=== PATIENT | female | born 1930 | race Caucasian/White ===

== ENCOUNTER 2017-03-13 20:13 | Emergency (ER) | payer OTHER ==
[2017-03-13 20:20] VITALS: BP 139/71; PULSE 65; TEMP 98.2; BMI 26.5
[2017-03-13] MEDS ORDERED: ACETAMINOPHEN 325 MG TABLET (FP) PO ONE (20:54)
--- NOTE | 2017-03-13 20:55 | PDOC ---
History of Present Illness - General Chief Complaint: Laceration Stated Complaint: LACERATION TO LEFT HAND Time Seen by Provider: 03/13/17 20:25 History Source: Patient, Family Exam Limitations: Dementia - History of Present Illness Initial Comments: 03/13/17 20:55 Patient is a 86F with history of dementia, anemia, chondrocalcinosis, hyperlipidemia, hypertension, hypothyroid, Dm, anemia here today complaining of a wound to her left hand. Her daughter reports that the patient was with her home health aid sitting down on a chair in the shower when she suddenly was bleeding from her left hand. The aide denies any fall, head trauma, loss of consciousness or any increased amount of confusion. The wound happened this morning, and patient has been at her baseline the entire time per her daughter. 03/13/17 21:36 Past History - Past Medical History Allergies/Adverse Reactions: Allergies Allergy/AdvReac Type Severity Reaction Status Date / Time No Known Allergies Allergy Verified 03/13/17 20:19 Home Medications: Ambulatory Orders Atorvastatin Ca [Lipitor] 10 mg PO HS #0 tablet 06/14/13 Levothyroxine [Synthroid -] 75 mcg PO DAILY #0 tablet 06/14/13 Metoprolol Succinate [Toprol XL -] 25 mg PO DAILY #0 tab.sr.24h 06/14/13 Multivit-Min/FA/Lycopene/Lut [Centrum Silver Tablet] 1 each PO DAILY #0 tablet 06/14/13 Quinapril HCl [Accupril -] 40 mg PO DAILY #0 tablet 06/14/13 Ascorbic Acid [Vitamin C -] 500 mg PO DAILY #30 tablet 06/20/14 Ferrous Sulfate [Feosol] 325 mg PO BID #60 ud 06/20/14 Slow-Mag - 72.5 mg PO DAILY 12/21/15 Tramadol HCl 50 mg PO PRN PRN 12/21/15 Alprazolam [Xanax] 0.25 mg PO HS 01/22/16 Aspirin [ASA -] 81 mg PO DAILY 01/22/16 Cyanocobalamin (Vitamin B-12) [Vitamin B12] 5,000 mcg PO DAILY 01/22/16 Ibuprofen/Diphenhydramine Cit [Advil Pm Caplet] 1 each PO HS PRN 01/22/16 Memantine HCl [Namenda -] 10 mg PO HS 01/22/16 Metformin HCl [Riomet] 750 mg PO DAILY 01/22/16 Anemia: Yes Asthma: No Cancer: No Cardiac Disorders: No CVA: Yes (TIA) COPD: No CHF: No DVT: No Dementia: Yes Diabetes: Yes GI Disorders: Yes (H/O RECTAL PROLAPSE) Disorders: No HTN: Yes Hypercholesterolemia: Yes Liver Disease: No Suicide Attempt (Hx): No Thyroid Disease: Yes (HYPO) - Surgical History Abdominal Surgery: Yes (RECTAL PROLAPSE REPAIR x 3) Appendectomy: No Cardiac Surgery: No Cholecystectomy: No Lung Surgery: No Neurologic Surgery: No Orthopedic Surgery: No - Immunization History Td Vaccination: Yes TDAP Vaccination: Yes Immunization Up to Date: Yes - Psycho/Social/Smoking Cessation Hx Anxiety: No Suicidal Ideation: No Smoking Status: No Smoking History: Never smoked Have you smoked in the past 12 months: No Number of Cigarettes Smoked Daily: 0 Cigars Per Day: 0 Information on smoking cessation initiated: No Hx Alcohol Use: No Drug/Substance Use Hx: No Substance Use Type: None Hx Substance Use Treatment: No Review of Systems - Review of Systems Able to Perform ROS?: No (2/2 dementia) *Physical Exam - Vital Signs Last Vital Signs Temp Pulse Resp BP Pulse Ox 98.2 F 65 20 139/71 97 03/13/17 20:19 03/13/17 20:19 03/13/17 20:19 03/13/17 20:19 03/13/17 20:19 - Physical Exam Comments: 03/13/17 21:17 GENERAL: Awake, alert, not oriented, in moderate distress HEAD: No signs of trauma, normocephalic, atraumatic CHEST/BACK/HIPS/LEGS/R ARM: No signs of trauma, nontender to palpation L ARM: Moves shoulder and elbow without pain. Bruising along left hand. Not tender in snuffbox. Tender in middle of hand with bruising. Moves all fingers with good strength. Normal cap refill. EYES: PERRLA, EOMI, sclera anicteric, conjunctiva clear ENT: Auricles normal inspection, hearing grossly normal, nares patent, oropharynx clear without exudates. Moist mucosa LUNGS: No distress, speaks full sentences, clear to auscultation bilaterally HEART: Regular rate and rhythm, normal S1 and S2, no murmurs, rubs or gallops, peripheral pulses normal and equal bilaterally. ABDOMEN: Soft, nontender, normoactive bowel sounds. No guarding, no rebound. No masses NEUROLOGICAL: Cranial nerves II through XII grossly intact. Moves all extremities, no focal sensorimotor deficits SKIN: Warm, Dry, normal turgor, no rashes or lesions noted. Medical Decision Making - Medical Decision Making 03/13/17 21:28 86F with dementia, anemia, chondrocalcinosis, hyperlipidemia, hypertension, hypothyroid, Dm, anemia here with hand wound. Vital signs normal and stable. Unable to suture hand due to shallow nature of the wound. Will give tetanus and tylenol to treat. Will evaluate with xray. Will then clean and put on zero form. 03/13/17 22:39 X-ray shows fracture in proximal 5th metacarpal. Wound bandaged with xeroform and put in gutter splint. Will discharge with hand specialist follow up. *DC/Admit/Observation/Transfer Diagnosis at time of Disposition: Metacarpal bone fracture Qualifiers: Encounter type: initial encounter Metacarpal bone: fifth Fracture type: closed Metacarpal location: base Fracture alignment: nondisplaced Laterality: left - Discharge Dispostion Disposition: HOME Condition at time of disposition: Good Admit: No - Referrals Referrals: Behzad Gray MD [Staff Physician] - Laith Wolf MD [Staff Physician] - - Patient Instructions Printed Discharge Instructions: How to Use a Sling, DI for a Hand Fracture Additional Instructions: Please ice the affected area for 20-30 minutes every 3 hours when awake. Try to keep the hand elevated as possible. Use the sling if necessary to keep her from moving her hand. I'm sorry that you broke your hand, and hope you feel better soon! Dr. Brian Gill
--- NOTE | 2017-03-13 21:00 | PDOC ---
Attending Attestation - Resident Resident Name: Brian Gill - ED Attending Attestation I have performed the following: I have examined & evaluated the patient, The case was reviewed & discussed with the resident, I agree w/resident's findings & plan, Exceptions are as noted - HPI HPI: 03/13/17 20:54 86-year-old female with history of dementia, diabetes on aspirin brought in by daughter for evaluation of left hand bruising/swelling/laceration sustained sometime in the late morning. History is lacking some details, per a new home health aide the patient did not fall but she somehow injured her left hand. There was never any loss of consciousness reported, patient was complaining of some left hand pain so daughter brought her in for evaluation. Otherwise notes she is at her baseline, has not noted any other abnormalities. - Physicial Exam PE: 03/13/17 20:56 Vital signs stable, afebrile. Well-appearing, pleasant, baseline dementia Completed exam is atraumatic except for left hand: There is soft tissue bruising over the dorsal/medial aspects over the fourth and fifth metacarpals, no focal bony ttp/deformity. full flexion/extension digits with full strength, brisk cap refill. some limited ROM L wrist, no focal ttp/deformity. v-shaped superficial avulsion laceration over dorsal L hand , some deep tissue exposure but no muscle/tendon injury. no foreign body, no active bleeding though visible stable clots. - Medical Decision Making 03/13/17 21:00 Patient seen and evaluated with the resident. I agree with the overall evaluation, assessment, and management with the following summary of visit: 86-year-old female with overall minor injury to left hand, superficial skin tear without deep tissue involvement, rule out underlying fracture. Neurovascularly intact, otherwise atraumatic and at baseline. Vital signs normal. Left hand and wrist x-ray Update tetanus Wound care, dispo accordingly 03/13/17 22:46 wound care ulnar gutter splint applied to L upper extremity. tolerated well, NVI after splint. sling applied hand referral, [facility], return criteria discussed
[2017-03-13] MEDS ORDERED: DIPHTH,PERTUSS(ACELL),TET 0.5 ML DISP.SYRIN IM ONE (21:01)
[2017-03-13] MEDS ORDERED: ACETAMINOPHEN 325 MG TABLET (FP) ONE (21:44)
== END 2017-03-13 22:54 | disposition home or self-care (01) ==
LOC: JER 20:13
PROC: 3E0234Z Introduction of Serum, Toxoid and Vaccine into Muscle, Percutaneous Approach (ICD-10-PCS; principal; 2017-03-13)
PROC: 2W3DX1Z Immobilization of Left Lower Arm using Splint (ICD-10-PCS; 2017-03-13)
DX: S62.347A Nondisplaced fracture of base of fifth metacarpal bone, left hand, initial encounter for closed fracture (principal); S61.412A Laceration without foreign body of left hand, initial encounter; W18.39XA Other fall on same level, initial encounter; Y93.89 Activity, other specified; Y92.018 Other place in single-family (private) house as the place of occurrence of the external cause; I10 Essential (primary) hypertension; E03.9 Hypothyroidism, unspecified; E11.9 Type 2 diabetes mellitus without complications; Z79.84 Long term (current) use of oral hypoglycemic drugs; F03.90 Unspecified dementia, unspecified severity, without behavioral disturbance, psychotic disturbance, mood disturbance, and anxiety; Z86.73 Personal history of transient ischemic attack (TIA), and cerebral infarction without residual deficits; M11.20 Other chondrocalcinosis, unspecified site
CPT/HCPCS: 73110-TC-LT; 73130-TC-LT; 90715; 99281-25

== ENCOUNTER 2018-05-14 01:23 | Emergency (ER) | payer OTHER ==
--- NOTE | 2018-05-14 02:08 | PDOC ---
History of Present Illness - General Chief Complaint: Injury Stated Complaint: FALL Time Seen by Provider: 05/14/18 01:39 History Source: Patient - History of Present Illness Initial Comments: 05/14/18 02:29 Patient is a 86F with history of dementia, anemia, chondrocalcinosis, hyperlipidemia, hypertension, hypothyroid, Dm, anemia s/p fall at home found by aide laying on the right side on the floor. as per daughter patient is usually with unsteady gait and light was turned off. unsure if it was a trip and fall. as per daughter patient walked to the bathroom after. . denies LOC, NV, hip pain. denies chest, NVD, diaphoresis Past History - Past Medical History Allergies/Adverse Reactions: Allergies Allergy/AdvReac Type Severity Reaction Status Date / Time No Known Allergies Allergy Verified 05/14/18 01:41 Home Medications: Ambulatory Orders Atorvastatin Ca [Lipitor] 10 mg PO HS #0 tablet 06/14/13 Levothyroxine [Synthroid -] 75 mcg PO DAILY #0 tablet 06/14/13 Metoprolol Succinate [Toprol XL -] 25 mg PO DAILY #0 tab.sr.24h 06/14/13 Multivit-Min/FA/Lycopene/Lut [Centrum Silver Tablet] 1 each PO DAILY #0 tablet 06/14/13 Quinapril HCl [Accupril -] 40 mg PO DAILY #0 tablet 06/14/13 Ascorbic Acid [Vitamin C -] 500 mg PO DAILY #30 tablet 06/20/14 Ferrous Sulfate [Feosol] 325 mg PO BID #60 ud 06/20/14 Slow-Mag - 72.5 mg PO DAILY 12/21/15 Tramadol HCl 50 mg PO PRN PRN 12/21/15 Alprazolam [Xanax] 0.25 mg PO HS 01/22/16 Aspirin [ASA -] 81 mg PO DAILY 01/22/16 Cyanocobalamin (Vitamin B-12) [Vitamin B12] 5,000 mcg PO DAILY 01/22/16 Ibuprofen/Diphenhydramine Cit [Advil Pm Caplet] 1 each PO HS PRN 01/22/16 Memantine HCl [Namenda -] 10 mg PO HS 01/22/16 Metformin HCl [Riomet] 750 mg PO DAILY 01/22/16 Cefuroxime Axetil [Ceftin -] 500 mg PO Q12H #20 tablet 05/14/18 Anemia: Yes Asthma: No Cancer: No Cardiac Disorders: No CVA: Yes (TIA) COPD: No CHF: No DVT: No Dementia: Yes Diabetes: Yes GI Disorders: Yes (H/O RECTAL PROLAPSE) Disorders: No HTN: Yes Hypercholesterolemia: Yes Liver Disease: No Thyroid Disease: Yes (HYPO) - Surgical History Abdominal Surgery: Yes (RECTAL PROLAPSE REPAIR x 3) Appendectomy: No Cardiac Surgery: No Cholecystectomy: No Lung Surgery: No Neurologic Surgery: No Orthopedic Surgery: No - Immunization History Td Vaccination: Yes TDAP Vaccination: Yes Immunization Up to Date: Yes - Suicide/Smoking/Psychosocial Hx Smoking Status: No Smoking History: Never smoked Have you smoked in the past 12 months: No Number of Cigarettes Smoked Daily: 0 Cigars Per Day: 0 Information on smoking cessation initiated: No Hx Alcohol Use: No Drug/Substance Use Hx: No Substance Use Type: None Hx Substance Use Treatment: No Trauma Specific PMHX - Complaint Specific PMHX Arthritis: No Review of Systems - Review of Systems Able to Perform ROS?: Yes Is the patient limited Ecuadorean proficient: No Neurological: Yes: Other (hematoma to head) *Physical Exam - Vital Signs Last Vital Signs Temp Pulse Resp BP Pulse Ox 97.6 F 82 18 151/74 96 05/14/18 01:41 05/14/18 01:41 05/14/18 01:41 05/14/18 01:41 05/14/18 01:41 - Physical Exam General Appearance: Yes: Appropriately Dressed HEENT: positive: Other (hematoma to right frontal scalp) Respiratory/Chest: positive: Lungs Clear, Normal Breath Sounds Cardiovascular: positive: Regular Rhythm, Regular Rate Gastrointestinal/Abdominal: positive: Normal Bowel Sounds, Soft Musculoskeletal: positive: Normal Inspection, Other (right leg short? full rom no hip tenderness) Extremity: positive: Normal Capillary Refill, Other (pelvis stable) Integumentary: positive: Normal Color, Dry, Warm Neurologic: positive: Fully Oriented, Alert, Normal Mood/Affect ED Treatment Course - LABORATORY CBC & Chemistry Diagram: 05/14/18 03:06 05/14/18 04:31 Progress Note - Progress Note Progress Note: A: head trauma; elderly fall; unwitnessed fall; uti P: ;labs head ct UA close monitoring. after a period of monitoring patient is usual state of health . daughter at bedside. will d/c home. strict return precautions reviwed with daughter Medical Decision Making - Medical Decision Making 05/14/18 04:05 CT head: No acute brain parenchymal abnormality. No hemorrhage, mass or acute territorial infarct. Atrophy and chronic small vessel ischemic changes. Calcification along lateral aspect of left globe, uncertain significance. No skull fracture. Swelling right frontal scalp. Clear visualized paranasal sinuses. Visualized mastoid air cells clear Ct cervical : No acute fracture. Multilevel spondylosis. Minimal anterolisthesis C3 over C4, possibly degenerative. Straightening of cervical lordosis, possibly due to positioning or muscle spasm. Small blebs right lung apex. 05/14/18 04:19 hip: Single AP view of pelvis shows no acute fracture or dislocation. No additional dedicated images of right hip. No radiopaque foreign body. 05/14/18 04:51 No pneumothorax, pleural effusion, or lung contusion. Cardiomegaly and/or pericardial effusion. Calcified granulomas mid right lung versus prominent vessels seen on end *DC/Admit/Observation/Transfer Diagnosis at time of Disposition: Fall in elderly patient, Unwitnessed fall Head trauma Qualifiers: Encounter type: initial encounter Qualified Code(s): S09.90XA - Unspecified injury of head, initial encounter - Discharge Dispostion Disposition: HOME Condition at time of disposition: Improved - Prescriptions Prescriptions: Cefuroxime Axetil [Ceftin -] 500 mg PO Q12H #20 tablet - Referrals - Patient Instructions Printed Discharge Instructions: DI for Closed Head Injury Additional Instructions: rest and relax as much as possible give cefuroxime as prescribed. you may give tylenol every 6 hours as needed for pain - Post Discharge Activity
[2018-05-14 02:53] VITALS: BMI 26.5
[2018-05-14 03:25] LABS: URINE APPEARANCE SLCLOUDY; URINE BILIRUBIN NEGATIVE (<2.0 mg/dL); URINE COLOR YELLOW; URINE GLUCOSE (UA) NEGATIVE (NEGATIVE); URINE KETONE NEGATIVE (NEGATIVE); URINE LEUK ESTERASE TRACE (NEGATIVE); URINE NITRITE POSITIVE (NEGATIVE); URINE PROTEIN NEGATIVE (NEGATIVE); URINE UROBILINOGEN NEGATIVE mg/dL (0.2-1.0)
[2018-05-14 03:26] LABS: BASO % 0.6 % (0-2.0); EOS % 2.8 % (0-4.5); HEMATOCRIT 24.2 % (32.4-45.2); HEMOGLOBIN 8.1 GM/dL (10.7-15.3); LYMPH % 27.4 % (8-40); MCH 31.3 pg (25.7-33.7); MCHC 33.4 g/dl (32.0-36.0); MEAN CELL VOLUME 93.6 fl (80-96); MEAN PLT VOLUME 8.1 fl (7.5-11.1); MONO % 9.3 % (3.8-10.2); NEUT % 59.9 % (42.8-82.8); PLATELET COUNT 283 K/MM3 (134-434); RBC 2.59 M/mm3 (3.60-5.2); RDW 13.7 % (11.6-15.6); WHITE BLOOD COUNT 5.5 K/mm3 (4.0-10.0)
[2018-05-14 03:38] LABS: URINE BACTERIA MODERATE /hpf (NONE SEEN); URINE HYALINE CAST 3 /lpf; URINE MUCUS RARE
[2018-05-14 03:53] LABS: INR 1.08 (0.83-1.09); PROTHROMBIN TIME (PATIENT) 12.8 SEC (9.7-13.0)
[2018-05-14] MEDS ORDERED: CEFTRIAXONE 1,000 MG in DEXTROSE 5%-WATER - 50 ML IVPB ONE (04:09)
[2018-05-14] MEDS ORDERED: CEFTRIAXONE 1 GM/50 ML BAG ONE (04:18)
[2018-05-14 05:25] LABS: ALBUMIN 3.5 g/dl (3.4-5.0); ALK PHOS 58 U/L (45-117); ANION GAP 6 MMOL/L (8-16); BILIRUBIN,TOTAL 0.2 mg/dL (0.2-1); BLOOD UREA NITROGEN 45 mg/dL (7-18); CALCIUM 8.5 mg/dL (8.5-10.1); CHLORIDE 109 mmol/L (98-107); CO2 26 mmol/L (21-32); CREATININE 0.9 mg/dL (0.55-1.3); GLUCOSE,RANDOM 100 mg/dL (74-106); POTASSIUM 4.1 mmol/L (3.5-5.1); SGOT/AST 17 U/L (15-37); SGPT/ALT 15 U/L (13-61); SODIUM 141 mmol/L (136-145); TOT PROT 6.8 g/dl (6.4-8.2)
[2018-05-14 06:44] VITALS: BP 116/62; PULSE 74; TEMP 98.1
--- NOTE | 2018-05-14 11:53 | EKG ---
Test Reason : Blood Pressure : / mmHG Vent. Rate : 063 BPM Atrial Rate : 063 BPM P-R Int : 178 ms QRS Dur : 086 ms QT Int : 428 ms P-R-T Axes : 073 005 045 degrees QTc Int : 437 ms NORMAL SINUS RHYTHM ANTERIOR INFARCT (CITED ON OR BEFORE 21-DEC-2015) ABNORMAL ECG WHEN COMPARED WITH ECG OF 20-JAN-2016 22:22, NO SIGNIFICANT CHANGE WAS FOUND Confirmed by LUPILLO RUSSELL, GAYLE ([id number]) on 05/14/2018 11:52:54 AM Referred By: Confirmed By:GAYLE WESLEY MD
== END 2018-05-14 06:46 | disposition home or self-care (01) ==
LOC: JER 01:23
DX: S09.90XA Unspecified injury of head, initial encounter (principal); W18.39XA Other fall on same level, initial encounter; Y93.9 Activity, unspecified; Y92.099 Unspecified place in other non-institutional residence as the place of occurrence of the external cause; D64.9 Anemia, unspecified; E11.9 Type 2 diabetes mellitus without complications; I10 Essential (primary) hypertension; E78.00 Pure hypercholesterolemia, unspecified; E03.9 Hypothyroidism, unspecified
CPT/HCPCS: 36415; 70450-TC; 71046-TC-FY; 72125-TC; 73523-TC-FY; 80053; 81003; 81015; 82550; 84484; 85025; 85610; 87086; 87186; 93005; 93010; 99283-25

== ENCOUNTER 2019-04-18 14:49 | Emergency (ER) | payer OTHER ==
--- NOTE | 2019-04-18 15:22 | PDOC ---
History of Present Illness - General Chief Complaint: Abnormal Lab Results (Outside) Stated Complaint: IRON DEFFICIENCY Time Seen by Provider: 04/18/19 14:59 - History of Present Illness Initial Comments: 04/18/19 15:19 89 yo F PMH dementia, multiple colon surgeries including experimental surgery for rectal prolapse in 2011 (per son, 9th person in the world to undergo procedure, involved attaching to abdominal wall instead of sacrum, anemia, chondrocalcinosis, HTN, HLD, hypothyroid, Dm, presenting with low hemoglobin. All history per son. Patient baseline: walks, eats, takes pills, uses bathroom by herself, but does not talk "unless she really has to say something". Reportedly getting worse over the past year. Son states that patient had become gradually weaker over past several weeks, requiring more help to get up and walk. Requested labs and had blood drawn on Friday. Hgb of 7.6, reportedly has never been that low in the past (although patient has required transfusions before). Usually runs in 8s or 9s. Son says that other than weakness, patient seems like her normal self. There is a 24 hour aide service at home, mother lives with son. Specifically have been looking out for blood in stool or urine, have been no changes. No apparent fevers/chills, dark stools, or urinary changes per the son via mobile home technician. Past History - Past Medical History Allergies/Adverse Reactions: Allergies Allergy/AdvReac Type Severity Reaction Status Date / Time No Known Allergies Allergy Verified 04/18/19 14:54 Home Medications: Ambulatory Orders Atorvastatin Ca [Lipitor] 10 mg PO HS #0 tablet 06/14/13 Levothyroxine [Synthroid -] 75 mcg PO DAILY #0 tablet 06/14/13 Metoprolol Succinate [Toprol XL -] 25 mg PO DAILY #0 tab.sr.24h 06/14/13 Multivit-Min/FA/Lycopene/Lut [Centrum Silver Tablet] 1 each PO DAILY #0 tablet 06/14/13 Quinapril HCl [Accupril -] 40 mg PO DAILY #0 tablet 06/14/13 Ascorbic Acid [Vitamin C -] 500 mg PO DAILY #30 tablet 06/20/14 Tramadol HCl 50 mg PO PRN PRN 12/21/15 Alprazolam [Xanax] 2 tablet PO HS 01/22/16 Aspirin [ASA -] 81 mg PO DAILY 01/22/16 Cyanocobalamin (Vitamin B-12) [Vitamin B12] 5,000 mcg PO DAILY 01/22/16 Ibuprofen/Diphenhydramine Cit [Advil Pm Caplet] 1 each PO HS PRN 01/22/16 Memantine HCl [Namenda -] 20 mg PO HS 01/22/16 Metformin HCl [Riomet] 750 mg PO DAILY 01/22/16 Cephalexin [Keflex] 500 mg PO BID #14 capsule 04/18/19 Anemia: Yes Asthma: No Cancer: No Cardiac Disorders: No CVA: Yes (TIA) COPD: No CHF: No DVT: No Dementia: Yes Diabetes: Yes GI Disorders: Yes (H/O RECTAL PROLAPSE) Disorders: No HTN: Yes Hypercholesterolemia: Yes Liver Disease: No Thyroid Disease: Yes (HYPO) - Surgical History Abdominal Surgery: Yes (RECTAL PROLAPSE REPAIR x 3) Appendectomy: No Cardiac Surgery: No Cholecystectomy: No Lung Surgery: No Neurologic Surgery: No Orthopedic Surgery: No - Immunization History Td Vaccination: Yes TDAP Vaccination: Yes Immunization Up to Date: Yes - Psycho Social/Smoking Cessation Hx Smoking Status: No Smoking History: Never smoked Have you smoked in the past 12 months: No Number of Cigarettes Smoked Daily: 0 Cigars Per Day: 0 Hx Alcohol Use: No Drug/Substance Use Hx: No Substance Use Type: None Hx Substance Use Treatment: No Review of Systems - Review of Systems Able to Perform ROS?: No (dementia, not responsive) *Physical Exam - Physical Exam Comments: 04/18/19 18:43 Gen: well-developed, well-nourished, NAD Neuro: not cooperative, EOMI, PERRLA HEENT: atraumatic, normocephalic, dry mucous membranes Neck: trachea midline, supple CV: regular rate, regular rhythm, no murmurs, rubs, or gallops Pulm: CTA b/l, no wheezing Abd: soft, non-distended, non-tender MSK: full ROM, intact pulses Extr: no edema, no deformities Skin: warm, dry ED Treatment Course - LABORATORY CBC & Chemistry Diagram: 04/18/19 18:10 04/18/19 15:43 Medical Decision Making - Medical Decision Making 04/18/19 15:45 89 yo F with weakness and outpatient Hgb 7.6. - CBC, CMP, trop - EKG, CXRport - coags, T+S - lactic acid - CT head - reassess 04/18/19 16:28 Hgb 8.7, stool occult negative. 04/18/19 16:46 CMP unremarkable. 04/18/19 17:43 UTI. Patient previously miguel-sensitive, will plan for dc with Keflex. Will get repeat CBC to ensure Hgb remains stable. 04/18/19 18:16 CXR possible R basilar granuloma, unchanged from prior. 04/18/19 18:40 Repeat Hgb 8.1. Will f/u CT head, likely dc home with close follow-up in 1 to 2 days. 04/18/19 19:[address] No (on service for Dr. Weller), updated him on patient. Will f /u CT head, likely dc home. 04/18/19 19:40 CT head with chronic cerebral atrophy and microvascular ischemia, no acute pathology. Will dc home. Discharge - Discharge Information Problems reviewed: Yes Clinical Impression/Diagnosis: UTI (urinary tract infection) - Admission No - Additional Discharge Information Prescriptions: Cephalexin [Keflex] 500 mg PO BID #14 capsule - Follow up/Referral Referrals: Beka Weller MD [Primary Care Provider] - - Patient Discharge Instructions Patient Printed Discharge Instructions: DI for Urinary Tract Infection (UTI) Additional Instructions: You were seen for increased weakness and decreased hemoglobin levels. Your imaging did not show any acute pathology, and your hemoglobin was found to be at your baseline in the ED, however, you were found to have a urinary tract infection. Please take your Keflex as prescribed, and follow up with your primary care doctor in 1 to 2 days. Return to the ED if you develop worsening symptoms, especially chest pain or shortness of breath. - Post Discharge Activity
[2019-04-18 15:30] VITALS: PULSE 79; TEMP 98.3; BMI 20.5
[2019-04-18 16:02] LABS: BASO % 0.5 % (0-2.0); EOS % 3.6 % (0-4.5); HEMOGLOBIN 8.7 GM/dL (10.7-15.3); MCH 31.3 pg (25.7-33.7); MCHC 33.4 g/dl (32.0-36.0); MEAN CELL VOLUME 93.9 fl (80-96); MEAN PLT VOLUME 7.5 fl (7.5-11.1); MONO % 9.9 % (3.8-10.2); PLATELET COUNT 338 K/MM3 (134-434); RBC 2.77 M/mm3 (3.60-5.2); RDW 13.7 % (11.6-15.6)
[2019-04-18 16:16] LABS: INR 1.13 (0.83-1.09); PROTHROMBIN TIME (PATIENT) 13.3 SEC (9.7-13.0)
[2019-04-18 16:19] LABS: ACTIVATED PTT 27.2 SECONDS (25.2-36.5)
[2019-04-18 16:30] LABS: ALBUMIN 3.8 g/dl (3.4-5.0); ALK PHOS 103 U/L (45-117); ANION GAP 9 MMOL/L (8-16); BILIRUBIN,TOTAL 0.2 mg/dL (0.2-1); BLOOD UREA NITROGEN 39.3 mg/dL (7-18); CALCIUM 9.6 mg/dL (8.5-10.1); CHLORIDE 104 mmol/L (98-107); CO2 27 mmol/L (21-32); GLUCOSE,RANDOM 96 mg/dL (74-106); POTASSIUM 4.9 mmol/L (3.5-5.1); SGOT/AST 29 U/L (15-37); SGPT/ALT 31 U/L (13-61); SODIUM 139 mmol/L (136-145); TOT PROT 7.6 g/dl (6.4-8.2)
[2019-04-18 17:12] LABS: EPI CELLS 0.5 /HPF (0-5/HPF); HYALINE CASTS 15 /lpf (0-8); URINE APPEARANCE CLOUDY; URINE BACTERIA 983.4 /hpf (NEGATIVE); URINE BILIRUBIN NEGATIVE (NEGATIVE); URINE COLOR YELLOW; URINE GLUCOSE (UA) NEGATIVE (NEGATIVE); URINE KETONE NEGATIVE (NEGATIVE); URINE LEUK ESTERASE 3+ (NEGATIVE); URINE NITRITE POSITIVE (NEGATIVE); URINE PROTEIN NEGATIVE (NEGATIVE); URINE RBC 1 /hpf (0-4); URINE UROBILINOGEN 0.2 mg/dL (0.2-1.0); URINE WBC 59 /hpf (0-5)
[2019-04-18] MEDS ORDERED: CEPHALEXIN MONOHYDRATE 500 MG CAPSULE (UD) PO ONE (17:28)
[2019-04-18] MEDS ORDERED: CEPHALEXIN MONOHYDRATE 500 MG CAPSULE (UD) ONE (18:22)
[2019-04-18 18:29] LABS: HEMATOCRIT 24.3 % (32.4-45.2); HEMOGLOBIN 8.1 GM/dL (10.7-15.3); MCH 31.1 pg (25.7-33.7); MCHC 33.4 g/dl (32.0-36.0); MEAN CELL VOLUME 93.4 fl (80-96); MEAN PLT VOLUME 7.1 fl (7.5-11.1); PLATELET COUNT 319 K/MM3 (134-434); RDW 13.6 % (11.6-15.6); WHITE BLOOD COUNT 6.1 K/mm3 (4.0-10.0)
--- NOTE | 2019-04-18 18:39 | PDOC ---
Documentation entered by Kenroy Hernandez SCRIBE, acting as scribe for Anne Marie Wilburn MD. Anne Marie Wilburn MD: This documentation has been prepared by the David fischer Daniel, SCRIBE, under my direction and personally reviewed by me in its entirety. I confirm that the documentation accurately reflects all work, treatment, procedures, and medical decision making performed by me. Attending Attestation - Resident Resident Name: RogerFelipe - ED Attending Attestation I have performed the following: I have examined & evaluated the patient, The case was reviewed & discussed with the resident, I agree w/resident's findings & plan, Exceptions are as noted - HPI HPI: 04/18/19 15:45 The patient is an 89 year old female with a past medical history of dementia, multiple colon surgeries, HTN, HLD, chondrocalcinosis, hypothyroidism, and anemia requiring transfusions here today for evaluation of a HGB of 7.6. The patients son reports that he has noticed increased weakness in the patient over the past 6 months and she has required more help to walk and sit up. Denies falls. He reports speaking with the patients PCP who had them come in today due to the low HGB. Pt lives with son and she has a 24 hour [employer]. Pt has not had any dark or bloody stools. Patient was unable to provide history due to dementia. Allergies: NKA PCP: Beka Weller - Physicial Exam PE: 04/18/19 15:45 GENERAL: Awake, alert, non verbal in no acute distress. HEAD: No signs of trauma EYES:EOMI, sclera anicteric, conjunctiva clear ENT: Oropharynx clear without exudates. Moist mucosa NECK: Normal ROM, supple, no lymphadenopathy, JVD, or masses LUNGS: Breath sounds equal, clear to auscultation bilaterally. No wheezes, and no crackles HEART: Regular rate and rhythm, normal S1 and S2, no murmurs, rubs or gallops ABDOMEN: Soft, nontender, normoactive bowel sounds. No guarding, no rebound. No masses EXTREMITIES: Normal range of motion, no edema. No cords, erythema, or tenderness BACK: No midline spinal tenderness in cervical/thoracic/lumbar region NEUROLOGICAL: Non verbal, cranial nerves intact, moving all extremities spontaneously SKIN: Warm, Dry, normal turgor, no rashes or lesions noted. - Medical Decision Making 04/18/19 17:51 89-year-old female with multiple medical problems including dementia, and anemia requiring transfusion presents emergency department with 6 months of weakness and outpatient hemoglobin of 7.6. Son reports over the last 6 months she has needed more assistance and ambulating from him and from the home health aide. He does report that once she is up she is able to get around at baseline. Repeated CBC, and did a broad work-up for generalized weakness. Hemoglobin is 8.7 today. We will repeat to make sure that this is accurate as she will likely require blood transfusion if it is below 8. Previous levels have been in the high 8s as well. Her work-up was also remarkable for a UTI, which could be contributing to her generalized weakness. Previous urine cultures have been reviewed, will treat with Keflex. If repeat CBC is stable, the plan will be to discharge with close outpatient primary follow-up. 04/18/19 18:50 Rpt hgb 8.1, which is close to baseline. No need for transfusion Case discussed by Dr. Duran with Dr. No (covering PMD Dr. Weller), pt okay for outpt f/u [facility] wnl All results discussed with son, pt stable for DC home. Strict return precautions discussed. All questions answered Pt to f/u with Dr. Weller in 1-2 days Heart Score/ECG Review #1 04/18/19 17:51 Twelve-lead EKG was performed and reviewed by me. Normal sinus rhythm, rate 74. Normal axis and intervals. No ST elevations or T wave inversions.
[2019-04-18 20:49] VITALS: BP 165/75
--- NOTE | 2019-04-19 15:56 | EKG ---
Test Reason : Blood Pressure : / mmHG Vent. Rate : 074 BPM Atrial Rate : 074 BPM P-R Int : 164 ms QRS Dur : 082 ms QT Int : 384 ms P-R-T Axes : 028 -02 050 degrees QTc Int : 426 ms NORMAL SINUS RHYTHM ANTERIOR INFARCT (CITED ON OR BEFORE 21-DEC-2015) ABNORMAL ECG WHEN COMPARED WITH ECG OF 14-MAY-2018 02:03, NO SIGNIFICANT CHANGE WAS FOUND Confirmed by YOSEF RUSSELL, LULI ([id number]) on 04/19/2019 3:56:15 PM Referred By: Confirmed By:LULI NAVAS MD
== END 2019-04-18 20:51 | disposition home or self-care (01) ==
LOC: JER 14:49
DX: N39.0 Urinary tract infection, site not specified (principal); D64.9 Anemia, unspecified; I10 Essential (primary) hypertension; E03.9 Hypothyroidism, unspecified; E11.9 Type 2 diabetes mellitus without complications; Z79.84 Long term (current) use of oral hypoglycemic drugs; F03.90 Unspecified dementia, unspecified severity, without behavioral disturbance, psychotic disturbance, mood disturbance, and anxiety; M11.20 Other chondrocalcinosis, unspecified site
CPT/HCPCS: 36415; 70450-TC; 71045-TC-FY; 80053; 81003; 82272; 83605; 84484; 85025; 85027; 85610; 85730; 86850; 86900; 86901; 87086; 87186; 93005; 93010; 99284-25

== ENCOUNTER 2019-07-03 00:52 | Inpatient (IN) | payer OTHER ==
[2019-07-03] MEDS ORDERED: ACETAMINOPHEN 1000 MG/100 ML VIAL (NON FORMULARY) IVPB ONE ×2 (01:04→20:45)
[2019-07-03] MEDS ORDERED: SODIUM CHLORIDE 1,000 ML IV STA (01:05)
--- NOTE | 2019-07-03 01:11 | PDOC ---
History of Present Illness - General Stated Complaint: RESPIRATORY DISTRESS History Source: EMS Exam Limitations: Clinical Condition - History of Present Illness Initial Comments: 07/03/19 01:06 89YOF with h/o anemia, chondrocalcinosis, HTN, HLD, hypothyroid, and DM who was BIBEMS for respiratory failure. EMS notes they were called to the patient's home because she was having difficulty breathing. They note on their arrival on scene, her SpO2 was down to 78% on RA and her RR was about 42. She was also hypotensive to the 70s systolic, and decreased mental status. They intubated her with etomidate + succinylcholine with improvement in her SpO2. The patient lives with her family, family notes they last saw her acting normally albeit with URI symptoms this afternoon and note she went to her room for what they believed was a nap. She was laying supine when EMS arrived. Family noted the patient was exposed to known influenza + contacts on about 06/23/19 and had developed URI symptoms since that time, coughing up green phlegm. Past History - Past Medical History Allergies/Adverse Reactions: Allergies Allergy/AdvReac Type Severity Reaction Status Date / Time No Known Allergies Allergy Verified 04/18/19 14:54 Home Medications: Ambulatory Orders Atorvastatin Ca [Lipitor] 10 mg PO HS #0 tablet 06/14/13 Levothyroxine [Synthroid -] 75 mcg PO DAILY #0 tablet 06/14/13 Metoprolol Succinate [Toprol XL -] 25 mg PO DAILY #0 tab.sr.24h 06/14/13 Multivit-Min/FA/Lycopene/Lut [Centrum Silver Tablet] 1 each PO DAILY #0 tablet 06/14/13 Quinapril HCl [Accupril -] 40 mg PO DAILY #0 tablet 06/14/13 Ascorbic Acid [Vitamin C -] 500 mg PO DAILY #30 tablet 06/20/14 Tramadol HCl 50 mg PO PRN PRN 12/21/15 Alprazolam [Xanax] 2 tablet PO HS 01/22/16 Aspirin [ASA -] 81 mg PO DAILY 01/22/16 Cyanocobalamin (Vitamin B-12) [Vitamin B12] 5,000 mcg PO DAILY 01/22/16 Ibuprofen/Diphenhydramine Cit [Advil Pm Caplet] 1 each PO HS PRN 07/25/16 Memantine HCl [Namenda -] 20 mg PO HS 01/22/16 Metformin HCl [Riomet] 750 mg PO DAILY 01/22/16 Cephalexin [Keflex] 500 mg PO BID #14 capsule 04/18/19 Anemia: Yes Asthma: No Cancer: No Cardiac Disorders: No CVA: Yes (TIA) COPD: No CHF: No DVT: No Dementia: Yes Diabetes: Yes GI Disorders: Yes (H/O RECTAL PROLAPSE) Disorders: No HTN: Yes Hypercholesterolemia: Yes Liver Disease: No Thyroid Disease: Yes (HYPO) - Surgical History Abdominal Surgery: Yes (RECTAL PROLAPSE REPAIR x 3) Appendectomy: No Cardiac Surgery: No Cholecystectomy: No Lung Surgery: No Neurologic Surgery: No Orthopedic Surgery: No - Immunization History Td Vaccination: Yes TDAP Vaccination: Yes Immunization Up to Date: Yes - Psycho Social/Smoking Cessation Hx Smoking Status: No Smoking History: Never smoked Have you smoked in the past 12 months: No Number of Cigarettes Smoked Daily: 0 Cigars Per Day: 0 Hx Alcohol Use: No Drug/Substance Use Hx: No Substance Use Type: None Hx Substance Use Treatment: No Review of Systems - Review of Systems Able to Perform ROS?: No (intubated) *Physical Exam - Physical Exam 07/03/19 01:12 GENERAL: unconscious, intubated, elderly, cachectic HEENT: pupils 2mm sluggishly reactive to light, no e/o facial or head trauma NECK/BACK: no obvious neck hematoma or other trauma CARDIOVASCULAR: extremities lukewarm, 4 second capillary refill, no peripheral/ carotid/femoral pulses LUNGS/RESPIRATORY: breath sounds equal bilaterally, +crackles, no epigastric breath sounds GI/ABDOMEN: symmetric, atraumatic outwardly : wearing diaper EXTREMITIES: no evidence of acute trauma SKIN: lukewarm and dry, no jaundice, no rash, no bruising, no skin breakdown, no cuts NEUROLOGICAL: unable to assess A/O, GCS is 3, patient is unable to participate in exam Heart Score/ECG Review #1 07/03/19 01:10 Sinus tachycardia, rate 112, normal axis, QTc 505, Marked ST depressions in V456 , TWI in I, II, aVL. #2 07/03/19 02:31 Sinus rhythm, rate 94, normal axis, QTc 487, ST depressions improving laterally and now present only in V56, TWI in I, aVL. #3 07/03/19 05:46 Sinus rhythm, rate 82, normal axis, QTc 497 otherwise normal intervals, ST depressions are much improved in lateral leads ED Treatment Course - LABORATORY CBC & Chemistry Diagram: 07/03/19 01:20 07/03/19 01:20 - ADDITIONAL ORDERS Additional order review: Laboratory Results 07/03/19 01:02 POC Glucometer 308 07/03/19 01:02 POC Glucometer 308 Medical Decision Making - Critical Care Time Total Critical Care Time (minutes): 60 Critical Care Statement: The care of this patient involved high complexity decision making to prevent further life threatening deterioration of the patient 's condition and/or to evaluate & treat vital organ system(s) failure or risk of failure. - Medical Decision Making 07/03/19 01:21 89YOF p/w respiratory failure s/p RSI by EMS. Initial Vital Signs Pulse Resp Pulse Ox 116 H 14 100 07/03/19 01:18 07/03/19 01:18 07/03/19 01:18 Exam: As noted in Physical Exam section. DDX IBNLT: Most likely sepsis d/t influenza +/- PNA, other possibility acidosis (e.g. DKA), hyperkalemia, hypokalemia, hypoglycemia, hypothermia, less likely tamponade, tension PTX, thrombosis (ND or PE), or toxins (e.g. toxic overdose). W/U ordered: Monitor, FSBG, rectal temp, EKG CXR ABG CBCD CMP Mg Phos Cardiac panel TSH Lactate BCx UA UCx TX ordered: Large bore IV x2, Rapid IVF resuscitation Procedures done: Intubation, Transvenous pacer placement EKG: Reviewed; results as noted in ECG Review section. CXR: Possible left lower lobe consolidation Laboratory Tests 07/03/19 07/03/19 07/03/19 01:01 01:02 01:04 WBC RBC Hgb Hct MCV MCH MCHC RDW Plt Count MPV Absolute Neuts (auto) Neutrophils % Lymphocytes % Monocytes % Eosinophils % Basophils % Nucleated RBC % PT with INR 19.60 H INR 1.65 H PTT (Actin FS) 34.8 Anticoagulation Therapy Puncture Site ABG pH ABG pCO2 at Pt Temp ABG pO2 at Pt Temp ABG HCO3 ABG O2 Sat (Measured) ABG O2 Content ABG Base Excess Teto Test VBG pH POC VBG pCO2 POC VBG pO2 VBG HCO3 VBG O2 Sat (Brando) VBG Base Excess Carboxyhemoglobin Methemoglobin O2 Delivery Device Oxygen Flow Rate Vent Mode Vent Rate Mechanical Rate Pressure Support Vent Sodium Potassium Chloride Carbon Dioxide Anion Gap BUN Creatinine Est GFR (CKD-EPI)AfAm Est GFR (CKD-EPI)NonAf POC Glucometer 308 Random Glucose Lactic Acid 3.0 H* Calcium Total Bilirubin AST ALT Alkaline Phosphatase Creatine Kinase Creatine Kinase Index CK-MB (CK-2) Troponin I Total Protein Albumin Urine Color Urine Appearance Urine pH Ur Specific [place] Urine Protein Urine Glucose (UA) Urine Ketones Urine Blood Urine Nitrite Urine Bilirubin Urine Urobilinogen Ur Leukocyte Esterase Urine WBC (Auto) Urine RBC (Auto) Urine Casts (Auto) U Epithel Cells (Auto) Urine Bacteria (Auto) Influenza A (Rapid) Influenza B (Rapid) 07/03/19 07/03/19 07/03/19 01:06 01:15 01:20 WBC 5.3 RBC 2.81 L Hgb 8.3 L Hct 27.3 L MCV 96.9 H MCH 29.6 MCHC 30.6 L RDW 15.0 D Plt Count 184 D MPV 9.1 D Absolute Neuts (auto) 4.6 Neutrophils % 85.5 H D Lymphocytes % 8.2 D Monocytes % 6.0 Eosinophils % 0.1 D Basophils % 0.2 Nucleated RBC % 0 PT with INR INR PTT (Actin FS) Anticoagulation Therapy No Result Required. Puncture Site Right brachial ABG pH 7.28 L ABG pCO2 at Pt Temp 33.5 L ABG pO2 at Pt Temp 172 H ABG HCO3 15.4 L ABG O2 Sat (Measured) 98.4 H ABG O2 Content 19.3 ABG Base Excess -10.0 L Teto Test Positive VBG pH POC VBG pCO2 POC VBG pO2 VBG HCO3 VBG O2 Sat (Brando) VBG Base Excess Carboxyhemoglobin 0.5 Methemoglobin < 1.0 O2 Delivery Device Vent Oxygen Flow Rate Yes Vent Mode No Result Required. Vent Rate 14 Mechanical Rate No Result Required. Pressure Support Vent No Result Required. Sodium Potassium Chloride Carbon Dioxide Anion Gap BUN Creatinine Est GFR (CKD-EPI)AfAm Est GFR (CKD-EPI)NonAf POC Glucometer Random Glucose Lactic Acid Calcium Total Bilirubin AST ALT Alkaline Phosphatase Creatine Kinase Creatine Kinase Index CK-MB (CK-2) Troponin I 1.11 H* Total Protein Albumin Urine Color Urine Appearance Urine pH Ur Specific [place] Urine Protein Urine Glucose (UA) Urine Ketones Urine Blood Urine Nitrite Urine Bilirubin Urine Urobilinogen Ur Leukocyte Esterase Urine WBC (Auto) Urine RBC (Auto) Urine Casts (Auto) U Epithel Cells (Auto) Urine Bacteria (Auto) Influenza A (Rapid) Influenza B (Rapid) 07/03/19 07/03/19 07/03/19 01:20 01:20 01:28 WBC RBC Hgb Hct MCV MCH MCHC RDW Plt Count MPV Absolute Neuts (auto) Neutrophils % Lymphocytes % Monocytes % Eosinophils % Basophils % Nucleated RBC % PT with INR INR PTT (Actin FS) Anticoagulation Therapy Puncture Site ABG pH ABG pCO2 at Pt Temp ABG pO2 at Pt Temp ABG HCO3 ABG O2 Sat (Measured) ABG O2 Content ABG Base Excess Teto Test VBG pH 7.25 L POC VBG pCO2 38.7 POC VBG pO2 < 49 H VBG HCO3 16.5 L VBG O2 Sat (Brando) 73.3 VBG Base Excess -9.5 L Carboxyhemoglobin Methemoglobin O2 Delivery Device Oxygen Flow Rate Vent Mode Vent Rate Mechanical Rate Pressure Support Vent Sodium 158 H Potassium 4.6 Chloride 131 H Carbon Dioxide 16 L Anion Gap 11 BUN 113.4 H* Creatinine 3.0 H Est GFR (CKD-EPI)AfAm 15.33 Est GFR (CKD-EPI)NonAf 13.22 POC Glucometer Random Glucose 307 H Lactic Acid Calcium 8.4 L Total Bilirubin 0.3 AST 32 ALT 15 Alkaline Phosphatase 70 Creatine Kinase 685 H Creatine Kinase Index 0.3 CK-MB (CK-2) 2.4 2.6 Troponin I Total Protein 6.1 L Albumin 2.6 L Urine Color Urine Appearance Urine pH Ur Specific [place] Urine Protein Urine Glucose (UA) Urine Ketones Urine Blood Urine Nitrite Urine Bilirubin Urine Urobilinogen Ur Leukocyte Esterase Urine WBC (Auto) Urine RBC (Auto) Urine Casts (Auto) U Epithel Cells (Auto) Urine Bacteria (Auto) Influenza A (Rapid) Influenza B (Rapid) 07/03/19 07/03/19 02:14 02:15 WBC RBC Hgb Hct MCV MCH MCHC RDW Plt Count MPV Absolute Neuts (auto) Neutrophils % Lymphocytes % Monocytes % Eosinophils % Basophils % Nucleated RBC % PT with INR INR PTT (Actin FS) Anticoagulation Therapy Puncture Site ABG pH ABG pCO2 at Pt Temp ABG pO2 at Pt Temp ABG HCO3 ABG O2 Sat (Measured) ABG O2 Content ABG Base Excess Teto Test VBG pH POC VBG pCO2 POC VBG pO2 VBG HCO3 VBG O2 Sat (Brando) VBG Base Excess Carboxyhemoglobin Methemoglobin O2 Delivery Device Oxygen Flow Rate Vent Mode Vent Rate Mechanical Rate Pressure Support Vent Sodium Potassium Chloride Carbon Dioxide Anion Gap BUN Creatinine Est GFR (CKD-EPI)AfAm Est GFR (CKD-EPI)NonAf POC Glucometer Random Glucose Lactic Acid Calcium Total Bilirubin AST ALT Alkaline Phosphatase Creatine Kinase Creatine Kinase Index CK-MB (CK-2) Troponin I Total Protein Albumin Urine Color Other Urine Appearance Turbid Urine pH 8.5 H D Ur Specific [place] 1.017 Urine Protein 1+ H Urine Glucose (UA) Negative Urine Ketones Negative Urine Blood Negative Urine Nitrite Positive H Urine Bilirubin Negative Urine Urobilinogen 0.2 Ur Leukocyte Esterase 3+ H Urine WBC (Auto) 36 Urine RBC (Auto) 1 Urine Casts (Auto) 16 U Epithel Cells (Auto) 1.0 Urine Bacteria (Auto) 165.1 Influenza A (Rapid) Negative Influenza B (Rapid) Negative ADMIT The Pt is unsafe for discharge at this time. They require further hospital observation, workup, and treatment. Microblog sent to [facility] for admission. Blank Decision to Admit order is placed per ED protocol. 07/03/19 02:[address] Sosa for ICU, consult order placed. Spoke with Dr. Saad Linton for Cardiology, consult order placed. 07/03/19 06:08 Repeat EKG with markedly improved ST-T changes. Repeat troponin slightly decreased (1.10). Patient's repeat MAP is 78, systolic consistently >100 at this time with IVF. Vital Signs Pulse Rate 80 07/03/19 06:00 Respiratory Rate 16 07/03/19 06:00 Blood Pressure 107/60 07/03/19 06:00 O2 Sat by Pulse Oximetry (%) 100 07/03/19 06:00 Discharge - Discharge Information Problems reviewed: Yes Clinical Impression/Diagnosis: JELANI (acute kidney injury), Hypernatremia Respiratory failure Qualifiers: Chronicity: acute Respiratory failure complication: hypoxia Qualified Code(s): J96.01 - Acute respiratory failure with hypoxia Sepsis Qualifiers: Sepsis type: sepsis due to unspecified organism Sepsis acute organ dysfunction status: unspecified Qualified Code(s): A41.9 - Sepsis, unspecified organism Condition: Guarded - Admission Yes - Follow up/Referral - Patient Discharge Instructions - Post Discharge Activity
--- NOTE | 2019-07-03 01:14 | PDOC ---
Attending Attestation - Resident Resident Name: Clara Cleaning - ED Attending Attestation I have performed the following: I have examined & evaluated the patient, The case was reviewed & discussed with the resident, I agree w/resident's findings & plan, Exceptions are as noted - HPI HPI: 07/03/19 01:07 Ms. Miguel is an 89 yo F who presents to the ER intubated via EMS after being found unresponsive at home Last seen earlier this afternoon and was at her baseline This evening, pt was found by family unresponsive EMS called Pt noted to be tachypneic, febrile, FS 300s Pt unresponsive and intubated in the field Per family, cold like symptoms over the past few days 07/03/19 01:09 - Physicial Exam PE: 07/03/19 01:14 On examination: GENERAL: The patient is unresponsive, intubated, ENT: ETT in place, pupils are sluggishly reactive to light bilaterally NECK: Normal range of motion, supple LUNGS: Rhoncherous breath sounds bilaterally HEART: Tachycardiac, regular, no murmurs ABDOMEN: Soft, nondistended EXTREMITIES: No edema. NEUROLOGICAL: unresponsive SKIN: Warm, Dry, normal turgor, no rashes or lesions noted. - Critical Care Time Total Critical Care Time: 60 Critical Care Statement: The care of this patient involved high complexity decision making to prevent further life threatening deterioration of the patient 's condition and/or to evaluate & treat vital organ system(s) failure or risk of failure. - Medical Decision Making 07/03/19 01:22 89 yo F presenting unresponsive noted to be febrile Intubated in the field DD: Sepsis secondary to: Pulmonary process, UTI, Intraabdominal infection, Influenza Will do: Labs (Sepsis Order Set) EKG IVF Tylenol Abx Admit EKG: ST rate of 112 bpm, axis nml, intervals nml - pr:142ms, QRS: 96ms, QTc:505ms Deep st depressions v4-v6 biphasic T wave v5, t wave inversion v6 07/03/19 05:01 Laboratory Tests 07/03/19 07/03/19 07/03/19 01:01 01:04 01:06 WBC Hgb Hct Plt Count INR 1.65 H ABG pH ABG pCO2 at Pt Temp ABG pO2 at Pt Temp Sodium Potassium Chloride Carbon Dioxide BUN Creatinine Random Glucose Lactic Acid 3.0 H* Creatine Kinase Creatine Kinase Index CK-MB (CK-2) Troponin I 1.11 H* Urine Nitrite Ur Leukocyte Esterase Urine WBC (Auto) Urine RBC (Auto) Influenza A (Rapid) Influenza B (Rapid) 07/03/19 07/03/19 07/03/19 01:15 01:20 01:20 WBC 5.3 Hgb 8.3 L Hct 27.3 L Plt Count 184 D INR ABG pH 7.28 L ABG pCO2 at Pt Temp 33.5 L ABG pO2 at Pt Temp 172 H Sodium 158 H Potassium 4.6 Chloride 131 H Carbon Dioxide 16 L BUN 113.4 H* Creatinine 3.0 H Random Glucose 307 H Lactic Acid Creatine Kinase Creatine Kinase Index CK-MB (CK-2) 2.4 Troponin I Urine Nitrite Ur Leukocyte Esterase Urine WBC (Auto) Urine RBC (Auto) Influenza A (Rapid) Influenza B (Rapid) 07/03/19 07/03/19 07/03/19 01:20 02:14 02:15 WBC Hgb Hct Plt Count INR ABG pH ABG pCO2 at Pt Temp ABG pO2 at Pt Temp Sodium Potassium Chloride Carbon Dioxide BUN Creatinine Random Glucose Lactic Acid Creatine Kinase 685 H Creatine Kinase Index 0.3 CK-MB (CK-2) Troponin I Urine Nitrite Positive H Ur Leukocyte Esterase 3+ H Urine WBC (Auto) 36 Urine RBC (Auto) 1 Influenza A (Rapid) Negative Influenza B (Rapid) Negative Will admit to ICU IVF given with improved BP Will admit to ICU for sepsis ? Urinary source vs. pneumonia
[2019-07-03] MEDS ORDERED: SODIUM CHLORIDE 0.9% 500 ML INFUS.BAG IV ONE ×2 (01:36→04:50)
[2019-07-03] MEDS ORDERED: ACETAMINOPHEN INJECTION 100 ML IVPB ONE (01:40)
[2019-07-03 01:41] LABS: ARTERIAL BLD GAS O2 SATURATION 98.4 % (95-98); ARTERIAL BLOOD GAS PCO2 33.5 mmHg (35-45); ARTERIAL BLOOD GAS PO2 172 mmHg (80-100); ARTERIAL BLOOD GAS pH 7.28 (7.35-7.45); CARBOXYHEMOGLOBIN 0.5 % (0-2)
[2019-07-03 01:48] LABS: BASO % 0.2 % (0-2.0); EOS % 0.1 % (0-4.5); HEMATOCRIT 27.3 % (32.4-45.2); HEMOGLOBIN 8.3 GM/dL (10.7-15.3); LYMPH % 8.2 % (8-40); MCH 29.6 pg (25.7-33.7); MCHC 30.6 g/dl (32.0-36.0); MEAN CELL VOLUME 96.9 fl (80-96); MEAN PLT VOLUME 9.1 fl (7.5-11.1); NEUT % 85.5 % (42.8-82.8); PLATELET COUNT 184 K/MM3 (134-434); RBC 2.81 M/mm3 (3.60-5.2); WHITE BLOOD COUNT 5.3 K/mm3 (4.0-10.0)
[2019-07-03] MEDS ORDERED: AZITHROMYCIN IVPB 500 MG in DEXTROSE 5%-WATER - 250 ML IVPB ONE (01:50)
[2019-07-03] MEDS ORDERED: PIPERACILLIN/TAZOB 3.375 GM 3.375 GM in DEXTROSE 5%-WATER - 50 ML IVPB ONE ×2 (01:50→02:45)
[2019-07-03 01:51] LABS: VENOUS PC02 38.7 mmHg (38-52); VENOUS PH 7.25 (7.31-7.41)
[2019-07-03 01:52] LABS: ALLENS TEST POSITIVE
[2019-07-03 01:55] LABS: VENOUS PO2 < 49 mmHg (28-48)
[2019-07-03 02:07] LABS: INR 1.65 (0.83-1.09); PROTHROMBIN TIME (PATIENT) 19.6 SEC (9.7-13.0)
[2019-07-03 02:10] LABS: ACTIVATED PTT 34.8 SECONDS (25.2-36.5)
[2019-07-03 02:16] LABS: ALBUMIN 2.6 g/dl (3.4-5.0); BILIRUBIN,TOTAL 0.3 mg/dL (0.2-1); CALCIUM 8.4 mg/dL (8.5-10.1); POTASSIUM 4.6 mmol/L (3.5-5.1); TOT PROT 6.1 g/dl (6.4-8.2)
[2019-07-03 02:24] LABS: BLOOD UREA NITROGEN 113.4 mg/dL (7-18)
[2019-07-03 02:32] LABS: HYALINE CASTS 16 /lpf (0-8); PH,URINE 8.5 (5.0-8.0); URINE APPEARANCE TURBID; URINE BACTERIA 165.1 /hpf (NEGATIVE); URINE BILIRUBIN NEGATIVE (NEGATIVE); URINE COLOR OTHER; URINE GLUCOSE (UA) NEGATIVE (NEGATIVE); URINE KETONE NEGATIVE (NEGATIVE); URINE LEUK ESTERASE 3+ (NEGATIVE); URINE NITRITE POSITIVE (NEGATIVE); URINE PROTEIN 1+ (NEGATIVE); URINE RBC 1 /hpf (0-4); URINE UROBILINOGEN 0.2 mg/dL (0.2-1.0); URINE WBC 36 /hpf (0-5)
[2019-07-03] MEDS ORDERED: AZITHROMYCIN IVPB 500 MG/250 ML BAG IVPB ONE (02:42)
[2019-07-03 03:12] LABS: YEAST NONE SEEN (NEGATIVE)
[2019-07-03] MEDS ORDERED: fentaNYL CITRATE 250 MCG/5 ML VIAL ONE ×3 (03:44→23:38)
--- NOTE | 2019-07-03 04:23 | CONSULT ---
Consultation: REQUESTING PROVIDER: CONSULT REQUEST: We have been asked to medically evaluate this patient for ( specify). acute respiratory failure and sepsis HISTORY OF PRESENT ILLNESS: 89y/o F hx of TIA, anemia (possibly of chronic disease), dementia, HTN, NIDDM, HLD brought in to the ED by EMS with respiratory failure from home. Per daughter providing hx at bedside, patient has had URI symptoms for the last 5 days. She had a known exposure to bronchitis and influenza around [place] time. She worsened acutely today and son found her at home in respiratory distress, with a fever and more altered than base line. EMS was called to scene and found her SPO2 to be in the 70's and RR 42 and she was hypotensive. She was intubated in the field prior to ED arrival. Daughter endorses greenish disharge from nose and sneezing. Denies COPD, smoking hx, asthma or intubation in the past. ED course -hypotensive on arrival 1.5L NS bolus given as of time of sign out, BP 135/66 -Lactic acid 3.0, trop 1.11 -EKG lateral t-wave inversions and depressions qtc 505 . cardiology consult on board (Dr. Linton) -abx zosyn and azithromycin - on vent settings in ED A/c mode volume control, RR 14, Tidal volume 450. PEEP 5, FiO2 100 REVIEW OF SYSTEMS: CONSTITUTIONAL: present : fevers Absent: chills, diaphoresis, generalized weakness, malaise, loss of appetite, weight change HEENT: present: rhinorrhea, nasal congestion, Absent: throat pain, throat swelling, difficulty swallowing, mouth swelling, ear pain, eye pain, visual changes CARDIOVASCULAR: Absent: chest pain, syncope, palpitations, irregular heart rate, lightheadedness , peripheral edema RESPIRATORY: Absent: cough, shortness of breath, dyspnea with exertion, orthopnea, wheezing, stridor, hemoptysis GASTROINTESTINAL: Absent: abdominal pain, abdominal distension, nausea, vomiting, diarrhea, constipation, melena, hematochezia GENITOURINARY: Absent: dysuria, frequency, urgency, hesitancy, hematuria, flank pain, genital pain MUSCULOSKELETAL: Absent: myalgia, arthralgia, joint swelling, back pain, neck pain SKIN: Absent: rash, itching, pallor HEMATOLOGIC/IMMUNOLOGIC: Absent: easy bleeding, easy bruising, lymphadenopathy, frequent infections ENDOCRINE: Absent: unexplained weight gain, unexplained weight loss, heat intolerance, cold intolerance NEUROLOGIC: Absent: headache, focal weakness or paresthesias, dizziness, unsteady gait, seizure, mental status changes, bladder or bowel incontinence PSYCHIATRIC: Absent: anxiety, depression, suicidal or homicidal ideation, hallucinations. PHYSICAL EXAMINATION Vital Signs - 24 hr 07/03/19 07/03/19 07/03/19 01:00 01:01 01:18 Temperature 103.3 F H 103.3 F H Pulse Rate 99 H 116 H Pulse Rate [ Apical] Respiratory 16 14 Rate Blood Pressure 64/48 L Blood Pressure [Left Arm] O2 Sat by Pulse 92 L 100 Oximetry (%) 07/03/19 07/03/19 07/03/19 01:30 01:40 02:04 Temperature Pulse Rate Pulse Rate [ 99 H 96 H 96 H Apical] Respiratory 16 14 16 Rate Blood Pressure Blood Pressure 102/52 L 133/66 135/66 [Left Arm] O2 Sat by Pulse 100 100 100 Oximetry (%) 07/03/19 03:51 Temperature Pulse Rate Pulse Rate [ Apical] Respiratory 15 Rate Blood Pressure Blood Pressure [Left Arm] O2 Sat by Pulse Oximetry (%) GENERAL: intubated, sedated. HEAD: Normal with no signs of trauma. EYES: Pupils equal, round and reactive to light. EARS, NOSE, THROAT: Ears normal, nares patent, oropharynx clear without exudates. Moist mucous membranes. NECK: trachea midline no JVD. LUNGS: decreased breath sounds on right. HEART: Regular rate and rhythm, normal S1 and S2 without murmur, rub or gallop. ABDOMEN: Soft, nontender, not distended, normoactive bowel sounds.. UPPER EXTREMITIES: 2+ pulses, warm, well-perfused. No cyanosis. No clubbing. Cap refill <2 seconds. No peripheral edema.5cm skin tear on left tricep LOWER EXTREMITIES: 2+ pulses, warm, well-perfused. trace edema NEUROLOGICAL: sedated. evaluation not possible. SKIN: Warm, dry, normal turgor, no rashes or lesions noted. 5cm skin tear on left tricep Laboratory Results - last 24 hr 07/03/19 07/03/19 07/03/19 01:01 01:02 01:04 WBC RBC Hgb Hct MCV MCH MCHC RDW Plt Count MPV Absolute Neuts (auto) Neutrophils % Lymphocytes % Monocytes % Eosinophils % Basophils % Nucleated RBC % PT with INR 19.60 H INR 1.65 H PTT (Actin FS) 34.8 Anticoagulation Therapy Puncture Site ABG pH ABG pCO2 at Pt Temp ABG pO2 at Pt Temp ABG HCO3 ABG O2 Sat (Measured) ABG O2 Content ABG Base Excess Teto Test VBG pH POC VBG pCO2 POC VBG pO2 VBG HCO3 VBG O2 Sat (Brando) VBG Base Excess Carboxyhemoglobin Methemoglobin O2 Delivery Device Oxygen Flow Rate Vent Mode Vent Rate Mechanical Rate Pressure Support Vent Sodium Potassium Chloride Carbon Dioxide Anion Gap BUN Creatinine Est GFR (CKD-EPI)AfAm Est GFR (CKD-EPI)NonAf POC Glucometer 308 Random Glucose Lactic Acid 3.0 H* Calcium Total Bilirubin AST ALT Alkaline Phosphatase Creatine Kinase Creatine Kinase Index CK-MB (CK-2) Troponin I Total Protein Albumin Urine Color Urine Appearance Urine pH Ur Specific [place] Urine Protein Urine Glucose (UA) Urine Ketones Urine Blood Urine Nitrite Urine Bilirubin Urine Urobilinogen Ur Leukocyte Esterase Urine WBC (Auto) Urine RBC (Auto) Urine Casts (Auto) U Epithel Cells (Auto) Urine Bacteria (Auto) Urine Yeast (Auto) Influenza A (Rapid) Influenza B (Rapid) 07/03/19 07/03/19 07/03/19 01:06 01:15 01:20 WBC 5.3 RBC 2.81 L Hgb 8.3 L Hct 27.3 L MCV 96.9 H MCH 29.6 MCHC 30.6 L RDW 15.0 D Plt Count 184 D MPV 9.1 D Absolute Neuts (auto) 4.6 Neutrophils % 85.5 H D Lymphocytes % 8.2 D Monocytes % 6.0 Eosinophils % 0.1 D Basophils % 0.2 Nucleated RBC % 0 PT with INR INR PTT (Actin FS) Anticoagulation Therapy No Result Required. Puncture Site Right brachial ABG pH 7.28 L ABG pCO2 at Pt Temp 33.5 L ABG pO2 at Pt Temp 172 H ABG HCO3 15.4 L ABG O2 Sat (Measured) 98.4 H ABG O2 Content 19.3 ABG Base Excess -10.0 L Teto Test Positive VBG pH POC VBG pCO2 POC VBG pO2 VBG HCO3 VBG O2 Sat (Brando) VBG Base Excess Carboxyhemoglobin 0.5 Methemoglobin < 1.0 O2 Delivery Device Vent Oxygen Flow Rate Yes Vent Mode No Result Required. Vent Rate 14 Mechanical Rate No Result Required. Pressure Support Vent No Result Required. Sodium Potassium Chloride Carbon Dioxide Anion Gap BUN Creatinine Est GFR (CKD-EPI)AfAm Est GFR (CKD-EPI)NonAf POC Glucometer Random Glucose Lactic Acid Calcium Total Bilirubin AST ALT Alkaline Phosphatase Creatine Kinase Creatine Kinase Index CK-MB (CK-2) Troponin I 1.11 H* Total Protein Albumin Urine Color Urine Appearance Urine pH Ur Specific [place] Urine Protein Urine Glucose (UA) Urine Ketones Urine Blood Urine Nitrite Urine Bilirubin Urine Urobilinogen Ur Leukocyte Esterase Urine WBC (Auto) Urine RBC (Auto) Urine Casts (Auto) U Epithel Cells (Auto) Urine Bacteria (Auto) Urine Yeast (Auto) Influenza A (Rapid) Influenza B (Rapid) 07/03/19 07/03/19 07/03/19 01:20 01:20 01:28 WBC RBC Hgb Hct MCV MCH MCHC RDW Plt Count MPV Absolute Neuts (auto) Neutrophils % Lymphocytes % Monocytes % Eosinophils % Basophils % Nucleated RBC % PT with INR INR PTT (Actin FS) Anticoagulation Therapy Puncture Site ABG pH ABG pCO2 at Pt Temp ABG pO2 at Pt Temp ABG HCO3 ABG O2 Sat (Measured) ABG O2 Content ABG Base Excess Teto Test VBG pH 7.25 L POC VBG pCO2 38.7 POC VBG pO2 < 49 H VBG HCO3 16.5 L VBG O2 Sat (Brando) 73.3 VBG Base Excess -9.5 L Carboxyhemoglobin Methemoglobin O2 Delivery Device Oxygen Flow Rate Vent Mode Vent Rate Mechanical Rate Pressure Support Vent Sodium 158 H Potassium 4.6 Chloride 131 H Carbon Dioxide 16 L Anion Gap 11 BUN 113.4 H* Creatinine 3.0 H Est GFR (CKD-EPI)AfAm 15.33 Est GFR (CKD-EPI)NonAf 13.22 POC Glucometer Random Glucose 307 H Lactic Acid Calcium 8.4 L Total Bilirubin 0.3 AST 32 ALT 15 Alkaline Phosphatase 70 Creatine Kinase 685 H Creatine Kinase Index 0.3 CK-MB (CK-2) 2.4 2.6 Troponin I Total Protein 6.1 L Albumin 2.6 L Urine Color Urine Appearance Urine pH Ur Specific [place] Urine Protein Urine Glucose (UA) Urine Ketones Urine Blood Urine Nitrite Urine Bilirubin Urine Urobilinogen Ur Leukocyte Esterase Urine WBC (Auto) Urine RBC (Auto) Urine Casts (Auto) U Epithel Cells (Auto) Urine Bacteria (Auto) Urine Yeast (Auto) Influenza A (Rapid) Influenza B (Rapid) 07/03/19 07/03/19 02:14 02:15 WBC RBC Hgb Hct MCV MCH MCHC RDW Plt Count MPV Absolute Neuts (auto) Neutrophils % Lymphocytes % Monocytes % Eosinophils % Basophils % Nucleated RBC % PT with INR INR PTT (Actin FS) Anticoagulation Therapy Puncture Site ABG pH ABG pCO2 at Pt Temp ABG pO2 at Pt Temp ABG HCO3 ABG O2 Sat (Measured) ABG O2 Content ABG Base Excess Teto Test VBG pH POC VBG pCO2 POC VBG pO2 VBG HCO3 VBG O2 Sat (Brando) VBG Base Excess Carboxyhemoglobin Methemoglobin O2 Delivery Device Oxygen Flow Rate Vent Mode Vent Rate Mechanical Rate Pressure Support Vent Sodium Potassium Chloride Carbon Dioxide Anion Gap BUN Creatinine Est GFR (CKD-EPI)AfAm Est GFR (CKD-EPI)NonAf POC Glucometer Random Glucose Lactic Acid Calcium Total Bilirubin AST ALT Alkaline Phosphatase Creatine Kinase Creatine Kinase Index CK-MB (CK-2) Troponin I Total Protein Albumin Urine Color Other Urine Appearance Turbid Urine pH 8.5 H D Ur Specific [place] 1.017 Urine Protein 1+ H Urine Glucose (UA) Negative Urine Ketones Negative Urine Blood Negative Urine Nitrite Positive H Urine Bilirubin Negative Urine Urobilinogen 0.2 Ur Leukocyte Esterase 3+ H Urine WBC (Auto) 36 Urine RBC (Auto) 1 Urine Casts (Auto) 16 U Epithel Cells (Auto) 1.0 Urine Bacteria (Auto) 165.1 Urine Yeast (Auto) None seen Influenza A (Rapid) Negative Influenza B (Rapid) Negative Active Medications Generic Name Dose Route Start Last Admin Trade Name Freq PRN Reason Stop Dose Admin Fentanyl 500 mcg/ Dextrose 100 mls @ 5 mls/hr 07/03/19 03:30 IVPB TITR SILVINO 25 MCG/HR ASSESSMENT/PLAN: 89y/o F hx of TIA, anemia (possibly of chronic disease), dementia, HTN, NIDDM, HLD brought in to the ED by EMS with respiratory failure from home. Neuro -intubated and sedated - hx of dementia CV r/o NSTEMI -elevated troponin 1.11 -t-wave inversions in lateral leads. qtc 505 -2g magnesium sulfate for elevated qtc. follow to see if given -monitor troponins -repeat EKG for this a.m. EKG order in already -Cardiology on board Dr. Linton -hypotensive on arrival, BP now 135/66 after fluid resuscitation with 1.5L NS. continue to monitor Pulm acute hypoxic respiratory failure -intubated - azithromycin and zosyn in ED -vent setting at this time A/c mode volume control, RR 14, Tidal volume 450. PEEP 5, FiO2 100 - monitor -f/u respiratory therapy consult ID Sepsis -Lactic acid 3.0. -Patient received 1.5 L NS in ED -f/u repeat lactic acid values -abx zosyn and azithromycin received in the ED -1 g of vancomycin per primary team recs -Consult ID UTI -UA + leukocyte esterase and nitrites -on abx as stated above -moreira catheter in place Renal JELANI -BUN 113 -Cr 3 -Monitor CMP -Consult nephrology F: Hypernatremic 158 received NS in ED switched to 1/2 NS at 100ml/hr E: Hypernatremic DVT: Heparin 5000 units SQ Visit type - Emergency Visit Emergency Visit: Yes ED Registration Date: 07/03/19 Care time: The patient presented to the Emergency Department on the above date and was hospitalized for further evaluation of their emergent condition. - New Patient This patient is new to me today: No - Critical Care Critical Care patient: No ATTENDING PHYSICIAN STATEMENT I saw and evaluated the patient. I reviewed the resident's note and discussed the case with the resident. I agree with the resident's findings and plan as documented. SUBJECTIVE: OBJECTIVE: ASSESSMENT AND PLAN:
[2019-07-03] MEDS ORDERED: MAGNESIUM SULF 50% (8.12 MEQ/2 ML-1 GM VIAL) IVPB ONE (04:32)
[2019-07-03] MEDS: FENTANYL INJECTION 500 MCG in DEXTROSE 5%-WATER - 90 ML IVPB SCH (04:58)
--- NOTE | 2019-07-03 05:12 | HP ---
CHIEF COMPLAINT: respiratory distress PCP: [facility] HISTORY OF PRESENT ILLNESS: Ms. Miguel is an 89y/o female with dementia, HTN, HLD, hypothyroidism, anemia , TIA, and NIDDM who presents with respiratory distress and decrease in mental status. Pt's daughter at bedside reports patient had been more tired than usual yesterday, but her appetite was normal. She was put to bed at 8:00pm and the pt' s son checked on her around 10:30pm. He found her on her back with labored breathing. EMS arrived and pt was 78% on room air, RR 42, and systolic pressure in the 70s. She was sedated and intubated. During transport, pt's left arm was scratched and left a skin tear. Pt's daughter reports that over the last week pt had a runny and stuffy nose with some greenish discharge. She also had sick contacts, one of which may have had the flu. The pt did not receive the flu vaccine this season. She lives with son's family and is able to ambulate with a walker at baseline. She is mostly non-verbal but does answer "yes" or "no" to simple questions. Pt's daughter reports recent UTI. She is unsure which abx she was taking. ER course was notable for: (1) NS 3L, azithromycin, zosyn (2) EKG ST depression V5 and V6, troponin 1.11, cards made aware (3) UA nitrite pos, +3 leuk esterase, 36 WBCs (4) Cr 3.0, Na 158 PAST MEDICAL HISTORY: dementia, HTN, HLD, hypothyroidism, anemia, TIA, and NIDDM PAST SURGICAL HISTORY: rectal prolapse x3 Social History: Smoking: never smoked Lives with son's family Allergies No Known Allergies Allergy (Verified 04/18/19 14:54) HOME MEDICATIONS: Home Medications Medication Instructions Recorded Atorvastatin Ca [Lipitor] 10 mg PO HS #0 tablet 06/14/13 Levothyroxine [Synthroid -] 75 mcg PO DAILY #0 tablet 06/14/13 Metoprolol Succinate [Toprol XL -] 25 mg PO DAILY #0 tab.sr.24h 06/14/13 Multivit-Min/FA/Lycopene/Lut 1 each PO DAILY #0 tablet 06/14/13 [Centrum Silver Tablet] Quinapril HCl [Accupril -] 40 mg PO DAILY #0 tablet 06/14/13 Ascorbic Acid [Vitamin C -] 500 mg PO DAILY #30 tablet 06/20/14 Tramadol HCl 50 mg PO PRN PRN 12/21/15 Alprazolam [Xanax] 2 tablet PO HS 01/22/16 Aspirin [ASA -] 81 mg PO DAILY 01/22/16 Cyanocobalamin (Vitamin B-12) 5,000 mcg PO DAILY 01/22/16 [Vitamin B12] Ibuprofen/Diphenhydramine Cit 1 each PO HS PRN 01/22/16 [Advil Pm Caplet] Memantine HCl [Namenda -] 20 mg PO HS 01/22/16 Metformin HCl [Riomet] 750 mg PO DAILY 01/22/16 Cephalexin [Keflex] 500 mg PO BID #14 capsule 04/18/19 REVIEW OF SYSTEMS see HPI PHYSICAL EXAMINATION Vital Signs - 24 hr 07/03/19 07/03/19 07/03/19 01:00 01:01 01:15 Temperature 103.3 F H 103.3 F H Pulse Rate 99 H Pulse Rate [ Apical] Respiratory 16 14 Rate Blood Pressure 64/48 L Blood Pressure [Left Arm] O2 Sat by Pulse 92 L Oximetry (%) 07/03/19 07/03/19 07/03/19 01:18 01:30 01:40 Temperature Pulse Rate 116 H Pulse Rate [ 99 H 96 H Apical] Respiratory 14 16 14 Rate Blood Pressure Blood Pressure 102/52 L 133/66 [Left Arm] O2 Sat by Pulse 100 100 100 Oximetry (%) 07/03/19 07/03/19 02:04 03:51 Temperature Pulse Rate Pulse Rate [ 96 H Apical] Respiratory 16 15 Rate Blood Pressure Blood Pressure 135/66 [Left Arm] O2 Sat by Pulse 100 Oximetry (%) GENERAL: sedated and intubated HEAD: Normal with no signs of trauma. EYES: Pupils equal, round and reactive to light EARS, NOSE, THROAT: Ears normal, nares patent, dry mucous membranes. NECK: No JVD or masses noted LUNGS: Clear to auscultation anteriorly HEART: Regular rate and rhythm, 3/6 systolic murmur RUSB ABDOMEN: Soft, not distended, normoactive bowel sounds MUSCULOSKELETAL: Unable to assess UPPER EXTREMITIES: Warm, well-perfused. No peripheral edema. Left upper arm bandaged. LOWER EXTREMITIES: Warm, well-perfused. No peripheral edema. NEUROLOGICAL: Unable to assess PSYCHIATRIC: Unable to assess SKIN: Warm, dry, normal turgor Laboratory Results - last 24 hr 07/03/19 07/03/19 07/03/19 01:01 01:02 01:04 WBC RBC Hgb Hct MCV MCH MCHC RDW Plt Count MPV Absolute Neuts (auto) Neutrophils % Lymphocytes % Monocytes % Eosinophils % Basophils % Nucleated RBC % PT with INR 19.60 H INR 1.65 H PTT (Actin FS) 34.8 Anticoagulation Therapy Puncture Site ABG pH ABG pCO2 at Pt Temp ABG pO2 at Pt Temp ABG HCO3 ABG O2 Sat (Measured) ABG O2 Content ABG Base Excess Teto Test VBG pH POC VBG pCO2 POC VBG pO2 VBG HCO3 VBG O2 Sat (Brando) VBG Base Excess Carboxyhemoglobin Methemoglobin O2 Delivery Device Oxygen Flow Rate Vent Mode Vent Rate Mechanical Rate Pressure Support Vent Sodium Potassium Chloride Carbon Dioxide Anion Gap BUN Creatinine Est GFR (CKD-EPI)AfAm Est GFR (CKD-EPI)NonAf POC Glucometer 308 Random Glucose Lactic Acid 3.0 H* Calcium Total Bilirubin AST ALT Alkaline Phosphatase Creatine Kinase Creatine Kinase Index CK-MB (CK-2) Troponin I Total Protein Albumin Urine Color Urine Appearance Urine pH Ur Specific [place] Urine Protein Urine Glucose (UA) Urine Ketones Urine Blood Urine Nitrite Urine Bilirubin Urine Urobilinogen Ur Leukocyte Esterase Urine WBC (Auto) Urine RBC (Auto) Urine Casts (Auto) U Epithel Cells (Auto) Urine Bacteria (Auto) Urine Yeast (Auto) Influenza A (Rapid) Influenza B (Rapid) 07/03/19 07/03/19 07/03/19 01:06 01:15 01:20 WBC 5.3 RBC 2.81 L Hgb 8.3 L Hct 27.3 L MCV 96.9 H MCH 29.6 MCHC 30.6 L RDW 15.0 D Plt Count 184 D MPV 9.1 D Absolute Neuts (auto) 4.6 Neutrophils % 85.5 H D Lymphocytes % 8.2 D Monocytes % 6.0 Eosinophils % 0.1 D Basophils % 0.2 Nucleated RBC % 0 PT with INR INR PTT (Actin FS) Anticoagulation Therapy No Result Required. Puncture Site Right brachial ABG pH 7.28 L ABG pCO2 at Pt Temp 33.5 L ABG pO2 at Pt Temp 172 H ABG HCO3 15.4 L ABG O2 Sat (Measured) 98.4 H ABG O2 Content 19.3 ABG Base Excess -10.0 L Teto Test Positive VBG pH POC VBG pCO2 POC VBG pO2 VBG HCO3 VBG O2 Sat (Brando) VBG Base Excess Carboxyhemoglobin 0.5 Methemoglobin < 1.0 O2 Delivery Device Vent Oxygen Flow Rate Yes Vent Mode No Result Required. Vent Rate 14 Mechanical Rate No Result Required. Pressure Support Vent No Result Required. Sodium Potassium Chloride Carbon Dioxide Anion Gap BUN Creatinine Est GFR (CKD-EPI)AfAm Est GFR (CKD-EPI)NonAf POC Glucometer Random Glucose Lactic Acid Calcium Total Bilirubin AST ALT Alkaline Phosphatase Creatine Kinase Creatine Kinase Index CK-MB (CK-2) Troponin I 1.11 H* Total Protein Albumin Urine Color Urine Appearance Urine pH Ur Specific [place] Urine Protein Urine Glucose (UA) Urine Ketones Urine Blood Urine Nitrite Urine Bilirubin Urine Urobilinogen Ur Leukocyte Esterase Urine WBC (Auto) Urine RBC (Auto) Urine Casts (Auto) U Epithel Cells (Auto) Urine Bacteria (Auto) Urine Yeast (Auto) Influenza A (Rapid) Influenza B (Rapid) 07/03/19 07/03/19 07/03/19 01:20 01:20 01:28 WBC RBC Hgb Hct MCV MCH MCHC RDW Plt Count MPV Absolute Neuts (auto) Neutrophils % Lymphocytes % Monocytes % Eosinophils % Basophils % Nucleated RBC % PT with INR INR PTT (Actin FS) Anticoagulation Therapy Puncture Site ABG pH ABG pCO2 at Pt Temp ABG pO2 at Pt Temp ABG HCO3 ABG O2 Sat (Measured) ABG O2 Content ABG Base Excess Teto Test VBG pH 7.25 L POC VBG pCO2 38.7 POC VBG pO2 < 49 H VBG HCO3 16.5 L VBG O2 Sat (Brando) 73.3 VBG Base Excess -9.5 L Carboxyhemoglobin Methemoglobin O2 Delivery Device Oxygen Flow Rate Vent Mode Vent Rate Mechanical Rate Pressure Support Vent Sodium 158 H Potassium 4.6 Chloride 131 H Carbon Dioxide 16 L Anion Gap 11 BUN 113.4 H* Creatinine 3.0 H Est GFR (CKD-EPI)AfAm 15.33 Est GFR (CKD-EPI)NonAf 13.22 POC Glucometer Random Glucose 307 H Lactic Acid Calcium 8.4 L Total Bilirubin 0.3 AST 32 ALT 15 Alkaline Phosphatase 70 Creatine Kinase 685 H Creatine Kinase Index 0.3 CK-MB (CK-2) 2.4 2.6 Troponin I Total Protein 6.1 L Albumin 2.6 L Urine Color Urine Appearance Urine pH Ur Specific [place] Urine Protein Urine Glucose (UA) Urine Ketones Urine Blood Urine Nitrite Urine Bilirubin Urine Urobilinogen Ur Leukocyte Esterase Urine WBC (Auto) Urine RBC (Auto) Urine Casts (Auto) U Epithel Cells (Auto) Urine Bacteria (Auto) Urine Yeast (Auto) Influenza A (Rapid) Influenza B (Rapid) 07/03/19 07/03/19 02:14 02:15 WBC RBC Hgb Hct MCV MCH MCHC RDW Plt Count MPV Absolute Neuts (auto) Neutrophils % Lymphocytes % Monocytes % Eosinophils % Basophils % Nucleated RBC % PT with INR INR PTT (Actin FS) Anticoagulation Therapy Puncture Site ABG pH ABG pCO2 at Pt Temp ABG pO2 at Pt Temp ABG HCO3 ABG O2 Sat (Measured) ABG O2 Content ABG Base Excess Teto Test VBG pH POC VBG pCO2 POC VBG pO2 VBG HCO3 VBG O2 Sat (Brando) VBG Base Excess Carboxyhemoglobin Methemoglobin O2 Delivery Device Oxygen Flow Rate Vent Mode Vent Rate Mechanical Rate Pressure Support Vent Sodium Potassium Chloride Carbon Dioxide Anion Gap BUN Creatinine Est GFR (CKD-EPI)AfAm Est GFR (CKD-EPI)NonAf POC Glucometer Random Glucose Lactic Acid Calcium Total Bilirubin AST ALT Alkaline Phosphatase Creatine Kinase Creatine Kinase Index CK-MB (CK-2) Troponin I Total Protein Albumin Urine Color Other Urine Appearance Turbid Urine pH 8.5 H D Ur Specific [place] 1.017 Urine Protein 1+ H Urine Glucose (UA) Negative Urine Ketones Negative Urine Blood Negative Urine Nitrite Positive H Urine Bilirubin Negative Urine Urobilinogen 0.2 Ur Leukocyte Esterase 3+ H Urine WBC (Auto) 36 Urine RBC (Auto) 1 Urine Casts (Auto) 16 U Epithel Cells (Auto) 1.0 Urine Bacteria (Auto) 165.1 Urine Yeast (Auto) None seen Influenza A (Rapid) Negative Influenza B (Rapid) Negative ASSESSMENT/PLAN: Ms. Miguel is an 89y/o female with dementia, HTN, HLD, hypothyroidism, anemia , TIA, and NIDDM who presents with respiratory distress (O2 78% on RA) and decrease in mental status. She was intubated and sedated in the field. #acute hypoxic respiratory failure ?aspiration PNA vs pneumonitis -flu negative -CXR shows increased RLL vasculature which is less than previous CXR, no infiltrate noted -Zosyn -Vanco -ventilation -ID consulted #tropinemia with ST changes in lateral leads likely 2/2 demand ischemia -trop 1.11-->1.10 -V5 V6 ST depression -repeat trop given elevation -cards consulted #JELANI Cr 3 -IV fluids -nephro consulted #UTI -positive UA -Zosyn -urine cx DVT Ppx heparin FEN 1/2NS monitor Na NPO dispo ICU Visit type - Emergency Visit Emergency Visit: Yes ED Registration Date: 07/03/19 Care time: The patient presented to the Emergency Department on the above date and was hospitalized for further evaluation of their emergent condition. - New Patient This patient is new to me today: Yes Date on this admission: 07/03/19 - Critical Care Critical Care patient: Yes Total Critical Care Time (in minutes): 35 Critical Care Statement: The care of this patient involved high complexity decision making to prevent further life threatening deterioration of the patient 's condition and/or to evaluate & treat vital organ system(s) failure or risk of failure. ATTENDING PHYSICIAN STATEMENT I saw and evaluated the patient. I reviewed the resident's note and discussed the case with the resident. I agree with the resident's findings and plan as documented. SUBJECTIVE: OBJECTIVE: ASSESSMENT AND PLAN:
--- NOTE | 2019-07-03 05:22 | PN ---
Teaching Attending Note Name of Resident: Maria Del Carmen Nova ATTENDING PHYSICIAN STATEMENT I saw and evaluated the patient. I reviewed the resident's note and discussed the case with the resident. I agree with the resident's findings and plan as documented. SUBJECTIVE: Patient is an 89 year old woman with a PMH of Anemia, Chondrocalcinosis, HTN, HLD, Rectal prolapse (s/p repair), Hypothyroidism and NIDDM who was BIBEMS for respiratory failure. EMS notes they were called to the patient's home because she was having difficulty breathing. On their arrival on scene, her SpO2 was down to 78% on Room Air and her respiratory rate was about 42. She was also hypotensive to the 70s systolic, and decreased mental status. They intubated her with etomidate + succinylcholine with improvement in her SpO2. The patient lives with her family. Family report they last saw her acting normally albeit with URI symptoms this afternoon and note she went to her room for what they believed was a nap. She was laying supine when EMS arrived. Family noted the patient was exposed to known influenza + contacts on about 06/23/19 and had developed URI symptoms since that time, coughing up green phlegm. No history of alcohol, tobacco or illicit drug use. OBJECTIVE: Intubated, sedated and unresponsive Vital Signs Period Temp Pulse Resp BP Sys/Tolentino Pulse Ox Last 24 Hr 103.3 F-103.3 F 96-116 14-16 64-135/48-66 92-100 HEENT: No Jaundice, eye redness or discharge, PERRLA, EOMI. Normocephalic, atraumatic. External ears are normal. No nasal discharge. Neck: Supple, nontender. No palpable adenopathy or thyromegaly. No JVD Chest: Good effort. Clear to auscultation and percussion. Heart: Regular. No S3, rub or murmur Abdomen: Not distended, soft, nontender and no HSM. No rebound or guarding. Normal bowel sounds. Ext: Peripheral pulses intact. No leg edema. LUE skin tear. [place] in place. Skin: Warm and dry. No petechiae, rash or ecchymosis. Neuro: Intubated and sedated and unresponsive. Psych: Unable to assess. Current Medications Generic Name Dose Route Start Last Admin Trade Name Freq PRN Reason Stop Dose Admin Fentanyl 500 mcg/ Dextrose 100 mls @ 5 mls/hr 07/03/19 03:30 07/03/19 04:58 IVPB 25 mcg/hr TITR SILVINO 5 mls/hr Administration 25 MCG/HR Home Medications Medication Instructions Recorded Atorvastatin Ca [Lipitor] 10 mg PO HS #0 tablet 06/14/13 Levothyroxine [Synthroid -] 75 mcg PO DAILY #0 tablet 06/14/13 Metoprolol Succinate [Toprol XL -] 25 mg PO DAILY #0 tab.sr.24h 06/14/13 Multivit-Min/FA/Lycopene/Lut 1 each PO DAILY #0 tablet 06/14/13 [Centrum Silver Tablet] Quinapril HCl [Accupril -] 40 mg PO DAILY #0 tablet 06/14/13 Ascorbic Acid [Vitamin C -] 500 mg PO DAILY #30 tablet 06/20/14 Tramadol HCl 50 mg PO PRN PRN 12/21/15 Alprazolam [Xanax] 2 tablet PO HS 01/22/16 Aspirin [ASA -] 81 mg PO DAILY 01/22/16 Cyanocobalamin (Vitamin B-12) 5,000 mcg PO DAILY 01/22/16 [Vitamin B12] Ibuprofen/Diphenhydramine Cit 1 each PO HS PRN 01/22/16 [Advil Pm Caplet] Memantine HCl [Namenda -] 20 mg PO HS 01/22/16 Metformin HCl [Riomet] 750 mg PO DAILY 01/22/16 Cephalexin [Keflex] 500 mg PO BID #14 capsule 04/18/19 Abnormal Lab Results 07/03/19 07/03/19 07/03/19 01:01 01:04 01:06 RBC Hgb Hct MCV MCHC Neutrophils % PT with INR 19.60 H INR 1.65 H ABG pH ABG pCO2 at Pt Temp ABG pO2 at Pt Temp ABG HCO3 ABG O2 Sat (Measured) ABG Base Excess VBG pH POC VBG pO2 VBG HCO3 VBG Base Excess Sodium Chloride Carbon Dioxide BUN Creatinine Random Glucose Lactic Acid 3.0 H* Calcium Creatine Kinase Troponin I 1.11 H* Total Protein Albumin Urine pH Urine Protein Urine Nitrite Ur Leukocyte Esterase 07/03/19 07/03/19 07/03/19 01:15 01:20 01:20 RBC 2.81 L Hgb 8.3 L Hct 27.3 L MCV 96.9 H MCHC 30.6 L Neutrophils % 85.5 H D PT with INR INR ABG pH 7.28 L ABG pCO2 at Pt Temp 33.5 L ABG pO2 at Pt Temp 172 H ABG HCO3 15.4 L ABG O2 Sat (Measured) 98.4 H ABG Base Excess -10.0 L VBG pH POC VBG pO2 VBG HCO3 VBG Base Excess Sodium 158 H Chloride 131 H Carbon Dioxide 16 L BUN 113.4 H* Creatinine 3.0 H Random Glucose 307 H Lactic Acid Calcium 8.4 L Creatine Kinase Troponin I Total Protein 6.1 L Albumin 2.6 L Urine pH Urine Protein Urine Nitrite Ur Leukocyte Esterase 07/03/19 07/03/19 07/03/19 01:20 01:28 02:14 RBC Hgb Hct MCV MCHC Neutrophils % PT with INR INR ABG pH ABG pCO2 at Pt Temp ABG pO2 at Pt Temp ABG HCO3 ABG O2 Sat (Measured) ABG Base Excess VBG pH 7.25 L POC VBG pO2 < 49 H VBG HCO3 16.5 L VBG Base Excess -9.5 L Sodium Chloride Carbon Dioxide BUN Creatinine Random Glucose Lactic Acid Calcium Creatine Kinase 685 H Troponin I Total Protein Albumin Urine pH 8.5 H D Urine Protein 1+ H Urine Nitrite Positive H Ur Leukocyte Esterase 3+ H ASSESSMENT AND PLAN: 1. Septic shock due to UTI/Hypoxic respiratory failure - CXR shows cardiomegaly , vascular congestion and blunted left costophrenic angle. Sepsis work up done and patient got about 3 liters of IV NS in the ER. Flu swab is negative. Will treat with IV Vancomycin and Zosyn dose-adjusted for GFR. Will trend lactic acid. Consult ID. Hypernatremia likely due to dehydration. Will monitor serum sodium q 4 hours while hydrating initially with 1/2 NS to avoid a rapid drop in serum sodium. EKG shows NSR with prolonged QTc and new ST depression in V5-6. Elevated troponin may be demand ischemia, but will trend to rule out ACS. Get ECHO and consult cardiology. Will continue comprehensive care for all of patient s comorbid conditions including IV Synthroid and Protonix. 2. Hypoalbuminemia - Possibly due to combined effects of proteinuria, malnutrition and inflammation associated with comorbid chronic conditions. Will ensure adequate dietary protein intake and also consult equipment detailer. 3. NIDDM For now, we will hold the home diabetes drugs and implement sliding scale insulin regimen. Provide comprehensive diabetes care with patient teaching and counseling about the importance of adherence to prescribed diabetes regimen, euglycemia, eye care and foot care. 4. JELANI/Rhabdomyolysis - Also dehydrated and has metabolic acidosis. Will get kidney sonogram, hydrate with 1/2 NS, monitor Ca/Phosphate and urine output. Consult nephrology and avoid nephrotoxic agents such as NSAIDS, aminoglycosides , contrast dyes and certain Alternative medicine products. 5. Anemia - Likely multifactorial. Will do basic anemia work up including serial stool guaiacs, reticulocyte count and iron studies. Would benefit from Procrit therapy once iron replete. 6. Hypertension - Will hold antihypertensive drugs. Restart suitable outpatient antihypertensive drugs when clinically appropriate. Revise regimen to ensure [id number] excellent BP control and parliamentary counsel patient on the injurious effects of uncontrolled hypertension. Nonpharmacologic measures to control hypertension like weight loss, salt restriction and exercise discussed. Importance of adherence to treatment regimen and attainment of normotension emphasized. 7. DVT prophylaxis - Heparin 5000u sq tid. 8. Advance directives - Full code
[2019-07-03] MEDS ORDERED: ASPIRIN 300 MG SUPP.RECT PR ONE (05:37)
[2019-07-03] MEDS ORDERED: VANCOMYCIN 1 GM in D5W (PRE-DOCKED) 1,000 MG/250 ML IVPB ONE (05:54)
[2019-07-03] MEDS ORDERED: SODIUM CHLORIDE 0.45% 1,000 ML IV SCH (06:00)
[2019-07-03] MEDS ORDERED: VANCOMYCIN 1 GRAM (PRE-DOCKED) 1,000 MG/250 ML BAG IVPB ONE (06:15)
[2019-07-03 06:34] LABS: ANISOCYTOSIS 2+; MACROCYTOSIS 0; PLATELET ESTIMATE NORMAL
[2019-07-03] MEDS ORDERED: DEXTROSE 5%-WATER - 50 ML IVPB ONE ×2 (06:53→17:37)
[2019-07-03] MEDS ORDERED: PIPERACILLIN/TAZOBACTAM 3.375 GM VIAL IVPB ONE (06:53)
[2019-07-03] MEDS: HEPARIN NA (PORCINE) 5,000 UNITS/ML 1ML VIAL SQ SCH ×3 (06:59→22:29)
[2019-07-03] MEDS: SODIUM CHLORIDE 0.45% 1,000 ML IV SCH ×2 (07:12→17:40)
[2019-07-03] MEDS: INSULIN SLIDING SCALE (NOVOLOG) 1 VIAL SQ SCH ×5 (07:24→22:28)
--- NOTE | 2019-07-03 08:26 | CONSULT ---
Consult - text type - Consultation Consultation Note: Renal consult for JELANI Coverage for Dr. Marques This is a 89 year old woman with history of dementia, hypertension, hyperlipidemia, chronic anemia, TIA, DM wh presented with acute respirtory distress and AMS and found to have pneumonia and acute kidney injury. Pt seen and examined in the ICU. On Vent with FiO2 at 90%. Has moreira with yellow urine. On IVF. Unable to obtain history due to clinical status. PMHx: as above Allergies: NKDA Family Hx: NC Social Hx: unable to obtain. ROS: unable to obtain due to clinical status Home Medications Medication Instructions Recorded Atorvastatin Ca [Lipitor] 10 mg PO HS #0 tablet 06/14/13 Levothyroxine [Synthroid -] 75 mcg PO DAILY #0 tablet 06/14/13 Metoprolol Succinate [Toprol XL -] 25 mg PO DAILY #0 tab.sr.24h 06/14/13 Multivit-Min/FA/Lycopene/Lut 1 each PO DAILY #0 tablet 06/14/13 [Centrum Silver Tablet] Quinapril HCl [Accupril -] 40 mg PO DAILY #0 tablet 06/14/13 Ascorbic Acid [Vitamin C -] 500 mg PO DAILY #30 tablet 06/20/14 Tramadol HCl 50 mg PO PRN PRN 12/21/15 Alprazolam [Xanax] 2 tablet PO HS 01/22/16 Aspirin [ASA -] 81 mg PO DAILY 01/22/16 Cyanocobalamin (Vitamin B-12) 5,000 mcg PO DAILY 01/22/16 [Vitamin B12] Ibuprofen/Diphenhydramine Cit 1 each PO HS PRN 01/22/16 [Advil Pm Caplet] Memantine HCl [Namenda -] 20 mg PO HS 01/22/16 Metformin HCl [Riomet] 750 mg PO DAILY 01/22/16 Cephalexin [Keflex] 500 mg PO BID #14 capsule 04/18/19 Vital Signs Temperature 98.1 F 07/03/19 07:49 Pulse Rate 86 07/03/19 07:49 Respiratory Rate 20 07/03/19 08:06 Blood Pressure 132/66 07/03/19 07:49 O2 Sat by Pulse Oximetry (%) 100 07/03/19 06:00 Intake & Output 06/30/19 07/01/19 07/02/19 07/03/19 23:59 23:59 23:59 23:59 Intake Total 3250 Output Total 250 Balance 3000 Weight 53.5 kg NAD intubated, not responsive neck supple no JVD RRR Dec BS, no rales or wheeze soft NT/ND no LE edema, clubbing or cyanosis no bladder distension moreira in place CBC, BMP 07/03/19 01:20 07/03/19 01:20 Current Medications Chlorhexidine Gluconate (Hibiclens For Decolonization -) 1 applic TP HS SILVINO Heparin Sodium (Porcine) (Heparin -) 5,000 unit SQ TID SILVINO Last Admin: 07/03/19 06:59 Dose: 5,000 unit Fentanyl 500 mcg/ Dextrose 100 mls @ 5 mls/hr IVPB TITR SILVINO Last Admin: 07/03/19 04:58 Dose: 25 mcg/hr, 5 mls/hr Sodium Chloride (1/2 Normal Saline) 1,000 mls @ 125 mls/hr IV ASDIR SILVINO Last Admin: 07/03/19 07:12 Dose: 125 mls/hr Piperacillin Sod/Tazobactam (Sod 2.25 gm/ Dextrose) 50 mls @ 100 mls/hr IVPB Q8H-IV SILVINO; Protocol Piperacillin Sod/Tazobactam (Sod 2.25 gm/ Dextrose) 50 mls @ 100 mls/hr IVPB Q8H-IV SILVINO Stop: 07/04/19 02:29 Insulin Aspart (Novolog Vial Sliding Scale -) 1 vial SQ Q4H [facility]; Protocol Last Admin: 07/03/19 07:24 Dose: 8 units Mupirocin (Bactroban Ointment (For Decolonization) -) 1 applic NS BID [facility] Stop: 07/08/19 09:59 89 year old woman with history of dementia, hypertension, hyperlipidemia, chronic anemia, TIA, DM wh presented with acute respirtory distress and AMS and found to have pneumonia and acute kidney injury. 1. Acute kidney injury secondary to renal hypoprofusion in setting 2. Metabolic acidosis from renal failure +/- lactic acidosis 3. Hypernatremia 4. Sepsis from PNA 5. Respiratory failure 6. Anemia Continue aggressive IVF infusion with 1/2 NS. Can give NS if MAP falls < 70. Trend BMP Q8h. ph > 7.2, no indication for bicarbonate at this time. Insert NGT for free water hydration (300cc Q8h) Continue vent support Continue empiric antibiotics Trend H/H, transfuse as per ICU protcol Thank you Nick Humphrey DO
--- NOTE | 2019-07-03 09:38 | PN ---
Teaching Attending Note Name of Resident: Adelfo Paz ATTENDING PHYSICIAN STATEMENT I saw and evaluated the patient. I reviewed the resident's note and discussed the case with the resident. I agree with the resident's findings and plan as documented. SUBJECTIVE: Patient seen and examined in the ICU. Intubated and sedated. AC Mode of vent, 90% FiO2. No pressors. Intake & Output 06/30/19 07/01/19 07/02/19 07/03/19 23:59 23:59 23:59 23:59 Intake Total 3250 Output Total 250 Balance 3000 Weight 117 lb 15.157 oz Last Vital Signs Temp Pulse Resp BP Pulse Ox 98.1 F 86 20 132/66 100 07/03/19 07:49 07/03/19 07:49 07/03/19 08:06 07/03/19 07:49 07/03/19 06:00 Active Medications Chlorhexidine Gluconate (Hibiclens For Decolonization -) 1 applic TP HS SILVINO Heparin Sodium (Porcine) (Heparin -) 5,000 unit SQ TID [facility] Last Admin: 07/03/19 06:59 Dose: 5,000 unit Fentanyl 500 mcg/ Dextrose 100 mls @ 5 mls/hr IVPB TITR [facility] Last Admin: 07/03/19 04:58 Dose: 25 mcg/hr, 5 mls/hr Sodium Chloride (1/2 Normal Saline) 1,000 mls @ 125 mls/hr IV ASDIR [facility] Last Admin: 07/03/19 07:12 Dose: 125 mls/hr Piperacillin Sod/Tazobactam (Sod 2.25 gm/ Dextrose) 50 mls @ 100 mls/hr IVPB Q8H-IV SILVINO; Protocol Piperacillin Sod/Tazobactam (Sod 2.25 gm/ Dextrose) 50 mls @ 100 mls/hr IVPB Q8H-IV [facility] Stop: 07/04/19 02:29 Insulin Aspart (Novolog Vial Sliding Scale -) 1 vial SQ Q4H [facility]; Protocol Last Admin: 07/03/19 07:24 Dose: 8 units Mupirocin (Bactroban Ointment (For Decolonization) -) 1 applic NS BID [facility] Stop: 07/08/19 09:59 GENERAL: intubated, sedated. HEAD: Normal with no signs of trauma. EYES: Pupils equal, round and reactive to light. EARS, NOSE, THROAT: dry mucous membranes. NECK: trachea midline no JVD. LUNGS: Vented, diminished at the bases HEART: Regular rate and rhythm, normal S1 and S2 without murmur, rub or gallop. ABDOMEN: Soft, nontender, not distended, normoactive bowel sounds.. UPPER EXTREMITIES: 2+ pulses, warm, well-perfused. No cyanosis. No clubbing. Cap refill <2 seconds. No peripheral edema.5cm skin tear on left tricep LOWER EXTREMITIES: 2+ pulses, warm, well-perfused. trace edema NEUROLOGICAL: sedated. SKIN: Warm, dry, normal turgor, no rashes or lesions noted. 5cm skin tear on left tricep Laboratory Results - last 24 hr 07/03/19 07/03/19 07/03/19 01:01 01:02 01:04 WBC RBC Hgb Hct MCV MCH MCHC RDW Plt Count MPV Absolute Neuts (auto) Neutrophils % Lymphocytes % Monocytes % Eosinophils % Basophils % Nucleated RBC % PT with INR 19.60 H INR 1.65 H PTT (Actin FS) 34.8 Anticoagulation Therapy Puncture Site ABG pH ABG pCO2 at Pt Temp ABG pO2 at Pt Temp ABG HCO3 ABG O2 Sat (Measured) ABG O2 Content ABG Base Excess Teto Test VBG pH POC VBG pCO2 POC VBG pO2 VBG HCO3 VBG O2 Sat (Brando) VBG Base Excess Carboxyhemoglobin Methemoglobin O2 Delivery Device Oxygen Flow Rate Vent Mode Vent Rate Mechanical Rate Pressure Support Vent Sodium Potassium Chloride Carbon Dioxide Anion Gap BUN Creatinine Est GFR (CKD-EPI)AfAm Est GFR (CKD-EPI)NonAf POC Glucometer 308 Random Glucose Lactic Acid 3.0 H* Calcium Total Bilirubin AST ALT Alkaline Phosphatase Creatine Kinase Creatine Kinase Index CK-MB (CK-2) Troponin I Total Protein Albumin Urine Color Urine Appearance Urine pH Ur Specific [place] Urine Protein Urine Glucose (UA) Urine Ketones Urine Blood Urine Nitrite Urine Bilirubin Urine Urobilinogen Ur Leukocyte Esterase Urine WBC (Auto) Urine RBC (Auto) Urine Casts (Auto) U Epithel Cells (Auto) Urine Bacteria (Auto) Urine Yeast (Auto) Influenza A (Rapid) Influenza B (Rapid) 07/03/19 07/03/19 07/03/19 01:06 01:15 01:20 WBC 5.3 RBC 2.81 L Hgb 8.3 L Hct 27.3 L MCV 96.9 H MCH 29.6 MCHC 30.6 L RDW 15.0 D Plt Count 184 D MPV 9.1 D Absolute Neuts (auto) 4.6 Neutrophils % 85.5 H D Lymphocytes % 8.2 D Monocytes % 6.0 Eosinophils % 0.1 D Basophils % 0.2 Nucleated RBC % 0 PT with INR INR PTT (Actin FS) Anticoagulation Therapy No Result Required. Puncture Site Right brachial ABG pH 7.28 L ABG pCO2 at Pt Temp 33.5 L ABG pO2 at Pt Temp 172 H ABG HCO3 15.4 L ABG O2 Sat (Measured) 98.4 H ABG O2 Content 19.3 ABG Base Excess -10.0 L Teto Test Positive VBG pH POC VBG pCO2 POC VBG pO2 VBG HCO3 VBG O2 Sat (Brando) VBG Base Excess Carboxyhemoglobin 0.5 Methemoglobin < 1.0 O2 Delivery Device Vent Oxygen Flow Rate Yes Vent Mode No Result Required. Vent Rate 14 Mechanical Rate No Result Required. Pressure Support Vent No Result Required. Sodium Potassium Chloride Carbon Dioxide Anion Gap BUN Creatinine Est GFR (CKD-EPI)AfAm Est GFR (CKD-EPI)NonAf POC Glucometer Random Glucose Lactic Acid Calcium Total Bilirubin AST ALT Alkaline Phosphatase Creatine Kinase Creatine Kinase Index CK-MB (CK-2) Troponin I 1.11 H* Total Protein Albumin Urine Color Urine Appearance Urine pH Ur Specific [place] Urine Protein Urine Glucose (UA) Urine Ketones Urine Blood Urine Nitrite Urine Bilirubin Urine Urobilinogen Ur Leukocyte Esterase Urine WBC (Auto) Urine RBC (Auto) Urine Casts (Auto) U Epithel Cells (Auto) Urine Bacteria (Auto) Urine Yeast (Auto) Influenza A (Rapid) Influenza B (Rapid) 07/03/19 07/03/19 07/03/19 01:20 01:20 01:28 WBC RBC Hgb Hct MCV MCH MCHC RDW Plt Count MPV Absolute Neuts (auto) Neutrophils % Lymphocytes % Monocytes % Eosinophils % Basophils % Nucleated RBC % PT with INR INR PTT (Actin FS) Anticoagulation Therapy Puncture Site ABG pH ABG pCO2 at Pt Temp ABG pO2 at Pt Temp ABG HCO3 ABG O2 Sat (Measured) ABG O2 Content ABG Base Excess Teto Test VBG pH 7.25 L POC VBG pCO2 38.7 POC VBG pO2 < 49 H VBG HCO3 16.5 L VBG O2 Sat (Brando) 73.3 VBG Base Excess -9.5 L Carboxyhemoglobin Methemoglobin O2 Delivery Device Oxygen Flow Rate Vent Mode Vent Rate Mechanical Rate Pressure Support Vent Sodium 158 H Potassium 4.6 Chloride 131 H Carbon Dioxide 16 L Anion Gap 11 BUN 113.4 H* Creatinine 3.0 H Est GFR (CKD-EPI)AfAm 15.33 Est GFR (CKD-EPI)NonAf 13.22 POC Glucometer Random Glucose 307 H Lactic Acid Calcium 8.4 L Total Bilirubin 0.3 AST 32 ALT 15 Alkaline Phosphatase 70 Creatine Kinase 685 H Creatine Kinase Index 0.3 CK-MB (CK-2) 2.4 2.6 Troponin I Total Protein 6.1 L Albumin 2.6 L Urine Color Urine Appearance Urine pH Ur Specific [place] Urine Protein Urine Glucose (UA) Urine Ketones Urine Blood Urine Nitrite Urine Bilirubin Urine Urobilinogen Ur Leukocyte Esterase Urine WBC (Auto) Urine RBC (Auto) Urine Casts (Auto) U Epithel Cells (Auto) Urine Bacteria (Auto) Urine Yeast (Auto) Influenza A (Rapid) Influenza B (Rapid) 07/03/19 07/03/19 02:14 02:15 WBC RBC Hgb Hct MCV MCH MCHC RDW Plt Count MPV Absolute Neuts (auto) Neutrophils % Lymphocytes % Monocytes % Eosinophils % Basophils % Nucleated RBC % PT with INR INR PTT (Actin FS) Anticoagulation Therapy Puncture Site ABG pH ABG pCO2 at Pt Temp ABG pO2 at Pt Temp ABG HCO3 ABG O2 Sat (Measured) ABG O2 Content ABG Base Excess Teto Test VBG pH POC VBG pCO2 POC VBG pO2 VBG HCO3 VBG O2 Sat (Brando) VBG Base Excess Carboxyhemoglobin Methemoglobin O2 Delivery Device Oxygen Flow Rate Vent Mode Vent Rate Mechanical Rate Pressure Support Vent Sodium Potassium Chloride Carbon Dioxide Anion Gap BUN Creatinine Est GFR (CKD-EPI)AfAm Est GFR (CKD-EPI)NonAf POC Glucometer Random Glucose Lactic Acid Calcium Total Bilirubin AST ALT Alkaline Phosphatase Creatine Kinase Creatine Kinase Index CK-MB (CK-2) Troponin I Total Protein Albumin Urine Color Other Urine Appearance Turbid Urine pH 8.5 H D Ur Specific [place] 1.017 Urine Protein 1+ H Urine Glucose (UA) Negative Urine Ketones Negative Urine Blood Negative Urine Nitrite Positive H Urine Bilirubin Negative Urine Urobilinogen 0.2 Ur Leukocyte Esterase 3+ H Urine WBC (Auto) 36 Urine RBC (Auto) 1 Urine Casts (Auto) 16 U Epithel Cells (Auto) 1.0 Urine Bacteria (Auto) 165.1 Urine Yeast (Auto) None seen Influenza A (Rapid) Negative Influenza B (Rapid) Negative ASSESSMENT/PLAN: Acute Respiratory Failure due to suspected LLL CAP Sepsis UTI History of TIA Anemia Dementia HTN NIDDM HLD Elevated Troponin JELANI Hypernatremia ABX per ID Jackson-culture IVF Strict I & O VTE prophylaxis Renal evaluation Cardiology evaluation Wean FiO2 Requires ICU monitoring Dr Paula Critical care time spent in reviewing chart, evaluating patient and formulating plan - 36 minutes.
[2019-07-03] MEDS ORDERED: PIPERACILLIN/TAZOB 2.25 GM 2.25 GM in DEXTROSE 5%-WATER - 50 ML IVPB SCH (10:00)
--- NOTE | 2019-07-03 10:11 | PN ---
Progress Note (short form) - Note Progress Note: ID CONSULT DICTATED RESPIRATORY FAILURE ? LLL PNEUMONIA SEPSIS/ SEPTIC SHOCK RENAL FAILURE LACTIC ACIDOSIS UNCONTROLLED DM HYPERNATREMIA AWAIT SEPSIS W/U VENTILATORY SUPPORT AGREE WITH EMPIRIC ZOSYN/ ZITHROMAX + STAT DOSE VANCOMYCIN
--- NOTE | 2019-07-03 10:59 | CONS ---
INFECTIOUS DISEASE CONSULTATION DATE OF CONSULTATION: DATE OF DICTATION: 07/03/2018 HISTORY: The patient is an 89-year-old female who is evaluated for septic shock. History was obtained from the chart as she cannot give a history as she is presently intubated. According to the notes, she was at home on July 02, 2018, when she was found unresponsive by family. She apparently had no increasing shortness of breath. She was taken by EMS to the emergency room. Her course was notable for hypoxia, tachypnea, and hypotension. She required intubation. She is presently intubated in the intensive care unit. Her course has been complicated by hypotension requiring fluid resuscitation. She is not currently on pressors. Chest x-ray shows probable left lower lobe infiltrate. She was empirically treated with Zosyn, Zithromax, and vancomycin. Her course has been further complicated by acute renal failure, lactic acidosis, hypernatremia, and uncontrolled diabetes mellitus. According to the notes, she has been in contact with persons with respiratory tract illnesses including possible influenza. She had not received an influenza vaccine. She has had no recent hospital admissions. The patient was treated for pansensitive E. coli urinary tract infection in March 2019. PAST MEDICAL HISTORY: Positive for dementia, chronic anemia, chondrocalcinosis, hypertension, hyperlipidemia, hypothyroidism, diabetes mellitus. ALLERGIES: No known drug allergies. MEDICATIONS: Lipitor, Synthroid, metoprolol, Accupril, Tramadol, Xanax, aspirin, Namenda. SOCIAL HISTORY: She is a nonsmoker, nondrinker. She lives at home. SYSTEMS REVIEW: Neurologic: Positive for dementia. Cardiac: Negative chest pain or palpitations. Respiratory: As per HPI. Gastrointestinal: Negative vomiting or diarrhea. Genitourinary: Positive for recent urinary tract infection. LABORATORY DATA: White count 5.3 with left shift, hematocrit 27.3, platelets 183, creatinine 3.0, glucose 307. Liver enzymes normal. Sodium 158. Urinalysis 36 white cells. Chest x-ray: Increased markings left base. Influenza swab negative. PHYSICAL EXAMINATION: General: She is sedated on the ventilator. Vital Signs: Temperature 98.1, maximum temperature 103.3, blood pressure 132/66, pulse 86 regular, respirations 20 per minute. HEENT: Sclerae anicteric. Patient is orally intubated. Heart: Sounds S1, S2. Lungs: Air entry bilaterally. Abdomen: Obese, soft, nontender. Extremities: 1+ edema. Erythema present on the sacrum. No infected decubitus ulcer noted. Genitourinary: [place] catheter is in place. IMPRESSION: 1. Acute respiratory failure. 2. Probable left lower lobe pneumonia. 3. Sepsis, septic shock. 4. Renal failure. 5. Lactic acid. 6. Uncontrolled diabetes mellitus. 7. Hypernatremia. PLAN: Await sepsis workup. Agree with empiric treatment with Zithromax and Zosyn adjusted for renal failure. STAT dose vancomycin. Check random vancomycin level. Suction sputum culture and sensitivity. Urine Legionella antigen. Further recommendations pending cultures. Continue ventilatory support and ICU monitoring. Critical care time spent 35 minutes. Thank you for the kind referral. JOSEPH LARIOS M.D. [id number]
--- NOTE | 2019-07-03 11:02 | PN ---
Physical Exam: SUBJECTIVE: Patient seen and examined in the morning. Patient was accepted to ICU from ED overnight. Daughter at bedside states that patient is baseline nonverbal. Was seen to have respiratory distress at home and called EMS, at which point patient was intubated in the field. Patient is sedated and intubated. OBJECTIVE: Vital Signs Period Temp Pulse Resp BP Sys/Tolentino Pulse Ox Last 24 Hr 98.1 F-103.3 F 80-116 14-20 64-142/48-66 92-100 GENERAL: The patient is sedated and intubated. HEAD: Normal with no signs of trauma. EYES: PERRLA ENT: ET tube in place. NECK: Trachea midline, full range of motion, supple. LUNGS: Breath sounds equal, clear to auscultation bilaterally, ventilator sounds appreciated, no wheezes. HEART: Regular rate and rhythm, S1, S2 3/6 murmur ABDOMEN: Soft, nontender, nondistended, normoactive bowel sounds, no guarding, no rebound, no hepatosplenomegaly, no masses. EXTREMITIES: 2+ pulses, warm, well-perfused, no edema. NEUROLOGICAL:Patient is sedated, unable to assess. SKIN: Warm, dry, normal turgor, no rashes or lesions noted. Left lower arm skin tear from transport by EMS. Laboratory Results - last 24 hr 07/03/19 07/03/19 07/03/19 01:01 01:02 01:04 WBC RBC Hgb Hct MCV MCH MCHC RDW Plt Count MPV Absolute Neuts (auto) Neutrophils % Neutrophils % (Manual) Band Neutrophils % Lymphocytes % Lymphocytes % (Manual) Monocytes % Monocytes % (Manual) Eosinophils % Eosinophils % (Manual) Basophils % Basophils % (Manual) Myelocytes % (Man) Promyelocytes % (Man) Blast Cells % (Manual) Nucleated RBC % Metamyelocytes Hypochromia Platelet Estimate Polychromasia Poikilocytosis Anisocytosis Microcytosis Macrocytosis PT with INR 19.60 H INR 1.65 H PTT (Actin FS) 34.8 Anticoagulation Therapy Puncture Site ABG pH ABG pCO2 at Pt Temp ABG pO2 at Pt Temp ABG HCO3 ABG O2 Sat (Measured) ABG O2 Content ABG Base Excess Teto Test VBG pH POC VBG pCO2 POC VBG pO2 VBG HCO3 VBG O2 Sat (Brando) VBG Base Excess Carboxyhemoglobin Methemoglobin O2 Delivery Device Oxygen Flow Rate Vent Mode Vent Rate Mechanical Rate Pressure Support Vent Sodium Potassium Chloride Carbon Dioxide Anion Gap BUN Creatinine Est GFR (CKD-EPI)AfAm Est GFR (CKD-EPI)NonAf POC Glucometer 308 Random Glucose Lactic Acid 3.0 H* Calcium Total Bilirubin AST ALT Alkaline Phosphatase Creatine Kinase Creatine Kinase Index CK-MB (CK-2) Troponin I Total Protein Albumin Urine Color Urine Appearance Urine pH Ur Specific [place] Urine Protein Urine Glucose (UA) Urine Ketones Urine Blood Urine Nitrite Urine Bilirubin Urine Urobilinogen Ur Leukocyte Esterase Urine WBC (Auto) Urine RBC (Auto) Urine Casts (Auto) U Epithel Cells (Auto) Urine Bacteria (Auto) Urine Yeast (Auto) Influenza A (Rapid) Influenza B (Rapid) Blood Type Antibody Screen 07/03/19 07/03/19 07/03/19 01:06 01:15 01:20 WBC 5.3 RBC 2.81 L Hgb 8.3 L Hct 27.3 L MCV 96.9 H MCH 29.6 MCHC 30.6 L RDW 15.0 D Plt Count 184 D MPV 9.1 D Absolute Neuts (auto) 4.6 Neutrophils % 85.5 H D Neutrophils % (Manual) 58.0 Band Neutrophils % 29.0 Lymphocytes % 8.2 D Lymphocytes % (Manual) 5.0 L Monocytes % 6.0 Monocytes % (Manual) 1 L Eosinophils % 0.1 D Eosinophils % (Manual) 0.0 Basophils % 0.2 Basophils % (Manual) 0.0 Myelocytes % (Man) 6 H Promyelocytes % (Man) 0 Blast Cells % (Manual) 0 Nucleated RBC % 0 Metamyelocytes 1 Hypochromia 0 Platelet Estimate Normal Polychromasia 0 Poikilocytosis 2+ Anisocytosis 2+ Microcytosis 3+ Macrocytosis 0 PT with INR INR PTT (Actin FS) Anticoagulation Therapy No Result Required. Puncture Site Right brachial ABG pH 7.28 L ABG pCO2 at Pt Temp 33.5 L ABG pO2 at Pt Temp 172 H ABG HCO3 15.4 L ABG O2 Sat (Measured) 98.4 H ABG O2 Content 19.3 ABG Base Excess -10.0 L Teto Test Positive VBG pH POC VBG pCO2 POC VBG pO2 VBG HCO3 VBG O2 Sat (Brando) VBG Base Excess Carboxyhemoglobin 0.5 Methemoglobin < 1.0 O2 Delivery Device Vent Oxygen Flow Rate Yes Vent Mode No Result Required. Vent Rate 14 Mechanical Rate No Result Required. Pressure Support Vent No Result Required. Sodium Potassium Chloride Carbon Dioxide Anion Gap BUN Creatinine Est GFR (CKD-EPI)AfAm Est GFR (CKD-EPI)NonAf POC Glucometer Random Glucose Lactic Acid Calcium Total Bilirubin AST ALT Alkaline Phosphatase Creatine Kinase Creatine Kinase Index CK-MB (CK-2) Troponin I 1.11 H* Total Protein Albumin Urine Color Urine Appearance Urine pH Ur Specific [place] Urine Protein Urine Glucose (UA) Urine Ketones Urine Blood Urine Nitrite Urine Bilirubin Urine Urobilinogen Ur Leukocyte Esterase Urine WBC (Auto) Urine RBC (Auto) Urine Casts (Auto) U Epithel Cells (Auto) Urine Bacteria (Auto) Urine Yeast (Auto) Influenza A (Rapid) Influenza B (Rapid) Blood Type Antibody Screen 07/03/19 07/03/19 07/03/19 01:20 01:20 01:28 WBC RBC Hgb Hct MCV MCH MCHC RDW Plt Count MPV Absolute Neuts (auto) Neutrophils % Neutrophils % (Manual) Band Neutrophils % Lymphocytes % Lymphocytes % (Manual) Monocytes % Monocytes % (Manual) Eosinophils % Eosinophils % (Manual) Basophils % Basophils % (Manual) Myelocytes % (Man) Promyelocytes % (Man) Blast Cells % (Manual) Nucleated RBC % Metamyelocytes Hypochromia Platelet Estimate Polychromasia Poikilocytosis Anisocytosis Microcytosis Macrocytosis PT with INR INR PTT (Actin FS) Anticoagulation Therapy Puncture Site ABG pH ABG pCO2 at Pt Temp ABG pO2 at Pt Temp ABG HCO3 ABG O2 Sat (Measured) ABG O2 Content ABG Base Excess Teto Test VBG pH 7.25 L POC VBG pCO2 38.7 POC VBG pO2 < 49 H VBG HCO3 16.5 L VBG O2 Sat (Brando) 73.3 VBG Base Excess -9.5 L Carboxyhemoglobin Methemoglobin O2 Delivery Device Oxygen Flow Rate Vent Mode Vent Rate Mechanical Rate Pressure Support Vent Sodium 158 H Potassium 4.6 Chloride 131 H Carbon Dioxide 16 L Anion Gap 11 BUN 113.4 H* Creatinine 3.0 H Est GFR (CKD-EPI)AfAm 15.33 Est GFR (CKD-EPI)NonAf 13.22 POC Glucometer Random Glucose 307 H Lactic Acid Calcium 8.4 L Total Bilirubin 0.3 AST 32 ALT 15 Alkaline Phosphatase 70 Creatine Kinase 685 H Creatine Kinase Index 0.3 CK-MB (CK-2) 2.4 2.6 Troponin I Total Protein 6.1 L Albumin 2.6 L Urine Color Urine Appearance Urine pH Ur Specific [place] Urine Protein Urine Glucose (UA) Urine Ketones Urine Blood Urine Nitrite Urine Bilirubin Urine Urobilinogen Ur Leukocyte Esterase Urine WBC (Auto) Urine RBC (Auto) Urine Casts (Auto) U Epithel Cells (Auto) Urine Bacteria (Auto) Urine Yeast (Auto) Influenza A (Rapid) Influenza B (Rapid) Blood Type Antibody Screen 07/03/19 07/03/19 07/03/19 02:14 02:15 04:44 WBC RBC Hgb Hct MCV MCH MCHC RDW Plt Count MPV Absolute Neuts (auto) Neutrophils % Neutrophils % (Manual) Band Neutrophils % Lymphocytes % Lymphocytes % (Manual) Monocytes % Monocytes % (Manual) Eosinophils % Eosinophils % (Manual) Basophils % Basophils % (Manual) Myelocytes % (Man) Promyelocytes % (Man) Blast Cells % (Manual) Nucleated RBC % Metamyelocytes Hypochromia Platelet Estimate Polychromasia Poikilocytosis Anisocytosis Microcytosis Macrocytosis PT with INR INR PTT (Actin FS) Anticoagulation Therapy Puncture Site ABG pH ABG pCO2 at Pt Temp ABG pO2 at Pt Temp ABG HCO3 ABG O2 Sat (Measured) ABG O2 Content ABG Base Excess Teto Test VBG pH POC VBG pCO2 POC VBG pO2 VBG HCO3 VBG O2 Sat (Brando) VBG Base Excess Carboxyhemoglobin Methemoglobin O2 Delivery Device Oxygen Flow Rate Vent Mode Vent Rate Mechanical Rate Pressure Support Vent Sodium Potassium Chloride Carbon Dioxide Anion Gap BUN Creatinine Est GFR (CKD-EPI)AfAm Est GFR (CKD-EPI)NonAf POC Glucometer Random Glucose Lactic Acid 1.4 Calcium Total Bilirubin AST ALT Alkaline Phosphatase Creatine Kinase Creatine Kinase Index CK-MB (CK-2) Troponin I Total Protein Albumin Urine Color Other Urine Appearance Turbid Urine pH 8.5 H D Ur Specific [place] 1.017 Urine Protein 1+ H Urine Glucose (UA) Negative Urine Ketones Negative Urine Blood Negative Urine Nitrite Positive H Urine Bilirubin Negative Urine Urobilinogen 0.2 Ur Leukocyte Esterase 3+ H Urine WBC (Auto) 36 Urine RBC (Auto) 1 Urine Casts (Auto) 16 U Epithel Cells (Auto) 1.0 Urine Bacteria (Auto) 165.1 Urine Yeast (Auto) None seen Influenza A (Rapid) Negative Influenza B (Rapid) Negative Blood Type Antibody Screen 07/03/19 07/03/19 07/03/19 04:54 04:54 07:19 WBC RBC Hgb Hct MCV MCH MCHC RDW Plt Count MPV Absolute Neuts (auto) Neutrophils % Neutrophils % (Manual) Band Neutrophils % Lymphocytes % Lymphocytes % (Manual) Monocytes % Monocytes % (Manual) Eosinophils % Eosinophils % (Manual) Basophils % Basophils % (Manual) Myelocytes % (Man) Promyelocytes % (Man) Blast Cells % (Manual) Nucleated RBC % Metamyelocytes Hypochromia Platelet Estimate Polychromasia Poikilocytosis Anisocytosis Microcytosis Macrocytosis PT with INR INR PTT (Actin FS) Anticoagulation Therapy Puncture Site ABG pH ABG pCO2 at Pt Temp ABG pO2 at Pt Temp ABG HCO3 ABG O2 Sat (Measured) ABG O2 Content ABG Base Excess Teto Test VBG pH POC VBG pCO2 POC VBG pO2 VBG HCO3 VBG O2 Sat (Brando) VBG Base Excess Carboxyhemoglobin Methemoglobin O2 Delivery Device Oxygen Flow Rate Vent Mode Vent Rate Mechanical Rate Pressure Support Vent Sodium Potassium Chloride Carbon Dioxide Anion Gap BUN Creatinine Est GFR (CKD-EPI)AfAm Est GFR (CKD-EPI)NonAf POC Glucometer 343 Random Glucose Lactic Acid Calcium Total Bilirubin AST ALT Alkaline Phosphatase Creatine Kinase 803 H Creatine Kinase Index 0.4 CK-MB (CK-2) 3.5 Troponin I 1.10 H* Total Protein Albumin Urine Color Urine Appearance Urine pH Ur Specific [place] Urine Protein Urine Glucose (UA) Urine Ketones Urine Blood Urine Nitrite Urine Bilirubin Urine Urobilinogen Ur Leukocyte Esterase Urine WBC (Auto) Urine RBC (Auto) Urine Casts (Auto) U Epithel Cells (Auto) Urine Bacteria (Auto) Urine Yeast (Auto) Influenza A (Rapid) Influenza B (Rapid) Blood Type A POSITIVE Antibody Screen Negative Active Medications Generic Name Dose Route Start Last Admin Trade Name Freq PRN Reason Stop Dose Admin Chlorhexidine Gluconate 1 applic 07/03/19 22:00 Hibiclens For Decolonization - TP HS SILVINO Heparin Sodium (Porcine) 5,000 unit 07/03/19 06:00 07/03/19 06:59 Heparin - SQ 5,000 unit TID SILVINO Administration Fentanyl 500 mcg/ Dextrose 100 mls @ 5 mls/hr 07/03/19 03:30 07/03/19 04:58 IVPB 25 mcg/hr TITR SILVINO 5 mls/hr Administration 25 MCG/HR Sodium Chloride 1,000 mls @ 125 mls/hr 07/03/19 06:17 07/03/19 07:12 1/ Normal Saline IV 125 mls/hr ASDIR SILVINO Administration Azithromycin 500 mg in 250 mls @ 250 mls/hr 07/04/19 10:00 Zithromax 500mg Ivpb (Pre-Docked) IVPB DAILY SILVINO Piperacillin Sod/Tazobactam 50 mls @ 100 mls/hr 07/03/19 18:00 Sod 2.25 gm/ Dextrose IVPB Q8H-IV SILVINO Protocol Insulin Aspart 1 vial 07/03/19 06:15 07/03/19 07:24 Novolog Vial Sliding Scale - SQ 8 units Q4H SILVINO Administration Protocol Mupirocin 1 applic 07/03/19 10:00 Bactroban Ointment (For Decolonization) - NS 07/08/19 09:59 BID SILVINO ASSESSMENT/PLAN: 89 F PMH of TIA, Anemia, dementia, HTN, NIDDM, HLD who was brought to the ICU for respiratory failure and is septic, likely source UTI. Neuro -Patient is intubated and sedated on Fentanyl 25 mcg/hr -History of dementia, is baseline non-verbal. Cardiovascular -Patient had elevated troponin of 1.11 and repeat of 1.10. -EKG shows lateral t-wave inversions. -Patient had QTC of 505 on ekg. 2 gram of Mag was given -Was hypotensive on admission. Currently on 07/01 NS @125ml/hr, has received bolus of 1.5L NS -EKG repeat showed -Repeat troponin was -Cardiology consulted, appreciate recs Pulm -Acute hypoxic respiratory failure -On Ventilator: A/C Volume Control mode. Vt 450, RR 14, PEEP 5, FiO2 50% -Chest x-ray shows clear lung upper lobes, possible infiltrate in the left lower lobe. -Repeat Chest X-Ray ID -Septic -Lactic acid 3.0 initially, repeat 1.4 -F/U Culture -Azithromycin and zoysn and vancomycin -ID Consulted, appreciate recs Renal/ -Patient has history of UTI, was treated for UTI 2 weeks ago by PCP Rosch -UA shows + leukocyte esterase, nitrites, WBC and bacteria -Azithromycin, zoysn, and vancomycin given -[place] in place -BUN 113/Creatinine 3 -1/2 NS @ 125. Can switch to NS if MAP < 70 -18 [place] NGT placed and aspirated to check for placement. -Suitable for free water hydration- 300cc Q8H -Nephrology consulted, appreciate recs GI -OGT in place. -Stable F: 1/2 NS @ 125 ml/hr. Free water 300 cc Q8H E: Monitor Na N: NPO DVT: Heparin 5000 unit SQ Dispo: ICU monitoring. Visit type - Emergency Visit Emergency Visit: Yes ED Registration Date: 07/03/19 Care time: The patient presented to the Emergency Department on the above date and was hospitalized for further evaluation of their emergent condition. - New Patient This patient is new to me today: Yes Date on this admission: 07/03/19 - Critical Care Critical Care patient: Yes Total Critical Care Time (in minutes): 45 Critical Care Statement: The care of this patient involved high complexity decision making to prevent further life threatening deterioration of the patient 's condition and/or to evaluate & treat vital organ system(s) failure or risk of failure. ATTENDING PHYSICIAN STATEMENT I saw and evaluated the patient. I reviewed the resident's note and discussed the case with the resident. I agree with the resident's findings and plan as documented. SUBJECTIVE: OBJECTIVE: ASSESSMENT AND PLAN:
--- NOTE | 2019-07-03 11:36 | CON.CARD ---
Consult Consult Specialty:: Cardiology Referred by:: Hospitalist Reason for Consultation:: Cardiac evaluation - History of Present Illness Chief Complaint: Respiratory failure History of Present Illness: Patient is an 89 year old female with underlying dementia, HTN, hypercholesterolemia, hypothyroidism, anemia, cerebrovascular disease and NIDDM who presented to [facility] with respiratory distress and altered mental status. She was found by her son to have labored breathing and was found to be hypoxic when EMS arrived. She was sedated and intubated and currently admitted to ICU. She has been noted to have had runny and stuffy nose with some discharge past week. She did not receive flu shot this year. Troponin was elevated suggestive of demand ischemia with ECG finding of ST-T abnormality in lateral leads suggestive of NSTEMI. Urinanalysis reveals probable UTI and elevated WBC suggests sepsis. She was started on empiric antibiotics. - History Source History Provided By: Medical Record Limitations to Obtaining History: Intubated - Past Medical History [employer]: Yes: Dementia, TIA Cardio/Vascular: Yes: HTN, Hyperlipdemia Pulmonary: Yes: Bronchitis, Sleep Apnea, Other (Bronchiectasis) Gastrointestinal: Yes: GERD, Other (rectal prolapse post operative suspension procedure) Hepatobiliary: Yes: Cholelithiasis Psych: Yes: Anxiety, Schizophrenia Rheumatology: Yes: Other (chondrocalcinosis) Endocrine: Yes: Diabetes Mellitus - Alcohol/Substance Use Hx Alcohol Use: No - Smoking History Smoking history: Never smoked Have you smoked in the past 12 months: No Aproximately how many cigarettes per day: 0 - Social History Usual Living Arrangement: Alone ADL: Family Assistance History of Recent Travel: No Home Medications - Allergies Allergies/Adverse Reactions: Allergies Allergy/AdvReac Type Severity Reaction Status Date / Time No Known Allergies Allergy Verified 04/18/19 14:54 - Home Medications Home Medications: Ambulatory Orders Atorvastatin Ca [Lipitor] 10 mg PO HS #0 tablet 06/14/13 Levothyroxine [Synthroid -] 75 mcg PO DAILY #0 tablet 06/14/13 Metoprolol Succinate [Toprol XL -] 25 mg PO DAILY #0 tab.sr.24h 06/14/13 Multivit-Min/FA/Lycopene/Lut [Centrum Silver Tablet] 1 each PO DAILY #0 tablet 06/14/13 Quinapril HCl [Accupril -] 40 mg PO DAILY #0 tablet 06/14/13 Ascorbic Acid [Vitamin C -] 500 mg PO DAILY #30 tablet 06/20/14 Tramadol HCl 50 mg PO PRN PRN 12/21/15 Alprazolam [Xanax] 2 tablet PO HS 01/22/16 Aspirin [ASA -] 81 mg PO DAILY 01/22/16 Cyanocobalamin (Vitamin B-12) [Vitamin B12] 5,000 mcg PO DAILY 01/22/16 Ibuprofen/Diphenhydramine Cit [Advil Pm Caplet] 1 each PO HS PRN 01/22/16 Memantine HCl [Namenda -] 20 mg PO HS 01/22/16 Metformin HCl [Riomet] 750 mg PO DAILY 01/22/16 Cephalexin [Keflex] 500 mg PO BID #14 capsule 04/18/19 Family Medical History Family History: Unable to Obtain Review of Systems Unable to obtain ROS, reason: Unable to obtain Vital Signs: Vital Signs Temperature 98.1 F 07/03/19 07:49 Pulse Rate 86 07/03/19 07:49 Respiratory Rate 20 07/03/19 08:06 Blood Pressure 132/66 07/03/19 07:49 O2 Sat by Pulse Oximetry (%) 100 07/03/19 06:00 Neck: Yes: Supple Respiratory: Yes: Diminished, Mechanically Ventilated Gastrointestinal: Yes: Normal Bowel Sounds, Soft. No: Tenderness Cardiovascular: Yes: Regular Rate and Rhythm JVD: No PMI: Non-Displaced Heart Sounds: Yes: S1, S2. No: Gallop Murmur: Yes: Systolic Murmur, Grade 1 Edema: No - Other Data Labs, Other Data: CBC, BMP 07/03/19 01:20 07/03/19 01:20 INR, PTT INR 1.65 (0.83-1.09) H 07/03/19 01:04 Troponin, BNP 07/03/19 07/03/19 01:06 04:54 Troponin I 1.11 H* 1.10 H* Imaging - Results Chest X-ray: Report Reviewed EKG: Report Reviewed Problem List - Problems (1) Hypercholesterolemia Code(s): E78.00 - PURE HYPERCHOLESTEROLEMIA, UNSPECIFIED (2) JELANI (acute kidney injury) Code(s): N17.9 - ACUTE KIDNEY FAILURE, UNSPECIFIED (3) Acute urinary tract infection Code(s): N39.0 - URINARY TRACT INFECTION, SITE NOT SPECIFIED (4) Dementia Code(s): F03.90 - UNSPECIFIED DEMENTIA WITHOUT BEHAVIORAL DISTURBANCE (5) Generalized weakness Code(s): R53.1 - WEAKNESS (6) Hypertension Code(s): I10 - ESSENTIAL (PRIMARY) HYPERTENSION (7) Anemia Code(s): D64.9 - ANEMIA, UNSPECIFIED (8) Diabetes Code(s): E11.9 - TYPE 2 DIABETES MELLITUS WITHOUT COMPLICATIONS Qualifiers: Diabetes mellitus complication status: without complication (9) NSTEMI (non-ST elevated myocardial infarction) Code(s): I21.4 - NON-ST ELEVATION (NSTEMI) MYOCARDIAL INFARCTION (10) Respiratory failure Code(s): J96.90 - RESPIRATORY FAILURE, UNSP, UNSP W HYPOXIA OR HYPERCAPNIA Qualifiers: Chronicity: acute Respiratory failure complication: hypoxia Qualified Code(s): J96.01 - Acute respiratory failure with hypoxia Assessment/Plan 1. Respiratory failure s/p intubation on mechanical ventilation 2. HTN 3. Hypercholesterolemia 4. Hypothyoidism 5. NIDDM 6. Cerebrovascular disease 7. Organic brain/dementia PLAN: 1. Vent management 2. Antibiotic coverage 3. DVT prophylaxis 4. Trend troponin and document peak 5. Echocardiography to assess LV/RV and valvular function 6. Restart Metoprolol and Quinapril as BP tolerates and clinically feasible 7. Resume Atorvastatin when able to Further plans are to follow Saad Linton MD
[2019-07-03] MEDS: MUPIROCIN 2% TOPICAL OINTMENT FOR DECOLONIZATION NS SCH ×2 (12:26→22:28)
[2019-07-03 13:45] LABS: BASO % 0.3 % (0-2.0); EOS % 0.1 % (0-4.5); LYMPH % 17.9 % (8-40); MCHC 31.1 g/dl (32.0-36.0); MEAN CELL VOLUME 96.4 fl (80-96); MEAN PLT VOLUME 9.1 fl (7.5-11.1); MONO % 4.3 % (3.8-10.2); NEUT % 77.4 % (42.8-82.8); PLATELET COUNT 160 K/MM3 (134-434); RBC 3.01 M/mm3 (3.60-5.2); RDW 14.7 % (11.6-15.6); WHITE BLOOD COUNT 6.3 K/mm3 (4.0-10.0)
[2019-07-03 14:24] LABS: ALBUMIN 2.6 g/dl (3.4-5.0); BILIRUBIN,TOTAL 0.3 mg/dL (0.2-1); CREATININE 2.5 mg/dL (0.55-1.3); MAGNESIUM 2.8 mg/dL (1.8-2.4); PHOSPHOROUS 3.6 mg/dL (2.5-4.9); POTASSIUM 3.7 mmol/L (3.5-5.1); TOT PROT 6.2 g/dl (6.4-8.2)
[2019-07-03 14:43] LABS: BLOOD UREA NITROGEN 106.2 mg/dL (7-18)
[2019-07-03 15:53] LABS: ANISOCYTOSIS 1+; MACROCYTOSIS 1+; PLATELET ESTIMATE NORMAL; ROULEAU 1+; TEAR DROP CELLS 1+
[2019-07-03] MEDS ORDERED: PIPERACILLIN/TAZOBACTAM 2.25 GM VIAL IVPB ONE (17:37)
[2019-07-03] MEDS: PIPERACILLIN/TAZOB 2.25 GM 2.25 GM in DEXTROSE 5%-WATER - 50 ML IVPB SCH (17:40)
[2019-07-03] MEDS ORDERED: LACTATED RINGERS SOLUTION 1,000 ML/1,000 ML INFUS.BAG IV ONE (20:47)
[2019-07-03] MEDS ORDERED: VASOPRESSIN 20 UNITS/ML VIAL IV ONE (21:59)
[2019-07-03] MEDS: CHLORHEXIDINE GLUCONATE 4% CLEANSER FOR DECOLONIZATION TP SCH (22:29)
[2019-07-03] MEDS: VASOPRESSIN 50 UNITS in SODIUM CHLORIDE 97.5 ML IVPB SCH (22:29)
--- NOTE | 2019-07-03 22:55 | PN ---
Physical Exam: 89 F h/o chronic anemia, chondrocalcinosis, HTN, dementia, HLD, Rectal prolapse (s/p repair), Hypothyroidism and NIDDM who was BIBEMS for respiratory failure. Patient intubated and mechanically ventilated due to acute hypoxic respiratory failure due to LLL CAP and urosepsis. Patient remains on ventilator support. GA: intubated, sedated HEAD: Normal with no signs of trauma EYES: Pupils equal, round and reactive to light NECK: no JVD, trachea midline LUNGS: decreased BS at bases, air entry+ b/l HEART: S1, S2+, no audible S3, RRR ABDOMEN: Soft, nontender, not distended, normoactive bowel sounds.. UPPER EXTREMITIES: 2+ pulses, warm, well-perfused. No cyanosis. No clubbing. Cap refill <2 seconds. No peripheral edema. 5cm skin tear on left tricep LOWER EXTREMITIES: 2+ pulses, warm, well-perfused. trace edema NEUROLOGICAL: sedated. SKIN: Warm, dry, normal turgor, no rashes or lesions noted. 5cm skin tear on left tricep Vital Signs - 24 hr 07/03/19 07/03/19 07/03/19 01:00 01:01 01:15 Temperature 103.3 F H 103.3 F H Pulse Rate 99 H Pulse Rate [ Apical] Respiratory 16 14 Rate Blood Pressure 64/48 L Blood Pressure [Left Arm] O2 Sat by Pulse 92 L Oximetry (%) 07/03/19 07/03/19 07/03/19 01:18 01:30 01:40 Temperature Pulse Rate 116 H Pulse Rate [ 99 H 96 H Apical] Respiratory 14 16 14 Rate Blood Pressure Blood Pressure 102/52 L 133/66 [Left Arm] O2 Sat by Pulse 100 100 100 Oximetry (%) 07/03/19 07/03/19 07/03/19 02:04 03:51 05:08 Temperature Pulse Rate Pulse Rate [ 96 H Apical] Respiratory 16 15 Rate Blood Pressure Blood Pressure 135/66 [Left Arm] O2 Sat by Pulse 100 100 Oximetry (%) 07/03/19 07/03/19 07/03/19 05:42 06:00 06:26 Temperature 98.3 F Pulse Rate 87 Pulse Rate [ 101 H 80 Apical] Respiratory 16 16 16 Rate Blood Pressure 142/66 Blood Pressure 95/53 L 107/60 [Left Arm] O2 Sat by Pulse 100 100 Oximetry (%) 07/03/19 07/03/19 07/03/19 06:31 06:42 07:45 Temperature Pulse Rate Pulse Rate [ Apical] Respiratory 15 15 15 Rate Blood Pressure Blood Pressure [Left Arm] O2 Sat by Pulse Oximetry (%) 07/03/19 07/03/19 07/03/19 07:49 08:00 08:06 Temperature 98.1 F Pulse Rate 86 84 Pulse Rate [ Apical] Respiratory 20 18 20 Rate Blood Pressure 132/66 106/57 L Blood Pressure [Left Arm] O2 Sat by Pulse Oximetry (%) 07/03/19 07/03/19 07/03/19 10:00 12:00 12:35 Temperature 97.5 F L Pulse Rate 79 82 Pulse Rate [ Apical] Respiratory 33 H 17 19 Rate Blood Pressure 107/62 110/58 L Blood Pressure [Left Arm] O2 Sat by Pulse Oximetry (%) 07/03/19 07/03/19 07/03/19 14:00 16:00 16:38 Temperature 98.0 F Pulse Rate 84 94 H Pulse Rate [ Apical] Respiratory 16 24 H 23 H Rate Blood Pressure 122/59 L 103/87 Blood Pressure [Left Arm] O2 Sat by Pulse Oximetry (%) 07/03/19 07/03/19 07/03/19 18:00 19:00 20:00 Temperature 98.2 F Pulse Rate 92 H 88 Pulse Rate [ Apical] Respiratory 24 H 27 H 19 Rate Blood Pressure 114/62 114/65 Blood Pressure [Left Arm] O2 Sat by Pulse Oximetry (%) 07/03/19 07/03/19 07/03/19 20:30 20:45 21:00 Temperature 100.4 F H Pulse Rate 92 H 89 Pulse Rate [ Apical] Respiratory 15 19 22 H Rate Blood Pressure 101/63 89/44 L Blood Pressure [Left Arm] O2 Sat by Pulse 99 Oximetry (%) 07/03/19 07/03/19 07/03/19 21:30 21:45 22:00 Temperature 99.7 F H Pulse Rate 86 79 79 Pulse Rate [ Apical] Respiratory 14 12 20 Rate Blood Pressure 84/47 L 68/42 L 68/39 L Blood Pressure [Left Arm] O2 Sat by Pulse Oximetry (%) 07/03/19 07/03/19 22:29 22:30 Temperature Pulse Rate 69 68 Pulse Rate [ Apical] Respiratory 15 Rate Blood Pressure 89/52 L 89/52 L Blood Pressure [Left Arm] O2 Sat by Pulse Oximetry (%) Microbiology 07/03/19 01:04 Blood - Peripheral Venous Blood Culture - Preliminary Pending Organism Laboratory Results - last 24 hr 07/03/19 07/03/19 07/03/19 01:01 01:02 01:04 WBC RBC Hgb Hct MCV MCH MCHC RDW Plt Count MPV Absolute Neuts (auto) Neutrophils % Neutrophils % (Manual) Band Neutrophils % Lymphocytes % Lymphocytes % (Manual) Monocytes % Monocytes % (Manual) Eosinophils % Eosinophils % (Manual) Basophils % Basophils % (Manual) Myelocytes % (Man) Promyelocytes % (Man) Blast Cells % (Manual) Nucleated RBC % Metamyelocytes Hypochromia Platelet Estimate Polychromasia Poikilocytosis Anisocytosis Microcytosis Macrocytosis Tear Drop Cells Anai Cells Rouleaux PT with INR 19.60 H INR 1.65 H PTT (Actin FS) 34.8 Anticoagulation Therapy Puncture Site ABG pH ABG pCO2 at Pt Temp ABG pO2 at Pt Temp ABG HCO3 ABG O2 Sat (Measured) ABG O2 Content ABG Base Excess Teto Test VBG pH POC VBG pCO2 POC VBG pO2 VBG HCO3 VBG O2 Sat (Brando) VBG Base Excess Carboxyhemoglobin Methemoglobin O2 Delivery Device Oxygen Flow Rate Vent Mode Vent Rate Mechanical Rate Pressure Support Vent Sodium Potassium Chloride Carbon Dioxide Anion Gap BUN Creatinine Est GFR (CKD-EPI)AfAm Est GFR (CKD-EPI)NonAf POC Glucometer 308 Random Glucose Lactic Acid 3.0 H* Calcium Phosphorus Magnesium Total Bilirubin AST ALT Alkaline Phosphatase Creatine Kinase Creatine Kinase Index CK-MB (CK-2) Troponin I Total Protein Albumin Urine Color Urine Appearance Urine pH Ur Specific [place]pine Urine Protein Urine Glucose (UA) Urine Ketones Urine Blood Urine Nitrite Urine Bilirubin Urine Urobilinogen Ur Leukocyte Esterase Urine WBC (Auto) Urine RBC (Auto) Urine Casts (Auto) U Epithel Cells (Auto) Urine Bacteria (Auto) Urine Yeast (Auto) Influenza A (Rapid) Influenza B (Rapid) Blood Type Antibody Screen 07/03/19 07/03/19 07/03/19 01:06 01:15 01:20 WBC 5.3 RBC 2.81 L Hgb 8.3 L Hct 27.3 L MCV 96.9 H MCH 29.6 MCHC 30.6 L RDW 15.0 D Plt Count 184 D MPV 9.1 D Absolute Neuts (auto) 4.6 Neutrophils % 85.5 H D Neutrophils % (Manual) 58.0 Band Neutrophils % 29.0 Lymphocytes % 8.2 D Lymphocytes % (Manual) 5.0 L Monocytes % 6.0 Monocytes % (Manual) 1 L Eosinophils % 0.1 D Eosinophils % (Manual) 0.0 Basophils % 0.2 Basophils % (Manual) 0.0 Myelocytes % (Man) 6 H Promyelocytes % (Man) 0 Blast Cells % (Manual) 0 Nucleated RBC % 0 Metamyelocytes 1 Hypochromia 0 Platelet Estimate Normal Polychromasia 0 Poikilocytosis 2+ Anisocytosis 2+ Microcytosis 3+ Macrocytosis 0 Tear Drop Cells [place] Cells Rouleaux PT with INR INR PTT (Actin FS) Anticoagulation Therapy No Result Required. Puncture Site Right brachial ABG pH 7.28 L ABG pCO2 at Pt Temp 33.5 L ABG pO2 at Pt Temp 172 H ABG HCO3 15.4 L ABG O2 Sat (Measured) 98.4 H ABG O2 Content 19.3 ABG Base Excess -10.0 L Teto Test Positive VBG pH POC VBG pCO2 POC VBG pO2 VBG HCO3 VBG O2 Sat (Brando) VBG Base Excess Carboxyhemoglobin 0.5 Methemoglobin < 1.0 O2 Delivery Device Vent Oxygen Flow Rate Yes Vent Mode No Result Required. Vent Rate 14 Mechanical Rate No Result Required. Pressure Support Vent No Result Required. Sodium Potassium Chloride Carbon Dioxide Anion Gap BUN Creatinine Est GFR (CKD-EPI)AfAm Est GFR (CKD-EPI)NonAf POC Glucometer Random Glucose Lactic Acid Calcium Phosphorus Magnesium Total Bilirubin AST ALT Alkaline Phosphatase Creatine Kinase Creatine Kinase Index CK-MB (CK-2) Troponin I 1.11 H* Total Protein Albumin Urine Color Urine Appearance Urine pH Ur Specific [place] Urine Protein Urine Glucose (UA) Urine Ketones Urine Blood Urine Nitrite Urine Bilirubin Urine Urobilinogen Ur Leukocyte Esterase Urine WBC (Auto) Urine RBC (Auto) Urine Casts (Auto) U Epithel Cells (Auto) Urine Bacteria (Auto) Urine Yeast (Auto) Influenza A (Rapid) Influenza B (Rapid) Blood Type Antibody Screen 01/04/20 01/04/20 01/04/20 01:20 01:20 01:28 WBC RBC Hgb Hct MCV MCH MCHC RDW Plt Count MPV Absolute Neuts (auto) Neutrophils % Neutrophils % (Manual) Band Neutrophils % Lymphocytes % Lymphocytes % (Manual) Monocytes % Monocytes % (Manual) Eosinophils % Eosinophils % (Manual) Basophils % Basophils % (Manual) Myelocytes % (Man) Promyelocytes % (Man) Blast Cells % (Manual) Nucleated RBC % Metamyelocytes Hypochromia Platelet Estimate Polychromasia Poikilocytosis Anisocytosis Microcytosis Macrocytosis Tear Drop Cells [place] Cells Rouleaux PT with INR INR PTT (Actin FS) Anticoagulation Therapy Puncture Site ABG pH ABG pCO2 at Pt Temp ABG pO2 at Pt Temp ABG HCO3 ABG O2 Sat (Measured) ABG O2 Content ABG Base Excess Teto Test VBG pH 7.25 L POC VBG pCO2 38.7 POC VBG pO2 < 49 H VBG HCO3 16.5 L VBG O2 Sat (Brando) 73.3 VBG Base Excess -9.5 L Carboxyhemoglobin Methemoglobin O2 Delivery Device Oxygen Flow Rate Vent Mode Vent Rate Mechanical Rate Pressure Support Vent Sodium 158 H Potassium 4.6 Chloride 131 H Carbon Dioxide 16 L Anion Gap 11 BUN 113.4 H* Creatinine 3.0 H Est GFR (CKD-EPI)AfAm 15.33 Est GFR (CKD-EPI)NonAf 13.22 POC Glucometer Random Glucose 307 H Lactic Acid Calcium 8.4 L Phosphorus Magnesium Total Bilirubin 0.3 AST 32 ALT 15 Alkaline Phosphatase 70 Creatine Kinase 685 H Creatine Kinase Index 0.3 CK-MB (CK-2) 2.4 2.6 Troponin I Total Protein 6.1 L Albumin 2.6 L Urine Color Urine Appearance Urine pH Ur Specific [place] Urine Protein Urine Glucose (UA) Urine Ketones Urine Blood Urine Nitrite Urine Bilirubin Urine Urobilinogen Ur Leukocyte Esterase Urine WBC (Auto) Urine RBC (Auto) Urine Casts (Auto) U Epithel Cells (Auto) Urine Bacteria (Auto) Urine Yeast (Auto) Influenza A (Rapid) Influenza B (Rapid) Blood Type Antibody Screen 07/03/19 07/03/19 07/03/19 02:14 02:15 04:44 WBC RBC Hgb Hct MCV MCH MCHC RDW Plt Count MPV Absolute Neuts (auto) Neutrophils % Neutrophils % (Manual) Band Neutrophils % Lymphocytes % Lymphocytes % (Manual) Monocytes % Monocytes % (Manual) Eosinophils % Eosinophils % (Manual) Basophils % Basophils % (Manual) Myelocytes % (Man) Promyelocytes % (Man) Blast Cells % (Manual) Nucleated RBC % Metamyelocytes Hypochromia Platelet Estimate Polychromasia Poikilocytosis Anisocytosis Microcytosis Macrocytosis Tear Drop Cells Anai Cells Rouleaux PT with INR INR PTT (Actin FS) Anticoagulation Therapy Puncture Site ABG pH ABG pCO2 at Pt Temp ABG pO2 at Pt Temp ABG HCO3 ABG O2 Sat (Measured) ABG O2 Content ABG Base Excess Teto Test VBG pH POC VBG pCO2 POC VBG pO2 VBG HCO3 VBG O2 Sat (Brando) VBG Base Excess Carboxyhemoglobin Methemoglobin O2 Delivery Device Oxygen Flow Rate Vent Mode Vent Rate Mechanical Rate Pressure Support Vent Sodium Potassium Chloride Carbon Dioxide Anion Gap BUN Creatinine Est GFR (CKD-EPI)AfAm Est GFR (CKD-EPI)NonAf POC Glucometer Random Glucose Lactic Acid 1.4 Calcium Phosphorus Magnesium Total Bilirubin AST ALT Alkaline Phosphatase Creatine Kinase Creatine Kinase Index CK-MB (CK-2) Troponin I Total Protein Albumin Urine Color Other Urine Appearance Turbid Urine pH 8.5 H D Ur Specific Alpine 1.017 Urine Protein 1+ H Urine Glucose (UA) Negative Urine Ketones Negative Urine Blood Negative Urine Nitrite Positive H Urine Bilirubin Negative Urine Urobilinogen 0.2 Ur Leukocyte Esterase 3+ H Urine WBC (Auto) 36 Urine RBC (Auto) 1 Urine Casts (Auto) 16 U Epithel Cells (Auto) 1.0 Urine Bacteria (Auto) 165.1 Urine Yeast (Auto) None seen Influenza A (Rapid) Negative Influenza B (Rapid) Negative Blood Type Antibody Screen 07/03/19 07/03/19 07/03/19 04:54 04:54 07:19 WBC RBC Hgb Hct MCV MCH MCHC RDW Plt Count MPV Absolute Neuts (auto) Neutrophils % Neutrophils % (Manual) Band Neutrophils % Lymphocytes % Lymphocytes % (Manual) Monocytes % Monocytes % (Manual) Eosinophils % Eosinophils % (Manual) Basophils % Basophils % (Manual) Myelocytes % (Man) Promyelocytes % (Man) Blast Cells % (Manual) Nucleated RBC % Metamyelocytes Hypochromia Platelet Estimate Polychromasia Poikilocytosis Anisocytosis Microcytosis Macrocytosis Tear Drop Cells Anai Cells Rouleaux PT with INR INR PTT (Actin FS) Anticoagulation Therapy Puncture Site ABG pH ABG pCO2 at Pt Temp ABG pO2 at Pt Temp ABG HCO3 ABG O2 Sat (Measured) ABG O2 Content ABG Base Excess Teto Test VBG pH POC VBG pCO2 POC VBG pO2 VBG HCO3 VBG O2 Sat (Brando) VBG Base Excess Carboxyhemoglobin Methemoglobin O2 Delivery Device Oxygen Flow Rate Vent Mode Vent Rate Mechanical Rate Pressure Support Vent Sodium Potassium Chloride Carbon Dioxide Anion Gap BUN Creatinine Est GFR (CKD-EPI)AfAm Est GFR (CKD-EPI)NonAf POC Glucometer 343 Random Glucose Lactic Acid Calcium Phosphorus Magnesium Total Bilirubin AST ALT Alkaline Phosphatase Creatine Kinase 803 H Creatine Kinase Index 0.4 CK-MB (CK-2) 3.5 Troponin I 1.10 H* Total Protein Albumin Urine Color Urine Appearance Urine pH Ur Specific [place] Urine Protein Urine Glucose (UA) Urine Ketones Urine Blood Urine Nitrite Urine Bilirubin Urine Urobilinogen Ur Leukocyte Esterase Urine WBC (Auto) Urine RBC (Auto) Urine Casts (Auto) U Epithel Cells (Auto) Urine Bacteria (Auto) Urine Yeast (Auto) Influenza A (Rapid) Influenza B (Rapid) Blood Type A POSITIVE Antibody Screen Negative 07/03/19 07/03/19 07/03/19 12:07 13:09 13:09 WBC RBC Hgb Hct MCV MCH MCHC RDW Plt Count MPV Absolute Neuts (auto) Neutrophils % Neutrophils % (Manual) Band Neutrophils % Lymphocytes % Lymphocytes % (Manual) Monocytes % Monocytes % (Manual) Eosinophils % Eosinophils % (Manual) Basophils % Basophils % (Manual) Myelocytes % (Man) Promyelocytes % (Man) Blast Cells % (Manual) Nucleated RBC % Metamyelocytes Hypochromia Platelet Estimate Polychromasia Poikilocytosis Anisocytosis Microcytosis Macrocytosis Tear Drop Cells Anai Cells Rouleaux PT with INR INR PTT (Actin FS) Anticoagulation Therapy Puncture Site ABG pH ABG pCO2 at Pt Temp ABG pO2 at Pt Temp ABG HCO3 ABG O2 Sat (Measured) ABG O2 Content ABG Base Excess Teto Test VBG pH POC VBG pCO2 POC VBG pO2 VBG HCO3 VBG O2 Sat (Brando) VBG Base Excess Carboxyhemoglobin Methemoglobin O2 Delivery Device Oxygen Flow Rate Vent Mode Vent Rate Mechanical Rate Pressure Support Vent Sodium Potassium Chloride Carbon Dioxide Anion Gap BUN Creatinine Est GFR (CKD-EPI)AfAm Est GFR (CKD-EPI)NonAf POC Glucometer 332 Random Glucose Lactic Acid 2.5 H* Calcium Phosphorus Magnesium Total Bilirubin AST ALT Alkaline Phosphatase Creatine Kinase Creatine Kinase Index CK-MB (CK-2) Troponin I 0.64 H* Total Protein Albumin Urine Color Urine Appearance Urine pH Ur Specific [place] Urine Protein Urine Glucose (UA) Urine Ketones Urine Blood Urine Nitrite Urine Bilirubin Urine Urobilinogen Ur Leukocyte Esterase Urine WBC (Auto) Urine RBC (Auto) Urine Casts (Auto) U Epithel Cells (Auto) Urine Bacteria (Auto) Urine Yeast (Auto) Influenza A (Rapid) Influenza B (Rapid) Blood Type Antibody Screen 07/03/19 07/03/19 07/03/19 13:09 13:09 17:50 WBC 6.3 RBC 3.01 L Hgb 9.0 L Hct 29.0 L MCV 96.4 H MCH 30.0 MCHC 31.1 L RDW 14.7 Plt Count 160 MPV 9.1 Absolute Neuts (auto) 4.9 Neutrophils % 77.4 Neutrophils % (Manual) 66.7 Band Neutrophils % 7.3 Lymphocytes % 17.9 D Lymphocytes % (Manual) 17.7 D Monocytes % 4.3 Monocytes % (Manual) 5 D Eosinophils % 0.1 Eosinophils % (Manual) 0.0 Basophils % 0.3 Basophils % (Manual) 0.0 Myelocytes % (Man) 0 D Promyelocytes % (Man) 0 Blast Cells % (Manual) 0 Nucleated RBC % 0 Metamyelocytes 3 H D Hypochromia 1+ Platelet Estimate Normal Polychromasia 1+ Poikilocytosis 2+ Anisocytosis 1+ Microcytosis 0 Macrocytosis 1+ Tear Drop Cells 1+ Anai Cells 1+ Rouleaux 1+ PT with INR INR PTT (Actin FS) Anticoagulation Therapy Puncture Site ABG pH ABG pCO2 at Pt Temp ABG pO2 at Pt Temp ABG HCO3 ABG O2 Sat (Measured) ABG O2 Content ABG Base Excess Teto Test VBG pH POC VBG pCO2 POC VBG pO2 VBG HCO3 VBG O2 Sat (Brando) VBG Base Excess Carboxyhemoglobin Methemoglobin O2 Delivery Device Oxygen Flow Rate Vent Mode Vent Rate Mechanical Rate Pressure Support Vent Sodium 158 H Potassium 3.7 Chloride 128 H Carbon Dioxide 20 L Anion Gap 10 BUN 106.2 H* Creatinine 2.5 H Est GFR (CKD-EPI)AfAm 19.10 Est GFR (CKD-EPI)NonAf 16.48 POC Glucometer 219 Random Glucose 367 H Lactic Acid Calcium 8.0 L Phosphorus 3.6 Magnesium 2.8 H Total Bilirubin 0.3 AST 37 ALT 17 Alkaline Phosphatase 80 Creatine Kinase Creatine Kinase Index CK-MB (CK-2) Troponin I Total Protein 6.2 L Albumin 2.6 L Urine Color Urine Appearance Urine pH Ur Specific [place] Urine Protein Urine Glucose (UA) Urine Ketones Urine Blood Urine Nitrite Urine Bilirubin Urine Urobilinogen Ur Leukocyte Esterase Urine WBC (Auto) Urine RBC (Auto) Urine Casts (Auto) U Epithel Cells (Auto) Urine Bacteria (Auto) Urine Yeast (Auto) Influenza A (Rapid) Influenza B (Rapid) Blood Type Antibody Screen 07/03/19 20:29 WBC RBC Hgb Hct MCV MCH MCHC RDW Plt Count MPV Absolute Neuts (auto) Neutrophils % Neutrophils % (Manual) Band Neutrophils % Lymphocytes % Lymphocytes % (Manual) Monocytes % Monocytes % (Manual) Eosinophils % Eosinophils % (Manual) Basophils % Basophils % (Manual) Myelocytes % (Man) Promyelocytes % (Man) Blast Cells % (Manual) Nucleated RBC % Metamyelocytes Hypochromia Platelet Estimate Polychromasia Poikilocytosis Anisocytosis Microcytosis Macrocytosis Tear Drop Cells Anai Cells Rouleaux PT with INR INR PTT (Actin FS) Anticoagulation Therapy Puncture Site ABG pH ABG pCO2 at Pt Temp ABG pO2 at Pt Temp ABG HCO3 ABG O2 Sat (Measured) ABG O2 Content ABG Base Excess Teto Test VBG pH POC VBG pCO2 POC VBG pO2 VBG HCO3 VBG O2 Sat (Brando) VBG Base Excess Carboxyhemoglobin Methemoglobin O2 Delivery Device Oxygen Flow Rate Vent Mode Vent Rate Mechanical Rate Pressure Support Vent Sodium Potassium Chloride Carbon Dioxide Anion Gap BUN Creatinine Est GFR (CKD-EPI)AfAm Est GFR (CKD-EPI)NonAf POC Glucometer 135 Random Glucose Lactic Acid Calcium Phosphorus Magnesium Total Bilirubin AST ALT Alkaline Phosphatase Creatine Kinase Creatine Kinase Index CK-MB (CK-2) Troponin I Total Protein Albumin Urine Color Urine Appearance Urine pH Ur Specific [place] Urine Protein Urine Glucose (UA) Urine Ketones Urine Blood Urine Nitrite Urine Bilirubin Urine Urobilinogen Ur Leukocyte Esterase Urine WBC (Auto) Urine RBC (Auto) Urine Casts (Auto) U Epithel Cells (Auto) Urine Bacteria (Auto) Urine Yeast (Auto) Influenza A (Rapid) Influenza B (Rapid) Blood Type Antibody Screen Current Medications Generic Name Dose Route Start Last Admin Trade Name Stacia PRN Reason Stop Dose Admin Chlorhexidine Gluconate 1 applic 07/03/19 22:00 07/03/19 22:29 Hibiclens For Decolonization - TP 1 applic HS SILVINO Administration Heparin Sodium (Porcine) 5,000 unit 07/03/19 06:00 07/03/19 22:29 Heparin - SQ 5,000 unit TID SILVINO Administration Fentanyl 500 mcg/ Dextrose 100 mls @ 5 mls/hr 07/03/19 03:30 07/03/19 04:58 IVPB 25 mcg/hr TITR SILVINO 5 mls/hr Administration 25 MCG/HR Sodium Chloride 1,000 mls @ 125 mls/hr 07/03/19 06:17 07/03/19 17:40 1/2 Normal Saline IV 125 mls/hr ASDIR SILVINO Administration Azithromycin 500 mg in 250 mls @ 250 mls/hr 07/04/19 10:00 Zithromax 500mg Ivpb (Pre-Docked) IVPB DAILY SILVINO Piperacillin Sod/Tazobactam 50 mls @ 100 mls/hr 07/03/19 18:00 07/03/19 17:40 Sod 2.25 gm/ Dextrose IVPB 100 mls/hr Q8H-IV SILVINO Administration Protocol Vasopressin 50 units/ Sodium 100 mls @ 4 mls/hr 07/03/19 22:00 07/03/19 22:29 Chloride IVPB 2 units/hr ASDIR SILVINO 4 mls/hr Administration Protocol 2 UNITS/HR Insulin Aspart 1 vial 07/03/19 06:15 07/03/19 22:28 Novolog Vial Sliding Scale - SQ Not Given Q4H SILVINO Protocol Mupirocin 1 applic 07/03/19 10:00 07/03/19 22:28 Bactroban Ointment (For Decolonization) - NS 07/08/19 09:59 1 applic BID SILVINO Administration A/P: 89 F h/o TIA, chronic anemia, dementia, HTN, NIDDM, HLD presented with septic shock due to acute hypoxemic respiratory failure 2/2 LLL CAP and urosepsis. Acute hypoxemic respiratory failure Due to LLL CAP Cont. Zosyn/Vanc, switch Azithromycin to Doxycycline in view of prolonged Qtc Cont. full vent support Send FLU/RSV/Legionella/Strep/Sputum cx ID consult UTI Cont. Abx, follow urine cx Cont. I/O w/ moreira Trend CRE improved w/ hydration, likely pre-renal Renal consult Troponemia Likely demand ischemia Trop trending down, get one more trop to confirm downtrend Lactic acidosis Likely due to shock, pre-renal azotemia poor clearance Cont. IVF, trend lactate Prolonged QTc QTc 505, Mg given, monitor with daily EKGs Avoid QTc prolonging agents, give Mg PRN T2DM ISS titrate for F/S 140-180 Consider insulin drip of patient becomes hyperglycemic Dementia Avoid excessive sedation Lowest dose Fentanyl for vent synchrony Daily sedation vacations w/ mental status checks F: / NS @ 125 ml/hr. Free water 300 cc Q8H E: Monitor chem daily N: NPO/ OGT in place GI PPX: add H2 jennifer for GI ppx (avoid PPI due to renal status) DVT: Heparin 5000 unit SQ Visit type - Emergency Visit Emergency Visit: Yes ED Registration Date: 07/03/19 Care time: The patient presented to the Emergency Department on the above date and was hospitalized for further evaluation of their emergent condition. - New Patient This patient is new to me today: Yes Date on this admission: 07/03/19 - Critical Care Critical Care patient: Yes Total Critical Care Time (in minutes): 35 Critical Care Statement: The care of this patient involved high complexity decision making to prevent further life threatening deterioration of the patient 's condition and/or to evaluate & treat vital organ system(s) failure or risk of failure. - Discharge Referral Referred to [facility] No
--- NOTE | 2019-07-03 23:12 | PROC ---
Central Line Insertion Indication: Sepsis, Vasopressor Risks and Benefits Explained: Yes Consent on Chart: Yes Central Line: Triple Lumen Catheter Anesthesia: 1% Lidocaine Sterile Technique: Yes Ultrasound Guided Assistance: Yes Position: Right Internal Jugular Post Insertion: Yes: Bilateral Breath Sounds, Bilateral Chest Expansion, Chest X-Ray Ordered Sterile Dressing Applied: Yes
--- NOTE | 2019-07-03 23:15 | EKG ---
Test Reason : Blood Pressure : / mmHG Vent. Rate : 094 BPM Atrial Rate : 094 BPM P-R Int : 152 ms QRS Dur : 096 ms QT Int : 390 ms P-R-T Axes : 062 -11 082 degrees QTc Int : 487 ms NORMAL SINUS RHYTHM PROLONGED QT ABNORMAL ECG WHEN COMPARED WITH ECG OF 03-JUL-2019 01:10, Confirmed by LULI NAVAS MD ([id number]) on 07/03/2019 11:15:19 PM Referred By: Confirmed By:LULI NAVAS MD
--- NOTE | 2019-07-03 23:15 | EKG ---
Test Reason : Blood Pressure : / mmHG Vent. Rate : 082 BPM Atrial Rate : 082 BPM P-R Int : 148 ms QRS Dur : 100 ms QT Int : 426 ms P-R-T Axes : 066 -07 051 degrees QTc Int : 497 ms NORMAL SINUS RHYTHM CANNOT RULE OUT INFERIOR INFARCT , AGE UNDETERMINED ABNORMAL ECG WHEN COMPARED WITH ECG OF 03-JUL-2019 02:31, Confirmed by LULI NAVAS MD ([id number]) on 07/03/2019 11:14:46 PM Referred By: Confirmed By:LULI NAVAS MD
--- NOTE | 2019-07-03 23:16 | EKG ---
Test Reason : Blood Pressure : / mmHG Vent. Rate : 112 BPM Atrial Rate : 112 BPM P-R Int : 142 ms QRS Dur : 096 ms QT Int : 370 ms P-R-T Axes : 072 007 178 degrees QTc Int : 505 ms [address]YCARDIA MARKED [address] ABNORMALITY, POSSIBLE LATERAL SUBENDOCARDIAL INJURY ABNORMAL ECG WHEN COMPARED WITH ECG OF 18-APR-2019 15:25, VENT. RATE HAS INCREASED BY 38 BPM Confirmed by LULI NAVAS MD ([id number]) on 07/03/2019 11:16:31 PM Referred By: Confirmed By:LULI NAVAS MD
[2019-07-03] MEDS ORDERED: NOREPINEPHRINE BITARTRATE 4 MG/4 ML ML IV ONE (23:24)
[2019-07-04] MEDS ORDERED: DEXTROSE 5%-WATER - 50 ML IVPB ONE ×3 (00:07→16:27)
[2019-07-04] MEDS ORDERED: PIPERACILLIN/TAZOBACTAM 2.25 GM VIAL IVPB ONE ×3 (00:07→16:27)
[2019-07-04] MEDS: NOREPINEPHRINE BITARTRATE 8,000 MCG in DEXTROSE 5%-WATER - 492 ML IV SCH (01:00)
[2019-07-04] MEDS: PIPERACILLIN/TAZOB 2.25 GM 2.25 GM in DEXTROSE 5%-WATER - 50 ML IVPB SCH ×3 (02:00→17:06)
[2019-07-04 04:08] LABS: HEMATOCRIT 21.2 % (32.4-45.2); MCH 30.1 pg (25.7-33.7); MCHC 32.2 g/dl (32.0-36.0); MEAN CELL VOLUME 93.6 fl (80-96); MEAN PLT VOLUME 8.7 fl (7.5-11.1); PLATELET COUNT 130 K/MM3 (134-434); RBC 2.27 M/mm3 (3.60-5.2); RDW 14.5 % (11.6-15.6); WHITE BLOOD COUNT 5.3 K/mm3 (4.0-10.0)
[2019-07-04 04:16] LABS: HEMOGLOBIN 6.8 GM/dL (10.7-15.3)
[2019-07-04] MEDS: FENTANYL INJECTION 500 MCG in DEXTROSE 5%-WATER - 90 ML IVPB SCH (04:26)
[2019-07-04 04:46] LABS: BLOOD UREA NITROGEN 78.1 mg/dL (7-18); CALCIUM 7.4 mg/dL (8.5-10.1); CREATININE 1.6 mg/dL (0.55-1.3); MAGNESIUM 2.1 mg/dL (1.8-2.4); POTASSIUM 3.3 mmol/L (3.5-5.1)
[2019-07-04] MEDS ORDERED: SODIUM CHLORIDE 0.45% 1,000 ML with POTASSIUM CHLORIDE 30 MEQ IVPB SCH (06:00)
[2019-07-04] MEDS: INSULIN SLIDING SCALE (NOVOLOG) 1 VIAL SQ SCH ×4 (06:18→17:11)
[2019-07-04 07:05] LABS: ARTERIAL BLD GAS O2 SATURATION 98.1 % (95-98); ARTERIAL BLOOD GAS BASE EXCESS -6.9 meq/l (-2-2); ARTERIAL BLOOD GAS PCO2 30.1 mmHg (35-45); ARTERIAL BLOOD GAS pH 7.37 (7.35-7.45)
[2019-07-04 07:18] LABS: ALLENS TEST POSITIVE; ARTERIAL BLOOD GAS PO2 132 mmHg (80-100)
[2019-07-04] MEDS ORDERED: POTASSIUM CHLORIDE 30 MEQ in SODIUM CHLORIDE 0.45% 1,000 ML IVPB SCH (08:51)
--- NOTE | 2019-07-04 09:09 | PN ---
Teaching Attending Note Name of Resident: Orin Alonzo ATTENDING PHYSICIAN STATEMENT I saw and evaluated the patient. I reviewed the resident's note and discussed the case with the resident. I agree with the resident's findings and plan as documented. SUBJECTIVE: Patient seen and examined in the ICU. Intubated and sedated. AC Mode of vent, 50% FiO2. NE @ 2 mcq for hemodynamic support. Intake & Output 07/01/19 07/02/19 07/03/19 07/04/19 23:59 23:59 23:59 23:59 Intake Total 4850 3505 Output Total 700 700 Balance 4150 2805 Weight 117 lb 15.157 oz 121 lb 9.6 oz Last Vital Signs Temp Pulse Resp BP Pulse Ox 97.8 F 76 17 139/63 99 07/04/19 06:00 07/04/19 06:00 07/04/19 08:11 07/04/19 06:00 07/03/19 21:00 Active Medications Chlorhexidine Gluconate (Hibiclens For Decolonization -) 1 applic TP HS SILVINO Last Admin: 07/03/19 22:29 Dose: 1 applic Heparin Sodium (Porcine) (Heparin -) 5,000 unit SQ TID SILVINO Last Admin: 07/03/19 22:29 Dose: 5,000 unit Fentanyl 500 mcg/ Dextrose 100 mls @ 5 mls/hr IVPB TITR SILVINO Last Admin: 07/04/19 04:26 Dose: 25 mcg/hr, 5 mls/hr Azithromycin (Zithromax 500mg Ivpb (Pre-Docked)) 500 mg in 250 mls @ 250 mls/ hr IVPB DAILY SILVINO Piperacillin Sod/Tazobactam (Sod 2.25 gm/ Dextrose) 50 mls @ 100 mls/hr IVPB Q8H-IV SILVINO; Protocol Last Admin: 07/04/19 02:00 Dose: 100 mls/hr Vasopressin 50 units/ Sodium (Chloride) 100 mls @ 4 mls/hr IVPB ASDIR SILVINO; Protocol Last Admin: 07/03/19 22:29 Dose: 2 units/hr, 4 mls/hr Norepinephrine Bitartrate 8, (000 mcg/ Dextrose) 500 mls @ 6.01 mls/hr IV ASDIR SILVINO; Protocol Last Titration: 07/04/19 04:00 Dose: 0.03 mcg/kg/min, 7.5 mls/hr Potassium Chloride 30 meq/ (Sodium Chloride) 1,015 mls @ 125 mls/hr IVPB ASDIR [facility] Stop: 07/05/19 14:08 Insulin Aspart (Novolog Vial Sliding Scale -) 1 vial SQ Q6H [facility]; Protocol Last Admin: 07/04/19 06:18 Dose: 2 unit Mupirocin (Bactroban Ointment (For Decolonization) -) 1 applic NS BID [facility] Stop: 07/08/19 09:59 Last Admin: 07/03/19 22:28 Dose: 1 applic GENERAL: intubated, sedated. HEAD: Normal with no signs of trauma. EYES: Pupils equal, round and reactive to light. EARS, NOSE, THROAT: dry mucous membranes. NECK: trachea midline no JVD. LUNGS: Vented, diminished at the bases HEART: Regular rate and rhythm, normal S1 and S2 without murmur, rub or gallop. ABDOMEN: Soft, nontender, not distended, normoactive bowel sounds.. UPPER EXTREMITIES: 2+ pulses, warm, well-perfused. No cyanosis. No clubbing. Cap refill <2 seconds. No peripheral edema.5cm skin tear on left tricep LOWER EXTREMITIES: 2+ pulses, warm, well-perfused. trace edema NEUROLOGICAL: sedated. SKIN: Warm, dry, normal turgor, no rashes or lesions noted. 5cm skin tear on left tricep Laboratory Results - last 24 hr 07/03/19 07/03/19 07/03/19 04:54 12:07 13:09 WBC RBC Hgb Hct MCV MCH MCHC RDW Plt Count MPV Absolute Neuts (auto) Neutrophils % Neutrophils % (Manual) Band Neutrophils % Lymphocytes % Lymphocytes % (Manual) Monocytes % Monocytes % (Manual) Eosinophils % Eosinophils % (Manual) Basophils % Basophils % (Manual) Myelocytes % (Man) Promyelocytes % (Man) Blast Cells % (Manual) Nucleated RBC % Metamyelocytes Hypochromia Platelet Estimate Polychromasia Poikilocytosis Anisocytosis Microcytosis Macrocytosis Tear Drop Cells [place] Cells Rouleaux Anticoagulation Therapy Puncture Site Patient Temperature ABG pH ABG pCO2 at Pt Temp ABG pO2 at Pt Temp ABG HCO3 ABG O2 Sat (Measured) ABG O2 Content ABG Base Excess Teto Test O2 Delivery Device Oxygen Flow Rate Vent Mode Vent Rate Mechanical Rate PEEP Pressure Support Vent Sodium Potassium Chloride Carbon Dioxide Anion Gap BUN Creatinine Est GFR (CKD-EPI)AfAm Est GFR (CKD-EPI)NonAf POC Glucometer 332 Random Glucose Lactic Acid Calcium Phosphorus Magnesium Total Bilirubin AST ALT Alkaline Phosphatase Creatine Kinase Creatine Kinase Index CK-MB (CK-2) Troponin I 0.64 H* Total Protein Albumin Blood Type A POSITIVE Antibody Screen Negative Crossmatch See Detail 07/03/19 07/03/19 07/03/19 13:09 13:09 13:09 WBC 6.3 RBC 3.01 L Hgb 9.0 L Hct 29.0 L MCV 96.4 H MCH 30.0 MCHC 31.1 L RDW 14.7 Plt Count 160 MPV 9.1 Absolute Neuts (auto) 4.9 Neutrophils % 77.4 Neutrophils % (Manual) 66.7 Band Neutrophils % 7.3 Lymphocytes % 17.9 D Lymphocytes % (Manual) 17.7 D Monocytes % 4.3 Monocytes % (Manual) 5 D Eosinophils % 0.1 Eosinophils % (Manual) 0.0 Basophils % 0.3 Basophils % (Manual) 0.0 Myelocytes % (Man) 0 D Promyelocytes % (Man) 0 Blast Cells % (Manual) 0 Nucleated RBC % 0 Metamyelocytes 3 H D Hypochromia 1+ Platelet Estimate Normal Polychromasia 1+ Poikilocytosis 2+ Anisocytosis 1+ Microcytosis 0 Macrocytosis 1+ Tear Drop Cells 1+ [place] Cells 1+ Rouleaux 1+ Anticoagulation Therapy Puncture Site Patient Temperature ABG pH ABG pCO2 at Pt Temp ABG pO2 at Pt Temp ABG HCO3 ABG O2 Sat (Measured) ABG O2 Content ABG Base Excess Teto Test O2 Delivery Device Oxygen Flow Rate Vent Mode Vent Rate Mechanical Rate PEEP Pressure Support Vent Sodium 158 H Potassium 3.7 Chloride 128 H Carbon Dioxide 20 L Anion Gap 10 BUN 106.2 H* Creatinine 2.5 H Est GFR (CKD-EPI)AfAm 19.10 Est GFR (CKD-EPI)NonAf 16.48 POC Glucometer Random Glucose 367 H Lactic Acid 2.5 H* Calcium 8.0 L Phosphorus 3.6 Magnesium 2.8 H Total Bilirubin 0.3 AST 37 ALT 17 Alkaline Phosphatase 80 Creatine Kinase Creatine Kinase Index CK-MB (CK-2) Troponin I Total Protein 6.2 L Albumin 2.6 L Blood Type Antibody Screen Crossmatch 07/03/19 07/03/19 07/04/19 17:50 20:29 03:50 WBC 5.3 RBC 2.27 L Hgb 6.8 L* Hct 21.2 L D MCV 93.6 MCH 30.1 MCHC 32.2 RDW 14.5 Plt Count 130 L MPV 8.7 Absolute Neuts (auto) Neutrophils % Neutrophils % (Manual) Band Neutrophils % Lymphocytes % Lymphocytes % (Manual) Monocytes % Monocytes % (Manual) Eosinophils % Eosinophils % (Manual) Basophils % Basophils % (Manual) Myelocytes % (Man) Promyelocytes % (Man) Blast Cells % (Manual) Nucleated RBC % Metamyelocytes Hypochromia Platelet Estimate Polychromasia Poikilocytosis Anisocytosis Microcytosis Macrocytosis Tear Drop Cells [place] Cells Rouleaux Anticoagulation Therapy Puncture Site Patient Temperature ABG pH ABG pCO2 at Pt Temp ABG pO2 at Pt Temp ABG HCO3 ABG O2 Sat (Measured) ABG O2 Content ABG Base Excess Teto Test O2 Delivery Device Oxygen Flow Rate Vent Mode Vent Rate Mechanical Rate PEEP Pressure Support Vent Sodium Potassium Chloride Carbon Dioxide Anion Gap BUN Creatinine Est GFR (CKD-EPI)AfAm Est GFR (CKD-EPI)NonAf POC Glucometer 219 135 Random Glucose Lactic Acid Calcium Phosphorus Magnesium Total Bilirubin AST ALT Alkaline Phosphatase Creatine Kinase Creatine Kinase Index CK-MB (CK-2) Troponin I Total Protein Albumin Blood Type Antibody Screen Crossmatch 07/04/19 07/04/19 07/04/19 03:50 05:17 05:25 WBC RBC Hgb Hct MCV MCH MCHC RDW Plt Count MPV Absolute Neuts (auto) Neutrophils % Neutrophils % (Manual) Band Neutrophils % Lymphocytes % Lymphocytes % (Manual) Monocytes % Monocytes % (Manual) Eosinophils % Eosinophils % (Manual) Basophils % Basophils % (Manual) Myelocytes % (Man) Promyelocytes % (Man) Blast Cells % (Manual) Nucleated RBC % Metamyelocytes Hypochromia Platelet Estimate Polychromasia Poikilocytosis Anisocytosis Microcytosis Macrocytosis Tear Drop Cells [place] Cells Rouleaux Anticoagulation Therapy Puncture Site Patient Temperature ABG pH ABG pCO2 at Pt Temp ABG pO2 at Pt Temp ABG HCO3 ABG O2 Sat (Measured) ABG O2 Content ABG Base Excess Teto Test O2 Delivery Device Oxygen Flow Rate Vent Mode Vent Rate Mechanical Rate PEEP Pressure Support Vent Sodium 152 H Potassium 3.3 L Chloride 123 H Carbon Dioxide 18 L Anion Gap 11 BUN 78.1 H Creatinine 1.6 H Est GFR (CKD-EPI)AfAm 32.77 Est GFR (CKD-EPI)NonAf 28.27 POC Glucometer 176 Random Glucose 176 H Lactic Acid 2.8 H* Calcium 7.4 L Phosphorus 3.0 Magnesium 2.1 Total Bilirubin AST ALT Alkaline Phosphatase Creatine Kinase Creatine Kinase Index CK-MB (CK-2) Troponin I 0.28 H Total Protein Albumin Blood Type Antibody Screen Crossmatch 07/04/19 07/04/19 07/04/19 05:50 06:00 06:50 WBC RBC Hgb Hct MCV MCH MCHC RDW Plt Count MPV Absolute Neuts (auto) Neutrophils % Neutrophils % (Manual) Band Neutrophils % Lymphocytes % Lymphocytes % (Manual) Monocytes % Monocytes % (Manual) Eosinophils % Eosinophils % (Manual) Basophils % Basophils % (Manual) Myelocytes % (Man) Promyelocytes % (Man) Blast Cells % (Manual) Nucleated RBC % Metamyelocytes Hypochromia Platelet Estimate Polychromasia Poikilocytosis Anisocytosis Microcytosis Macrocytosis Tear Drop Cells [place] Cells Rouleaux Anticoagulation Therapy Cancelled No Result Required. Puncture Site Cancelled Right brachial Patient Temperature Cancelled ABG pH Cancelled 7.37 ABG pCO2 at Pt Temp Cancelled 30.1 L ABG pO2 at Pt Temp Cancelled 132 H ABG HCO3 Cancelled 17.0 L ABG O2 Sat (Measured) Cancelled 98.1 H ABG O2 Content Cancelled 30.1 ABG Base Excess Cancelled -6.9 L Teto Test Cancelled Positive O2 Delivery Device Cancelled A/c Oxygen Flow Rate Cancelled 50% Vent Mode Cancelled No Result Required. Vent Rate Cancelled No Result Required. Mechanical Rate Cancelled No Result Required. PEEP Cancelled 5.0 Pressure Support Vent Cancelled 450 Sodium Potassium Chloride Carbon Dioxide Anion Gap BUN Creatinine Est GFR (CKD-EPI)AfAm Est GFR (CKD-EPI)NonAf POC Glucometer Random Glucose Lactic Acid Calcium Phosphorus Magnesium Total Bilirubin AST ALT Alkaline Phosphatase Creatine Kinase 498 H Creatine Kinase Index 0.8 CK-MB (CK-2) 4.0 H Troponin I Total Protein Albumin Blood Type Antibody Screen Crossmatch ASSESSMENT/PLAN: Acute Respiratory Failure due to suspected LLL CAP Sepsis / Septic Shock UTI History of TIA Anemia Dementia HTN NIDDM HLD Elevated Troponin JELANI Hypernatremia ABX per ID Follow cultures IVF Strict I & O VTE prophylaxis Wean FiO2 as tolerated Enteral feeds Requires ICU monitoring Dr Paula Critical care time spent in reviewing chart, evaluating patient and formulating plan - 36 minutes.
--- NOTE | 2019-07-04 09:32 | PN ---
Progress Note (short form) - Note Progress Note: Renal follow up for JELANI Seen and examined at the bedside sedated on vent via ET tube started on vasopressers overnight making urine Vital Signs Temperature 97.8 F 07/04/19 06:00 Pulse Rate 76 07/04/19 06:00 Respiratory Rate 17 07/04/19 08:11 Blood Pressure 139/63 07/04/19 06:00 O2 Sat by Pulse Oximetry (%) 99 07/03/19 21:00 Intake & Output 07/01/19 07/02/19 07/03/19 07/04/19 23:59 23:59 23:59 23:59 Intake Total 4850 3505 Output Total 700 700 Balance 4150 2805 Weight 53.5 kg 55.157 kg NAD intubated, sedated neck supple no JVD RRR Dec BS, no rales or wheeze soft NT/ND no LE edema, clubbing or cyanosis no bladder distension moreira in place CBC, BMP 07/04/19 03:50 07/04/19 03:50 Current Medications Chlorhexidine Gluconate (Hibiclens For Decolonization -) 1 applic TP HS SILVINO Last Admin: 07/03/19 22:29 Dose: 1 applic Heparin Sodium (Porcine) (Heparin -) 5,000 unit SQ TID SILVINO Last Admin: 07/03/19 22:29 Dose: 5,000 unit Fentanyl 500 mcg/ Dextrose 100 mls @ 5 mls/hr IVPB TITR SILVINO Last Titration: 07/04/19 09:05 Dose: 0 mcg/hr, 0 mls/hr Azithromycin (Zithromax 500mg Ivpb (Pre-Docked)) 500 mg in 250 mls @ 250 mls/ hr IVPB DAILY SILVINO Piperacillin Sod/Tazobactam (Sod 2.25 gm/ Dextrose) 50 mls @ 100 mls/hr IVPB Q8H-IV SILVINO; Protocol Last Admin: 07/04/19 02:00 Dose: 100 mls/hr Vasopressin 50 units/ Sodium (Chloride) 100 mls @ 4 mls/hr IVPB ASDIR [facility]; Protocol Last Admin: 07/03/19 22:29 Dose: 2 units/hr, 4 mls/hr Norepinephrine Bitartrate 8, (000 mcg/ Dextrose) 500 mls @ 6.01 mls/hr IV ASDIR SILVINO; Protocol Last Titration: 07/04/19 04:00 Dose: 0.03 mcg/kg/min, 7.5 mls/hr Potassium Chloride 30 meq/ (Sodium Chloride) 1,015 mls @ 125 mls/hr IVPB ASDIR [facility] Stop: 07/05/19 14:08 Insulin Aspart (Novolog Vial Sliding Scale -) 1 vial SQ Q6H [facility]; Protocol Last Admin: 07/04/19 06:18 Dose: 2 unit Mupirocin (Bactroban Ointment (For Decolonization) -) 1 applic NS BID [facility] Stop: 07/08/19 09:59 Last Admin: 07/03/19 22:28 Dose: 1 applic 89 year old woman with history of dementia, hypertension, hyperlipidemia, chronic anemia, TIA, DM wh presented with acute respirtory distress and AMS and found to have pneumonia and acute kidney injury. 1. Acute kidney injury secondary to renal hypoprofusion in setting 2. Metabolic acidosis from renal failure +/- lactic acidosis 3. Hypernatremia 4. Sepsis from PNA 5. Respiratory failure 6. Anemia Change IVF to LR at 125cc per hour as CVP is low Serum Bicarbonate improved, pH 7.3 Continue free water via NGT Continue vent support Continue empiric antibiotics Trend H/H, transfuse as per ICU protcol ICU monitoring maintain MAP > 65 Thank you Nick Humphrey DO
[2019-07-04] MEDS: LACTATED RINGERS SOLUTION 1,000 ML/1,000 ML INFUS.BAG IV SCH ×2 (09:40→16:24)
[2019-07-04] MEDS: MUPIROCIN 2% TOPICAL OINTMENT FOR DECOLONIZATION NS SCH ×2 (09:58→22:26)
[2019-07-04] MEDS: AZITHROMYCIN IVPB 500 MG/250 ML BAG IVPB SCH (09:59)
[2019-07-04] MEDS ORDERED: VANCOMYCIN 1 GRAM (PRE-DOCKED) 1,000 MG/250 ML BAG IVPB ONE (10:19)
--- NOTE | 2019-07-04 10:23 | PN ---
Physical Exam: SUBJECTIVE: Patient seen and examined. Remains intubated, sedated. R IJ CVC placed overnight. Transfused 1 U pRBC for Hgb 6.8. OBJECTIVE: Vital Signs Period Temp Pulse Resp BP Sys/[place] Pulse Ox Last 24 Hr 97.5 F-100.4 F 59-94 12-33 68-139/39-87 99 GENERAL: Sedated HEENT: R IJ central line C/D/I no signs of infection. Intubated. NGT in palce LUNGS: + Vent sounds b/l HEART: RRR S1S2 heard no mrg ABDOMEN: Soft NTND. + BS. EXTREMITIES: 2+ pulses, warm, well-perfused, no edema. Laboratory Results - last 24 hr 07/03/19 07/03/19 07/03/19 04:54 12:07 13:09 WBC RBC Hgb Hct MCV MCH MCHC RDW Plt Count MPV Absolute Neuts (auto) Neutrophils % Neutrophils % (Manual) Band Neutrophils % Lymphocytes % Lymphocytes % (Manual) Monocytes % Monocytes % (Manual) Eosinophils % Eosinophils % (Manual) Basophils % Basophils % (Manual) Myelocytes % (Man) Promyelocytes % (Man) Blast Cells % (Manual) Nucleated RBC % Metamyelocytes Hypochromia Platelet Estimate Polychromasia Poikilocytosis Anisocytosis Microcytosis Macrocytosis Tear Drop Cells [place] Cells Rouleaux Anticoagulation Therapy Puncture Site Patient Temperature ABG pH ABG pCO2 at Pt Temp ABG pO2 at Pt Temp ABG HCO3 ABG O2 Sat (Measured) ABG O2 Content ABG Base Excess Teto Test O2 Delivery Device Oxygen Flow Rate Vent Mode Vent Rate Mechanical Rate PEEP Pressure Support Vent Sodium Potassium Chloride Carbon Dioxide Anion Gap BUN Creatinine Est GFR (CKD-EPI)AfAm Est GFR (CKD-EPI)NonAf POC Glucometer 332 Random Glucose Lactic Acid Calcium Phosphorus Magnesium Total Bilirubin AST ALT Alkaline Phosphatase Creatine Kinase Creatine Kinase Index CK-MB (CK-2) Troponin I 0.64 H* Total Protein Albumin Blood Type A POSITIVE Antibody Screen Negative Crossmatch See Detail 07/03/19 07/03/19 07/03/19 13:09 13:09 13:09 WBC 6.3 RBC 3.01 L Hgb 9.0 L Hct 29.0 L MCV 96.4 H MCH 30.0 MCHC 31.1 L RDW 14.7 Plt Count 160 MPV 9.1 Absolute Neuts (auto) 4.9 Neutrophils % 77.4 Neutrophils % (Manual) 66.7 Band Neutrophils % 7.3 Lymphocytes % 17.9 D Lymphocytes % (Manual) 17.7 D Monocytes % 4.3 Monocytes % (Manual) 5 D Eosinophils % 0.1 Eosinophils % (Manual) 0.0 Basophils % 0.3 Basophils % (Manual) 0.0 Myelocytes % (Man) 0 D Promyelocytes % (Man) 0 Blast Cells % (Manual) 0 Nucleated RBC % 0 Metamyelocytes 3 H D Hypochromia 1+ Platelet Estimate Normal Polychromasia 1+ Poikilocytosis 2+ Anisocytosis 1+ Microcytosis 0 Macrocytosis 1+ Tear Drop Cells 1+ [place] Cells 1+ Rouleaux 1+ Anticoagulation Therapy Puncture Site Patient Temperature ABG pH ABG pCO2 at Pt Temp ABG pO2 at Pt Temp ABG HCO3 ABG O2 Sat (Measured) ABG O2 Content ABG Base Excess Teto Test O2 Delivery Device Oxygen Flow Rate Vent Mode Vent Rate Mechanical Rate PEEP Pressure Support Vent Sodium 158 H Potassium 3.7 Chloride 128 H Carbon Dioxide 20 L Anion Gap 10 BUN 106.2 H* Creatinine 2.5 H Est GFR (CKD-EPI)AfAm 19.10 Est GFR (CKD-EPI)NonAf 16.48 POC Glucometer Random Glucose 367 H Lactic Acid 2.5 H* Calcium 8.0 L Phosphorus 3.6 Magnesium 2.8 H Total Bilirubin 0.3 AST 37 ALT 17 Alkaline Phosphatase 80 Creatine Kinase Creatine Kinase Index CK-MB (CK-2) Troponin I Total Protein 6.2 L Albumin 2.6 L Blood Type Antibody Screen Crossmatch 07/03/19 07/03/19 07/04/19 17:50 20:29 03:50 WBC 5.3 RBC 2.27 L Hgb 6.8 L* Hct 21.2 L D MCV 93.6 MCH 30.1 MCHC 32.2 RDW 14.5 Plt Count 130 L MPV 8.7 Absolute Neuts (auto) Neutrophils % Neutrophils % (Manual) Band Neutrophils % Lymphocytes % Lymphocytes % (Manual) Monocytes % Monocytes % (Manual) Eosinophils % Eosinophils % (Manual) Basophils % Basophils % (Manual) Myelocytes % (Man) Promyelocytes % (Man) Blast Cells % (Manual) Nucleated RBC % Metamyelocytes Hypochromia Platelet Estimate Polychromasia Poikilocytosis Anisocytosis Microcytosis Macrocytosis Tear Drop Cells [place] Cells Rouleaux Anticoagulation Therapy Puncture Site Patient Temperature ABG pH ABG pCO2 at Pt Temp ABG pO2 at Pt Temp ABG HCO3 ABG O2 Sat (Measured) ABG O2 Content ABG Base Excess Teto Test O2 Delivery Device Oxygen Flow Rate Vent Mode Vent Rate Mechanical Rate PEEP Pressure Support Vent Sodium Potassium Chloride Carbon Dioxide Anion Gap BUN Creatinine Est GFR (CKD-EPI)AfAm Est GFR (CKD-EPI)NonAf POC Glucometer 219 135 Random Glucose Lactic Acid Calcium Phosphorus Magnesium Total Bilirubin AST ALT Alkaline Phosphatase Creatine Kinase Creatine Kinase Index CK-MB (CK-2) Troponin I Total Protein Albumin Blood Type Antibody Screen Crossmatch 07/04/19 07/04/19 07/04/19 03:50 05:17 05:25 WBC RBC Hgb Hct MCV MCH MCHC RDW Plt Count MPV Absolute Neuts (auto) Neutrophils % Neutrophils % (Manual) Band Neutrophils % Lymphocytes % Lymphocytes % (Manual) Monocytes % Monocytes % (Manual) Eosinophils % Eosinophils % (Manual) Basophils % Basophils % (Manual) Myelocytes % (Man) Promyelocytes % (Man) Blast Cells % (Manual) Nucleated RBC % Metamyelocytes Hypochromia Platelet Estimate Polychromasia Poikilocytosis Anisocytosis Microcytosis Macrocytosis Tear Drop Cells [place] Cells Rouleaux Anticoagulation Therapy Puncture Site Patient Temperature ABG pH ABG pCO2 at Pt Temp ABG pO2 at Pt Temp ABG HCO3 ABG O2 Sat (Measured) ABG O2 Content ABG Base Excess Teto Test O2 Delivery Device Oxygen Flow Rate Vent Mode Vent Rate Mechanical Rate PEEP Pressure Support Vent Sodium 152 H Potassium 3.3 L Chloride 123 H Carbon Dioxide 18 L Anion Gap 11 BUN 78.1 H Creatinine 1.6 H Est GFR (CKD-EPI)AfAm 32.77 Est GFR (CKD-EPI)NonAf 28.27 POC Glucometer 176 Random Glucose 176 H Lactic Acid 2.8 H* Calcium 7.4 L Phosphorus 3.0 Magnesium 2.1 Total Bilirubin AST ALT Alkaline Phosphatase Creatine Kinase Creatine Kinase Index CK-MB (CK-2) Troponin I 0.28 H Total Protein Albumin Blood Type Antibody Screen Crossmatch 07/04/19 07/04/19 07/04/19 05:50 06:00 06:50 WBC RBC Hgb Hct MCV MCH MCHC RDW Plt Count MPV Absolute Neuts (auto) Neutrophils % Neutrophils % (Manual) Band Neutrophils % Lymphocytes % Lymphocytes % (Manual) Monocytes % Monocytes % (Manual) Eosinophils % Eosinophils % (Manual) Basophils % Basophils % (Manual) Myelocytes % (Man) Promyelocytes % (Man) Blast Cells % (Manual) Nucleated RBC % Metamyelocytes Hypochromia Platelet Estimate Polychromasia Poikilocytosis Anisocytosis Microcytosis Macrocytosis Tear Drop Cells [place] Cells Rouleaux Anticoagulation Therapy Cancelled No Result Required. Puncture Site Cancelled Right brachial Patient Temperature Cancelled ABG pH Cancelled 7.37 ABG pCO2 at Pt Temp Cancelled 30.1 L ABG pO2 at Pt Temp Cancelled 132 H ABG HCO3 Cancelled 17.0 L ABG O2 Sat (Measured) Cancelled 98.1 H ABG O2 Content Cancelled 30.1 ABG Base Excess Cancelled -6.9 L Teto Test Cancelled Positive O2 Delivery Device Cancelled A/c Oxygen Flow Rate Cancelled 50% Vent Mode Cancelled No Result Required. Vent Rate Cancelled No Result Required. Mechanical Rate Cancelled No Result Required. PEEP Cancelled 5.0 Pressure Support Vent Cancelled 450 Sodium Potassium Chloride Carbon Dioxide Anion Gap BUN Creatinine Est GFR (CKD-EPI)AfAm Est GFR (CKD-EPI)NonAf POC Glucometer Random Glucose Lactic Acid Calcium Phosphorus Magnesium Total Bilirubin AST ALT Alkaline Phosphatase Creatine Kinase 498 H Creatine Kinase Index 0.8 CK-MB (CK-2) 4.0 H Troponin I Total Protein Albumin Blood Type Antibody Screen Crossmatch Active Medications Generic Name Dose Route Start Last Admin Trade Name Freq PRN Reason Stop Dose Admin Chlorhexidine Gluconate 1 applic 07/03/19 22:00 07/03/19 22:29 Hibiclens For Decolonization - TP 1 applic HS SILVINO Administration Heparin Sodium (Porcine) 5,000 unit 07/03/19 06:00 07/03/19 22:29 Heparin - SQ 5,000 unit TID SILVINO Administration Fentanyl 500 mcg/ Dextrose 100 mls @ 5 mls/hr 07/03/19 03:30 07/04/19 09:05 IVPB 0 mcg/hr TITR SILVINO 0 mls/hr Titration 25 MCG/HR Azithromycin 500 mg in 250 mls @ 250 mls/hr 07/04/19 10:00 Zithromax 500mg Ivpb (Pre-Docked) IVPB DAILY SILVINO Piperacillin Sod/Tazobactam 50 mls @ 100 mls/hr 07/03/19 18:00 07/04/19 02:00 Sod 2.25 gm/ Dextrose IVPB 100 mls/hr Q8H-IV SILVINO Administration Protocol Vasopressin 50 units/ Sodium 100 mls @ 4 mls/hr 07/03/19 22:00 07/03/19 22:29 Chloride IVPB 2 units/hr ASDIR SILVINO 4 mls/hr Administration Protocol 2 UNITS/HR Norepinephrine Bitartrate 8, 500 mls @ 6.01 mls/hr 07/04/19 01:00 07/04/19 04 :00 000 mcg/ Dextrose IV 0.03 mcg/kg/min ASDIR SILVINO 7.5 mls/hr Titration Protocol 0.03 MCG/KG/MIN Lactated Ringer's 1,000 ml in 1,000 mls @ 125 mls/hr 07/04/19 09:45 Lactated Ringers Solution IV ASDIR SILVINO Insulin Aspart 1 vial 07/04/19 00:30 07/04/19 06:18 Novolog Vial Sliding Scale - SQ 2 unit Q6H SILVINO Administration Protocol Mupirocin 1 applic 07/03/19 10:00 07/03/19 22:28 Bactroban Ointment (For Decolonization) - NS 07/08/19 09:59 1 applic BID SILVINO Administration ASSESSMENT/PLAN: 89 y.o. F PMH TIA, anemia, dementia, HTN, NIDDM, HLD presenting for respiratory failure w/ sepsis 2/2 bacteremia & UTI. 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 nonverbal @ baseline #CV -tropinemia resolving -EKG on adm: sinus tachy. T inversions & depressions, prolonged qtc 505-- s/p 2mg Mg w/ improvement to 480s. Recent EKG NSR -hypotension resolved s/p CVC placement, 2 pressors (levo, vaso) -Restart metoprolol and quinapril as BP tolerates, resume atorvastatin once clinically stable -Echo pending -Cardio following (Dr. Linton) -monitor vitals closely #Pulm -intubated 2/2 acute hypoxic respiratory failure -FiO2 decreased to 40% this morning -Chest x-ray shows clear lung upper lobes, possible infiltrate in the left lower lobe, minimal improvement -Empiric zosyn & zithromax; s/p 1 dose vanc last night -F/u legionella & S. pneumo ag #Heme -Hgb 6.8; s/p 1U pRBC -F/u repeat CBC today -trend H&H transfuse prn #Renal -moreira in place monitor outputs -uremia; trend BUN/cr -c/w fluids now LR @125cc/hr -C/w free water via NGT 300mL q8h -Nephro following (Dr. Humphrey) #ID -gm + cocci bacteremia -- f/u final organism & sensitivities -+ enterococcal UTI -C/w Azithromycin + zosyn; s/p vanc 1 dose last night -ID following # -+UA: 3+ LE, + nitrites, pH 8.5 -Urine culture 07/03/19 + prelim Enterococcus -S/p stat dose vanc-- f/u ID recs #PPX -holding heparin 2/2 hgb 6.8-- f/u repeat cbc; SCDs #FEN -LR @125mL/hr +free water 300 cc Q8H -trend bmp replete prn -NPO #Dispo Continue ICU monitoring. Visit type - Emergency Visit Emergency Visit: No - New Patient This patient is new to me today: No - Critical Care Critical Care patient: Yes Total Critical Care Time (in minutes): 36 Critical Care Statement: The care of this patient involved high complexity decision making to prevent further life threatening deterioration of the patient 's condition and/or to evaluate & treat vital organ system(s) failure or risk of failure. ATTENDING PHYSICIAN STATEMENT I saw and evaluated the patient. I reviewed the resident's note and discussed the case with the resident. I agree with the resident's findings and plan as documented. SUBJECTIVE: OBJECTIVE: ASSESSMENT AND PLAN:
--- NOTE | 2019-07-04 10:27 | PN ---
Progress Note, Physician History of Present Illness: REMAINS INTUBATED HYPOTENSIVE NOW ON PRESSORS + BC GPCCL X 1 RENAL FUNCTION IMPROVED - Current Medication List Current Medications: Active Medications Chlorhexidine Gluconate (Hibiclens For Decolonization -) 1 applic TP HS SILVINO Last Admin: 07/03/19 22:29 Dose: 1 applic Heparin Sodium (Porcine) (Heparin -) 5,000 unit SQ TID SILVINO Last Admin: 07/03/19 22:29 Dose: 5,000 unit Fentanyl 500 mcg/ Dextrose 100 mls @ 5 mls/hr IVPB TITR SILVINO Last Titration: 07/04/19 09:05 Dose: 0 mcg/hr, 0 mls/hr Azithromycin (Zithromax 500mg Ivpb (Pre-Docked)) 500 mg in 250 mls @ 250 mls/ hr IVPB DAILY SILVINO Last Admin: 07/04/19 09:59 Dose: 250 mls/hr Piperacillin Sod/Tazobactam (Sod 2.25 gm/ Dextrose) 50 mls @ 100 mls/hr IVPB Q8H-IV SILVINO; Protocol Last Admin: 07/04/19 09:40 Dose: 100 mls/hr Vasopressin 50 units/ Sodium (Chloride) 100 mls @ 4 mls/hr IVPB ASDIR SILVINO; Protocol Last Admin: 07/03/19 22:29 Dose: 2 units/hr, 4 mls/hr Norepinephrine Bitartrate 8, (000 mcg/ Dextrose) 500 mls @ 6.01 mls/hr IV ASDIR SILVINO; Protocol Last Titration: 07/04/19 04:00 Dose: 0.03 mcg/kg/min, 7.5 mls/hr Lactated Ringer's (Lactated Ringers Solution) 1,000 ml in 1,000 mls @ 125 mls/ hr IV ASDIR SILVINO Last Admin: 07/04/19 09:40 Dose: 125 mls/hr Vancomycin HCl 1,000 mg/ (Dextrose) 250 mls @ 166.667 mls/hr IVPB ONCE ONE; Protocol Stop: 07/04/19 11:48 Insulin Aspart (Novolog Vial Sliding Scale -) 1 vial SQ Q6H SILVINO; Protocol Last Admin: 07/04/19 06:18 Dose: 2 unit Mupirocin (Bactroban Ointment (For Decolonization) -) 1 applic NS BID SILVINO Stop: 07/08/19 09:59 Last Admin: 07/04/19 09:58 Dose: 1 applic - Objective Vital Signs: Vital Signs Temperature 98.7 F 07/04/19 10:00 Pulse Rate 78 07/04/19 10:00 Respiratory Rate 15 07/04/19 10:00 Blood Pressure 142/64 07/04/19 10:00 O2 Sat by Pulse Oximetry (%) 99 07/03/19 21:00 Constitutional: Yes: No Distress Eyes: Yes: Conjunctiva Clear Cardiovascular: Yes: Regular Rate and Rhythm, S1, S2 Respiratory: Yes: Mechanically Ventilated Gastrointestinal: Yes: Normal Bowel Sounds, Soft. No: Tenderness Edema: Yes Edema: LUE: 1+, RUE: 1+, LLE: 1+, RLE: 1+ Labs: CBC, BMP 07/04/19 03:50 07/04/19 03:50 INR, PTT INR 1.65 (0.83-1.09) H 07/03/19 01:04 Assessment/Plan ACUTE RESPIRATORY FAILURE LLL PNEUMONIA SEPSIS/SEPTIC SHOCK +BC ? SIGNIFICANCE UTI LACTIC ACIDOSIS RENAL FAILURE IMPROVED ANEMIA THROMBOCYTOPENIA ? SECONDARY TO SEPSIS HYPERNATREMIA CONTINUE HEMODYNAMIC/VENTILATORY SUPPORT CONTINUE ZOSYN/ ZITHROMAX AWAIT BC REPEAT BC OBTAINED REDOSE VANCOMYCIN CHECK LEVEL AM CRITICAL CARE TIME 35MIN
--- NOTE | 2019-07-04 10:53 | PN ---
Progress Note, Physician Chief Complaint: Remains on mechanical ventilation support History of Present Illness: Patient was seen and examined. Remains intubated in ICU. Chart was reviewed Currently on pressor support - Current Medication List Current Medications: Active Medications Chlorhexidine Gluconate (Hibiclens For Decolonization -) 1 applic TP HS SILVINO Last Admin: 07/03/19 22:29 Dose: 1 applic Heparin Sodium (Porcine) (Heparin -) 5,000 unit SQ TID SILVINO Last Admin: 07/03/19 22:29 Dose: 5,000 unit Fentanyl 500 mcg/ Dextrose 100 mls @ 5 mls/hr IVPB TITR SILVINO Last Titration: 07/04/19 09:05 Dose: 0 mcg/hr, 0 mls/hr Azithromycin (Zithromax 500mg Ivpb (Pre-Docked)) 500 mg in 250 mls @ 250 mls/ hr IVPB DAILY SILVINO Last Admin: 07/04/19 09:59 Dose: 250 mls/hr Piperacillin Sod/Tazobactam (Sod 2.25 gm/ Dextrose) 50 mls @ 100 mls/hr IVPB Q8H-IV SILVINO; Protocol Last Admin: 07/04/19 09:40 Dose: 100 mls/hr Vasopressin 50 units/ Sodium (Chloride) 100 mls @ 4 mls/hr IVPB ASDIR SILVINO; Protocol Last Admin: 07/03/19 22:29 Dose: 2 units/hr, 4 mls/hr Norepinephrine Bitartrate 8, (000 mcg/ Dextrose) 500 mls @ 6.01 mls/hr IV ASDIR SILVINO; Protocol Last Titration: 07/04/19 10:00 Dose: 0 mcg/kg/min, 0 mls/hr Lactated Ringer's (Lactated Ringers Solution) 1,000 ml in 1,000 mls @ 125 mls/ hr IV ASDIR SILVINO Last Admin: 07/04/19 09:40 Dose: 125 mls/hr Vancomycin HCl (Vancomycin (Pre-Docked)) 1,000 mg in 250 mls @ 166.667 mls/hr IVPB ONCE ONE; Protocol Stop: 07/04/19 11:48 Insulin Aspart (Novolog Vial Sliding Scale -) 1 vial SQ Q6H SILVINO; Protocol Last Admin: 07/04/19 06:18 Dose: 2 unit Mupirocin (Bactroban Ointment (For Decolonization) -) 1 applic NS BID SILVINO Stop: 07/08/19 09:59 Last Admin: 07/04/19 09:58 Dose: 1 applic - Objective Vital Signs: Vital Signs Temperature 98.7 F 07/04/19 10:00 Pulse Rate 80 07/04/19 10:00 Respiratory Rate 15 07/04/19 10:00 Blood Pressure 146/60 07/04/19 10:00 O2 Sat by Pulse Oximetry (%) 99 07/03/19 21:00 Cardiovascular: Yes: Regular Rate and Rhythm, S1, S2 Respiratory: Yes: Mechanically Ventilated Gastrointestinal: Yes: Normal Bowel Sounds, Soft. No: Tenderness Edema: No Labs: CBC, BMP 07/04/19 03:50 07/04/19 03:50 INR, PTT INR 1.65 (0.83-1.09) H 07/03/19 01:04 Problem List - Problems (1) Hypercholesterolemia Code(s): E78.00 - PURE HYPERCHOLESTEROLEMIA, UNSPECIFIED (2) JELANI (acute kidney injury) Code(s): N17.9 - ACUTE KIDNEY FAILURE, UNSPECIFIED (3) Acute urinary tract infection Code(s): N39.0 - URINARY TRACT INFECTION, SITE NOT SPECIFIED (4) Dementia Code(s): F03.90 - UNSPECIFIED DEMENTIA WITHOUT BEHAVIORAL DISTURBANCE (5) Generalized weakness Code(s): R53.1 - WEAKNESS (6) Hypertension Code(s): I10 - ESSENTIAL (PRIMARY) HYPERTENSION (7) Anemia Code(s): D64.9 - ANEMIA, UNSPECIFIED (8) Diabetes Code(s): E11.9 - TYPE 2 DIABETES MELLITUS WITHOUT COMPLICATIONS Qualifiers: Diabetes mellitus complication status: without complication (9) NSTEMI (non-ST elevated myocardial infarction) Code(s): I21.4 - NON-ST ELEVATION (NSTEMI) MYOCARDIAL INFARCTION (10) Respiratory failure Code(s): J96.90 - RESPIRATORY FAILURE, UNSP, UNSP W HYPOXIA OR HYPERCAPNIA Qualifiers: Chronicity: acute Respiratory failure complication: hypoxia Qualified Code(s): J96.01 - Acute respiratory failure with hypoxia Assessment/Plan 1. Respiratory failure s/p intubation on mechanical ventilation 2. History of HTN currently on pressor support for hypotension 3. Hypercholesterolemia 4. Hypothyoidism 5. NIDDM 6. Cerebrovascular disease 7. Organic brain/dementia 8. Septic shock PLAN: 1. Vent management 2. Pressor support. Wean as tolerated 3. Antibiotic coverage 4. DVT prophylaxis 5. Trend troponin and document peak 6. Echocardiography to assess LV/RV and valvular function 7. Restart Metoprolol and Quinapril as BP tolerates and clinically feasible 8. Resume Atorvastatin when able to Further plans are to follow Saad Linton MD
[2019-07-04 13:28] LABS: HEMATOCRIT 25.8 % (32.4-45.2); HEMOGLOBIN 8.4 GM/dL (10.7-15.3); MCH 29.7 pg (25.7-33.7); MCHC 32.5 g/dl (32.0-36.0); MEAN CELL VOLUME 91.2 fl (80-96); MEAN PLT VOLUME 8.9 fl (7.5-11.1); PLATELET COUNT 133 K/MM3 (134-434); RBC 2.82 M/mm3 (3.60-5.2); RDW 15.2 % (11.6-15.6); WHITE BLOOD COUNT 6.5 K/mm3 (4.0-10.0)
--- NOTE | 2019-07-04 16:59 | EKG ---
Test Reason : Blood Pressure : / mmHG Vent. Rate : 061 BPM Atrial Rate : 061 BPM P-R Int : 148 ms QRS Dur : 100 ms QT Int : 444 ms P-R-T Axes : 049 002 035 degrees QTc Int : 446 ms SINUS RHYTHM WITH MARKED SINUS ARRHYTHMIA OTHERWISE NORMAL ECG WHEN COMPARED WITH ECG OF 03-JUL-2019 05:46, T WAVE VARIATION Confirmed by LULI NAVAS MD [id number]) on 07/04/2019 4:59:25 PM Referred By: [facility] Confirmed By:LULI NAVAS MD
--- NOTE | 2019-07-04 21:01 | PN ---
Physical Exam: 89 F h/o chronic anemia, chondrocalcinosis, HTN, dementia, HLD, Rectal prolapse (s/p repair), Hypothyroidism and NIDDM who was BIBEMS for respiratory failure. Patient intubated and mechanically ventilated due to acute hypoxic respiratory failure due to LLL CAP and urosepsis. Patient remains on ventilator support. Oxygenation improved on 14RR, 40% FiO2, 5 Peep, 450mL VT. Off pressors. GA: intubated, sedated, responds to pain HEAD: Normal with no signs of trauma EYES: Pupils equal, round and reactive to light NECK: no JVD, trachea midline LUNGS: decreased BS at bases, air entry+ b/l HEART: S1, S2+, no audible S3, RRR ABDOMEN: Soft, nontender, not distended, normoactive bowel sounds.. UPPER EXTREMITIES: 2+ pulses, warm, well-perfused. No cyanosis. No clubbing. Cap refill <2 seconds. No peripheral edema. 5cm skin tear on left tricep LOWER EXTREMITIES: 2+ pulses, warm, well-perfused. trace edema NEUROLOGICAL: responds to pain and touch SKIN: Warm, dry, normal turgor, no rashes or lesions noted. 5cm skin tear on left tricep Vital Signs - 24 hr 07/03/19 07/03/19 07/03/19 21:30 21:45 22:00 Temperature 99.7 F H Pulse Rate 86 79 79 Respiratory 14 12 20 Rate Blood Pressure 84/47 L 68/42 L 68/39 L 07/03/19 07/03/19 07/03/19 22:29 22:30 23:54 Temperature Pulse Rate 69 68 Respiratory 15 20 Rate Blood Pressure 89/52 L 89/52 L 07/04/19 07/04/19 07/04/19 00:00 01:00 02:00 Temperature 98.3 F Pulse Rate 62 64 59 L Respiratory 14 14 Rate Blood Pressure 115/52 L 111/48 L 137/85 07/04/19 07/04/19 07/04/19 03:00 04:00 06:00 Temperature 97.9 F 97.8 F Pulse Rate 62 76 Respiratory 17 14 15 Rate Blood Pressure 101/48 L 139/63 07/04/19 07/04/19 07/04/19 06:30 08:00 08:11 Temperature 98.4 F Pulse Rate 66 Respiratory 18 24 H 17 Rate Blood Pressure 110/55 L 07/04/19 07/04/19 07/04/19 09:00 10:00 12:00 Temperature 98.7 F Pulse Rate 70 78 79 Respiratory 12 15 26 H Rate Blood Pressure 107/53 L 142/64 132/62 07/04/19 07/04/19 07/04/19 14:00 16:00 17:08 Temperature 99.2 F 99.1 F Pulse Rate 83 76 Respiratory 18 22 H 19 Rate Blood Pressure 133/75 116/55 L 07/04/19 18:00 Temperature 99.2 F Pulse Rate 78 Respiratory 20 Rate Blood Pressure 107/59 L Laboratory Tests 07/03/19 07/03/19 07/03/19 01:01 01:02 01:04 WBC RBC Hgb Hct MCV MCH MCHC RDW Plt Count MPV Absolute Neuts (auto) Neutrophils % Neutrophils % (Manual) Band Neutrophils % Lymphocytes % Lymphocytes % (Manual) Monocytes % Monocytes % (Manual) Eosinophils % Eosinophils % (Manual) Basophils % Basophils % (Manual) Myelocytes % (Man) Promyelocytes % (Man) Blast Cells % (Manual) Nucleated RBC % Metamyelocytes Hypochromia Platelet Estimate Polychromasia Poikilocytosis Anisocytosis Microcytosis Macrocytosis Tear Drop Cells [place] Cells Rouleaux PT with INR 19.60 H INR 1.65 H PTT (Actin FS) 34.8 Anticoagulation Therapy Puncture Site Patient Temperature ABG pH ABG pCO2 at Pt Temp ABG pO2 at Pt Temp ABG HCO3 ABG O2 Sat (Measured) ABG O2 Content ABG Base Excess Teto Test VBG pH POC VBG pCO2 POC VBG pO2 VBG HCO3 VBG O2 Sat (Brando) VBG Base Excess Carboxyhemoglobin Methemoglobin O2 Delivery Device Oxygen Flow Rate Vent Mode Vent Rate Mechanical Rate PEEP Pressure Support Vent Sodium Potassium Chloride Carbon Dioxide Anion Gap BUN Creatinine Est GFR (CKD-EPI)AfAm Est GFR (CKD-EPI)NonAf POC Glucometer 308 Random Glucose Lactic Acid 3.0 H* Calcium Phosphorus Magnesium Total Bilirubin AST ALT Alkaline Phosphatase Creatine Kinase Creatine Kinase Index CK-MB (CK-2) Troponin I Total Protein Albumin Urine Color Urine Appearance Urine pH Ur Specific [place] Urine Protein Urine Glucose (UA) Urine Ketones Urine Blood Urine Nitrite Urine Bilirubin Urine Urobilinogen Ur Leukocyte Esterase Urine WBC (Auto) Urine RBC (Auto) Urine Casts (Auto) U Epithel Cells (Auto) Urine Bacteria (Auto) Urine Yeast (Auto) Influenza A (Rapid) Influenza B (Rapid) Blood Type Antibody Screen Crossmatch 07/03/19 07/03/19 07/03/19 01:06 01:15 01:20 WBC 5.3 RBC 2.81 L Hgb 8.3 L Hct 27.3 L MCV 96.9 H MCH 29.6 MCHC 30.6 L RDW 15.0 D Plt Count 184 D MPV 9.1 D Absolute Neuts (auto) 4.6 Neutrophils % 85.5 H D Neutrophils % (Manual) 58.0 Band Neutrophils % 29.0 Lymphocytes % 8.2 D Lymphocytes % (Manual) 5.0 L Monocytes % 6.0 Monocytes % (Manual) 1 L Eosinophils % 0.1 D Eosinophils % (Manual) 0.0 Basophils % 0.2 Basophils % (Manual) 0.0 Myelocytes % (Man) 6 H Promyelocytes % (Man) 0 Blast Cells % (Manual) 0 Nucleated RBC % 0 Metamyelocytes 1 Hypochromia 0 Platelet Estimate Normal Polychromasia 0 Poikilocytosis 2+ Anisocytosis 2+ Microcytosis 3+ Macrocytosis 0 Tear Drop Cells [place] Cells Rouleaux PT with INR INR PTT (Actin FS) Anticoagulation Therapy No Result Required. Puncture Site Right brachial Patient Temperature ABG pH 7.28 L ABG pCO2 at Pt Temp 33.5 L ABG pO2 at Pt Temp 172 H ABG HCO3 15.4 L ABG O2 Sat (Measured) 98.4 H ABG O2 Content 19.3 ABG Base Excess -10.0 L Teto Test Positive VBG pH POC VBG pCO2 POC VBG pO2 VBG HCO3 VBG O2 Sat (Brando) VBG Base Excess Carboxyhemoglobin 0.5 Methemoglobin < 1.0 O2 Delivery Device Vent Oxygen Flow Rate Yes Vent Mode No Result Required. Vent Rate 14 Mechanical Rate No Result Required. PEEP Pressure Support Vent No Result Required. Sodium Potassium Chloride Carbon Dioxide Anion Gap BUN Creatinine Est GFR (CKD-EPI)AfAm Est GFR (CKD-EPI)NonAf POC Glucometer Random Glucose Lactic Acid Calcium Phosphorus Magnesium Total Bilirubin AST ALT Alkaline Phosphatase Creatine Kinase Creatine Kinase Index CK-MB (CK-2) Troponin I 1.11 H* Total Protein Albumin Urine Color Urine Appearance Urine pH Ur Specific [place] Urine Protein Urine Glucose (UA) Urine Ketones Urine Blood Urine Nitrite Urine Bilirubin Urine Urobilinogen Ur Leukocyte Esterase Urine WBC (Auto) Urine RBC (Auto) Urine Casts (Auto) U Epithel Cells (Auto) Urine Bacteria (Auto) Urine Yeast (Auto) Influenza A (Rapid) Influenza B (Rapid) Blood Type Antibody Screen Crossmatch 07/03/19 07/03/19 07/03/19 01:20 01:20 01:28 WBC RBC Hgb Hct MCV MCH MCHC RDW Plt Count MPV Absolute Neuts (auto) Neutrophils % Neutrophils % (Manual) Band Neutrophils % Lymphocytes % Lymphocytes % (Manual) Monocytes % Monocytes % (Manual) Eosinophils % Eosinophils % (Manual) Basophils % Basophils % (Manual) Myelocytes % (Man) Promyelocytes % (Man) Blast Cells % (Manual) Nucleated RBC % Metamyelocytes Hypochromia Platelet Estimate Polychromasia Poikilocytosis Anisocytosis Microcytosis Macrocytosis Tear Drop Cells [place] Cells Rouleaux PT with INR INR PTT (Actin FS) Anticoagulation Therapy Puncture Site Patient Temperature ABG pH ABG pCO2 at Pt Temp ABG pO2 at Pt Temp ABG HCO3 ABG O2 Sat (Measured) ABG O2 Content ABG Base Excess Teto Test VBG pH 7.25 L POC VBG pCO2 38.7 POC VBG pO2 < 49 H VBG HCO3 16.5 L VBG O2 Sat (Brando) 73.3 VBG Base Excess -9.5 L Carboxyhemoglobin Methemoglobin O2 Delivery Device Oxygen Flow Rate Vent Mode Vent Rate Mechanical Rate PEEP Pressure Support Vent Sodium 158 H Potassium 4.6 Chloride 131 H Carbon Dioxide 16 L Anion Gap 11 BUN 113.4 H* Creatinine 3.0 H Est GFR (CKD-EPI)AfAm 15.33 Est GFR (CKD-EPI)NonAf 13.22 POC Glucometer Random Glucose 307 H Lactic Acid Calcium 8.4 L Phosphorus Magnesium Total Bilirubin 0.3 AST 32 ALT 15 Alkaline Phosphatase 70 Creatine Kinase 685 H Creatine Kinase Index 0.3 CK-MB (CK-2) 2.4 2.6 Troponin I Total Protein 6.1 L Albumin 2.6 L Urine Color Urine Appearance Urine pH Ur Specific [place] Urine Protein Urine Glucose (UA) Urine Ketones Urine Blood Urine Nitrite Urine Bilirubin Urine Urobilinogen Ur Leukocyte Esterase Urine WBC (Auto) Urine RBC (Auto) Urine Casts (Auto) U Epithel Cells (Auto) Urine Bacteria (Auto) Urine Yeast (Auto) Influenza A (Rapid) Influenza B (Rapid) Blood Type Antibody Screen Crossmatch 07/03/19 07/03/19 07/03/19 02:14 02:15 04:44 WBC RBC Hgb Hct MCV MCH MCHC RDW Plt Count MPV Absolute Neuts (auto) Neutrophils % Neutrophils % (Manual) Band Neutrophils % Lymphocytes % Lymphocytes % (Manual) Monocytes % Monocytes % (Manual) Eosinophils % Eosinophils % (Manual) Basophils % Basophils % (Manual) Myelocytes % (Man) Promyelocytes % (Man) Blast Cells % (Manual) Nucleated RBC % Metamyelocytes Hypochromia Platelet Estimate Polychromasia Poikilocytosis Anisocytosis Microcytosis Macrocytosis Tear Drop Cells Anai Cells Rouleaux PT with INR INR PTT (Actin FS) Anticoagulation Therapy Puncture Site Patient Temperature ABG pH ABG pCO2 at Pt Temp ABG pO2 at Pt Temp ABG HCO3 ABG O2 Sat (Measured) ABG O2 Content ABG Base Excess Teto Test VBG pH POC VBG pCO2 POC VBG pO2 VBG HCO3 VBG O2 Sat (Brando) VBG Base Excess Carboxyhemoglobin Methemoglobin O2 Delivery Device Oxygen Flow Rate Vent Mode Vent Rate Mechanical Rate PEEP Pressure Support Vent Sodium Potassium Chloride Carbon Dioxide Anion Gap BUN Creatinine Est GFR (CKD-EPI)AfAm Est GFR (CKD-EPI)NonAf POC Glucometer Random Glucose Lactic Acid 1.4 Calcium Phosphorus Magnesium Total Bilirubin AST ALT Alkaline Phosphatase Creatine Kinase Creatine Kinase Index CK-MB (CK-2) Troponin I Total Protein Albumin Urine Color Other Urine Appearance Turbid Urine pH 8.5 H D Ur Specific [place] 1.017 Urine Protein 1+ H Urine Glucose (UA) Negative Urine Ketones Negative Urine Blood Negative Urine Nitrite Positive H Urine Bilirubin Negative Urine Urobilinogen 0.2 Ur Leukocyte Esterase 3+ H Urine WBC (Auto) 36 Urine RBC (Auto) 1 Urine Casts (Auto) 16 U Epithel Cells (Auto) 1.0 Urine Bacteria (Auto) 165.1 Urine Yeast (Auto) None seen Influenza A (Rapid) Negative Influenza B (Rapid) Negative Blood Type Antibody Screen Crossmatch 07/03/19 07/03/19 07/03/19 04:54 04:54 07:19 WBC RBC Hgb Hct MCV MCH MCHC RDW Plt Count MPV Absolute Neuts (auto) Neutrophils % Neutrophils % (Manual) Band Neutrophils % Lymphocytes % Lymphocytes % (Manual) Monocytes % Monocytes % (Manual) Eosinophils % Eosinophils % (Manual) Basophils % Basophils % (Manual) Myelocytes % (Man) Promyelocytes % (Man) Blast Cells % (Manual) Nucleated RBC % Metamyelocytes Hypochromia Platelet Estimate Polychromasia Poikilocytosis Anisocytosis Microcytosis Macrocytosis Tear Drop Cells [place] Cells Rouleaux PT with INR INR PTT (Actin FS) Anticoagulation Therapy Puncture Site Patient Temperature ABG pH ABG pCO2 at Pt Temp ABG pO2 at Pt Temp ABG HCO3 ABG O2 Sat (Measured) ABG O2 Content ABG Base Excess Teto Test VBG pH POC VBG pCO2 POC VBG pO2 VBG HCO3 VBG O2 Sat (Brando) VBG Base Excess Carboxyhemoglobin Methemoglobin O2 Delivery Device Oxygen Flow Rate Vent Mode Vent Rate Mechanical Rate PEEP Pressure Support Vent Sodium Potassium Chloride Carbon Dioxide Anion Gap BUN Creatinine Est GFR (CKD-EPI)AfAm Est GFR (CKD-EPI)NonAf POC Glucometer 343 Random Glucose Lactic Acid Calcium Phosphorus Magnesium Total Bilirubin AST ALT Alkaline Phosphatase Creatine Kinase 803 H Creatine Kinase Index 0.4 CK-MB (CK-2) 3.5 Troponin I 1.10 H* Total Protein Albumin Urine Color Urine Appearance Urine pH Ur Specific [place] Urine Protein Urine Glucose (UA) Urine Ketones Urine Blood Urine Nitrite Urine Bilirubin Urine Urobilinogen Ur Leukocyte Esterase Urine WBC (Auto) Urine RBC (Auto) Urine Casts (Auto) U Epithel Cells (Auto) Urine Bacteria (Auto) Urine Yeast (Auto) Influenza A (Rapid) Influenza B (Rapid) Blood Type A POSITIVE Antibody Screen Negative Crossmatch See Detail 07/03/19 07/03/19 07/03/19 12:07 13:09 13:09 WBC RBC Hgb Hct MCV MCH MCHC RDW Plt Count MPV Absolute Neuts (auto) Neutrophils % Neutrophils % (Manual) Band Neutrophils % Lymphocytes % Lymphocytes % (Manual) Monocytes % Monocytes % (Manual) Eosinophils % Eosinophils % (Manual) Basophils % Basophils % (Manual) Myelocytes % (Man) Promyelocytes % (Man) Blast Cells % (Manual) Nucleated RBC % Metamyelocytes Hypochromia Platelet Estimate Polychromasia Poikilocytosis Anisocytosis Microcytosis Macrocytosis Tear Drop Cells [place]ai Cells Rouleaux PT with INR INR PTT (Actin FS) Anticoagulation Therapy Puncture Site Patient Temperature ABG pH ABG pCO2 at Pt Temp ABG pO2 at Pt Temp ABG HCO3 ABG O2 Sat (Measured) ABG O2 Content ABG Base Excess Teto Test VBG pH POC VBG pCO2 POC VBG pO2 VBG HCO3 VBG O2 Sat (Brando) VBG Base Excess Carboxyhemoglobin Methemoglobin O2 Delivery Device Oxygen Flow Rate Vent Mode Vent Rate Mechanical Rate PEEP Pressure Support Vent Sodium Potassium Chloride Carbon Dioxide Anion Gap BUN Creatinine Est GFR (CKD-EPI)AfAm Est GFR (CKD-EPI)NonAf POC Glucometer 332 Random Glucose Lactic Acid 2.5 H* Calcium Phosphorus Magnesium Total Bilirubin AST ALT Alkaline Phosphatase Creatine Kinase Creatine Kinase Index CK-MB (CK-2) Troponin I 0.64 H* Total Protein Albumin Urine Color Urine Appearance Urine pH Ur Specific [place] Urine Protein Urine Glucose (UA) Urine Ketones Urine Blood Urine Nitrite Urine Bilirubin Urine Urobilinogen Ur Leukocyte Esterase Urine WBC (Auto) Urine RBC (Auto) Urine Casts (Auto) U Epithel Cells (Auto) Urine Bacteria (Auto) Urine Yeast (Auto) Influenza A (Rapid) Influenza B (Rapid) Blood Type Antibody Screen Crossmatch 07/03/19 07/03/19 07/03/19 13:09 13:09 17:50 WBC 6.3 RBC 3.01 L Hgb 9.0 L Hct 29.0 L MCV 96.4 H MCH 30.0 MCHC 31.1 L RDW 14.7 Plt Count 160 MPV 9.1 Absolute Neuts (auto) 4.9 Neutrophils % 77.4 Neutrophils % (Manual) 66.7 Band Neutrophils % 7.3 Lymphocytes % 17.9 D Lymphocytes % (Manual) 17.7 D Monocytes % 4.3 Monocytes % (Manual) 5 D Eosinophils % 0.1 Eosinophils % (Manual) 0.0 Basophils % 0.3 Basophils % (Manual) 0.0 Myelocytes % (Man) 0 D Promyelocytes % (Man) 0 Blast Cells % (Manual) 0 Nucleated RBC % 0 Metamyelocytes 3 H D Hypochromia 1+ Platelet Estimate Normal Polychromasia 1+ Poikilocytosis 2+ Anisocytosis 1+ Microcytosis 0 Macrocytosis 1+ Tear Drop Cells 1+ [place] Cells 1+ Rouleaux 1+ PT with INR INR PTT (Actin FS) Anticoagulation Therapy Puncture Site Patient Temperature ABG pH ABG pCO2 at Pt Temp ABG pO2 at Pt Temp ABG HCO3 ABG O2 Sat (Measured) ABG O2 Content ABG Base Excess Teto Test VBG pH POC VBG pCO2 POC VBG pO2 VBG HCO3 VBG O2 Sat (Brando) VBG Base Excess Carboxyhemoglobin Methemoglobin O2 Delivery Device Oxygen Flow Rate Vent Mode Vent Rate Mechanical Rate PEEP Pressure Support Vent Sodium 158 H Potassium 3.7 Chloride 128 H Carbon Dioxide 20 L Anion Gap 10 BUN 106.2 H* Creatinine 2.5 H Est GFR (CKD-EPI)AfAm 19.10 Est GFR (CKD-EPI)NonAf 16.48 POC Glucometer 219 Random Glucose 367 H Lactic Acid Calcium 8.0 L Phosphorus 3.6 Magnesium 2.8 H Total Bilirubin 0.3 AST 37 ALT 17 Alkaline Phosphatase 80 Creatine Kinase Creatine Kinase Index CK-MB (CK-2) Troponin I Total Protein 6.2 L Albumin 2.6 L Urine Color Urine Appearance Urine pH Ur Specific [place] Urine Protein Urine Glucose (UA) Urine Ketones Urine Blood Urine Nitrite Urine Bilirubin Urine Urobilinogen Ur Leukocyte Esterase Urine WBC (Auto) Urine RBC (Auto) Urine Casts (Auto) U Epithel Cells (Auto) Urine Bacteria (Auto) Urine Yeast (Auto) Influenza A (Rapid) Influenza B (Rapid) Blood Type Antibody Screen Crossmatch 07/03/19 07/04/19 07/04/19 20:29 03:50 03:50 WBC 5.3 RBC 2.27 L Hgb 6.8 L* Hct 21.2 L D MCV 93.6 MCH 30.1 MCHC 32.2 RDW 14.5 Plt Count 130 L MPV 8.7 Absolute Neuts (auto) Neutrophils % Neutrophils % (Manual) Band Neutrophils % Lymphocytes % Lymphocytes % (Manual) Monocytes % Monocytes % (Manual) Eosinophils % Eosinophils % (Manual) Basophils % Basophils % (Manual) Myelocytes % (Man) Promyelocytes % (Man) Blast Cells % (Manual) Nucleated RBC % Metamyelocytes Hypochromia Platelet Estimate Polychromasia Poikilocytosis Anisocytosis Microcytosis Macrocytosis Tear Drop Cells [place] Cells Rouleaux PT with INR INR PTT (Actin FS) Anticoagulation Therapy Puncture Site Patient Temperature ABG pH ABG pCO2 at Pt Temp ABG pO2 at Pt Temp ABG HCO3 ABG O2 Sat (Measured) ABG O2 Content ABG Base Excess Teto Test VBG pH POC VBG pCO2 POC VBG pO2 VBG HCO3 VBG O2 Sat (Brando) VBG Base Excess Carboxyhemoglobin Methemoglobin O2 Delivery Device Oxygen Flow Rate Vent Mode Vent Rate Mechanical Rate PEEP Pressure Support Vent Sodium 152 H Potassium 3.3 L Chloride 123 H Carbon Dioxide 18 L Anion Gap 11 BUN 78.1 H Creatinine 1.6 H Est GFR (CKD-EPI)AfAm 32.77 Est GFR (CKD-EPI)NonAf 28.27 POC Glucometer 135 Random Glucose 176 H Lactic Acid Calcium 7.4 L Phosphorus 3.0 Magnesium 2.1 Total Bilirubin AST ALT Alkaline Phosphatase Creatine Kinase Creatine Kinase Index CK-MB (CK-2) Troponin I 0.28 H Total Protein Albumin Urine Color Urine Appearance Urine pH Ur Specific [place] Urine Protein Urine Glucose (UA) Urine Ketones Urine Blood Urine Nitrite Urine Bilirubin Urine Urobilinogen Ur Leukocyte Esterase Urine WBC (Auto) Urine RBC (Auto) Urine Casts (Auto) U Epithel Cells (Auto) Urine Bacteria (Auto) Urine Yeast (Auto) Influenza A (Rapid) Influenza B (Rapid) Blood Type Antibody Screen Crossmatch 07/04/19 07/04/19 07/04/19 05:17 05:25 05:50 WBC RBC Hgb Hct MCV MCH MCHC RDW Plt Count MPV Absolute Neuts (auto) Neutrophils % Neutrophils % (Manual) Band Neutrophils % Lymphocytes % Lymphocytes % (Manual) Monocytes % Monocytes % (Manual) Eosinophils % Eosinophils % (Manual) Basophils % Basophils % (Manual) Myelocytes % (Man) Promyelocytes % (Man) Blast Cells % (Manual) Nucleated RBC % Metamyelocytes Hypochromia Platelet Estimate Polychromasia Poikilocytosis Anisocytosis Microcytosis Macrocytosis Tear Drop Cells [place] Cells Rouleaux PT with INR INR PTT (Actin FS) Anticoagulation Therapy Cancelled Puncture Site Cancelled Patient Temperature Cancelled ABG pH Cancelled ABG pCO2 at Pt Temp Cancelled ABG pO2 at Pt Temp Cancelled ABG HCO3 Cancelled ABG O2 Sat (Measured) Cancelled ABG O2 Content Cancelled ABG Base Excess Cancelled Teto Test Cancelled VBG pH POC VBG pCO2 POC VBG pO2 VBG HCO3 VBG O2 Sat (Brando) VBG Base Excess Carboxyhemoglobin Methemoglobin O2 Delivery Device Cancelled Oxygen Flow Rate Cancelled Vent Mode Cancelled Vent Rate Cancelled Mechanical Rate Cancelled PEEP Cancelled Pressure Support Vent Cancelled Sodium Potassium Chloride Carbon Dioxide Anion Gap BUN Creatinine Est GFR (CKD-EPI)AfAm Est GFR (CKD-EPI)NonAf POC Glucometer 176 Random Glucose Lactic Acid 2.8 H* Calcium Phosphorus Magnesium Total Bilirubin AST ALT Alkaline Phosphatase Creatine Kinase Creatine Kinase Index CK-MB (CK-2) Troponin I Total Protein Albumin Urine Color Urine Appearance Urine pH Ur Specific [place] Urine Protein Urine Glucose (UA) Urine Ketones Urine Blood Urine Nitrite Urine Bilirubin Urine Urobilinogen Ur Leukocyte Esterase Urine WBC (Auto) Urine RBC (Auto) Urine Casts (Auto) U Epithel Cells (Auto) Urine Bacteria (Auto) Urine Yeast (Auto) Influenza A (Rapid) Influenza B (Rapid) Blood Type Antibody Screen Crossmatch 07/04/19 07/04/19 07/04/19 06:00 06:50 11:58 WBC RBC Hgb Hct MCV MCH MCHC RDW Plt Count MPV Absolute Neuts (auto) Neutrophils % Neutrophils % (Manual) Band Neutrophils % Lymphocytes % Lymphocytes % (Manual) Monocytes % Monocytes % (Manual) Eosinophils % Eosinophils % (Manual) Basophils % Basophils % (Manual) Myelocytes % (Man) Promyelocytes % (Man) Blast Cells % (Manual) Nucleated RBC % Metamyelocytes Hypochromia Platelet Estimate Polychromasia Poikilocytosis Anisocytosis Microcytosis Macrocytosis Tear Drop Cells Anai Cells Rouleaux PT with INR INR PTT (Actin FS) Anticoagulation Therapy No Result Required. Puncture Site Right brachial Patient Temperature ABG pH 7.37 ABG pCO2 at Pt Temp 30.1 L ABG pO2 at Pt Temp 132 H ABG HCO3 17.0 L ABG O2 Sat (Measured) 98.1 H ABG O2 Content 30.1 ABG Base Excess -6.9 L Teto Test Positive VBG pH POC VBG pCO2 POC VBG pO2 VBG HCO3 VBG O2 Sat (Brando) VBG Base Excess Carboxyhemoglobin Methemoglobin O2 Delivery Device A/c Oxygen Flow Rate 50% Vent Mode No Result Required. Vent Rate No Result Required. Mechanical Rate No Result Required. PEEP 5.0 Pressure Support Vent 450 Sodium Potassium Chloride Carbon Dioxide Anion Gap BUN Creatinine Est GFR (CKD-EPI)AfAm Est GFR (CKD-EPI)NonAf POC Glucometer 136 Random Glucose Lactic Acid Calcium Phosphorus Magnesium Total Bilirubin AST ALT Alkaline Phosphatase Creatine Kinase 498 H Creatine Kinase Index 0.8 CK-MB (CK-2) 4.0 H Troponin I Total Protein Albumin Urine Color Urine Appearance Urine pH Ur Specific [place] Urine Protein Urine Glucose (UA) Urine Ketones Urine Blood Urine Nitrite Urine Bilirubin Urine Urobilinogen Ur Leukocyte Esterase Urine WBC (Auto) Urine RBC (Auto) Urine Casts (Auto) U Epithel Cells (Auto) Urine Bacteria (Auto) Urine Yeast (Auto) Influenza A (Rapid) Influenza B (Rapid) Blood Type Antibody Screen Crossmatch 07/04/19 07/04/19 13:10 17:02 WBC 6.5 RBC 2.82 L Hgb 8.4 L Hct 25.8 L D MCV 91.2 MCH 29.7 MCHC 32.5 RDW 15.2 Plt Count 133 L MPV 8.9 Absolute Neuts (auto) Neutrophils % Neutrophils % (Manual) Band Neutrophils % Lymphocytes % Lymphocytes % (Manual) Monocytes % Monocytes % (Manual) Eosinophils % Eosinophils % (Manual) Basophils % Basophils % (Manual) Myelocytes % (Man) Promyelocytes % (Man) Blast Cells % (Manual) Nucleated RBC % Metamyelocytes Hypochromia Platelet Estimate Polychromasia Poikilocytosis Anisocytosis Microcytosis Macrocytosis Tear Drop Cells [place] Cells Rouleaux PT with INR INR PTT (Actin FS) Anticoagulation Therapy Puncture Site Patient Temperature ABG pH ABG pCO2 at Pt Temp ABG pO2 at Pt Temp ABG HCO3 ABG O2 Sat (Measured) ABG O2 Content ABG Base Excess Teto Test VBG pH POC VBG pCO2 POC VBG pO2 VBG HCO3 VBG O2 Sat (Brando) VBG Base Excess Carboxyhemoglobin Methemoglobin O2 Delivery Device Oxygen Flow Rate Vent Mode Vent Rate Mechanical Rate PEEP Pressure Support Vent Sodium Potassium Chloride Carbon Dioxide Anion Gap BUN Creatinine Est GFR (CKD-EPI)AfAm Est GFR (CKD-EPI)NonAf POC Glucometer 172 Random Glucose Lactic Acid Calcium Phosphorus Magnesium Total Bilirubin AST ALT Alkaline Phosphatase Creatine Kinase Creatine Kinase Index CK-MB (CK-2) Troponin I Total Protein Albumin Urine Color Urine Appearance Urine pH Ur Specific [place] Urine Protein Urine Glucose (UA) Urine Ketones Urine Blood Urine Nitrite Urine Bilirubin Urine Urobilinogen Ur Leukocyte Esterase Urine WBC (Auto) Urine RBC (Auto) Urine Casts (Auto) U Epithel Cells (Auto) Urine Bacteria (Auto) Urine Yeast (Auto) Influenza A (Rapid) Influenza B (Rapid) Blood Type Antibody Screen Crossmatch Current Medications Generic Name Dose Route Start Last Admin Trade Name Stacia PRN Reason Stop Dose Admin Chlorhexidine Gluconate 1 applic 07/03/19 22:00 07/03/19 22:29 Hibiclens For Decolonization - TP 1 applic HS SILVINO Administration Heparin Sodium (Porcine) 5,000 unit 07/03/19 06:00 07/03/19 22:29 Heparin - SQ 5,000 unit TID SILVINO Administration Fentanyl 500 mcg/ Dextrose 100 mls @ 5 mls/hr 07/03/19 03:30 07/04/19 09:05 IVPB 0 mcg/hr TITR SILVINO 0 mls/hr Titration 25 MCG/HR Azithromycin 500 mg in 250 mls @ 250 mls/hr 07/04/19 10:00 07/04/19 09:59 Zithromax 500mg Ivpb (Pre-Docked) IVPB 250 mls/hr DAILY SILVINO Administration Piperacillin Sod/Tazobactam 50 mls @ 100 mls/hr 07/03/19 18:00 07/04/19 17:06 Sod 2.25 gm/ Dextrose IVPB 100 mls/hr Q8H-IV SILVINO Administration Protocol Vasopressin 50 units/ Sodium 100 mls @ 4 mls/hr 07/03/19 22:00 07/03/19 22:29 Chloride IVPB 2 units/hr ASDIR SILVINO 4 mls/hr Administration Protocol 2 UNITS/HR Norepinephrine Bitartrate 8, 500 mls @ 6.01 mls/hr 07/04/19 01:00 07/04/19 10 :00 000 mcg/ Dextrose IV 0 mcg/kg/min ASDIR SILVINO 0 mls/hr Titration Protocol 0.03 MCG/KG/MIN Lactated Ringer's 1,000 ml in 1,000 mls @ 125 mls/hr 07/04/19 09:45 07/04/19 16:24 Lactated Ringers Solution IV 125 mls/hr ASDIR SILVINO Administration Insulin Aspart 1 vial 07/04/19 00:30 07/04/19 17:11 Novolog Vial Sliding Scale - SQ 2 unit Q6H SILVINO Administration Protocol Mupirocin 1 applic 07/03/19 10:00 07/04/19 09:58 Bactroban Ointment (For Decolonization) - NS 07/08/19 09:59 1 applic BID SILVINO Administration A/P: 89 F h/o TIA, chronic anemia, dementia, HTN, NIDDM, HLD presented with septic shock due to acute hypoxemic respiratory failure 2/2 LLL CAP and urosepsis. Acute hypoxemic respiratory failure Due to LLL CAP Cont. Zosyn/Vanc, cont. Azithromycin in view of repeat normal Qtc Cont. full vent support follow cx ID consult: Dr Harrell UTI Cont. Abx, follow urine cx Cont. I/O w/ moreira Trend CRE improved w/ hydration, likely pre-renal Renal consult: Dr Humphrey Troponemia Likely demand ischemia Trop trending down Lactic acidosis Likely due to shock, pre-renal azotemia poor clearance Cont. IVF, trend lactate Prolonged QTc resolved, repeat normal Avoid QTc prolonging agents, give Mg PRN T2DM ISS titrate for F/S 140-180 Consider insulin drip of patient becomes hyperglycemic Dementia off sedation minimal response to pain not following commands keep off sedation if still no MS, obtain CT brain to rule out acute intracranial pathology F: IVF, free water feeds E: Monitor chem daily N: nutrition cs for feeds GI PPX: add H2 jennifer for GI ppx (avoid PPI due to renal status) DVT: Heparin 5000 unit SQ Visit type - Emergency Visit Emergency Visit: Yes ED Registration Date: 07/03/19 Care time: The patient presented to the Emergency Department on the above date and was hospitalized for further evaluation of their emergent condition. - New Patient This patient is new to me today: No - Critical Care Critical Care patient: Yes Total Critical Care Time (in minutes): 40 Critical Care Statement: The care of this patient involved high complexity decision making to prevent further life threatening deterioration of the patient 's condition and/or to evaluate & treat vital organ system(s) failure or risk of failure. - Discharge Referral Referred to [facility] Med [facility] No
[2019-07-04] MEDS: VASOPRESSIN 50 UNITS in SODIUM CHLORIDE 97.5 ML IVPB SCH (22:26)
[2019-07-04] MEDS: CHLORHEXIDINE GLUCONATE 4% CLEANSER FOR DECOLONIZATION TP SCH (22:26)
[2019-07-05] MEDS ORDERED: PIPERACILLIN/TAZOBACTAM 2.25 GM VIAL IVPB ONE ×3 (00:16→16:55)
[2019-07-05] MEDS ORDERED: DEXTROSE 5%-WATER - 50 ML IVPB ONE ×3 (00:16→16:55)
[2019-07-05] MEDS: INSULIN SLIDING SCALE (NOVOLOG) 1 VIAL SQ SCH ×5 (01:01→21:45)
[2019-07-05] MEDS: NOREPINEPHRINE BITARTRATE 8,000 MCG in DEXTROSE 5%-WATER - 492 ML IV SCH (01:01)
[2019-07-05] MEDS ORDERED: PROPOFOL 1,000,000 MCG/100 ML VIAL ONE (01:32)
[2019-07-05] MEDS: PROPOFOL 1,000,000 MCG/100 ML VIAL IVPB SCH (01:55)
[2019-07-05] MEDS: PIPERACILLIN/TAZOB 2.25 GM 2.25 GM in DEXTROSE 5%-WATER - 50 ML IVPB SCH ×3 (02:49→17:01)
[2019-07-05] MEDS: FENTANYL INJECTION 500 MCG in DEXTROSE 5%-WATER - 90 ML IVPB SCH (06:17)
[2019-07-05] MEDS: HEPARIN NA (PORCINE) 5,000 UNITS/ML 1ML VIAL SQ SCH ×3 (06:41→21:45)
[2019-07-05] MEDS ORDERED: SODIUM CHLORIDE 0.45% 1,000 ML IV SCH (07:30)
[2019-07-05 07:46] LABS: BASO % 0.2 % (0-2.0); EOS % 1.2 % (0-4.5); HEMATOCRIT 22.8 % (32.4-45.2); HEMOGLOBIN 7.5 GM/dL (10.7-15.3); MCH 29.1 pg (25.7-33.7); MCHC 32.8 g/dl (32.0-36.0); MEAN CELL VOLUME 88.8 fl (80-96); MEAN PLT VOLUME 8.7 fl (7.5-11.1); MONO % 3.4 % (3.8-10.2); NEUT % 84.2 % (42.8-82.8); PLATELET COUNT 138 K/MM3 (134-434); RBC 2.57 M/mm3 (3.60-5.2); RDW 14.9 % (11.6-15.6); WHITE BLOOD COUNT 6.9 K/mm3 (4.0-10.0)
[2019-07-05 08:13] LABS: ALBUMIN 1.7 g/dl (3.4-5.0); BILIRUBIN,TOTAL 0.4 mg/dL (0.2-1); CALCIUM 7.6 mg/dL (8.5-10.1); CREATININE 1.1 mg/dL (0.55-1.3); MAGNESIUM 1.8 mg/dL (1.8-2.4); PHOSPHOROUS 2.3 mg/dL (2.5-4.9); TOT PROT 4.6 g/dl (6.4-8.2)
[2019-07-05] MEDS ORDERED: POTASSIUM CHLORIDE ORAL LIQUID 20 MEQ/15 ML PO ONE (08:15)
[2019-07-05] MEDS ORDERED: KCL 10 MEQ IVPB 10 MEQ/100 ML INFUS.BAG IVPB SCH ×2 (08:15→09:00)
[2019-07-05] MEDS ORDERED: PT OWN MED DRAWER 7, Y5N ONE (08:59)
[2019-07-05] MEDS ORDERED: LACTATED RINGERS SOLUTION 1,000 ML/1,000 ML INFUS.BAG IV SCH (09:00)
[2019-07-05] MEDS: MUPIROCIN 2% TOPICAL OINTMENT FOR DECOLONIZATION NS SCH ×2 (09:06→21:46)
[2019-07-05] MEDS: POTASSIUM CHLORIDE 20 MEQ PREMIX IVPB 100 ML IVPB SCH ×2 (09:06→15:19)
[2019-07-05] MEDS: AZITHROMYCIN IVPB 500 MG/250 ML BAG IVPB SCH (09:07)
[2019-07-05] MEDS ORDERED: POTASSIUM CHLORIDE ORAL LIQUID 20 MEQ/15 ML GT ONE (09:30)
--- NOTE | 2019-07-05 09:40 | PN ---
Progress Note, Physician History of Present Illness: Sedated and intubated on propofol gtt. Off pressors currently. on vent a/c TV 450, 40% Fio02, peep 5. Febrile this AM to 102F - Current Medication List Current Medications: Active Medications Chlorhexidine Gluconate (Hibiclens For Decolonization -) 1 applic TP HS [facility] Last Admin: 07/04/19 22:26 Dose: 1 applic Heparin Sodium (Porcine) (Heparin -) 5,000 unit SQ TID [facility] Last Admin: 07/05/19 06:41 Dose: 5,000 unit Fentanyl 500 mcg/ Dextrose 100 mls @ 5 mls/hr IVPB TITR [facility] Last Admin: 07/05/19 06:17 Dose: Not Given Azithromycin (Zithromax 500mg Ivpb (Pre-Docked)) 500 mg in 250 mls @ 250 mls/ hr IVPB DAILY [facility] Last Admin: 07/05/19 09:07 Dose: 250 mls/hr Piperacillin Sod/Tazobactam (Sod 2.25 gm/ Dextrose) 50 mls @ 100 mls/hr IVPB Q8H-IV [facility]; Protocol Last Admin: 07/05/19 09:07 Dose: 100 mls/hr Vasopressin 50 units/ Sodium (Chloride) 100 mls @ 4 mls/hr IVPB ASDIR [facility]; Protocol Last Admin: 07/04/19 22:26 Dose: Not Given Norepinephrine Bitartrate 8, (000 mcg/ Dextrose) 500 mls @ 6.01 mls/hr IV ASDIR [facility]; Protocol Last Admin: 07/05/19 01:01 Dose: Not Given Propofol (Diprivan -) 1,000,000 mcg in 100 mls @ 1.655 mls/hr IVPB TITR [facility]; Protocol Last Titration: 07/05/19 02:49 Dose: 8 mcg/kg/min, 2.648 mls/hr Lactated Ringer's (Lactated Ringers Solution) 1,000 ml in 1,000 mls @ 100 mls/ hr IV ASDIR [facility] Last Admin: 07/05/19 09:03 Dose: 100 mls/hr Potassium Phosphate 30 mm/ (Dextrose) 260 mls @ 43.333 mls/hr IVPB ONCE ONE Stop: 07/05/19 16:29 Insulin Aspart (Novolog Vial Sliding Scale -) 1 vial SQ Q6H [facility]; Protocol Last Admin: 07/05/19 06:41 Dose: Not Given Magnesium Oxide (Mag-Ox -) 400 mg PO ONCE ONE Stop: 07/05/19 10:16 Mupirocin (Bactroban Ointment (For Decolonization) -) 1 applic NS BID [facility] Stop: 07/08/19 09:59 Last Admin: 07/05/19 09:06 Dose: 1 applic Potassium Chloride (Potassium Chloride 20 Meq Premix Ivpb -) 20 meq IVPB Q60M [facility] Stop: 07/05/19 10:31 - Objective Vital Signs: Vital Signs Temperature 99.3 F 07/05/19 06:00 Pulse Rate 76 07/05/19 08:00 Respiratory Rate 18 07/05/19 08:00 Blood Pressure 98/49 L 07/05/19 08:00 O2 Sat by Pulse Oximetry (%) 100 07/04/19 21:00 Constitutional: Yes: No Distress, Calm Neck: Yes: Supple Cardiovascular: Yes: Regular Rate and Rhythm Respiratory: Yes: Intubated, Mechanically Ventilated, Rhonchi Gastrointestinal: Yes: Soft, Hypoactive Bowel Sounds Genitourinary: Yes: [place] Present Edema: No Labs: CBC, BMP 07/05/19 07:30 07/05/19 07:30 INR, PTT INR 1.65 (0.83-1.09) H 07/03/19 01:04 - ....Imaging Chest X-ray: Report Reviewed (Left base and congestion changes) EKG: Report Reviewed (Tele: NSR) Problem List - Problems (1) Septic shock Code(s): A41.9 - SEPSIS, UNSPECIFIED ORGANISM; R65.21 - SEVERE SEPSIS WITH SEPTIC SHOCK (2) Acute hypoxemic respiratory failure Code(s): J96.01 - ACUTE RESPIRATORY FAILURE WITH HYPOXIA (3) Demand ischemia Code(s): I24.8 - OTHER FORMS OF ACUTE ISCHEMIC HEART DISEASE (4) Hypercholesterolemia Code(s): E78.00 - PURE HYPERCHOLESTEROLEMIA, UNSPECIFIED (5) UTI (urinary tract infection) Code(s): N39.0 - URINARY TRACT INFECTION, SITE NOT SPECIFIED Qualifiers: Urinary tract infection type: site unspecified (6) JELANI (acute kidney injury) Code(s): N17.9 - ACUTE KIDNEY FAILURE, UNSPECIFIED Assessment/Plan 1. Acute hypoxemic respiratory failure requiring intubation and mechanical ventilation 2. Post septic shock LLL CAP and urosepsis 3. Hypercholesterolemia 4. Hypothyoidism 5. NIDDM 6. Cerebrovascular disease, h/o TIA 7. Organic brain/dementia 8. Anemia 9. Demand ischemia 10. JELANI 2/2 septic shock improving PLAN: 1. Vent management per ABG 2. Wean pressor support for MAP>65 mmHg 3. Empiric antibiotic coverage 4. DVT prophylaxis 5. Troponins downtrending, monitor Hgb 6. Echocardiography to assess LV/RV and valvular function 7. Restart Metoprolol and Quinapril as BP tolerates and clinically feasible 8. Resume Atorvastatin, replete K
[2019-07-05] MEDS ORDERED: POTASSIUM PHOSPHATE 20 MM in DEXTROSE 5%-WATER - 250 ML IVPB ONE (10:00)
[2019-07-05 10:02] LABS: ANISOCYTOSIS 0; MACROCYTOSIS 0; PLATELET ESTIMATE DECREASED
[2019-07-05] MEDS ORDERED: MAGNESIUM OXIDE 400 MG TABLET (FP) PO ONE (10:15)
[2019-07-05] MEDS ORDERED: POTASSIUM PHOSPHATE 30 MM in DEXTROSE 5%-WATER - 250 ML IVPB ONE (10:30)
--- NOTE | 2019-07-05 11:00 | PN ---
Progress Note (short form) - Note Progress Note: Hospitalist Medicine Pt seen at bedside; intubated, sedated on propofol gtt. Not on pressors currently. on vent a/c TV 450, 40% Fio02, peep 5. Febrile this AM to 102F Vitals 07/05/19 10:00 Temperature 102.1 F H Respiratory 20 Rate Blood Pressure 145/62 Physical Exam general: pt is intubated, sedated. on vent heent: NCAT, PERRLA neck: supple cardio: S1, S2 RRR. no r/m/g pulm: +coarse breath sounds b/l. vented abdomen: soft, nontender, nondistended LE: 2+ pulses +moreira +intubated (07/03) +R IJ line (07/03) Laboratory Tests 07/05/19 07/05/19 07/05/19 07:30 07:30 07:30 WBC 6.9 Hgb 7.5 L Hct 22.8 L Plt Count 138 Sodium 148 H Potassium 3.0 L Chloride 118 H Carbon Dioxide 22 Anion Gap 7 L BUN 48.0 H Creatinine 1.1 Lactic Acid Calcium 7.6 L Phosphorus 2.3 L Magnesium 1.8 Total Bilirubin 0.4 AST 30 ALT 20 Alkaline Phosphatase 83 Total Protein 4.6 L Albumin 1.7 L Random Vancomycin 13.9 L 07/05/19 08:45 Lactic Acid 1.3 Microbiology 07/03/19 17:20 Urine - Urine Moreira Legionella Antigen - Final 07/03/19 17:20 Sputum - Endotrachea Suction/Ventilator Gram Stain - Final 07/03/19 02:14 Urine - Urine Moreira Urine Culture - Final Enterococcus Faecalis 07/04/19 05:50 Blood - Peripheral Venous Blood Culture - Preliminary NO GROWTH OBTAINED AFTER 24 HOURS, INCUBATION TO CONTINUE FOR 4 DAYS. 07/04/19 05:25 Blood - Peripheral Venous Blood Culture - Preliminary NO GROWTH OBTAINED AFTER 24 HOURS, INCUBATION TO CONTINUE FOR 4 DAYS. 07/03/19 17:20 Urine - Urine Moreira Streptococcus pneumoniae Antigen (M - Preliminary 07/03/19 17:20 Sputum - Endotrachea Suction/Ventilator Sputum Culture - Preliminary Lactose Fermenting Neg Bacilli Lactose Fermenting Neg Bacilli#2 Lactose Fermenting Neg Bacilli#3 07/03/19 01:22 Blood - Peripheral Venous Blood Culture - Preliminary NO GROWTH OBTAINED AFTER 48 HOURS, INCUBATION TO CONTINUE FOR 3 DAYS. 07/03/19 01:04 Blood - Peripheral Venous Blood Culture - Preliminary Staphylococcus Coagulase Neg Imaging 07/03/19: CXR: new atelectasis, infiltrate at L base. ETT well above christine. sclerotic knob. degenerative changes. 07/03/19 AXR: degenerative changes, OGT with tip in LUQ, ETT present with tip well above christine 07/03/19 CXR: pulm and pleural changes at L base, paucity of bowel gas 07/03/19: CXR: ETT tip below clavicular head level. NGT with tip in stomach. new R IJ ; tip in SVC. no pneumo. retrocardiac area is dense. sclerotic knob. large heart. 07/04/19: ETT, NGT, R jugular line, dense L base, sclerotic knob 07/05/19: CXR: ETT, R IJ line, NGT persist. sclerotic knob, large heart, dense L base, congestive changeshave increased slightly 07/03/19: EKG: sinus tach, rate 112bpm, qtc 505ms. ST changes lateral leads 07/03/19: EKG: NSR, rate 94bpm, qtc 487ms 07/04/19: EKG: NSR 61bpm, qtc 446ms. Assessment/Plan 89 y/o F h/o TIA, chronic anemia, dementia, HTN, NIDDM, HLD, who presented with septic shock due to acute hypoxemic respiratory failure 2/2 LLL CAP and urosepsis. #Acute hypoxemic RF 2/2 LLL CAP -c/w vanc x1, zosyn, zithro (06/03) -still w/ congestive changes -weaning trials as tolerated. currently on prop gtt -initial blood cx: +staph coag (-) (?) contaminant. f/u repeat cx -legionella (-), repeat blood cx (-) -IV tylenol PRN for fever -Pulm: Dr. Fitzpatrick -ID: Dr. Harrell #Septic shock 2/2 urosepsis, LLL CAP -currently not req pressors, had been on vaso, levo -most recent lactic 1.3 -maintain MAP > 65 -ucx: (+)e.faecalis >100,000 cfu -c/w zosynjordythro (06/03) -c/w moreira -ID: Dr. Harrell #JELANI 2/2 hypoperfusion -resolved -c/t monitor #Tropinemia likely 2/2 demand -trops trending down. do not need to cont following -f/u ECHO -Cardio: Dr. Bermudez #T2DM -c/w ISS, BGM ACHS -BG control < 180 -hold metformin #HTN -hold anti-HTN given recent shock: -hold toprol, quinapril #HLD -restart statin #hx TIA -restart statin -restart asa #hypokalemia, hypophosphatemia -repleted -f/u repeat BMP #F/E/N off IVF continue to follow lytes TF glucerna #PPX DVT: on hep 5k sq tid #Dispo cont'd ICU monitoring weaning trials as tolerated
[2019-07-05] MEDS ORDERED: ACETAMINOPHEN 1000 MG/100 ML VIAL (NON FORMULARY) IVPB PRN (11:04)
--- NOTE | 2019-07-05 12:04 | PN ---
Teaching Attending Note Name of Resident: Mago Sosa ATTENDING PHYSICIAN STATEMENT I saw and evaluated the patient. I reviewed the resident's note and discussed the case with the resident. I agree with the resident's findings and plan as documented. SUBJECTIVE: Pt seen and examined in the ICU. Remains intubated, lethargic but arousable off sedation. Not following commands. Febrile to 102 this AM. OBJECTIVE: Vital Signs Period Temp Pulse Resp BP Sys/Tolentino Pulse Ox Last 24 Hr 98.2 F-100.2 F 73-85 15-26 98-145/45-81 99-100 Intake & Output 07/02/19 07/03/19 07/04/19 07/05/19 23:59 23:59 23:59 23:59 Intake Total 4850 5473 1865 Output Total 700 1200 1300 Balance 4150 4273 565 Weight 53.5 kg 55.157 kg 59.2 kg Gen: intubated, lethargic Heart: RRR Lung: decreased breath sounds at the bases Abd: soft, nontender Ext: + edema CBC, BMP 07/05/19 07:30 07/05/19 07:30 Active Medications Acetaminophen (Ofirmev Injection -) 1,000 mg IVPB Q6H PRN PRN Reason: FEVER Aspirin (Asa -) 81 mg PO DAILY [facility] Atorvastatin Calcium (Lipitor -) 10 mg PO HS [facility] Chlorhexidine Gluconate (Hibiclens For Decolonization -) 1 applic TP HS [facility] Last Admin: 07/04/19 22:26 Dose: 1 applic Heparin Sodium (Porcine) (Heparin -) 5,000 unit SQ TID [facility] Last Admin: 07/05/19 06:41 Dose: 5,000 unit Azithromycin (Zithromax 500mg Ivpb (Pre-Docked)) 500 mg in 250 mls @ 250 mls/ hr IVPB DAILY [facility] Last Admin: 07/05/19 09:07 Dose: 250 mls/hr Piperacillin Sod/Tazobactam (Sod 2.25 gm/ Dextrose) 50 mls @ 100 mls/hr IVPB Q8H-IV [facility]; Protocol Last Admin: 07/05/19 09:07 Dose: 100 mls/hr Propofol (Diprivan -) 1,000,000 mcg in 100 mls @ 1.655 mls/hr IVPB TITR [facility]; Protocol Last Titration: 07/05/19 02:49 Dose: 8 mcg/kg/min, 2.648 mls/hr Potassium Phosphate 30 mm/ (Dextrose) 260 mls @ 43.333 mls/hr IVPB ONCE ONE Stop: 07/05/19 16:29 Last Admin: 07/05/19 10:46 Dose: 43.333 mls/hr Insulin Aspart (Novolog Vial Sliding Scale -) 1 vial SQ Q6H [facility]; Protocol Last Admin: 07/05/19 06:41 Dose: Not Given Mupirocin (Bactroban Ointment (For Decolonization) -) 1 applic NS BID [facility] Stop: 07/08/19 09:59 Last Admin: 07/05/19 09:06 Dose: 1 applic Pantoprazole Sodium (Protonix Iv) 40 mg IVPUSH DAILY [facility] ASSESSMENT AND PLAN: Acute Hypoxic Respiratory Failure Pneumonia UTI Bacteremia Septic Shock Acute Kidney Injury Lactic Acidosis +Troponins likely Demand Ischemia DM Hypothyroidism Hypercholesterolemia h/o CVA Dementia Anemia - continue antibiotics - f/u cultures - monitor urine output, creatinine - off pressors, maintain MAP >65 - echocardiogram - replete lytes - holding sedation to assess mental status - spontaneous breathing trials as tolerated - enteral feeds if unable to extubate - DVT/GI prophylaxis - continue ICU monitoring critical care time spent in reviewing chart, evaluating patient and formulating plan 35 min
[2019-07-05] MEDS: PANTOPRAZOLE SODIUM 40 MG VIAL IVPUSH SCH (12:38)
[2019-07-05] MEDS: ASPIRIN 81 MG CHEWABLE TABLETS PO SCH (12:39)
--- NOTE | 2019-07-05 12:40 | ECHO ---
Name: HUE ANN Exam:Adult Echocardiogram Study Date: 07/05/2019 11:13 AM Age: 89 yrs Reason For Study: CHF Height: 62 in Weight: 117 lb BSA: 1.5 m2 MMode/2D Measurements & Calculations IVSd: 0.99 cm Ao root diam: 2.5 cm LVIDd: 3.5 cm LA dimension: 2.7 cm LVIDs: 2.5 cm LVPWd: 0.89 cm EDV(Teich): 49.6 ml LVOT diam: 2.0 cm ESV(Teich): 21.8 ml LAV (MOD-bp): 40.3 ml RV S William: 14.1 cm/sec Doppler Measurements & Calculations MV E max william: 139.0 cm/sec Ao V2 max: 297.2 cm/sec MV A max william: 165.7 cm/sec Ao max P.5 mmHg MV E/A: 0.84 Ao V2 mean: 209.7 cm/sec MV dec time: 0.13 sec Ao mean P.2 mmHg Ao V2 VTI: 54.8 cm KAYODE(I,D): 0.97 cm2 AI P1/2t: 344.5 msec KAYODE(V,D): 0.95 cm2 AI max william: 405.8 cm/sec LV V1 max P.3 mmHg AI max P.0 mmHg LV V1 mean P.0 mmHg AI dec slope: 345.0 cm/sec2 LV V1 max: 90.2 cm/sec LV V1 mean: 65.5 cm/sec LV V1 VTI: 17.1 cm MR max william: 581.0 cm/sec SV(LVOT): 53.3 ml MR max P.0 mmHg TR max william: 264.3 cm/sec PA V2 max: 63.8 cm/sec TR max P.2 mmHg PA max P.6 mmHg Med Peak E' William: 3.6 cm/sec PI Vmax: 149.3 cm/sec Med E/e': 38.7 Lat Peak E' William: 5.0 cm/sec Lat E/e': 27.8 Procedure A complete two-dimensional transthoracic echocardiogram was performed (2D, M-mode, Doppler and color flow Doppler). Left Ventricle The left ventricle is normal in size. Left ventricular systolic function is normal. Ejection Fraction = 55- 60%. Elevated filling pressure. No regional wall motion abnormalities noted. Right Ventricle The right ventricle is normal size. The right ventricular systolic function is normal. RV systolic TD I is 14 cm/s. Atria The left atrial size is normal. LA volume index is 27 ml/m2. Right atrial size is normal. Mitral Valve There is mild mitral annular calcification. There is mild mitral regurgitation. Tricuspid Valve The tricuspid valve is normal in structure and function. There is moderate tricuspid regurgitation. P ulmonary artery systolic pressure is at least 37 mmHg if RA pressure is assumed 3 mmHg. Aortic Valve There is mild aortic valve thickening. Moderate valvular aortic stenosis. The calculated aortic valve area using the continuity equation is 1.0 cm2. Aortic mean pressure gradient= 22 mmHg. DI (dimensionless i ndex) is 0.27 [AV VTI 61 cm, LVOT VTI 16.9 cm]. Mild aortic regurgitation. Pulmonic Valve The pulmonic valve is not well visualized. Trace pulmonic valvular regurgitation. Great Vessels The aortic root is normal size. Pericardium/Pleura There is no pericardial effusion. Interpretation Summary The left ventricle is normal in size. Left ventricular systolic function is normal. No regional wall motion abnormalities noted. Ejection Fraction = 55-60%. The right ventricular systolic function is normal. The left atrial size is normal. Right atrial size is normal. There is mild mitral annular calcification. There is mild mitral regurgitation. There is moderate tricuspid regurgitation. Pulmonary artery systolic pressure is at least 37 mmHg if RA pressure is assumed 3 mmHg There is mild aortic valve thickening. Moderate valvular aortic stenosis. The calculated aortic valve area using the continuity equation is 1.0 cm2. Aortic mean pressure gradient= 22 mmHg DI (dimensionless index) is 0.27 [AV VTI 61 cm, LVOT VTI 16.9 cm] Mild aortic regurgitation. Trace pulmonic valvular regurgitation. There is no pericardial effusion. Saad Linton MD 07/05/2019 12:39 PM
--- NOTE | 2019-07-05 13:31 | PN ---
Progress Note, Physician History of Present Illness: Pt seen and examined at bedside. She remains in the ICU. She remains intubated. - Current Medication List Current Medications: Active Medications Acetaminophen (Ofirmev Injection -) 1,000 mg IVPB Q6H PRN PRN Reason: FEVER Aspirin (Asa -) 81 mg PO DAILY [facility] Last Admin: 07/05/19 12:39 Dose: 81 mg Atorvastatin Calcium (Lipitor -) 10 mg PO HS [facility] Chlorhexidine Gluconate (Hibiclens For Decolonization -) 1 applic TP HS [facility] Last Admin: 07/04/19 22:26 Dose: 1 applic Heparin Sodium (Porcine) (Heparin -) 5,000 unit SQ TID [facility] Last Admin: 07/05/19 06:41 Dose: 5,000 unit Azithromycin (Zithromax 500mg Ivpb (Pre-Docked)) 500 mg in 250 mls @ 250 mls/ hr IVPB DAILY [facility] Last Admin: 07/05/19 09:07 Dose: 250 mls/hr Piperacillin Sod/Tazobactam (Sod 2.25 gm/ Dextrose) 50 mls @ 100 mls/hr IVPB Q8H-IV [facility]; Protocol Last Admin: 07/05/19 09:07 Dose: 100 mls/hr Propofol (Diprivan -) 1,000,000 mcg in 100 mls @ 1.655 mls/hr IVPB TITR [facility]; Protocol Last Titration: 07/05/19 02:49 Dose: 8 mcg/kg/min, 2.648 mls/hr Potassium Phosphate 30 mm/ (Dextrose) 260 mls @ 43.333 mls/hr IVPB ONCE ONE Stop: 07/05/19 16:29 Last Admin: 07/05/19 10:46 Dose: 43.333 mls/hr Insulin Aspart (Novolog Vial Sliding Scale -) 1 vial SQ Q6H [facility]; Protocol Last Admin: 07/05/19 12:39 Dose: Not Given Mupirocin (Bactroban Ointment (For Decolonization) -) 1 applic NS BID [facility] Stop: 07/08/19 09:59 Last Admin: 07/05/19 09:06 Dose: 1 applic Pantoprazole Sodium (Protonix Iv) 40 mg IVPUSH DAILY [facility] Last Admin: 07/05/19 12:38 Dose: 40 mg - Objective Vital Signs: Vital Signs Temperature 98.2 F 07/05/19 10:00 Pulse Rate 88 07/05/19 12:00 Respiratory Rate 20 07/05/19 12:00 Blood Pressure 124/57 L 07/05/19 12:00 O2 Sat by Pulse Oximetry (%) 99 07/05/19 09:00 Constitutional: Yes: Calm Eyes: Yes: Conjunctiva Clear HENT: Yes: Atraumatic Neck: Yes: Supple Cardiovascular: Yes: S1, S2 Respiratory: Yes: Mechanically Ventilated Gastrointestinal: Yes: Soft Genitourinary: Yes: [place] Present Musculoskeletal: Yes: Muscle Weakness Edema: Yes Neurological: Yes: Lethargy Labs: CBC, BMP 07/05/19 07:30 07/05/19 07:30 INR, PTT INR 1.65 (0.83-1.09) H 07/03/19 01:04 - ....Imaging Chest X-ray: Report Reviewed Assessment/Plan Current Medications Generic Name Dose Route Start Last Admin Trade Name Freq PRN Reason Stop Dose Admin Acetaminophen 1,000 mg 07/05/19 11:04 Ofirmev Injection - IVPB Q6H PRN FEVER Aspirin 81 mg 07/05/19 11:45 07/05/19 12:39 Asa - PO 81 mg DAILY [facility] Administration Atorvastatin Calcium 10 mg 07/05/19 22:00 Lipitor - PO HS [facility] Chlorhexidine Gluconate 1 applic 07/03/19 22:00 07/04/19 22:26 Hibiclens For Decolonization - TP 1 applic HS [facility] Administration Heparin Sodium (Porcine) 5,000 unit 07/03/19 06:00 07/05/19 06:41 Heparin - SQ 5,000 unit TID [facility] Administration Azithromycin 500 mg in 250 mls @ 250 mls/hr 07/04/19 10:00 07/05/19 09:07 Zithromax 500mg Ivpb (Pre-Docked) IVPB 250 mls/hr DAILY [facility] Administration Piperacillin Sod/Tazobactam 50 mls @ 100 mls/hr 07/03/19 18:00 07/05/19 09:07 Sod 2.25 gm/ Dextrose IVPB 100 mls/hr Q8H-IV [facility] Administration Protocol Propofol 1,000,000 mcg in 100 mls @ 1.655 mls/hr 07/05/19 01:45 07/05/19 02: 49 Diprivan - IVPB 8 mcg/kg/min TITR [facility] 2.648 mls/hr Titration Protocol 5 MCG/KG/MIN Potassium Phosphate 30 mm/ 260 mls @ 43.333 mls/hr 07/05/19 10:30 07/05/19 10 :46 Dextrose IVPB 07/05/19 16:29 43.333 mls/hr ONCE ONE Administration Insulin Aspart 1 vial 07/04/19 00:30 07/05/19 12:39 Novolog Vial Sliding Scale - SQ Not Given Q6H [facility] Protocol Mupirocin 1 applic 07/03/19 10:00 07/05/19 09:06 Bactroban Ointment (For Decolonization) - NS 07/08/19 09:59 1 applic BID [facility] Administration Pantoprazole Sodium 40 mg 07/05/19 11:45 07/05/19 12:38 Protonix Iv IVPUSH 40 mg DAILY [facility] Administration 1. JELANI 2. Metabolic acidosis 3. Hypernatremia 4. Sepsis 5. Respiratory failure 6. Anemia 7. PNA 8. hypokalemia Plan - renal function is improving - cont free water - vent support - replace potassium - replace phos - monitor bp - vent support - ICU monitoring - maintain MAP > 65
--- NOTE | 2019-07-05 14:02 | PN ---
Physical Exam: SUBJECTIVE: Patient seen and examined pt examined this a.m off sedation drowsy but arousable. OBJECTIVE: Vital Signs Period Temp Pulse Resp BP Sys/Tolentino Pulse Ox Last 24 Hr 98.2 F-100.2 F 73-88 15-22 98-145/45-81 99-100 GENERAL: intubated. off sedation at time of evaluation HEAD: Normal with no signs of trauma. EYES: PERRL, sclera anicteric, conjunctiva clear. No ptosis. ENT: Ears normal, nares patent, oropharynx clear without exudates, moist mucous membranes. NECK: Trachea midline, LUNGS: decreased breath sounds. no rhonchi/wheezing HEART: Regular rate and rhythm, S1, S2 without murmur, rub or gallop. ABDOMEN: Soft, nontender, nondistended, normoactive bowel sounds EXTREMITIES: 2+ pulses, warm, well-perfused, no edema. NEUROLOGICAL: pt. off sedation but arousable to voice SKIN: Warm, dry, normal turgor, no rashes or lesions noted Laboratory Results - last 24 hr 07/04/19 07/05/19 07/05/19 17:02 00:29 06:29 WBC RBC Hgb Hct MCV MCH MCHC RDW Plt Count MPV Absolute Neuts (auto) Neutrophils % Neutrophils % (Manual) Band Neutrophils % Lymphocytes % Lymphocytes % (Manual) Monocytes % Monocytes % (Manual) Eosinophils % Eosinophils % (Manual) Basophils % Basophils % (Manual) Myelocytes % (Man) Promyelocytes % (Man) Blast Cells % (Manual) Nucleated RBC % Metamyelocytes Hypochromia Platelet Estimate Polychromasia Poikilocytosis Anisocytosis Microcytosis Macrocytosis Schistocytes Sodium Potassium Chloride Carbon Dioxide Anion Gap BUN Creatinine Est GFR (CKD-EPI)AfAm Est GFR (CKD-EPI)NonAf POC Glucometer 172 138 136 Random Glucose Lactic Acid Calcium Phosphorus Magnesium Total Bilirubin AST ALT Alkaline Phosphatase Total Protein Albumin Stool Occult Blood Random Vancomycin 07/05/19 07/05/19 07/05/19 07:30 07:30 07:30 WBC 6.9 RBC 2.57 L Hgb 7.5 L Hct 22.8 L MCV 88.8 MCH 29.1 MCHC 32.8 RDW 14.9 Plt Count 138 MPV 8.7 Absolute Neuts (auto) 5.8 Neutrophils % 84.2 H Neutrophils % (Manual) 81.8 Band Neutrophils % 1.0 Lymphocytes % 11.0 D Lymphocytes % (Manual) 10.1 D Monocytes % 3.4 L Monocytes % (Manual) 3 L Eosinophils % 1.2 D Eosinophils % (Manual) 4.1 D Basophils % 0.2 Basophils % (Manual) 0.0 Myelocytes % (Man) 0 Promyelocytes % (Man) 0 Blast Cells % (Manual) 0 Nucleated RBC % 0 Metamyelocytes 0 D Hypochromia 0 Platelet Estimate Decreased Polychromasia 0 Poikilocytosis 1+ Anisocytosis 0 Microcytosis 0 Macrocytosis 0 Schistocytes 1+ Sodium 148 H Potassium 3.0 L Chloride 118 H Carbon Dioxide 22 Anion Gap 7 L BUN 48.0 H Creatinine 1.1 Est GFR (CKD-EPI)AfAm 51.55 Est GFR (CKD-EPI)NonAf 44.48 POC Glucometer Random Glucose 137 H Lactic Acid Calcium 7.6 L Phosphorus 2.3 L Magnesium 1.8 Total Bilirubin 0.4 AST 30 ALT 20 Alkaline Phosphatase 83 Total Protein 4.6 L Albumin 1.7 L Stool Occult Blood Random Vancomycin 13.9 L 07/05/19 07/05/19 07/05/19 08:45 12:36 12:38 WBC RBC Hgb Hct MCV MCH MCHC RDW Plt Count MPV Absolute Neuts (auto) Neutrophils % Neutrophils % (Manual) Band Neutrophils % Lymphocytes % Lymphocytes % (Manual) Monocytes % Monocytes % (Manual) Eosinophils % Eosinophils % (Manual) Basophils % Basophils % (Manual) Myelocytes % (Man) Promyelocytes % (Man) Blast Cells % (Manual) Nucleated RBC % Metamyelocytes Hypochromia Platelet Estimate Polychromasia Poikilocytosis Anisocytosis Microcytosis Macrocytosis Schistocytes Sodium Potassium Chloride Carbon Dioxide Anion Gap BUN Creatinine Est GFR (CKD-EPI)AfAm Est GFR (CKD-EPI)NonAf POC Glucometer 145 Random Glucose Lactic Acid 1.3 Calcium Phosphorus Magnesium Total Bilirubin AST ALT Alkaline Phosphatase Total Protein Albumin Stool Occult Blood Negative Random Vancomycin Active Medications Generic Name Dose Route Start Last Admin Trade Name Freq PRN Reason Stop Dose Admin Acetaminophen 1,000 mg 07/05/19 11:04 Ofirmev Injection - IVPB Q6H PRN FEVER Aspirin 81 mg 07/05/19 11:45 07/05/19 12:39 Asa - PO 81 mg DAILY [facility] Administration Atorvastatin Calcium 10 mg 01/06/20 22:00 Lipitor - PO HS [facility] Chlorhexidine Gluconate 1 applic 07/03/19 22:00 07/04/19 22:26 Hibiclens For Decolonization - TP 1 applic HS [facility] Administration Heparin Sodium (Porcine) 5,000 unit 07/03/19 06:00 07/05/19 06:41 Heparin - SQ 5,000 unit TID [facility] Administration Azithromycin 500 mg in 250 mls @ 250 mls/hr 07/04/19 10:00 07/05/19 09:07 Zithromax 500mg Ivpb (Pre-Docked) IVPB 250 mls/hr DAILY [facility] Administration Piperacillin Sod/Tazobactam 50 mls @ 100 mls/hr 07/03/19 18:00 07/05/19 09:07 Sod 2.25 gm/ Dextrose IVPB 100 mls/hr Q8H-IV [facility] Administration Protocol Propofol 1,000,000 mcg in 100 mls @ 1.655 mls/hr 07/05/19 01:45 07/05/19 02:49 Diprivan - IVPB 8 mcg/kg/min TITR [facility] 2.648 mls/hr Titration Protocol 5 MCG/KG/MIN Potassium Phosphate 30 mm/ 260 mls @ 43.333 mls/hr 07/05/19 10:30 07/05/19 10:46 Dextrose IVPB 07/05/19 16:29 43.333 mls/hr ONCE ONE Administration Insulin Aspart 1 vial 07/04/19 00:30 07/05/19 12:39 Novolog Vial Sliding Scale - SQ Not Given Q6H [facility] Protocol Mupirocin 1 applic 07/03/19 10:00 07/05/19 09:06 Bactroban Ointment (For Decolonization) - NS 07/08/19 09:59 1 applic BID [facility] Administration Pantoprazole Sodium 40 mg 07/05/19 11:45 07/05/19 12:38 Protonix Iv IVPUSH 40 mg DAILY [facility] Administration ASSESSMENT/PLAN: 89y/o F hx of TIA, anemia (possibly of chronic disease), dementia, HTN, NIDDM, HLD brought in to the ED by EMS with respiratory failure from home. Neuro -intubated and sedated - hx of dementia -sedation trial this a.m CV r/o NSTEMI -elevated troponin 1.11 on arrival -t-wave inversions in lateral leads. qtc 505 on initial EKG - ekg 07/04/2019. sinus rhythm with marked sinus arrthymia, reduction in t wave inversions. qtc 446 -troponins down trending but still elevated, continue to monitor. -Now off pressors. -Cardiology on board Dr. Shaila Jimenez acute hypoxic respiratory failure -intubated - azithromycin and zosyn in ED -vent setting at this time A/c mode volume control, RR 14, Tidal volume 450. PEEP 5, FiO2 100 - monitor -f/u respiratory therapy consult ID Sepsis -Lactic acid now at 1.3 -abx zosyn and azithromycin per ID (Dr. Harrell) -spiked fever this a.m. continue monitoring and follow up pending cultures Heme/Onc required transfusion (1 unit prbc) yesterday due to Hgb of 6.8 -Hgb today 7.5 continue to monitor transfuse @ Hb <7 UTI -UA + leukocyte esterase and nitrites on admission -on abx as stated above -moreira catheter in place Renal JELANI -BUN 113,Cr 3 on admission -Cr 1.1 BUN 48.0 continue to monitor F: standing fluids d/c. LR bolus as needed E: Hypernatremia improved to 148. continue to monitor N: on enteral feeds (Glucerna) DVT: Heparin 5000 units SQ Visit type - Emergency Visit Emergency Visit: Yes ED Registration Date: 07/03/19 Care time: The patient presented to the Emergency Department on the above date and was hospitalized for further evaluation of their emergent condition. - New Patient This patient is new to me today: No - Critical Care Critical Care patient: No - Discharge Referral Referred to [facility] Med P.C.: No ATTENDING PHYSICIAN STATEMENT I saw and evaluated the patient. I reviewed the resident's note and discussed the case with the resident. I agree with the resident's findings and plan as documented. SUBJECTIVE: OBJECTIVE: ASSESSMENT AND PLAN:
--- NOTE | 2019-07-05 16:06 | PN ---
Teaching Attending Note Name of Resident: Rupinder Honeycutt ATTENDING PHYSICIAN STATEMENT I saw and evaluated the patient. I reviewed the resident's note and discussed the case with the resident. I agree with the resident's findings and plan as documented. SUBJECTIVE: Patient intubated, off sedation. OBJECTIVE: Vital Signs Period Temp Pulse Resp BP Sys/Tolentino Pulse Ox Last 24 Hr 98.2 F-100.2 F 73-88 15-24 98-145/49-81 99-100 HEART: S1S2, RRR LUNGS: Ventilated BS ABDOMEN: Soft, non-distended, normal BS EXTREMITIES: Trace edema Laboratory Results - last 24 hr 07/04/19 07/05/19 07/05/19 17:02 00:29 06:29 WBC RBC Hgb Hct MCV MCH MCHC RDW Plt Count MPV Absolute Neuts (auto) Neutrophils % Neutrophils % (Manual) Band Neutrophils % Lymphocytes % Lymphocytes % (Manual) Monocytes % Monocytes % (Manual) Eosinophils % Eosinophils % (Manual) Basophils % Basophils % (Manual) Myelocytes % (Man) Promyelocytes % (Man) Blast Cells % (Manual) Nucleated RBC % Metamyelocytes Hypochromia Platelet Estimate Polychromasia Poikilocytosis Anisocytosis Microcytosis Macrocytosis Schistocytes Sodium Potassium Chloride Carbon Dioxide Anion Gap BUN Creatinine Est GFR (CKD-EPI)AfAm Est GFR (CKD-EPI)NonAf POC Glucometer 172 138 136 Random Glucose Lactic Acid Calcium Phosphorus Magnesium Total Bilirubin AST ALT Alkaline Phosphatase Total Protein Albumin Stool Occult Blood Random Vancomycin 07/05/19 07/05/19 07/05/19 07:30 07:30 07:30 WBC 6.9 RBC 2.57 L Hgb 7.5 L Hct 22.8 L MCV 88.8 MCH 29.1 MCHC 32.8 RDW 14.9 Plt Count 138 MPV 8.7 Absolute Neuts (auto) 5.8 Neutrophils % 84.2 H Neutrophils % (Manual) 81.8 Band Neutrophils % 1.0 Lymphocytes % 11.0 D Lymphocytes % (Manual) 10.1 D Monocytes % 3.4 L Monocytes % (Manual) 3 L Eosinophils % 1.2 D Eosinophils % (Manual) 4.1 D Basophils % 0.2 Basophils % (Manual) 0.0 Myelocytes % (Man) 0 Promyelocytes % (Man) 0 Blast Cells % (Manual) 0 Nucleated RBC % 0 Metamyelocytes 0 D Hypochromia 0 Platelet Estimate Decreased Polychromasia 0 Poikilocytosis 1+ Anisocytosis 0 Microcytosis 0 Macrocytosis 0 Schistocytes 1+ Sodium 148 H Potassium 3.0 L Chloride 118 H Carbon Dioxide 22 Anion Gap 7 L BUN 48.0 H Creatinine 1.1 Est GFR (CKD-EPI)AfAm 51.55 Est GFR (CKD-EPI)NonAf 44.48 POC Glucometer Random Glucose 137 H Lactic Acid Calcium 7.6 L Phosphorus 2.3 L Magnesium 1.8 Total Bilirubin 0.4 AST 30 ALT 20 Alkaline Phosphatase 83 Total Protein 4.6 L Albumin 1.7 L Stool Occult Blood Random Vancomycin 13.9 L 07/05/19 07/05/19 07/05/19 08:45 12:36 12:38 WBC RBC Hgb Hct MCV MCH MCHC RDW Plt Count MPV Absolute Neuts (auto) Neutrophils % Neutrophils % (Manual) Band Neutrophils % Lymphocytes % Lymphocytes % (Manual) Monocytes % Monocytes % (Manual) Eosinophils % Eosinophils % (Manual) Basophils % Basophils % (Manual) Myelocytes % (Man) Promyelocytes % (Man) Blast Cells % (Manual) Nucleated RBC % Metamyelocytes Hypochromia Platelet Estimate Polychromasia Poikilocytosis Anisocytosis Microcytosis Macrocytosis Schistocytes Sodium Potassium Chloride Carbon Dioxide Anion Gap BUN Creatinine Est GFR (CKD-EPI)AfAm Est GFR (CKD-EPI)NonAf POC Glucometer 145 Random Glucose Lactic Acid 1.3 Calcium Phosphorus Magnesium Total Bilirubin AST ALT Alkaline Phosphatase Total Protein Albumin Stool Occult Blood Negative Random Vancomycin Current Medications Generic Name Dose Route Start Last Admin Trade Name Freq PRN Reason Stop Dose Admin Acetaminophen 1,000 mg 07/05/19 11:04 Ofirmev Injection - IVPB Q6H PRN FEVER Aspirin 81 mg 07/05/19 11:45 07/05/19 12:39 Asa - PO 81 mg DAILY S[facility]INO Administration Atorvastatin Calcium 10 mg 07/05/19 22:00 Lipitor - PO HS SILVINO Chlorhexidine Gluconate 1 applic 07/03/19 22:00 07/04/19 22:26 Hibiclens For Decolonization - TP 1 applic HS [facility] Administration Heparin Sodium (Porcine) 5,000 unit 07/03/19 06:00 07/05/19 15:19 Heparin - SQ 5,000 unit TID [facility] Administration Azithromycin 500 mg in 250 mls @ 250 mls/hr 07/04/19 10:00 07/05/19 09:07 Zithromax 500mg Ivpb (Pre-Docked) IVPB 250 mls/hr DAILY [facility] Administration Piperacillin Sod/Tazobactam 50 mls @ 100 mls/hr 07/03/19 18:00 07/05/19 09:07 Sod 2.25 gm/ Dextrose IVPB 100 mls/hr Q8H-IV [facility] Administration Protocol Propofol 1,000,000 mcg in 100 mls @ 1.655 mls/hr 07/05/19 01:45 07/05/19 02: 49 Diprivan - IVPB 8 mcg/kg/min TITR [facility] 2.648 mls/hr Titration Protocol 5 MCG/KG/MIN Potassium Phosphate 30 mm/ 260 mls @ 43.333 mls/hr 07/05/19 10:30 07/05/19 10 :46 Dextrose IVPB 07/05/19 16:29 43.333 mls/hr ONCE ONE Administration Insulin Aspart 1 vial 07/04/19 00:30 07/05/19 12:39 Novolog Vial Sliding Scale - SQ Not Given Q6H [facility] Protocol Mupirocin 1 applic 07/03/19 10:00 07/05/19 09:06 Bactroban Ointment (For Decolonization) - NS 07/08/19 09:59 1 applic BID [facility] Administration Pantoprazole Sodium 40 mg 07/05/19 11:45 07/05/19 12:38 Protonix Iv IVPUSH 40 mg DAILY S[facility]INO Administration ASSESSMENT AND PLAN: This is an 89 year old woman with a history of HTN, hyperlipidemia, type 2 DM, anemia, TIA, dementia who presented to the ED with respiratory distress. 1. Acute hypoxic respiratory failure secondary to pneumonia - Remains intubated - weaning as per pulm/critical care 2. Septic shock pneumonia, E. faecalis UTI - Off pressors - Continue Zosyn, azithromycin 3. Acute kidney injury secondary to hypoperfusion - Resolved 4. Demand ischemia 5. Hypernatremia 6. Hypokalemia - Replete potassium 7. Hypophosphatemia - Phosphorus supplementation 8. Type 2 DM - Metformin held - Continue Novolog sliding scale 9. HTN - Accupril, Toprol XL held secondary to septic shock 10. Hyperlipidemia - Continue Lipitor 11. Anemia - Transfused 1 unit PRBCs yesterday - Monitor hgb 12. History of TIA - Continue aspirin, Lipitor 13. DVT prophylaxis - Heparin subq 14. Stress ulcer prophylaxis - Protonix IV
--- NOTE | 2019-07-05 16:17 | PN ---
Progress Note, Physician History of Present Illness: REMAINS INTUBATED OFF SEDATION AND PRESSORS LOW GRADE TEMP NOTED + BC SCN X 1 C/W CONTAMINATION RENAL FUNCTION IMPROVED - Current Medication List Current Medications: Active Medications Acetaminophen (Ofirmev Injection -) 1,000 mg IVPB Q6H PRN PRN Reason: FEVER Aspirin (Asa -) 81 mg PO DAILY [facility] Last Admin: 07/05/19 12:39 Dose: 81 mg Atorvastatin Calcium (Lipitor -) 10 mg PO HS SIL[facility]INO Chlorhexidine Gluconate (Hibiclens For Decolonization -) 1 applic TP HS [facility] Last Admin: 07/04/19 22:26 Dose: 1 applic Heparin Sodium (Porcine) (Heparin -) 5,000 unit SQ TID [facility] Last Admin: 07/05/19 15:19 Dose: 5,000 unit Azithromycin (Zithromax 500mg Ivpb (Pre-Docked)) 500 mg in 250 mls @ 250 mls/ hr IVPB DAILY [facility] Last Admin: 07/05/19 09:07 Dose: 250 mls/hr Piperacillin Sod/Tazobactam (Sod 2.25 gm/ Dextrose) 50 mls @ 100 mls/hr IVPB Q8H-IV [facility]; Protocol Last Admin: 07/05/19 09:07 Dose: 100 mls/hr Propofol (Diprivan -) 1,000,000 mcg in 100 mls @ 1.655 mls/hr IVPB TITR [facility]; Protocol Last Titration: 07/05/19 02:49 Dose: 8 mcg/kg/min, 2.648 mls/hr Potassium Phosphate 30 mm/ (Dextrose) 260 mls @ 43.333 mls/hr IVPB ONCE ONE Stop: 07/05/19 16:29 Last Admin: 07/05/19 10:46 Dose: 43.333 mls/hr Insulin Aspart (Novolog Vial Sliding Scale -) 1 vial SQ Q6H [facility]; Protocol Last Admin: 07/05/19 12:39 Dose: Not Given Mupirocin (Bactroban Ointment (For Decolonization) -) 1 applic NS BID [facility] Stop: 07/08/19 09:59 Last Admin: 07/05/19 09:06 Dose: 1 applic Pantoprazole Sodium (Protonix Iv) 40 mg IVPUSH DAILY [facility] Last Admin: 07/05/19 12:38 Dose: 40 mg - Objective Vital Signs: Vital Signs Temperature 98.4 F 07/05/19 14:00 Pulse Rate 83 07/05/19 14:00 Respiratory Rate 24 H 07/05/19 14:00 Blood Pressure 122/76 07/05/19 14:00 O2 Sat by Pulse Oximetry (%) 99 07/05/19 09:00 Constitutional: Yes: No Distress Eyes: Yes: Conjunctiva Clear Cardiovascular: Yes: Regular Rate and Rhythm, S1, S2 Respiratory: Yes: CTA Bilaterally, Mechanically Ventilated Gastrointestinal: Yes: Normal Bowel Sounds, Soft. No: Tenderness Edema: Yes Labs: CBC, BMP 07/05/19 07:30 07/05/19 07:30 INR, PTT INR 1.65 (0.83-1.09) H 07/03/19 01:04 Assessment/Plan ACUTE RESPIRATORY FAILURE LLL PNEUMONIA SEPSIS/SEPTIC SHOCK +BC SCN C/W CONTAMINATION UTI LACTIC ACIDOSIS RENAL FAILURE IMPROVED ANEMIA THROMBOCYTOPENIA ? SECONDARY TO SEPSIS HYPERNATREMIA CONTINUE HEMODYNAMIC/VENTILATORY SUPPORT CONTINUE ZOSYN/ ZITHROMAX REPEAT BC PENDING
[2019-07-05] MEDS: ATORVASTATIN CA 10 MG TABLET (FP) PO SCH (21:46)
[2019-07-05] MEDS: CHLORHEXIDINE GLUCONATE 4% CLEANSER FOR DECOLONIZATION TP SCH (21:47)
[2019-07-06] MEDS: INSULIN SLIDING SCALE (NOVOLOG) 1 VIAL SQ SCH ×4 (00:30→18:01)
[2019-07-06] MEDS: PROPOFOL 1,000,000 MCG/100 ML VIAL IVPB SCH (01:45)
[2019-07-06] MEDS ORDERED: PIPERACILLIN/TAZOBACTAM 2.25 GM VIAL IVPB ONE ×3 (03:02→18:09)
[2019-07-06] MEDS ORDERED: DEXTROSE 5%-WATER - 50 ML IVPB ONE ×3 (03:02→18:09)
[2019-07-06] MEDS: PIPERACILLIN/TAZOB 2.25 GM 2.25 GM in DEXTROSE 5%-WATER - 50 ML IVPB SCH ×3 (03:06→18:17)
[2019-07-06] MEDS: HEPARIN NA (PORCINE) 5,000 UNITS/ML 1ML VIAL SQ SCH ×3 (06:09→21:57)
[2019-07-06 07:31] LABS: BASO % 0.1 % (0-2.0); HEMATOCRIT 22.3 % (32.4-45.2); HEMOGLOBIN 7.4 GM/dL (10.7-15.3); MCH 29.4 pg (25.7-33.7); MCHC 33.1 g/dl (32.0-36.0); MEAN CELL VOLUME 88.8 fl (80-96); MEAN PLT VOLUME 8.9 fl (7.5-11.1); MONO % 4.4 % (3.8-10.2); NEUT % 83.5 % (42.8-82.8); PLATELET COUNT 139 K/MM3 (134-434); RBC 2.51 M/mm3 (3.60-5.2); RDW 14.5 % (11.6-15.6); WHITE BLOOD COUNT 6.2 K/mm3 (4.0-10.0)
[2019-07-06 07:49] LABS: ALBUMIN 1.7 g/dl (3.4-5.0); BILIRUBIN,TOTAL 0.4 mg/dL (0.2-1); BLOOD UREA NITROGEN 33.3 mg/dL (7-18); CALCIUM 7.5 mg/dL (8.5-10.1); CREATININE 1.1 mg/dL (0.55-1.3); MAGNESIUM 1.8 mg/dL (1.8-2.4); PHOSPHOROUS 2.9 mg/dL (2.5-4.9); POTASSIUM 3.6 mmol/L (3.5-5.1); TOT PROT 4.6 g/dl (6.4-8.2)
[2019-07-06] MEDS: AZITHROMYCIN IVPB 500 MG/250 ML BAG IVPB SCH (09:37)
[2019-07-06] MEDS: PANTOPRAZOLE SODIUM 40 MG VIAL IVPUSH SCH (09:40)
[2019-07-06] MEDS: ASPIRIN 81 MG CHEWABLE TABLETS PO SCH (09:40)
--- NOTE | 2019-07-06 10:34 | PN ---
Progress Note, Physician Chief Complaint: Remains on mechanical ventilation support History of Present Illness: Patient was seen and examined. Remains intubated in ICU. Chart was reviewed - Current Medication List Current Medications: Active Medications Acetaminophen (Ofirmev Injection -) 1,000 mg IVPB Q6H PRN PRN Reason: FEVER Last Admin: 07/06/19 03:05 Dose: 1,000 mg Aspirin (Asa -) 81 mg PO DAILY [facility] Last Admin: 07/06/19 09:40 Dose: 81 mg Atorvastatin Calcium (Lipitor -) 10 mg PO HS [facility] Last Admin: 07/05/19 21:46 Dose: 10 mg Chlorhexidine Gluconate (Hibiclens For Decolonization -) 1 applic TP HS [facility] Last Admin: 07/05/19 21:47 Dose: 1 applic Heparin Sodium (Porcine) (Heparin -) 5,000 unit SQ TID [facility] Last Admin: 07/06/19 06:09 Dose: 5,000 unit Azithromycin (Zithromax 500mg Ivpb (Pre-Docked)) 500 mg in 250 mls @ 250 mls/ hr IVPB DAILY [facility] Last Admin: 07/06/19 09:37 Dose: 250 mls/hr Piperacillin Sod/Tazobactam (Sod 2.25 gm/ Dextrose) 50 mls @ 100 mls/hr IVPB Q8H-IV [facility]; Protocol Last Admin: 07/06/19 09:40 Dose: 100 mls/hr Propofol (Diprivan -) 1,000,000 mcg in 100 mls @ 1.655 mls/hr IVPB TITR [facility]; Protocol Last Titration: 07/06/19 07:00 Dose: 0 mcg/kg/min, 0 mls/hr Insulin Aspart (Novolog Vial Sliding Scale -) 1 vial SQ Q6H [facility]; Protocol Last Admin: 07/06/19 06:09 Dose: 2 unit Mupirocin (Bactroban Ointment (For Decolonization) -) 1 applic NS BID [facility] Stop: 07/08/19 09:59 Last Admin: 07/05/19 21:46 Dose: 1 applic Pantoprazole Sodium (Protonix Iv) 40 mg IVPUSH DAILY [facility] Last Admin: 07/06/19 09:40 Dose: 40 mg - Objective Vital Signs: Vital Signs Temperature 98.8 F 07/06/19 10:00 Pulse Rate 18 L 07/06/19 10:00 Respiratory Rate 75 H 07/06/19 10:00 Blood Pressure 92/53 L 07/06/19 10:00 O2 Sat by Pulse Oximetry (%) 99 07/06/19 08:35 Cardiovascular: Yes: Regular Rate and Rhythm, S1, S2 Respiratory: Yes: Mechanically Ventilated Gastrointestinal: Yes: Normal Bowel Sounds, Soft. No: Tenderness Edema: No Labs: CBC, BMP 07/06/19 06:00 07/06/19 06:00 Problem List - Problems (1) Hypercholesterolemia Code(s): E78.00 - PURE HYPERCHOLESTEROLEMIA, UNSPECIFIED (2) JELANI (acute kidney injury) Code(s): N17.9 - ACUTE KIDNEY FAILURE, UNSPECIFIED (3) Acute urinary tract infection Code(s): N39.0 - URINARY TRACT INFECTION, SITE NOT SPECIFIED (4) Dementia Code(s): F03.90 - UNSPECIFIED DEMENTIA WITHOUT BEHAVIORAL DISTURBANCE (5) Generalized weakness Code(s): R53.1 - WEAKNESS (6) Hypertension Code(s): I10 - ESSENTIAL (PRIMARY) HYPERTENSION (7) Anemia Code(s): D64.9 - ANEMIA, UNSPECIFIED (8) Diabetes Code(s): E11.9 - TYPE 2 DIABETES MELLITUS WITHOUT COMPLICATIONS Qualifiers: Diabetes mellitus complication status: without complication (9) NSTEMI (non-ST elevated myocardial infarction) Code(s): I21.4 - NON-ST ELEVATION (NSTEMI) MYOCARDIAL INFARCTION (10) Respiratory failure Code(s): J96.90 - RESPIRATORY FAILURE, UNSP, UNSP W HYPOXIA OR HYPERCAPNIA Qualifiers: Chronicity: acute Respiratory failure complication: hypoxia Qualified Code(s): J96.01 - Acute respiratory failure with hypoxia Assessment/Plan 1. Acute hypoxemic respiratory failure requiring intubation and mechanical ventilation 2. Post septic shock LLL pneumonia and urosepsis 3. Hypercholesterolemia 4. Hypothyoidism 5. NIDDM 6. Cerebrovascular disease, h/o TIA 7. Organic brain/dementia 8. Anemia 9. Demand ischemia 10. JELANI due to septic shock 11. Moderate 12. Moderate TR 13. Pleural effusion PLAN: 1. Vent management as per ICU team 2. Empiric antibiotic coverage 3. DVT prophylaxis 4. Trend troponin 5. Echocardiography reviewed. Moderate , pleural effusion, moderate TR 6. Restart Metoprolol and Quinapril as BP tolerates and clinically feasible Continue supportive care Saad Linton MD
[2019-07-06 10:51] LABS: ANISOCYTOSIS 1+; MACROCYTOSIS 0; OVALOCYTE 1+; PLATELET ESTIMATE NORMAL
--- NOTE | 2019-07-06 12:54 | PN ---
Teaching Attending Note Name of Resident: Orin Alonzo ATTENDING PHYSICIAN STATEMENT I saw and evaluated the patient. I reviewed the resident's note and discussed the case with the resident. I agree with the resident's findings and plan as documented. SUBJECTIVE: Pt seen and examined in the ICU. Intubated, more arousable. Tolerated CPAP/PS and subsequently extubated during rounds. OBJECTIVE: Vital Signs Period Temp Pulse Resp BP Sys/Tolentino Pulse Ox Last 24 Hr 98.4 F-101.6 F 72-84 14-28 92-164/53-79 88-99 Intake & Output 07/03/19 07/04/19 07/05/19 07/06/19 23:59 23:59 23:59 23:59 Intake Total 4850 5473 1915 640 Output Total 700 1200 1900 600 Balance 4150 4273 15 40 Weight 53.5 kg 55.157 kg 58.967 kg 58.967 kg Gen: extubated Heart: RRR Lung: decreased breath sounds at the bases Abd: soft, nontender Ext: + edema CBC, BMP 07/06/19 06:00 07/06/19 06:00 Active Medications Acetaminophen (Ofirmev Injection -) 1,000 mg IVPB Q6H PRN PRN Reason: FEVER Last Admin: 07/06/19 03:05 Dose: 1,000 mg Aspirin (Asa -) 81 mg PO DAILY [facility] Last Admin: 07/06/19 09:40 Dose: 81 mg Atorvastatin Calcium (Lipitor -) 10 mg PO HS [facility] Last Admin: 07/05/19 21:46 Dose: 10 mg Chlorhexidine Gluconate (Hibiclens For Decolonization -) 1 applic TP HS [facility] Last Admin: 07/05/19 21:47 Dose: 1 applic Heparin Sodium (Porcine) (Heparin -) 5,000 unit SQ TID [facility] Last Admin: 07/06/19 06:09 Dose: 5,000 unit Azithromycin (Zithromax 500mg Ivpb (Pre-Docked)) 500 mg in 250 mls @ 250 mls/ hr IVPB DAILY [facility] Last Admin: 07/06/19 09:37 Dose: 250 mls/hr Piperacillin Sod/Tazobactam (Sod 2.25 gm/ Dextrose) 50 mls @ 100 mls/hr IVPB Q8H-IV [facility]; Protocol Last Admin: 07/06/19 09:40 Dose: 100 mls/hr Propofol (Diprivan -) 1,000,000 mcg in 100 mls @ 1.655 mls/hr IVPB TITR [facility]; Protocol Last Titration: 07/06/19 07:00 Dose: 0 mcg/kg/min, 0 mls/hr Insulin Aspart (Novolog Vial Sliding Scale -) 1 vial SQ Q6H [facility]; Protocol Last Admin: 07/06/19 06:09 Dose: 2 unit Mupirocin (Bactroban Ointment (For Decolonization) -) 1 applic NS BID [facility] Stop: 07/08/19 09:59 Last Admin: 07/05/19 21:46 Dose: 1 applic Pantoprazole Sodium (Protonix Iv) 40 mg IVPUSH DAILY [facility] Last Admin: 07/06/19 09:40 Dose: 40 mg ASSESSMENT AND PLAN: Acute Hypoxic Respiratory Failure Pneumonia UTI Bacteremia Septic Shock Acute Kidney Injury Lactic Acidosis +Troponins likely Demand Ischemia Aortic Stenosis Pulmonary HTN DM Hypothyroidism Hypercholesterolemia h/o CVA Dementia Anemia - pt extubated - continue antibiotics - f/u cultures - monitor urine output, creatinine - off pressors, maintain MAP >65 - increase free water - aspiration precautions - DVT/GI prophylaxis - continue ICU monitoring critical care time spent in reviewing chart, evaluating patient and formulating plan 35 min
[2019-07-06] MEDS: MUPIROCIN 2% TOPICAL OINTMENT FOR DECOLONIZATION NS SCH ×2 (13:38→21:54)
--- NOTE | 2019-07-06 14:00 | PN ---
Physical Exam: SUBJECTIVE: Patient seen and examined. Extubated today. Satting well. OBJECTIVE: Vital Signs Period Temp Pulse Resp BP Sys/Tolentino Pulse Ox Last 24 Hr 98.4 F-101.6 F 72-84 14-28 92-164/53-79 88-99 GENERAL: Sedated HEENT: R IJ central line C/D/I no signs of infection. NGT removed LUNGS: CTABL HEART: RRR S1S2 heard no mrg ABDOMEN: Soft NTND. + BS. EXTREMITIES: 2+ pulses, warm, well-perfused, mild UE nonpitting edema Laboratory Results - last 24 hr 07/05/19 07/05/19 07/05/19 12:38 18:28 21:40 WBC RBC Hgb Hct MCV MCH MCHC RDW Plt Count MPV Absolute Neuts (auto) Neutrophils % Neutrophils % (Manual) Band Neutrophils % Lymphocytes % Lymphocytes % (Manual) Monocytes % Monocytes % (Manual) Eosinophils % Eosinophils % (Manual) Basophils % Basophils % (Manual) Myelocytes % (Man) Promyelocytes % (Man) Blast Cells % (Manual) Nucleated RBC % Metamyelocytes Hypochromia Platelet Estimate Polychromasia Poikilocytosis Anisocytosis Microcytosis Macrocytosis Ovalocytes Cutler Cells Sodium Potassium Chloride Carbon Dioxide Anion Gap BUN Creatinine Est GFR (CKD-EPI)AfAm Est GFR (CKD-EPI)NonAf POC Glucometer 191 190 Random Glucose Calcium Phosphorus Magnesium Total Bilirubin AST ALT Alkaline Phosphatase Creatine Kinase Creatine Kinase Index CK-MB (CK-2) Troponin I Total Protein Albumin Stool Occult Blood Negative 07/06/19 07/06/19 07/06/19 05:58 06:00 06:00 WBC 6.2 RBC 2.51 L Hgb 7.4 L Hct 22.3 L MCV 88.8 MCH 29.4 MCHC 33.1 RDW 14.5 Plt Count 139 MPV 8.9 Absolute Neuts (auto) 5.2 Neutrophils % 83.5 H Neutrophils % (Manual) 85.0 H Band Neutrophils % 0.0 Lymphocytes % 11.0 Lymphocytes % (Manual) 8.0 D Monocytes % 4.4 Monocytes % (Manual) 2 L Eosinophils % 1.0 Eosinophils % (Manual) 2.0 Basophils % 0.1 Basophils % (Manual) 0.0 Myelocytes % (Man) 2 D Promyelocytes % (Man) 0 Blast Cells % (Manual) 0 Nucleated RBC % 0 Metamyelocytes 0 Hypochromia 0 Platelet Estimate Normal Polychromasia 0 Poikilocytosis 1+ Anisocytosis 1+ Microcytosis 1+ Macrocytosis 0 Ovalocytes 1+ Anai Cells 1+ Sodium 148 H Potassium 3.6 Chloride 118 H Carbon Dioxide 23 Anion Gap 7 L BUN 33.3 H Creatinine 1.1 Est GFR (CKD-EPI)AfAm 51.55 Est GFR (CKD-EPI)NonAf 44.48 POC Glucometer 184 Random Glucose 176 H Calcium 7.5 L Phosphorus 2.9 Magnesium 1.8 Total Bilirubin 0.4 AST 104 H ALT 47 Alkaline Phosphatase 169 H Creatine Kinase 162 Creatine Kinase Index 0.6 CK-MB (CK-2) 1.1 Troponin I 0.09 H Total Protein 4.6 L Albumin 1.7 L Stool Occult Blood 07/06/19 12:46 WBC RBC Hgb Hct MCV MCH MCHC RDW Plt Count MPV Absolute Neuts (auto) Neutrophils % Neutrophils % (Manual) Band Neutrophils % Lymphocytes % Lymphocytes % (Manual) Monocytes % Monocytes % (Manual) Eosinophils % Eosinophils % (Manual) Basophils % Basophils % (Manual) Myelocytes % (Man) Promyelocytes % (Man) Blast Cells % (Manual) Nucleated RBC % Metamyelocytes Hypochromia Platelet Estimate Polychromasia Poikilocytosis Anisocytosis Microcytosis Macrocytosis Ovalocytes Cutler Cells Sodium Potassium Chloride Carbon Dioxide Anion Gap BUN Creatinine Est GFR (CKD-EPI)AfAm Est GFR (CKD-EPI)NonAf POC Glucometer 210 Random Glucose Calcium Phosphorus Magnesium Total Bilirubin AST ALT Alkaline Phosphatase Creatine Kinase Creatine Kinase Index CK-MB (CK-2) Troponin I Total Protein Albumin Stool Occult Blood Active Medications Generic Name Dose Route Start Last Admin Trade Name Freq PRN Reason Stop Dose Admin Acetaminophen 1,000 mg 07/05/19 11:04 07/06/19 03:05 Ofirmev Injection - IVPB 1,000 mg Q6H PRN Administration FEVER Aspirin 81 mg 07/05/19 11:45 07/06/19 09:40 Asa - PO 81 mg DAILY SILVINO Administration Atorvastatin Calcium 10 mg 07/05/19 22:00 07/05/19 21:46 Lipitor - PO 10 mg HS SILVINO Administration Chlorhexidine Gluconate 1 applic 07/03/19 22:00 07/05/19 21:47 Hibiclens For Decolonization - TP 1 applic HS SILVINO Administration Heparin Sodium (Porcine) 5,000 unit 07/03/19 06:00 07/06/19 06:09 Heparin - SQ 5,000 unit TID SILVINO Administration Azithromycin 500 mg in 250 mls @ 250 mls/hr 07/04/19 10:00 07/06/19 09:37 Zithromax 500mg Ivpb (Pre-Docked) IVPB 250 mls/hr DAILY SILVINO Administration Piperacillin Sod/Tazobactam 50 mls @ 100 mls/hr 07/03/19 18:00 07/06/19 09:40 Sod 2.25 gm/ Dextrose IVPB 100 mls/hr Q8H-IV SILVINO Administration Protocol Propofol 1,000,000 mcg in 100 mls @ 1.655 mls/hr 07/05/19 01:45 07/06/19 07:00 Diprivan - IVPB 0 mcg/kg/min TITR SILVINO 0 mls/hr Titration Protocol 5 MCG/KG/MIN Insulin Aspart 1 vial 07/04/19 00:30 07/06/19 06:09 Novolog Vial Sliding Scale - SQ 2 unit Q6H SILVINO Administration Protocol Mupirocin 1 applic 07/03/19 10:00 07/05/19 21:46 Bactroban Ointment (For Decolonization) - NS 07/08/19 09:59 1 applic BID SILVINO Administration Pantoprazole Sodium 40 mg 07/05/19 11:45 07/06/19 09:40 Protonix Iv IVPUSH 40 mg DAILY SILVINO Administration ASSESSMENT/PLAN: 89 y.o. F PMH TIA, anemia, dementia, HTN, NIDDM, HLD presented for respiratory failure w/ sepsis 2/2 bacteremia & UTI. 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 Linton) -monitor vitals closely #Pulm -extubated today -CXR today: improved -c/w zosyn, zithromax -legionella ag neg, f/u S. pneumo ag -Aspiration precautions #Heme -anemia hx -Hgb 7.4, stable; s/p 1U pRBC total -trend H&H transfuse prn #Renal -moreira in place monitor outputs -JELANI resolved -C/w free water via NGT 300mL q8h -Nephro following #ID -gm + cocci bacteremia s. epidermidis; repeat blood cx's negative -+ enterococcal UTI -Sputum cx + LFNB -C/w Azithromycin + zosyn -ID following # -UA + on admission, Urine culture 07/03/19 + Enterococcus -continuing abx #PPX -dvt, heparin SQ -GI, protonix 40mg IV daily #FEN -no standing fluids; free water 300 cc Q8H -trend bmp replete prn -pending S&S eval #Dispo Continue ICU monitoring. Visit type - Emergency Visit Emergency Visit: No - New Patient This patient is new to me today: No - Critical Care Critical Care patient: Yes Total Critical Care Time (in minutes): 36 Critical Care Statement: The care of this patient involved high complexity decision making to prevent further life threatening deterioration of the p atient's condition and/or to evaluate & treat vital organ system(s) failure or risk of failure. ATTENDING PHYSICIAN STATEMENT I saw and evaluated the patient. I reviewed the resident's note and discussed the case with the resident. I agree with the resident's findings and plan as documented. SUBJECTIVE: OBJECTIVE: ASSESSMENT AND PLAN:
--- NOTE | 2019-07-06 15:35 | PN ---
Progress Note, Physician History of Present Illness: Pt seen and examined at bedside. She remains in the ICU. She remains intubated. - Current Medication List Current Medications: Active Medications Acetaminophen (Ofirmev Injection -) 1,000 mg IVPB Q6H PRN PRN Reason: FEVER Last Admin: 07/06/19 03:05 Dose: 1,000 mg Aspirin (Asa -) 81 mg PO DAILY [facility] Last Admin: 07/06/19 09:40 Dose: 81 mg Atorvastatin Calcium (Lipitor -) 10 mg PO HS [facility] Last Admin: 07/05/19 21:46 Dose: 10 mg Chlorhexidine Gluconate (Hibiclens For Decolonization -) 1 applic TP HS [facility] Last Admin: 07/05/19 21:47 Dose: 1 applic Heparin Sodium (Porcine) (Heparin -) 5,000 unit SQ TID [facility] Last Admin: 07/06/19 14:02 Dose: 5,000 unit Azithromycin (Zithromax 500mg Ivpb (Pre-Docked)) 500 mg in 250 mls @ 250 mls/ hr IVPB DAILY [facility] Last Admin: 07/06/19 09:37 Dose: 250 mls/hr Piperacillin Sod/Tazobactam (Sod 2.25 gm/ Dextrose) 50 mls @ 100 mls/hr IVPB Q8H-IV SILVINO; Protocol Last Admin: 07/06/19 09:40 Dose: 100 mls/hr Propofol (Diprivan -) 1,000,000 mcg in 100 mls @ 1.655 mls/hr IVPB TITR [facility]; Protocol Last Titration: 07/06/19 07:00 Dose: 0 mcg/kg/min, 0 mls/hr Insulin Aspart (Novolog Vial Sliding Scale -) 1 vial SQ Q6H [facility]; Protocol Last Admin: 07/06/19 13:58 Dose: 4 unit Mupirocin (Bactroban Ointment (For Decolonization) -) 1 applic NS BID [facility] Stop: 07/08/19 09:59 Last Admin: 07/06/19 13:38 Dose: 1 applic Pantoprazole Sodium (Protonix Iv) 40 mg IVPUSH DAILY [facility] Last Admin: 07/06/19 09:40 Dose: 40 mg - Objective Vital Signs: Vital Signs Temperature 98.7 F 07/06/19 14:00 Pulse Rate 71 07/06/19 14:00 Respiratory Rate 18 07/06/19 14:00 Blood Pressure 164/72 07/06/19 14:00 O2 Sat by Pulse Oximetry (%) 95 07/06/19 09:00 Constitutional: Yes: Calm Eyes: Yes: Conjunctiva Clear HENT: Yes: Atraumatic Cardiovascular: Yes: S1, S2 Respiratory: Yes: Mechanically Ventilated Gastrointestinal: Yes: Soft Genitourinary: Yes: [place] Present Musculoskeletal: Yes: Muscle Weakness Edema: No Neurological: Yes: Lethargy Labs: CBC, BMP 07/06/19 06:00 07/06/19 06:00 INR, PTT INR 1.65 (0.83-1.09) H 07/03/19 01:04 Assessment/Plan Current Medications Generic Name Dose Route Start Last Admin Trade Name Freq PRN Reason Stop Dose Admin Acetaminophen 1,000 mg 07/05/19 11:04 07/06/19 03:05 Ofirmev Injection - IVPB 1,000 mg Q6H PRN Administration FEVER Aspirin 81 mg 07/05/19 11:45 07/06/19 09:40 Asa - PO 81 mg DAILY SILVINO Administration Atorvastatin Calcium 10 mg 07/05/19 22:00 07/05/19 21:46 Lipitor - PO 10 mg HS SILVINO Administration Chlorhexidine Gluconate 1 applic 07/03/19 22:00 07/05/19 21:47 Hibiclens For Decolonization - TP 1 applic HS SILVINO Administration Heparin Sodium (Porcine) 5,000 unit 07/03/19 06:00 07/06/19 14:02 Heparin - SQ 5,000 unit TID SILVINO Administration Azithromycin 500 mg in 250 mls @ 250 mls/hr 07/04/19 10:00 07/06/19 09:37 Zithromax 500mg Ivpb (Pre-Docked) IVPB 250 mls/hr DAILY SILVINO Administration Piperacillin Sod/Tazobactam 50 mls @ 100 mls/hr 07/03/19 18:00 07/06/19 09:40 Sod 2.25 gm/ Dextrose IVPB 100 mls/hr Q8H-IV SILVINO Administration Protocol Propofol 1,000,000 mcg in 100 mls @ 1.655 mls/hr 07/05/19 01:45 07/06/19 07: 00 Diprivan - IVPB 0 mcg/kg/min TITR SILVINO 0 mls/hr Titration Protocol 5 MCG/KG/MIN Insulin Aspart 1 vial 07/04/19 00:30 07/06/19 13:58 Novolog Vial Sliding Scale - SQ 4 unit Q6H SILVINO Administration Protocol Mupirocin 1 applic 07/03/19 10:00 07/06/19 13:38 Bactroban Ointment (For Decolonization) - NS 07/08/19 09:59 1 applic BID SILVINO Administration Pantoprazole Sodium 40 mg 07/05/19 11:45 07/06/19 09:40 Protonix Iv IVPUSH 40 mg DAILY SILVINO Administration 1. JELANI 2. Metabolic acidosis 3. Hypernatremia 4. Sepsis 5. Respiratory failure 6. Anemia 7. PNA 8. hypokalemia Plan - renal function stabilizing - cont free water with feeds - if extubated and nt removed, can use d5w - monitor sodium - avoid nephrotoxins - vent support
--- NOTE | 2019-07-06 17:14 | PN ---
Progress Note (short form) - Note Progress Note: Hospitalist Medicine Has been off pressors. Extubated after rounds. Vitals 07/06/19 14:00 Temperature 98.7 F Pulse Rate 71 Respiratory 18 Rate Blood Pressure 164/72 Physical Exam general: extubated. resting in bed heent: NCAT, PERRLA neck: supple cardio: S1, S2 RRR. no r/m/g pulm: +decreased breath sounds. no accessory m usage abdomen: soft, nontender, nondistended LE: 2+ pulses, 1+ edema +moreira +intubated (07/03); extubated (07/06) +R IJ line (07/03) Laboratory Tests 07/06/19 06:00 Sodium 148 H Potassium 3.6 Chloride 118 H Carbon Dioxide 23 Anion Gap 7 L BUN 33.3 H Creatinine 1.1 Random Glucose 176 H Calcium 7.5 L AST 104 H ALT 47 Alkaline Phosphatase 169 H Creatine Kinase 162 Creatine Kinase Index 0.6 CK-MB (CK-2) 1.1 Troponin I 0.09 H Total Protein 4.6 L Albumin 1.7 L Microbiology 07/03/19 17:20 Urine - Urine Moreira Legionella Antigen - Final 07/03/19 17:20 Sputum - Endotrachea Suction/Ventilator Gram Stain - Final 07/03/19 02:14 Urine - Urine Moreira Urine Culture - Final Enterococcus Faecalis 07/03/19 01:04 Blood - Peripheral Venous Blood Culture - Final Staphylococcus Epidermidis 07/04/19 05:50 Blood - Peripheral Venous Blood Culture - Preliminary NO GROWTH OBTAINED AFTER 48 HOURS, INCUBATION TO CONTINUE FOR 3 DAYS. 07/04/19 05:25 Blood - Peripheral Venous Blood Culture - Preliminary NO GROWTH OBTAINED AFTER 48 HOURS, INCUBATION TO CONTINUE FOR 3 DAYS. 07/03/19 17:20 Urine - Urine Moreira Streptococcus pneumoniae Antigen (M - Preliminary 07/03/19 17:20 Sputum - Endotrachea Suction/Ventilator Sputum Culture - Preliminary Lactose Fermenting Neg Bacilli Lactose Fermenting Neg Bacilli#3 07/03/19 01:22 Blood - Peripheral Venous Blood Culture - Preliminary NO GROWTH OBTAINED AFTER 72 HOURS, INCUBATION TO CONTINUE FOR 2 DAYS. Imaging 07/03/19: CXR: new atelectasis, infiltrate at L base. ETT well above christine. sclerotic knob. degenerative changes. 07/03/19 AXR: degenerative changes, OGT with tip in LUQ, ETT present with tip well above christine 07/03/19 CXR: pulm and pleural changes at L base, paucity of bowel gas 07/03/19: CXR: ETT tip below clavicular head level. NGT with tip in stomach. new R IJ ; tip in SVC. no pneumo. retrocardiac area is dense. sclerotic knob. large heart. 07/04/19: ETT, NGT, R jugular line, dense L base, sclerotic knob 07/05/19: CXR: ETT, R IJ line, NGT persist. sclerotic knob, large heart, dense L base, congestive changeshave increased slightly 07/06/19: CXR: in Am, bibasilar pulm pleural changes with ETT, NGT, R jugular line persist. cardiomegaly, sclerotic knob, dense L base 07/03/19: EKG: sinus tach, rate 112bpm, qtc 505ms. ST changes lateral leads 07/03/19: EKG: NSR, rate 94bpm, qtc 487ms 07/04/19: EKG: NSR 61bpm, qtc 446ms. 07/05/19: ECHO: LV normal, LVSF normal, EF 55-60%, mild MR, mod TR, mod valvular no pericardial effusion, +pleural effusion Assessment/Plan 89 y/o F h/o TIA, chronic anemia, dementia, HTN, NIDDM, HLD, who presented with septic shock due to acute hypoxemic respiratory failure 2/2 LLL CAP and urosepsis. #Acute hypoxemic RF 2/2 LLL CAP -c/w vanc x1, zosyn, zithro (06/03) -extubated (07/06) -initial blood cx: +staph coag (-) (?) contaminant. -sputum: lact (-) bacilli -legionella (-), repeat blood cx (-) -IV tylenol PRN for fever -Pulm: Dr. Fitzpatrick -ID: Dr. Harrell #Septic shock 2/2 urosepsis, LLL CAP -off pressors, R IJ line to be removed when off x 24hrs -most recent lactic 1.3 -maintain MAP > 65 -ucx: (+)e.faecalis >100,000 cfu -c/w zosyn zithro (06/03) -c/w harish -ID: Dr. Harrell #Hypernatremia -free h20 deficit: 1.5L -c/w free water via feeds -can start on d5w, since extubated -f/u repeat Na #JELANI 2/2 hypoperfusion -resolved -c/t monitor #Tropinemia likely 2/2 demand -trops trending down. do not need to cont following -ECHO noted above -Cardio: Dr. Bermudez #T2DM -c/w ISS, BGM ACHS -BG control < 180 -hold metformin #HTN -restart toprol, quinapril when BP tolerates #HLD -restart statin #hx TIA -c/w asa, statin #F/E/N off IVF continue to follow lytes TF glucerna #PPX DVT: on hep 5k sq tid GI: protonix #Dispo cont'd ICU monitoring
[2019-07-06 17:21] LABS: BLOOD UREA NITROGEN 29.4 mg/dL (7-18); CALCIUM 7.6 mg/dL (8.5-10.1); POTASSIUM 3.3 mmol/L (3.5-5.1)
--- NOTE | 2019-07-06 17:42 | PN ---
Teaching Attending Note Name of Resident: Rupinder Honeycutt ATTENDING PHYSICIAN STATEMENT I saw and evaluated the patient. I reviewed the resident's note and discussed the case with the resident. I agree with the resident's findings and plan as documented. SUBJECTIVE: Patient extubated this afternoon. Comfortable. OBJECTIVE: Vital Signs Period Temp Pulse Resp BP Sys/Tolentino Pulse Ox Last 24 Hr 98.7 F-101.6 F 71-84 14-28 92-164/53-79 88-99 HEART: S1S2, RRR LUNGS: Clear ABDOMEN: Soft, non-tender, non-distended, normal BS EXTREMITIES: Trace edema Laboratory Results - last 24 hr 07/05/19 07/05/19 07/06/19 18:28 21:40 05:58 WBC RBC Hgb Hct MCV MCH MCHC RDW Plt Count MPV Absolute Neuts (auto) Neutrophils % Neutrophils % (Manual) Band Neutrophils % Lymphocytes % Lymphocytes % (Manual) Monocytes % Monocytes % (Manual) Eosinophils % Eosinophils % (Manual) Basophils % Basophils % (Manual) Myelocytes % (Man) Promyelocytes % (Man) Blast Cells % (Manual) Nucleated RBC % Metamyelocytes Hypochromia Platelet Estimate Polychromasia Poikilocytosis Anisocytosis Microcytosis Macrocytosis Ovalocytes Fenton Cells Sodium Potassium Chloride Carbon Dioxide Anion Gap BUN Creatinine Est GFR (CKD-EPI)AfAm Est GFR (CKD-EPI)NonAf POC Glucometer 191 190 184 Random Glucose Calcium Phosphorus Magnesium Total Bilirubin AST ALT Alkaline Phosphatase Creatine Kinase Creatine Kinase Index CK-MB (CK-2) Troponin I Total Protein Albumin 07/06/19 07/06/19 07/06/19 06:00 06:00 12:46 WBC 6.2 RBC 2.51 L Hgb 7.4 L Hct 22.3 L MCV 88.8 MCH 29.4 MCHC 33.1 RDW 14.5 Plt Count 139 MPV 8.9 Absolute Neuts (auto) 5.2 Neutrophils % 83.5 H Neutrophils % (Manual) 85.0 H Band Neutrophils % 0.0 Lymphocytes % 11.0 Lymphocytes % (Manual) 8.0 D Monocytes % 4.4 Monocytes % (Manual) 2 L Eosinophils % 1.0 Eosinophils % (Manual) 2.0 Basophils % 0.1 Basophils % (Manual) 0.0 Myelocytes % (Man) 2 D Promyelocytes % (Man) 0 Blast Cells % (Manual) 0 Nucleated RBC % 0 Metamyelocytes 0 Hypochromia 0 Platelet Estimate Normal Polychromasia 0 Poikilocytosis 1+ Anisocytosis 1+ Microcytosis 1+ Macrocytosis 0 Ovalocytes 1+ Anai Cells 1+ Sodium 148 H Potassium 3.6 Chloride 118 H Carbon Dioxide 23 Anion Gap 7 L BUN 33.3 H Creatinine 1.1 Est GFR (CKD-EPI)AfAm 51.55 Est GFR (CKD-EPI)NonAf 44.48 POC Glucometer 210 Random Glucose 176 H Calcium 7.5 L Phosphorus 2.9 Magnesium 1.8 Total Bilirubin 0.4 AST 104 H ALT 47 Alkaline Phosphatase 169 H Creatine Kinase 162 Creatine Kinase Index 0.6 CK-MB (CK-2) 1.1 Troponin I 0.09 H Total Protein 4.6 L Albumin 1.7 L 07/06/19 07/06/19 16:00 17:33 WBC RBC Hgb Hct MCV MCH MCHC RDW Plt Count MPV Absolute Neuts (auto) Neutrophils % Neutrophils % (Manual) Band Neutrophils % Lymphocytes % Lymphocytes % (Manual) Monocytes % Monocytes % (Manual) Eosinophils % Eosinophils % (Manual) Basophils % Basophils % (Manual) Myelocytes % (Man) Promyelocytes % (Man) Blast Cells % (Manual) Nucleated RBC % Metamyelocytes Hypochromia Platelet Estimate Polychromasia Poikilocytosis Anisocytosis Microcytosis Macrocytosis Ovalocytes Fenton Cells Sodium 147 H Potassium 3.3 L Chloride 116 H Carbon Dioxide 25 Anion Gap 6 L BUN 29.4 H Creatinine 1.0 Est GFR (CKD-EPI)AfAm 57.84 Est GFR (CKD-EPI)NonAf 49.91 POC Glucometer 102 Random Glucose 132 H Calcium 7.6 L Phosphorus Magnesium Total Bilirubin AST ALT Alkaline Phosphatase Creatine Kinase Creatine Kinase Index CK-MB (CK-2) Troponin I Total Protein Albumin Current Medications Generic Name Dose Route Start Last Admin Trade Name Freq PRN Reason Stop Dose Admin Acetaminophen 1,000 mg 07/05/19 11:04 07/06/19 03:05 Ofirmev Injection - IVPB 1,000 mg Q6H PRN Administration FEVER Aspirin 81 mg 07/05/19 11:45 07/06/19 09:40 Asa - PO 81 mg DAILY SILVINO Administration Atorvastatin Calcium 10 mg 07/05/19 22:00 07/05/19 21:46 Lipitor - PO 10 mg HS SILVINO Administration Chlorhexidine Gluconate 1 applic 07/03/19 22:00 07/05/19 21:47 Hibiclens For Decolonization - TP 1 applic HS SIL[facility]INO Administration Heparin Sodium (Porcine) 5,000 unit 07/03/19 06:00 07/06/19 14:02 Heparin - SQ 5,000 unit TID SILVINO Administration Azithromycin 500 mg in 250 mls @ 250 mls/hr 07/04/19 10:00 07/06/19 09:37 Zithromax 500mg Ivpb (Pre-Docked) IVPB 250 mls/hr DAILY [facility] Administration Piperacillin Sod/Tazobactam 50 mls @ 100 mls/hr 07/03/19 18:00 07/06/19 09:40 Sod 2.25 gm/ Dextrose IVPB 100 mls/hr Q8H-IV S[facility]INO Administration Protocol Dextrose 1,000 mls @ 75 mls/hr 07/06/19 17:45 D5w - IV Q13H SILVINO Insulin Aspart 1 vial 07/04/19 00:30 07/06/19 13:58 Novolog Vial Sliding Scale - SQ 4 unit Q6H S[facility]INO Administration Protocol Mupirocin 1 applic 07/03/19 10:00 07/06/19 13:38 Bactroban Ointment (For Decolonization) - NS 07/08/19 09:59 1 applic BID SILVINO Administration Pantoprazole Sodium 40 mg 07/05/19 11:45 07/06/19 09:40 Protonix Iv IVPUSH 40 mg DAILY [facility] Administration ASSESSMENT AND PLAN: This is an 89 year old woman with a history of HTN, hyperlipidemia, type 2 DM, anemia, TIA, dementia who presented to the ED with respiratory distress. 1. Acute hypoxic respiratory failure secondary to pneumonia - Extubated today 2. Septic shock pneumonia, E. faecalis UTI - Shock resolved - Continue Zosyn, azithromycin 3. Acute kidney injury secondary to hypoperfusion - Resolved 4. Demand ischemia 5. Hypernatremia - Improving 6. Hypokalemia - Replete potassium 7. Hypophosphatemia - Resolved 8. Type 2 DM - Metformin held - Continue Novolog sliding scale 9. HTN - Accupril, Toprol XL held secondary to septic shock 10. Hyperlipidemia - Continue Lipitor 11. Anemia - Transfused 1 unit PRBCs 07/04 - Monitor hgb 12. History of TIA - Continue aspirin, Lipitor 13. DVT prophylaxis - Heparin subq 14. Stress ulcer prophylaxis - Protonix IV
[2019-07-06] MEDS ORDERED: DEXTROSE 5%-WATER - 1,000 ML IV SCH (17:45)
[2019-07-06] MEDS ORDERED: POTASSIUM PHOSPHATE IVPB SCH (17:49)
[2019-07-06] MEDS ORDERED: WATER IVPB SCH (17:49)
[2019-07-06] MEDS ORDERED: DEXTROSE 5% IVPB SCH (17:49)
[2019-07-06] MEDS ORDERED: POTASSIUM PHOSPHATE 30 MM in DEXTROSE 5%-WATER - 250 ML IVPB ONE (18:15)
[2019-07-06] MEDS: ATORVASTATIN CA 10 MG TABLET (FP) PO SCH (21:53)
[2019-07-06] MEDS: CHLORHEXIDINE GLUCONATE 4% CLEANSER FOR DECOLONIZATION TP SCH (21:53)
[2019-07-07] MEDS: INSULIN SLIDING SCALE (NOVOLOG) 1 VIAL SQ SCH ×5 (00:15→23:34)
[2019-07-07] MEDS ORDERED: PIPERACILLIN/TAZOBACTAM 2.25 GM VIAL IVPB ONE ×3 (00:30→16:57)
[2019-07-07] MEDS ORDERED: DEXTROSE 5%-WATER - 50 ML IVPB ONE ×3 (00:30→16:58)
[2019-07-07] MEDS: PIPERACILLIN/TAZOB 2.25 GM 2.25 GM in DEXTROSE 5%-WATER - 50 ML IVPB SCH ×3 (01:08→17:11)
[2019-07-07] MEDS: HEPARIN NA (PORCINE) 5,000 UNITS/ML 1ML VIAL SQ SCH ×3 (06:06→22:04)
[2019-07-07 07:01] LABS: HEMATOCRIT 23.2 % (32.4-45.2); HEMOGLOBIN 7.8 GM/dL (10.7-15.3); MCH 29.9 pg (25.7-33.7); MCHC 33.7 g/dl (32.0-36.0); MEAN CELL VOLUME 88.8 fl (80-96); MEAN PLT VOLUME 8.6 fl (7.5-11.1); PLATELET COUNT 147 K/MM3 (134-434); RBC 2.61 M/mm3 (3.60-5.2); RDW 14.3 % (11.6-15.6); WHITE BLOOD COUNT 5.7 K/mm3 (4.0-10.0)
[2019-07-07 07:34] LABS: ALBUMIN 1.7 g/dl (3.4-5.0); BILIRUBIN,TOTAL 0.4 mg/dL (0.2-1); CALCIUM 7.4 mg/dL (8.5-10.1); CREATININE 0.9 mg/dL (0.55-1.3); MAGNESIUM 1.6 mg/dL (1.8-2.4); PHOSPHOROUS 3.5 mg/dL (2.5-4.9); POTASSIUM 3.7 mmol/L (3.5-5.1); TOT PROT 4.8 g/dl (6.4-8.2)
[2019-07-07] MEDS ORDERED: MAGNESIUM SULF 50% (8.12 MEQ/2 ML-1 GM VIAL) IVPB ONE (07:39)
[2019-07-07] MEDS ORDERED: ALBUTEROL SO4 2.5/IPRATROPIUM 0.5 INH SOL 3 ML VIAL.NEB. NEB PRN ×2 (08:58→20:09)
[2019-07-07] MEDS: AZITHROMYCIN IVPB 500 MG/250 ML BAG IVPB SCH (09:14)
[2019-07-07] MEDS: MUPIROCIN 2% TOPICAL OINTMENT FOR DECOLONIZATION NS SCH (09:15)
[2019-07-07] MEDS: PANTOPRAZOLE SODIUM 40 MG VIAL IVPUSH SCH (09:15)
[2019-07-07] MEDS: ASPIRIN 81 MG CHEWABLE TABLETS PO SCH (09:15)
--- NOTE | 2019-07-07 09:34 | CONSULT ---
Admitting History and Physical - Primary Care Physician PCP: Cordell Hanson - Admission History of Present Illness: Per EMR- 89 y/o F h/o TIA, chronic anemia, dementia, HTN, NIDDM, HLD, who presented 07/03 with septic shock due to acute hypoxemic respiratory failure 2/2 LLL CAP and urosepsis. Pt intubated 07/03 and extubated 07/06. NGT/Glucerna ordered 07/05. Pt lives with son's family and is able to ambulate with a walker at baseline. She is mostly non-verbal but does answer "yes" or "no" to simple questions. This is my first consult with this pt. 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 Cardiovascular: Yes: HTN, Hyperlipdemia Pulmonary: Yes: Bronchitis, Sleep Apnea, Other (Bronchiectasis) Gastrointestinal: Yes: GERD, Other (rectal prolapse post operative suspension procedure) Hepatobiliary: Yes: Cholelithiasis ...: No Heme/Onc: Yes: Anemia Psych: Yes: Anxiety, Schizophrenia Rheumatology: Yes: Other (chondrocalcinosis) Endocrine: Yes: Diabetes Mellitus - Smoking History Smoking history: Never smoked Have you smoked in the past 12 months: No Aproximately how many cigarettes per day: 0 - Alcohol/Substance Use Hx Alcohol Use: No - Social History ADL: Family Assistance History of Recent Travel: No History - Admission Reason For Visit: RESPIRATORY DISTRESS - Hearing Hearing: Impaired Hearing Aide: Yes With Patient: No Speech Evaluation - Communication Primary Language: WELSH Recommendations - Speech Evaluation, Impression/Plan Impression: Chart reviewed. Too lethargic to assess swallowing. NGT. To follow when more alert.
--- NOTE | 2019-07-07 11:49 | PN ---
Progress Note (short form) - Note Progress Note: Hospitalist Medicine Extubated yesterday (07/06). Lethargic today, would not open eyes to verbal or tactile stimuli. Case d/w son, Andrés over phone. States at baseline pt is mostly non-verbal, but is able to respond to short questions. Vitals 07/07/19 10:00 Temperature 97.9 F Pulse Rate 58 L Respiratory 19 Rate Blood Pressure 97/46 L Physical Exam general: extubated. resting in bed heent: NCAT, PERRLA neck: supple cardio: S1, S2 RRR. no r/m/g pulm: +scattered wheezes. no accessory m usage abdomen: soft, nontender, nondistended LE: 2+ pulses, 1+ edema +moreira +intubated (07/03); extubated (07/06) +R IJ line (07/03) removed neuro: +lethargic, w/dementia. would not partake in neuro exam Laboratory Tests 07/07/19 07/07/19 05:15 05:15 WBC 5.7 Hgb 7.8 L Hct 23.2 L Plt Count 147 Sodium 147 H Potassium 3.7 Chloride 116 H Carbon Dioxide 24 Anion Gap 7 L BUN 22.0 H Creatinine 0.9 Calcium 7.4 L Phosphorus 3.5 Magnesium 1.6 L Total Bilirubin 0.4 AST 79 H ALT 64 H Alkaline Phosphatase 181 H Total Protein 4.8 L Albumin 1.7 L Microbiology 07/03/19 17:20 Urine - Urine Moreira Legionella Antigen - Final 07/03/19 17:20 Sputum - Endotrachea Suction/Ventilator Gram Stain - Final 07/03/19 02:14 Urine - Urine Moreira Urine Culture - Final Enterococcus Faecalis 07/03/19 01:04 Blood - Peripheral Venous Blood Culture - Final Staphylococcus Epidermidis 07/04/19 05:50 Blood - Peripheral Venous Blood Culture - Preliminary NO GROWTH OBTAINED AFTER 72 HOURS, INCUBATION TO CONTINUE FOR 2 DAYS. 07/04/19 05:25 Blood - Peripheral Venous Blood Culture - Preliminary NO GROWTH OBTAINED AFTER 72 HOURS, INCUBATION TO CONTINUE FOR 2 DAYS. 07/03/19 17:20 Urine - Urine Moreira Streptococcus pneumoniae Antigen (M - Preliminary 07/03/19 17:20 Sputum - Endotrachea Suction/Ventilator Sputum Culture - Preliminary Enterobacter Aerogenes Klebsiella Pneumoniae 07/03/19 01:22 Blood - Peripheral Venous Blood Culture - Preliminary NO GROWTH OBTAINED AFTER 96 HOURS, INCUBATION TO CONTINUE FOR 1 DAYS. Imaging 07/03/19: CXR: new atelectasis, infiltrate at L base. ETT well above christine. sclerotic knob. degenerative changes. 07/03/19 AXR: degenerative changes, OGT with tip in LUQ, ETT present with tip well above christine 07/03/19 CXR: pulm and pleural changes at L base, paucity of bowel gas 07/03/19: CXR: ETT tip below clavicular head level. NGT with tip in stomach. new R IJ ; tip in SVC. no pneumo. retrocardiac area is dense. sclerotic knob. large heart. 07/04/19: ETT, NGT, R jugular line, dense L base, sclerotic knob 07/05/19: CXR: ETT, R IJ line, NGT persist. sclerotic knob, large heart, dense L base, congestive changeshave increased slightly 07/06/19: CXR: in Am, bibasilar pulm pleural changes with ETT, NGT, R jugular line persist. cardiomegaly, sclerotic knob, dense L base 07/03/19: EKG: sinus tach, rate 112bpm, qtc 505ms. ST changes lateral leads 07/03/19: EKG: NSR, rate 94bpm, qtc 487ms 07/04/19: EKG: NSR 61bpm, qtc 446ms. 07/05/19: ECHO: LV normal, LVSF normal, EF 55-60%, mild MR, mod TR, mod valvular no pericardial effusion, +pleural effusion 07/06/19: CXR: bibasilar pulm pleural changes with ETT, NGT, R jug line, cardiomegaly, dense L base. no significant change Assessment/Plan 89 y/o F h/o TIA, chronic anemia, dementia, HTN, NIDDM, HLD, who presented with septic shock due to acute hypoxemic respiratory failure 2/2 LLL CAP and urosepsis. #Acute hypoxemic RF 2/2 LLL CAP -c/w vanc x1, zosyn, zithro (06/03). ?may need to change to rocephin based on c+s -extubated (07/06) -initial blood cx: +staph coag (-) (?) contaminant. -sputum: entero, klebsiella (+) -legionella (-), repeat blood cx (-) -IV tylenol PRN for fever -Pulm: Dr. Fitzpatrick -ID: Dr. Harrell #Septic shock 2/2 urosepsis, LLL CAP -off pressors, R IJ line removed -most recent lactic 1.3 -maintain MAP > 65 -ucx: (+)e.faecalis >100,000 cfu -c/w zosyn zithro (06/03); may be able to de-escalate to ?rocephin -c/w moreira -ID: Dr. Harrell #Acute toxic metabolic encephalopathy -possible as pt more prone as w/ dementia, +ICU delirium -f/u stat ABG to r/o c02 retention -neuro consult: Dr. Paris #Hypernatremia -free h20 deficit: 1.5L -c/w free water via feeds -can start on d5w, since extubated -f/u repeat Na #JELANI 2/2 hypoperfusion -resolved -c/t monitor #Tropinemia likely 2/2 demand -trops trending down. do not need to cont following -ECHO noted above -Cardio: Dr. Bermudez #T2DM -c/w ISS, BGM ACHS -BG control < 180 -hold metformin #HTN -restart toprol, quinapril when BP tolerates #HLD -restart statin #hx TIA -c/w asa, statin #F/E/N off IVF continue to follow lytes TF glucerna #PPX DVT: on hep 5k sq tid GI: protonix #Dispo cont'd ICU monitoring; however for transfer to floor
--- NOTE | 2019-07-07 11:50 | PN ---
Progress Note, Physician History of Present Illness: Pt seen and examined at bedside. She is now extubated. She is lethargic. - Current Medication List Current Medications: Active Medications Acetaminophen (Ofirmev Injection -) 1,000 mg IVPB Q6H PRN PRN Reason: FEVER Last Admin: 07/06/19 03:05 Dose: 1,000 mg Albuterol/Ipratropium (Duoneb -) 1 amp NEB Q4H PRN PRN Reason: SHORTNESS OF BREATH Aspirin (Asa -) 81 mg PO DAILY [facility] Last Admin: 07/07/19 09:15 Dose: Not Given Atorvastatin Calcium (Lipitor -) 10 mg PO HS [facility] Last Admin: 07/06/19 21:53 Dose: Not Given Chlorhexidine Gluconate (Hibiclens For Decolonization -) 1 applic TP HS [facility] Last Admin: 07/06/19 21:53 Dose: 1 applic Heparin Sodium (Porcine) (Heparin -) 5,000 unit SQ TID [facility] Last Admin: 07/07/19 06:06 Dose: 5,000 unit Azithromycin (Zithromax 500mg Ivpb (Pre-Docked)) 500 mg in 250 mls @ 250 mls/ hr IVPB DAILY [facility] Last Admin: 07/07/19 09:14 Dose: 250 mls/hr Piperacillin Sod/Tazobactam (Sod 2.25 gm/ Dextrose) 50 mls @ 100 mls/hr IVPB Q8H-IV [facility]INO; Protocol Last Admin: 07/07/19 10:04 Dose: 100 mls/hr Insulin Aspart (Novolog Vial Sliding Scale -) 1 vial SQ Q6H [facility]; Protocol Last Admin: 07/07/19 11:36 Dose: Not Given Mupirocin (Bactroban Ointment (For Decolonization) -) 1 applic NS BID [facility] Stop: 07/08/19 09:59 Last Admin: 07/07/19 09:15 Dose: 1 applic Pantoprazole Sodium (Protonix Iv) 40 mg IVPUSH DAILY [facility] Last Admin: 07/07/19 09:15 Dose: 40 mg - Objective Vital Signs: Vital Signs Temperature 97.9 F 07/07/19 10:00 Pulse Rate 58 L 07/07/19 10:00 Respiratory Rate 19 07/07/19 10:00 Blood Pressure 97/46 L 01/08/20 10:00 O2 Sat by Pulse Oximetry (%) 96 07/07/19 09:00 Constitutional: Yes: Calm Eyes: Yes: Conjunctiva Clear HENT: Yes: Atraumatic Neck: Yes: Supple Cardiovascular: Yes: S1, S2 Respiratory: Yes: CTA Bilaterally Gastrointestinal: Yes: Normal Bowel Sounds, Soft Genitourinary: Yes: Incontinence Musculoskeletal: Yes: Muscle Weakness Neurological: Yes: Lethargy Labs: CBC, BMP 07/07/19 05:15 07/07/19 05:15 INR, PTT INR 1.65 (0.83-1.09) H 07/03/19 01:04 Assessment/Plan Current Medications Generic Name Dose Route Start Last Admin Trade Name Freq PRN Reason Stop Dose Admin Acetaminophen 1,000 mg 07/05/19 11:04 07/06/19 03:05 Ofirmev Injection - IVPB 1,000 mg Q6H PRN Administration FEVER Albuterol/Ipratropium 1 amp 07/07/19 08:58 Duoneb - NEB Q4H PRN SHORTNESS OF BREATH Aspirin 81 mg 07/05/19 11:45 07/07/19 09:15 Asa - PO Not Given DAILY [facility] Atorvastatin Calcium 10 mg 07/05/19 22:00 07/06/19 21:53 Lipitor - PO Not Given HS [facility] Chlorhexidine Gluconate 1 applic 07/03/19 22:00 07/06/19 21:53 Hibiclens For Decolonization - TP 1 applic HS [facility]INO Administration Heparin Sodium (Porcine) 5,000 unit 07/03/19 06:00 07/07/19 06:06 Heparin - SQ 5,000 unit TID SILVINO Administration Azithromycin 500 mg in 250 mls @ 250 mls/hr 07/04/19 10:00 07/07/19 09:14 Zithromax 500mg Ivpb (Pre-Docked) IVPB 250 mls/hr DAILY [facility] Administration Piperacillin Sod/Tazobactam 50 mls @ 100 mls/hr 07/03/19 18:00 07/07/19 10:04 Sod 2.25 gm/ Dextrose IVPB 100 mls/hr Q8H-IV S[facility]INO Administration Protocol Insulin Aspart 1 vial 07/04/19 00:30 07/07/19 11:36 Novolog Vial Sliding Scale - SQ Not Given Q6H SIL[facility]INO Protocol Mupirocin 1 applic 07/03/19 10:00 07/07/19 09:15 Bactroban Ointment (For Decolonization) - NS 07/08/19 09:59 1 applic BID SIL[facility]INO Administration Pantoprazole Sodium 40 mg 07/05/19 11:45 07/07/19 09:15 Protonix Iv IVPUSH 40 mg DAILY [facility] Administration 1. JELANI 2. Metabolic acidosis 3. Hypernatremia 4. Sepsis 5. Respiratory failure 6. Anemia 7. PNA 8. hypokalemia Plan - start d5w - monitor sodium - monitor renal function - avoid nephrotoxins - monitor pulse ox
--- NOTE | 2019-07-07 11:57 | PN ---
Teaching Attending Note Name of Resident: Orin Alonzo ATTENDING PHYSICIAN STATEMENT I saw and evaluated the patient. I reviewed the resident's note and discussed the case with the resident. I agree with the resident's findings and plan as documented. SUBJECTIVE: Pt seen and examined in the ICU. Remains extubated, poorly responsive. No fevers recorded. OBJECTIVE: Vital Signs Period Temp Pulse Resp BP Sys/Tolentino Pulse Ox Last 24 Hr 97.9 F-99.6 F 58-82 17-22 97-165/46-79 96-96 Intake & Output 07/04/19 07/05/19 07/06/19 07/07/19 23:59 23:59 23:59 23:59 Intake Total 5473 1915 1490 350 Output Total 1200 1900 1100 800 Balance 4273 15 390 -450 Weight 55.157 kg 58.967 kg 58.967 kg 59.2 kg Gen: mildly tachypneic at rest Heart: RRR Lung: scattered rhonchi Abd: soft, nontender Ext: + edema CBC, BMP 07/07/19 05:15 07/07/19 05:15 Active Medications Acetaminophen (Ofirmev Injection -) 1,000 mg IVPB Q6H PRN PRN Reason: FEVER Last Admin: 07/06/19 03:05 Dose: 1,000 mg Albuterol/Ipratropium (Duoneb -) 1 amp NEB Q4H PRN PRN Reason: SHORTNESS OF BREATH Aspirin (Asa -) 81 mg PO DAILY [facility] Last Admin: 07/07/19 09:15 Dose: Not Given Atorvastatin Calcium (Lipitor -) 10 mg PO HS [facility] Last Admin: 07/06/19 21:53 Dose: Not Given Chlorhexidine Gluconate (Hibiclens For Decolonization -) 1 applic TP HS [facility] Last Admin: 07/06/19 21:53 Dose: 1 applic Heparin Sodium (Porcine) (Heparin -) 5,000 unit SQ TID [facility] Last Admin: 07/07/19 06:06 Dose: 5,000 unit Azithromycin (Zithromax 500mg Ivpb (Pre-Docked)) 500 mg in 250 mls @ 250 mls/ hr IVPB DAILY [facility] Last Admin: 07/07/19 09:14 Dose: 250 mls/hr Piperacillin Sod/Tazobactam (Sod 2.25 gm/ Dextrose) 50 mls @ 100 mls/hr IVPB Q8H-IV [facility]; Protocol Last Admin: 07/07/19 10:04 Dose: 100 mls/hr Potassium Chloride 10 meq/ (Dextrose) 1,005 mls @ 65 mls/hr IV Q15H [facility] Insulin Aspart (Novolog Vial Sliding Scale -) 1 vial SQ Q6H S[facility]INO; Protocol Last Admin: 07/07/19 11:36 Dose: Not Given Mupirocin (Bactroban Ointment (For Decolonization) -) 1 applic NS BID [facility] Stop: 07/08/19 09:59 Last Admin: 07/07/19 09:15 Dose: 1 applic Pantoprazole Sodium (Protonix Iv) 40 mg IVPUSH DAILY [facility] Last Admin: 07/07/19 09:15 Dose: 40 mg ASSESSMENT AND PLAN: Acute Hypoxic Respiratory Failure improving Pneumonia UTI Bacteremia Septic Shock resolving Acute Kidney Injury improving Lactic Acidosis +Troponins likely Demand Ischemia Aortic Stenosis Pulmonary HTN DM Hypothyroidism Hypercholesterolemia h/o CVA Dementia Anemia - pt extubated - continue antibiotics - f/u cultures - monitor urine output, creatinine - off pressors, maintain MAP >65 - increase free water - aspiration precautions - DVT/GI prophylaxis - can monitor on floor
[2019-07-07] MEDS ORDERED: DEXTROSE 5%-WATER - 1,000 ML with POTASSIUM CHLORIDE 10 MEQ IVPB SCH (12:00)
--- NOTE | 2019-07-07 12:06 | PN ---
Progress Note, Physician History of Present Illness: Extubated off pressors and sedation, lethargic afebrile. - Current Medication List Current Medications: Active Medications Acetaminophen (Ofirmev Injection -) 1,000 mg IVPB Q6H PRN PRN Reason: FEVER Last Admin: 07/06/19 03:05 Dose: 1,000 mg Albuterol/Ipratropium (Duoneb -) 1 amp NEB Q4H PRN PRN Reason: SHORTNESS OF BREATH Aspirin (Asa -) 81 mg PO DAILY [facility] [place] Last Admin: 07/07/19 09:15 Dose: Not Given Atorvastatin Calcium (Lipitor -) 10 mg PO HS [facility] [place] Last Admin: 07/06/19 21:53 Dose: Not Given Chlorhexidine Gluconate (Hibiclens For Decolonization -) 1 applic TP HS [facility] [place] Last Admin: 07/06/19 21:53 Dose: 1 applic Heparin Sodium (Porcine) (Heparin -) 5,000 unit SQ TID [facility] [place] Last Admin: 07/07/19 06:06 Dose: 5,000 unit Azithromycin (Zithromax 500mg Ivpb (Pre-Docked)) 500 mg in 250 mls @ 250 mls/ hr IVPB DAILY [facility] [place] Last Admin: 07/07/19 09:14 Dose: 250 mls/hr Piperacillin Sod/Tazobactam (Sod 2.25 gm/ Dextrose) 50 mls @ 100 mls/hr IVPB Q8H-IV [facility]; Protocol Last Admin: 07/07/19 10:04 Dose: 100 mls/hr Potassium Chloride 10 meq/ (Dextrose) 1,005 mls @ 65 mls/hr IV Q15H [facility] [place] Insulin Aspart (Novolog Vial Sliding Scale -) 1 vial SQ Q6H [facility] [place]; Protocol Last Admin: 07/07/19 11:36 Dose: Not Given Mupirocin (Bactroban Ointment (For Decolonization) -) 1 applic NS BID [facility] [place] Stop: 07/08/19 09:59 Last Admin: 07/07/19 09:15 Dose: 1 applic Pantoprazole Sodium (Protonix Iv) 40 mg IVPUSH DAILY [facility] [place] Last Admin: 07/07/19 09:15 Dose: 40 mg - Objective Vital Signs: Vital Signs Temperature 97.9 F 07/07/19 10:00 Pulse Rate 58 L 07/07/19 10:00 Respiratory Rate 19 07/07/19 10:00 Blood Pressure 97/46 L 07/07/19 10:00 O2 Sat by Pulse Oximetry (%) 96 07/07/19 09:00 Constitutional: Yes: No Distress, Calm Neck: Yes: Supple Cardiovascular: Yes: Regular Rate and Rhythm Respiratory: Yes: Regular, Diminished, On Nasal O2 Gastrointestinal: Yes: Soft, Hypoactive Bowel Sounds Edema: No Labs: CBC, BMP 07/07/19 05:15 07/07/19 05:15 INR, PTT INR 1.65 (0.83-1.09) H 07/03/19 01:04 - ....Imaging Chest X-ray: Image Reviewed EKG: Report Reviewed (Tele: NSR) Problem List - Problems (1) Septic shock Code(s): A41.9 - SEPSIS, UNSPECIFIED ORGANISM; R65.21 - SEVERE SEPSIS WITH SEPTIC SHOCK (2) Acute hypoxemic respiratory failure Code(s): J96.01 - ACUTE RESPIRATORY FAILURE WITH HYPOXIA (3) Demand ischemia Code(s): I24.8 - OTHER FORMS OF ACUTE ISCHEMIC HEART DISEASE (4) Hypercholesterolemia Code(s): E78.00 - PURE HYPERCHOLESTEROLEMIA, UNSPECIFIED (5) UTI (urinary tract infection) Code(s): N39.0 - URINARY TRACT INFECTION, SITE NOT SPECIFIED Qualifiers: Urinary tract infection type: site unspecified (6) JELANI (acute kidney injury) Code(s): N17.9 - ACUTE KIDNEY FAILURE, UNSPECIFIED Assessment/Plan 1. Acute hypoxemic respiratory failure improving 2. Post septic shock LLL pneumonia, urosepsis, bacteremia 3. Hypercholesterolemia 4. Hypothyoidism 5. NIDDM 6. Cerebrovascular disease, h/o TIA 7. Organic brain/dementia 8. Anemia 9. Demand ischemia 10. JELANI due to septic shock improving 11. Moderate 12. Moderate TR 13. Pleural effusion PLAN: 1. BD, O2 as needed 2. Complete antibiotic coverage per C&S 3. DVT prophylaxis 4. Troponin downtrending 5. Echocardiography reviewed. Moderate , pleural effusion, moderate TR 6. Restart Metoprolol and Quinapril as BP tolerates once taking oral intake
--- NOTE | 2019-07-07 12:12 | PN ---
Progress Note, Physician History of Present Illness: EXTUBATED OFF SEDATION AND PRESSORS MINIMALLY RESPONSIVE AFEBRILE + BC SCN X 1 C/W CONTAMINATION RENAL FUNCTION IMPROVED - Current Medication List Current Medications: Active Medications Acetaminophen (Ofirmev Injection -) 1,000 mg IVPB Q6H PRN PRN Reason: FEVER Last Admin: 07/06/19 03:05 Dose: 1,000 mg Albuterol/Ipratropium (Duoneb -) 1 amp NEB Q4H PRN PRN Reason: SHORTNESS OF BREATH Aspirin (Asa -) 81 mg PO DAILY [facility] Last Admin: 07/07/19 09:15 Dose: Not Given Atorvastatin Calcium (Lipitor -) 10 mg PO HS [facility] Last Admin: 07/06/19 21:53 Dose: Not Given Chlorhexidine Gluconate (Hibiclens For Decolonization -) 1 applic TP HS [facility] Last Admin: 07/06/19 21:53 Dose: 1 applic Heparin Sodium (Porcine) (Heparin -) 5,000 unit SQ TID [facility] Last Admin: 07/07/19 06:06 Dose: 5,000 unit Azithromycin (Zithromax 500mg Ivpb (Pre-Docked)) 500 mg in 250 mls @ 250 mls/ hr IVPB DAILY [facility] Last Admin: 07/07/19 09:14 Dose: 250 mls/hr Piperacillin Sod/Tazobactam (Sod 2.25 gm/ Dextrose) 50 mls @ 100 mls/hr IVPB Q8H-IV [facility]; Protocol Last Admin: 07/07/19 10:04 Dose: 100 mls/hr Potassium Chloride 10 meq/ (Dextrose) 1,005 mls @ 65 mls/hr IV Q15H [facility] Insulin Aspart (Novolog Vial Sliding Scale -) 1 vial SQ Q6H [facility]; Protocol Last Admin: 07/07/19 11:36 Dose: Not Given Mupirocin (Bactroban Ointment (For Decolonization) -) 1 applic NS BID [facility] Stop: 07/08/19 09:59 Last Admin: 07/07/19 09:15 Dose: 1 applic Pantoprazole Sodium (Protonix Iv) 40 mg IVPUSH DAILY [facility] Last Admin: 07/07/19 09:15 Dose: 40 mg - Objective Vital Signs: Vital Signs Temperature 97.9 F 07/07/19 10:00 Pulse Rate 58 L 07/07/19 10:00 Respiratory Rate 19 07/07/19 10:00 Blood Pressure 97/46 L 07/07/19 10:00 O2 Sat by Pulse Oximetry (%) 96 07/07/19 09:00 Constitutional: Yes: No Distress Eyes: Yes: Conjunctiva Clear Cardiovascular: Yes: Regular Rate and Rhythm, S1, S2 Respiratory: Yes: Diminished Gastrointestinal: Yes: Normal Bowel Sounds, Soft. No: Tenderness Edema: Yes Labs: CBC, BMP 07/07/19 05:15 07/07/19 05:15 INR, PTT INR 1.65 (0.83-1.09) H 07/03/19 01:04 Assessment/Plan ACUTE RESPIRATORY FAILURE S/P EXTUBATION LLL PNEUMONIA SEPSIS/SEPTIC SHOCK +BC SCN C/W CONTAMINATION UTI LACTIC ACIDOSIS RESOLVED RENAL FAILURE RESOLVED ANEMIA THROMBOCYTOPENIA RESOLVED HYPERNATREMIA CONTINUE ZOSYN/ ZITHROMAX REPEAT BC PENDING
[2019-07-07] MEDS: DEXTROSE 5%-WATER - 1,000 ML with POTASSIUM CHLORIDE 10 MEQ IV SCH (12:49)
[2019-07-07 14:05] LABS: ARTERIAL BLD GAS O2 SATURATION 97.2 % (95-98); ARTERIAL BLOOD GAS BASE EXCESS -0.4 meq/l (-2-2); ARTERIAL BLOOD GAS PCO2 32.7 mmHg (35-45); ARTERIAL BLOOD GAS pH 7.46 (7.35-7.45)
[2019-07-07 14:06] LABS: ALLENS TEST POSITIVE; ARTERIAL BLOOD GAS PO2 142 mmHg (80-100)
--- NOTE | 2019-07-07 16:45 | PN ---
Physical Exam: SUBJECTIVE: Patient seen and examined. Replacing NGT for tube feeds. Central line removed. OBJECTIVE: Vital Signs Period Temp Pulse Resp BP Sys/Tolentino Pulse Ox Last 24 Hr 97.8 F-99.6 F 58-82 17-22 97-165/46-86 96-96 GENERAL: awake, opens eyes to name call. HEENT: NCAT PERRLA conjunctiva clear. LUNGS: b/l rhonchi HEART: RRR S1S2 heard no mrg ABDOMEN: Soft NTND. + BS. EXTREMITIES: 2+ pulses, warm, well-perfused, mild UE nonpitting edema Laboratory Results - last 24 hr 07/03/19 07/06/19 07/06/19 04:54 16:00 17:33 WBC RBC Hgb Hct MCV MCH MCHC RDW Plt Count MPV Anticoagulation Therapy Puncture Site ABG pH ABG pCO2 at Pt Temp ABG pO2 at Pt Temp ABG HCO3 ABG O2 Sat (Measured) ABG O2 Content ABG Base Excess Teto Test O2 Delivery Device Oxygen Flow Rate Vent Mode Vent Rate Mechanical Rate Pressure Support Vent Sodium 147 H Potassium 3.3 L Chloride 116 H Carbon Dioxide 25 Anion Gap 6 L BUN 29.4 H Creatinine 1.0 Est GFR (CKD-EPI)AfAm 57.84 Est GFR (CKD-EPI)NonAf 49.91 POC Glucometer 102 Random Glucose 132 H Calcium 7.6 L Phosphorus Magnesium Total Bilirubin AST ALT Alkaline Phosphatase Total Protein Albumin Blood Type A POSITIVE Antibody Screen Negative Crossmatch See Detail 07/07/19 07/07/19 07/07/19 00:09 05:15 05:15 WBC 5.7 RBC 2.61 L Hgb 7.8 L Hct 23.2 L MCV 88.8 MCH 29.9 MCHC 33.7 RDW 14.3 Plt Count 147 MPV 8.6 Anticoagulation Therapy Puncture Site ABG pH ABG pCO2 at Pt Temp ABG pO2 at Pt Temp ABG HCO3 ABG O2 Sat (Measured) ABG O2 Content ABG Base Excess Teto Test O2 Delivery Device Oxygen Flow Rate Vent Mode Vent Rate Mechanical Rate Pressure Support Vent Sodium 147 H Potassium 3.7 Chloride 116 H Carbon Dioxide 24 Anion Gap 7 L BUN 22.0 H Creatinine 0.9 Est GFR (CKD-EPI)AfAm 65.70 Est GFR (CKD-EPI)NonAf 56.69 POC Glucometer 107 Random Glucose 103 Calcium 7.4 L Phosphorus 3.5 Magnesium 1.6 L Total Bilirubin 0.4 AST 79 H ALT 64 H Alkaline Phosphatase 181 H Total Protein 4.8 L Albumin 1.7 L Blood Type Antibody Screen Crossmatch 07/07/19 07/07/19 07/07/19 06:12 11:34 13:48 WBC RBC Hgb Hct MCV MCH MCHC RDW Plt Count MPV Anticoagulation Therapy No Result Required. Puncture Site Right radial ABG pH 7.46 H ABG pCO2 at Pt Temp 32.7 L ABG pO2 at Pt Temp 142 H ABG HCO3 22.7 ABG O2 Sat (Measured) 97.2 ABG O2 Content No Result Required. ABG Base Excess -0.4 Teto Test Positive O2 Delivery Device N/c Oxygen Flow Rate 4l Vent Mode No Result Required. Vent Rate No Result Required. Mechanical Rate No Result Required. Pressure Support Vent No Result Required. Sodium Potassium Chloride Carbon Dioxide Anion Gap BUN Creatinine Est GFR (CKD-EPI)AfAm Est GFR (CKD-EPI)NonAf POC Glucometer 89 140 Random Glucose Calcium Phosphorus Magnesium Total Bilirubin AST ALT Alkaline Phosphatase Total Protein Albumin Blood Type Antibody Screen Crossmatch Active Medications Generic Name Dose Route Start Last Admin Trade Name Freq PRN Reason Stop Dose Admin Acetaminophen 1,000 mg 07/05/19 11:04 07/06/19 03:05 Ofirmev Injection - IVPB 1,000 mg Q6H PRN Administration FEVER Albuterol/Ipratropium 1 amp 07/07/19 08:58 Duoneb - NEB Q4H PRN SHORTNESS OF BREATH Aspirin 81 mg 07/05/19 11:45 07/07/19 09:15 Asa - PO Not Given DAILY SILVINO Atorvastatin Calcium 10 mg 07/05/19 22:00 07/06/19 21:53 Lipitor - PO Not Given HS SILVINO Chlorhexidine Gluconate 1 applic 07/03/19 22:00 07/06/19 21:53 Hibiclens For Decolonization - TP 1 applic HS SILVINO Administration Heparin Sodium (Porcine) 5,000 unit 07/03/19 06:00 07/07/19 12:59 Heparin - SQ 5,000 unit TID SILVINO Administration Azithromycin 500 mg in 250 mls @ 250 mls/hr 07/04/19 10:00 07/07/19 09:14 Zithromax 500mg Ivpb (Pre-Docked) IVPB 250 mls/hr DAILY SILVINO Administration Piperacillin Sod/Tazobactam 50 mls @ 100 mls/hr 07/03/19 18:00 07/07/19 10:04 Sod 2.25 gm/ Dextrose IVPB 100 mls/hr Q8H-IV SILVINO Administration Protocol Potassium Chloride 10 meq/ 1,005 mls @ 65 mls/hr 07/07/19 12:00 07/07/19 12:49 Dextrose IV 65 mls/hr Q15H SILVINO Administration Insulin Aspart 1 vial 07/04/19 00:30 07/07/19 11:36 Novolog Vial Sliding Scale - SQ Not Given Q6H SILVINO Protocol Mupirocin 1 applic 07/03/19 10:00 07/07/19 09:15 Bactroban Ointment (For Decolonization) - NS 07/08/19 09:59 1 applic BID SILVINO Administration Pantoprazole Sodium 40 mg 07/05/19 11:45 07/07/19 09:15 Protonix Iv IVPUSH 40 mg DAILY SILVINO Administration ASSESSMENT/PLAN: 89 y.o. F PMH TIA, anemia, dementia, HTN, NIDDM, HLD presented for respiratory failure w/ sepsis 2/2 bacteremia & UTI. #STATE TROOPER -hx dementia. nonverbal @ baseline #CV -off pressors, off sedation -Restart metoprolol and quinapril as BP tolerates, resume atorvastatin once clinically stable -Echo: moderate , pleural effusion, moderate TR -Cardio following (Dr. Linton, Dr. Bermudez) #Pulm -extubated 07/06 -CXR today: L pl effusion, L cardiac compressive atelectasis, L perihilar airspace opacity -c/w zosyn, zithromax -Aspiration precautions #Heme -hx of anemia -Hgb 7.8, stable; s/p 1U pRBC total -trend H&H transfuse prn #Renal -JELANI resolved -C/w free water via NGT 300mL q8h -maintain moreira -Nephro following #ID -gm + cocci bacteremia s. epidermidis; repeat blood cx's negative -+ enterococcal UTI -Sputum cx + enterobacter, klebsiella -C/w Azithromycin + zosyn -ID following #Endo -ISS -BGMs ACHS -holding oral agents # -UA + on admission, Urine culture 07/03/19 + Enterococcus -continuing abx #PPX -DVT- heparin SQ -GI, protonix 40mg IV daily #FEN -no standing fluids; free water 300 cc Q8H -trend bmp replete prn -restarting tube feeds; eval'd by speech & swallow #Dispo for transfer to med surg Visit type - Emergency Visit Emergency Visit: No - New Patient This patient is new to me today: No - Critical Care Critical Care patient: Yes Total Critical Care Time (in minutes): 36 Critical Care Statement: The care of this patient involved high complexity decision making to prevent further life threatening deterioration of the patient's condition and/or to evaluate & treat vital organ system(s) failure or risk of failure. ATTENDING PHYSICIAN STATEMENT I saw and evaluated the patient. I reviewed the resident's note and discussed the case with the resident. I agree with the resident's findings and plan as documented. SUBJECTIVE: OBJECTIVE: ASSESSMENT AND PLAN:
--- NOTE | 2019-07-07 17:32 | PN ---
Teaching Attending Note Name of Resident: Rupinder Honeycutt ATTENDING PHYSICIAN STATEMENT I saw and evaluated the patient. I reviewed the resident's note and discussed the case with the resident. I agree with the resident's findings and plan as documented. SUBJECTIVE: Patient is lethargic. She appears comfortable. OBJECTIVE: Vital Signs Period Temp Pulse Resp BP Sys/Tolentino Pulse Ox Last 24 Hr 97.8 F-99.6 F 58-82 17-22 97-165/46-86 96-96 HEART: S1S2, RRR LUNGS: Clear ABDOMEN: Soft, non-tender, non-distended, normal BS EXTREMITIES: Trace edema Laboratory Results - last 24 hr 07/03/19 07/06/19 07/07/19 04:54 17:33 00:09 WBC RBC Hgb Hct MCV MCH MCHC RDW Plt Count MPV Anticoagulation Therapy Puncture Site ABG pH ABG pCO2 at Pt Temp ABG pO2 at Pt Temp ABG HCO3 ABG O2 Sat (Measured) ABG O2 Content ABG Base Excess Teto Test O2 Delivery Device Oxygen Flow Rate Vent Mode Vent Rate Mechanical Rate Pressure Support Vent Sodium Potassium Chloride Carbon Dioxide Anion Gap BUN Creatinine Est GFR (CKD-EPI)AfAm Est GFR (CKD-EPI)NonAf POC Glucometer 102 107 Random Glucose Calcium Phosphorus Magnesium Total Bilirubin AST ALT Alkaline Phosphatase Total Protein Albumin Blood Type A POSITIVE Antibody Screen Negative Crossmatch See Detail 07/07/19 07/07/19 07/07/19 05:15 05:15 06:12 WBC 5.7 RBC 2.61 L Hgb 7.8 L Hct 23.2 L MCV 88.8 MCH 29.9 MCHC 33.7 RDW 14.3 Plt Count 147 MPV 8.6 Anticoagulation Therapy Puncture Site ABG pH ABG pCO2 at Pt Temp ABG pO2 at Pt Temp ABG HCO3 ABG O2 Sat (Measured) ABG O2 Content ABG Base Excess Teto Test O2 Delivery Device Oxygen Flow Rate Vent Mode Vent Rate Mechanical Rate Pressure Support Vent Sodium 147 H Potassium 3.7 Chloride 116 H Carbon Dioxide 24 Anion Gap 7 L BUN 22.0 H Creatinine 0.9 Est GFR (CKD-EPI)AfAm 65.70 Est GFR (CKD-EPI)NonAf 56.69 POC Glucometer 89 Random Glucose 103 Calcium 7.4 L Phosphorus 3.5 Magnesium 1.6 L Total Bilirubin 0.4 AST 79 H ALT 64 H Alkaline Phosphatase 181 H Total Protein 4.8 L Albumin 1.7 L Blood Type Antibody Screen Crossmatch 07/07/19 07/07/19 11:34 13:48 WBC RBC Hgb Hct MCV MCH MCHC RDW Plt Count MPV Anticoagulation Therapy No Result Required. Puncture Site Right radial ABG pH 7.46 H ABG pCO2 at Pt Temp 32.7 L ABG pO2 at Pt Temp 142 H ABG HCO3 22.7 ABG O2 Sat (Measured) 97.2 ABG O2 Content No Result Required. ABG Base Excess -0.4 Teto Test Positive O2 Delivery Device N/c Oxygen Flow Rate 4l Vent Mode No Result Required. Vent Rate No Result Required. Mechanical Rate No Result Required. Pressure Support Vent No Result Required. Sodium Potassium Chloride Carbon Dioxide Anion Gap BUN Creatinine Est GFR (CKD-EPI)AfAm Est GFR (CKD-EPI)NonAf POC Glucometer 140 Random Glucose Calcium Phosphorus Magnesium Total Bilirubin AST ALT Alkaline Phosphatase Total Protein Albumin Blood Type Antibody Screen Crossmatch Current Medications Generic Name Dose Route Start Last Admin Trade Name Freq PRN Reason Stop Dose Admin Acetaminophen 1,000 mg 07/05/19 11:04 07/06/19 03:05 Ofirmev Injection - IVPB 1,000 mg Q6H PRN Administration FEVER Albuterol/Ipratropium 1 amp 07/07/19 08:58 Duoneb - NEB Q4H PRN SHORTNESS OF BREATH Aspirin 81 mg 07/05/19 11:45 07/07/19 09:15 Asa - PO Not Given DAILY SILVINO Atorvastatin Calcium 10 mg 07/05/19 22:00 07/06/19 21:53 Lipitor - PO Not Given HS SILVINO Chlorhexidine Gluconate 1 applic 07/03/19 22:00 07/06/19 21:53 Hibiclens For Decolonization - TP 1 applic HS SILVINO Administration Heparin Sodium (Porcine) 5,000 unit 07/03/19 06:00 07/07/19 12:59 Heparin - SQ 5,000 unit TID SILVINO Administration Azithromycin 500 mg in 250 mls @ 250 mls/hr 07/04/19 10:00 07/07/19 09:14 Zithromax 500mg Ivpb (Pre-Docked) IVPB 250 mls/hr DAILY SILVINO Administration Piperacillin Sod/Tazobactam 50 mls @ 100 mls/hr 07/03/19 18:00 07/07/19 17:11 Sod 2.25 gm/ Dextrose IVPB 100 mls/hr Q8H-IV SILVINO Administration Protocol Potassium Chloride 10 meq/ 1,005 mls @ 65 mls/hr 07/07/19 12:00 07/07/19 12: 49 Dextrose IV 65 mls/hr Q15H SILVINO Administration Insulin Aspart 1 vial 07/04/19 00:30 07/07/19 11:36 Novolog Vial Sliding Scale - SQ Not Given Q6H SILVINO Protocol Mupirocin 1 applic 07/03/19 10:00 07/07/19 09:15 Bactroban Ointment (For Decolonization) - NS 07/08/19 09:59 1 applic BID SILVINO Administration Pantoprazole Sodium 40 mg 07/05/19 11:45 07/07/19 09:15 Protonix Iv IVPUSH 40 mg DAILY SILVINO Administration ASSESSMENT AND PLAN: This is an 89 year old woman with a history of HTN, hyperlipidemia, type 2 DM, anemia, TIA, dementia who presented to the ED with respiratory distress. 1. Acute hypoxic respiratory failure secondary to pneumonia - Extubated 07/06 2. Septic shock secondary to pneumonia, E. faecalis UTI - Shock resolved - Continue Zosyn, azithromycin 3. Acute kidney injury secondary to hypoperfusion - Resolved 4. Demand ischemia 5. Hypernatremia - Improving with IV D5W 6. Hypokalemia - Improved 7. Hypophosphatemia - Resolved 8. Type 2 DM - Metformin held - Continue Novolog sliding scale 9. HTN - Accupril, Toprol XL held secondary to septic shock 10. Hyperlipidemia - Continue Lipitor 11. Anemia - Transfused 1 unit PRBCs 07/04 - Hgb stable 12. History of TIA - Continue aspirin, Lipitor 13. DVT prophylaxis - Heparin subq 14. Stress ulcer prophylaxis - Protonix IV
[2019-07-07] MEDS ORDERED: ACETAMINOPHEN 1000 MG/100 ML VIAL (NON FORMULARY) IVPB PRN (20:09)
[2019-07-07] MEDS: ATORVASTATIN CA 10 MG TABLET (FP) PO SCH (21:43)
[2019-07-07] MEDS ORDERED: INSULIN (NOVOLOG) ASPART 100 UNITS/ML 10ML VIAL ONE (23:21)
[2019-07-08] MEDS ORDERED: PIPERACILLIN/TAZOBACTAM 2.25 GM VIAL IVPB ONE ×3 (01:35→17:55)
[2019-07-08] MEDS ORDERED: DEXTROSE 5%-WATER - 50 ML IVPB ONE ×3 (01:35→17:55)
[2019-07-08] MEDS: PIPERACILLIN/TAZOB 2.25 GM 2.25 GM in DEXTROSE 5%-WATER - 50 ML IVPB SCH ×3 (01:58→18:04)
[2019-07-08] MEDS: DEXTROSE 5%-WATER - 1,000 ML with POTASSIUM CHLORIDE 10 MEQ IV SCH ×2 (06:06)
[2019-07-08] MEDS: HEPARIN NA (PORCINE) 5,000 UNITS/ML 1ML VIAL SQ SCH ×3 (06:08→21:20)
[2019-07-08] MEDS: INSULIN SLIDING SCALE (NOVOLOG) 1 VIAL SQ SCH ×3 (06:08→18:42)
--- NOTE | 2019-07-08 08:35 | PN ---
Progress Note (short form) - Note Progress Note: Awake, not able to answer questions. NAD. No acute events overnight. Intake & Output 07/05/19 07/06/19 07/07/19 07/08/19 23:59 23:59 23:59 23:59 Intake Total 1915 1490 1200 Output Total 1900 1100 1400 300 Balance 15 390 -200 -300 Weight 130 lb 130 lb 130 lb 8.218 oz 127 lb 7 oz Last Vital Signs Temp Pulse Resp BP Pulse Ox 98.1 F 86 20 142/74 96 07/08/19 06:39 07/08/19 06:39 07/08/19 06:39 07/08/19 06:39 07/07/19 09:00 Active Medications Acetaminophen (Ofirmev Injection -) 1,000 mg IVPB Q6H PRN PRN Reason: FEVER Last Admin: 07/08/19 06:08 Dose: 1,000 mg Albuterol/Ipratropium (Duoneb -) 1 amp NEB Q4H PRN PRN Reason: SHORTNESS OF BREATH Aspirin (Asa -) 81 mg PO DAILY SILVINO Atorvastatin Calcium (Lipitor -) 10 mg PO HS SILVINO Last Admin: 07/07/19 21:43 Dose: Not Given Heparin Sodium (Porcine) (Heparin -) 5,000 unit SQ TID SILVINO Last Admin: 07/08/19 06:08 Dose: 5,000 unit Potassium Chloride 10 meq/ (Dextrose) 1,005 mls @ 65 mls/hr IV Q15H SILVINO Last Admin: 07/08/19 06:06 Dose: 65 mls/hr Azithromycin (Zithromax 500mg Ivpb (Pre-Docked)) 500 mg in 250 mls @ 250 mls/ hr IVPB DAILY [facility] Piperacillin Sod/Tazobactam (Sod 2.25 gm/ Dextrose) 50 mls @ 100 mls/hr IVPB Q8H-IV SILVINO; Protocol Last Admin: 07/08/19 01:58 Dose: 100 mls/hr Insulin Aspart (Novolog Vial Sliding Scale -) 1 vial SQ Q6H SILVINO; Protocol Last Admin: 07/08/19 06:08 Dose: 2 units Pantoprazole Sodium (Protonix Iv) 40 mg IVPUSH DAILY [facility] Gen: NAD Heart: RRR Lung: scattered rhonchi Abd: soft, nontender Ext: + edema Laboratory Results - last 24 hr 07/07/19 07/07/19 07/07/19 11:34 13:48 17:37 Anticoagulation Therapy No Result Required. Puncture Site Right radial ABG pH 7.46 H ABG pCO2 at Pt Temp 32.7 L ABG pO2 at Pt Temp 142 H ABG HCO3 22.7 ABG O2 Sat (Measured) 97.2 ABG O2 Content No Result Required. ABG Base Excess -0.4 Teto Test Positive O2 Delivery Device N/c Oxygen Flow Rate 4l Vent Mode No Result Required. Vent Rate No Result Required. Mechanical Rate No Result Required. Pressure Support Vent No Result Required. POC Glucometer 140 160 07/07/19 07/08/19 23:17 06:04 Anticoagulation Therapy Puncture Site ABG pH ABG pCO2 at Pt Temp ABG pO2 at Pt Temp ABG HCO3 ABG O2 Sat (Measured) ABG O2 Content ABG Base Excess Teto Test O2 Delivery Device Oxygen Flow Rate Vent Mode Vent Rate Mechanical Rate Pressure Support Vent POC Glucometer 185 154 ASSESSMENT AND PLAN: Acute Hypoxic Respiratory Failure improved Pneumonia UTI Bacteremia Septic Shock resolving Acute Kidney Injury improving Lactic Acidosis +Troponins likely Demand Ischemia Aortic Stenosis Pulmonary HTN DM Hypothyroidism Hypercholesterolemia h/o CVA Dementia Anemia - ABX coverage - free water - aspiration precautions - DVT/GI prophylaxis Dr Paula
[2019-07-08 08:56] LABS: BASO % 0.3 % (0-2.0); EOS % 1.5 % (0-4.5); HEMATOCRIT 20.8 % (32.4-45.2); HEMOGLOBIN 6.9 GM/dL (10.7-15.3); LYMPH % 13.6 % (8-40); MCH 29.5 pg (25.7-33.7); MCHC 33.2 g/dl (32.0-36.0); MEAN CELL VOLUME 88.9 fl (80-96); MEAN PLT VOLUME 7.9 fl (7.5-11.1); MONO % 10.1 % (3.8-10.2); NEUT % 74.5 % (42.8-82.8); PLATELET COUNT 171 K/MM3 (134-434); RBC 2.34 M/mm3 (3.60-5.2); RDW 14.2 % (11.6-15.6)
[2019-07-08 09:08] LABS: WHITE BLOOD COUNT 4.9 K/mm3 (4.0-10.0)
[2019-07-08 09:21] LABS: BLOOD UREA NITROGEN 15.1 mg/dL (7-18); CALCIUM 7.6 mg/dL (8.5-10.1); CREATININE 0.9 mg/dL (0.55-1.3); MAGNESIUM 1.9 mg/dL (1.8-2.4); PHOSPHOROUS 2.6 mg/dL (2.5-4.9); POTASSIUM 3.2 mmol/L (3.5-5.1)
--- NOTE | 2019-07-08 10:29 | PN ---
Progress Note, Physician History of Present Illness: Lethargic afebrile, not taking oral intake yet. - Current Medication List Current Medications: Active Medications Acetaminophen (Ofirmev Injection -) 1,000 mg IVPB Q6H PRN PRN Reason: FEVER Last Admin: 07/08/19 06:08 Dose: 1,000 mg Albuterol/Ipratropium (Duoneb -) 1 amp NEB Q4H PRN PRN Reason: SHORTNESS OF BREATH Aspirin (Asa -) 81 mg PO DAILY SILVINO Atorvastatin Calcium (Lipitor -) 10 mg PO HS [facility] Last Admin: 07/07/19 21:43 Dose: Not Given Heparin Sodium (Porcine) (Heparin -) 5,000 unit SQ TID SILVINO Last Admin: 07/08/19 06:08 Dose: 5,000 unit Potassium Chloride 10 meq/ (Dextrose) 1,005 mls @ 65 mls/hr IV Q15H SILVINO Last Admin: 07/08/19 06:06 Dose: 65 mls/hr Azithromycin (Zithromax 500mg Ivpb (Pre-Docked)) 500 mg in 250 mls @ 250 mls/ hr IVPB DAILY [facility] Piperacillin Sod/Tazobactam (Sod 2.25 gm/ Dextrose) 50 mls @ 100 mls/hr IVPB Q8H-IV SILVINO; Protocol Last Admin: 07/08/19 01:58 Dose: 100 mls/hr Insulin Aspart (Novolog Vial Sliding Scale -) 1 vial SQ Q6H SILVINO; Protocol Last Admin: 07/08/19 06:08 Dose: 2 units Pantoprazole Sodium (Protonix Iv) 40 mg IVPUSH DAILY [facility] - Objective Vital Signs: Vital Signs Temperature 98.1 F 07/08/19 06:39 Pulse Rate 86 07/08/19 06:39 Respiratory Rate 20 07/08/19 06:39 Blood Pressure 142/74 07/08/19 06:39 O2 Sat by Pulse Oximetry (%) 96 07/07/19 09:00 Constitutional: Yes: No Distress, Calm, Thin Neck: Yes: Supple Cardiovascular: Yes: Regular Rate and Rhythm Respiratory: Yes: Regular, Diminished, On Nasal O2 Gastrointestinal: Yes: Soft, Hypoactive Bowel Sounds Edema: No Labs: CBC, BMP 07/08/19 08:16 07/08/19 08:16 INR, PTT INR 1.65 (0.83-1.09) H 07/03/19 01:04 - ....Imaging Chest X-ray: Report Reviewed (Improved left pleural effusion) Problem List - Problems (1) Septic shock Code(s): A41.9 - SEPSIS, UNSPECIFIED ORGANISM; R65.21 - SEVERE SEPSIS WITH SEPTIC SHOCK (2) Acute hypoxemic respiratory failure Code(s): J96.01 - ACUTE RESPIRATORY FAILURE WITH HYPOXIA (3) Demand ischemia Code(s): I24.8 - OTHER FORMS OF ACUTE ISCHEMIC HEART DISEASE (4) Hypercholesterolemia Code(s): E78.00 - PURE HYPERCHOLESTEROLEMIA, UNSPECIFIED (5) UTI (urinary tract infection) Code(s): N39.0 - URINARY TRACT INFECTION, SITE NOT SPECIFIED Qualifiers: Urinary tract infection type: site unspecified (6) JELANI (acute kidney injury) Code(s): N17.9 - ACUTE KIDNEY FAILURE, UNSPECIFIED Assessment/Plan 1. Acute hypoxemic respiratory failure improving 2. Post septic shock LLL pneumonia, urosepsis, bacteremia 3. Hypercholesterolemia 4. Hypothyoidism 5. NIDDM 6. Cerebrovascular disease, h/o TIA 7. Organic brain/dementia 8. Anemia 9. Demand ischemia 10. JELANI due to septic shock improving 11. Moderate 12. Moderate TR 13. Pleural effusion PLAN: 1. BD, O2 as needed, aspiration precautions 2. Complete antibiotic coverage per C&S 3. DVT prophylaxis 4. Troponin downtrending, monitor Hgb and transfuse as needed 5. Echocardiography reviewed. Moderate , pleural effusion, moderate TR 6. Restart Metoprolol 25 qd and Quinapril 40 qd as BP tolerates once taking oral intake 7. PT as tolerated
[2019-07-08] MEDS: ASPIRIN 81 MG CHEWABLE TABLETS PO SCH (10:37)
[2019-07-08 10:38] LABS: ANISOCYTOSIS 1+; HOWELL-JOLLY BODIES 1+; MACROCYTOSIS 0; PLATELET ESTIMATE NORMAL
[2019-07-08] MEDS: PANTOPRAZOLE SODIUM 40 MG VIAL IVPUSH SCH (10:41)
[2019-07-08] MEDS: AZITHROMYCIN IVPB 500 MG/250 ML BAG IVPB SCH (12:22)
[2019-07-08] MEDS: KCL 10 MEQ IVPB 10 MEQ/100 ML INFUS.BAG IVPB SCH ×3 (12:25→16:45)
--- NOTE | 2019-07-08 13:01 | PN ---
Progress Note, SAIL MAKER - Note Progress Note: Alert today. NGT d/c'd yesterday. Non verbal (baseline nonverbal but no difficulty with swallowing). Gege-pharyngeal secretions suctioned, + gag. SWallow assessed with very delayed swallow, questionable function, strong suspicion for aspiration. Swallow may improve as pt becomes stronger. Continue NPO for now. Pending meeting with Palliative care today regarding pt's wishes.
[2019-07-08] MEDS ORDERED: INSULIN (NOVOLOG) ASPART 100 UNITS/ML 10ML VIAL ONE (15:12)
--- NOTE | 2019-07-08 15:38 | CON.NEURO ---
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 Cardio/Vascular: Yes: HTN, Hyperlipdemia Pulmonary: Yes: Bronchitis, Sleep Apnea, Other (Bronchiectasis) Gastrointestinal: Yes: GERD, Other (rectal prolapse post operative suspension procedure) Hepatobiliary: Yes: Cholelithiasis ...: No Psych: Yes: Anxiety, Schizophrenia Rheumatology: Yes: Other (chondrocalcinosis) Endocrine: Yes: Diabetes Mellitus - Alcohol/Substance Use Hx Alcohol Use: No - Smoking History Smoking history: Never smoked Have you smoked in the past 12 months: No Aproximately how many cigarettes per day: 0 - Social History Usual Living Arrangement: Alone ADL: Family Assistance History of Recent Travel: No Home Medications - Allergies Allergies/Adverse Reactions: Allergies Allergy/AdvReac Type Severity Reaction Status Date / Time No Known Allergies Allergy Verified 04/18/19 14:54 - Home Medications Home Medications: Ambulatory Orders Atorvastatin Ca [Lipitor] 10 mg PO HS #0 tablet 06/14/13 Levothyroxine [Synthroid -] 75 mcg PO DAILY #0 tablet 06/14/13 Metoprolol Succinate [Toprol XL -] 25 mg PO DAILY #0 tab.sr.24h 06/14/13 Multivit-Min/FA/Lycopene/Lut [Centrum Silver Tablet] 1 each PO DAILY #0 tablet 06/14/13 Quinapril HCl [Accupril -] 40 mg PO DAILY #0 tablet 06/14/13 Ascorbic Acid [Vitamin C -] 500 mg PO DAILY #30 tablet 06/20/14 Tramadol HCl 50 mg PO PRN PRN 12/21/15 Alprazolam [Xanax] 2 tablet PO HS 01/22/16 Aspirin [ASA -] 81 mg PO DAILY 01/22/16 Cyanocobalamin (Vitamin B-12) [Vitamin B12] 5,000 mcg PO DAILY 01/22/16 Ibuprofen/Diphenhydramine Cit [Advil Pm Caplet] 1 each PO HS PRN 01/22/16 Memantine HCl [Namenda -] 20 mg PO HS 01/22/16 Metformin HCl [Riomet] 750 mg PO DAILY 01/22/16 Cephalexin [Keflex] 500 mg PO BID #14 capsule 04/18/19 Physical Exam-Neuro Vital Signs: Vital Signs Temperature 98.1 F 07/08/19 06:39 Pulse Rate 86 07/08/19 06:39 Respiratory Rate 20 07/08/19 06:39 Blood Pressure 142/74 07/08/19 06:39 O2 Sat by Pulse Oximetry (%) 96 07/07/19 09:00 Labs: CBC, BMP 07/08/19 08:16 07/08/19 08:16 INR, PTT INR 1.65 (0.83-1.09) H 07/03/19 01:04 Assessment/Plan CC Worsening of mental status HPI 89 year old female history of dementia, HTN, HLD, hypothyroidism, anemia, TIA, and NIDDM came to hospital for respiratory failure, septicemia and she was intubated and extubated. She remains to confused and non verbal. Patient has not had any ct head. She has history of dementia and resident of [place]. Patient is not in any distress. I spoke to nursing staff. She is afebrile and no acut edistress. PAST MEDICAL HISTORY: dementia, HTN, HLD, hypothyroidism, anemia, TIA, and NIDDM PAST SURGICAL HISTORY: rectal prolapse x3 Social History: Smoking: never smoked Lives with son's family Allergies No Known Allergies Allergy (Verified 04/18/19 14:54) HOME MEDICATIONS: Home Medications Medication Instructions Recorded Atorvastatin Ca [Lipitor] 10 mg PO HS #0 tablet 06/14/13 Levothyroxine [Synthroid -] 75 mcg PO DAILY #0 tablet 06/14/13 Metoprolol Succinate [Toprol XL -] 25 mg PO DAILY #0 tab.sr.24h 06/14/13 Multivit-Min/FA/Lycopene/Lut 1 each PO DAILY #0 tablet 06/14/13 [Centrum Silver Tablet] Quinapril HCl [Accupril -] 40 mg PO DAILY #0 tablet 06/14/13 Ascorbic Acid [Vitamin C -] 500 mg PO DAILY #30 tablet 06/20/14 Tramadol HCl 50 mg PO PRN PRN 12/21/15 Alprazolam [Xanax] 2 tablet PO HS 01/22/16 Aspirin [ASA -] 81 mg PO DAILY 01/22/16 Cyanocobalamin (Vitamin B-12) 5,000 mcg PO DAILY 01/22/16 [Vitamin B12] Ibuprofen/Diphenhydramine Cit 1 each PO HS PRN 01/22/16 [Advil Pm Caplet] Memantine HCl [Namenda -] 20 mg PO HS 01/22/16 Metformin HCl [Riomet] 750 mg PO DAILY 01/22/16 Cephalexin [Keflex] 500 mg PO BID #14 capsule 04/18/19 ROS,FH,SH reviewed in chart NEUROLOGICAL EXAMIANTION Alert , no response to verbal stimuli, she withdraws to pain on left more than right eomi, pupils reactive no face asymmetry unable to coopeate, left is moving more than right ct head not done Assessment/Plan 89 year old female history of dementia, HTN, HLD, hypothyroidism, anemia, TIA, and NIDDM came to hospital for pneumonia, and septicemia. She was in icu , inutbated and extubated. Now has worse mental status than before. Unlikely to be meningitis. Worsening of dementia vs delirium Suspect component of critical illness encephalopathy as well. Plan: continue pt, supportive care - would do ct head - overall prognosis is guarded, at times,may not go back to her baseline, once acute illness is resolved Thanking you so much David Paris MD
--- NOTE | 2019-07-08 16:06 | PN ---
Progress Note, Physician History of Present Illness: Pt seen and examined at bedside. She is more awake today. She did not pass swallow eval. - Current Medication List Current Medications: Active Medications Acetaminophen (Ofirmev Injection -) 1,000 mg IVPB Q6H PRN PRN Reason: FEVER Last Admin: 07/08/19 06:08 Dose: 1,000 mg Albuterol/Ipratropium (Duoneb -) 1 amp NEB Q4H PRN PRN Reason: SHORTNESS OF BREATH Aspirin (Asa -) 81 mg PO DAILY SIL[facility]INO Last Admin: 07/08/19 10:37 Dose: Not Given Atorvastatin Calcium (Lipitor -) 10 mg PO HS SIL[facility]INO Last Admin: 07/07/19 21:43 Dose: Not Given Furosemide (Lasix Injection -) 20 mg IVPUSH ONCE ONE Stop: 07/08/19 18:31 Heparin Sodium (Porcine) (Heparin -) 5,000 unit SQ TID SILVINO Last Admin: 07/08/19 15:26 Dose: 5,000 unit Potassium Chloride 10 meq/ (Dextrose) 1,005 mls @ 65 mls/hr IV Q15H SILVINO Last Admin: 07/08/19 06:06 Dose: 65 mls/hr Azithromycin (Zithromax 500mg Ivpb (Pre-Docked)) 500 mg in 250 mls @ 250 mls/ hr IVPB DAILY [facility] Last Admin: 07/08/19 12:22 Dose: 250 mls/hr Piperacillin Sod/Tazobactam (Sod 2.25 gm/ Dextrose) 50 mls @ 100 mls/hr IVPB Q8H-IV [facility]; Protocol Last Admin: 07/08/19 10:41 Dose: 100 mls/hr Insulin Aspart (Novolog Vial Sliding Scale -) 1 vial SQ Q6H SIL[facility]INO; Protocol Last Admin: 07/08/19 12:32 Dose: Not Given Pantoprazole Sodium (Protonix Iv) 40 mg IVPUSH DAILY [facility] Last Admin: 07/08/19 10:41 Dose: 40 mg - Objective Vital Signs: Vital Signs Temperature 98.1 F 07/08/19 06:39 Pulse Rate 86 07/08/19 06:39 Respiratory Rate 20 07/08/19 06:39 Blood Pressure 142/74 07/08/19 06:39 O2 Sat by Pulse Oximetry (%) 96 01/08/20 09:00 Constitutional: Yes: Calm Eyes: Yes: Conjunctiva Clear HENT: Yes: Atraumatic Neck: Yes: Supple Cardiovascular: Yes: S1, S2 Respiratory: Yes: CTA Bilaterally Gastrointestinal: Yes: Soft Genitourinary: Yes: Incontinence Musculoskeletal: Yes: Muscle Weakness Edema: Yes Neurological: Yes: Confusion Labs: CBC, BMP 07/08/19 08:16 07/08/19 08:16 INR, PTT INR 1.65 (0.83-1.09) H 07/03/19 01:04 Assessment/Plan Current Medications Generic Name Dose Route Start Last Admin Trade Name Freq PRN Reason Stop Dose Admin Acetaminophen 1,000 mg 07/07/19 20:09 07/08/19 06:08 Ofirmev Injection - IVPB 1,000 mg Q6H PRN Administration FEVER Albuterol/Ipratropium 1 amp 07/07/19 20:09 Duoneb - NEB Q4H PRN SHORTNESS OF BREATH Aspirin 81 mg 07/08/19 10:00 07/08/19 10:37 Asa - PO Not Given DAILY SILVINO Atorvastatin Calcium 10 mg 07/07/19 22:00 07/07/19 21:43 Lipitor - PO Not Given HS SILVINO Furosemide 20 mg 07/08/19 18:30 Lasix Injection - IVPUSH 07/08/19 18:31 ONCE ONE Heparin Sodium (Porcine) 5,000 unit 07/07/19 22:00 07/08/19 15:26 Heparin - SQ 5,000 unit TID SILVINO Administration Potassium Chloride 10 meq/ 1,005 mls @ 65 mls/hr 07/07/19 12:00 07/08/19 06: 06 Dextrose IV 65 mls/hr Q15H SILVINO Administration Azithromycin 500 mg in 250 mls @ 250 mls/hr 07/08/19 10:00 07/08/19 12:22 Zithromax 500mg Ivpb (Pre-Docked) IVPB 250 mls/hr DAILY SILVINO Administration Piperacillin Sod/Tazobactam 50 mls @ 100 mls/hr 07/08/19 02:00 07/08/19 10:41 Sod 2.25 gm/ Dextrose IVPB 100 mls/hr Q8H-IV S[facility]INO Administration Protocol Insulin Aspart 1 vial 07/08/19 00:30 07/08/19 12:32 Novolog Vial Sliding Scale - SQ Not Given Q6H SILVINO Protocol Pantoprazole Sodium 40 mg 07/08/19 10:00 07/08/19 10:41 Protonix Iv IVPUSH 40 mg DAILY SILVINO Administration 1. JELANI 2. Metabolic acidosis 3. Hypernatremia 4. Sepsis 5. Respiratory failure 6. Anemia 7. PNA 8. hypokalemia Plan - will change fluids to clinimix as she is npo - replace potassium - check mag - discussed with family, they are considering GOC - renal function stable - avoid nephrotoxins
--- NOTE | 2019-07-08 16:10 | PN ---
Progress Note (short form) - Note Progress Note: Hospitalist Medicine Per son, pt is at close to baseline now. pt now smiling and mouthing few words. Lives with him and has 24hr health aid and assistance at home. Would like to bring dentures before considering repeat NGT or possibility of PEG placement. Code status discussed - pt is full code Vitals 07/08/19 06:39 Temperature 98.1 F Pulse Rate 86 Respiratory 20 Rate Blood Pressure 142/74 Physical Exam general: resting in bed, sitting up heent: NCAT, PERRLA neck: supple cardio: S1, S2 RRR. no r/m/g pulm: +scattered wheezes. no accessory m usage abdomen: soft, nontender, nondistended LE: 2+ pulses, 1+ edema +moreira for d/c +intubated (07/03); extubated (07/06) +R IJ line (07/03) removed neuro: more interactive this afternoon. smiling, mouthing few words. recognizes son. Laboratory Tests 07/08/19 07/08/19 08:16 08:16 WBC 4.9 Hgb 6.9 L* Hct 20.8 L Plt Count 171 Sodium 143 Potassium 3.2 L Chloride 112 H Carbon Dioxide 24 Anion Gap 6 L BUN 15.1 Creatinine 0.9 Est GFR (CKD-EPI)AfAm 65.70 Est GFR (CKD-EPI)NonAf 56.69 Random Glucose 126 H Calcium 7.6 L Phosphorus 2.6 Magnesium 1.9 Microbiology 07/03/19 17:20 Urine - Urine [place] Legionella Antigen - Final 07/03/19 17:20 Sputum - Endotrachea Suction/Ventilator Gram Stain - Final 07/03/19 02:14 Urine - Urine [place] Urine Culture - Final Enterococcus Faecalis 07/03/19 01:04 Blood - Peripheral Venous Blood Culture - Final Staphylococcus Epidermidis 07/04/19 05:50 Blood - Peripheral Venous Blood Culture - Preliminary NO GROWTH OBTAINED AFTER 72 HOURS, INCUBATION TO CONTINUE FOR 2 DAYS. 07/04/19 05:25 Blood - Peripheral Venous Blood Culture - Preliminary NO GROWTH OBTAINED AFTER 72 HOURS, INCUBATION TO CONTINUE FOR 2 DAYS. 07/03/19 17:20 Urine - Urine [place] Streptococcus pneumoniae Antigen (M - Preliminary 07/03/19 17:20 Sputum - Endotrachea Suction/Ventilator Sputum Culture - Preliminary Enterobacter Aerogenes Klebsiella Pneumoniae 07/03/19 01:22 Blood - Peripheral Venous Blood Culture - Preliminary NO GROWTH OBTAINED AFTER 96 HOURS, INCUBATION TO CONTINUE FOR 1 DAYS. Imaging 07/03/19: CXR: new atelectasis, infiltrate at L base. ETT well above christine. sclerotic knob. degenerative changes. 07/03/19 AXR: degenerative changes, OGT with tip in LUQ, ETT present with tip well above christine 07/03/19 CXR: pulm and pleural changes at L base, paucity of bowel gas 07/03/19: CXR: ETT tip below clavicular head level. NGT with tip in stomach. new R IJ ; tip in SVC. no pneumo. retrocardiac area is dense. sclerotic knob. large heart. 07/04/19: ETT, NGT, R jugular line, dense L base, sclerotic knob 07/05/19: CXR: ETT, R IJ line, NGT persist. sclerotic knob, large heart, dense L base, congestive changeshave increased slightly 07/06/19: CXR: in Am, bibasilar pulm pleural changes with ETT, NGT, R jugular line persist. cardiomegaly, sclerotic knob, dense L base 07/03/19: EKG: sinus tach, rate 112bpm, qtc 505ms. ST changes lateral leads 07/03/19: EKG: NSR, rate 94bpm, qtc 487ms 07/04/19: EKG: NSR 61bpm, qtc 446ms. 07/05/19: ECHO: LV normal, LVSF normal, EF 55-60%, mild MR, mod TR, mod valvular no pericardial effusion, +pleural effusion 07/06/19: CXR: bibasilar pulm pleural changes with ETT, NGT, R jug line, cardiomegaly, dense L base. no significant change Assessment/Plan 89 y/o F h/o TIA, chronic anemia, dementia, HTN, NIDDM, HLD, who presented with septic shock due to acute hypoxemic respiratory failure 2/2 LLL CAP and urosepsis. #Acute hypoxemic RF 2/2 LLL CAP -c/w vanc x1, zosyn, zithro (06/03). ?may need to change to rocephin based on c+s -extubated (07/06) -initial blood cx: +staph coag (-) (?) contaminant. -sputum: entero, klebsiella (+) -legionella (-), repeat blood cx (-) -IV tylenol PRN for fever -Pulm: Dr. Fitzpatrick -ID: Dr. Harrell #Septic shock 2/2 urosepsis, LLL CAP -off pressors, R IJ line removed -most recent lactic 1.3 -maintain MAP > 65 -ucx: (+)e.faecalis >100,000 cfu -c/w zosyn, zithro (06/03); may be able to de-escalate to ?rocephin -c/w moreira -ID: Dr. Harrell #Acute toxic metabolic encephalopathy - improved -possible as pt more prone as w/ dementia, +ICU delirium -ABG without c02 retention -f/u CT head -neuro consult: Dr. Paris #Normocytic anemia likely chronic -receiving 1U PRBCs. will f/u repeat CBC 8pm -transfusion threshold Hb<7 #UE edema -f/u duplex UE #Hypernatremia -free h20 deficit: 1.5L -now on clinimix #JELANI 2/2 hypoperfusion -resolved -c/t monitor #Tropinemia likely 2/2 demand -trops trending down. do not need to cont following -ECHO noted above -Cardio: Dr. Bermudez #T2DM -c/w ISS, BGM ACHS -BG control < 180 -hold metformin #HTN -restart toprol, quinapril when BP tolerates #HLD -restart statin #hx TIA -c/w asa, statin #code status full code. d/w son at length #F/E/N off IVF continue to follow lytes NPO. but on clinimix #PPX DVT: on hep 5k sq tid GI: protonix #Dispo monitoring on med-surg
[2019-07-08] MEDS ORDERED: POTASSIUM CHLORIDE 20 MEQ in AMINO ACIDS 4.25%/D5W 1,000 ML IVPB SCH (16:15)
[2019-07-08] MEDS ORDERED: FUROSEMIDE 40 MG/4 ML INJECTABLE VIAL IVPUSH ONE (18:30)
[2019-07-08] MEDS ORDERED: ACETAMINOPHEN 1000 MG/100 ML VIAL (NON FORMULARY) IVPB PRN (18:54)
--- NOTE | 2019-07-08 19:08 | PN ---
Teaching Attending Note Name of Resident: Rupinder Honeycutt ATTENDING PHYSICIAN STATEMENT I saw and evaluated the patient. I reviewed the resident's note and discussed the case with the resident. I agree with the resident's findings and plan as documented. SUBJECTIVE: Seen and examined at bedside, lethargic, family at bedside OBJECTIVE: Vital Signs - 24 hr 07/07/19 07/07/19 07/08/19 19:35 22:00 02:10 Temperature 97.6 F 99.4 F 97.8 F Pulse Rate 81 91 H 85 Respiratory 20 20 22 H Rate Blood Pressure 184/82 H 145/72 140/69 O2 Sat by Pulse Oximetry (%) 07/08/19 07/08/19 07/08/19 06:39 09:00 10:00 Temperature 98.1 F 97.6 F Pulse Rate 86 68 Respiratory 20 20 20 Rate Blood Pressure 142/74 148/75 O2 Sat by Pulse 98 Oximetry (%) 07/08/19 14:00 Temperature 97.8 F Pulse Rate 67 Respiratory 20 Rate Blood Pressure 142/72 O2 Sat by Pulse Oximetry (%) PE: Gen: NAD CVS: S1, S2 RRR. no r/m/g Lungs: dec air entry/effort, wheezing Abdomen:: soft, nontender, nondistended LE: 1+ edema Current Medications Acetaminophen (Ofirmev Injection -) 1,000 mg IVPB Q6H PRN PRN Reason: PAIN LEVEL 4 - 6 Albuterol/Ipratropium (Duoneb -) 1 amp NEB Q4H PRN PRN Reason: SHORTNESS OF BREATH Aspirin (Asa -) 81 mg PO DAILY [facility] Last Admin: 07/08/19 10:37 Dose: Not Given Atorvastatin Calcium (Lipitor -) 10 mg PO HS [facility] Last Admin: 07/07/19 21:43 Dose: Not Given Heparin Sodium (Porcine) (Heparin -) 5,000 unit SQ TID [facility] Last Admin: 07/08/19 15:26 Dose: 5,000 unit Azithromycin (Zithromax 500mg Ivpb (Pre-Docked)) 500 mg in 250 mls @ 250 mls/ hr IVPB DAILY [facility] Last Admin: 07/08/19 12:22 Dose: 250 mls/hr Piperacillin Sod/Tazobactam (Sod 2.25 gm/ Dextrose) 50 mls @ 100 mls/hr IVPB Q8H-IV SILVINO; Protocol Last Admin: 07/08/19 18:04 Dose: 100 mls/hr Potassium Chloride 20 meq/ (Amino Acids) 1,010 mls @ 65 mls/hr IVPB Q24H SILVINO Last Admin: 07/08/19 18:04 Dose: 65 mls/hr Insulin Aspart (Novolog Vial Sliding Scale -) 1 vial SQ Q6H SILVINO; Protocol Last Admin: 07/08/19 18:42 Dose: Not Given Pantoprazole Sodium (Protonix Iv) 40 mg IVPUSH DAILY SILVINO Last Admin: 07/08/19 10:41 Dose: 40 mg Laboratory Results - last 24 hr 07/07/19 07/08/19 07/08/19 23:17 06:04 08:16 WBC 4.9 RBC 2.34 L Hgb 6.9 L* Hct 20.8 L MCV 88.9 MCH 29.5 MCHC 33.2 RDW 14.2 Plt Count 171 MPV 7.9 Absolute Neuts (auto) 3.6 Neutrophils % 74.5 Neutrophils % (Manual) 67.7 Band Neutrophils % 2.0 Lymphocytes % 13.6 D Lymphocytes % (Manual) 22.3 D Monocytes % 10.1 D Monocytes % (Manual) 2 L Eosinophils % 1.5 Eosinophils % (Manual) 2.0 Basophils % 0.3 Basophils % (Manual) 1.0 D Myelocytes % (Man) 1 D Promyelocytes % (Man) 0 Blast Cells % (Manual) 0 Nucleated RBC % 0 Metamyelocytes 1 D Hypochromia 0 Platelet Estimate Normal Polychromasia 0 Poikilocytosis 1+ Anisocytosis 1+ Microcytosis 1+ Macrocytosis 0 [place] Bodies 1+ Sodium Potassium Chloride Carbon Dioxide Anion Gap BUN Creatinine Est GFR (CKD-EPI)AfAm Est GFR (CKD-EPI)NonAf POC Glucometer 185 154 Random Glucose Calcium Phosphorus Magnesium Blood Type Antibody Screen Crossmatch 07/08/19 07/08/19 07/08/19 08:16 10:05 12:31 WBC RBC Hgb Hct MCV MCH MCHC RDW Plt Count MPV Absolute Neuts (auto) Neutrophils % Neutrophils % (Manual) Band Neutrophils % Lymphocytes % Lymphocytes % (Manual) Monocytes % Monocytes % (Manual) Eosinophils % Eosinophils % (Manual) Basophils % Basophils % (Manual) Myelocytes % (Man) Promyelocytes % (Man) Blast Cells % (Manual) Nucleated RBC % Metamyelocytes Hypochromia Platelet Estimate Polychromasia Poikilocytosis Anisocytosis Microcytosis Macrocytosis [place] Bodies Sodium 143 Potassium 3.2 L Chloride 112 H Carbon Dioxide 24 Anion Gap 6 L BUN 15.1 Creatinine 0.9 Est GFR (CKD-EPI)AfAm 65.70 Est GFR (CKD-EPI)NonAf 56.69 POC Glucometer 142 Random Glucose 126 H Calcium 7.6 L Phosphorus 2.6 Magnesium 1.9 Blood Type A POSITIVE Antibody Screen Negative Crossmatch See Detail 07/08/19 18:33 WBC RBC Hgb Hct MCV MCH MCHC RDW Plt Count MPV Absolute Neuts (auto) Neutrophils % Neutrophils % (Manual) Band Neutrophils % Lymphocytes % Lymphocytes % (Manual) Monocytes % Monocytes % (Manual) Eosinophils % Eosinophils % (Manual) Basophils % Basophils % (Manual) Myelocytes % (Man) Promyelocytes % (Man) Blast Cells % (Manual) Nucleated RBC % Metamyelocytes Hypochromia Platelet Estimate Polychromasia Poikilocytosis Anisocytosis Microcytosis Macrocytosis Emery[place] Bodies Sodium Potassium Chloride Carbon Dioxide Anion Gap BUN Creatinine Est GFR (CKD-EPI)AfAm Est GFR (CKD-EPI)NonAf POC Glucometer 135 Random Glucose Calcium Phosphorus Magnesium Blood Type Antibody Screen Crossmatch Microbiology 07/03/19 17:20 Urine - Urine [place] Legionella Antigen - Final 07/03/19 17:20 Urine - Urine [place] Streptococcus pneumoniae Antigen (M - Final 07/04/19 05:50 Blood - Peripheral Venous Blood Culture - Preliminary NO GROWTH OBTAINED AFTER 96 HOURS, INCUBATION TO CONTINUE FOR 1 DAYS. 07/04/19 05:25 Blood - Peripheral Venous Blood Culture - Preliminary NO GROWTH OBTAINED AFTER 96 HOURS, INCUBATION TO CONTINUE FOR 1 DAYS. 07/03/19 01:22 Blood - Peripheral Venous Blood Culture - Final NO GROWTH AFTER 5 DAYS INCUBATION 07/03/19 17:20 Sputum - Endotrachea Suction/Ventilator Gram Stain - Final 07/03/19 17:20 Sputum - Endotrachea Suction/Ventilator Sputum Culture - Preliminary Enterobacter Aerogenes Klebsiella Pneumoniae 07/03/19 01:04 Blood - Peripheral Venous Blood Culture - Final Staphylococcus Epidermidis 07/03/19 02:14 Urine - Urine [place] Urine Culture - Final Enterococcus Faecalis all imaging reports reviewed ASSESSMENT AND PLAN: 89 year old woman with a history of HTN, hyperlipidemia, type 2 DM, anemia, TIA , dementia who presented to the ED with respiratory distress. 1. Septic shock secondary to Acute hypoxic respiratory failure secondary to pneumonia and E. faecalis UTI -Extubated 07/06/19 -c/w current abx, follow up cultures -family meeting on goals of care -patient failed swallow eval, NGT attempt was not successful 2. NC Anemia -transfused 1 unit PRBCs 07/04 -transfuse another unit today -monitor h/h Acute kidney injury secondary to hypoperfusion-resolved Demand ischemia Hypernatremia, resolved Hypokalemia-resolved Hypophosphatemia-resolved Type 2 DM HTN HLD History of TIA -cw current regimen
[2019-07-08] MEDS: ATORVASTATIN CA 10 MG TABLET (FP) PO SCH (22:14)
[2019-07-09] MEDS ORDERED: HEPARIN NA (PORCINE) 5,000 UNITS/ML 1ML VIAL IVPUSH PRN ×2 (00:35)
[2019-07-09] MEDS: INSULIN SLIDING SCALE (NOVOLOG) 1 VIAL SQ SCH ×5 (00:38→23:46)
[2019-07-09] MEDS: PIPERACILLIN/TAZOB 2.25 GM 2.25 GM in DEXTROSE 5%-WATER - 50 ML IVPB SCH ×3 (02:15→19:06)
[2019-07-09 02:23] LABS: BASO % 0.5 % (0-2.0); HEMATOCRIT 27.2 % (32.4-45.2); LYMPH % 12.9 % (8-40); MCH 29.3 pg (25.7-33.7); MCHC 33.1 g/dl (32.0-36.0); MEAN CELL VOLUME 88.7 fl (80-96); MONO % 8.4 % (3.8-10.2); NEUT % 76.2 % (42.8-82.8); PLATELET COUNT 196 K/MM3 (134-434); RBC 3.06 M/mm3 (3.60-5.2); RDW 14.5 % (11.6-15.6); WHITE BLOOD COUNT 6.1 K/mm3 (4.0-10.0)
[2019-07-09] MEDS ORDERED: DEXTROSE 5%-WATER - 50 ML IVPB ONE ×3 (02:27→17:47)
[2019-07-09] MEDS ORDERED: PIPERACILLIN/TAZOBACTAM 2.25 GM VIAL IVPB ONE ×3 (02:27→17:47)
[2019-07-09] MEDS: HEPARIN - 25,000 UNIT in SODIUM CHLORIDE 495 ML IV SCH (05:12)
[2019-07-09 09:00] LABS: BASO % 0.2 % (0-2.0); EOS % 1.8 % (0-4.5); HEMATOCRIT 24.6 % (32.4-45.2); HEMOGLOBIN 8.1 GM/dL (10.7-15.3); LYMPH % 11.1 % (8-40); MCH 29.2 pg (25.7-33.7); MCHC 32.7 g/dl (32.0-36.0); MEAN CELL VOLUME 89.3 fl (80-96); MEAN PLT VOLUME 8.1 fl (7.5-11.1); MONO % 8.2 % (3.8-10.2); NEUT % 78.7 % (42.8-82.8); PLATELET COUNT 187 K/MM3 (134-434); RBC 2.75 M/mm3 (3.60-5.2); RDW 14.8 % (11.6-15.6); WHITE BLOOD COUNT 5.8 K/mm3 (4.0-10.0)
--- NOTE | 2019-07-09 09:06 | PN ---
Progress Note (short form) - Note Progress Note: PULMONARY Awake, not able to answer questions. NAD. No acute events overnight. Gen: NAD Heart: RRR Lung: scattered rhonchi Abd: soft, nontender Ext: + edema ASSESSMENT AND PLAN: Acute Hypoxic Respiratory Failure improved Pneumonia UTI Bacteremia Septic Shock resolving Acute Kidney Injury improving Lactic Acidosis +Troponins likely Demand Ischemia Aortic Stenosis Pulmonary HTN DM Hypothyroidism Hypercholesterolemia h/o CVA Dementia Anemia - ABX coverage - free water - aspiration precautions - DVT/GI prophylaxis Alexi ALMAGUER MD
[2019-07-09 09:28] LABS: ALBUMIN 1.6 g/dl (3.4-5.0); BILIRUBIN,TOTAL 0.3 mg/dL (0.2-1); BLOOD UREA NITROGEN 16.4 mg/dL (7-18); CREATININE 0.9 mg/dL (0.55-1.3); MAGNESIUM 1.3 mg/dL (1.8-2.4); POTASSIUM 4.9 mmol/L (3.5-5.1); TOT PROT 4.5 g/dl (6.4-8.2)
[2019-07-09 09:32] LABS: CALCIUM 6.6 mg/dL (8.5-10.1)
--- NOTE | 2019-07-09 09:52 | PN ---
Progress Note, Physician History of Present Illness: Lethargic afebrile, not taking oral intake yet. - Current Medication List Current Medications: Active Medications Acetaminophen (Ofirmev Injection -) 1,000 mg IVPB Q6H PRN PRN Reason: PAIN LEVEL 4 - 6 Last Admin: 07/08/19 19:08 Dose: 1,000 mg Albuterol/Ipratropium (Duoneb -) 1 amp NEB Q4H PRN PRN Reason: SHORTNESS OF BREATH Aspirin (Asa -) 81 mg PO DAILY SILVINO Last Admin: 07/08/19 10:37 Dose: Not Given Atorvastatin Calcium (Lipitor -) 10 mg PO HS SILVINO Last Admin: 07/08/19 22:14 Dose: 10 mg Heparin Sodium (Porcine) (Heparin -) 1,000 unit IVPUSH PRN PRN PRN Reason: Heparin Last Admin: 07/09/19 05:14 Dose: 1,000 unit Heparin Sodium (Porcine) (Heparin -) 5,000 unit IVPUSH PRN PRN PRN Reason: Heparin Azithromycin (Zithromax 500mg Ivpb (Pre-Docked)) 500 mg in 250 mls @ 250 mls/ hr IVPB DAILY [facility] Last Admin: 07/08/19 12:22 Dose: 250 mls/hr Piperacillin Sod/Tazobactam (Sod 2.25 gm/ Dextrose) 50 mls @ 100 mls/hr IVPB Q8H-IV SIL[facility]; Protocol Last Admin: 07/09/19 02:15 Dose: 100 mls/hr Potassium Chloride 20 meq/ (Amino Acids) 1,010 mls @ 65 mls/hr IVPB Q24H [facility] Last Admin: 07/08/19 18:04 Dose: 65 mls/hr Heparin Sodium (Porcine) 25, (000 unit/ Sodium Chloride) 500 mls @ 16 mls/hr IV TITR S[facility]; Protocol Last Admin: 07/09/19 05:12 Dose: 900 unit/hr, 18 mls/hr Insulin Aspart (Novolog Vial Sliding Scale -) 1 vial SQ Q6H [facility]; Protocol Last Admin: 07/09/19 05:44 Dose: 2 units Pantoprazole Sodium (Protonix Iv) 40 mg IVPUSH DAILY [facility] Last Admin: 07/08/19 10:41 Dose: 40 mg - Objective Vital Signs: Vital Signs Temperature 97.9 F 07/09/19 07:00 Pulse Rate 62 07/09/19 07:00 Respiratory Rate 20 07/09/19 07:00 Blood Pressure 164/76 07/09/19 07:00 O2 Sat by Pulse Oximetry (%) 98 07/08/19 21:00 Constitutional: Yes: No Distress, Calm, Thin Neck: Yes: Supple Cardiovascular: Yes: Regular Rate and Rhythm Respiratory: Yes: Regular, Diminished, On Nasal O2 Gastrointestinal: Yes: Soft, Hypoactive Bowel Sounds Edema: No Labs: CBC, BMP 07/09/19 08:15 07/09/19 08:15 INR, PTT INR 1.65 (0.83-1.09) H 07/03/19 01:04 - ....Imaging Chest X-ray: Report Reviewed (Increasing CHF and effusions) Ultrasound: Report Reviewed (RUE brachial vein DVT) Problem List - Problems (1) Septic shock Code(s): A41.9 - SEPSIS, UNSPECIFIED ORGANISM; R65.21 - SEVERE SEPSIS WITH SEPTIC SHOCK (2) Acute hypoxemic respiratory failure Code(s): J96.01 - ACUTE RESPIRATORY FAILURE WITH HYPOXIA (3) Demand ischemia Code(s): I24.8 - OTHER FORMS OF ACUTE ISCHEMIC HEART DISEASE (4) Hypercholesterolemia Code(s): E78.00 - PURE HYPERCHOLESTEROLEMIA, UNSPECIFIED (5) UTI (urinary tract infection) Code(s): N39.0 - URINARY TRACT INFECTION, SITE NOT SPECIFIED Qualifiers: Urinary tract infection type: site unspecified (6) JELANI (acute kidney injury) Code(s): N17.9 - ACUTE KIDNEY FAILURE, UNSPECIFIED Assessment/Plan 07/05/2019 Echocardiography reviewed. Moderate , pleural effusion, moderate TR 1. Acute hypoxemic respiratory failure improving 2. Post septic shock LLL pneumonia, urosepsis, bacteremia 3. Hypercholesterolemia 4. Hypothyoidism 5. NIDDM 6. Cerebrovascular disease, h/o TIA 7. Worsening of dementia vs delirium, with component of critical illness encephalopathy as well 8. Anemia 9. Demand ischemia 10. JELANI due to septic shock improving 11. Moderate 12. Moderate TR 13. Diastolic dysfunction with pleural effusion 14. RUE brachial DVT PLAN: 1. BD, O2 as needed, aspiration precautions 2. Complete antibiotic coverage per C&S 3. Heparin gtt->Eliquis 2.5 bid 4. Troponin downtrending, monitor Hgb and transfuse as needed 5. IV diuresis as needed with monitor diuretic response, renal fxn and electrolytes 6. Restart Metoprolol 25 qd and Quinapril 40 qd as BP tolerates once taking oral intake 7. PT as tolerated
--- NOTE | 2019-07-09 10:07 | PN ---
Progress Note (short form) - Note Progress Note: HPI 89 year old female history of dementia, HTN, HLD, hypothyroidism, anemia, TIA, and NIDDM came to hospital for respiratory failure, septicemia and she was intubated and extubated. She remains to confused and non verbal. Patient has not had any ct head. She has history of dementia and resident of [place]. Patient is not in any distress. I spoke to nursing staff. She is afebrile and no acut edistress. no new complain. NEUROLOGICAL EXAMIANTION Alert , no response to verbal stimuli, she withdraws to pain on left more than right eomi, pupils reactive no face asymmetry withdraws extremity to pain ct head no acute findings, and no interval change Assessment/Plan 89 year old female history of dementia, HTN, HLD, hypothyroidism, anemia, TIA, and NIDDM came to hospital for pneumonia, and septicemia. She was in icu , inutbated and extubated. Now has worse mental status than before. Unlikely to be meningitis. Worsening of dementia vs delirium Suspect component of critical illness encephalopathy as well. Plan: continue pt, supportive care - ct head reviewed, no acute findings - overall prognosis is guarded, at times,may not go back to her baseline, once acute illness is resolved Thanking you so much David Paris MD
[2019-07-09] MEDS: AZITHROMYCIN IVPB 500 MG/250 ML BAG IVPB SCH (10:18)
[2019-07-09] MEDS: PANTOPRAZOLE SODIUM 40 MG VIAL IVPUSH SCH (10:18)
[2019-07-09 11:32] LABS: ANISOCYTOSIS 1+; MACROCYTOSIS 0; PLATELET ESTIMATE NORMAL
[2019-07-09 11:56] LABS: ANISOCYTOSIS 0; MACROCYTOSIS 0; PLATELET ESTIMATE NORMAL
[2019-07-09] MEDS ORDERED: PT OWN MED DRAWER 7, Y5N ONE (13:01)
--- NOTE | 2019-07-09 13:58 | PN ---
Progress Note, BRICK OFFBEARER - Note Progress Note: Selected Entries 07/08/19 07/08/19 07/08/19 02:10 06:39 10:00 Supper Temperature 97.8 F 98.1 F 97.6 F 07/08/19 07/08/19 07/08/19 14:00 14:10 14:30 Supper Temperature 97.8 F 98.0 F 98.1 F 07/08/19 07/08/19 07/08/19 18:10 18:30 23:00 Supper NPO Temperature 98.9 F 98.3 F 07/09/19 07/09/19 07/09/19 02:20 07:00 10:34 Supper Temperature 98.2 F 97.9 F 98.6 F Laboratory Tests 07/08/19 08:16 WBC 4.9 More alert. Trial of nectar thick on tsp, with delayed but brisk swallow, with responsive brief cough. Suggest- Trial of Dys puree, honey thick liquid on a tsp.Ensure pudding HOB elevated with chin to neutral or flexed position. Wait for swallow before next trial. Monitor tolerance.
[2019-07-09 14:44] LABS: ALBUMIN 1.8 g/dl (3.4-5.0); BILIRUBIN,TOTAL 0.3 mg/dL (0.2-1); BLOOD UREA NITROGEN 17.7 mg/dL (7-18); CALCIUM 7.5 mg/dL (8.5-10.1); CREATININE 0.8 mg/dL (0.55-1.3); POTASSIUM 3.2 mmol/L (3.5-5.1); TOT PROT 5.1 g/dl (6.4-8.2)
[2019-07-09] MEDS ORDERED: POTASSIUM CHLORIDE ORAL LIQUID 20 MEQ/15 ML PO ONE (15:03)
--- NOTE | 2019-07-09 15:10 | PN ---
Progress Note, Physician History of Present Illness: Pt seen and examined at bedside. She is more awake today but confused. - Current Medication List Current Medications: Active Medications Acetaminophen (Ofirmev Injection -) 1,000 mg IVPB Q6H PRN PRN Reason: PAIN LEVEL 4 - 6 Last Admin: 07/08/19 19:08 Dose: 1,000 mg Albuterol/Ipratropium (Duoneb -) 1 amp NEB Q4H PRN PRN Reason: SHORTNESS OF BREATH Aspirin (Asa -) 81 mg PO DAILY SILVINO Last Admin: 07/08/19 10:37 Dose: Not Given Atorvastatin Calcium (Lipitor -) 10 mg PO HS SILVINO Last Admin: 07/08/19 22:14 Dose: 10 mg Heparin Sodium (Porcine) (Heparin -) 1,000 unit IVPUSH PRN PRN PRN Reason: Heparin Last Admin: 07/09/19 05:14 Dose: 1,000 unit Heparin Sodium (Porcine) (Heparin -) 5,000 unit IVPUSH PRN PRN PRN Reason: Heparin Azithromycin (Zithromax 500mg Ivpb (Pre-Docked)) 500 mg in 250 mls @ 250 mls/ hr IVPB DAILY SILVINO Last Admin: 07/09/19 10:18 Dose: 250 mls/hr Piperacillin Sod/Tazobactam (Sod 2.25 gm/ Dextrose) 50 mls @ 100 mls/hr IVPB Q8H-IV SILVINO; Protocol Last Admin: 07/09/19 10:18 Dose: 100 mls/hr Heparin Sodium (Porcine) 25, (000 unit/ Sodium Chloride) 500 mls @ 16 mls/hr IV TITR SILVINO; Protocol Last Admin: 07/09/19 05:12 Dose: 900 unit/hr, 18 mls/hr Potassium Chloride (Potassium Chloride 10 Meq Premix Ivpb -) 10 meq in 100 mls @ 100 mls/hr IVPB Q60M SILVINO Stop: 07/09/19 18:14 Potassium Chloride 40 meq/ (Amino Acids) 1,020 mls @ 65 mls/hr IVPB Q24H SILVINO Insulin Aspart (Novolog Vial Sliding Scale -) 1 vial SQ Q6H SILVINO; Protocol Last Admin: 07/09/19 12:30 Dose: 2 units Pantoprazole Sodium (Protonix Iv) 40 mg IVPUSH DAILY SILVINO Last Admin: 07/09/19 10:18 Dose: 40 mg - Objective Vital Signs: Vital Signs Temperature 98.6 F 07/09/19 10:34 Pulse Rate 57 L 07/09/19 10:34 Respiratory Rate 18 07/09/19 10:34 Blood Pressure 169/64 07/09/19 10:34 O2 Sat by Pulse Oximetry (%) 98 07/08/19 21:00 Constitutional: Yes: Calm Eyes: Yes: Conjunctiva Clear HENT: Yes: Atraumatic Neck: Yes: Supple Cardiovascular: Yes: S1, S2 Respiratory: Yes: CTA Bilaterally Gastrointestinal: Yes: Soft Genitourinary: Yes: WNL Musculoskeletal: Yes: WNL Edema: No Neurological: Yes: Confusion Labs: CBC, BMP 07/09/19 08:15 07/09/19 13:30 INR, PTT INR 1.65 (0.83-1.09) H 07/03/19 01:04 Assessment/Plan Current Medications Generic Name Dose Route Start Last Admin Trade Name Freq PRN Reason Stop Dose Admin Acetaminophen 1,000 mg 07/08/19 18:54 07/08/19 19:08 Ofirmev Injection - IVPB 1,000 mg Q6H PRN Administration PAIN LEVEL 4 - 6 Albuterol/Ipratropium 1 amp 07/07/19 20:09 Duoneb - NEB Q4H PRN SHORTNESS OF BREATH Aspirin 81 mg 07/08/19 10:00 07/08/19 10:37 Asa - PO Not Given DAILY SILVINO Atorvastatin Calcium 10 mg 07/07/19 22:00 07/08/19 22:14 Lipitor - PO 10 mg HS SILVINO Administration Heparin Sodium (Porcine) 1,000 unit 07/09/19 00:35 07/09/19 05:14 Heparin - IVPUSH 1,000 unit PRN PRN Administration Heparin Heparin Sodium (Porcine) 5,000 unit 07/09/19 00:35 Heparin - IVPUSH PRN PRN Heparin Azithromycin 500 mg in 250 mls @ 250 mls/hr 07/08/19 10:00 07/09/19 10:18 Zithromax 500mg Ivpb (Pre-Docked) IVPB 250 mls/hr DAILY SILVINO Administration Piperacillin Sod/Tazobactam 50 mls @ 100 mls/hr 07/08/19 02:00 07/09/19 10:18 Sod 2.25 gm/ Dextrose IVPB 100 mls/hr Q8H-IV SILVINO Administration Protocol Heparin Sodium (Porcine) 25, 500 mls @ 16 mls/hr 07/09/19 00:45 07/09/19 05: 12 000 unit/ Sodium Chloride IV 900 unit/hr TITR SILVINO 18 mls/hr Administration Protocol 800 UNIT/HR Potassium Chloride 10 meq in 100 mls @ 100 mls/hr 07/09/19 15:15 Potassium Chloride 10 Meq Premix Ivpb - IVPB 07/09/19 18:14 Q60M SILVINO Potassium Chloride 40 meq/ 1,020 mls @ 65 mls/hr 07/09/19 15:07 Amino Acids IVPB Q24H SILVINO Insulin Aspart 1 vial 07/08/19 00:30 07/09/19 12:30 Novolog Vial Sliding Scale - SQ 2 units Q6H SILVINO Administration Protocol Pantoprazole Sodium 40 mg 07/08/19 10:00 07/09/19 10:18 Protonix Iv IVPUSH 40 mg DAILY SILVINO Administration 1. JELANI 2. Metabolic acidosis 3. Hypernatremia 4. Sepsis 5. Respiratory failure 6. Anemia 7. PNA 8. hypokalemia Plan - replace potassium - cont clinimix and increase potassium - am labs error - repeat labs in am - renal function stable - avoid nephrotoxins
[2019-07-09 15:15] VITALS: BMI 23.2
[2019-07-09] MEDS: KCL 10 MEQ IVPB 10 MEQ/100 ML INFUS.BAG IVPB SCH ×3 (16:00→21:42)
[2019-07-09] MEDS: POTASSIUM CHLORIDE 40 MEQ in AMINO ACIDS 4.25%/D5W 1,000 ML IVPB SCH (16:32)
--- NOTE | 2019-07-09 17:00 | PN ---
Progress Note (short form) - Note Progress Note: Hospitalist Medicine Resting in bed, interactive. Looking around the room. Mouths few words. Discussed case w/ daughter over phone. Updated on plan Vitals 07/09/19 14:00 Temperature 98.7 F Pulse Rate 58 L Respiratory 18 Rate Blood Pressure 152/71 Physical Exam general: resting in bed heent: NCAT, PERRLA neck: supple cardio: S1, S2 RRR. no r/m/g pulm: +few wheezes. no accessory m usage abdomen: soft, nontender, nondistended LE: 2+ pulses, 1+ edema +intubated (07/03); extubated (07/06) +R IJ line (07/03) removed neuro: interactive, mouthing words Laboratory Tests 07/09/19 07/09/19 07/09/19 08:15 12:00 13:30 WBC 5.8 RBC 2.75 L Hgb 8.1 L Hct 24.6 L Plt Count 187 PTT (Actin FS) Cancelled Sodium 136 Potassium 3.2 L Chloride 104 Carbon Dioxide 25 BUN 17.7 Creatinine 0.8 Random Glucose 178 H AST 56 H Microbiology 07/03/19 17:20 Urine - Urine [place] Legionella Antigen - Final 07/03/19 17:20 Sputum - Endotrachea Suction/Ventilator Gram Stain - Final 07/03/19 02:14 Urine - Urine [place] Urine Culture - Final Enterococcus Faecalis 07/03/19 01:04 Blood - Peripheral Venous Blood Culture - Final Staphylococcus Epidermidis 07/04/19 05:50 Blood - Peripheral Venous Blood Culture - Preliminary NO GROWTH OBTAINED AFTER 72 HOURS, INCUBATION TO CONTINUE FOR 2 DAYS. 07/04/19 05:25 Blood - Peripheral Venous Blood Culture - Preliminary NO GROWTH OBTAINED AFTER 72 HOURS, INCUBATION TO CONTINUE FOR 2 DAYS. 07/03/19 17:20 Urine - Urine [place] Streptococcus pneumoniae Antigen (M - Preliminary 07/03/19 17:20 Sputum - Endotrachea Suction/Ventilator Sputum Culture - Preliminary Enterobacter Aerogenes Klebsiella Pneumoniae 07/03/19 01:22 Blood - Peripheral Venous Blood Culture - Preliminary NO GROWTH OBTAINED AFTER 96 HOURS, INCUBATION TO CONTINUE FOR 1 DAYS. Imaging 07/03/19: CXR: new atelectasis, infiltrate at L base. ETT well above christine. sclerotic knob. degenerative changes. 07/03/19 AXR: degenerative changes, OGT with tip in LUQ, ETT present with tip well above christine 07/03/19 CXR: pulm and pleural changes at L base, paucity of bowel gas 07/03/19: CXR: ETT tip below clavicular head level. NGT with tip in stomach. new R IJ ; tip in SVC. no pneumo. retrocardiac area is dense. sclerotic knob. large heart. 07/04/19: ETT, NGT, R jugular line, dense L base, sclerotic knob 07/05/19: CXR: ETT, R IJ line, NGT persist. sclerotic knob, large heart, dense L base, congestive changeshave increased slightly 07/06/19: CXR: in Am, bibasilar pulm pleural changes with ETT, NGT, R jugular line persist. cardiomegaly, sclerotic knob, dense L base 07/03/19: EKG: sinus tach, rate 112bpm, qtc 505ms. ST changes lateral leads 07/03/19: EKG: NSR, rate 94bpm, qtc 487ms 07/04/19: EKG: NSR 61bpm, qtc 446ms. 07/05/19: ECHO: LV normal, LVSF normal, EF 55-60%, mild MR, mod TR, mod valvular no pericardial effusion, +pleural effusion 07/06/19: CXR: bibasilar pulm pleural changes with ETT, NGT, R jug line, cardiomegaly, dense L base. no significant change 07/08/19: CXR:L pleural changes have decreased slightly, salivary dense retrocardiac area. Residual atelectasis at R base. Rest of study unchanged. 07/08/19: duplex UE: R arm DVT. thrombus in brachial vein. no DVT in LUE. 07/08/19: CT Head: (-) for acute abnormality. moderate periventricular and subcortical chronic microvascular changes. cerebral atrophy 07/09/19: CXR: worse. progresve b/l pulm and pleural changes Assessment/Plan 89 y/o F h/o TIA, chronic anemia, dementia, HTN, NIDDM, HLD, who presented with septic shock due to acute hypoxemic respiratory failure 2/2 LLL CAP and urosepsis. #Acute DVT RUE -started on hep gtt (07/08) -d/w daughter, risks vs. benefits of a/c. requesting continuation despite bleeding risk -can start on oral agent when able/ once swallow improved #Acute hypoxemic RF 2/2 LLL CAP -c/w vanc x1, zosyn, zithro (06/03). -extubated (07/06) -initial blood cx: +staph coag (-) (?) contaminant. -sputum: entero, klebsiella (+) -legionella (-), repeat blood cx (-) -IV tylenol PRN for fever -Pulm: Dr. Fitzpatrick -ID: Dr. Harrell #Septic shock 2/2 urosepsis, LLL CAP -off pressors, R IJ line removed -most recent lactic 1.3 -maintain MAP > 65 -ucx: (+)e.faecalis >100,000 cfu -c/w zosyn, zithro (06/03) -c/w moreira -ID: Dr. Harrell #Acute toxic metabolic encephalopathy - improved -possible as pt more prone as w/ dementia, +ICU delirium -ABG without c02 retention -CTH (-) -neuro consult: Dr. Paris #Normocytic anemia likely chronic -s/p 1 u prbcs (07/08) resp well. -transfusion threshold Hb<7 #Hypernatremia -free h20 deficit: 1.5L -c/w clinimix #JELANI 2/2 hypoperfusion -resolved -c/t monitor #Tropinemia likely 2/2 demand -trops trending down. do not need to cont following -ECHO noted above -Cardio: Dr. Bermudez #T2DM -c/w ISS, BGM ACHS -BG control < 180 -hold metformin #HTN -restart toprol, quinapril when BP tolerates #HLD -restart statin #hx TIA -c/w statin. asa held as on hep gtt. #code status full code. d/w son at length #F/E/N off IVF continue to follow lytes, corby K trial of dysphagia puree . and on clinimix #PPX DVT: on hep gtt GI: protonix #Dispo monitoring on med-surg <Tangela,Rupinder - Last Filed: 07/09/19 17:00> - Note Progress Note: Seen and examined. Please see resident note for further historical information. I personally verified all the castillo historical formation and exam findings. Personally in pretted imaging and diagnostics and reviewed appropriate results. I reviewed all labs and vital signs are per the resident note and EMR as documented. I agree with the above assessment and plan unless supplemented by myself and the following. <Mayte Srivastava - Last Filed: 07/09/19 17:49>
--- NOTE | 2019-07-09 19:17 | PN ---
Progress Note, Physician History of Present Illness: AWAKE, ALERT BUT CONFUSED FAMILY IN ATTENDANCE REPORT MENTAL STATUS NEAR BASELINE AFEBRILE + BC SCN X 1 C/W CONTAMINATION RENAL FUNCTION IMPROVED - Current Medication List Current Medications: Active Medications Acetaminophen (Ofirmev Injection -) 1,000 mg IVPB Q6H PRN PRN Reason: PAIN LEVEL 4 - 6 Last Admin: 07/08/19 19:08 Dose: 1,000 mg Albuterol/Ipratropium (Duoneb -) 1 amp NEB Q4H PRN PRN Reason: SHORTNESS OF BREATH Aspirin (Asa -) 81 mg PO DAILY SILVINO Last Admin: 07/08/19 10:37 Dose: Not Given Atorvastatin Calcium (Lipitor -) 10 mg PO HS SILVINO Last Admin: 07/08/19 22:14 Dose: 10 mg Heparin Sodium (Porcine) (Heparin -) 1,000 unit IVPUSH PRN PRN PRN Reason: Heparin Last Admin: 07/09/19 05:14 Dose: 1,000 unit Heparin Sodium (Porcine) (Heparin -) 5,000 unit IVPUSH PRN PRN PRN Reason: Heparin Azithromycin (Zithromax 500mg Ivpb (Pre-Docked)) 500 mg in 250 mls @ 250 mls/ hr IVPB DAILY SILVINO Last Admin: 07/09/19 10:18 Dose: 250 mls/hr Piperacillin Sod/Tazobactam (Sod 2.25 gm/ Dextrose) 50 mls @ 100 mls/hr IVPB Q8H-IV SILVINO; Protocol Last Admin: 07/09/19 19:06 Dose: 100 mls/hr Heparin Sodium (Porcine) 25, (000 unit/ Sodium Chloride) 500 mls @ 16 mls/hr IV TITR SILVINO; Protocol Last Titration: 07/09/19 13:00 Dose: 850 unit/hr, 17 mls/hr Potassium Chloride 40 meq/ (Amino Acids) 1,020 mls @ 65 mls/hr IVPB Q24H SILVINO Last Admin: 07/09/19 16:32 Dose: 65 mls/hr Insulin Aspart (Novolog Vial Sliding Scale -) 1 vial SQ Q6H SILVINO; Protocol Last Admin: 07/09/19 19:10 Dose: 2 units Pantoprazole Sodium (Protonix Iv) 40 mg IVPUSH DAILY SILVINO Last Admin: 07/09/19 10:18 Dose: 40 mg - Objective Vital Signs: Vital Signs Temperature 98.7 F 07/09/19 14:00 Pulse Rate 58 L 07/09/19 14:00 Respiratory Rate 18 07/09/19 14:00 Blood Pressure 152/71 07/09/19 14:00 O2 Sat by Pulse Oximetry (%) 98 07/08/19 21:00 Constitutional: Yes: No Distress Cardiovascular: Yes: Regular Rate and Rhythm, S1, S2 Respiratory: Yes: Diminished Gastrointestinal: Yes: Normal Bowel Sounds, Soft Edema: Yes Labs: CBC, BMP 07/09/19 08:15 07/09/19 13:30 INR, PTT INR 1.65 (0.83-1.09) H 07/03/19 01:04 Assessment/Plan ACUTE RESPIRATORY FAILURE S/P EXTUBATION LLL PNEUMONIA SEPSIS/SEPTIC SHOCK RESOLVED +BC SCN C/W CONTAMINATION UTI LACTIC ACIDOSIS RESOLVED RENAL FAILURE RESOLVED ANEMIA THROMBOCYTOPENIA RESOLVED HYPERNATREMIA CONTINUE ZOSYN D/C ZITHROMAX DISCUSSED WITH FAMILY AT BEDSIDE
[2019-07-09] MEDS: ATORVASTATIN CA 10 MG TABLET (FP) PO SCH (21:42)
[2019-07-09] MEDS ORDERED: INSULIN (NOVOLOG) ASPART 100 UNITS/ML 10ML VIAL ONE (23:36)
[2019-07-10] MEDS ORDERED: PIPERACILLIN/TAZOBACTAM 2.25 GM VIAL IVPB ONE ×3 (01:08→17:40)
[2019-07-10] MEDS ORDERED: DEXTROSE 5%-WATER - 50 ML IVPB ONE ×3 (01:08→17:40)
[2019-07-10] MEDS: PIPERACILLIN/TAZOB 2.25 GM 2.25 GM in DEXTROSE 5%-WATER - 50 ML IVPB SCH ×3 (01:21→17:42)
[2019-07-10] MEDS: HEPARIN - 25,000 UNIT in SODIUM CHLORIDE 495 ML IV SCH ×2 (01:22→09:31)
[2019-07-10] MEDS: INSULIN SLIDING SCALE (NOVOLOG) 1 VIAL SQ SCH ×3 (05:56→17:38)
[2019-07-10] MEDS ORDERED: INSULIN (NOVOLOG) ASPART 100 UNITS/ML 10ML VIAL ONE ×2 (07:25→11:22)
[2019-07-10] MEDS: PANTOPRAZOLE SODIUM 40 MG VIAL IVPUSH SCH (09:16)
--- NOTE | 2019-07-10 10:07 | PN ---
Progress Note, Physician - Current Medication List Current Medications: Active Medications Acetaminophen (Ofirmev Injection -) 1,000 mg IVPB Q6H PRN PRN Reason: PAIN LEVEL 4 - 6 Last Admin: 07/08/19 19:08 Dose: 1,000 mg Albuterol/Ipratropium (Duoneb -) 1 amp NEB Q4H PRN PRN Reason: SHORTNESS OF BREATH Aspirin (Asa -) 81 mg PO DAILY SILVINO Last Admin: 07/08/19 10:37 Dose: Not Given Atorvastatin Calcium (Lipitor -) 10 mg PO HS SILVINO Last Admin: 07/09/19 21:42 Dose: 10 mg Heparin Sodium (Porcine) (Heparin -) 1,000 unit IVPUSH PRN PRN PRN Reason: Heparin Last Admin: 07/09/19 05:14 Dose: 1,000 unit Heparin Sodium (Porcine) (Heparin -) 5,000 unit IVPUSH PRN PRN PRN Reason: Heparin Piperacillin Sod/Tazobactam (Sod 2.25 gm/ Dextrose) 50 mls @ 100 mls/hr IVPB Q8H-IV SILVINO; Protocol Last Admin: 07/10/19 09:16 Dose: 100 mls/hr Heparin Sodium (Porcine) 25, (000 unit/ Sodium Chloride) 500 mls @ 16 mls/hr IV TITR SILVINO; Protocol Last Admin: 07/10/19 09:31 Dose: 850 unit/hr, 17 mls/hr Potassium Chloride 40 meq/ (Amino Acids) 1,020 mls @ 65 mls/hr IVPB Q24H SILVINO Last Admin: 07/09/19 16:32 Dose: 65 mls/hr Insulin Aspart (Novolog Vial Sliding Scale -) 1 vial SQ Q6H SILVINO; Protocol Last Admin: 07/10/19 05:56 Dose: Not Given Pantoprazole Sodium (Protonix Iv) 40 mg IVPUSH DAILY SILVINO Last Admin: 07/10/19 09:16 Dose: 40 mg - Objective Vital Signs: Vital Signs Temperature 97.8 F 07/10/19 06:00 Pulse Rate 68 07/10/19 06:00 Respiratory Rate 20 07/10/19 06:00 Blood Pressure 163/83 07/10/19 06:00 O2 Sat by Pulse Oximetry (%) 95 07/09/19 21:00 Eyes: Yes: WNL, Conjunctiva Clear, EOM Intact HENT: Yes: WNL, Atraumatic, Normocephalic Neck: Yes: WNL, Supple, Trachea Midline Cardiovascular: Yes: WNL, Regular Rate and Rhythm Respiratory: Yes: WNL, Regular, CTA Bilaterally Gastrointestinal: Yes: WNL, Normal Bowel Sounds Genitourinary: Yes: WNL Musculoskeletal: Yes: WNL Extremities: Yes: WNL Edema: No Integumentary: Yes: WNL Neurological: Yes: WNL, Alert, Oriented ...Motor Strength: WNL Psychiatric: Yes: WNL Labs: CBC, BMP 07/09/19 08:15 07/09/19 13:30 INR, PTT INR 1.65 (0.83-1.09) H 07/03/19 01:04 Assessment/Plan 07/05/2019 Echocardiography reviewed. Moderate , pleural effusion, moderate TR 1. Acute hypoxemic respiratory failure improving 2. Post septic shock LLL pneumonia, urosepsis, bacteremia 3. Hypercholesterolemia 4. Hypothyoidism 5. NIDDM 6. Cerebrovascular disease, h/o TIA 7. Worsening of dementia vs delirium, with component of critical illness encephalopathy as well 8. Anemia 9. Demand ischemia 10. JELANI due to septic shock improving 11. Moderate 12. Moderate TR 13. Diastolic dysfunction with pleural effusion 14. RUE brachial DVT PLAN: 1. BD, O2 as needed, aspiration precautions 2. Complete antibiotic coverage per C&S 3. Heparin gtt->Eliquis 2.5 bid 4. Troponin downtrending, monitor Hgb and transfuse as needed 5. IV diuresis as needed with monitor diuretic response, renal fxn and electrolytes 6. Restart Metoprolol 25 qd and Quinapril 40 qd as BP tolerates once taking oral intake 7. PT as tolerated coverage for dr. Bermudez
[2019-07-10 13:36] LABS: BASO % 0.5 % (0-2.0); EOS % 1.2 % (0-4.5); HEMATOCRIT 29.8 % (32.4-45.2); HEMOGLOBIN 9.6 GM/dL (10.7-15.3); LYMPH % 11.6 % (8-40); MCHC 32.3 g/dl (32.0-36.0); MEAN CELL VOLUME 89.9 fl (80-96); MEAN PLT VOLUME 8.8 fl (7.5-11.1); MONO % 6.5 % (3.8-10.2); NEUT % 80.2 % (42.8-82.8); PLATELET COUNT 240 K/MM3 (134-434); RBC 3.31 M/mm3 (3.60-5.2); RDW 15.1 % (11.6-15.6); WHITE BLOOD COUNT 7.8 K/mm3 (4.0-10.0)
[2019-07-10 13:41] LABS: BLOOD UREA NITROGEN 18.5 mg/dL (7-18); CALCIUM 8.1 mg/dL (8.5-10.1); POTASSIUM 3.8 mmol/L (3.5-5.1)
--- NOTE | 2019-07-10 14:33 | PN ---
Progress Note (short form) - Note Progress Note: PULMONARY Awake, not able to answer questions. NAD. No acute events overnight. Gen: NAD Heart: RRR Lung: scattered rhonchi Abd: soft, nontender Ext: + edema ASSESSMENT AND PLAN: Acute Hypoxic Respiratory Failure improved Pneumonia UTI Bacteremia Septic Shock resolving Acute Kidney Injury improving Lactic Acidosis +Troponins likely Demand Ischemia Aortic Stenosis Pulmonary HTN DM Hypothyroidism Hypercholesterolemia h/o CVA Dementia Anemia - ABX coverage - aspiration precautions - DVT/GI prophylaxis - Renal follow up Alexi ALMAGUER MD
[2019-07-10] MEDS: POTASSIUM CHLORIDE 40 MEQ in AMINO ACIDS 4.25%/D5W 1,000 ML IVPB SCH (15:36)
[2019-07-10 15:56] LABS: ANISOCYTOSIS 0; MACROCYTOSIS 0; OVALOCYTE 1+; PLATELET ESTIMATE NORMAL; TEAR DROP CELLS 1+
--- NOTE | 2019-07-10 16:31 | PN ---
Progress Note, Physician Chief Complaint: sob History of Present Illness: seen and examined at bedside. patient is more alert today, still confused but more awake. patient was started on heparin gtt for right arm DVT yesterday, today she has +FOBT, heparin gtt stopped. - Current Medication List Current Medications: Active Medications Acetaminophen (Ofirmev Injection -) 1,000 mg IVPB Q6H PRN PRN Reason: PAIN LEVEL 4 - 6 Last Admin: 07/08/19 19:08 Dose: 1,000 mg Albuterol/Ipratropium (Duoneb -) 1 amp NEB Q4H PRN PRN Reason: SHORTNESS OF BREATH Aspirin (Asa -) 81 mg PO DAILY [facility] Last Admin: 07/08/19 10:37 Dose: Not Given Atorvastatin Calcium (Lipitor -) 10 mg PO HS [facility] Last Admin: 07/09/19 21:42 Dose: 10 mg Emollient Ointment (Aquaphor -) 1 applic TP BID [facility] Piperacillin Sod/Tazobactam (Sod 2.25 gm/ Dextrose) 50 mls @ 100 mls/hr IVPB Q8H-IV SILVINO; Protocol Last Admin: 07/10/19 09:16 Dose: 100 mls/hr Potassium Chloride 40 meq/ (Amino Acids) 1,020 mls @ 65 mls/hr IVPB Q24H [facility] Last Admin: 07/09/19 16:32 Dose: 65 mls/hr Insulin Aspart (Novolog Vial Sliding Scale -) 1 vial SQ Q6H SILVINO; Protocol Last Admin: 07/10/19 11:40 Dose: 4 units Pantoprazole Sodium (Protonix Iv) 40 mg IVPUSH DAILY [facility] Last Admin: 07/10/19 09:16 Dose: 40 mg - Objective Vital Signs: Vital Signs Temperature 97.9 F 07/10/19 14:00 Pulse Rate 63 07/10/19 14:00 Respiratory Rate 20 07/10/19 14:00 Blood Pressure 154/77 07/10/19 14:00 O2 Sat by Pulse Oximetry (%) 97 07/10/19 10:00 Constitutional: Yes: Well Nourished, No Distress, Calm Cardiovascular: Yes: WNL, Regular Rate and Rhythm Respiratory: Yes: WNL, Regular, CTA Bilaterally Gastrointestinal: Yes: WNL, Normal Bowel Sounds, Soft Extremities: Yes: WNL Edema: Yes Edema: LLE: 1+, RLE: 1+ Labs: CBC, BMP 07/10/19 06:30 07/10/19 07:35 INR, PTT INR 1.65 (0.83-1.09) H 07/03/19 01:04 Problem List - Problems (1) Acute hypoxemic respiratory failure Code(s): J96.01 - ACUTE RESPIRATORY FAILURE WITH HYPOXIA (2) Demand ischemia Code(s): I24.8 - OTHER FORMS OF ACUTE ISCHEMIC HEART DISEASE (3) Hypercholesterolemia Code(s): E78.00 - PURE HYPERCHOLESTEROLEMIA, UNSPECIFIED (4) NSTEMI (non-ST elevated myocardial infarction) Code(s): I21.4 - NON-ST ELEVATION (NSTEMI) MYOCARDIAL INFARCTION (5) Respiratory failure Code(s): J96.90 - RESPIRATORY FAILURE, UNSP, UNSP W HYPOXIA OR HYPERCAPNIA (6) Septic shock Code(s): A41.9 - SEPSIS, UNSPECIFIED ORGANISM; R65.21 - SEVERE SEPSIS WITH SEPTIC SHOCK (7) JELANI (acute kidney injury) Code(s): N17.9 - ACUTE KIDNEY FAILURE, UNSPECIFIED (8) Acute urinary tract infection Code(s): N39.0 - URINARY TRACT INFECTION, SITE NOT SPECIFIED (9) Dehydration Code(s): E86.0 - DEHYDRATION (10) Dementia Code(s): F03.90 - UNSPECIFIED DEMENTIA WITHOUT BEHAVIORAL DISTURBANCE (11) Generalized weakness Code(s): R53.1 - WEAKNESS (12) Hypertension Code(s): I10 - ESSENTIAL (PRIMARY) HYPERTENSION (13) Anemia Code(s): D64.9 - ANEMIA, UNSPECIFIED (14) Diabetes Code(s): E11.9 - TYPE 2 DIABETES MELLITUS WITHOUT COMPLICATIONS Qualifiers: Diabetes mellitus complication status: without complication Assessment/Plan Microbiology 07/03/19 17:20 Sputum - Endotrachea Suction/Ventilator Gram Stain - Final 07/03/19 17:20 Sputum - Endotrachea Suction/Ventilator Sputum Culture - Final Enterobacter Aerogenes Klebsiella Pneumoniae 07/04/19 05:50 Blood - Peripheral Venous Blood Culture - Final NO GROWTH AFTER 5 DAYS INCUBATION 07/04/19 05:25 Blood - Peripheral Venous Blood Culture - Final NO GROWTH AFTER 5 DAYS INCUBATION 07/03/19 17:20 Urine - Urine [place] Legionella Antigen - Final 07/03/19 17:20 Urine - Urine [place] Streptococcus pneumoniae Antigen (M - Final 07/03/19 01:22 Blood - Peripheral Venous Blood Culture - Final NO GROWTH AFTER 5 DAYS INCUBATION 07/03/19 01:04 Blood - Peripheral Venous Blood Culture - Final Staphylococcus Epidermidis 07/03/19 02:14 Urine - Urine [place] Urine Culture - Final Enterococcus Faecalis ASSESSMENT AND PLAN: 89 year old woman with a history of HTN, hyperlipidemia, type 2 DM, anemia, TIA , dementia who presented to the ED with respiratory distress. 1. Septic shock secondary to Acute hypoxic respiratory failure secondary to pneumonia and E. faecalis UTI -Extubated 07/06/19 -c/w zosyn -blood cx neg -family meeting on goals of care, patient remains full code 2. NC Anemia -transfused 1 unit PRBCs 07/04 and 07/08 -monitor h/h -now with +FOBT 3. Right arm DVT -was started on heparin gtt yesterday -now with +FOBT -repeat cbc stable, no evidence of hemodynamic instability -no AC Acute kidney injury secondary to hypoperfusion-resolved Demand ischemia Hypernatremia-resolved Hypokalemia-resolved Hypophosphatemia-resolved Type 2 DM HTN HLD History of TIA -holding asa in light of GIB on heparin -cw current regimen
--- NOTE | 2019-07-10 19:45 | PN ---
Progress Note, Physician History of Present Illness: Pt seen and examined at bedside. She is more awake today. - Current Medication List Current Medications: Active Medications Acetaminophen (Ofirmev Injection -) 1,000 mg IVPB Q6H PRN PRN Reason: PAIN LEVEL 4 - 6 Last Admin: 07/08/19 19:08 Dose: 1,000 mg Albuterol/Ipratropium (Duoneb -) 1 amp NEB Q4H PRN PRN Reason: SHORTNESS OF BREATH Aspirin (Asa -) 81 mg PO DAILY [facility] Last Admin: 07/08/19 10:37 Dose: Not Given Atorvastatin Calcium (Lipitor -) 10 mg PO HS [facility] Last Admin: 07/09/19 21:42 Dose: 10 mg Emollient Ointment (Aquaphor -) 1 applic TP BID [facility] Piperacillin Sod/Tazobactam (Sod 2.25 gm/ Dextrose) 50 mls @ 100 mls/hr IVPB Q8H-IV [facility]; Protocol Last Admin: 07/10/19 17:42 Dose: 100 mls/hr Potassium Chloride 40 meq/ (Amino Acids) 1,020 mls @ 65 mls/hr IVPB Q24H [facility] Last Admin: 07/10/19 15:36 Dose: 65 mls/hr Insulin Aspart (Novolog Vial Sliding Scale -) 1 vial SQ Q6H [facility]; Protocol Last Admin: 07/10/19 17:38 Dose: Not Given Pantoprazole Sodium (Protonix Iv) 40 mg IVPUSH DAILY [facility] Last Admin: 07/10/19 09:16 Dose: 40 mg - Objective Vital Signs: Vital Signs Temperature 98.9 F 07/10/19 17:30 Pulse Rate 72 07/10/19 17:30 Respiratory Rate 20 07/10/19 17:30 Blood Pressure 137/74 07/10/19 17:30 O2 Sat by Pulse Oximetry (%) 97 07/10/19 10:00 Constitutional: Yes: Calm Eyes: Yes: Conjunctiva Clear HENT: Yes: Atraumatic Neck: Yes: Supple Cardiovascular: Yes: S1, S2 Respiratory: Yes: CTA Bilaterally Gastrointestinal: Yes: Soft Genitourinary: Yes: Incontinence Musculoskeletal: Yes: Muscle Weakness Edema: Yes Edema: LUE: Trace, RUE: Trace Neurological: Yes: Confusion Labs: CBC, BMP 07/10/19 06:30 07/10/19 07:35 INR, PTT INR 1.65 (0.83-1.09) H 07/03/19 01:04 Assessment/Plan Current Medications Generic Name Dose Route Start Last Admin Trade Name Stacia PRN Reason Stop Dose Admin Acetaminophen 1,000 mg 07/08/19 18:54 07/08/19 19:08 Ofirmev Injection - IVPB 1,000 mg Q6H PRN Administration PAIN LEVEL 4 - 6 Albuterol/Ipratropium 1 amp 07/07/19 20:09 Duoneb - NEB Q4H PRN SHORTNESS OF BREATH Aspirin 81 mg 07/08/19 10:00 07/08/19 10:37 Asa - PO Not Given DAILY [facility] Atorvastatin Calcium 10 mg 07/07/19 22:00 07/09/19 21:42 Lipitor - PO 10 mg HS [facility] Administration Emollient Ointment 1 applic 07/10/19 22:00 Aquaphor - TP BID [facility] Piperacillin Sod/Tazobactam 50 mls @ 100 mls/hr 07/08/19 02:00 07/10/19 17:42 Sod 2.25 gm/ Dextrose IVPB 100 mls/hr Q8H-IV [facility] Administration Protocol Potassium Chloride 40 meq/ 1,020 mls @ 65 mls/hr 07/09/19 15:45 07/10/19 15: 36 Amino Acids IVPB 65 mls/hr Q24H [facility] Administration Insulin Aspart 1 vial 07/08/19 00:30 07/10/19 17:38 Novolog Vial Sliding Scale - SQ Not Given Q6H [facility] Protocol Pantoprazole Sodium 40 mg 07/08/19 10:00 07/10/19 09:16 Protonix Iv IVPUSH 40 mg DAILY [facility] Administration 1. JELANI 2. Metabolic acidosis 3. Hypernatremia 4. Sepsis 5. Respiratory failure 6. Anemia 7. PNA 8. hypokalemia Plan - can decrease rate of clinimix - potassium improved - encourage po intake - will follow - renal function stable - avoid nephrotoxins
[2019-07-10] MEDS: MINERAL OIL/PET HY-PHL TOPICAL OINTMENT 454 GM JAR TP SCH (21:13)
[2019-07-10] MEDS: ATORVASTATIN CA 10 MG TABLET (FP) PO SCH (21:14)
[2019-07-11] MEDS: INSULIN SLIDING SCALE (NOVOLOG) 1 VIAL SQ SCH ×4 (00:06→17:51)
[2019-07-11] MEDS ORDERED: PIPERACILLIN/TAZOBACTAM 2.25 GM VIAL IVPB ONE ×3 (01:44→17:13)
[2019-07-11] MEDS ORDERED: DEXTROSE 5%-WATER - 50 ML IVPB ONE ×3 (01:45→17:14)
[2019-07-11] MEDS: PIPERACILLIN/TAZOB 2.25 GM 2.25 GM in DEXTROSE 5%-WATER - 50 ML IVPB SCH ×3 (02:06→17:45)
[2019-07-11] MEDS: POTASSIUM CHLORIDE 40 MEQ in AMINO ACIDS 4.25%/D5W 1,000 ML IVPB SCH ×3 (04:36→15:35)
[2019-07-11] MEDS ORDERED: INSULIN (NOVOLOG) ASPART 100 UNITS/ML 10ML VIAL ONE (05:52)
[2019-07-11 07:42] LABS: HEMOGLOBIN 9.2 GM/dL (10.7-15.3); MCH 29.6 pg (25.7-33.7); MCHC 33.9 g/dl (32.0-36.0); MEAN CELL VOLUME 87.4 fl (80-96); MEAN PLT VOLUME 7.8 fl (7.5-11.1); PLATELET COUNT 265 K/MM3 (134-434); RBC 3.09 M/mm3 (3.60-5.2); RDW 14.5 % (11.6-15.6); WHITE BLOOD COUNT 8.5 K/mm3 (4.0-10.0)
--- NOTE | 2019-07-11 08:08 | PN ---
Progress Note, Physician - Current Medication List Current Medications: Active Medications Acetaminophen (Ofirmev Injection -) 1,000 mg IVPB Q6H PRN PRN Reason: PAIN LEVEL 4 - 6 Last Admin: 07/08/19 19:08 Dose: 1,000 mg Albuterol/Ipratropium (Duoneb -) 1 amp NEB Q4H PRN PRN Reason: SHORTNESS OF BREATH Aspirin (Asa -) 81 mg PO DAILY [facility] Last Admin: 07/08/19 10:37 Dose: Not Given Atorvastatin Calcium (Lipitor -) 10 mg PO HS [facility] Last Admin: 07/10/19 21:14 Dose: 10 mg Emollient Ointment (Aquaphor -) 1 applic TP BID [facility] Last Admin: 07/10/19 21:13 Dose: 1 applic Piperacillin Sod/Tazobactam (Sod 2.25 gm/ Dextrose) 50 mls @ 100 mls/hr IVPB Q8H-IV [facility]; Protocol Last Admin: 07/11/19 02:06 Dose: 100 mls/hr Potassium Chloride 40 meq/ (Amino Acids) 1,020 mls @ 50 mls/hr IVPB Q20H [facility] Last Admin: 07/11/19 07:10 Dose: Not Given Insulin Aspart (Novolog Vial Sliding Scale -) 1 vial SQ Q6H [facility]; Protocol Last Admin: 07/11/19 06:59 Dose: 2 units Pantoprazole Sodium (Protonix Iv) 40 mg IVPUSH DAILY [facility] Last Admin: 07/10/19 09:16 Dose: 40 mg - Objective Vital Signs: Vital Signs Temperature 98.0 F 07/11/19 06:00 Pulse Rate 78 07/11/19 06:00 Respiratory Rate 07/11/19 06:00 Blood Pressure 142/76 07/11/19 06:00 O2 Sat by Pulse Oximetry (%) 96 07/10/19 22:00 Eyes: Yes: WNL, Conjunctiva Clear, EOM Intact HENT: Yes: WNL, Atraumatic, Normocephalic Neck: Yes: WNL, Supple, Trachea Midline Cardiovascular: Yes: Regular Rate and Rhythm Respiratory: Yes: WNL, Regular, CTA Bilaterally Gastrointestinal: Yes: WNL, Normal Bowel Sounds Genitourinary: Yes: WNL Musculoskeletal: Yes: WNL Extremities: Yes: WNL Edema: No Integumentary: Yes: WNL Neurological: Yes: WNL, Alert, Oriented ...Motor Strength: WNL Psychiatric: Yes: WNL Labs: CBC, BMP 07/10/19 07:35 INR, PTT INR 1.65 (0.83-1.09) H 07/03/19 01:04 Assessment/Plan 07/05/2019 Echocardiography reviewed. Moderate , pleural effusion, moderate TR 1. Acute hypoxemic respiratory failure improving 2. Post septic shock LLL pneumonia, urosepsis, bacteremia 3. Hypercholesterolemia 4. Hypothyoidism 5. NIDDM 6. Cerebrovascular disease, h/o TIA 7. Worsening of dementia vs delirium, with component of critical illness encephalopathy as well 8. Anemia 9. Demand ischemia 10. JELANI due to septic shock improving 11. Moderate 12. Moderate TR 13. Diastolic dysfunction with pleural effusion 14. RUE brachial DVT PLAN: 1. BD, O2 as needed, aspiration precautions 2. Complete antibiotic coverage per C&S 3. Heparin gtt->Eliquis 2.5 bid 4. Troponin downtrending, monitor Hgb and transfuse as needed 5. IV diuresis as needed with monitor diuretic response, renal fxn and electrolytes 6. Restart Metoprolol 25 qd and Quinapril 40 qd as BP tolerates once taking oral intake 7. PT as tolerated coverage for dr. Bermudez
[2019-07-11 08:47] LABS: BLOOD UREA NITROGEN 23.2 mg/dL (7-18); CALCIUM 7.6 mg/dL (8.5-10.1); CREATININE 0.9 mg/dL (0.55-1.3); POTASSIUM 4.3 mmol/L (3.5-5.1)
[2019-07-11] MEDS ORDERED: PT OWN MED DRAWER 7, Y5N ONE (10:47)
[2019-07-11] MEDS: PANTOPRAZOLE SODIUM 40 MG VIAL IVPUSH SCH (10:52)
[2019-07-11] MEDS: MINERAL OIL/PET HY-PHL TOPICAL OINTMENT 454 GM JAR TP SCH ×2 (10:52→22:04)
--- NOTE | 2019-07-11 12:31 | PN ---
Progress Note (short form) - Note Progress Note: PULMONARY Awake NAD. No acute events overnight. Gen: NAD Heart: RRR Lung: scattered rhonchi Abd: soft, nontender Ext: + edema ASSESSMENT AND PLAN: Acute Hypoxic Respiratory Failure improved Pneumonia UTI Bacteremia Septic Shock resolving Acute Kidney Injury improving Lactic Acidosis +Troponins likely Demand Ischemia Aortic Stenosis Pulmonary HTN DM Hypothyroidism Hypercholesterolemia h/o CVA Dementia Anemia - ABX coverage - aspiration precautions - DVT/GI prophylaxis - Renal follow up Alexi ALMAGUER MD
--- NOTE | 2019-07-11 16:14 | PN ---
Progress Note, Physician Chief Complaint: sob History of Present Illness: seen and examined at beside, no further melena. More somnolent today - Current Medication List Current Medications: Active Medications Acetaminophen (Ofirmev Injection -) 1,000 mg IVPB Q6H PRN PRN Reason: PAIN LEVEL 4 - 6 Last Admin: 07/08/19 19:08 Dose: 1,000 mg Albuterol/Ipratropium (Duoneb -) 1 amp NEB Q4H PRN PRN Reason: SHORTNESS OF BREATH Aspirin (Asa -) 81 mg PO DAILY [facility] Last Admin: 07/08/19 10:37 Dose: Not Given Atorvastatin Calcium (Lipitor -) 10 mg PO HS [facility] Last Admin: 07/10/19 21:14 Dose: 10 mg Emollient Ointment (Aquaphor -) 1 applic TP BID [facility] Last Admin: 07/11/19 10:52 Dose: 1 applic Piperacillin Sod/Tazobactam (Sod 2.25 gm/ Dextrose) 50 mls @ 100 mls/hr IVPB Q8H-IV [facility]; Protocol Last Admin: 07/11/19 10:52 Dose: 100 mls/hr Potassium Chloride 40 meq/ (Amino Acids) 1,020 mls @ 50 mls/hr IVPB Q20H [facility] Last Admin: 07/11/19 15:35 Dose: Not Given Insulin Aspart (Novolog Vial Sliding Scale -) 1 vial SQ Q6H [facility]; Protocol Last Admin: 07/11/19 13:27 Dose: 4 units Pantoprazole Sodium (Protonix Iv) 40 mg IVPUSH DAILY [facility] Last Admin: 07/11/19 10:52 Dose: 40 mg - Objective Vital Signs: Vital Signs Temperature 99.5 F 07/11/19 14:00 Pulse Rate 84 07/11/19 14:00 Respiratory Rate 07/11/19 14:00 Blood Pressure 139/71 07/11/19 14:00 O2 Sat by Pulse Oximetry (%) 98 07/11/19 10:00 Constitutional: Yes: No Distress, Other (lethargic) Cardiovascular: Yes: WNL, Regular Rate and Rhythm Respiratory: Yes: WNL, Regular, CTA Bilaterally. No: Cough Gastrointestinal: Yes: WNL, Normal Bowel Sounds, Soft Extremities: Yes: Other (heel foam pads, bilateral upper extrmities edematous, ecchymotic) Edema: No Labs: CBC, BMP 07/11/19 05:48 07/11/19 06:00 INR, PTT INR 1.65 (0.83-1.09) H 07/03/19 01:04 Problem List - Problems (1) Acute hypoxemic respiratory failure Code(s): J96.01 - ACUTE RESPIRATORY FAILURE WITH HYPOXIA (2) Demand ischemia Code(s): I24.8 - OTHER FORMS OF ACUTE ISCHEMIC HEART DISEASE (3) Hypercholesterolemia Code(s): E78.00 - PURE HYPERCHOLESTEROLEMIA, UNSPECIFIED (4) NSTEMI (non-ST elevated myocardial infarction) Code(s): I21.4 - NON-ST ELEVATION (NSTEMI) MYOCARDIAL INFARCTION (5) Respiratory failure Code(s): J96.90 - RESPIRATORY FAILURE, UNSP, UNSP W HYPOXIA OR HYPERCAPNIA (6) Septic shock Code(s): A41.9 - SEPSIS, UNSPECIFIED ORGANISM; R65.21 - SEVERE SEPSIS WITH SEPTIC SHOCK (7) JELANI (acute kidney injury) Code(s): N17.9 - ACUTE KIDNEY FAILURE, UNSPECIFIED (8) Acute urinary tract infection Code(s): N39.0 - URINARY TRACT INFECTION, SITE NOT SPECIFIED (9) Dehydration Code(s): E86.0 - DEHYDRATION (10) Dementia Code(s): F03.90 - UNSPECIFIED DEMENTIA WITHOUT BEHAVIORAL DISTURBANCE (11) Generalized weakness Code(s): R53.1 - WEAKNESS (12) Hypertension Code(s): I10 - ESSENTIAL (PRIMARY) HYPERTENSION (13) Anemia Code(s): D64.9 - ANEMIA, UNSPECIFIED (14) Diabetes Code(s): E11.9 - TYPE 2 DIABETES MELLITUS WITHOUT COMPLICATIONS Qualifiers: Diabetes mellitus complication status: without complication Assessment/Plan 89 year old woman with a history of HTN, hyperlipidemia, type 2 DM, anemia, TIA , dementia who presented to the ED with respiratory distress. 1. Septic shock secondary to Acute hypoxic respiratory failure secondary to pneumonia and E. faecalis UTI -extubated 07/06/19 -c/w zosyn-day 4 -blood cx neg -need another family meeting with son, HCP, patient has right arm DVT on hep, now with GIB, hep stopped -remains full code -lost IV access, edematous, attempt got IV access in foot -ID eval 2. NC Anemia -transfused 1 unit PRBCs 07/04 and 07/08 -monitor h/h -now with +FOBT after being placed on hep for right arm DVT -hep stopped for 2 days now 3. Right arm DVT -was started on heparin gtt 07/09/19 -+FOBT -repeat cbc stable, no evidence of hemodynamic instability -no heparin at this time Acute kidney injury secondary to hypoperfusion-resolved Demand ischemia Hypernatremia-resolved Hypokalemia-resolved Hypophosphatemia-resolved Type 2 DM HTN HLD History of TIA -holding asa in light of GIB on heparin -cw current regimen
--- NOTE | 2019-07-11 19:18 | PN ---
Progress Note, Physician History of Present Illness: Pt seen and examined at bedside. She appears comfortable. - Current Medication List Current Medications: Active Medications Acetaminophen (Ofirmev Injection -) 1,000 mg IVPB Q6H PRN PRN Reason: PAIN LEVEL 4 - 6 Last Admin: 07/08/19 19:08 Dose: 1,000 mg Albuterol/Ipratropium (Duoneb -) 1 amp NEB Q4H PRN PRN Reason: SHORTNESS OF BREATH Last Admin: 07/11/19 16:40 Dose: 1 amp Aspirin (Asa -) 81 mg PO DAILY [facility] Last Admin: 07/08/19 10:37 Dose: Not Given Atorvastatin Calcium (Lipitor -) 10 mg PO HS [facility] Last Admin: 07/10/19 21:14 Dose: 10 mg Emollient Ointment (Aquaphor -) 1 applic TP BID [facility] Last Admin: 07/11/19 10:52 Dose: 1 applic Piperacillin Sod/Tazobactam (Sod 2.25 gm/ Dextrose) 50 mls @ 100 mls/hr IVPB Q8H-IV [facility]; Protocol Last Admin: 07/11/19 17:45 Dose: 100 mls/hr Potassium Chloride 40 meq/ (Amino Acids) 1,020 mls @ 50 mls/hr IVPB Q20H [facility] Last Admin: 07/11/19 15:35 Dose: Not Given Insulin Aspart (Novolog Vial Sliding Scale -) 1 vial SQ Q6H [facility]; Protocol Last Admin: 07/11/19 17:51 Dose: 2 units Pantoprazole Sodium (Protonix Iv) 40 mg IVPUSH DAILY [facility] Last Admin: 07/11/19 10:52 Dose: 40 mg - Objective Vital Signs: Vital Signs Temperature 99 F 07/11/19 16:56 Pulse Rate 76 07/11/19 16:56 Respiratory Rate 20 07/11/19 16:56 Blood Pressure 144/68 07/11/19 16:56 O2 Sat by Pulse Oximetry (%) 98 07/11/19 10:00 Constitutional: Yes: Calm Eyes: Yes: Conjunctiva Clear HENT: Yes: Atraumatic Neck: Yes: Supple Cardiovascular: Yes: S1, S2 Respiratory: Yes: CTA Bilaterally, On Nasal O2 Gastrointestinal: Yes: Soft Genitourinary: Yes: Incontinence Musculoskeletal: Yes: Muscle Weakness Integumentary: Yes: Bruising Neurological: Yes: Confusion Labs: CBC, BMP 07/11/19 05:48 07/11/19 06:00 INR, PTT INR 1.65 (0.83-1.09) H 07/03/19 01:04 Assessment/Plan Current Medications Generic Name Dose Route Start Last Admin Trade Name Freq PRN Reason Stop Dose Admin Acetaminophen 1,000 mg 07/08/19 18:54 07/08/19 19:08 Ofirmev Injection - IVPB 1,000 mg Q6H PRN Administration PAIN LEVEL 4 - 6 Albuterol/Ipratropium 1 amp 07/07/19 20:09 07/11/19 16:40 Duoneb - NEB 1 amp Q4H PRN Administration SHORTNESS OF BREATH Aspirin 81 mg 07/08/19 10:00 07/08/19 10:37 Asa - PO Not Given DAILY [facility] Atorvastatin Calcium 10 mg 07/07/19 22:00 07/10/19 21:14 Lipitor - PO 10 mg HS [facility] Administration Emollient Ointment 1 applic 07/10/19 22:00 07/11/19 10:52 Aquaphor - TP 1 applic BID [facility] Administration Piperacillin Sod/Tazobactam 50 mls @ 100 mls/hr 07/08/19 02:00 07/11/19 17:45 Sod 2.25 gm/ Dextrose IVPB 100 mls/hr Q8H-IV [facility] Administration Protocol Potassium Chloride 40 meq/ 1,020 mls @ 50 mls/hr 07/10/19 19:45 07/11/19 15: 35 Amino Acids IVPB Not Given Q20H [facility] Insulin Aspart 1 vial 07/08/19 00:30 07/11/19 17:51 Novolog Vial Sliding Scale - SQ 2 units Q6H [facility] Administration Protocol Pantoprazole Sodium 40 mg 07/08/19 10:00 07/11/19 10:52 Protonix Iv IVPUSH 40 mg DAILY [facility] Administration 1. JELANI 2. Metabolic acidosis 3. Hypernatremia 4. Sepsis 5. Respiratory failure 6. Anemia 7. PNA 8. hypokalemia Plan - will stop clinimix for now - repeat labs in am - sodium is dropping - encourage po intake - renal function stable - avoid nephrotoxins
[2019-07-11] MEDS: ATORVASTATIN CA 10 MG TABLET (FP) PO SCH (22:04)
[2019-07-12] MEDS: INSULIN SLIDING SCALE (NOVOLOG) 1 VIAL SQ SCH ×5 (02:02→23:56)
[2019-07-12] MEDS ORDERED: PIPERACILLIN/TAZOBACTAM 2.25 GM VIAL IVPB ONE ×3 (02:05→17:16)
[2019-07-12] MEDS ORDERED: DEXTROSE 5%-WATER - 50 ML IVPB ONE ×3 (02:05→17:17)
[2019-07-12] MEDS: PIPERACILLIN/TAZOB 2.25 GM 2.25 GM in DEXTROSE 5%-WATER - 50 ML IVPB SCH ×3 (02:22→17:23)
[2019-07-12 03:38] LABS: PLATELET ESTIMATE NORMAL
[2019-07-12 08:27] LABS: HEMATOCRIT 26.7 % (32.4-45.2); HEMOGLOBIN 9.1 GM/dL (10.7-15.3); MCH 30.1 pg (25.7-33.7); MCHC 34.2 g/dl (32.0-36.0); MEAN PLT VOLUME 7.5 fl (7.5-11.1); PLATELET COUNT 320 K/MM3 (134-434); RBC 3.04 M/mm3 (3.60-5.2); RDW 14.6 % (11.6-15.6); WHITE BLOOD COUNT 8.5 K/mm3 (4.0-10.0)
--- NOTE | 2019-07-12 09:05 | PN ---
Progress Note, Physician History of Present Illness: Lethargic afebrile, not taking oral intake yet. Heparin gtt dced due to anemia and +FOBT. - Current Medication List Current Medications: Active Medications Acetaminophen (Ofirmev Injection -) 1,000 mg IVPB Q6H PRN PRN Reason: PAIN LEVEL 4 - 6 Last Admin: 07/08/19 19:08 Dose: 1,000 mg Albuterol/Ipratropium (Duoneb -) 1 amp NEB Q4H PRN PRN Reason: SHORTNESS OF BREATH Last Admin: 07/11/19 16:40 Dose: 1 amp Aspirin (Asa -) 81 mg PO DAILY [facility] Last Admin: 07/08/19 10:37 Dose: Not Given Atorvastatin Calcium (Lipitor -) 10 mg PO HS [facility] Last Admin: 07/11/19 22:04 Dose: 10 mg Emollient Ointment (Aquaphor -) 1 applic TP BID [facility] Last Admin: 07/11/19 22:04 Dose: 1 applic Piperacillin Sod/Tazobactam (Sod 2.25 gm/ Dextrose) 50 mls @ 100 mls/hr IVPB Q8H-IV [facility]; Protocol Last Admin: 07/12/19 02:22 Dose: 100 mls/hr Insulin Aspart (Novolog Vial Sliding Scale -) 1 vial SQ Q6H [facility]; Protocol Last Admin: 07/12/19 02:02 Dose: Not Given Pantoprazole Sodium (Protonix Iv) 40 mg IVPUSH DAILY [facility] Last Admin: 07/11/19 10:52 Dose: 40 mg - Objective Vital Signs: Vital Signs Temperature 98.4 F 07/12/19 06:50 Pulse Rate 92 H 07/12/19 06:50 Respiratory Rate 15 07/12/19 06:50 Blood Pressure 147/91 07/12/19 06:50 O2 Sat by Pulse Oximetry (%) 96 07/11/19 22:00 Constitutional: Yes: No Distress, Calm Neck: Yes: Supple Cardiovascular: Yes: Regular Rate and Rhythm Respiratory: Yes: Regular, Diminished Gastrointestinal: Yes: Soft, Hypoactive Bowel Sounds Edema: No Labs: CBC, BMP 07/12/19 07:10 INR, PTT INR 1.65 (0.83-1.09) H 07/03/19 01:04 Problem List - Problems (1) Septic shock Code(s): A41.9 - SEPSIS, UNSPECIFIED ORGANISM; R65.21 - SEVERE SEPSIS WITH SEPTIC SHOCK (2) Acute hypoxemic respiratory failure Code(s): J96.01 - ACUTE RESPIRATORY FAILURE WITH HYPOXIA (3) Demand ischemia Code(s): I24.8 - OTHER FORMS OF ACUTE ISCHEMIC HEART DISEASE (4) Hypercholesterolemia Code(s): E78.00 - PURE HYPERCHOLESTEROLEMIA, UNSPECIFIED (5) UTI (urinary tract infection) Code(s): N39.0 - URINARY TRACT INFECTION, SITE NOT SPECIFIED Qualifiers: Urinary tract infection type: site unspecified (6) JELANI (acute kidney injury) Code(s): N17.9 - ACUTE KIDNEY FAILURE, UNSPECIFIED Assessment/Plan 07/05/2019 Echocardiography reviewed. Moderate , pleural effusion, moderate TR 1. Acute hypoxemic respiratory failure improving 2. Post septic shock LLL pneumonia, urosepsis, bacteremia 3. Hypercholesterolemia 4. Hypothyoidism 5. NIDDM 6. Cerebrovascular disease, h/o TIA 7. Worsening of dementia vs delirium, with component of critical illness encephalopathy as well 8. Anemia 9. Demand ischemia 10. JELANI due to septic shock improving 11. Moderate 12. Moderate TR 13. Diastolic dysfunction with pleural effusion 14. RUE brachial DVT 15. Anemia with +FOBT PLAN: 1. BD, O2 as needed, aspiration precautions 2. Complete antibiotic coverage per C&S 3. Heparin gtt d/zach, resume sc Lovenox 4. Troponin downtrending, monitor Hgb and transfuse as needed 5. IV diuresis as needed with monitor diuretic response, renal fxn and electrolytes 6. Restart Metoprolol 25 qd and Quinapril 40 qd as BP tolerates once taking oral intake 7. PT as tolerated
[2019-07-12 09:56] LABS: ALBUMIN 2.2 g/dl (3.4-5.0); BILIRUBIN,TOTAL 0.5 mg/dL (0.2-1); BLOOD UREA NITROGEN 22.4 mg/dL (7-18); CALCIUM 8.2 mg/dL (8.5-10.1); POTASSIUM 4.6 mmol/L (3.5-5.1); TOT PROT 5.8 g/dl (6.4-8.2)
--- NOTE | 2019-07-12 10:10 | PN ---
Progress Note (short form) - Note Progress Note: HPI 89 year old female history of dementia, HTN, HLD, hypothyroidism, anemia, TIA, and NIDDM came to hospital for respiratory failure, septicemia and she was intubated and extubated. She remains to confused and non verbal. Patient has not had any ct head. She has history of dementia and resident of [place]. Patient is not in any distress. I spoke to nursing staff. She is afebrile and no acut edistress. Patient is more attentive today NEUROLOGICAL EXAMIANTION Alert ,oriented x 0, aphasic , not able to communicate eomi, pupils reactive no face asymmetry withdraws extremity to pain ct head no acute findings, and no interval change Assessment/Plan 89 year old female history of dementia, HTN, HLD, hypothyroidism, anemia, TIA, and NIDDM came to hospital for pneumonia, and septicemia. She was in icu , inutbated and extubated. Now has worse mental status than before. Unlikely to be meningitis. Worsening of dementia vs delirium Suspect component of critical illness encephalopathy as well. Plan: continue pt, supportive care - ct head reviewed, no acute findings - she has improved slightly, continue current level of care Thanking you so much David Paris MD
--- NOTE | 2019-07-12 10:16 | PN ---
Progress Note (short form) - Note Progress Note: PULMONARY Pt arousable, nonverbal. No fevers recorded. Vital Signs Period Temp Pulse Resp BP Sys/T[place] Pulse Ox Last 24 Hr 98.3 F-99.5 F 76-92 15-20 139-148/68-91 96-96 Gen: NAD at rest Heart: RRR Lung: decreased breath sounds at the bases Abd: soft, nontender Ext: no edema CBC, BMP 07/12/19 07:10 07/12/19 07:10 Active Medications Acetaminophen (Ofirmev Injection -) 1,000 mg IVPB Q6H PRN PRN Reason: PAIN LEVEL 4 - 6 Last Admin: 07/08/19 19:08 Dose: 1,000 mg Albuterol/Ipratropium (Duoneb -) 1 amp NEB Q4H PRN PRN Reason: SHORTNESS OF BREATH Last Admin: 07/11/19 16:40 Dose: 1 amp Aspirin (Asa -) 81 mg PO DAILY [facility] Last Admin: 07/08/19 10:37 Dose: Not Given Atorvastatin Calcium (Lipitor -) 10 mg PO HS [facility] Last Admin: 07/11/19 22:04 Dose: 10 mg Emollient Ointment (Aquaphor -) 1 applic TP BID [facility] Last Admin: 07/11/19 22:04 Dose: 1 applic Piperacillin Sod/Tazobactam (Sod 2.25 gm/ Dextrose) 50 mls @ 100 mls/hr IVPB Q8H-IV [facility]; Protocol Last Admin: 07/12/19 02:22 Dose: 100 mls/hr Insulin Aspart (Novolog Vial Sliding Scale -) 1 vial SQ Q6H [facility]; Protocol Last Admin: 07/12/19 02:02 Dose: Not Given Pantoprazole Sodium (Protonix Iv) 40 mg IVPUSH DAILY [facility] Last Admin: 07/11/19 10:52 Dose: 40 mg A/P Acute Hypoxic Respiratory Failure improving Pneumonia UTI Bacteremia Septic Shock resolving Acute Kidney Injury improving Lactic Acidosis +Troponins likely Demand Ischemia Aortic Stenosis Pulmonary HTN DM Hypothyroidism Hypercholesterolemia h/o CVA Dementia Anemia - continue antibiotics - inhaled bronchodilators - monitor urine output, creatinine - aspiration precautions - DVT/GI prophylaxis
[2019-07-12] MEDS ORDERED: PT OWN MED DRAWER 7, Y5N ONE (10:20)
[2019-07-12] MEDS: ASPIRIN 81 MG CHEWABLE TABLETS PO SCH (10:31)
[2019-07-12] MEDS: PANTOPRAZOLE SODIUM 40 MG VIAL IVPUSH SCH (10:33)
[2019-07-12] MEDS ORDERED: ENOXAPARIN NA (PORCINE) 40 MG/0.4 ML DISP.SYRIN SQ SCH (11:30)
[2019-07-12] MEDS: MINERAL OIL/PET HY-PHL TOPICAL OINTMENT 454 GM JAR TP SCH ×2 (12:07→21:24)
--- NOTE | 2019-07-12 14:46 | PN ---
Progress Note, Physician History of Present Illness: Pt seen and examined at bedside. She appears comfortable. - Current Medication List Current Medications: Active Medications Acetaminophen (Ofirmev Injection -) 1,000 mg IVPB Q6H PRN PRN Reason: PAIN LEVEL 4 - 6 Last Admin: 07/08/19 19:08 Dose: 1,000 mg Albuterol/Ipratropium (Duoneb -) 1 amp NEB Q4H PRN PRN Reason: SHORTNESS OF BREATH Last Admin: 07/11/19 16:40 Dose: 1 amp Aspirin (Asa -) 81 mg PO DAILY [facility] Last Admin: 07/12/19 10:31 Dose: 81 mg Atorvastatin Calcium (Lipitor -) 10 mg PO HS [facility] Last Admin: 07/11/19 22:04 Dose: 10 mg Emollient Ointment (Aquaphor -) 1 applic TP BID [facility] Last Admin: 07/12/19 12:07 Dose: 1 applic Enoxaparin Sodium (Lovenox -) 40 mg SQ DAILY [facility] Last Admin: 07/12/19 12:06 Dose: 40 mg Piperacillin Sod/Tazobactam (Sod 2.25 gm/ Dextrose) 50 mls @ 100 mls/hr IVPB Q8H-IV [facility]; Protocol Last Admin: 07/12/19 10:31 Dose: 100 mls/hr Insulin Aspart (Novolog Vial Sliding Scale -) 1 vial SQ Q6H [facility]; Protocol Last Admin: 07/12/19 12:06 Dose: 2 units Pantoprazole Sodium (Protonix Iv) 40 mg IVPUSH DAILY [facility] Last Admin: 07/12/19 10:33 Dose: 40 mg - Objective Vital Signs: Vital Signs Temperature 98.8 F 07/12/19 09:25 Pulse Rate 77 07/12/19 09:25 Respiratory Rate 20 07/12/19 09:25 Blood Pressure 164/74 07/12/19 09:25 O2 Sat by Pulse Oximetry (%) 96 07/12/19 10:00 Constitutional: Yes: Calm Eyes: Yes: Conjunctiva Clear HENT: Yes: Atraumatic Neck: Yes: Supple Cardiovascular: Yes: S1, S2 Respiratory: Yes: CTA Bilaterally Gastrointestinal: Yes: Normal Bowel Sounds, Soft Genitourinary: Yes: WNL Musculoskeletal: Yes: Muscle Weakness Edema: LUE: Trace, RUE: Trace Neurological: Yes: Lethargy Labs: CBC, BMP 07/12/19 07:10 07/12/19 07:10 INR, PTT INR 1.65 (0.83-1.09) H 07/03/19 01:04 Assessment/Plan Current Medications Generic Name Dose Route Start Last Admin Trade Name Freq PRN Reason Stop Dose Admin Acetaminophen 1,000 mg 07/08/19 18:54 07/08/19 19:08 Ofirmev Injection - IVPB 1,000 mg Q6H PRN Administration PAIN LEVEL 4 - 6 Albuterol/Ipratropium 1 amp 07/07/19 20:09 07/11/19 16:40 Duoneb - NEB 1 amp Q4H PRN Administration SHORTNESS OF BREATH Aspirin 81 mg 07/08/19 10:00 07/12/19 10:31 Asa - PO 81 mg DAILY [facility] Administration Atorvastatin Calcium 10 mg 07/07/19 22:00 07/11/19 22:04 Lipitor - PO 10 mg HS [facility] Administration Emollient Ointment 1 applic 07/10/19 22:00 07/12/19 12:07 Aquaphor - TP 1 applic BID [facility] Administration Enoxaparin Sodium 40 mg 07/12/19 11:30 07/12/19 12:06 Lovenox - SQ 40 mg DAILY [facility] Administration Piperacillin Sod/Tazobactam 50 mls @ 100 mls/hr 07/08/19 02:00 07/12/19 10:31 Sod 2.25 gm/ Dextrose IVPB 100 mls/hr Q8H-IV [facility] Administration Protocol Insulin Aspart 1 vial 07/08/19 00:30 07/12/19 12:06 Novolog Vial Sliding Scale - SQ 2 units Q6H [facility] Administration Protocol Pantoprazole Sodium 40 mg 07/08/19 10:00 07/12/19 10:33 Protonix Iv IVPUSH 40 mg DAILY [facility] Administration 1. JELANI 2. Metabolic acidosis 3. Hypernatremia 4. Sepsis 5. Respiratory failure 6. Anemia 7. PNA 8. hypokalemia Plan - encourage po intake - hold clinimix for now - repeat labs in am - bun improving - renal function stable - avoid nephrotoxins
--- NOTE | 2019-07-12 16:03 | PN ---
Physical Exam: SUBJECTIVE: Patient seen and examined. She is awake and alert and appears comfortable. Son is at the bedside and is concerned about using anticoagulation for DVT because she was found to have blood in her stool. OBJECTIVE: Vital Signs Period Temp Pulse Resp BP Sys/Tolentino Pulse Ox Last 24 Hr 98.3 F-99.6 F 76-92 15-20 141-164/68-91 96-96 GENERAL: The patient is awake, alert, in no acute distress. LUNGS: Breath sounds equal, clear to auscultation bilaterally, no wheezes, no crackles, no accessory muscle use. HEART: Regular rate and rhythm, S1, S2 without murmur, rub or gallop. ABDOMEN: Soft, nontender, nondistended, normoactive bowel sounds, no guarding, no rebound, no hepatosplenomegaly, no masses. EXTREMITIES: 2+ pulses, warm, well-perfused, no edema. Laboratory Results - last 24 hr 07/11/19 07/11/19 07/11/19 05:48 13:25 17:47 WBC RBC Hgb Hct MCV MCH MCHC RDW Plt Count MPV Platelet Estimate Normal Platelet Comment Present PTT (Actin FS) Sodium Potassium Chloride Carbon Dioxide Anion Gap BUN Creatinine Est GFR (CKD-EPI)AfAm Est GFR (CKD-EPI)NonAf POC Glucometer 207 189 Random Glucose Calcium Total Bilirubin AST ALT Alkaline Phosphatase Total Protein Albumin Blood Type Antibody Screen 07/11/19 07/11/19 07/12/19 18:45 22:29 02:01 WBC RBC Hgb Hct MCV MCH MCHC RDW Plt Count MPV Platelet Estimate Platelet Comment PTT (Actin FS) Sodium Potassium Chloride Carbon Dioxide Anion Gap BUN Creatinine Est GFR (CKD-EPI)AfAm Est GFR (CKD-EPI)NonAf POC Glucometer 180 144 Random Glucose Calcium Total Bilirubin AST ALT Alkaline Phosphatase Total Protein Albumin Blood Type A POSITIVE Antibody Screen Negative 07/12/19 07/12/19 07/12/19 07:10 07:10 07:10 WBC 8.5 RBC 3.04 L Hgb 9.1 L Hct 26.7 L MCV 88.0 MCH 30.1 MCHC 34.2 RDW 14.6 Plt Count 320 D MPV 7.5 Platelet Estimate Platelet Comment PTT (Actin FS) 33.7 Sodium 134 L Potassium 4.6 Chloride 103 Carbon Dioxide 25 Anion Gap 6 L BUN 22.4 H Creatinine 1.0 Est GFR (CKD-EPI)AfAm 57.84 Est GFR (CKD-EPI)NonAf 49.91 POC Glucometer Random Glucose 114 H Calcium 8.2 L Total Bilirubin 0.5 AST 44 H ALT 43 Alkaline Phosphatase 230 H Total Protein 5.8 L Albumin 2.2 L Blood Type Antibody Screen 07/12/19 11:46 WBC RBC Hgb Hct MCV MCH MCHC RDW Plt Count MPV Platelet Estimate Platelet Comment PTT (Actin FS) Sodium Potassium Chloride Carbon Dioxide Anion Gap BUN Creatinine Est GFR (CKD-EPI)AfAm Est GFR (CKD-EPI)NonAf POC Glucometer 173 Random Glucose Calcium Total Bilirubin AST ALT Alkaline Phosphatase Total Protein Albumin Blood Type Antibody Screen Active Medications Generic Name Dose Route Start Last Admin Trade Name Freq PRN Reason Stop Dose Admin Acetaminophen 1,000 mg 07/08/19 18:54 07/08/19 19:08 Ofirmev Injection - IVPB 1,000 mg Q6H PRN Administration PAIN LEVEL 4 - 6 Albuterol/Ipratropium 1 amp 07/07/19 20:09 07/11/19 16:40 Duoneb - NEB 1 amp Q4H PRN Administration SHORTNESS OF BREATH Aspirin 81 mg 07/08/19 10:00 07/12/19 10:31 Asa - PO 81 mg DAILY [facility] Administration Atorvastatin Calcium 10 mg 07/07/19 22:00 07/11/19 22:04 Lipitor - PO 10 mg HS [facility] Administration Emollient Ointment 1 applic 07/10/19 22:00 07/12/19 12:07 Aquaphor - TP 1 applic BID [facility] Administration Enoxaparin Sodium 40 mg 07/12/19 11:30 07/12/19 12:06 Lovenox - SQ 40 mg DAILY [facility] Administration Piperacillin Sod/Tazobactam 50 mls @ 100 mls/hr 07/08/19 02:00 07/12/19 10:31 Sod 2.25 gm/ Dextrose IVPB 100 mls/hr Q8H-IV [facility] Administration Protocol Insulin Aspart 1 vial 07/08/19 00:30 07/12/19 12:06 Novolog Vial Sliding Scale - SQ 2 units Q6H [facility] Administration Protocol Pantoprazole Sodium 40 mg 07/08/19 10:00 07/12/19 10:33 Protonix Iv IVPUSH 40 mg DAILY [facility] Administration ASSESSMENT/PLAN: This is an 89 year old woman with a history of HTN, hyperlipidemia, type 2 DM, anemia, TIA, dementia who presented to the ED with respiratory distress. 1. RUE DVT - Anticoagulation held secondary to occult blood in stool 2. Occult blood in stool - Therapeutic dose Lovenox for DVT discontinued - Hold aspirin, prophylactic dose Lovenox - GI consult 3. Acute hypoxic respiratory failure secondary to pneumonia - Resolved - Extubated 07/06 4. Septic shock secondary to pneumonia, E. faecalis UTI - Shock resolved - Continue Zosyn 5. Acute kidney injury secondary to hypoperfusion - Resolved 6. Demand ischemia 7. Hypernatremia/hyponatremia - Improved 8. Hypokalemia - Improved 9. Hypophosphatemia - Resolved 10. Type 2 DM - Metformin held - Continue Novolog sliding scale 11. HTN - Accupril, Toprol XL have been held secondary to septic shock 12. Hyperlipidemia - Continue Lipitor 13. Anemia - Transfused 2 units PRBCs this admission - Hgb stable 14. History of TIA - Continue aspirin, Lipitor Visit type - Emergency Visit Emergency Visit: Yes ED Registration Date: 07/03/19 Care time: The patient presented to the Emergency Department on the above date and was hospitalized for further evaluation of their emergent condition. - New Patient This patient is new to me today: No - Critical Care Critical Care patient: No - Discharge Referral Referred to [facility] Med P.C.: No
[2019-07-12 16:34] LABS: ANISOCYTOSIS 1+; MACROCYTOSIS 0; OVALOCYTE 1+; PLATELET ESTIMATE NORMAL
--- NOTE | 2019-07-12 20:17 | PN ---
Progress Note, Physician History of Present Illness: AWAKE, LETHRGIC SON IN ATTENDANCE AFEBRILE BREATHING NON-LABORED - Current Medication List Current Medications: Active Medications Acetaminophen (Ofirmev Injection -) 1,000 mg IVPB Q6H PRN PRN Reason: PAIN LEVEL 4 - 6 Last Admin: 07/08/19 19:08 Dose: 1,000 mg Albuterol/Ipratropium (Duoneb -) 1 amp NEB Q4H PRN PRN Reason: SHORTNESS OF BREATH Last Admin: 07/11/19 16:40 Dose: 1 amp Atorvastatin Calcium (Lipitor -) 10 mg PO HS [facility] Last Admin: 07/11/19 22:04 Dose: 10 mg Emollient Ointment (Aquaphor -) 1 applic TP BID [facility] Last Admin: 07/12/19 12:07 Dose: 1 applic Piperacillin Sod/Tazobactam (Sod 2.25 gm/ Dextrose) 50 mls @ 100 mls/hr IVPB Q8H-IV [facility]; Protocol Last Admin: 07/12/19 17:23 Dose: 100 mls/hr Insulin Aspart (Novolog Vial Sliding Scale -) 1 vial SQ Q6H [facility]; Protocol Last Admin: 07/12/19 19:45 Dose: Not Given Pantoprazole Sodium (Protonix Iv) 40 mg IVPUSH DAILY [facility] Last Admin: 07/12/19 10:33 Dose: 40 mg - Objective Vital Signs: Vital Signs Temperature 98.8 F 07/12/19 19:35 Pulse Rate 93 H 07/12/19 19:35 Respiratory Rate 20 07/12/19 19:35 Blood Pressure 160/78 07/12/19 19:35 O2 Sat by Pulse Oximetry (%) 96 07/12/19 10:00 Constitutional: Yes: No Distress Cardiovascular: Yes: Regular Rate and Rhythm, S1, S2 Respiratory: Yes: Diminished Gastrointestinal: Yes: Normal Bowel Sounds, Soft Labs: CBC, BMP 07/12/19 07:10 07/12/19 07:10 INR, PTT INR 1.65 (0.83-1.09) H 07/03/19 01:04 Assessment/Plan ACUTE RESPIRATORY FAILURE S/P EXTUBATION LLL PNEUMONIA SEPSIS/SEPTIC SHOCK RESOLVED +BC SCN C/W CONTAMINATION UTI LACTIC ACIDOSIS RESOLVED RENAL FAILURE RESOLVED ANEMIA THROMBOCYTOPENIA RESOLVED HYPERNATREMIA CONTINUE ZOSYN DISCUSSED WITH SON AT BEDSIDE
[2019-07-12] MEDS: ATORVASTATIN CA 10 MG TABLET (FP) PO SCH (21:24)
[2019-07-13] MEDS ORDERED: PIPERACILLIN/TAZOBACTAM 2.25 GM VIAL IVPB ONE ×3 (01:15→16:31)
[2019-07-13] MEDS ORDERED: DEXTROSE 5%-WATER - 50 ML IVPB ONE ×3 (01:15→16:31)
[2019-07-13] MEDS: PIPERACILLIN/TAZOB 2.25 GM 2.25 GM in DEXTROSE 5%-WATER - 50 ML IVPB SCH ×3 (01:43→17:55)
[2019-07-13] MEDS: INSULIN SLIDING SCALE (NOVOLOG) 1 VIAL SQ SCH ×3 (06:15→18:02)
[2019-07-13 08:54] LABS: HEMATOCRIT 27.6 % (32.4-45.2); HEMOGLOBIN 9.5 GM/dL (10.7-15.3); MCH 30.3 pg (25.7-33.7); MCHC 34.5 g/dl (32.0-36.0); MEAN CELL VOLUME 87.9 fl (80-96); MEAN PLT VOLUME 7.3 fl (7.5-11.1); PLATELET COUNT 368 K/MM3 (134-434); RBC 3.14 M/mm3 (3.60-5.2); RDW 14.7 % (11.6-15.6); WHITE BLOOD COUNT 7.8 K/mm3 (4.0-10.0)
[2019-07-13 09:16] LABS: BLOOD UREA NITROGEN 16.7 mg/dL (7-18); CALCIUM 8.2 mg/dL (8.5-10.1); CREATININE 0.9 mg/dL (0.55-1.3)
[2019-07-13] MEDS ORDERED: PT OWN MED DRAWER 7, Y5N ONE ×2 (09:31→17:54)
[2019-07-13] MEDS: PANTOPRAZOLE SODIUM 40 MG VIAL IVPUSH SCH (09:34)
[2019-07-13] MEDS: MINERAL OIL/PET HY-PHL TOPICAL OINTMENT 454 GM JAR TP SCH ×2 (09:35→21:33)
--- NOTE | 2019-07-13 10:00 | PN ---
Physical Exam: SUBJECTIVE: Patient seen and examined. No events overnight. Patient comfortably eating breakfast with aide. OBJECTIVE: Vital Signs Period Temp Pulse Resp BP Sys/Tolentino Pulse Ox Last 24 Hr 98.6 F-99.6 F 84-93 19-20 154-160/64-89 96-97 GENERAL: in NAD, comfortable EYES: PERRL, sclera anicteric ENT: moist mucous membranes. NECK: supple. LUNGS: decreased breath sounds, no accessory muscle use. HEART: RRR ABDOMEN: Soft, nontender, nondistended, normoactive bowel sounds EXTREMITIES: 2+ pulses, no edema. Laboratory Results - last 24 hr 07/12/19 07/12/19 07/12/19 07:10 07:10 11:46 WBC RBC Hgb Hct MCV MCH MCHC RDW Plt Count MPV Neutrophils % (Manual) 89.2 H Band Neutrophils % 1.0 Lymphocytes % (Manual) 5.9 L D Monocytes % (Manual) 3 L Eosinophils % (Manual) 0.0 D Basophils % (Manual) 0.0 Myelocytes % (Man) 1 D Promyelocytes % (Man) 0 Blast Cells % (Manual) 0 Nucleated RBC % 0 Metamyelocytes 0 Hypochromia 1+ Platelet Estimate Normal Polychromasia 1+ Poikilocytosis 0 Anisocytosis 1+ Microcytosis 1+ Macrocytosis 0 Ovalocytes 1+ Sodium 134 L Potassium 4.6 Chloride 103 Carbon Dioxide 25 Anion Gap 6 L BUN 22.4 H Creatinine 1.0 Est GFR (CKD-EPI)AfAm 57.84 Est GFR (CKD-EPI)NonAf 49.91 POC Glucometer 173 Random Glucose 114 H Calcium 8.2 L Total Bilirubin 0.5 AST 44 H ALT 43 Alkaline Phosphatase 230 H Total Protein 5.8 L Albumin 2.2 L 07/12/19 07/12/19 07/13/19 17:21 23:40 06:00 WBC RBC Hgb Hct MCV MCH MCHC RDW Plt Count MPV Neutrophils % (Manual) Band Neutrophils % Lymphocytes % (Manual) Monocytes % (Manual) Eosinophils % (Manual) Basophils % (Manual) Myelocytes % (Man) Promyelocytes % (Man) Blast Cells % (Manual) Nucleated RBC % Metamyelocytes Hypochromia Platelet Estimate Polychromasia Poikilocytosis Anisocytosis Microcytosis Macrocytosis Ovalocytes Sodium 134 L Potassium 4.0 Chloride 102 Carbon Dioxide 28 Anion Gap 5 L BUN 16.7 Creatinine 0.9 Est GFR (CKD-EPI)AfAm 65.70 Est GFR (CKD-EPI)NonAf 56.69 POC Glucometer 129 184 Random Glucose 105 Calcium 8.2 L Total Bilirubin AST ALT Alkaline Phosphatase Total Protein Albumin 07/13/19 07/13/19 06:14 07:55 WBC 7.8 RBC 3.14 L Hgb 9.5 L Hct 27.6 L MCV 87.9 MCH 30.3 MCHC 34.5 RDW 14.7 Plt Count 368 MPV 7.3 L Neutrophils % (Manual) Band Neutrophils % Lymphocytes % (Manual) Monocytes % (Manual) Eosinophils % (Manual) Basophils % (Manual) Myelocytes % (Man) Promyelocytes % (Man) Blast Cells % (Manual) Nucleated RBC % Metamyelocytes Hypochromia Platelet Estimate Polychromasia Poikilocytosis Anisocytosis Microcytosis Macrocytosis Ovalocytes Sodium Potassium Chloride Carbon Dioxide Anion Gap BUN Creatinine Est GFR (CKD-EPI)AfAm Est GFR (CKD-EPI)NonAf POC Glucometer 107 Random Glucose Calcium Total Bilirubin AST ALT Alkaline Phosphatase Total Protein Albumin Active Medications Generic Name Dose Route Start Last Admin Trade Name Freq PRN Reason Stop Dose Admin Acetaminophen 1,000 mg 07/08/19 18:54 07/08/19 19:08 Ofirmev Injection - IVPB 1,000 mg Q6H PRN Administration PAIN LEVEL 4 - 6 Albuterol/Ipratropium 1 amp 07/07/19 20:09 07/11/19 16:40 Duoneb - NEB 1 amp Q4H PRN Administration SHORTNESS OF BREATH Atorvastatin Calcium 10 mg 07/07/19 22:00 07/12/19 21:24 Lipitor - PO 10 mg HS [facility] Administration Emollient Ointment 1 applic 07/10/19 22:00 07/13/19 09:35 Aquaphor - TP 1 applic BID [facility] Administration Piperacillin Sod/Tazobactam 50 mls @ 100 mls/hr 07/08/19 02:00 07/13/19 09:34 Sod 2.25 gm/ Dextrose IVPB 100 mls/hr Q8H-IV [facility] Administration Protocol Insulin Aspart 1 vial 07/08/19 00:30 07/13/19 06:15 Novolog Vial Sliding Scale - SQ Not Given Q6H [facility] Protocol Pantoprazole Sodium 40 mg 07/08/19 10:00 07/13/19 09:34 Protonix Iv IVPUSH 40 mg DAILY [facility] Administration ASSESSMENT/PLAN: 89 year old woman with a history of HTN, hyperlipidemia, type 2 DM, anemia, TIA , dementia who presented to the ED with respiratory distress. #Septic shock secondary to Acute hypoxic respiratory failure secondary to pneumonia and E. faecalis UTI -extubated 07/06/19 -c/w zosyn-day 6 -blood cx neg -remains full code -Follow ID reccs #NC Anemia -s/p 2 Units PRBC. (07/04 and 07/08) -monitor h/h -now with +FOBT after being placed on hep for right arm DVT -hep drip stopped #Right arm DVT -was started on heparin gtt 07/09/19 -+FOBT -repeat cbc stable, no evidence of hemodynamic instability -no heparin at this time #Acute kidney injury secondary to hypoperfusion-resolved #Demand ischemia #Hypernatremia-resolved #Hypokalemia-resolved #Hypophosphatemia-resolved #Type 2 DM #HTN #HLD #History of TIA- holding asa in light of GIB on heparin #Dvt ppx -start hep sq TID Visit type - Emergency Visit Emergency Visit: Yes ED Registration Date: 07/03/19 Care time: The patient presented to the Emergency Department on the above date and was hospitalized for further evaluation of their emergent condition. - New Patient This patient is new to me today: Yes Date on this admission: 07/13/19 - Critical Care Critical Care patient: No ATTENDING PHYSICIAN STATEMENT I saw and evaluated the patient. I reviewed the resident's note and discussed the case with the resident. I agree with the resident's findings and plan as documented. SUBJECTIVE: OBJECTIVE: ASSESSMENT AND PLAN:
--- NOTE | 2019-07-13 10:23 | PN ---
Progress Note (short form) - Note Progress Note: PULMONARY Pt arousable, nonverbal. No fevers recorded. Vital Signs Period Temp Pulse Resp BP Sys/Tolentino Pulse Ox Last 24 Hr 98.6 F-99.6 F 84-93 19-20 154-160/64-89 97-97 Gen: NAD at rest Heart: RRR Lung: decreased breath sounds at the bases Abd: soft, nontender Ext: no edema CBC, BMP 07/13/19 07:55 07/13/19 06:00 Active Medications Acetaminophen (Ofirmev Injection -) 1,000 mg IVPB Q6H PRN PRN Reason: PAIN LEVEL 4 - 6 Last Admin: 07/08/19 19:08 Dose: 1,000 mg Albuterol/Ipratropium (Duoneb -) 1 amp NEB Q4H PRN PRN Reason: SHORTNESS OF BREATH Last Admin: 07/11/19 16:40 Dose: 1 amp Atorvastatin Calcium (Lipitor -) 10 mg PO HS [facility] Last Admin: 07/12/19 21:24 Dose: 10 mg Emollient Ointment (Aquaphor -) 1 applic TP BID [facility] Last Admin: 07/13/19 09:35 Dose: 1 applic Heparin Sodium (Porcine) (Heparin -) 5,000 unit SQ TID [facility] Piperacillin Sod/Tazobactam (Sod 2.25 gm/ Dextrose) 50 mls @ 100 mls/hr IVPB Q8H-IV [facility]; Protocol Last Admin: 07/13/19 09:34 Dose: 100 mls/hr Insulin Aspart (Novolog Vial Sliding Scale -) 1 vial SQ Q6H [facility]; Protocol Last Admin: 07/13/19 06:15 Dose: Not Given Pantoprazole Sodium (Protonix Iv) 40 mg IVPUSH DAILY [facility] Last Admin: 07/13/19 09:34 Dose: 40 mg A/P Acute Hypoxic Respiratory Failure improving Pneumonia UTI Bacteremia Septic Shock resolving Acute Kidney Injury improving Lactic Acidosis +Troponins likely Demand Ischemia Aortic Stenosis Pulmonary HTN DM Hypothyroidism Hypercholesterolemia h/o CVA Dementia Anemia - continue antibiotics per ID - inhaled bronchodilators - O2 to keep SpO2 >90% - monitor urine output, creatinine - aspiration precautions - DVT/GI prophylaxis
[2019-07-13] MEDS ORDERED: INSULIN (NOVOLOG) ASPART 100 UNITS/ML 10ML VIAL ONE (11:45)
--- NOTE | 2019-07-13 12:15 | PN ---
Progress Note, [employer]IVER - Note Progress Note: Selected Entries 07/12/19 07/12/19 07/12/19 02:00 06:50 09:25 Breakfast Lunch Supper Temperature 99.0 F 98.4 F 98.8 F 07/12/19 07/12/19 07/12/19 10:29 15:49 18:00 Breakfast 75% Lunch 75% Supper Temperature 99.6 F 98.6 F 07/12/19 07/12/19 07/13/19 19:35 22:00 06:00 Breakfast Lunch Supper 50% Temperature 98.8 F 98.8 F 07/13/19 10:00 Breakfast Lunch Supper Temperature 98.1 F Laboratory Tests 07/13/19 07:55 RBC 3.14 L On puree/honey TL.
--- NOTE | 2019-07-13 12:58 | PN ---
Progress Note, Physician Chief Complaint: Generalized weakness History of Present Illness: Patient was seen and examined. Awake. Chart was reviewed Denies chest pain or SOB - Current Medication List Current Medications: Active Medications Acetaminophen (Ofirmev Injection -) 1,000 mg IVPB Q6H PRN PRN Reason: PAIN LEVEL 4 - 6 Last Admin: 07/08/19 19:08 Dose: 1,000 mg Albuterol/Ipratropium (Duoneb -) 1 amp NEB Q4H PRN PRN Reason: SHORTNESS OF BREATH Last Admin: 07/11/19 16:40 Dose: 1 amp Atorvastatin Calcium (Lipitor -) 10 mg PO HS [facility] Last Admin: 07/12/19 21:24 Dose: 10 mg Emollient Ointment (Aquaphor -) 1 applic TP BID [facility] Last Admin: 07/13/19 09:35 Dose: 1 applic Heparin Sodium (Porcine) (Heparin -) 5,000 unit SQ TID [facility] Piperacillin Sod/Tazobactam (Sod 2.25 gm/ Dextrose) 50 mls @ 100 mls/hr IVPB Q8H-IV [facility]; Protocol Last Admin: 07/13/19 09:34 Dose: 100 mls/hr Insulin Aspart (Novolog Vial Sliding Scale -) 1 vial SQ Q6H [facility]; Protocol Last Admin: 07/13/19 11:47 Dose: 2 units Pantoprazole Sodium (Protonix Iv) 40 mg IVPUSH DAILY [facility] Last Admin: 07/13/19 09:34 Dose: 40 mg - Objective Vital Signs: Vital Signs Temperature 98.1 F 07/13/19 10:00 Pulse Rate 80 07/13/19 10:00 Respiratory Rate 20 07/13/19 10:00 Blood Pressure 156/76 07/13/19 10:00 O2 Sat by Pulse Oximetry (%) 97 07/13/19 10:00 HENT: Yes: Atraumatic Neck: Yes: Supple Cardiovascular: Yes: Regular Rate and Rhythm, Murmur (RASHID), S1, S2 Respiratory: Yes: Diminished Gastrointestinal: Yes: Normal Bowel Sounds, Soft. No: Tenderness Edema: No Labs: CBC, BMP 07/13/19 07:55 07/13/19 06:00 Problem List - Problems (1) Hypercholesterolemia Code(s): E78.00 - PURE HYPERCHOLESTEROLEMIA, UNSPECIFIED (2) JELANI (acute kidney injury) Code(s): N17.9 - ACUTE KIDNEY FAILURE, UNSPECIFIED (3) Acute urinary tract infection Code(s): N39.0 - URINARY TRACT INFECTION, SITE NOT SPECIFIED (4) Dementia Code(s): F03.90 - UNSPECIFIED DEMENTIA WITHOUT BEHAVIORAL DISTURBANCE (5) Generalized weakness Code(s): R53.1 - WEAKNESS (6) Hypertension Code(s): I10 - ESSENTIAL (PRIMARY) HYPERTENSION (7) Anemia Code(s): D64.9 - ANEMIA, UNSPECIFIED (8) Diabetes Code(s): E11.9 - TYPE 2 DIABETES MELLITUS WITHOUT COMPLICATIONS Qualifiers: Diabetes mellitus complication status: without complication (9) NSTEMI (non-ST elevated myocardial infarction) Code(s): I21.4 - NON-ST ELEVATION (NSTEMI) MYOCARDIAL INFARCTION (10) Respiratory failure Code(s): J96.90 - RESPIRATORY FAILURE, UNSP, UNSP W HYPOXIA OR HYPERCAPNIA Qualifiers: Chronicity: acute Respiratory failure complication: hypoxia Qualified Code(s): J96.01 - Acute respiratory failure with hypoxia Assessment/Plan 1. Acute hypoxemic respiratory failure post intubation and mechanical ventilation 2. Post septic shock LLL pneumonia and urosepsis 3. Hypercholesterolemia 4. Hypothyoidism 5. NIDDM 6. Cerebrovascular disease, h/o TIA 7. Organic brain/dementia 8. Anemia 9. Demand ischemia 10. JELANI due to septic shock 11. Moderate 12. Moderate TR 13. Pleural effusion PLAN: 1. Empiric antibiotic coverage 2. DVT prophylaxis. GI prophylaxis 3. Continue Quinapril 40 mg QD and Atorvastatin 10 mg QHS as tolerated Continue supportive care Saad Linton MD
[2019-07-13] MEDS: HEPARIN NA (PORCINE) 5,000 UNITS/ML 1ML VIAL SQ SCH ×2 (13:16→21:33)
--- NOTE | 2019-07-13 15:04 | PN ---
Progress Note, Physician History of Present Illness: Pt seen and examined at bedside. SHe appears comfortable. - Current Medication List Current Medications: Active Medications Acetaminophen (Ofirmev Injection -) 1,000 mg IVPB Q6H PRN PRN Reason: PAIN LEVEL 4 - 6 Last Admin: 07/08/19 19:08 Dose: 1,000 mg Albuterol/Ipratropium (Duoneb -) 1 amp NEB Q4H PRN PRN Reason: SHORTNESS OF BREATH Last Admin: 07/11/19 16:40 Dose: 1 amp Atorvastatin Calcium (Lipitor -) 10 mg PO HS [facility] Last Admin: 07/12/19 21:24 Dose: 10 mg Emollient Ointment (Aquaphor -) 1 applic TP BID [facility] Last Admin: 07/13/19 09:35 Dose: 1 applic Heparin Sodium (Porcine) (Heparin -) 5,000 unit SQ TID [facility] Last Admin: 07/13/19 13:16 Dose: 5,000 unit Piperacillin Sod/Tazobactam (Sod 2.25 gm/ Dextrose) 50 mls @ 100 mls/hr IVPB Q8H-IV SILVINO; Protocol Last Admin: 07/13/19 09:34 Dose: 100 mls/hr Insulin Aspart (Novolog Vial Sliding Scale -) 1 vial SQ Q6H SIL[facility]INO; Protocol Last Admin: 07/13/19 11:47 Dose: 2 units Pantoprazole Sodium (Protonix Iv) 40 mg IVPUSH DAILY [facility] Last Admin: 07/13/19 09:34 Dose: 40 mg - Objective Vital Signs: Vital Signs Temperature 98.1 F 07/13/19 10:00 Pulse Rate 80 07/13/19 10:00 Respiratory Rate 20 07/13/19 10:00 Blood Pressure 156/76 07/13/19 10:00 O2 Sat by Pulse Oximetry (%) 97 07/13/19 10:00 Constitutional: Yes: Calm Eyes: Yes: Conjunctiva Clear HENT: Yes: Atraumatic Cardiovascular: Yes: S1, S2 Respiratory: Yes: CTA Bilaterally Gastrointestinal: Yes: Soft Genitourinary: Yes: Incontinence Musculoskeletal: Yes: Muscle Weakness Edema: No Neurological: Yes: Confusion Labs: CBC, BMP 07/13/19 07:55 07/13/19 06:00 INR, PTT INR 1.65 (0.83-1.09) H 07/03/19 01:04 Assessment/Plan Current Medications Generic Name Dose Route Start Last Admin Trade Name Stacia PRN Reason Stop Dose Admin Acetaminophen 1,000 mg 07/08/19 18:54 07/08/19 19:08 Ofirmev Injection - IVPB 1,000 mg Q6H PRN Administration PAIN LEVEL 4 - 6 Albuterol/Ipratropium 1 amp 07/07/19 20:09 07/11/19 16:40 Duoneb - NEB 1 amp Q4H PRN Administration SHORTNESS OF BREATH Atorvastatin Calcium 10 mg 07/07/19 22:00 07/12/19 21:24 Lipitor - PO 10 mg HS SILVINO Administration Emollient Ointment 1 applic 07/10/19 22:00 07/13/19 09:35 Aquaphor - TP 1 applic BID SIL[facility]INO Administration Heparin Sodium (Porcine) 5,000 unit 07/13/19 14:00 07/13/19 13:16 Heparin - SQ 5,000 unit TID SIL[facility]INO Administration Piperacillin Sod/Tazobactam 50 mls @ 100 mls/hr 07/08/19 02:00 07/13/19 09:34 Sod 2.25 gm/ Dextrose IVPB 100 mls/hr Q8H-IV SILVINO Administration Protocol Insulin Aspart 1 vial 07/08/19 00:30 07/13/19 11:47 Novolog Vial Sliding Scale - SQ 2 units Q6H SILVINO Administration Protocol Pantoprazole Sodium 40 mg 07/08/19 10:00 07/13/19 09:34 Protonix Iv IVPUSH 40 mg DAILY SIL[facility]INO Administration 1. JELANI 2. Metabolic acidosis 3. Hypernatremia 4. Sepsis 5. Respiratory failure 6. Anemia 7. PNA 8. hypokalemia Plan - encourage po intake - repeat labs in am - will hold off clinimix for now - renal function stable - avoid nephrotoxins
--- NOTE | 2019-07-13 17:07 | PN ---
Teaching Attending Note Name of Resident: Joanne Fields ATTENDING PHYSICIAN STATEMENT I saw and evaluated the patient. I reviewed the resident's note and discussed the case with the resident. I agree with the resident's findings and plan as documented. SUBJECTIVE: Seen and examined at bedside, no acute events overnight. Feeling better. OBJECTIVE: Vital Signs - 24 hr 07/12/19 07/12/19 07/12/19 18:00 19:35 23:11 Temperature 98.6 F 98.8 F Pulse Rate 85 93 H Respiratory 19 20 20 Rate Blood Pressure 160/89 160/78 O2 Sat by Pulse 97 Oximetry (%) 07/13/19 07/13/19 07/13/19 06:00 09:00 10:00 Temperature 98.8 F 98.1 F Pulse Rate 84 80 Respiratory 20 20 20 Rate Blood Pressure 154/64 156/76 O2 Sat by Pulse 97 97 Oximetry (%) 07/13/19 15:08 Temperature 97.8 F Pulse Rate 86 Respiratory 22 H Rate Blood Pressure 148/78 O2 Sat by Pulse Oximetry (%) PE: Constitutional: Yes: No Distress Cardiovascular: Yes: WNL, Regular Rate and Rhythm Respiratory: Yes: WNL, Regular, CTA Bilaterally. No: Cough Gastrointestinal: Yes: WNL, Normal Bowel Sounds, Soft Extremities: Yes: Other (heel foam pads, bilateral upper extremities less edematous, ecchymotic) Edema: No edema Current Medications Acetaminophen (Ofirmev Injection -) 1,000 mg IVPB Q6H PRN PRN Reason: PAIN LEVEL 4 - 6 Last Admin: 07/08/19 19:08 Dose: 1,000 mg Albuterol/Ipratropium (Duoneb -) 1 amp NEB Q4H PRN PRN Reason: SHORTNESS OF BREATH Last Admin: 07/11/19 16:40 Dose: 1 amp Atorvastatin Calcium (Lipitor -) 10 mg PO HS [facility] Last Admin: 07/12/19 21:24 Dose: 10 mg Emollient Ointment (Aquaphor -) 1 applic TP BID [facility] Last Admin: 07/13/19 09:35 Dose: 1 applic Heparin Sodium (Porcine) (Heparin -) 5,000 unit SQ TID [facility] Last Admin: 07/13/19 13:16 Dose: 5,000 unit Piperacillin Sod/Tazobactam (Sod 2.25 gm/ Dextrose) 50 mls @ 100 mls/hr IVPB Q8H-IV [facility]; Protocol Last Admin: 07/13/19 09:34 Dose: 100 mls/hr Insulin Aspart (Novolog Vial Sliding Scale -) 1 vial SQ Q6H [facility]; Protocol Last Admin: 07/13/19 11:47 Dose: 2 units Pantoprazole Sodium (Protonix Iv) 40 mg IVPUSH DAILY [facility] Last Admin: 07/13/19 09:34 Dose: 40 mg Laboratory Results - last 24 hr 07/12/19 07/12/19 07/13/19 17:21 23:40 06:00 WBC RBC Hgb Hct MCV MCH MCHC RDW Plt Count MPV Sodium 134 L Potassium 4.0 Chloride 102 Carbon Dioxide 28 Anion Gap 5 L BUN 16.7 Creatinine 0.9 Est GFR (CKD-EPI)AfAm 65.70 Est GFR (CKD-EPI)NonAf 56.69 POC Glucometer 129 184 Random Glucose 105 Calcium 8.2 L 07/13/19 07/13/19 07/13/19 06:14 07:55 11:26 WBC 7.8 RBC 3.14 L Hgb 9.5 L Hct 27.6 L MCV 87.9 MCH 30.3 MCHC 34.5 RDW 14.7 Plt Count 368 MPV 7.3 L Sodium Potassium Chloride Carbon Dioxide Anion Gap BUN Creatinine Est GFR (CKD-EPI)AfAm Est GFR (CKD-EPI)NonAf POC Glucometer 107 163 Random Glucose Calcium Microbiology 07/03/19 17:20 Sputum - Endotrachea Suction/Ventilator Gram Stain - Final 07/03/19 17:20 Sputum - Endotrachea Suction/Ventilator Sputum Culture - Final Enterobacter Aerogenes Klebsiella Pneumoniae 07/04/19 05:50 Blood - Peripheral Venous Blood Culture - Final NO GROWTH AFTER 5 DAYS INCUBATION 07/04/19 05:25 Blood - Peripheral Venous Blood Culture - Final NO GROWTH AFTER 5 DAYS INCUBATION 07/03/19 17:20 Urine - Urine [place] Legionella Antigen - Final 07/03/19 17:20 Urine - Urine [place] Streptococcus pneumoniae Antigen (M - Final 07/03/19 01:22 Blood - Peripheral Venous Blood Culture - Final NO GROWTH AFTER 5 DAYS INCUBATION 07/03/19 01:04 Blood - Peripheral Venous Blood Culture - Final Staphylococcus Epidermidis 07/03/19 02:14 Urine - Urine [place] Urine Culture - Final Enterococcus Faecalis All imaging reports reviewed ASSESSMENT AND PLAN: 89 year old woman with a history of HTN, hyperlipidemia, type 2 DM, anemia, TIA , dementia who presented to the ED with respiratory distress. 1. Septic shock secondary to Acute hypoxic respiratory failure secondary to pneumonia and E. faecalis UTI -extubated 07/06/19 -c/w zosyn-day 6 -blood cx neg -ID eval 2. NC Anemia -transfused 1 unit PRBCs 07/04 and on 07/08 -monitor h/h +FOBT after being placed on hep for right arm DVT -hep stopped for 2 days now -resume dct ppx 3. Right arm DVT -was started on heparin gtt 07/09/19 -+FOBT -repeat cbc stable, no evidence of hemodynamic instability -no heparin at this time Acute kidney injury secondary to hypoperfusion-resolved Demand ischemia Hypernatremia-resolved Hypokalemia-resolved Hypophosphatemia-resolved Type 2 DM HTN HLD History of TIA -holding asa in light of GIB on heparin -cw current regimen Problem List - Problems (1) Acute hypoxemic respiratory failure Code(s): J96.01 - ACUTE RESPIRATORY FAILURE WITH HYPOXIA (2) Demand ischemia Code(s): I24.8 - OTHER FORMS OF ACUTE ISCHEMIC HEART DISEASE (3) Hypercholesterolemia Code(s): E78.00 - PURE HYPERCHOLESTEROLEMIA, UNSPECIFIED (4) NSTEMI (non-ST elevated myocardial infarction) Code(s): I21.4 - NON-ST ELEVATION (NSTEMI) MYOCARDIAL INFARCTION (5) Respiratory failure Code(s): J96.90 - RESPIRATORY FAILURE, UNSP, UNSP W HYPOXIA OR HYPERCAPNIA (6) Septic shock Code(s): A41.9 - SEPSIS, UNSPECIFIED ORGANISM; R65.21 - SEVERE SEPSIS WITH SEPTIC SHOCK (7) JELANI (acute kidney injury) Code(s): N17.9 - ACUTE KIDNEY FAILURE, UNSPECIFIED (8) Acute urinary tract infection Code(s): N39.0 - URINARY TRACT INFECTION, SITE NOT SPECIFIED (9) Dehydration Code(s): E86.0 - DEHYDRATION (10) Dementia Code(s): F03.90 - UNSPECIFIED DEMENTIA WITHOUT BEHAVIORAL DISTURBANCE (11) Generalized weakness Code(s): R53.1 - WEAKNESS (12) Hypertension Code(s): I10 - ESSENTIAL (PRIMARY) HYPERTENSION (13) Anemia Code(s): D64.9 - ANEMIA, UNSPECIFIED (14) Diabetes Code(s): E11.9 - TYPE 2 DIABETES MELLITUS WITHOUT COMPLICATIONS Qualifiers: Diabetes mellitus complication status: without complication
[2019-07-13] MEDS ORDERED: QUINAPRIL HCL 40 MG TABLET (FP) PO ONE (17:27)
--- NOTE | 2019-07-13 17:33 | PN ---
Progress Note (short form) - Note Progress Note: HPI 89 year old female history of dementia, HTN, HLD, hypothyroidism, anemia, TIA, and NIDDM came to hospital for respiratory failure, septicemia and she was intubated and extubated. She remains to confused and non verbal. Patient has not had any ct head. She has history of dementia and resident of [place]. Patient is not in any distress. I spoke to nursing staff. She is afebrile and no acut edistress. no new complain, she is non verbal. NEUROLOGICAL EXAMIANTION Alert ,oriented x 0, aphasic , not able to communicate eomi, pupils reactive no face asymmetry withdraws extremity to pain ct head no acute findings, and no interval change Assessment/Plan 89 year old female history of dementia, HTN, HLD, hypothyroidism, anemia, TIA, and NIDDM came to hospital for pneumonia, and septicemia. She was in icu , inutbated and extubated. Now has worse mental status than before. Unlikely to be meningitis. Worsening of dementia vs delirium Suspect component of critical illness encephalopathy as well. Plan: continue pt, supportive care - ct head reviewed, no acute findings - continue current level of care, waiting for placement Thanking you so much David Paris MD
--- NOTE | 2019-07-13 18:40 | CON.GI ---
Consult Consult Specialty:: Gastroenterology Referred by:: Dr. Hanson Reason for Consultation:: Occult GI bleeding, anemia and need for anticoagulation - History of Present Illness Chief Complaint: moaning but not expressing anything meaningful History of Present Illness: 89F was admitted with respiratory failure, altered mental status and urosepsis. A duplex scan reveals a RUE DVT. She is known to our practice in the past for chronic anemia and occult bleeding. She had colonoscopies on 11/05 and 09/07 which revealed rectal prolapse and diverticulosis. She last had an EGD on when a patent Schatzki ring and GERD were found. A CT scan has found that she has developed a large hiatal hernia. She is chronically on iron but has requires blood transfusions. Some of her bleeding has been attributed to her rectal prolpase but small bowel vascular ectasias cannot be excluded. She never complied enough to have a capsule endoscopy. She refused an EGD with Dr Rodriguez in 02/08. She underwent a combined rectal and bladder prolapse repair in 09/07 and 02/07 but the rectal prolapse recurred. Dr Long a colorectal surgeon at [facility] did a more definitive rectal prolapse repair in . Her son reports that he has never seen a prolapse recur since then. 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: Yes: Dementia, TIA Cardio/Vascular: Yes: HTN, Hyperlipdemia Pulmonary: Yes: Bronchitis, Sleep Apnea, Other (Bronchiectasis) Gastrointestinal: Yes: Diverticulosis, GERD (with Schatzki ring), Hiatal Hernia (large), Other (rectal prolapse despite repair and bladder suspension procedure) Hepatobiliary: Yes: Cholelithiasis Renal/: Yes: Renal Calculi Reproductive: Yes: Fibroids ...: No Heme/Onc: Yes: Anemia Psych: Yes: Anxiety, Schizophrenia Rheumatology: Yes: Other (chondrocalcinosis) Endocrine: Yes: Diabetes Mellitus, Hypothyroidism - Past Surgical History Past Surgical History: Yes: Cataract Removal, Colonoscopy, Tonsillectomy, Upper Endoscopy Additional Surgical History: s/p combined rectal and bladder prolapse repairs Dr. Piyush Linton. rectal prolapse repair 02/07 Dr. Piyush Linton. 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 History of Recent Travel: No Home Medications - Allergies Allergies/Adverse Reactions: Allergies Allergy/AdvReac Type Severity Reaction Status Date / Time No Known Allergies Allergy Verified 04/18/19 14:54 - Home Medications Home Medications: Ambulatory Orders Atorvastatin Ca [Lipitor] 10 mg PO HS #0 tablet 06/14/13 Levothyroxine [Synthroid -] 75 mcg PO DAILY #0 tablet 06/14/13 Metoprolol Succinate [Toprol XL -] 25 mg PO DAILY #0 tab.sr.24h 06/14/13 Multivit-Min/FA/Lycopene/Lut [Centrum Silver Tablet] 1 each PO DAILY #0 tablet 06/14/13 Quinapril HCl [Accupril -] 40 mg PO DAILY #0 tablet 06/14/13 Ascorbic Acid [Vitamin C -] 500 mg PO DAILY #30 tablet 06/20/14 Tramadol HCl 50 mg PO PRN PRN 12/21/15 Alprazolam [Xanax] 2 tablet PO HS 01/22/16 Aspirin [ASA -] 81 mg PO DAILY 01/22/16 Cyanocobalamin (Vitamin B-12) [Vitamin B12] 5,000 mcg PO DAILY 01/22/16 Ibuprofen/Diphenhydramine Cit [Advil Pm Caplet] 1 each PO HS PRN 01/22/16 Memantine HCl [Namenda -] 20 mg PO HS 01/22/16 Metformin HCl [Riomet] 750 mg PO DAILY 01/22/16 Cephalexin [Keflex] 500 mg PO BID #14 capsule 04/18/19 Family Medical History Family Hx Cardiac Disorders: Father ( of cardiac arrest age 56) Family Hx Diabetes: Mother Other Family History: 8 children Review of Systems Unable to obtain ROS, reason: dementia Physical Exam-GI Vital Signs: Vital Signs Temperature 97.8 F 07/13/19 15:08 Pulse Rate 86 07/13/19 15:08 Respiratory Rate 22 H 07/13/19 15:08 Blood Pressure 148/78 07/13/19 15:08 O2 Sat by Pulse Oximetry (%) 97 07/13/19 10:00 CBC,CMP WBC 7.8 K/mm3 (4.0-10.0) 07/13/19 07:55 Corrected WBC (auto) Cancelled 07/09/19 00:00 RBC 3.14 M/mm3 (3.60-5.2) L 07/13/19 07:55 Hgb 9.5 GM/dL (10.7-15.3) L 07/13/19 07:55 Hct 27.6 % (32.4-45.2) L 07/13/19 07:55 MCV 87.9 fl (80-96) 07/13/19 07:55 MCH 30.3 pg (25.7-33.7) 07/13/19 07:55 MCHC 34.5 g/dl (32.0-36.0) 07/13/19 07:55 RDW 14.7 % (11.6-15.6) 07/13/19 07:55 Plt Count 368 K/MM3 (134-434) 07/13/19 07:55 MPV 7.3 fl (7.5-11.1) L 07/13/19 07:55 Absolute Neuts (auto) 6.3 K/mm3 (1.5-8.0) 07/10/19 06:30 Absolute Lymphs (auto) Cancelled 07/09/19 00:00 Absolute Monos (auto) Cancelled 07/09/19 00:00 Absolute Eos (auto) Cancelled 07/09/19 00:00 Absolute Basos (auto) Cancelled 07/09/19 00:00 Add Manual Diff Cancelled 07/09/19 00:00 Neutrophils % No Result Required. 07/11/19 05:48 Neutrophils % (Manual) 89.2 % (42.8-82.8) H 07/12/19 07:10 Band Neutrophils % 1.0 % 07/12/19 07:10 Lymphocytes % No Result Required. 07/11/19 05:48 Lymphocytes % (Manual) 5.9 % (8-40) L D 07/12/19 07:10 Monocytes % 6.5 % (3.8-10.2) 07/10/19 06:30 Monocytes % (Manual) 3 % (3.8-10.2) L 07/12/19 07:10 Eosinophils % 1.2 % (0-4.5) 07/10/19 06:30 Eosinophils % (Manual) 0.0 % (0-4.5) D 07/12/19 07:10 Basophils % 0.5 % (0-2.0) 07/10/19 06:30 Basophils % (Manual) 0.0 % (0-2.0) 07/12/19 07:10 Myelocytes % (Man) 1 % (0-2) D 07/12/19 07:10 Promyelocytes % (Man) 0 % (0-2) 07/12/19 07:10 Blast Cells % (Manual) 0 % (0-0) 07/12/19 07:10 Nucleated RBC % 0 % (0-0) 07/12/19 07:10 Metamyelocytes 0 % (0-2) 07/12/19 07:10 Manual Slide Review Cancelled 07/11/19 05:48 Hypochromia 1+ 07/12/19 07:10 Platelet Estimate Normal 07/12/19 07:10 Platelet Comment Present 07/11/19 05:48 Normal RBC Morphology Cancelled 07/09/19 00:00 Polychromasia 1+ 07/12/19 07:10 Poikilocytosis 0 07/12/19 07:10 Anisocytosis 1+ 07/12/19 07:10 Microcytosis 1+ 07/12/19 07:10 Macrocytosis 0 07/12/19 07:10 Tear Drop Cells 1+ 07/10/19 06:30 Ovalocytes 1+ 07/12/19 07:10 [place] Bodies 1+ 07/08/19 08:16 Anai Cells 2+ 07/10/19 06:30 Acanthocytes (Spur) 1+ 07/10/19 06:30 Rouleaux 1+ 07/03/19 13:09 Schistocytes 1+ 07/05/19 07:30 Sodium 134 mmol/L (136-145) L 07/13/19 06:00 Potassium 4.0 mmol/L (3.5-5.1) 07/13/19 06:00 Chloride 102 mmol/L (98-107) 07/13/19 06:00 Carbon Dioxide 28 mmol/L (21-32) 07/13/19 06:00 Anion Gap 5 MMOL/L (8-16) L 07/13/19 06:00 BUN 16.7 mg/dL (7-18) 07/13/19 06:00 Creatinine 0.9 mg/dL (0.55-1.3) 07/13/19 06:00 Est GFR (CKD-EPI)AfAm 65.70 07/13/19 06:00 Est GFR (CKD-EPI)NonAf 56.69 07/13/19 06:00 POC Glucometer 153 UNITS (80-120) 07/13/19 18:00 Random Glucose 105 mg/dL (74-106) 07/13/19 06:00 Lactic Acid 1.3 mmol/L (0.4-2.0) 07/05/19 08:45 Calcium 8.2 mg/dL (8.5-10.1) L 07/13/19 06:00 Phosphorus 2.0 mg/dL (2.5-4.9) L 07/09/19 08:15 Magnesium 1.3 mg/dL (1.8-2.4) L 07/09/19 08:15 Total Bilirubin 0.5 mg/dL (0.2-1) 07/12/19 07:10 AST 44 U/L (15-37) H 07/12/19 07:10 ALT 43 U/L (13-61) 07/12/19 07:10 Alkaline Phosphatase 230 U/L (45-117) H 07/12/19 07:10 Creatine Kinase 162 U/L (26-192) 07/06/19 06:00 Creatine Kinase Index 0.6 % (0.0-5.0) 07/06/19 06:00 CK-MB (CK-2) 1.1 ng/mL (0.5-3.6) 07/06/19 06:00 Troponin I 0.09 ng/ml (0.00-0.05) H 07/06/19 06:00 Total Protein 5.8 g/dl (6.4-8.2) L 07/12/19 07:10 Albumin 2.2 g/dl (3.4-5.0) L 07/12/19 07:10 Current Medications Generic Name Dose Route Start Last Admin Trade Name Freq PRN Reason Stop Dose Admin Acetaminophen 1,000 mg 07/08/19 18:54 07/08/19 19:08 Ofirmev Injection - IVPB 1,000 mg Q6H PRN Administration PAIN LEVEL 4 - 6 Albuterol/Ipratropium 1 amp 07/07/19 20:09 07/11/19 16:40 Duoneb - NEB 1 amp Q4H PRN Administration SHORTNESS OF BREATH Atorvastatin Calcium 10 mg 07/07/19 22:00 07/12/19 21:24 Lipitor - PO 10 mg HS SILVINO Administration Emollient Ointment 1 applic 07/10/19 22:00 07/13/19 09:35 Aquaphor - TP 1 applic BID S[facility]INO Administration Heparin Sodium (Porcine) 5,000 unit 07/13/19 14:00 07/13/19 13:16 Heparin - SQ 5,000 unit TID SILVINO Administration Piperacillin Sod/Tazobactam 50 mls @ 100 mls/hr 07/08/19 02:00 07/13/19 17:55 Sod 2.25 gm/ Dextrose IVPB 100 mls/hr Q8H-IV SILVINO Administration Protocol Insulin Aspart 1 vial 07/08/19 00:30 07/13/19 18:02 Novolog Vial Sliding Scale - SQ 2 units Q6H SILVINO Administration Protocol Pantoprazole Sodium 40 mg 07/08/19 10:00 07/13/19 09:34 Protonix Iv IVPUSH 40 mg DAILY [facility] Administration Quinapril HCl 40 mg 07/14/19 10:00 Accupril - PO DAILY [facility]INO Constitutional: Yes: No Distress, Anxious, Other (confused) Eyes: Yes: Conjunctiva Clear HENT: Yes: Atraumatic Neck: Yes: Trachea Midline Cardiovascular: Yes: Regular Rate and Rhythm Respiratory: Yes: CTA Bilaterally Gastrointestinal Inspection: Yes: WNL ...Auscultate: Yes: Hypoactive Bowel Sounds ...Palpate: Yes: Soft, Other (nontender) ...Rectal Exam: Yes: Guaiac Positive (fresh blood with nil anal tone. NO masses. Cannot exclude internal hemorrhoids) Edema: No Neurological: Yes: Alert, Other (confused) Labs: CBC, BMP 07/13/19 07:55 07/13/19 06:00 INR, PTT INR 1.65 (0.83-1.09) H 07/03/19 01:04 Problem List - Problems (1) Anemia due to gastrointestinal blood loss Code(s): D50.0 - IRON DEFICIENCY ANEMIA SECONDARY TO BLOOD LOSS (CHRONIC) (2) Rectal mucosa prolapse Assessment/Plan: repaired x 3 Code(s): K62.3 - RECTAL PROLAPSE (3) Diverticulosis Code(s): K57.90 - DVRTCLOS OF INTEST, PART UNSP, W/O PERF OR ABSCESS W/O BLEED (4) Schatzki's ring of distal esophagus Code(s): K22.2 - ESOPHAGEAL OBSTRUCTION (5) Gastroesophageal reflux disease with hiatal hernia Code(s): K21.9 - GASTRO-ESOPHAGEAL REFLUX DISEASE WITHOUT ESOPHAGITIS; K44.9 - DIAPHRAGMATIC HERNIA WITHOUT OBSTRUCTION OR GANGRENE (6) Constipation Code(s): K59.00 - CONSTIPATION, UNSPECIFIED (7) Hypothyroidism Code(s): E03.9 - HYPOTHYROIDISM, UNSPECIFIED (8) Acute hypoxemic respiratory failure Code(s): J96.01 - ACUTE RESPIRATORY FAILURE WITH HYPOXIA (9) Demand ischemia Code(s): I24.8 - OTHER FORMS OF ACUTE ISCHEMIC HEART DISEASE (10) Dementia Code(s): F03.90 - UNSPECIFIED DEMENTIA WITHOUT BEHAVIORAL DISTURBANCE (11) Diabetes Code(s): E11.9 - TYPE 2 DIABETES MELLITUS WITHOUT COMPLICATIONS Qualifiers: Diabetes mellitus complication status: without complication Assessment/Plan Impression: -- Ngozi has a longstanding h/o iron deficiency anemia due to chronic bleeding from her recurrent rectal prolapse which improved after the 04/11 repair. This bleeding will likely increase while on heparin but given her DVT and likely reflects some residual prolapse or hemorrhoids. She may alternatively be bleeding from [place] ulcers within her large hiatal hernia and /or small bowel vascular ectasias. I will order Venofer but expect that she will come to need transfusion until her A/C can be stopped. - Chronic GERD across a large hiatal hernia that has caused a Schatzki ring in the past. She is fortunately eating well. Plan: -- Venofer -- Pantoprazole BID -- Miralax -- I discussed her situation with her son Andrés. He does not want her subjected to an elective endoscopic procedures but can reconsider is heavier bleeding ensues.
--- NOTE | 2019-07-13 19:09 | PN ---
Progress Note, Physician History of Present Illness: AWAKE, NOT VERBALY RESPONSIVE AFEBRILE BREATHING NON-LABORED - Current Medication List Current Medications: Active Medications Acetaminophen (Ofirmev Injection -) 1,000 mg IVPB Q6H PRN PRN Reason: PAIN LEVEL 4 - 6 Last Admin: 07/08/19 19:08 Dose: 1,000 mg Albuterol/Ipratropium (Duoneb -) 1 amp NEB Q4H PRN PRN Reason: SHORTNESS OF BREATH Last Admin: 07/11/19 16:40 Dose: 1 amp Atorvastatin Calcium (Lipitor -) 10 mg PO HS [facility] Last Admin: 07/12/19 21:24 Dose: 10 mg Emollient Ointment (Aquaphor -) 1 applic TP BID [facility] Last Admin: 07/13/19 09:35 Dose: 1 applic Heparin Sodium (Porcine) (Heparin -) 5,000 unit SQ TID [facility] Last Admin: 07/13/19 13:16 Dose: 5,000 unit Piperacillin Sod/Tazobactam (Sod 2.25 gm/ Dextrose) 50 mls @ 100 mls/hr IVPB Q8H-IV [facility]; Protocol Last Admin: 07/13/19 17:55 Dose: 100 mls/hr Insulin Aspart (Novolog Vial Sliding Scale -) 1 vial SQ Q6H [facility]; Protocol Last Admin: 07/13/19 18:02 Dose: 2 units Pantoprazole Sodium (Protonix Iv) 40 mg IVPUSH DAILY [facility] Last Admin: 07/13/19 09:34 Dose: 40 mg Quinapril HCl (Accupril -) 40 mg PO DAILY [facility] - Objective Vital Signs: Vital Signs Temperature 98.2 F 07/13/19 16:20 Pulse Rate 84 07/13/19 16:20 Respiratory Rate 18 07/13/19 16:20 Blood Pressure 139/70 07/13/19 16:20 O2 Sat by Pulse Oximetry (%) 97 07/13/19 10:00 Constitutional: Yes: No Distress Cardiovascular: Yes: Regular Rate and Rhythm, S1, S2 Respiratory: Yes: Diminished Gastrointestinal: Yes: Normal Bowel Sounds Edema: Yes Edema: LLE: 1+, RLE: 1+ Labs: CBC, BMP 07/13/19 07:55 07/13/19 06:00 INR, PTT INR 1.65 (0.83-1.09) H 07/03/19 01:04 Assessment/Plan ACUTE RESPIRATORY FAILURE S/P EXTUBATION LLL PNEUMONIA SEPSIS/SEPTIC SHOCK RESOLVED +BC SCN C/W CONTAMINATION UTI LACTIC ACIDOSIS RESOLVED RENAL FAILURE RESOLVED ANEMIA THROMBOCYTOPENIA RESOLVED HYPERNATREMIA CONTINUE ZOSYN
[2019-07-13] MEDS: PANTOPRAZOLE 40 MG TABLET PO SCH (21:33)
[2019-07-13] MEDS: ATORVASTATIN CA 10 MG TABLET (FP) PO SCH (21:33)
[2019-07-14] MEDS: INSULIN SLIDING SCALE (NOVOLOG) 1 VIAL SQ SCH ×4 (00:45→17:48)
[2019-07-14] MEDS ORDERED: PIPERACILLIN/TAZOBACTAM 2.25 GM VIAL IVPB ONE ×3 (00:51→17:14)
[2019-07-14] MEDS ORDERED: DEXTROSE 5%-WATER - 50 ML IVPB ONE ×3 (00:51→17:14)
[2019-07-14] MEDS: PIPERACILLIN/TAZOB 2.25 GM 2.25 GM in DEXTROSE 5%-WATER - 50 ML IVPB SCH ×3 (01:38→17:32)
[2019-07-14] MEDS: HEPARIN NA (PORCINE) 5,000 UNITS/ML 1ML VIAL SQ SCH ×2 (06:08→23:04)
[2019-07-14 08:04] LABS: BASO % 0.4 % (0-2.0); EOS % 1.2 % (0-4.5); HEMATOCRIT 24.7 % (32.4-45.2); HEMOGLOBIN 8.4 GM/dL (10.7-15.3); LYMPH % 14.5 % (8-40); MCH 29.9 pg (25.7-33.7); MEAN CELL VOLUME 88.1 fl (80-96); MEAN PLT VOLUME 7.4 fl (7.5-11.1); MONO % 7.4 % (3.8-10.2); NEUT % 76.5 % (42.8-82.8); PLATELET COUNT 358 K/MM3 (134-434); RDW 14.7 % (11.6-15.6)
[2019-07-14 08:27] LABS: BILIRUBIN,TOTAL 0.3 mg/dL (0.2-1); BLOOD UREA NITROGEN 16.9 mg/dL (7-18); CALCIUM 7.8 mg/dL (8.5-10.1); TOT PROT 5.5 g/dl (6.4-8.2)
--- NOTE | 2019-07-14 09:48 | PN ---
Progress Note (short form) - Note Progress Note: PULMONARY Pt more awake today, mumbling words. No fevers recorded. Vital Signs Period Temp Pulse Resp BP Sys/Tolentino Pulse Ox Last 24 Hr 97.8 F-99.5 F 73-88 18-22 118-156/53-78 96-97 Gen: NAD at rest Heart: RRR Lung: decreased breath sounds at the bases Abd: soft, nontender Ext: no edema CBC, BMP 07/14/19 06:37 07/14/19 06:37 Active Medications Acetaminophen (Ofirmev Injection -) 1,000 mg IVPB Q6H PRN PRN Reason: PAIN LEVEL 4 - 6 Last Admin: 07/08/19 19:08 Dose: 1,000 mg Albuterol/Ipratropium (Duoneb -) 1 amp NEB Q4H PRN PRN Reason: SHORTNESS OF BREATH Last Admin: 07/11/19 16:40 Dose: 1 amp Atorvastatin Calcium (Lipitor -) 10 mg PO HS [facility] Last Admin: 07/13/19 21:33 Dose: 10 mg Emollient Ointment (Aquaphor -) 1 applic TP BID [facility] Last Admin: 07/13/19 21:33 Dose: 1 applic Heparin Sodium (Porcine) (Heparin -) 5,000 unit SQ TID [facility] Last Admin: 07/14/19 06:08 Dose: 5,000 unit Piperacillin Sod/Tazobactam (Sod 2.25 gm/ Dextrose) 50 mls @ 100 mls/hr IVPB Q8H-IV [facility]; Protocol Last Admin: 07/14/19 01:38 Dose: 100 mls/hr Insulin Aspart (Novolog Vial Sliding Scale -) 1 vial SQ Q6H [facility]; Protocol Last Admin: 07/14/19 06:10 Dose: Not Given Pantoprazole Sodium (Protonix -) 40 mg PO BID [facility] Last Admin: 07/13/19 21:33 Dose: 40 mg Polyethylene Glycol (Miralax (For Daily Use) -) 17 gm PO DAILY [facility] Quinapril HCl (Accupril -) 40 mg PO DAILY [facility] A/P Acute Hypoxic Respiratory Failure improving Pneumonia UTI Bacteremia Septic Shock resolving Acute Kidney Injury improving Lactic Acidosis +Troponins likely Demand Ischemia Aortic Stenosis Pulmonary HTN DM Hypothyroidism Hypercholesterolemia h/o CVA Dementia Anemia - complete antibiotics - inhaled bronchodilators - O2 to keep SpO2 >90% - monitor urine output, creatinine - aspiration precautions - DVT/GI prophylaxis
[2019-07-14] MEDS ORDERED: PT OWN MED DRAWER 7, Y5N ONE (10:15)
[2019-07-14] MEDS: POLYETHYLENE GLYCOL 3350 119 GM BTL PO SCH (10:18)
[2019-07-14] MEDS: QUINAPRIL HCL 40 MG TABLET (FP) PO SCH (10:18)
[2019-07-14] MEDS: MINERAL OIL/PET HY-PHL TOPICAL OINTMENT 454 GM JAR TP SCH ×2 (10:19→23:04)
[2019-07-14] MEDS: PANTOPRAZOLE 40 MG TABLET PO SCH ×2 (10:19→23:04)
--- NOTE | 2019-07-14 10:21 | PN ---
Progress Note, Physician History of Present Illness: Lethargic afebrile, nonverbal. Heparin gtt dced due to anemia and +FOBT. GI input appreciated. - Current Medication List Current Medications: Active Medications Acetaminophen (Ofirmev Injection -) 1,000 mg IVPB Q6H PRN PRN Reason: PAIN LEVEL 4 - 6 Last Admin: 07/08/19 19:08 Dose: 1,000 mg Albuterol/Ipratropium (Duoneb -) 1 amp NEB Q4H PRN PRN Reason: SHORTNESS OF BREATH Last Admin: 07/11/19 16:40 Dose: 1 amp Atorvastatin Calcium (Lipitor -) 10 mg PO HS [facility] Last Admin: 07/13/19 21:33 Dose: 10 mg Emollient Ointment (Aquaphor -) 1 applic TP BID [facility] Last Admin: 07/14/19 10:19 Dose: 1 applic Heparin Sodium (Porcine) (Heparin -) 5,000 unit SQ TID [facility] Last Admin: 07/14/19 06:08 Dose: 5,000 unit Piperacillin Sod/Tazobactam (Sod 2.25 gm/ Dextrose) 50 mls @ 100 mls/hr IVPB Q8H-IV [facility]; Protocol Last Admin: 07/14/19 10:19 Dose: 100 mls/hr Insulin Aspart (Novolog Vial Sliding Scale -) 1 vial SQ Q6H [facility]; Protocol Last Admin: 07/14/19 06:10 Dose: Not Given Pantoprazole Sodium (Protonix -) 40 mg PO BID [facility] Last Admin: 07/14/19 10:19 Dose: 40 mg Polyethylene Glycol (Miralax (For Daily Use) -) 17 gm PO DAILY [facility] Last Admin: 07/14/19 10:18 Dose: 17 gm Quinapril HCl (Accupril -) 40 mg PO DAILY [facility] Last Admin: 07/14/19 10:18 Dose: 40 mg - Objective Vital Signs: Vital Signs Temperature 99 F 07/14/19 06:00 Pulse Rate 73 07/14/19 06:00 Respiratory Rate 18 07/14/19 06:00 Blood Pressure 118/53 L 07/13/19 20:13 O2 Sat by Pulse Oximetry (%) 96 07/13/19 22:56 Constitutional: Yes: No Distress, Calm, Thin Neck: Yes: Supple Cardiovascular: Yes: Regular Rate and Rhythm Respiratory: Yes: Regular, Diminished, On Nasal O2 Gastrointestinal: Yes: Normal Bowel Sounds, Soft Edema: No Labs: CBC, BMP 07/14/19 06:37 07/14/19 06:37 INR, PTT INR 1.65 (0.83-1.09) H 07/03/19 01:04 Problem List - Problems (1) Septic shock Code(s): A41.9 - SEPSIS, UNSPECIFIED ORGANISM; R65.21 - SEVERE SEPSIS WITH SEPTIC SHOCK (2) Acute hypoxemic respiratory failure Code(s): J96.01 - ACUTE RESPIRATORY FAILURE WITH HYPOXIA (3) Demand ischemia Code(s): I24.8 - OTHER FORMS OF ACUTE ISCHEMIC HEART DISEASE (4) Hypercholesterolemia Code(s): E78.00 - PURE HYPERCHOLESTEROLEMIA, UNSPECIFIED (5) UTI (urinary tract infection) Code(s): N39.0 - URINARY TRACT INFECTION, SITE NOT SPECIFIED Qualifiers: Urinary tract infection type: site unspecified (6) JELANI (acute kidney injury) Code(s): N17.9 - ACUTE KIDNEY FAILURE, UNSPECIFIED Assessment/Plan 07/05/2019 Echocardiography reviewed. Moderate , pleural effusion, moderate TR 1. Acute hypoxemic respiratory failure post intubation and mechanical ventilation 2. Post septic shock LLL pneumonia and urosepsis 3. Hypercholesterolemia 4. Hypothyoidism 5. NIDDM 6. Cerebrovascular disease, h/o TIA 7. Organic brain/dementia 8. 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 Demand ischemia 10. JELANI due to septic shock 11. Moderate 12. Moderate TR 13. Pleural effusion 14. RUE brachial DVT PLAN: 1. Complete antibiotic coverage 2. DVT prophylaxis. GI prophylaxis, BD, O2 as needed 3. Resume Toprol XL 25 qd, continue Quinapril 40 mg QD and Atorvastatin 10 mg QHS as tolerated 4. Venofer per GI
[2019-07-14] MEDS ORDERED: INSULIN (NOVOLOG) ASPART 100 UNITS/ML 10ML VIAL ONE ×2 (12:02→23:36)
--- NOTE | 2019-07-14 12:31 | PN.GI ---
GI Progress Note Subjective: GI NOte: Hb has dropped as expected but no overt bleeding is reported. Heparin has been stopped. - Objective Vital Signs: Vital Signs Temperature 98 F 07/14/19 08:30 Pulse Rate 67 07/14/19 08:30 Respiratory Rate 20 07/14/19 08:30 Blood Pressure 132/60 07/14/19 08:30 O2 Sat by Pulse Oximetry (%) 98 07/14/19 10:00 Laboratory Tests 12/21/15 12/21/15 07/13/19 23:20 23:20 07:55 Hgb 9.5 L Iron 10 L TIBC 212 L Iron Saturation 5 L Ferritin 165.054 Unsaturated IBC Total Bilirubin AST ALT Alkaline Phosphatase Albumin 07/14/19 07/14/19 07/14/19 06:37 06:37 06:37 Hgb 8.4 L Iron 29 L TIBC 199 L Iron Saturation 14 L Ferritin 233.3 Unsaturated IBC 170 L Total Bilirubin 0.3 AST 32 ALT 33 Alkaline Phosphatase 207 H Albumin 2.0 L Constitutional: Anxious Gastrointestinal Inspection: Yes: Distention (but soft) ...Auscultate: Yes: Hypoactive Bowel Sounds ...Palpate: Yes: Soft, Other (nontender) Labs: CBC, BMP 07/14/19 06:37 07/14/19 06:37 INR, PTT INR 1.65 (0.83-1.09) H 07/03/19 01:04 Assessment/Plan Impression: -- Anemia due to chronic bleeding likely from multiple etiologies that include residual rectal prolapse repair site friablity, suspected small bowel vascular ectasias and possible large hiatal hernia [place] ulcers - Chronic GERD across a large hiatal hernia that has caused a Schatzki ring in the past. She is fortunately eating well. Plan: -- Follow CBCs -- Venofer as iron studies are mixed and saturation is low -- Pantoprazole BID -- Miralax Problem List - Problems (1) Anemia due to gastrointestinal blood loss Code(s): D50.0 - IRON DEFICIENCY ANEMIA SECONDARY TO BLOOD LOSS (CHRONIC) (2) Rectal mucosa prolapse Code(s): K62.3 - RECTAL PROLAPSE (3) Diverticulosis Code(s): K57.90 - DVRTCLOS OF INTEST, PART UNSP, W/O PERF OR ABSCESS W/O BLEED (4) Schatzki's ring of distal esophagus Code(s): K22.2 - ESOPHAGEAL OBSTRUCTION (5) Gastroesophageal reflux disease with hiatal hernia Code(s): K21.9 - GASTRO-ESOPHAGEAL REFLUX DISEASE WITHOUT ESOPHAGITIS; K44.9 - DIAPHRAGMATIC HERNIA WITHOUT OBSTRUCTION OR GANGRENE (6) Constipation Code(s): K59.00 - CONSTIPATION, UNSPECIFIED (7) Hypothyroidism Code(s): E03.9 - HYPOTHYROIDISM, UNSPECIFIED (8) Acute hypoxemic respiratory failure Code(s): J96.01 - ACUTE RESPIRATORY FAILURE WITH HYPOXIA (9) Demand ischemia Code(s): I24.8 - OTHER FORMS OF ACUTE ISCHEMIC HEART DISEASE (10) Dementia Code(s): F03.90 - UNSPECIFIED DEMENTIA WITHOUT BEHAVIORAL DISTURBANCE (11) Diabetes Code(s): E11.9 - TYPE 2 DIABETES MELLITUS WITHOUT COMPLICATIONS Qualifiers: Diabetes mellitus complication status: without complication
--- NOTE | 2019-07-14 13:50 | PN ---
Progress Note, Physician History of Present Illness: Pt seen and examined at bedside. PO intake remains poor. - Current Medication List Current Medications: Active Medications Acetaminophen (Ofirmev Injection -) 1,000 mg IVPB Q6H PRN PRN Reason: PAIN LEVEL 4 - 6 Last Admin: 07/08/19 19:08 Dose: 1,000 mg Albuterol/Ipratropium (Duoneb -) 1 amp NEB Q4H PRN PRN Reason: SHORTNESS OF BREATH Last Admin: 07/11/19 16:40 Dose: 1 amp Atorvastatin Calcium (Lipitor -) 10 mg PO HS [facility] Last Admin: 07/13/19 21:33 Dose: 10 mg Emollient Ointment (Aquaphor -) 1 applic TP BID [facility] Last Admin: 07/14/19 10:19 Dose: 1 applic Heparin Sodium (Porcine) (Heparin -) 5,000 unit SQ BID [facility] Piperacillin Sod/Tazobactam (Sod 2.25 gm/ Dextrose) 50 mls @ 100 mls/hr IVPB Q8H-IV [facility]; Protocol Last Admin: 07/14/19 10:19 Dose: 100 mls/hr Iron Sucrose 200 mg/ Sodium (Chloride) 100 mls @ 100 mls/hr IVPB ONCE ONE Stop: 07/14/19 14:59 Last Admin: 07/14/19 13:35 Dose: 100 mls/hr Insulin Aspart (Novolog Vial Sliding Scale -) 1 vial SQ Q6H [facility]; Protocol Last Admin: 07/14/19 12:20 Dose: 2 units Metoprolol Succinate (Toprol Xl -) 25 mg PO DAILY [facility] Pantoprazole Sodium (Protonix -) 40 mg PO BID [facility] Last Admin: 07/14/19 10:19 Dose: 40 mg Polyethylene Glycol (Miralax (For Daily Use) -) 17 gm PO DAILY [facility] Last Admin: 07/14/19 10:18 Dose: 17 gm Quinapril HCl (Accupril -) 40 mg PO DAILY [facility] Last Admin: 07/14/19 10:18 Dose: 40 mg - Objective Vital Signs: Vital Signs Temperature 98 F 07/14/19 08:30 Pulse Rate 67 07/14/19 08:30 Respiratory Rate 20 07/14/19 08:30 Blood Pressure 132/60 07/14/19 08:30 O2 Sat by Pulse Oximetry (%) 98 07/14/19 10:00 Constitutional: Yes: Calm Eyes: Yes: Conjunctiva Clear Cardiovascular: Yes: S1, S2 Respiratory: Yes: CTA Bilaterally Gastrointestinal: Yes: Soft Genitourinary: Yes: Incontinence Musculoskeletal: Yes: WNL Edema: No Neurological: Yes: Confusion Labs: CBC, BMP 07/14/19 06:37 07/14/19 06:37 INR, PTT INR 1.65 (0.83-1.09) H 07/03/19 01:04 Assessment/Plan Current Medications Generic Name Dose Route Start Last Admin Trade Name Freq PRN Reason Stop Dose Admin Acetaminophen 1,000 mg 07/08/19 18:54 07/08/19 19:08 Ofirmev Injection - IVPB 1,000 mg Q6H PRN Administration PAIN LEVEL 4 - 6 Albuterol/Ipratropium 1 amp 07/07/19 20:09 07/11/19 16:40 Duoneb - NEB 1 amp Q4H PRN Administration SHORTNESS OF BREATH Atorvastatin Calcium 10 mg 07/07/19 22:00 07/13/19 21:33 Lipitor - PO 10 mg HS [facility]IL[facility]INO Administration Emollient Ointment 1 applic 07/10/19 22:00 07/14/19 10:19 Aquaphor - TP 1 applic BID [facility] Administration Heparin Sodium (Porcine) 5,000 unit 07/14/19 22:00 Heparin - SQ BID [facility] Piperacillin Sod/Tazobactam 50 mls @ 100 mls/hr 07/08/19 02:00 07/14/19 10:19 Sod 2.25 gm/ Dextrose IVPB 100 mls/hr Q8H-IV [facility] Administration Protocol Iron Sucrose 200 mg/ Sodium 100 mls @ 100 mls/hr 07/14/19 14:00 07/14/19 13: 35 Chloride IVPB 07/14/19 14:59 100 mls/hr ONCE ONE Administration Insulin Aspart 1 vial 07/08/19 00:30 07/14/19 12:20 Novolog Vial Sliding Scale - SQ 2 units Q6H [facility] Administration Protocol Metoprolol Succinate 25 mg 07/15/19 10:00 Toprol Xl - PO DAILY [facility] Pantoprazole Sodium 40 mg 07/13/19 22:00 07/14/19 10:19 Protonix - PO 40 mg BID [facility] Administration Polyethylene Glycol 17 gm 07/14/19 10:00 07/14/19 10:18 Miralax (For Daily Use) - PO 17 gm DAILY [facility] Administration Quinapril HCl 40 mg 07/14/19 10:00 07/14/19 10:18 Accupril - PO 40 mg DAILY [facility] Administration 1. JELANI 2. Metabolic acidosis 3. Hypernatremia 4. Sepsis 5. Respiratory failure 6. Anemia 7. PNA 8. hypokalemia Plan - renal function stable - sodium stable - will follow prn - encourage po intake - monitor lytes - avoid nephrotoxins
--- NOTE | 2019-07-14 13:51 | PN ---
Physical Exam: SUBJECTIVE: Patient seen and examined. awake. nonverbal. no events overnight. Hgb dropped 9.5 to 8.4. OBJECTIVE: Vital Signs Period Temp Pulse Resp BP Sys/Tolentino Pulse Ox Last 24 Hr 97.8 F-99.5 F 67-88 18-22 118-148/53-78 96-98 GENERAL: in NAD, comfortable EYES: PERRL, sclera anicteric ENT: moist mucous membranes. NECK: supple. LUNGS: decreased breath sounds, no accessory muscle use. HEART: RRR ABDOMEN: Soft, nontender, nondistended, normoactive bowel sounds EXTREMITIES: 2+ pulses, no edema. Laboratory Results - last 24 hr 07/13/19 07/14/19 07/14/19 18:00 00:38 06:09 WBC RBC Hgb Hct MCV MCH MCHC RDW Plt Count MPV Absolute Neuts (auto) Neutrophils % Lymphocytes % Monocytes % Eosinophils % Basophils % Nucleated RBC % Retic Count Sodium Potassium Chloride Carbon Dioxide Anion Gap BUN Creatinine Est GFR (CKD-EPI)AfAm Est GFR (CKD-EPI)NonAf POC Glucometer 153 179 106 Random Glucose Calcium Iron TIBC Iron Saturation Unsaturated IBC Ferritin Total Bilirubin AST ALT Alkaline Phosphatase Total Protein Albumin 07/14/19 07/14/19 07/14/19 06:37 06:37 06:37 WBC 7.0 RBC 2.80 L Hgb 8.4 L Hct 24.7 L MCV 88.1 MCH 29.9 MCHC 34.0 RDW 14.7 Plt Count 358 MPV 7.4 L Absolute Neuts (auto) 5.3 Neutrophils % 76.5 Lymphocytes % 14.5 D Monocytes % 7.4 Eosinophils % 1.2 Basophils % 0.4 Nucleated RBC % 0 Retic Count 1.46 D Sodium 137 Potassium 4.0 Chloride 103 Carbon Dioxide 28 Anion Gap 6 L BUN 16.9 Creatinine 1.0 Est GFR (CKD-EPI)AfAm 57.84 Est GFR (CKD-EPI)NonAf 49.91 POC Glucometer Random Glucose 93 Calcium 7.8 L Iron TIBC Iron Saturation Unsaturated IBC Ferritin Total Bilirubin 0.3 AST 32 ALT 33 Alkaline Phosphatase 207 H Total Protein 5.5 L Albumin 2.0 L 07/14/19 07/14/19 06:37 12:00 WBC RBC Hgb Hct MCV MCH MCHC RDW Plt Count MPV Absolute Neuts (auto) Neutrophils % Lymphocytes % Monocytes % Eosinophils % Basophils % Nucleated RBC % Retic Count Sodium Potassium Chloride Carbon Dioxide Anion Gap BUN Creatinine Est GFR (CKD-EPI)AfAm Est GFR (CKD-EPI)NonAf POC Glucometer 193 Random Glucose Calcium Iron 29 L TIBC 199 L Iron Saturation 14 L Unsaturated IBC 170 L Ferritin 233.3 Total Bilirubin AST ALT Alkaline Phosphatase Total Protein Albumin Active Medications Generic Name Dose Route Start Last Admin Trade Name Freq PRN Reason Stop Dose Admin Acetaminophen 1,000 mg 07/08/19 18:54 07/08/19 19:08 Ofirmev Injection - IVPB 1,000 mg Q6H PRN Administration PAIN LEVEL 4 - 6 Albuterol/Ipratropium 1 amp 07/07/19 20:09 07/11/19 16:40 Duoneb - NEB 1 amp Q4H PRN Administration SHORTNESS OF BREATH Atorvastatin Calcium 10 mg 07/07/19 22:00 07/13/19 21:33 Lipitor - PO 10 mg HS [facility]INO Administration Emollient Ointment 1 applic 07/10/19 22:00 07/14/19 10:19 Aquaphor - TP 1 applic BID [facility] Administration Heparin Sodium (Porcine) 5,000 unit 07/14/19 22:00 Heparin - SQ BID [facility] Piperacillin Sod/Tazobactam 50 mls @ 100 mls/hr 07/08/19 02:00 07/14/19 10:19 Sod 2.25 gm/ Dextrose IVPB 100 mls/hr Q8H-IV [facility] Administration Protocol Iron Sucrose 200 mg/ Sodium 100 mls @ 100 mls/hr 07/14/19 14:00 07/14/19 13: 35 Chloride IVPB 07/14/19 14:59 100 mls/hr ONCE ONE Administration Insulin Aspart 1 vial 07/08/19 00:30 07/14/19 12:20 Novolog Vial Sliding Scale - SQ 2 units Q6H [facility] Administration Protocol Metoprolol Succinate 25 mg 07/15/19 10:00 Toprol Xl - PO DAILY [facility] Pantoprazole Sodium 40 mg 07/13/19 22:00 07/14/19 10:19 Protonix - PO 40 mg BID [facility] Administration Polyethylene Glycol 17 gm 07/14/19 10:00 07/14/19 10:18 Miralax (For Daily Use) - PO 17 gm DAILY [facility] Administration Quinapril HCl 40 mg 07/14/19 10:00 07/14/19 10:18 Accupril - PO 40 mg DAILY [facility] Administration ASSESSMENT/PLAN: #Septic shock secondary to Acute hypoxic respiratory failure secondary to pneumonia and E. 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 (07/04 and 07/08) -Pantoprazole BID -Start IV venofer -discharge on Iron -monitor h/h -hep drip stopped from drop in hemoglobin. #Right arm DVT -off heparin drip due to drop in hgb and likely bleed -+FOBT -repeat cbc stable, no evidence of hemodynamic instability -no heparin at this time #Acute kidney injury secondary to hypoperfusion-resolved #Demand ischemia #Hypernatremia-resolved #Hypokalemia-resolved #Hypophosphatemia-resolved #Type 2 DM #HTN #HLD #History of TIA- holding asa in light of GIB on heparin #Dvt ppx -start hep sq TID Visit type - Emergency Visit Emergency Visit: Yes ED Registration Date: 07/03/19 Care time: The patient presented to the Emergency Department on the above date and was hospitalized for further evaluation of their emergent condition. - New Patient This patient is new to me today: Yes Date on this admission: 07/14/19 - Critical Care Critical Care patient: No ATTENDING PHYSICIAN STATEMENT I saw and evaluated the patient. I reviewed the resident's note and discussed the case with the resident. I agree with the resident's findings and plan as documented. SUBJECTIVE: OBJECTIVE: ASSESSMENT AND PLAN:
[2019-07-14] MEDS ORDERED: IRON SUCROSE INJECTION 200 MG in SODIUM CHLORIDE 90 ML IVPB ONE (14:00)
--- NOTE | 2019-07-14 14:03 | PN ---
Progress Note, FINISHED GOODS STOCK CLERK - Note Progress Note: Full code Per GI-Chronic GERD across a large hiatal hernia that has caused a Schatzki ring in the past. She is fortunately eating well. Pt on puree/honey thick liquid Selected Entries 07/13/19 07/13/19 07/13/19 06:00 10:00 15:08 Breakfast 75% Lunch 75% Supper Temperature 98.8 F 98.1 F 97.8 F 07/13/19 07/13/19 07/13/19 16:20 18:30 20:13 Breakfast Lunch Supper 100% Temperature 98.2 F 99.5 F 07/13/19 07/14/19 07/14/19 22:51 06:00 08:30 Breakfast Lunch Supper 100% Temperature 99 F 98 F 07/14/19 07/14/19 10:43 13:32 Breakfast 100% Lunch 50% Supper Temperature Laboratory Tests 07/13/19 07/14/19 07:55 06:37 WBC 7.8 7.0
--- NOTE | 2019-07-14 17:40 | PN ---
Progress Note (short form) - Note Progress Note: HPI 89 year old female history of dementia, HTN, HLD, hypothyroidism, anemia, TIA, and NIDDM came to hospital for respiratory failure, septicemia and she was intubated and extubated. She remains to confused and non verbal. Patient has not had any ct head. She has history of dementia and resident of [place]. Patient is not in any distress. I spoke to nursing staff. She is afebrile and no acut edistress. no new complain, she is non verbal. NEUROLOGICAL EXAMIANTION Alert ,oriented x 0, aphasic , not able to communicate eomi, pupils reactive no face asymmetry withdraws extremity to pain ct head no acute findings, and no interval change Assessment/Plan 89 year old female history of dementia, HTN, HLD, hypothyroidism, anemia, TIA, and NIDDM came to hospital for pneumonia, and septicemia. She was in icu , inutbated and extubated. Now has worse mental status than before. Unlikely to be meningitis. Patient was able to eat today. Suspect component of critical illness encephalopathy as well. Plan: continue pt, supportive care - ct head reviewed, no acute findings - waiting for placement , would go to [facility] tomorrow am Thanking you so much David Paris MD
--- NOTE | 2019-07-14 18:26 | PN ---
Teaching Attending Note Name of Resident: Joanne Fields ATTENDING PHYSICIAN STATEMENT I saw and evaluated the patient. I reviewed the resident's note and discussed the case with the resident. I agree with the resident's findings and plan as documented. SUBJECTIVE: Seen and examined, doing well, eating well. OBJECTIVE: Vital Signs - 24 hr 07/13/19 07/13/19 07/13/19 20:13 22:53 22:56 Temperature 99.5 F Pulse Rate 88 Respiratory 18 18 Rate Blood Pressure 118/53 L O2 Sat by Pulse 96 96 Oximetry (%) 07/14/19 07/14/19 07/14/19 06:00 08:30 09:00 Temperature 99 F 98 F Pulse Rate 73 67 Respiratory 18 20 Rate Blood Pressure 132/60 O2 Sat by Pulse 98 Oximetry (%) 07/14/19 07/14/19 10:00 14:59 Temperature 97.9 F Pulse Rate 85 Respiratory 20 Rate Blood Pressure 139/77 O2 Sat by Pulse 98 Oximetry (%) PE: Constitutional: Yes: No Distress Cardiovascular: Yes: WNL, Regular Rate and Rhythm Respiratory: Yes: WNL, Regular, CTA Bilaterally. No: Cough Gastrointestinal: Yes: WNL, Normal Bowel Sounds, Soft Extremities: Yes: Other (heel foam pads, bilateral upper extremities less edematous, ecchymotic) Edema: No edema Current Medications Acetaminophen (Ofirmev Injection -) 1,000 mg IVPB Q6H PRN PRN Reason: PAIN LEVEL 4 - 6 Last Admin: 07/08/19 19:08 Dose: 1,000 mg Albuterol/Ipratropium (Duoneb -) 1 amp NEB Q4H PRN PRN Reason: SHORTNESS OF BREATH Last Admin: 07/11/19 16:40 Dose: 1 amp Atorvastatin Calcium (Lipitor -) 10 mg PO HS [facility] Last Admin: 07/13/19 21:33 Dose: 10 mg Emollient Ointment (Aquaphor -) 1 applic TP BID [facility] Last Admin: 07/14/19 10:19 Dose: 1 applic Heparin Sodium (Porcine) (Heparin -) 5,000 unit SQ BID [facility] Piperacillin Sod/Tazobactam (Sod 2.25 gm/ Dextrose) 50 mls @ 100 mls/hr IVPB Q8H-IV [facility]; Protocol Last Admin: 01/15/20 17:32 Dose: 100 mls/hr Insulin Aspart (Novolog Vial Sliding Scale -) 1 vial SQ Q6H [facility]; Protocol Last Admin: 07/14/19 17:48 Dose: Not Given Metoprolol Succinate (Toprol Xl -) 25 mg PO DAILY [facility] Pantoprazole Sodium (Protonix -) 40 mg PO BID [facility] Last Admin: 07/14/19 10:19 Dose: 40 mg Polyethylene Glycol (Miralax (For Daily Use) -) 17 gm PO DAILY [facility] Last Admin: 07/14/19 10:18 Dose: 17 gm Quinapril HCl (Accupril -) 40 mg PO DAILY [facility] Last Admin: 07/14/19 10:18 Dose: 40 mg Laboratory Results - last 24 hr 07/14/19 07/14/19 07/14/19 00:38 06:09 06:37 WBC 7.0 RBC 2.80 L Hgb 8.4 L Hct 24.7 L MCV 88.1 MCH 29.9 MCHC 34.0 RDW 14.7 Plt Count 358 MPV 7.4 L Absolute Neuts (auto) 5.3 Neutrophils % 76.5 Lymphocytes % 14.5 D Monocytes % 7.4 Eosinophils % 1.2 Basophils % 0.4 Nucleated RBC % 0 Retic Count Sodium Potassium Chloride Carbon Dioxide Anion Gap BUN Creatinine Est GFR (CKD-EPI)AfAm Est GFR (CKD-EPI)NonAf POC Glucometer 179 106 Random Glucose Calcium Iron TIBC Iron Saturation Unsaturated IBC Ferritin Total Bilirubin AST ALT Alkaline Phosphatase Total Protein Albumin 07/14/19 07/14/19 07/14/19 06:37 06:37 06:37 WBC RBC Hgb Hct MCV MCH MCHC RDW Plt Count MPV Absolute Neuts (auto) Neutrophils % Lymphocytes % Monocytes % Eosinophils % Basophils % Nucleated RBC % Retic Count 1.46 D Sodium 137 Potassium 4.0 Chloride 103 Carbon Dioxide 28 Anion Gap 6 L BUN 16.9 Creatinine 1.0 Est GFR (CKD-EPI)AfAm 57.84 Est GFR (CKD-EPI)NonAf 49.91 POC Glucometer Random Glucose 93 Calcium 7.8 L Iron 29 L TIBC 199 L Iron Saturation 14 L Unsaturated IBC 170 L Ferritin 233.3 Total Bilirubin 0.3 AST 32 ALT 33 Alkaline Phosphatase 207 H Total Protein 5.5 L Albumin 2.0 L 07/14/19 07/14/19 12:00 17:46 WBC RBC Hgb Hct MCV MCH MCHC RDW Plt Count MPV Absolute Neuts (auto) Neutrophils % Lymphocytes % Monocytes % Eosinophils % Basophils % Nucleated RBC % Retic Count Sodium Potassium Chloride Carbon Dioxide Anion Gap BUN Creatinine Est GFR (CKD-EPI)AfAm Est GFR (CKD-EPI)NonAf POC Glucometer 193 122 Random Glucose Calcium Iron TIBC Iron Saturation Unsaturated IBC Ferritin Total Bilirubin AST ALT Alkaline Phosphatase Total Protein Albumin ASSESSMENT AND PLAN: 89 year old woman with a history of HTN, hyperlipidemia, type 2 DM, anemia, TIA , dementia who presented to the ED with respiratory distress. 1. Septic shock secondary to Acute hypoxic respiratory failure secondary to pneumonia and E. faecalis UTI -extubated 07/06/19 -c/w zosyn-day 7, DC in AM -blood cx neg -ID eval 2. NC Anemia -transfused PRBCs 07/04 and on 07/08 -monitor h/h +FOBT after being placed on hep for right arm DVT -hep gtt stopped -PPI -GI following 3. Right arm DVT -off hep gtt due to GIB -repeat cbc stable, no evidence of hemodynamic instability -no heparin at this time JELANI-resolved Demand ischemia-resolved Hypernatremia-resolved Hypokalemia-resolved Hypophosphatemia-resolved Type 2 DM HTN HLD History of TIA-holding asa in light of GIB on heparin, restart in AM if h/h stable and monitor counts at rehab -cw current regimen Problem List - Problems (1) Acute hypoxemic respiratory failure Code(s): J96.01 - ACUTE RESPIRATORY FAILURE WITH HYPOXIA (2) Demand ischemia Code(s): I24.8 - OTHER FORMS OF ACUTE ISCHEMIC HEART DISEASE (3) Hypercholesterolemia Code(s): E78.00 - PURE HYPERCHOLESTEROLEMIA, UNSPECIFIED (4) NSTEMI (non-ST elevated myocardial infarction) Code(s): I21.4 - NON-ST ELEVATION (NSTEMI) MYOCARDIAL INFARCTION (5) Respiratory failure Code(s): J96.90 - RESPIRATORY FAILURE, UNSP, UNSP W HYPOXIA OR HYPERCAPNIA (6) Septic shock Code(s): A41.9 - SEPSIS, UNSPECIFIED ORGANISM; R65.21 - SEVERE SEPSIS WITH SEPTIC SHOCK (7) JELANI (acute kidney injury) Code(s): N17.9 - ACUTE KIDNEY FAILURE, UNSPECIFIED (8) Acute urinary tract infection Code(s): N39.0 - URINARY TRACT INFECTION, SITE NOT SPECIFIED (9) Dehydration Code(s): E86.0 - DEHYDRATION (10) Dementia Code(s): F03.90 - UNSPECIFIED DEMENTIA WITHOUT BEHAVIORAL DISTURBANCE (11) Generalized weakness Code(s): R53.1 - WEAKNESS (12) Hypertension Code(s): I10 - ESSENTIAL (PRIMARY) HYPERTENSION (13) Anemia Code(s): D64.9 - ANEMIA, UNSPECIFIED (14) Diabetes Code(s): E11.9 - TYPE 2 DIABETES MELLITUS WITHOUT COMPLICATIONS Qualifiers: Diabetes mellitus complication status: without complication
[2019-07-14] MEDS: ATORVASTATIN CA 10 MG TABLET (FP) PO SCH (23:04)
[2019-07-15] MEDS: INSULIN SLIDING SCALE (NOVOLOG) 1 VIAL SQ SCH ×5 (00:51→23:32)
[2019-07-15] MEDS ORDERED: DEXTROSE 5%-WATER - 50 ML IVPB ONE ×2 (02:03→09:31)
[2019-07-15] MEDS ORDERED: PIPERACILLIN/TAZOBACTAM 2.25 GM VIAL IVPB ONE ×2 (02:03→09:30)
[2019-07-15] MEDS: PIPERACILLIN/TAZOB 2.25 GM 2.25 GM in DEXTROSE 5%-WATER - 50 ML IVPB SCH ×2 (02:18→09:32)
[2019-07-15 07:40] LABS: BASO % 0.7 % (0-2.0); EOS % 1.3 % (0-4.5); HEMATOCRIT 27.3 % (32.4-45.2); HEMOGLOBIN 9.3 GM/dL (10.7-15.3); LYMPH % 17.1 % (8-40); MCHC 33.9 g/dl (32.0-36.0); MEAN CELL VOLUME 88.5 fl (80-96); MEAN PLT VOLUME 7.3 fl (7.5-11.1); NEUT % 71.9 % (42.8-82.8); PLATELET COUNT 427 K/MM3 (134-434); RBC 3.09 M/mm3 (3.60-5.2); RDW 14.6 % (11.6-15.6); WHITE BLOOD COUNT 5.7 K/mm3 (4.0-10.0)
[2019-07-15 08:07] LABS: ALBUMIN 2.3 g/dl (3.4-5.0); BILIRUBIN,TOTAL 0.4 mg/dL (0.2-1); BLOOD UREA NITROGEN 15.7 mg/dL (7-18); CALCIUM 8.4 mg/dL (8.5-10.1); CREATININE 0.9 mg/dL (0.55-1.3); POTASSIUM 4.2 mmol/L (3.5-5.1)
--- NOTE | 2019-07-15 09:20 | PN ---
Progress Note (short form) - Note Progress Note: HPI 89 year old female history of dementia, HTN, HLD, hypothyroidism, anemia, TIA, and NIDDM came to hospital for respiratory failure, septicemia and she was intubated and extubated. She remains to confused and non verbal. Patient has not had any ct head. She has history of dementia and resident of [place]. Patient is not in any distress. I spoke to nursing staff. She is afebrile and no acut edistress. no new complain, she is non verbal. waiting for placement NEUROLOGICAL EXAMIANTION Alert ,oriented x 0, aphasic , not able to communicate eomi, pupils reactive no face asymmetry withdraws extremity to pain ct head no acute findings, and no interval change Assessment/Plan 89 year old female history of dementia, HTN, HLD, hypothyroidism, anemia, TIA, and NIDDM came to hospital for pneumonia, and septicemia. She was in icu , inutbated and extubated. Now has worse mental status than before. Unlikely to be meningitis. Patient was able to eat today. Suspect component of critical illness encephalopathy as well. Plan: continue pt, supportive care - ct head reviewed, no acute findings - waiting for placement , may go to [place] today. Thanking you so much David Paris MD
[2019-07-15] MEDS: metoPROLOL SUCCINATE 25 MG TAB.SR.24H (FP) PO SCH (09:32)
[2019-07-15] MEDS: PANTOPRAZOLE 40 MG TABLET PO SCH ×2 (09:32→23:20)
[2019-07-15] MEDS: HEPARIN NA (PORCINE) 5,000 UNITS/ML 1ML VIAL SQ SCH ×2 (09:32→23:20)
[2019-07-15] MEDS: QUINAPRIL HCL 40 MG TABLET (FP) PO SCH (09:32)
[2019-07-15] MEDS: MINERAL OIL/PET HY-PHL TOPICAL OINTMENT 454 GM JAR TP SCH ×2 (09:33→23:21)
[2019-07-15] MEDS: POLYETHYLENE GLYCOL 3350 119 GM BTL PO SCH (09:35)
[2019-07-15] MEDS: LEVOTHYROXINE NA 75 MCG TABLET (FP) PO SCH (09:49)
--- NOTE | 2019-07-15 10:03 | PN ---
Progress Note (short form) - Note Progress Note: PULMONARY Pt awake, nonverbal. No fevers recorded. Vital Signs Period Temp Pulse Resp BP Sys/Tolentino Pulse Ox Last 24 Hr 97.9 F-99.4 F 77-85 20-20 135-149/65-77 95-95 Gen: NAD at rest Heart: RRR Lung: decreased breath sounds at the bases Abd: soft, nontender Ext: no edema CBC, BMP 07/15/19 06:43 07/15/19 06:43 Active Medications Acetaminophen (Ofirmev Injection -) 1,000 mg IVPB Q6H PRN PRN Reason: PAIN LEVEL 4 - 6 Last Admin: 07/08/19 19:08 Dose: 1,000 mg Albuterol/Ipratropium (Duoneb -) 1 amp NEB Q4H PRN PRN Reason: SHORTNESS OF BREATH Last Admin: 07/11/19 16:40 Dose: 1 amp Atorvastatin Calcium (Lipitor -) 10 mg PO HS [facility] Last Admin: 07/14/19 23:04 Dose: 10 mg Emollient Ointment (Aquaphor -) 1 applic TP BID [facility] Last Admin: 07/15/19 09:33 Dose: 1 applic Heparin Sodium (Porcine) (Heparin -) 5,000 unit SQ BID [facility] Last Admin: 07/15/19 09:32 Dose: 5,000 unit Piperacillin Sod/Tazobactam (Sod 2.25 gm/ Dextrose) 50 mls @ 100 mls/hr IVPB Q8H-IV [facility]; Protocol Last Admin: 07/15/19 09:32 Dose: 100 mls/hr Insulin Aspart (Novolog Vial Sliding Scale -) 1 vial SQ Q6H [facility]; Protocol Last Admin: 07/15/19 05:45 Dose: Not Given Levothyroxine Sodium (Synthroid -) 75 mcg PO DAILY@0700 [facility] Last Admin: 07/15/19 09:49 Dose: 75 mcg Metoprolol Succinate (Toprol Xl -) 25 mg PO DAILY [facility] Last Admin: 07/15/19 09:32 Dose: 25 mg Pantoprazole Sodium (Protonix -) 40 mg PO BID [facility] Last Admin: 07/15/19 09:32 Dose: 40 mg Polyethylene Glycol (Miralax (For Daily Use) -) 17 gm PO DAILY [facility] Last Admin: 07/15/19 09:35 Dose: Not Given Quinapril HCl (Accupril -) 40 mg PO DAILY [facility] Last Admin: 07/15/19 09:32 Dose: 40 mg A/P Acute Hypoxic Respiratory Failure improving Pneumonia UTI Bacteremia Septic Shock resolving Acute Kidney Injury improving Lactic Acidosis +Troponins likely Demand Ischemia Aortic Stenosis Pulmonary HTN DM Hypothyroidism Hypercholesterolemia h/o CVA Dementia Anemia - complete antibiotics - inhaled bronchodilators - O2 to keep SpO2 >90% - monitor urine output, creatinine - aspiration precautions - DVT/GI prophylaxis
--- NOTE | 2019-07-15 10:25 | PN ---
Progress Note, Physician History of Present Illness: Lethargic afebrile, nonverbal. Heparin gtt dced due to anemia and +FOBT. GI input appreciated. - Current Medication List Current Medications: Active Medications Acetaminophen (Ofirmev Injection -) 1,000 mg IVPB Q6H PRN PRN Reason: PAIN LEVEL 4 - 6 Last Admin: 07/08/19 19:08 Dose: 1,000 mg Albuterol/Ipratropium (Duoneb -) 1 amp NEB Q4H PRN PRN Reason: SHORTNESS OF BREATH Last Admin: 07/11/19 16:40 Dose: 1 amp Atorvastatin Calcium (Lipitor -) 10 mg PO HS [facility] Last Admin: 07/14/19 23:04 Dose: 10 mg Emollient Ointment (Aquaphor -) 1 applic TP BID [facility] Last Admin: 07/15/19 09:33 Dose: 1 applic Heparin Sodium (Porcine) (Heparin -) 5,000 unit SQ BID [facility] Last Admin: 07/15/19 09:32 Dose: 5,000 unit Piperacillin Sod/Tazobactam (Sod 2.25 gm/ Dextrose) 50 mls @ 100 mls/hr IVPB Q8H-IV [facility]; Protocol Last Admin: 07/15/19 09:32 Dose: 100 mls/hr Insulin Aspart (Novolog Vial Sliding Scale -) 1 vial SQ Q6H [facility]; Protocol Last Admin: 07/15/19 05:45 Dose: Not Given Levothyroxine Sodium (Synthroid -) 75 mcg PO DAILY@0700 [facility] Last Admin: 07/15/19 09:49 Dose: 75 mcg Metoprolol Succinate (Toprol Xl -) 25 mg PO DAILY [facility] Last Admin: 07/15/19 09:32 Dose: 25 mg Pantoprazole Sodium (Protonix -) 40 mg PO BID [facility] Last Admin: 07/15/19 09:32 Dose: 40 mg Polyethylene Glycol (Miralax (For Daily Use) -) 17 gm PO DAILY [facility] Last Admin: 07/15/19 09:35 Dose: Not Given Quinapril HCl (Accupril -) 40 mg PO DAILY [facility] Last Admin: 07/15/19 09:32 Dose: 40 mg - Objective Vital Signs: Vital Signs Temperature 98.8 F 07/15/19 06:00 Pulse Rate 77 07/15/19 06:00 Respiratory Rate 20 07/15/19 06:00 Blood Pressure 149/65 07/15/19 06:00 O2 Sat by Pulse Oximetry (%) 95 07/14/19 22:00 Constitutional: Yes: No Distress, Calm, Mild Distress Neck: Yes: Supple Cardiovascular: Yes: Regular Rate and Rhythm Respiratory: Yes: Regular, Diminished Gastrointestinal: Yes: Normal Bowel Sounds, Soft Edema: No Labs: CBC, BMP 07/15/19 06:43 07/15/19 06:43 INR, PTT INR 1.65 (0.83-1.09) H 07/03/19 01:04 Problem List - Problems (1) Septic shock Code(s): A41.9 - SEPSIS, UNSPECIFIED ORGANISM; R65.21 - SEVERE SEPSIS WITH SEPTIC SHOCK (2) Acute hypoxemic respiratory failure Code(s): J96.01 - ACUTE RESPIRATORY FAILURE WITH HYPOXIA (3) Demand ischemia Code(s): I24.8 - OTHER FORMS OF ACUTE ISCHEMIC HEART DISEASE (4) Hypercholesterolemia Code(s): E78.00 - PURE HYPERCHOLESTEROLEMIA, UNSPECIFIED (5) UTI (urinary tract infection) Code(s): N39.0 - URINARY TRACT INFECTION, SITE NOT SPECIFIED Qualifiers: Urinary tract infection type: site unspecified (6) JELANI (acute kidney injury) Code(s): N17.9 - ACUTE KIDNEY FAILURE, UNSPECIFIED Assessment/Plan 07/05/2019 Echocardiography reviewed. Moderate , pleural effusion, moderate TR 1. Acute hypoxemic respiratory failure post intubation and mechanical ventilation 2. Post septic shock LLL pneumonia and urosepsis 3. Hypercholesterolemia 4. Hypothyoidism 5. NIDDM 6. Cerebrovascular disease, h/o TIA 7. Organic brain/dementia 8. 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 Demand ischemia 10. JELANI due to septic shock improving 11. Moderate 12. Moderate TR 13. Pleural effusion 14. RUE brachial DVT PLAN: 1. Completed antibiotic coverage, observe off 2. DVT prophylaxis. GI prophylaxis, BD, O2 as needed 3. Continue Toprol XL 25 qd, Quinapril 40 mg QD and Atorvastatin 10 mg QHS as tolerated 4. Venofer per GI
--- NOTE | 2019-07-15 11:34 | PN ---
Progress Note, Physician History of Present Illness: AWAKE, NOT VERBALY RESPONSIVE AFEBRILE BREATHING NON-LABORED - Current Medication List Current Medications: Active Medications Acetaminophen (Ofirmev Injection -) 1,000 mg IVPB Q6H PRN PRN Reason: PAIN LEVEL 4 - 6 Last Admin: 07/08/19 19:08 Dose: 1,000 mg Albuterol/Ipratropium (Duoneb -) 1 amp NEB Q4H PRN PRN Reason: SHORTNESS OF BREATH Last Admin: 07/11/19 16:40 Dose: 1 amp Atorvastatin Calcium (Lipitor -) [address] [facility] Last Admin: 07/14/19 23:04 Dose: 10 mg Emollient Ointment (Aquaphor -) [address] [facility] Last Admin: 07/15/19 09:33 Dose: 1 applic Heparin Sodium (Porcine) (Heparin -) 5,[address] [facility] Last Admin: 07/15/19 09:32 Dose: 5,000 unit Piperacillin Sod/Tazobactam (Sod 2.25 gm/ Dextrose) 50 mls @ 100 mls/hr IVPB Q8H-IV [facility]; Protocol Last Admin: 07/15/19 09:32 Dose: 100 mls/hr Insulin Aspart (Novolog Vial Sliding Scale -) [address] [facility]; Protocol Last Admin: 07/15/19 05:45 Dose: Not Given Levothyroxine Sodium (Synthroid -) 75 mcg PO DAILY@0700 [facility] Last Admin: 07/15/19 09:49 Dose: 75 mcg Metoprolol Succinate (Toprol Xl -) [address] [facility] Last Admin: 07/15/19 09:32 Dose: 25 mg Pantoprazole Sodium (Protonix -) [address] [facility] Last Admin: 07/15/19 09:32 Dose: 40 mg Polyethylene Glycol (Miralax (For Daily Use) -) [address] [facility] Last Admin: 07/15/19 09:35 Dose: Not Given Quinapril HCl (Accupril -) [address] [facility] Last Admin: 07/15/19 09:32 Dose: 40 mg - Objective Vital Signs: Vital Signs Temperature 98.8 F 07/15/19 06:00 Pulse Rate 77 07/15/19 06:00 Respiratory Rate 20 07/15/19 06:00 Blood Pressure 149/65 07/15/19 06:00 O2 Sat by Pulse Oximetry (%) 95 07/14/19 22:00 Constitutional: Yes: No Distress Eyes: Yes: Conjunctiva Clear Cardiovascular: Yes: Regular Rate and Rhythm, S1, S2 Respiratory: Yes: CTA Bilaterally Gastrointestinal: Yes: Normal Bowel Sounds, Soft. No: Tenderness Edema: No Labs: CBC, BMP 07/15/19 06:43 07/15/19 06:43 INR, PTT INR 1.65 (0.83-1.09) H 07/03/19 01:04 Assessment/Plan ACUTE RESPIRATORY FAILURE S/P EXTUBATION LLL PNEUMONIA SEPSIS/SEPTIC SHOCK RESOLVED +BC SCN C/W CONTAMINATION UTI LACTIC ACIDOSIS RESOLVED RENAL FAILURE RESOLVED ANEMIA THROMBOCYTOPENIA RESOLVED HYPERNATREMIA D/C ANTIBIOTICS, OBSERVE OFF
--- NOTE | 2019-07-15 12:00 | DS ---
Physical Exam: SUBJECTIVE: Patient seen and examined. Hgb stable this am. up to 9.3 OBJECTIVE: Vital Signs Period Temp Pulse Resp BP Sys/Tolentino Pulse Ox Last 24 Hr 97.9 F-99.4 F 77-85 20-20 135-149/65-77 95-95 PHYSICAL EXAM GENERAL: in NAD, nonverbal EYES: PERRL, sclera anicteric ENT: moist mucous membranes. NECK: supple. LUNGS: decreased breath sounds, no accessory muscle use. HEART: RRR ABDOMEN: Soft, nontender, nondistended, normoactive bowel sounds EXTREMITIES: 2+ pulses, no edema. LABS Laboratory Results - last 24 hr 07/14/19 07/14/19 07/14/19 12:00 17:46 23:53 WBC RBC Hgb Hct MCV MCH MCHC RDW Plt Count MPV Absolute Neuts (auto) Neutrophils % Lymphocytes % Monocytes % Eosinophils % Basophils % Nucleated RBC % Sodium Potassium Chloride Carbon Dioxide Anion Gap BUN Creatinine Est GFR (CKD-EPI)AfAm Est GFR (CKD-EPI)NonAf POC Glucometer 193 122 119 Random Glucose Calcium Total Bilirubin AST ALT Alkaline Phosphatase Total Protein Albumin 07/15/19 07/15/19 07/15/19 05:44 06:43 06:43 WBC 5.7 RBC 3.09 L Hgb 9.3 L Hct 27.3 L MCV 88.5 MCH 30.0 MCHC 33.9 RDW 14.6 Plt Count 427 MPV 7.3 L Absolute Neuts (auto) 4.1 Neutrophils % 71.9 Lymphocytes % 17.1 Monocytes % 9.0 Eosinophils % 1.3 Basophils % 0.7 Nucleated RBC % 0 Sodium 137 Potassium 4.2 Chloride 103 Carbon Dioxide 29 Anion Gap 5 L BUN 15.7 Creatinine 0.9 Est GFR (CKD-EPI)AfAm 65.70 Est GFR (CKD-EPI)NonAf 56.69 POC Glucometer 116 Random Glucose 119 H Calcium 8.4 L Total Bilirubin 0.4 AST 29 ALT 33 Alkaline Phosphatase 209 H Total Protein 6.0 L Albumin 2.3 L 07/15/19 11:22 WBC RBC Hgb Hct MCV MCH MCHC RDW Plt Count MPV Absolute Neuts (auto) Neutrophils % Lymphocytes % Monocytes % Eosinophils % Basophils % Nucleated RBC % Sodium Potassium Chloride Carbon Dioxide Anion Gap BUN Creatinine Est GFR (CKD-EPI)AfAm Est GFR (CKD-EPI)NonAf POC Glucometer 132 Random Glucose Calcium Total Bilirubin AST ALT Alkaline Phosphatase Total Protein Albumin HOSPITAL COURSE: Date of Admission:07/03/19 #Septic shock secondary to Acute hypoxic respiratory failure secondary to pneumonia and E. faecalis UTI -resolved -extubated 07/06/19 -Completed 8 days of IV antibiotics - Zosyn -blood cx neg -remains full code -no antibiotics on discharge. #Iron def Anemia -likely due to chronic bleeding likely from multiple etiologies that include residual rectal prolapse repair site friablity, suspected small bowel vascular ectasias and possible large hiatal hernia [place] ulcers per GI -s/p 2 Units PRBC. (07/04 and 07/08) -hgb stable -Pantoprazole BID -venofer x 1 -discharge on Iron -monitor h/h -hep drip stopped from drop in hemoglobin. but continue dvt ppx with heparin #Right arm DVT -off heparin drip due to drop in hgb and likely bleed -+FOBT -repeat cbc stable, no evidence of hemodynamic instability -no heparin at this time #Acute kidney injury secondary to hypoperfusion-resolved #Demand ischemia #Hypernatremia-resolved #Hypokalemia-resolved #Hypophosphatemia-resolved #Type 2 DM #HTN #HLD #History of TIA- cont. asa on discharge #Dvt ppx -hep sq TID Date of Discharge: 07/15/19 Minutes to complete discharge: 35 Discharge Summary Problems reviewed: Yes Reason For Visit: RESPIRATORY DISTRESS Current Active Problems Acute hypoxemic respiratory failure (Acute) Anemia due to gastrointestinal blood loss (Acute) Constipation (Acute) Demand ischemia (Acute) Diverticulosis (Acute) Gastroesophageal reflux disease with hiatal hernia (Acute) Hypercholesterolemia (Acute) Hypothyroidism (Acute) NSTEMI (non-ST elevated myocardial infarction) (Acute) Rectal mucosa prolapse (Acute) Respiratory failure (Acute) Schatzki's ring of distal esophagus (Acute) Septic shock (Acute) Condition: Improved - Instructions Diet, Activity, Other Instructions: You were admitted to the hospital because you had trouble breathing and was in septic shock. We treated you with antibiotics through the IV for 8 days (zosyn). You were found to have a blood clot in your Right Arm. You were started on a blood thinner for the blood clot but it was stopped because we we were suspicious that you are bleeding somewhere in your intestines. Please follow up with the GI doctor to determine when it is OK to resume the blood thinners. It is ok for you to take Aspirin. Please repeat CBC in 2 days. Please follow up with your primary care doctor in 1 week. Follow up with your GI doctor in 1 week. Follow up with your chief physical therapist in 2 weeks Referrals: Rosa Greenwood MD [Staff Physician] - 1 Week Beka Weller MD [Primary Care Provider] - 1 Week Cordell Bermudez MD [Staff Physician] - 2 Weeks [facility]position: [facility] - Home Medications Comprehensive Discharge Medication List: Ambulatory Orders Levothyroxine [Synthroid -] 75 mcg PO DAILY #0 tablet 06/14/13 Metoprolol Succinate [Toprol XL -] 25 mg PO DAILY #0 tab.sr.24h 06/14/13 Multivit-Min/FA/Lycopene/Lut [Centrum Silver Tablet] 1 each PO DAILY #0 tablet 06/14/13 Quinapril HCl [Accupril -] 40 mg PO DAILY #0 tablet 06/14/13 Ascorbic Acid [Vitamin C -] 500 mg PO DAILY #30 tablet 06/20/14 Alprazolam [Xanax] 2 tablet PO HS 01/22/16 Aspirin [ASA -] 81 mg PO DAILY 01/22/16 Cyanocobalamin (Vitamin B-12) [Vitamin B12] 5,000 mcg PO DAILY 01/22/16 Ibuprofen/Diphenhydramine Cit [Advil Pm Caplet] 1 each PO HS PRN 01/22/16 Memantine HCl [Namenda -] 20 mg PO HS 01/22/16 Metformin HCl [Riomet] 750 mg PO BID 01/22/16 Cephalexin [Keflex] 500 mg PO BID #14 capsule 04/18/19 This patient is new to me today: Yes Date on this admission: 07/15/19 Emergency Visit: Yes ED Registration Date: 07/03/19 Care time: The patient presented to the Emergency Department on the above date and was hospitalized for further evaluation of their emergent condition. Critical Care patient: No - Discharge Referral Referred to [facility] Med P.C.: No ATTENDING PHYSICIAN STATEMENT I saw and evaluated the patient. I reviewed the resident's note and discussed the case with the resident. I agree with the resident's findings and plan as documented. SUBJECTIVE: OBJECTIVE: ASSESSMENT AND PLAN:
[2019-07-15 13:08] LABS: TRANSGLUTAMINASE IGA < 2 U/mL (0-3); TRANSGLUTAMINASE IGG < 2 U/mL (0-5)
--- NOTE | 2019-07-15 15:00 | PN ---
Progress Note, Physician History of Present Illness: Pt seen and examined. She appears comfortable. - Current Medication List Current Medications: Active Medications Albuterol/Ipratropium (Duoneb -) 1 amp NEB Q4H PRN PRN Reason: SHORTNESS OF BREATH Last Admin: 07/11/19 16:40 Dose: 1 amp Atorvastatin Calcium (Lipitor -) 10 mg PO HS [facility] Last Admin: 07/14/19 23:04 Dose: 10 mg Emollient Ointment (Aquaphor -) 1 applic TP BID [facility] Last Admin: 07/15/19 09:33 Dose: 1 applic Heparin Sodium (Porcine) (Heparin -) 5,000 unit SQ BID [facility] Last Admin: 07/15/19 09:32 Dose: 5,000 unit Insulin Aspart (Novolog Vial Sliding Scale -) 1 vial SQ Q6H [facility]; Protocol Last Admin: 07/15/19 12:04 Dose: Not Given Levothyroxine Sodium (Synthroid -) 75 mcg PO DAILY@0700 [facility] Last Admin: 07/15/19 09:49 Dose: 75 mcg Metoprolol Succinate (Toprol Xl -) 25 mg PO DAILY [facility] Last Admin: 07/15/19 09:32 Dose: 25 mg Pantoprazole Sodium (Protonix -) 40 mg PO BID [facility] Last Admin: 07/15/19 09:32 Dose: 40 mg Polyethylene Glycol (Miralax (For Daily Use) -) 17 gm PO DAILY [facility] Last Admin: 07/15/19 09:35 Dose: Not Given Quinapril HCl (Accupril -) 40 mg PO DAILY [facility] Last Admin: 07/15/19 09:32 Dose: 40 mg - Objective Vital Signs: Vital Signs Temperature 98.8 F 07/15/19 06:00 Pulse Rate 77 07/15/19 06:00 Respiratory Rate 20 07/15/19 09:00 Blood Pressure 149/65 07/15/19 06:00 O2 Sat by Pulse Oximetry (%) 95 07/15/19 10:00 Constitutional: Yes: Calm Eyes: Yes: Conjunctiva Clear HENT: Yes: Atraumatic Cardiovascular: Yes: S1, S2 Respiratory: Yes: CTA Bilaterally Gastrointestinal: Yes: Soft Genitourinary: Yes: Incontinence Musculoskeletal: Yes: Muscle Weakness Edema: No Neurological: Yes: Confusion Labs: CBC, BMP 07/15/19 06:43 07/15/19 06:43 INR, PTT INR 1.65 (0.83-1.09) H 07/03/19 01:04 Assessment/Plan Current Medications Generic Name Dose Route Start Last Admin Trade Name Stacia PRN Reason Stop Dose Admin Albuterol/Ipratropium 1 amp 07/07/19 20:09 07/11/19 16:40 Duoneb - NEB 1 amp Q4H PRN Administration SHORTNESS OF BREATH Atorvastatin Calcium 10 mg 07/07/19 22:00 07/14/19 23:04 Lipitor - PO 10 mg HS [facility] Administration Emollient Ointment 1 applic 07/10/19 22:00 07/15/19 09:33 Aquaphor - TP 1 applic BID [facility]INO Administration Heparin Sodium (Porcine) 5,000 unit 07/14/19 22:00 07/15/19 09:32 Heparin - SQ 5,000 unit BID SIL[facility]INO Administration Insulin Aspart 1 vial 07/08/19 00:30 07/15/19 12:04 Novolog Vial Sliding Scale - SQ Not Given Q6H [facility] Protocol Levothyroxine Sodium 75 mcg 07/15/19 10:00 07/15/19 09:49 Synthroid - PO 75 mcg DAILY@0700 [facility] Administration Metoprolol Succinate 25 mg 07/15/19 10:00 07/15/19 09:32 Toprol Xl - PO 25 mg DAILY [facility] Administration Pantoprazole Sodium 40 mg 07/13/19 22:00 07/15/19 09:32 Protonix - PO 40 mg BID [facility] Administration Polyethylene Glycol 17 gm 07/14/19 10:00 07/15/19 09:35 Miralax (For Daily Use) - PO Not Given DAILY SIL[facility]INO Quinapril HCl 40 mg 07/14/19 10:00 07/15/19 09:32 Accupril - PO 40 mg DAILY SIL[facility]INO Administration 1. JELANI 2. Metabolic acidosis 3. Hypernatremia 4. Sepsis 5. Respiratory failure 6. Anemia 7. PNA 8. hypokalemia Plan - monitor lytes closely - renal function stable - pt tolerating quinapril - will need to encourage po intake and monitor lytes in rehab - avoid nephrotoxins - will follow PRN
--- NOTE | 2019-07-15 16:34 | PN ---
Teaching Attending Note Name of Resident: Joanne Fields ATTENDING PHYSICIAN STATEMENT I saw and evaluated the patient. I reviewed the resident's note and discussed the case with the resident. I agree with the resident's findings and plan as documented. SUBJECTIVE: Seen and examined at bedside. No changes, eating well OBJECTIVE: Vital Signs - 24 hr 07/14/19 07/14/19 07/15/19 21:00 22:00 06:00 Temperature 99.4 F 98.8 F Pulse Rate 77 77 Respiratory 20 20 Rate Blood Pressure 135/65 149/65 O2 Sat by Pulse 95 95 Oximetry (%) 07/15/19 07/15/19 07/15/19 09:00 10:00 14:00 Temperature 98.6 F Pulse Rate 80 Respiratory 20 20 Rate Blood Pressure 158/60 O2 Sat by Pulse 95 95 Oximetry (%) PE: Constitutional: Yes: No Distress Cardiovascular: Yes: WNL, Regular Rate and Rhythm Respiratory: Yes: WNL, Regular, CTA Bilaterally. No: Cough Gastrointestinal: Yes: WNL, Normal Bowel Sounds, Soft Extremities: Yes: Other (heel foam pads, bilateral upper extremities less edematous, ecchymotic) Edema: No edema Current Medications Albuterol/Ipratropium (Duoneb -) 1 amp NEB Q4H PRN PRN Reason: SHORTNESS OF BREATH Last Admin: 07/11/19 16:40 Dose: 1 amp Atorvastatin Calcium (Lipitor -) 10 mg PO HS [facility] Last Admin: 07/14/19 23:04 Dose: 10 mg Emollient Ointment (Aquaphor -) 1 applic TP BID [facility] Last Admin: 07/15/19 09:33 Dose: 1 applic Heparin Sodium (Porcine) (Heparin -) 5,000 unit SQ BID [facility] Last Admin: 07/15/19 09:32 Dose: 5,000 unit Insulin Aspart (Novolog Vial Sliding Scale -) 1 vial SQ Q6H [facility]; Protocol Last Admin: 07/15/19 12:04 Dose: Not Given Levothyroxine Sodium (Synthroid -) 75 mcg PO DAILY@0700 [facility] Last Admin: 07/15/19 09:49 Dose: 75 mcg Metoprolol Succinate (Toprol Xl -) 25 mg PO DAILY [facility] Last Admin: 07/15/19 09:32 Dose: 25 mg Pantoprazole Sodium (Protonix -) 40 mg PO BID [facility] Last Admin: 07/15/19 09:32 Dose: 40 mg Polyethylene Glycol (Miralax (For Daily Use) -) 17 gm PO DAILY [facility] Last Admin: 07/15/19 09:35 Dose: Not Given Quinapril HCl (Accupril -) 40 mg PO DAILY [facility] Last Admin: 07/15/19 09:32 Dose: 40 mg Laboratory Results - last 24 hr 07/14/19 07/14/19 07/14/19 06:37 17:46 23:53 WBC RBC Hgb Hct MCV MCH MCHC RDW Plt Count MPV Absolute Neuts (auto) Neutrophils % Lymphocytes % Monocytes % Eosinophils % Basophils % Nucleated RBC % Sodium Potassium Chloride Carbon Dioxide Anion Gap BUN Creatinine Est GFR (CKD-EPI)AfAm Est GFR (CKD-EPI)NonAf POC Glucometer 122 119 Random Glucose Calcium Total Bilirubin AST ALT Alkaline Phosphatase Total Protein Albumin Tiss Transglutamin IgG < 2 Tiss Transglutamin IgA < 2 07/15/19 07/15/19 07/15/19 05:44 06:43 06:43 WBC 5.7 RBC 3.09 L Hgb 9.3 L Hct 27.3 L MCV 88.5 MCH 30.0 MCHC 33.9 RDW 14.6 Plt Count 427 MPV 7.3 L Absolute Neuts (auto) 4.1 Neutrophils % 71.9 Lymphocytes % 17.1 Monocytes % 9.0 Eosinophils % 1.3 Basophils % 0.7 Nucleated RBC % 0 Sodium 137 Potassium 4.2 Chloride 103 Carbon Dioxide 29 Anion Gap 5 L BUN 15.7 Creatinine 0.9 Est GFR (CKD-EPI)AfAm 65.70 Est GFR (CKD-EPI)NonAf 56.69 POC Glucometer 116 Random Glucose 119 H Calcium 8.4 L Total Bilirubin 0.4 AST 29 ALT 33 Alkaline Phosphatase 209 H Total Protein 6.0 L Albumin 2.3 L Tiss Transglutamin IgG Tiss Transglutamin IgA 07/15/19 11:22 WBC RBC Hgb Hct MCV MCH MCHC RDW Plt Count MPV Absolute Neuts (auto) Neutrophils % Lymphocytes % Monocytes % Eosinophils % Basophils % Nucleated RBC % Sodium Potassium Chloride Carbon Dioxide Anion Gap BUN Creatinine Est GFR (CKD-EPI)AfAm Est GFR (CKD-EPI)NonAf POC Glucometer 132 Random Glucose Calcium Total Bilirubin AST ALT Alkaline Phosphatase Total Protein Albumin Tiss Transglutamin IgG Tiss Transglutamin IgA ASSESSMENT AND PLAN: 89 year old woman with a history of HTN, hyperlipidemia, type 2 DM, anemia, TIA , dementia who presented to the ED with respiratory distress. 1. Septic shock secondary to Acute hypoxic respiratory failure secondary to pneumonia and E. faecalis UTI -extubated 07/06/19 -d/c zosyn-completed full course -blood cx neg -ID eval 2. NC Anemia -transfused PRBCs, h/h stable -monitor h/h +FOBT after being placed on hep for right arm DVT -keep off hep gtt -PPI -GI following 3. Right arm DVT -off hep gtt due to GIB -repeat cbc stable, no evidence of hemodynamic instability -no heparin at this time JELANI-resolved Demand ischemia-resolved Hypernatremia-resolved Hypokalemia-resolved Hypophosphatemia-resolved Type 2 DM HTN HLD History of TIA-resume asa and monitor h/h -cw current regimen DC planning, ready for transfer to rehab Problem List - Problems (1) Acute hypoxemic respiratory failure Code(s): J96.01 - ACUTE RESPIRATORY FAILURE WITH HYPOXIA (2) Demand ischemia Code(s): I24.8 - OTHER FORMS OF ACUTE ISCHEMIC HEART DISEASE (3) Hypercholesterolemia Code(s): E78.00 - PURE HYPERCHOLESTEROLEMIA, UNSPECIFIED (4) NSTEMI (non-ST elevated myocardial infarction) Code(s): I21.4 - NON-ST ELEVATION (NSTEMI) MYOCARDIAL INFARCTION (5) Respiratory failure Code(s): J96.90 - RESPIRATORY FAILURE, UNSP, UNSP W HYPOXIA OR HYPERCAPNIA (6) Septic shock Code(s): A41.9 - SEPSIS, UNSPECIFIED ORGANISM; R65.21 - SEVERE SEPSIS WITH SEPTIC SHOCK (7) JELANI (acute kidney injury) Code(s): N17.9 - ACUTE KIDNEY FAILURE, UNSPECIFIED (8) Acute urinary tract infection Code(s): N39.0 - URINARY TRACT INFECTION, SITE NOT SPECIFIED (9) Dehydration Code(s): E86.0 - DEHYDRATION (10) Dementia Code(s): F03.90 - UNSPECIFIED DEMENTIA WITHOUT BEHAVIORAL DISTURBANCE (11) Generalized weakness Code(s): R53.1 - WEAKNESS (12) Hypertension Code(s): I10 - ESSENTIAL (PRIMARY) HYPERTENSION (13) Anemia Code(s): D64.9 - ANEMIA, UNSPECIFIED (14) Diabetes Code(s): E11.9 - TYPE 2 DIABETES MELLITUS WITHOUT COMPLICATIONS Qualifiers: Diabetes mellitus complication status: without complication
[2019-07-15] MEDS ORDERED: ACETAMINOPHEN 500 MG TABLET (FP) PO PRN (16:36)
[2019-07-15] MEDS: ASPIRIN COATED 81 MG TABLET.EC PO SCH (17:19)
[2019-07-15] MEDS: ATORVASTATIN CA 10 MG TABLET (FP) PO SCH (23:20)
[2019-07-16] MEDS: INSULIN SLIDING SCALE (NOVOLOG) 1 VIAL SQ SCH ×3 (06:17→18:09)
[2019-07-16] MEDS: LEVOTHYROXINE NA 75 MCG TABLET (FP) PO SCH (06:32)
--- NOTE | 2019-07-16 10:07 | PN ---
Progress Note (short form) - Note Progress Note: HPI 89 year old female history of dementia, HTN, HLD, hypothyroidism, anemia, TIA, and NIDDM came to hospital for respiratory failure, septicemia and she was intubated and extubated. She remains to confused and non verbal. Patient has not had any ct head. She has history of dementia and resident of [place]. Patient is not in any distress. I spoke to nursing staff. She is afebrile and no acut edistress. she is non verbal. waiting for placement , perhaps going to [place] today. no new symptoms NEUROLOGICAL EXAMIANTION Alert ,oriented x 0, aphasic , not able to communicate eomi, pupils reactive no face asymmetry withdraws extremity to pain ct head no acute findings, and no interval change Assessment/Plan 89 year old female history of dementia, HTN, HLD, hypothyroidism, anemia, TIA, and NIDDM came to hospital for pneumonia, and septicemia. She was in icu , inutbated and extubated. Now has worse mental status than before. Unlikely to be meningitis. Patient was able to eat today. Plan: continue pt, supportive care - ct head reviewed, no acute findings - waiting for placement , may go to [place] today. Thanking you so much David Paris MD
[2019-07-16] MEDS: PANTOPRAZOLE 40 MG TABLET PO SCH (10:22)
[2019-07-16] MEDS: ASPIRIN COATED 81 MG TABLET.EC PO SCH (10:22)
[2019-07-16] MEDS: metoPROLOL SUCCINATE 25 MG TAB.SR.24H (FP) PO SCH (10:22)
[2019-07-16] MEDS: HEPARIN NA (PORCINE) 5,000 UNITS/ML 1ML VIAL SQ SCH (10:22)
[2019-07-16] MEDS: QUINAPRIL HCL 40 MG TABLET (FP) PO SCH (10:23)
[2019-07-16] MEDS: POLYETHYLENE GLYCOL 3350 119 GM BTL PO SCH (10:24)
[2019-07-16] MEDS: MINERAL OIL/PET HY-PHL TOPICAL OINTMENT 454 GM JAR TP SCH (10:24)
--- NOTE | 2019-07-16 11:20 | PN ---
Progress Note, Physician History of Present Illness: Lethargic afebrile, nonverbal, arousable. Heparin gtt dced due to anemia and + FOBT. GI input appreciated. - Current Medication List Current Medications: Active Medications Acetaminophen (Tylenol -) 650 mg PO Q4H PRN PRN Reason: PAIN 4-6 Albuterol/Ipratropium (Duoneb -) 1 amp NEB Q4H PRN PRN Reason: SHORTNESS OF BREATH Last Admin: 07/11/19 16:40 Dose: 1 amp Aspirin (Ecotrin -) 81 mg PO DAILY [facility] Last Admin: 07/16/19 10:22 Dose: 81 mg Atorvastatin Calcium (Lipitor -) 10 mg PO HS [facility] Last Admin: 07/15/19 23:20 Dose: 10 mg Emollient Ointment (Aquaphor -) 1 applic TP BID [facility] Last Admin: 07/16/19 10:24 Dose: 1 applic Heparin Sodium (Porcine) (Heparin -) 5,000 unit SQ BID [facility] Last Admin: 07/16/19 10:22 Dose: 5,000 unit Insulin Aspart (Novolog Vial Sliding Scale -) 1 vial SQ Q6H [facility]; Protocol Last Admin: 07/16/19 06:17 Dose: Not Given Levothyroxine Sodium (Synthroid -) 75 mcg PO DAILY@0700 [facility] Last Admin: 07/16/19 06:32 Dose: 75 mcg Metoprolol Succinate (Toprol Xl -) 25 mg PO DAILY [facility] Last Admin: 07/16/19 10:22 Dose: 25 mg Pantoprazole Sodium (Protonix -) 40 mg PO BID [facility] Last Admin: 07/16/19 10:22 Dose: 40 mg Polyethylene Glycol (Miralax (For Daily Use) -) 17 gm PO DAILY [facility] Last Admin: 07/16/19 10:24 Dose: Not Given Quinapril HCl (Accupril -) 40 mg PO DAILY [facility] Last Admin: 07/16/19 10:23 Dose: 40 mg - Objective Vital Signs: Vital Signs Temperature 98.2 F 07/16/19 10:00 Pulse Rate 88 07/16/19 10:00 Respiratory Rate 07/16/19 10:00 Blood Pressure 134/66 07/16/19 10:00 O2 Sat by Pulse Oximetry (%) 95 07/15/19 22:00 Constitutional: Yes: No Distress, Calm Neck: Yes: Supple Cardiovascular: Yes: Regular Rate and Rhythm Respiratory: Yes: Regular, Diminished, On Nasal O2 Gastrointestinal: Yes: Soft, Hypoactive Bowel Sounds Edema: No Labs: CBC, BMP 07/15/19 06:43 07/15/19 06:43 INR, PTT INR 1.65 (0.83-1.09) H 07/03/19 01:04 Problem List - Problems (1) Septic shock Code(s): A41.9 - SEPSIS, UNSPECIFIED ORGANISM; R65.21 - SEVERE SEPSIS WITH SEPTIC SHOCK (2) Acute hypoxemic respiratory failure Code(s): J96.01 - ACUTE RESPIRATORY FAILURE WITH HYPOXIA (3) Demand ischemia Code(s): I24.8 - OTHER FORMS OF ACUTE ISCHEMIC HEART DISEASE (4) Hypercholesterolemia Code(s): E78.00 - PURE HYPERCHOLESTEROLEMIA, UNSPECIFIED (5) UTI (urinary tract infection) Code(s): N39.0 - URINARY TRACT INFECTION, SITE NOT SPECIFIED Qualifiers: Urinary tract infection type: site unspecified (6) JELANI (acute kidney injury) Code(s): N17.9 - ACUTE KIDNEY FAILURE, UNSPECIFIED Assessment/Plan 07/05/2019 Echocardiography reviewed. Moderate , pleural effusion, moderate TR 1. Acute hypoxemic respiratory failure post intubation and mechanical ventilation 2. Post septic shock LLL pneumonia and urosepsis 3. Hypercholesterolemia 4. Hypothyoidism 5. NIDDM 6. Cerebrovascular disease, h/o TIA 7. Organic brain/dementia 8. 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 Demand ischemia 10. JELANI due to septic shock resolved 11. Moderate 12. Moderate TR 13. Pleural effusion 14. RUE brachial DVT 15. Hypernatremia resolved PLAN: 1. Completed antibiotic coverage, observe off 2. DVT prophylaxis. GI prophylaxis, BD, O2 as needed 3. Continue Toprol XL 25 qd, Quinapril 40 mg QD, ASA 81 qd and Atorvastatin 10 mg QHS as tolerated 4. Venofer per GI
[2019-07-16] MEDS ORDERED: INSULIN (NOVOLOG) ASPART 100 UNITS/ML 10ML VIAL ONE (11:37)
--- NOTE | 2019-07-16 12:43 | PN ---
Progress Note, GRAIN ELEVATOR AGENT - Note Progress Note: Selected Entries 07/15/19 07/15/19 07/15/19 06:00 10:00 13:00 Breakfast 50% Lunch 75% Supper Temperature 98.8 F 07/15/19 07/15/19 07/15/19 14:00 17:32 20:46 Breakfast Lunch Supper 100% Temperature 98.6 F 98.6 F 07/15/19 07/16/19 07/16/19 22:00 06:00 10:00 Breakfast Lunch Supper Temperature 99.7 F H 98.7 F 98.2 F Laboratory Tests 07/14/19 07/15/19 06:37 06:43 WBC 7.0 5.7 Asked to reassess pt as family is asking for egg salad. Pt veerbal, jargon, dysphonia. Tolerating puree/honey well. Suggest maintain diet as ordered at this time. Consider trial of egg custard, aspiration precautions.
--- NOTE | 2019-07-16 13:29 | PN ---
Progress Note (short form) - Note Progress Note: PULMONARY VSS/afebrile Gen: NAD Heart: RRR Lung: scattered rhonchi Abd: soft, nontender Ext: + edema ASSESSMENT AND PLAN: Acute Hypoxic Respiratory Failure improved Pneumonia UTI Bacteremia Septic Shock resolving Acute Kidney Injury improving Lactic Acidosis +Troponins likely Demand Ischemia Aortic Stenosis Pulmonary HTN DM Hypothyroidism Hypercholesterolemia h/o CVA Dementia Anemia - aspiration precautions - DVT/GI prophylaxis - Renal follow up Alexi ALMAGUER MD
--- NOTE | 2019-07-16 13:53 | PN.GI ---
GI Progress Note Subjective: GI NOte: Nursing informs me that there is no overt bleeding. - Objective Vital Signs: Vital Signs Temperature 98.2 F 07/16/19 10:00 Pulse Rate 88 07/16/19 10:00 Respiratory Rate 07/16/19 10:00 Blood Pressure 134/66 07/16/19 10:00 O2 Sat by Pulse Oximetry (%) 94 L 07/16/19 10:00 Laboratory Tests 07/11/19 07/13/19 07/14/19 05:48 07:55 06:37 Hgb 9.2 L 9.5 L 8.4 L 07/15/19 06:43 Hgb 9.3 L Constitutional: Calm ...Auscultate: Yes: Normoactive Bowel Sounds ...Palpate: Yes: Soft, Other (nontender) Labs: CBC, BMP 07/15/19 06:43 07/15/19 06:43 INR, PTT INR 1.65 (0.83-1.09) H 07/03/19 01:04 Assessment/Plan Impression: -- Anemia due to chronic bleeding likely from multiple etiologies that include residual rectal prolapse repair site friablity, suspected small bowel vascular ectasias and possible large hiatal hernia [place] ulcers - Chronic GERD across a large hiatal hernia that has caused a Schatzki ring in the past. She is fortunately eating well. Plan: -- Follow CBCs -- Venofer as iron studies are mixed and saturation is low -- Continue Pantoprazole BID and Miralax Problem List - Problems (1) Anemia due to gastrointestinal blood loss Code(s): D50.0 - IRON DEFICIENCY ANEMIA SECONDARY TO BLOOD LOSS (CHRONIC) (2) Rectal mucosa prolapse Code(s): K62.3 - RECTAL PROLAPSE (3) Diverticulosis Code(s): K57.90 - DVRTCLOS OF INTEST, PART UNSP, W/O PERF OR ABSCESS W/O BLEED (4) Schatzki's ring of distal esophagus Code(s): K22.2 - ESOPHAGEAL OBSTRUCTION (5) Gastroesophageal reflux disease with hiatal hernia Code(s): K21.9 - GASTRO-ESOPHAGEAL REFLUX DISEASE WITHOUT ESOPHAGITIS; K44.9 - DIAPHRAGMATIC HERNIA WITHOUT OBSTRUCTION OR GANGRENE (6) Constipation Code(s): K59.00 - CONSTIPATION, UNSPECIFIED (7) Hypothyroidism Code(s): E03.9 - HYPOTHYROIDISM, UNSPECIFIED (8) Acute hypoxemic respiratory failure Code(s): J96.01 - ACUTE RESPIRATORY FAILURE WITH HYPOXIA (9) Demand ischemia Code(s): I24.8 - OTHER FORMS OF ACUTE ISCHEMIC HEART DISEASE (10) Dementia Code(s): F03.90 - UNSPECIFIED DEMENTIA WITHOUT BEHAVIORAL DISTURBANCE (11) Diabetes Code(s): E11.9 - TYPE 2 DIABETES MELLITUS WITHOUT COMPLICATIONS Qualifiers: Diabetes mellitus complication status: without complication
[2019-07-16] MEDS ORDERED: IRON SUCROSE INJECTION 200 MG in SODIUM CHLORIDE 90 ML IVPB ONE (13:55)
--- NOTE | 2019-07-16 14:05 | PN ---
Physical Exam: SUBJECTIVE: Patient seen and examined OBJECTIVE: Vital Signs Period Temp Pulse Resp BP Sys/Tolentino Pulse Ox Last 24 Hr 98.2 F-99.7 F 79-88 18-20 134-161/66-81 94-95 in no distress at this time CVS:S1S2 CTAB Abd:Bs+ NT/ND Laboratory Results - last 24 hr 07/15/19 07/15/19 07/16/19 17:45 23:21 06:16 POC Glucometer 143 193 104 07/16/19 11:34 POC Glucometer 160 Active Medications Generic Name Dose Route Start Last Admin Trade Name Freq PRN Reason Stop Dose Admin Acetaminophen 650 mg 07/15/19 16:36 Tylenol - PO Q4H PRN PAIN 4-6 Albuterol/Ipratropium 1 amp 07/07/19 20:09 07/11/19 16:40 Duoneb - NEB 1 amp Q4H PRN Administration SHORTNESS OF BREATH Aspirin 81 mg 07/15/19 16:45 07/16/19 10:22 Ecotrin - PO 81 mg DAILY SILVINO Administration Atorvastatin Calcium 10 mg 07/07/19 22:00 07/15/19 23:20 Lipitor - PO 10 mg HS SILVINO Administration Emollient Ointment 1 applic 07/10/19 22:00 07/16/19 10:24 Aquaphor - TP 1 applic BID SILVINO Administration Heparin Sodium (Porcine) 5,000 unit 07/14/19 22:00 07/16/19 10:22 Heparin - SQ 5,000 unit BID SILVINO Administration Iron Sucrose 200 mg/ Sodium 100 mls @ 100 mls/hr 07/16/19 13:55 Chloride IVPB 07/16/19 14:54 ONCE ONE Insulin Aspart 1 vial 07/08/19 00:30 07/16/19 11:37 Novolog Vial Sliding Scale - SQ 2 units Q6H SILVINO Administration Protocol Levothyroxine Sodium 75 mcg 07/15/19 10:00 07/16/19 06:32 Synthroid - PO 75 mcg DAILY@0700 SILVINO Administration Metoprolol Succinate 25 mg 07/15/19 10:00 07/16/19 10:22 Toprol Xl - PO 25 mg DAILY SIL[facility]INO Administration Pantoprazole Sodium 40 mg 07/13/19 22:00 07/16/19 10:22 Protonix - PO 40 mg BID SILVINO Administration Polyethylene Glycol 17 gm 07/14/19 10:00 07/16/19 10:24 Miralax (For Daily Use) - PO Not Given DAILY SILVINO Quinapril HCl 40 mg 07/14/19 10:00 07/16/19 10:23 Accupril - PO 40 mg DAILY SILVINO Administration ASSESSMENT/PLAN: She is a being DCed today for further informtaion please read the HS DC summary Visit type - Emergency Visit Emergency Visit: Yes ED Registration Date: 07/03/19 Care time: The patient presented to the Emergency Department on the above date and was hospitalized for further evaluation of their emergent condition. - New Patient This patient is new to me today: No - Critical Care Critical Care patient: No - Discharge Referral Referred to [facility] Med [facility] No
[2019-07-16 20:08] VITALS: BP 130/64; PULSE 85; TEMP 98.4
== END 2019-07-16 21:07 | DRG 871 ==
LOC: JER 00:52 → JERBED 01:26 → JICU 06:47 → J8W 07-07 18:51
PROVIDERS: ADMIT Internal Medicine; ATTEND Internal Medicine
PROC: 0CHY7BZ Insertion of Airway into Mouth and Throat, Via Natural or Artificial Opening (ICD-10-PCS; principal; 2019-07-03)
PROC: 5A1945Z Respiratory Ventilation, 24-96 Consecutive Hours (ICD-10-PCS; 2019-07-03)
PROC: 05HM33Z Insertion of Infusion Device into Right Internal Jugular Vein, Percutaneous Approach (ICD-10-PCS; 2019-07-03)
PROC: B513ZZA Fluoroscopy of Right Jugular Veins, Guidance (ICD-10-PCS; 2019-07-03)
DX: A41.89 Other specified sepsis (principal); R65.21 Severe sepsis with septic shock; J96.01 Acute respiratory failure with hypoxia; J18.9 Pneumonia, unspecified organism; I21.4 Non-ST elevation (NSTEMI) myocardial infarction; N17.9 Acute kidney failure, unspecified; N39.0 Urinary tract infection, site not specified; E46 Unspecified protein-calorie malnutrition; M62.82 Rhabdomyolysis; I24.8 Other forms of acute ischemic heart disease; E87.2 Acidosis; E87.0 Hyperosmolality and hypernatremia; J90 Pleural effusion, not elsewhere classified; I82.621 Acute embolism and thrombosis of deep veins of right upper extremity; D64.9 Anemia, unspecified; I08.2 Rheumatic disorders of both aortic and tricuspid valves; I27.20 Pulmonary hypertension, unspecified; E03.9 Hypothyroidism, unspecified; E78.5 Hyperlipidemia, unspecified; K57.90 Diverticulosis of intestine, part unspecified, without perforation or abscess without bleeding; K22.2 Esophageal obstruction; K44.9 Diaphragmatic hernia without obstruction or gangrene; K62.3 Rectal prolapse; E83.39 Other disorders of phosphorus metabolism; E87.6 Hypokalemia; K21.9 Gastro-esophageal reflux disease without esophagitis; F03.90 Unspecified dementia, unspecified severity, without behavioral disturbance, psychotic disturbance, mood disturbance, and anxiety; B95.2 Enterococcus as the cause of diseases classified elsewhere; D69.6 Thrombocytopenia, unspecified; G47.30 Sleep apnea, unspecified; E11.65 Type 2 diabetes mellitus with hyperglycemia; I10 Essential (primary) hypertension; F20.9 Schizophrenia, unspecified; Z86.73 Personal history of transient ischemic attack (TIA), and cerebral infarction without residual deficits
CPT/HCPCS: 36415; 36430; 36511; 36600; 70450-TC; 71045-TC-FY; 74018-TC-FY; 80048; 80053; 81003; 82272; 82375; 82550; 82553; 82728; 82803; 82962; 83050; 83516; 83540; 83550; 83605; 83735; 84100; 84484; 85025; 85027; 85044; 85610; 85730; 86850; 86900; 86901; 86922; 87040; 87070; 87086; 87186; 87205; 87804; 87899; 93005; 93010; 93306-TC; 93970-TC; 94002; 94640; 97116-GP; 97161-GP; 99285-25; G0480; J0131; J1644; J1756; J7030; P9038; P9058

== ENCOUNTER 2019-07-21 02:48 | Inpatient (IN) | payer OTHER ==
--- NOTE | 2019-07-21 03:15 | PDOC ---
History of Present Illness - General Stated Complaint: GI BLEED Time Seen by Provider: 07/21/19 02:56 - History of Present Illness Initial Comments: 07/21/19 03:10 89 yo F with h/o HLD, DM, hypothyroidism, chronic lower GI bleed, sever dementia , GERD, who p/w lower rectal bleeding. Patient arrives from [facility] on the [place] with report of profuse rectal bleedoing with clotting this morning 1 AM. Patient recently admitted to [facility] (07/18/19) for septic shock 2/2 acute hypoxic resp failure, PNA, E faecalis UTI, anemia requiring transfusions, demand ischemia. Patient evaluated by GI prior admission, with report that GI bleed likely 2/2 multiple etiologies including residual rectal prolapse repair site friability, small bowel vascular ectasias, large hiatal hernia [place] ulcers. Patient poor historian d/t underlying dementia. Patient denies N/V, F,C, CP, SOB, urinary complaints, hematuria, BPR, abdominal pain, diarrhea, constipation, lightheadedness, weakness, sensory changes. PMHx: as noted above ROS: as noted SHx: Denies Etoh, IVDA, tobacco use Allergies: NKDA Code Status: Full code Past History - Past Medical History Allergies/Adverse Reactions: Allergies Allergy/AdvReac Type Severity Reaction Status Date / Time No Known Allergies Allergy Verified 07/21/19 03:03 Home Medications: Ambulatory Orders Levothyroxine [Synthroid -] 75 mcg PO DAILY #0 tablet 06/14/13 Metoprolol Succinate [Toprol XL -] 25 mg PO DAILY #0 tab.sr.24h 06/14/13 Multivit-Min/FA/Lycopene/Lut [Centrum Silver Tablet] 1 each PO DAILY #0 tablet 06/14/13 Quinapril HCl [Accupril -] 40 mg PO DAILY #0 tablet 06/14/13 Ascorbic Acid [Vitamin C -] 500 mg PO DAILY #30 tablet 06/20/14 Aspirin [ASA -] 81 mg PO DAILY 01/22/16 Memantine HCl [Namenda -] 20 mg PO HS 01/22/16 Metformin HCl [Riomet] 750 mg PO BID 01/22/16 Albuterol 2.5/Ipratropium 0.5 [Duoneb -] 1 amp NEB Q4H PRN amp 07/15/19 Atorvastatin Ca [Lipitor] 10 mg PO HS tablet 07/15/19 Pantoprazole Sodium [Protonix -] 40 mg PO BID tablet.ec 07/15/19 Anemia: Yes Asthma: No Cancer: No Cardiac Disorders: No CVA: Yes (TIA) COPD: No CHF: No DVT: No Dementia: Yes (baseline non verbal) Diabetes: Yes GI Disorders: Yes (H/O RECTAL PROLAPSE) Disorders: No HTN: Yes Hypercholesterolemia: Yes Liver Disease: No Thyroid Disease: Yes (HYPO) - Surgical History Abdominal Surgery: Yes (RECTAL PROLAPSE REPAIR x 3) Appendectomy: No Cardiac Surgery: No Cholecystectomy: No Lung Surgery: No Neurologic Surgery: No Orthopedic Surgery: No - Immunization History Td Vaccination: Yes TDAP Vaccination: Yes Immunization Up to Date: Yes - Psycho Social/Smoking Cessation Hx Smoking Status: No Smoking History: Never smoked Have you smoked in the past 12 months: No Number of Cigarettes Smoked Daily: 0 Cigars Per Day: 0 Information on smoking cessation initiated: No Hx Alcohol Use: No Drug/Substance Use Hx: No Substance Use Type: None Hx Substance Use Treatment: No Review of Systems - Review of Systems Comments:: 07/21/19 03:28 Unable to obtain 13 point ROS inspection *Physical Exam - Vital Signs Last Vital Signs Temp Pulse Resp BP Pulse Ox 99.5 F 81 18 145/66 98 07/21/19 03:04 07/21/19 03:04 07/21/19 03:04 07/21/19 03:04 07/21/19 03:04 - Physical Exam 07/21/19 03:29 GENERAL: Awake, alert, disoriented, in no acute distress HEAD: No signs of trauma, normocephalic, atraumatic EYES: PERRLA, EOMI, sclera anicteric, conjunctiva clear ENT: Hearing grossly normal, nares patent, oropharynx clear without exudates. Moist mucosa NECK: Normal ROM, supple, no lymphadenopathy, JVD, or masses LUNGS: No distress, speaks full sentences, clear to auscultation bilaterally HEART: Regular rate and rhythm, normal S1 and S2, no murmurs, rubs or gallops, peripheral pulses normal and equal bilaterally. Rectum: Plug Making Operator at bedside. Scant dark stool in rectal vault, with bright red blood. absent clotting visualized. External non thrombosed hemmorhoid. ABDOMEN: Soft, nontender, normoactive bowel sounds. No guarding, no rebound. No masses EXTREMITIES : Normal inspection, Normal range of motion, no edema. No clubbing or cyanosis NEUROLOGICAL: Cranial nerves II through XII grossly intact. Nno focal sensorimotor deficits SKIN: Warm, Dry, normal turgor, no rashes or lesions noted ED Treatment Course - LABORATORY CBC & Chemistry Diagram: 07/21/19 03:35 07/21/19 03:35 - RADIOLOGY Radiology Studies Ordered: Category Date Time Status CXRPORT [CHEST X-RAY PORTABLE*] [RAD] Stat Radiology 07/21/19 03:02 Ordered Medical Decision Making - Medical Decision Making 07/21/19 03:22 89 yo F with h/o HLD, DM, hypothyroidism, chronic lower GI bleed, sever dementia , GERD, who p/w lower rectal bleeding. Patient with h/o chronic lower GI bleed 2 /2 multiple etiologies including residual rectal prolapse repair site friability , small bowel vascular ectasias, large hiatal hernia [place] ulcers. Vitals wnl , AF, Alert. Physical exam notable for scant dark stool, with bright blood from rectum, with external hemorrhoid (non thombosed). Will evaluate need for transfusion, hypoglycemia, acid base disturbances, electolyte abnml, metabolic and toxic derangements. 07/21/19 03:28 Ed Course: 07/21/19 05:00 EKG: NSR with PVC's, nml interval duration and axis. 07/21/19 05:02 Laboratory Tests 07/21/19 07/21/19 07/21/19 02:24 03:35 03:35 WBC 5.1 Hgb 8.9 L Hct 26.6 L Plt Count 411 Sodium Potassium BUN Creatinine Creatine Kinase 88 Troponin I < 0.02 Stool Occult Blood Negative 07/21/19 03:35 WBC Hgb Hct Plt Count Sodium 140 Potassium 4.4 BUN 26.0 H Creatinine 0.9 Creatine Kinase Troponin I Stool Occult Blood Patient discussed with health care proxy/son Pradip at bedside, with pt. daughter present 07/21/19 05:16 Patient with continous bright red blood per rectum Will admit to med/surg, trend serial h/h 07/21/19 06:03 Pt. endorsed to medicine. Admit to [facility] Discharge - Discharge Information Problems reviewed: Yes Clinical Impression/Diagnosis: WV (blood per rectum) Condition: Stable Disposition: HOME - Admission Yes - Follow up/Referral Referrals: Favio Sears MD [Staff Physician] - Rosa Greenwood MD [Staff Physician] - - Patient Discharge Instructions Patient Printed Discharge Instructions: DI for Rectal Bleeding Additional Instructions: Please return to the emergency department with any new or worsening symptoms or concerns. Please follow up with your environmental protection officer and primary care physician within 72 hours. - Post Discharge Activity
--- NOTE | 2019-07-21 03:38 | PDOC ---
Attending Attestation - Resident Resident Name: Forest Dunham - ED Attending Attestation I have performed the following: I have examined & evaluated the patient, The case was reviewed & discussed with the resident, I agree w/resident's findings & plan - HPI HPI: 07/21/19 05:03 see resident hpi - Physicial Exam PE: 07/21/19 05:04 agree with resident exam - Medical Decision Making 07/21/19 05:04 89-year-old female sent for rectal bleeding On arrival patient had no gross blood On reexam at 5 AM patient has bright red blood per rectum with no gross hemorrhage Hemoglobin was 8.9 on arrival Case discussed with daughter who is at the bedside as well as patient's son, Pradip who is her healthcare proxy who maintains her status as full code and would like her readmitted for further evaluation by gastroenterology and agrees with transfusion as necessary
[2019-07-21 04:09] LABS: INR 1.12 (0.83-1.09); PROTHROMBIN TIME (PATIENT) 13.2 SEC (9.7-13.0)
[2019-07-21 04:32] LABS: BASO % 0.4 % (0-2.0); EOS % 2.2 % (0-4.5); HEMATOCRIT 26.6 % (32.4-45.2); HEMOGLOBIN 8.9 GM/dL (10.7-15.3); LYMPH % 22.8 % (8-40); MCHC 33.6 g/dl (32.0-36.0); MEAN CELL VOLUME 89.5 fl (80-96); MONO % 12.1 % (3.8-10.2); NEUT % 62.5 % (42.8-82.8); PLATELET COUNT 411 K/MM3 (134-434); RBC 2.97 M/mm3 (3.60-5.2); RDW 14.9 % (11.6-15.6); WHITE BLOOD COUNT 5.1 K/mm3 (4.0-10.0)
[2019-07-21 04:43] LABS: ALBUMIN 2.5 g/dl (3.4-5.0); BILIRUBIN,TOTAL 0.2 mg/dL (0.2-1); CALCIUM 8.9 mg/dL (8.5-10.1); CREATININE 0.9 mg/dL (0.55-1.3); POTASSIUM 4.4 mmol/L (3.5-5.1); TOT PROT 6.2 g/dl (6.4-8.2)
--- NOTE | 2019-07-21 05:54 | PN ---
Teaching Attending Note Name of Resident: Leandro Jones ATTENDING PHYSICIAN STATEMENT I saw and evaluated the patient. I reviewed the resident's note and discussed the case with the resident. I agree with the resident's findings and plan as documented. SUBJECTIVE: Patient is an 89 year old woman with a PMH of Anemia, Chondrocalcinosis, HTN, HLD, Rectal prolapse (s/p repair), Hypothyroidism, Lower GI bleeding, Right arm DVT and NIDDM who presents with rectal bleeding. Patient arrives from [facility] on the [facility] with report of profuse rectal bleeding with clotting this morning around 1 am. Patient was recently hospitalized at [facility] from 07/03/2019 to ? for septic shock due to E faecalis UTI, Pneumonia and intubated for acute hypoxic respiratory failure. Her course was complicated by right arm DVT for which she got IV heparin drip, then developed rectal bleeding requiring PRBC tranfusion. Patient unable to provide additional information due to underlying dementia. There is no history of nausea, vomiting, fever, chills, chest pain, SOB, hematuria, dysuria, abdominal pain, diarrhea, constipation, lightheadedness, headache or weakness. There is no history of alcohol, tobacco or illicit drug use. No recent travels. Had fresh rectal bleeding while in he ER. OBJECTIVE: Alert Vital Signs Period Temp Pulse Resp BP Sys/T[place] Pulse Ox Last 24 Hr 99.5 F 81 18 145/66 98-98 HEENT: No Jaundice, eye redness or discharge, PERRLA. Normocephalic, atraumatic. External ears are normal. No nasal discharge. Neck: Supple, nontender. No palpable adenopathy or thyromegaly. No JVD Chest: Good effort. Clear to auscultation and percussion. Heart: Regular. No S3, rub or murmur Abdomen: Not distended, soft, nontender and no HSM. No rebound or guarding. Normal bowel sounds. Ext: Peripheral pulses intact. No leg edema. Skin: Warm and dry. No petechiae, rash or ecchymosis. Neuro: Alert. Not oriented. CN 2-12 grossly intact. Sensation grossly intact in all four extremities and DTR are symmetric. Psych: Unable to assess. Home Medications Medication Instructions Recorded Levothyroxine [Synthroid -] 75 mcg PO DAILY #0 tablet 06/14/13 Metoprolol Succinate [Toprol XL -] 25 mg PO DAILY #0 tab.sr.24h 06/14/13 Multivit-Min/FA/Lycopene/Lut 1 each PO DAILY #0 tablet 06/14/13 [Centrum Silver Tablet] Quinapril HCl [Accupril -] 40 mg PO DAILY #0 tablet 06/14/13 Ascorbic Acid [Vitamin C -] 500 mg PO DAILY #30 tablet 06/20/14 Aspirin [ASA -] 81 mg PO DAILY 01/22/16 Memantine HCl [Namenda -] 20 mg PO HS 01/22/16 Metformin HCl [Riomet] 750 mg PO BID 01/22/16 Albuterol 2.5/Ipratropium 0.5 1 amp NEB Q4H PRN amp 07/15/19 [Duoneb -] Atorvastatin Ca [Lipitor] 10 mg PO HS tablet 07/15/19 Pantoprazole Sodium [Protonix -] 40 mg PO BID tablet.ec 07/15/19 Abnormal Lab Results 07/21/19 07/21/19 07/21/19 03:35 03:35 03:35 RBC 2.97 L Hgb 8.9 L Hct 26.6 L MPV 7.0 L Monocytes % 12.1 H PT with INR 13.20 H INR 1.12 H Anion Gap 5 L BUN 26.0 H Alkaline Phosphatase 136 H Total Protein 6.2 L Albumin 2.5 L ASSESSMENT AND PLAN: 1. Rectal bleeding - Blood sent for type and screen and will transfuse PRBC once clinically indicated. Will repeat CBC stat. Get CT abdomen/pelvis with contrast to identify bleeding site. Will continue IV NS and give IV protonix, keep her NPO and consult GI. CXR shows cardiomegaly and obscured left costophrenic angle. EKG shows NSR with no significant ST-T wave changes. Will continue comprehensive care for all of patients comorbid conditions including IV synthroid for hypothyroidism. 2. Hypoalbuminemia - Possibly due to combined effects of malnutrition and inflammation associated with comorbid chronic conditions and recent acute illness. Will ensure adequate dietary protein intake and also consult snow removing supervisor. Urinalysis pending. 3. DM For now, we will hold the home diabetes drugs and implement sliding scale insulin regimen. Provide comprehensive diabetes care with patient teaching and counseling about the importance of adherence to prescribed diabetes regimen, euglycemia, eye care and foot care. 4. Hypertension - Restart suitable outpatient antihypertensive drugs when clinically appropriate. Revise regimen to ensure [id number] excellent BP control and counselor aid patient on the injurious effects of uncontrolled hypertension. Nonpharmacologic measures to control hypertension like weight loss , salt restriction and exercise discussed. Importance of adherence to treatment regimen and attainment of normotension emphasized. 5. DVT prophylaxis - SCD 6. Advance directives - Full code
[2019-07-21] MEDS ORDERED: SODIUM CHLORIDE 1,000 ML IV STA (06:02)
[2019-07-21] MEDS ORDERED: SODIUM CHLORIDE 1,000 ML IV SCH (07:00)
--- NOTE | 2019-07-21 07:14 | HP ---
CHIEF COMPLAINT: Rectal bleed since 1AM today PCP: Dr. Weller HISTORY OF PRESENT ILLNESS: This is an 89 year old female with PMH of HLD, DM, hypothyroidism, GERD, and dementia. She is non verbal and AOx0, her daughter was available at bedside to provide a history. She states that she was with the patient at her place of residence, [facility] this evening, and left at night. She received a call from the [place] at 2AM and was informed that the patient had a bloody BM and was being taken to [facility]. The daughter states that the patient had a BM at 8PM at the [place], which was not reported to be bloody. Of note, the patient was admitted to [facility] on Jul 02 this year for 2 weeks for sepsis 2/2 PNA. She subsequently developed respiratory failure and was intubated for 3 days. She was also found to have right arm DVT, for which she was placed on a heparin drip. The drip was stopped when she was found to have a rectal bleeding which required PRBC transfusion. GI was on board at the time, and as per Dr. Greenwood, chronic bleeding with multiple etiology including prolapse, friability, SB vascular ectasis, and hiatal hernia. She also has history of rectal proplase with 2 surgeries in 2010 and 2013. Her last colonoscopy was done in 2010. No other complaints of fevers, chills, abdominal pain, nausea, vomiting, or diarrhea. ER course was notable for: (1) H&H 8.9/26.6 (2) FOBT -, repeat sent (3) CXR shows cardiomegaly and obscured left costophrenic angle (4) EKG shows NSR with no significant ST-T wave changes Recent Travel: denies PAST MEDICAL HISTORY: As listed in HPI PAST SURGICAL HISTORY: As listed in HPI Social History: Smoking: denies Alcohol: denies Drugs: denies Allergies No Known Allergies Allergy (Verified 07/21/19 03:03) HOME MEDICATIONS: Home Medications Medication Instructions Recorded Levothyroxine [Synthroid -] 75 mcg PO DAILY #0 tablet 06/14/13 Metoprolol Succinate [Toprol XL -] 25 mg PO DAILY #0 tab.sr.24h 06/14/13 Multivit-Min/FA/Lycopene/Lut 1 each PO DAILY #0 tablet 06/14/13 [Centrum Silver Tablet] Quinapril HCl [Accupril -] 40 mg PO DAILY #0 tablet 06/14/13 Ascorbic Acid [Vitamin C -] 500 mg PO DAILY #30 tablet 06/20/14 Aspirin [ASA -] 81 mg PO DAILY 01/22/16 Memantine HCl [Namenda -] 20 mg PO HS 01/22/16 Metformin HCl [Riomet] 750 mg PO BID 01/22/16 Albuterol 2.5/Ipratropium 0.5 1 amp NEB Q4H PRN amp 07/15/19 [Duoneb -] Atorvastatin Ca [Lipitor] 10 mg PO HS tablet 07/15/19 Pantoprazole Sodium [Protonix -] 40 mg PO BID tablet.ec 07/15/19 REVIEW OF SYSTEMS CONSTITUTIONAL: Absent: fever, chills, diaphoresis, generalized weakness, malaise, loss of appetite, weight change HEENT: Absent: rhinorrhea, nasal congestion, throat pain, throat swelling, difficulty swallowing, mouth swelling, ear pain, eye pain, visual changes CARDIOVASCULAR: Absent: chest pain, syncope, palpitations, irregular heart rate, lightheadedness , peripheral edema RESPIRATORY: Absent: cough, shortness of breath, dyspnea with exertion, orthopnea, wheezing, stridor, hemoptysis GASTROINTESTINAL: Absent: abdominal pain, abdominal distension, nausea, vomiting, diarrhea, constipation, melena, hematochezia GENITOURINARY: Absent: dysuria, frequency, urgency, hesitancy, hematuria, flank pain, genital pain MUSCULOSKELETAL: Absent: myalgia, arthralgia, joint swelling, back pain, neck pain SKIN: Absent: rash, itching, pallor HEMATOLOGIC/IMMUNOLOGIC: Absent: easy bleeding, easy bruising, lymphadenopathy, frequent infections ENDOCRINE: Absent: unexplained weight gain, unexplained weight loss, heat intolerance, cold intolerance NEUROLOGIC: Absent: headache, focal weakness or paresthesias, dizziness, unsteady gait, seizure, mental status changes, bladder or bowel incontinence PSYCHIATRIC: Absent: anxiety, depression, suicidal or homicidal ideation, hallucinations. PHYSICAL EXAMINATION Vital Signs - 24 hr 07/21/19 07/21/19 03:04 05:33 Temperature 99.5 F Pulse Rate 81 Respiratory 18 Rate Blood Pressure 145/66 O2 Sat by Pulse 98 98 Oximetry (%) GENERAL: AOx0 with visible pallor HEAD: Normal with no signs of trauma. EYES: Pupils equal, round and reactive to light, extraocular movements intact, sclera anicteric, conjunctiva clear. No lid lag. EARS, NOSE, THROAT: Ears normal, nares patent, oropharynx clear without exudates. drymucous membranes. LUNGS: decreased Breath sounds equal, clear to auscultation bilaterally. No wheezes, and no crackles. No accessory muscle use. HEART: Regular rate and rhythm, normal S1 and S2 without murmur, rub or gallop. ABDOMEN: Soft, nontender, not distended, bright red blood in vault, external non thrombosed hemorrhoid MUSCULOSKELETAL: Normal range of motion at all joints. No bony deformities or tenderness. No CVA tenderness. UPPER EXTREMITIES: 2+ pulses, warm, well-perfused. No cyanosis. No clubbing. No peripheral edema. LOWER EXTREMITIES: 2+ pulses, warm, well-perfused. No calf tenderness. No peripheral edema. NEUROLOGICAL: unable to assess SKIN: Dry, normal turgor, no rashes or lesions noted Laboratory Results - last 24 hr 07/21/19 07/21/19 07/21/19 02:24 03:34 03:35 WBC RBC Hgb Hct MCV MCH MCHC RDW Plt Count MPV Absolute Neuts (auto) Neutrophils % Lymphocytes % Monocytes % Eosinophils % Basophils % Nucleated RBC % PT with INR INR PTT (Actin FS) 33.0 VBG pH Cancelled POC VBG pCO2 Cancelled POC VBG pO2 Cancelled VBG HCO3 Cancelled VBG O2 Sat (Brando) Cancelled VBG Base Excess Cancelled Sodium Potassium Chloride Carbon Dioxide Anion Gap BUN Creatinine Est GFR (CKD-EPI)AfAm Est GFR (CKD-EPI)NonAf Random Glucose Calcium Total Bilirubin AST ALT Alkaline Phosphatase Creatine Kinase Troponin I Total Protein Albumin Stool Occult Blood Negative 07/21/19 07/21/19 07/21/19 03:35 03:35 03:35 WBC 5.1 RBC 2.97 L Hgb 8.9 L Hct 26.6 L MCV 89.5 MCH 30.0 MCHC 33.6 RDW 14.9 Plt Count 411 MPV 7.0 L Absolute Neuts (auto) 3.2 Neutrophils % 62.5 Lymphocytes % 22.8 D Monocytes % 12.1 H Eosinophils % 2.2 Basophils % 0.4 Nucleated RBC % 0 PT with INR INR PTT (Actin FS) VBG pH POC VBG pCO2 POC VBG pO2 VBG HCO3 VBG O2 Sat (Brando) VBG Base Excess Sodium 140 Potassium 4.4 Chloride 107 Carbon Dioxide 28 Anion Gap 5 L BUN 26.0 H Creatinine 0.9 Est GFR (CKD-EPI)AfAm 65.70 Est GFR (CKD-EPI)NonAf 56.69 Random Glucose 103 Calcium 8.9 Total Bilirubin 0.2 AST 25 ALT 18 Alkaline Phosphatase 136 H Creatine Kinase 88 Troponin I < 0.02 Total Protein 6.2 L Albumin 2.5 L Stool Occult Blood 07/21/19 03:35 WBC RBC Hgb Hct MCV MCH MCHC RDW Plt Count MPV Absolute Neuts (auto) Neutrophils % Lymphocytes % Monocytes % Eosinophils % Basophils % Nucleated RBC % PT with INR 13.20 H INR 1.12 H PTT (Actin FS) VBG pH POC VBG pCO2 POC VBG pO2 VBG HCO3 VBG O2 Sat (Brando) VBG Base Excess Sodium Potassium Chloride Carbon Dioxide Anion Gap BUN Creatinine Est GFR (CKD-EPI)AfAm Est GFR (CKD-EPI)NonAf Random Glucose Calcium Total Bilirubin AST ALT Alkaline Phosphatase Creatine Kinase Troponin I Total Protein Albumin Stool Occult Blood ASSESSMENT/PLAN: 89 year old female with PMH of HLD, DM, hypothyroidism, GERD, and dementia, rectal prolapse, presented to the ER with complaints of rectal bleeding. #GI Bleed - Bleed likely due to multiple etiologies, prolapse, friability - CT AP ordered - FOBT -, repeat sent, pending - H&H: 8.9/26.6 Q2H ordered, would not transfuse unless patient actively bleeding or Hg falls under 8 - IV N/S @ 75 started, will hydrate gently due to age (last Echo 55-60 done earlier this month) - Type and screen ordered in case transfusion is required, no indication currently - Fe and TIBC ordered - Pantoprazole 40mg IV OD started #Elevated ALP - Elevated ALP of 136 - LFTs within normal limits, Bili 1.0, and no symptoms or abdominal exam findings, will therefore monitor for now #Hx of DM - BGM ACHS with Novolog SS started #Hx of HLD - Resume home meds once confirmed #Hx of hypothyroidism - Will resume home meds once confirmed #Hypoalbuminemia - Albumin 2.5 - May be due to poor intake, will monitor and consult global climate change researcher #FEN - Currently on N/S @ 75, gentle hydration due to age - NPO for now #DVT - SCDs, no chemical AC due to active bleeding #Dispo - Will monitor in tele until hemodynamically stable - Palliative care consulted, son is HCP, goals of care will need to be addressed , patient full code for now Visit type - Emergency Visit Emergency Visit: Yes ED Registration Date: 07/21/19 Care time: The patient presented to the Emergency Department on the above date and was hospitalized for further evaluation of their emergent condition. - New Patient This patient is new to me today: Yes Date on this admission: 07/21/19 - Critical Care Critical Care patient: No ATTENDING PHYSICIAN STATEMENT I saw and evaluated the patient. I reviewed the resident's note and discussed the case with the resident. I agree with the resident's findings and plan as documented. SUBJECTIVE: OBJECTIVE: ASSESSMENT AND PLAN:
[2019-07-21] MEDS: INSULIN SLIDING SCALE (NOVOLOG) 1 VIAL SQ SCH ×4 (07:15→21:39)
[2019-07-21 09:11] LABS: HEMATOCRIT 24.2 % (32.4-45.2); HEMOGLOBIN 8.2 GM/dL (10.7-15.3); MCH 30.2 pg (25.7-33.7); MCHC 33.8 g/dl (32.0-36.0); MEAN CELL VOLUME 89.3 fl (80-96); MEAN PLT VOLUME 6.4 fl (7.5-11.1); PLATELET COUNT 383 K/MM3 (134-434); RBC 2.71 M/mm3 (3.60-5.2); RDW 15.1 % (11.6-15.6); WHITE BLOOD COUNT 4.3 K/mm3 (4.0-10.0)
[2019-07-21 09:52] LABS: INR 1.17 (0.83-1.09); PROTHROMBIN TIME (PATIENT) 13.8 SEC (9.7-13.0)
[2019-07-21 09:54] LABS: ALBUMIN 2.2 g/dl (3.4-5.0); BILIRUBIN,TOTAL 0.2 mg/dL (0.2-1); BLOOD UREA NITROGEN 24.4 mg/dL (7-18); CALCIUM 8.4 mg/dL (8.5-10.1); CREATININE 0.8 mg/dL (0.55-1.3); MAGNESIUM 1.5 mg/dL (1.8-2.4); TOT PROT 5.8 g/dl (6.4-8.2)
[2019-07-21 09:55] LABS: ACTIVATED PTT 31.8 SECONDS (25.2-36.5)
[2019-07-21] MEDS ORDERED: PANTOPRAZOLE SODIUM 40 MG VIAL IVPUSH SCH (10:00)
--- NOTE | 2019-07-21 10:36 | EKG ---
Test Reason : Blood Pressure : / mmHG Vent. Rate : 089 BPM Atrial Rate : 089 BPM P-R Int : 156 ms QRS Dur : 092 ms QT Int : 374 ms P-R-T Axes : 057 -11 042 degrees QTc Int : 455 ms POOR DATA QUALITY, INTERPRETATION MAY BE ADVERSELY AFFECTED SINUS RHYTHM WITH PREMATURE SUPRAVENTRICULAR COMPLEXES ANTERIOR INFARCT , AGE UNDETERMINED ABNORMAL ECG WHEN COMPARED WITH ECG OF 04-JUL-2019 03:34, PREMATURE SUPRAVENTRICULAR COMPLEXES ARE NOW PRESENT Confirmed by THONG RUSSELL, PAULO ([id number]) on 07/21/2019 10:35:58 AM Referred By: Confirmed By:PAULO BENITO MD
--- NOTE | 2019-07-21 11:14 | PN ---
Physical Exam: SUBJECTIVE: Patient seen and examined. nonverbal. comfortable in bed OBJECTIVE: Vital Signs Period Temp Pulse Resp BP Sys/Tolentino Pulse Ox Last 24 Hr 99.5 F 81 18 145/66 98-98 GENERAL: in NAD, nonverbal EYES: PERRL, sclera anicteric ENT: moist mucous membranes. NECK: supple. LUNGS: decreased breath sounds, no accessory muscle use. HEART: RRR ABDOMEN: Soft, nontender, nondistended, normoactive bowel sounds EXTREMITIES: 2+ pulses, no edema. Laboratory Results - last 24 hr 07/21/19 07/21/19 07/21/19 02:24 03:34 03:35 WBC RBC Hgb Hct MCV MCH MCHC RDW Plt Count MPV Absolute Neuts (auto) Neutrophils % Lymphocytes % Monocytes % Eosinophils % Basophils % Nucleated RBC % PT with INR INR PTT (Actin FS) 33.0 VBG pH Cancelled POC VBG pCO2 Cancelled POC VBG pO2 Cancelled VBG HCO3 Cancelled VBG O2 Sat (Brando) Cancelled VBG Base Excess Cancelled Sodium Potassium Chloride Carbon Dioxide Anion Gap BUN Creatinine Est GFR (CKD-EPI)AfAm Est GFR (CKD-EPI)NonAf POC Glucometer Random Glucose Calcium Phosphorus Magnesium Iron TIBC Iron Saturation Unsaturated IBC Total Bilirubin AST ALT Alkaline Phosphatase Creatine Kinase Troponin I Total Protein Albumin Stool Occult Blood Negative 07/21/19 07/21/19 07/21/19 03:35 03:35 03:35 WBC 5.1 RBC 2.97 L Hgb 8.9 L Hct 26.6 L MCV 89.5 MCH 30.0 MCHC 33.6 RDW 14.9 Plt Count 411 MPV 7.0 L Absolute Neuts (auto) 3.2 Neutrophils % 62.5 Lymphocytes % 22.8 D Monocytes % 12.1 H Eosinophils % 2.2 Basophils % 0.4 Nucleated RBC % 0 PT with INR INR PTT (Actin FS) VBG pH POC VBG pCO2 POC VBG pO2 VBG HCO3 VBG O2 Sat (Brando) VBG Base Excess Sodium 140 Potassium 4.4 Chloride 107 Carbon Dioxide 28 Anion Gap 5 L BUN 26.0 H Creatinine 0.9 Est GFR (CKD-EPI)AfAm 65.70 Est GFR (CKD-EPI)NonAf 56.69 POC Glucometer Random Glucose 103 Calcium 8.9 Phosphorus Magnesium Iron TIBC Iron Saturation Unsaturated IBC Total Bilirubin 0.2 AST 25 ALT 18 Alkaline Phosphatase 136 H Creatine Kinase 88 Troponin I < 0.02 Total Protein 6.2 L Albumin 2.5 L Stool Occult Blood 07/21/19 07/21/19 07/21/19 03:35 06:25 07:10 WBC RBC Hgb Hct MCV MCH MCHC RDW Plt Count MPV Absolute Neuts (auto) Neutrophils % Lymphocytes % Monocytes % Eosinophils % Basophils % Nucleated RBC % PT with INR 13.20 H INR 1.12 H PTT (Actin FS) VBG pH POC VBG pCO2 POC VBG pO2 VBG HCO3 VBG O2 Sat (Brando) VBG Base Excess Sodium Potassium Chloride Carbon Dioxide Anion Gap BUN Creatinine Est GFR (CKD-EPI)AfAm Est GFR (CKD-EPI)NonAf POC Glucometer 102 Random Glucose Calcium Phosphorus Magnesium Iron TIBC Iron Saturation Unsaturated IBC Total Bilirubin AST ALT Alkaline Phosphatase Creatine Kinase Troponin I Total Protein Albumin Stool Occult Blood Positive 07/21/19 07/21/19 07/21/19 09:00 09:00 09:00 WBC 4.3 RBC 2.71 L Hgb 8.2 L Hct 24.2 L MCV 89.3 MCH 30.2 MCHC 33.8 RDW 15.1 Plt Count 383 MPV 6.4 L Absolute Neuts (auto) Neutrophils % Lymphocytes % Monocytes % Eosinophils % Basophils % Nucleated RBC % PT with INR 13.80 H INR 1.17 H PTT (Actin FS) 31.8 VBG pH POC VBG pCO2 POC VBG pO2 VBG HCO3 VBG O2 Sat (Brando) VBG Base Excess Sodium 142 Potassium 4.0 Chloride 111 H Carbon Dioxide 26 Anion Gap 5 L BUN 24.4 H Creatinine 0.8 Est GFR (CKD-EPI)AfAm 75.76 Est GFR (CKD-EPI)NonAf 65.36 POC Glucometer Random Glucose 105 Calcium 8.4 L Phosphorus 3.0 Magnesium 1.5 L Iron 30 L TIBC 385 Iron Saturation 7 L Unsaturated IBC 355 H Total Bilirubin 0.2 AST 22 ALT 16 Alkaline Phosphatase 122 H Creatine Kinase Troponin I Total Protein 5.8 L Albumin 2.2 L Stool Occult Blood Active Medications Generic Name Dose Route Start Last Admin Trade Name Freq PRN Reason Stop Dose Admin Sodium Chloride 1,000 mls @ 75 mls/hr 07/21/19 07:00 07/21/19 07:15 Normal Saline - IV 75 mls/hr ASDIR SILVINO Administration Insulin Aspart 1 vial 07/21/19 07:00 07/21/19 07:15 Novolog Vial Sliding Scale - SQ Not Given ACHS [facility] Protocol Pantoprazole Sodium 40 mg 07/21/19 10:00 07/21/19 09:53 Protonix Iv IVPUSH 40 mg DAILY SILVINO Administration ASSESSMENT/PLAN: # Rectal bleeding R/O Lower GI Bleed - Bleed likely due to multiple etiologies, prolapse, friability, asa use - FOBT + - H&H: 8.9/26.6 Q6H ordered, (was discharged with 9.2 last admission)would not transfuse unless patient actively bleeding or Hg falls under 8 - IV N/S @ 75 started, will hydrate gently due to age (last Echo 55-60 done earlier this month) - Type and screen - Pantoprazole 40mg IV OD started -NPO. hold PO meds. #Iron def Anemia -likely due to chronic bleeding likely from multiple etiologies that include residual rectal prolapse repair site friablity, suspected small bowel vascular ectasias and possible large hiatal hernia [place] ulcers per GI -s/p 2 Units PRBC last admission. (07/04 and 07/08). s/p 1x venofer. -give venofer today -Pantoprazole BID -discharge on Iron -monitor h/h #Right arm DVT -no heparin at this time due to bleed. was found last admission -+FOBT -repeat Duplex #Type 2 DM #HTN #HLD #History of TIA-aspirin held #Dvt ppx -no hep at this time Visit type - Emergency Visit Emergency Visit: Yes ED Registration Date: 07/21/19 Care time: The patient presented to the Emergency Department on the above date and was hospitalized for further evaluation of their emergent condition. - New Patient This patient is new to me today: Yes Date on this admission: 07/21/19 - Critical Care Critical Care patient: No ATTENDING PHYSICIAN STATEMENT I saw and evaluated the patient. I reviewed the resident's note and discussed the case with the resident. I agree with the resident's findings and plan as documented. SUBJECTIVE: OBJECTIVE: ASSESSMENT AND PLAN:
--- NOTE | 2019-07-21 14:38 | PN ---
Teaching Attending Note Name of Resident: Joanne Fields ATTENDING PHYSICIAN STATEMENT I saw and evaluated the patient. I reviewed the resident's note and discussed the case with the resident. I agree with the resident's findings and plan as documented. SUBJECTIVE: Patient remained hematologically stable OBJECTIVE: Vital Signs Temperature 98.7 F 07/21/19 10:00 Pulse Rate 100 H 07/21/19 10:00 Respiratory Rate 18 07/21/19 10:00 Blood Pressure 132/72 07/21/19 10:00 O2 Sat by Pulse Oximetry (%) 100 07/21/19 09:00 General: Elderly woman, comfortable, not in distress HEENT; mucous membranes moist, no anemia, no jaundice, PERRLA, no nystagmus Neck: No JVD, supple, no bruit, thyroid palpably normal, normal carotid pulsations. Chest: Nontender, clear to auscultation bilaterally/bilateral wheezing/ bilateral basal rales. CVS: S1-S2 regular/irregular no murmur/gallop/rub Abdomen: bright red blood in the rectum, no active bleeding, nondistended, soft , bowel sounds present. Extremities: Stage III sacral decubitus, stage II heel decubitus no edema., No cough tenderness, pulses present GRAIN MERCHANDISING MANAGER: Nonverbal, oriented to self CBC, BMP 07/21/19 09:00 07/21/19 09:00 Active Medications Sodium Chloride (Normal Saline -) 1,000 mls @ 75 mls/hr IV ASDIR SILVINO Last Admin: 07/21/19 07:15 Dose: 75 mls/hr Insulin Aspart (Novolog Vial Sliding Scale -) 1 vial SQ ACHS [facility]; Protocol Last Admin: 07/21/19 12:36 Dose: Not Given Pantoprazole Sodium (Protonix Iv) 40 mg IVPUSH BID [facility] ASSESSMENT AND PLAN:89 year old female with PMH of HLD, DM, hypothyroidism, GERD , and dementia. She is non verbal and AOx0, her daughter was available at bedside to provide a history. She states that she was with the patient at her place of residence, [facility] this evening, and left at night. She received a call from the [place] at 2AM and was informed that the patient had a bloody BM and was being taken to [facility]. Problem List - Problems (1) [place] (blood per rectum) Assessment/Plan: In the past history of rectal polyps and diverticulosis patient was on aspirin possibility of diverticular bleed as patient is prior treatment per rectum H&H is stable, type and screen was performed in the ER, patient has a stable H&H. Problems reviewed: Yes Code(s): K62.5 - HEMORRHAGE OF ANUS AND RECTUM (2) Hypertension Assessment/Plan: Well-controlled will continue oral blood pressure medication if indicated. Problems reviewed: Yes Code(s): I10 - ESSENTIAL (PRIMARY) HYPERTENSION (3) Dementia Assessment/Plan: Chronic at baseline nonverbal Problems reviewed: Yes Code(s): F03.90 - UNSPECIFIED DEMENTIA WITHOUT BEHAVIORAL DISTURBANCE (4) Hypercholesterolemia Assessment/Plan: Continue statin once able to tolerate p.o. Problems reviewed: Yes Code(s): E78.00 - PURE HYPERCHOLESTEROLEMIA, UNSPECIFIED (5) DVT of upper extremity (deep vein thrombosis) Assessment/Plan: During previous hospitalization diagnosis right upper extremity DVT at present no upper extremity swelling please repeat Doppler patient is not anticoagulation due to GI bleed. Problems reviewed: Yes Code(s): I82.629 - ACUTE EMBOLISM AND THROMBOSIS OF DEEP VN UNSP UP EXTREM (6) Hypothyroid Assessment/Plan: Continue levothyroxine will start tolerating p.o. Problems reviewed: Yes Code(s): E03.9 - HYPOTHYROIDISM, UNSPECIFIED (7) Type 2 diabetes mellitus Assessment/Plan: Patient is n.p.o. continue Accu-Chek every 6 hourly and fingersticks start on D5 half-normal saline once fingersticks drop less than 150 Problems reviewed: Yes Code(s): E11.9 - TYPE 2 DIABETES MELLITUS WITHOUT COMPLICATIONS (8) Sacral decubitus ulcer, stage III Assessment/Plan: Patient is a stage III sacral decubitus needs wound care ulcer base looks healthy. Problems reviewed: Yes Code(s): L89.153 - PRESSURE ULCER OF SACRAL REGION, STAGE 3
[2019-07-21] MEDS ORDERED: MAGNESIUM SULF 50% (8.12 MEQ/2 ML-1 GM VIAL) IVPB ONE ×2 (15:00→21:15)
[2019-07-21] MEDS ORDERED: IRON SUCROSE INJECTION 200 MG in SODIUM CHLORIDE 90 ML IVPB ONE (15:03)
[2019-07-21 16:28] LABS: BASO % 0.6 % (0-2.0); EOS % 2.3 % (0-4.5); HEMATOCRIT 26.3 % (32.4-45.2); HEMOGLOBIN 8.7 GM/dL (10.7-15.3); LYMPH % 29.3 % (8-40); MCH 30.1 pg (25.7-33.7); MCHC 33.1 g/dl (32.0-36.0); MEAN CELL VOLUME 90.9 fl (80-96); MEAN PLT VOLUME 6.9 fl (7.5-11.1); MONO % 12.1 % (3.8-10.2); NEUT % 55.7 % (42.8-82.8); PLATELET COUNT 381 K/MM3 (134-434); RBC 2.89 M/mm3 (3.60-5.2); RDW 14.9 % (11.6-15.6); WHITE BLOOD COUNT 4.2 K/mm3 (4.0-10.0)
[2019-07-21 17:59] VITALS: BMI 21.9
--- NOTE | 2019-07-21 18:54 | CON.GI ---
Consult Consult Specialty:: Gastroenterology Referred by:: Gilson Schneider MD Reason for Consultation:: rectal bleed - History of Present Illness Chief Complaint: unable to offer a complaint History of Present Illness: 89F is transferred from the [place] after an episode of hematochezia. Apparently she has only had a single episode. She was recently seen at [facility] for rectal bleeding. I refer to you that consultation for detailed history. Her son refused a colonoscopy during her past visit and previously. - History Source History Provided By: Medical Record Limitations to Obtaining History: Dementia - Past Medical History SR. OPERATIONS MANAGER: Yes: Dementia, TIA Cardio/Vascular: Yes: HTN, Hyperlipdemia Pulmonary: Yes: Bronchitis, Sleep Apnea, Other (Bronchiectasis) Gastrointestinal: Yes: Diverticulosis, GERD (with Schatzki ring), Hiatal Hernia (large), Other (rectal prolapse despite repair and bladder suspension procedure) Hepatobiliary: Yes: Cholelithiasis Renal/: Yes: Renal Calculi ...: No Psych: Yes: Anxiety, Schizophrenia Rheumatology: Yes: Other (chondrocalcinosis) Endocrine: Yes: Diabetes Mellitus, Hypothyroidism - Past Surgical History Past Surgical History: Yes: Cataract Removal, Colonoscopy, Tonsillectomy, Upper Endoscopy Additional Surgical History: Rectal prolapse repair x 3, the final was at [facility] and was successful - Alcohol/Substance Use Hx Alcohol Use: No History of Substance Use: reports: None - Smoking History Smoking history: Never smoked Have you smoked in the past 12 months: No Aproximately how many cigarettes per day: 0 - Social History Usual Living Arrangement: Assisted ADL: Family Assistance 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 History of Recent Travel: No Home Medications - Allergies Allergies/Adverse Reactions: Allergies Allergy/AdvReac Type Severity Reaction Status Date / Time No Known Allergies Allergy Verified 07/21/19 03:03 - Home Medications Home Medications: Ambulatory Orders Levothyroxine [Synthroid -] 75 mcg PO DAILY #0 tablet 06/14/13 Metoprolol Succinate [Toprol XL -] 25 mg PO DAILY #0 tab.sr.24h 06/14/13 Multivit-Min/FA/Lycopene/Lut [Centrum Silver Tablet] 1 each PO DAILY #0 tablet 06/14/13 Quinapril HCl [Accupril -] 40 mg PO DAILY #0 tablet 06/14/13 Ascorbic Acid [Vitamin C -] 500 mg PO DAILY #30 tablet 06/20/14 Memantine HCl [Namenda -] 20 mg PO HS 01/22/16 Metformin HCl [Riomet] 750 mg PO BID 01/22/16 Atorvastatin Ca [Lipitor] 10 mg PO HS tablet 07/15/19 Alprazolam [Xanax] 0.5 mg PO HS 07/21/19 Vitamin B Complex [B Complex] 1 each PO DAILY 07/21/19 Review of Systems Unable to obtain ROS, reason: dementia Physical Exam-GI Vital Signs: Vital Signs Temperature 99.3 F 07/21/19 15:00 Pulse Rate 76 07/21/19 15:00 Respiratory Rate 18 07/21/19 15:00 Blood Pressure 176/76 H 07/21/19 15:00 O2 Sat by Pulse Oximetry (%) 100 07/21/19 09:00 CBC,CMP WBC 4.2 K/mm3 (4.0-10.0) 07/21/19 16:00 RBC 2.89 M/mm3 (3.60-5.2) L 07/21/19 16:00 Hgb 8.7 GM/dL (10.7-15.3) L 07/21/19 16:00 Hct 26.3 % (32.4-45.2) L 07/21/19 16:00 MCV 90.9 fl (80-96) 07/21/19 16:00 MCH 30.1 pg (25.7-33.7) 07/21/19 16:00 MCHC 33.1 g/dl (32.0-36.0) 07/21/19 16:00 RDW 14.9 % (11.6-15.6) 07/21/19 16:00 Plt Count 381 K/MM3 (134-434) 07/21/19 16:00 MPV 6.9 fl (7.5-11.1) L 07/21/19 16:00 Absolute Neuts (auto) 2.3 K/mm3 (1.5-8.0) 07/21/19 16:00 Neutrophils % 55.7 % (42.8-82.8) 07/21/19 16:00 Lymphocytes % 29.3 % (8-40) D 07/21/19 16:00 Monocytes % 12.1 % (3.8-10.2) H 07/21/19 16:00 Eosinophils % 2.3 % (0-4.5) 07/21/19 16:00 Basophils % 0.6 % (0-2.0) 07/21/19 16:00 Nucleated RBC % 0 % (0-0) 07/21/19 16:00 Sodium 142 mmol/L (136-145) 07/21/19 09:00 Potassium 4.0 mmol/L (3.5-5.1) 07/21/19 09:00 Chloride 111 mmol/L (98-107) H 07/21/19 09:00 Carbon Dioxide 26 mmol/L (21-32) 07/21/19 09:00 Anion Gap 5 MMOL/L (8-16) L 07/21/19 09:00 BUN 24.4 mg/dL (7-18) H 07/21/19 09:00 Creatinine 0.8 mg/dL (0.55-1.3) 07/21/19 09:00 Est GFR (CKD-EPI)AfAm 75.76 07/21/19 09:00 Est GFR (CKD-EPI)NonAf 65.36 07/21/19 09:00 POC Glucometer 90 UNITS (80-120) 07/21/19 17:28 Random Glucose 105 mg/dL (74-106) 07/21/19 09:00 Calcium 8.4 mg/dL (8.5-10.1) L 07/21/19 09:00 Phosphorus 3.0 mg/dL (2.5-4.9) 07/21/19 09:00 Magnesium 1.5 mg/dL (1.8-2.4) L 07/21/19 09:00 Iron 30 ug/dL (50-175) L 07/21/19 09:00 TIBC 385 ug/dL (250-450) 07/21/19 09:00 Iron Saturation 7 % (17.5-39) L 07/21/19 09:00 Unsaturated IBC 355 ug/dL (200-275) H 07/21/19 09:00 Total Bilirubin 0.2 mg/dL (0.2-1) 07/21/19 09:00 AST 22 U/L (15-37) 07/21/19 09:00 ALT 16 U/L (13-61) 07/21/19 09:00 Alkaline Phosphatase 122 U/L (45-117) H 07/21/19 09:00 Creatine Kinase 88 U/L (26-192) 07/21/19 03:35 Troponin I < 0.02 ng/ml (0.00-0.05) 07/21/19 03:35 Total Protein 5.8 g/dl (6.4-8.2) L 07/21/19 09:00 Albumin 2.2 g/dl (3.4-5.0) L 07/21/19 09:00 Current Medications Generic Name Dose Route Start Last Admin Trade Name Christianoq PRN Reason Stop Dose Admin Sodium Chloride 1,000 mls @ 75 mls/hr 07/21/19 07:00 07/21/19 07:15 Normal Saline - IV 75 mls/hr ASDIR SILVINO Administration Insulin Aspart 1 vial 07/21/19 07:00 07/21/19 17:31 Novolog Vial Sliding Scale - SQ Not Given ACHS SILVINO Protocol Pantoprazole Sodium 40 mg 07/21/19 22:00 Protonix Iv IVPUSH BID SILVINO Constitutional: Yes: Calm, Other (non communicative today) Eyes: Yes: Conjunctiva Clear HENT: Yes: Normocephalic Neck: Yes: Trachea Midline Cardiovascular: Yes: Regular Rate and Rhythm Respiratory: Yes: CTA Bilaterally Gastrointestinal Inspection: Yes: WNL ...Auscultate: Yes: Hypoactive Bowel Sounds ...Palpate: Yes: Soft, Other (nontnder) ...Rectal Exam: Yes: Hemorrhoids/External (friable external hemorrhoids with dried blood, no rectal vault masses or prolapse) Labs: CBC, BMP 07/21/19 16:00 07/21/19 09:00 INR, PTT INR 1.17 (0.83-1.09) H 07/21/19 09:00 Problem List - Problems (1) Hematochezia Code(s): K92.1 - MELENA (2) DVT of upper extremity (deep vein thrombosis) Code(s): I82.629 - ACUTE EMBOLISM AND THROMBOSIS OF DEEP VN UNSP UP EXTREM (3) Hypothyroid Code(s): E03.9 - HYPOTHYROIDISM, UNSPECIFIED (4) Type 2 diabetes mellitus Code(s): E11.9 - TYPE 2 DIABETES MELLITUS WITHOUT COMPLICATIONS (5) Anemia due to gastrointestinal blood loss Code(s): D50.0 - IRON DEFICIENCY ANEMIA SECONDARY TO BLOOD LOSS (CHRONIC) (6) Constipation Code(s): K59.00 - CONSTIPATION, UNSPECIFIED (7) Dementia Code(s): F03.90 - UNSPECIFIED DEMENTIA WITHOUT BEHAVIORAL DISTURBANCE (8) Diverticulosis Code(s): K57.90 - DVRTCLOS OF INTEST, PART UNSP, W/O PERF OR ABSCESS W/O BLEED (9) Hypernatremia Code(s): E87.0 - HYPEROSMOLALITY AND HYPERNATREMIA (10) Hypertension Code(s): I10 - ESSENTIAL (PRIMARY) HYPERTENSION (11) Hypothyroidism Code(s): E03.9 - HYPOTHYROIDISM, UNSPECIFIED (12) NSTEMI (non-ST elevated myocardial infarction) Code(s): I21.4 - NON-ST ELEVATION (NSTEMI) MYOCARDIAL INFARCTION (13) Rectal mucosa prolapse Code(s): K62.3 - RECTAL PROLAPSE Assessment/Plan Assessment - Rectal bleeding due to hemorrhoids. Bleeding from diverticulosis, vascular ectasias and ischemic colitis could be hourly and cause a drop in Hb. I cannot exclude bleeding from a stercoral ulcer or neoplasm so I have offered her son Andrés Melvin to undergo a colonoscopy and again discussed the potential complications including perforation and hemorrhage and the need for a bowel prep. He is declining at present Plan: -- MIralax -- Follow CBCs -- If bleeding increases will again discuss colonoscopy
[2019-07-21 21:06] LABS: BASO % 0.5 % (0-2.0); EOS % 2.2 % (0-4.5); HEMATOCRIT 24.9 % (32.4-45.2); HEMOGLOBIN 8.1 GM/dL (10.7-15.3); MCH 29.6 pg (25.7-33.7); MCHC 32.7 g/dl (32.0-36.0); MEAN CELL VOLUME 90.4 fl (80-96); MONO % 11.6 % (3.8-10.2); NEUT % 55.7 % (42.8-82.8); PLATELET COUNT 358 K/MM3 (134-434); RBC 2.75 M/mm3 (3.60-5.2); RDW 14.9 % (11.6-15.6); WHITE BLOOD COUNT 4.1 K/mm3 (4.0-10.0)
[2019-07-21] MEDS: PANTOPRAZOLE SODIUM 40 MG VIAL IVPUSH SCH (21:26)
[2019-07-21] MEDS ORDERED: DEXTROSE 5%-0.45% SALINE 1,000 ML IV SCH (21:45)
[2019-07-22 03:54] LABS: BASO % 1.4 % (0-2.0); HEMATOCRIT 24.2 % (32.4-45.2); HEMOGLOBIN 7.9 GM/dL (10.7-15.3); LYMPH % 26.7 % (8-40); MCH 29.5 pg (25.7-33.7); MCHC 32.7 g/dl (32.0-36.0); MEAN CELL VOLUME 90.4 fl (80-96); MEAN PLT VOLUME 6.8 fl (7.5-11.1); MONO % 13.1 % (3.8-10.2); NEUT % 56.8 % (42.8-82.8); PLATELET COUNT 361 K/MM3 (134-434); RBC 2.67 M/mm3 (3.60-5.2); RDW 14.8 % (11.6-15.6); WHITE BLOOD COUNT 4.4 K/mm3 (4.0-10.0)
[2019-07-22] MEDS: INSULIN SLIDING SCALE (NOVOLOG) 1 VIAL SQ SCH ×4 (06:18→23:07)
[2019-07-22 08:52] LABS: BASO % 0.5 % (0-2.0); EOS % 1.9 % (0-4.5); HEMATOCRIT 23.4 % (32.4-45.2); HEMOGLOBIN 7.8 GM/dL (10.7-15.3); LYMPH % 22.3 % (8-40); MCHC 33.3 g/dl (32.0-36.0); MEAN PLT VOLUME 6.9 fl (7.5-11.1); MONO % 11.3 % (3.8-10.2); PLATELET COUNT 345 K/MM3 (134-434); RDW 14.6 % (11.6-15.6); WHITE BLOOD COUNT 4.1 K/mm3 (4.0-10.0)
[2019-07-22 09:13] LABS: ALBUMIN 2.1 g/dl (3.4-5.0); BILIRUBIN,TOTAL 0.2 mg/dL (0.2-1); BLOOD UREA NITROGEN 14.4 mg/dL (7-18); CALCIUM 8.4 mg/dL (8.5-10.1); CREATININE 0.6 mg/dL (0.55-1.3); POTASSIUM 3.9 mmol/L (3.5-5.1); TOT PROT 5.6 g/dl (6.4-8.2)
--- NOTE | 2019-07-22 09:46 | PN ---
Progress Note, Physician - Current Medication List Current Medications: Active Medications Dextrose/Sodium Chloride (D5-1/2ns -) 1,000 mls @ 75 mls/hr IV ASDIR [facility] Last Admin: 07/21/19 21:52 Dose: 75 mls/hr Insulin Aspart (Novolog Vial Sliding Scale -) 1 vial SQ ACHS [facility]; Protocol Last Admin: 07/22/19 06:18 Dose: Not Given Pantoprazole Sodium (Protonix Iv) 40 mg IVPUSH BID [facility] Last Admin: 07/21/19 21:26 Dose: 40 mg Polyethylene Glycol (Miralax (For Daily Use) -) 17 gm PO DAILY [facility] - Objective Vital Signs: Vital Signs Temperature 98.1 F 07/22/19 07:05 Pulse Rate 70 07/22/19 07:05 Respiratory Rate 48 H 07/22/19 07:05 Blood Pressure 153/69 07/22/19 07:05 O2 Sat by Pulse Oximetry (%) 98 07/21/19 21:00 General: Elderly woman, comfortable, not in distress HEENT; mucous membranes moist, no anemia, no jaundice, PERRLA, no nystagmus Neck: No JVD, supple, no bruit, thyroid palpably normal, normal carotid pulsations. Chest: Nontender, clear to auscultation bilaterally/bilateral wheezing/ bilateral basal rales. CVS: S1-S2 regular/irregular no murmur/gallop/rub Abdomen: bright red blood in the rectum, no active bleeding, nondistended, soft , bowel sounds present. 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: Nonverbal, oriented to self Labs: CBC, BMP 07/22/19 08:05 07/22/19 08:05 INR, PTT INR 1.17 (0.83-1.09) H 07/21/19 09:00 Problem List - Problems (1) [place] (blood per rectum) Code(s): K62.5 - HEMORRHAGE OF ANUS AND RECTUM (2) Hypertension Code(s): I10 - ESSENTIAL (PRIMARY) HYPERTENSION (3) Dementia Code(s): F03.90 - UNSPECIFIED DEMENTIA WITHOUT BEHAVIORAL DISTURBANCE (4) Hypercholesterolemia Code(s): E78.00 - PURE HYPERCHOLESTEROLEMIA, UNSPECIFIED (5) DVT of upper extremity (deep vein thrombosis) Code(s): I82.629 - ACUTE EMBOLISM AND THROMBOSIS OF DEEP VN UNSP UP EXTREM (6) Hypothyroid Code(s): E03.9 - HYPOTHYROIDISM, UNSPECIFIED (7) Type 2 diabetes mellitus Code(s): E11.9 - TYPE 2 DIABETES MELLITUS WITHOUT COMPLICATIONS (8) Sacral decubitus ulcer, stage III Code(s): L89.153 - PRESSURE ULCER OF SACRAL REGION, STAGE 3
--- NOTE | 2019-07-22 09:47 | PN ---
Teaching Attending Note Name of Resident: Joanne Fields ATTENDING PHYSICIAN STATEMENT I saw and evaluated the patient. I reviewed the resident's note and discussed the case with the resident. I agree with the resident's findings and plan as documented. SUBJECTIVE: OBJECTIVE: Vital Signs Temperature 98.1 F 07/22/19 07:05 Pulse Rate 70 07/22/19 07:05 Respiratory Rate 48 H 07/22/19 07:05 Blood Pressure 153/69 07/22/19 07:05 O2 Sat by Pulse Oximetry (%) 98 07/21/19 21:00 General: Elderly woman, comfortable, not in distress HEENT; mucous membranes moist, no anemia, no jaundice, PERRLA, no nystagmus Neck: No JVD, supple, no bruit, thyroid palpably normal, normal carotid pulsations. Chest: Nontender, clear to auscultation bilaterally/bilateral wheezing/ bilateral basal rales. CVS: S1-S2 regular/irregular no murmur/gallop/rub Abdomen: bright red blood in the rectum, no active bleeding, nondistended, soft , bowel sounds present. Extremities: Stage III sacral decubitus, stage II heel decubitus no edema., No cough tenderness, pulses present WOOD HEEL BACK LINER: Nonverbal, oriented to self ASSESSMENT AND PLAN: Problem List - Problems (1) [place] (blood per rectum) Assessment/Plan: In the past history of rectal polyps and diverticulosis patient was on aspirin possibility of diverticular bleed as patient is prior treatment per rectum H&H is stable, type and screen was performed in the ER, patient has a stable H&H. Evaluated by GI recommended close observation colonoscopy significant drop in H& H. Code(s): K62.5 - HEMORRHAGE OF ANUS AND RECTUM (2) Hypertension Assessment/Plan: Well-controlled will continue oral blood pressure medication if indicated. Code(s): I10 - ESSENTIAL (PRIMARY) HYPERTENSION (3) Dementia Assessment/Plan: Chronic at baseline nonverbal Code(s): F03.90 - UNSPECIFIED DEMENTIA WITHOUT BEHAVIORAL DISTURBANCE (4) Hypercholesterolemia Assessment/Plan: Continue statin once able to tolerate p.o. Code(s): E78.00 - PURE HYPERCHOLESTEROLEMIA, UNSPECIFIED (5) DVT of upper extremity (deep vein thrombosis) Assessment/Plan: During previous hospitalization diagnosis right upper extremity DVT at present no upper extremity swelling please repeat Doppler patient is not anticoagulation due to GI bleed. Code(s): I82.629 - ACUTE EMBOLISM AND THROMBOSIS OF DEEP VN UNSP UP EXTREM (6) Hypothyroid Assessment/Plan: Continue levothyroxine will start tolerating p.o. Code(s): E03.9 - HYPOTHYROIDISM, UNSPECIFIED (7) Type 2 diabetes mellitus Assessment/Plan: Patient is n.p.o. continue Accu-Chek every 6 hourly and fingersticks start on D5 half-normal saline once fingersticks drop less than 150 Code(s): E11.9 - TYPE 2 DIABETES MELLITUS WITHOUT COMPLICATIONS (8) Sacral decubitus ulcer, stage III Assessment/Plan: Patient is a stage III sacral decubitus needs wound care ulcer base looks healthy. Code(s): L89.153 - PRESSURE ULCER OF SACRAL REGION, STAGE 3 (9) Anemia Assessment/Plan: Chronic anemia presents with lower GI bleed, H&H remained stable on IV and multivitamins Problems reviewed: Yes Code(s): D64.9 - ANEMIA, UNSPECIFIED
[2019-07-22] MEDS: POLYETHYLENE GLYCOL 3350 119 GM BTL PO SCH (10:00)
[2019-07-22] MEDS: PANTOPRAZOLE SODIUM 40 MG VIAL IVPUSH SCH ×2 (10:01→23:07)
[2019-07-22] MEDS ORDERED: DEXTROSE 5%-0.45% SALINE 1,000 ML IV SCH (13:32)
--- NOTE | 2019-07-22 13:35 | PN ---
Physical Exam: SUBJECTIVE: Patient seen and examined. No events overnight. No further bleeding per nurse. OBJECTIVE: Vital Signs Period Temp Pulse Resp BP Sys/Tolentino Pulse Ox Last 24 Hr 97.7 F-99.5 F 69-80 18-48 128-176/66-81 98-99 GENERAL: in NAD, nonverbal EYES: PERRL, sclera anicteric ENT: moist mucous membranes. NECK: supple. LUNGS: decreased breath sounds, no accessory muscle use. HEART: RRR ABDOMEN: Soft, nontender, nondistended, normoactive bowel sounds EXTREMITIES: 2+ pulses, no edema. Laboratory Results - last 24 hr 07/21/19 07/21/19 07/21/19 16:00 17:28 20:30 WBC 4.2 4.1 RBC 2.89 L 2.75 L Hgb 8.7 L 8.1 L Hct 26.3 L 24.9 L MCV 90.9 90.4 MCH 30.1 29.6 MCHC 33.1 32.7 RDW 14.9 14.9 Plt Count 381 358 MPV 6.9 L 7.0 L Absolute Neuts (auto) 2.3 2.3 Neutrophils % 55.7 55.7 Lymphocytes % 29.3 D 30.0 Monocytes % 12.1 H 11.6 H Eosinophils % 2.3 2.2 Basophils % 0.6 0.5 Nucleated RBC % 0 0 Sodium Potassium Chloride Carbon Dioxide Anion Gap BUN Creatinine Est GFR (CKD-EPI)AfAm Est GFR (CKD-EPI)NonAf POC Glucometer 90 Random Glucose Calcium Total Bilirubin AST ALT Alkaline Phosphatase Total Protein Albumin 07/21/19 07/22/19 07/22/19 21:35 03:38 06:17 WBC 4.4 RBC 2.67 L Hgb 7.9 L Hct 24.2 L MCV 90.4 MCH 29.5 MCHC 32.7 RDW 14.8 Plt Count 361 MPV 6.8 L Absolute Neuts (auto) 2.5 Neutrophils % 56.8 Lymphocytes % 26.7 Monocytes % 13.1 H Eosinophils % 2.0 Basophils % 1.4 Nucleated RBC % 0 Sodium Potassium Chloride Carbon Dioxide Anion Gap BUN Creatinine Est GFR (CKD-EPI)AfAm Est GFR (CKD-EPI)NonAf POC Glucometer 79 104 Random Glucose Calcium Total Bilirubin AST ALT Alkaline Phosphatase Total Protein Albumin 0107/22/19 07/22/19 08:05 08:05 12:30 WBC 4.1 RBC 2.60 L Hgb 7.8 L Hct 23.4 L MCV 90.0 MCH 30.0 MCHC 33.3 RDW 14.6 Plt Count 345 MPV 6.9 L Absolute Neuts (auto) 2.6 Neutrophils % 64.0 Lymphocytes % 22.3 Monocytes % 11.3 H Eosinophils % 1.9 Basophils % 0.5 Nucleated RBC % 0 Sodium 140 Potassium 3.9 Chloride 108 H Carbon Dioxide 26 Anion Gap 5 L BUN 14.4 Creatinine 0.6 Est GFR (CKD-EPI)AfAm 93.66 Est GFR (CKD-EPI)NonAf 80.81 POC Glucometer 118 Random Glucose 112 H Calcium 8.4 L Total Bilirubin 0.2 AST 21 ALT 15 Alkaline Phosphatase 110 Total Protein 5.6 L Albumin 2.1 L Active Medications Generic Name Dose Route Start Last Admin Trade Name Freq PRN Reason Stop Dose Admin Dextrose/Sodium Chloride 1,000 mls @ 75 mls/hr 07/21/19 21:45 07/21/19 21:52 D5-1/2ns - IV 75 mls/hr ASDIR SILVINO Administration Insulin Aspart 1 vial 07/21/19 07:00 07/22/19 12:31 Novolog Vial Sliding Scale - SQ Not Given ACHS SILVINO Protocol Pantoprazole Sodium 40 mg 07/21/19 22:00 07/22/19 10:01 Protonix Iv IVPUSH 40 mg BID SILVINO Administration Polyethylene Glycol 17 gm 07/22/19 10:00 07/22/19 10:00 Miralax (For Daily Use) - PO Not Given DAILY SILVINO ASSESSMENT/PLAN: # Rectal bleeding R/O Lower GI Bleed -no episodes of bleeding by nurses -Bleed likely due to multiple etiologies, prolapse, friability, asa use. -Per GI Rectal bleeding due to hemorrhoids. Bleeding from diverticulosis, vascular ectasias and ischemic colitis could be hourly and cause a drop in Hb. -Hgb slowly trending now. currently 7.8 -monitor H&H -D5 1/2 NS @ 50 (last Echo 55-60 done earlier this month) -cont Pantoprazole 40mg -FOBT+ -resume puree diet -colonoscopy discussed with family by GI, currently declining. #Iron def Anemia -likely due to chronic bleeding likely from multiple etiologies that include residual rectal prolapse repair site friablity, suspected small bowel vascular ectasias and possible large hiatal hernia [place] ulcers per GI -s/p 2 Units PRBC last admission. (07/04 and 07/08). s/p 1x venofer. -Pantoprazole BID -discharge on Iron -monitor h/h #Right arm DVT -no heparin at this time due to bleed. was found last admission -+FOBT -repeat Duplex #Type 2 DM #HTN #HLD #History of TIA-aspirin held #Dvt ppx -no hep at this time Visit type - Emergency Visit Emergency Visit: Yes ED Registration Date: 07/21/19 Care time: The patient presented to the Emergency Department on the above date and was hospitalized for further evaluation of their emergent condition. - New Patient This patient is new to me today: Yes Date on this admission: 07/22/19 - Critical Care Critical Care patient: No ATTENDING PHYSICIAN STATEMENT I saw and evaluated the patient. I reviewed the resident's note and discussed the case with the resident. I agree with the resident's findings and plan as documented. SUBJECTIVE: OBJECTIVE: ASSESSMENT AND PLAN:
[2019-07-22 16:00] LABS: URINE APPEARANCE CLEAR; URINE BILIRUBIN NEGATIVE (NEGATIVE); URINE COLOR YELLOW; URINE GLUCOSE (UA) NEGATIVE (NEGATIVE); URINE KETONE NEGATIVE (NEGATIVE); URINE LEUK ESTERASE NEGATIVE (NEGATIVE); URINE NITRITE NEGATIVE (NEGATIVE); URINE PROTEIN NEGATIVE (NEGATIVE); URINE UROBILINOGEN 0.2 mg/dL (0.2-1.0)
--- NOTE | 2019-07-22 22:25 | PN.GI ---
GI Progress Note Subjective: GI NOte: Hb is dwindling despite Ngozi having no BMs or over rectal bleeding - Objective Vital Signs: Vital Signs Temperature 98.9 F 07/22/19 18:15 Pulse Rate 77 07/22/19 18:15 Respiratory Rate 19 07/22/19 18:15 Blood Pressure 149/68 07/22/19 18:15 O2 Sat by Pulse Oximetry (%) 97 07/22/19 09:00 Laboratory Tests 07/14/19 07/15/19 07/21/19 06:37 06:43 03:35 Hgb 8.4 L 9.3 L 8.9 L 07/21/19 07/21/19 07/21/19 09:00 16:00 20:30 Hgb 8.2 L 8.7 L 8.1 L 07/22/19 07/22/19 03:38 08:05 Hgb 7.9 L 7.8 L Constitutional: Calm ...Auscultate: Yes: Normoactive Bowel Sounds ...Palpate: Yes: Soft, Other (nontender) Labs: CBC, BMP 07/22/19 08:05 07/22/19 08:05 INR, PTT INR 1.17 (0.83-1.09) H 07/21/19 09:00 Assessment/Plan Assessment - Rectal bleeding due to hemorrhoids. Bleeding from diverticulosis, vascular ectasias and ischemic colitis would be more obvious. Cannot exclude bleeding from a stercoral ulcer or neoplasm. Colonosocpy has been refused Plan: -- MIralax -- Follow CBCs, will likely need transfusion in the AM -- If bleeding increases will again discuss colonoscopy Problem List - Problems (1) Hematochezia Code(s): K92.1 - MELENA (2) DVT of upper extremity (deep vein thrombosis) Code(s): I82.629 - ACUTE EMBOLISM AND THROMBOSIS OF DEEP VN UNSP UP EXTREM (3) Hypothyroid Code(s): E03.9 - HYPOTHYROIDISM, UNSPECIFIED (4) Type 2 diabetes mellitus Code(s): E11.9 - TYPE 2 DIABETES MELLITUS WITHOUT COMPLICATIONS (5) Anemia due to gastrointestinal blood loss Code(s): D50.0 - IRON DEFICIENCY ANEMIA SECONDARY TO BLOOD LOSS (CHRONIC) (6) Constipation Code(s): K59.00 - CONSTIPATION, UNSPECIFIED (7) Dementia Code(s): F03.90 - UNSPECIFIED DEMENTIA WITHOUT BEHAVIORAL DISTURBANCE (8) Diverticulosis Code(s): K57.90 - DVRTCLOS OF INTEST, PART UNSP, W/O PERF OR ABSCESS W/O BLEED (9) Hypernatremia Code(s): E87.0 - HYPEROSMOLALITY AND HYPERNATREMIA (10) Hypertension Code(s): I10 - ESSENTIAL (PRIMARY) HYPERTENSION (11) Hypothyroidism Code(s): E03.9 - HYPOTHYROIDISM, UNSPECIFIED (12) NSTEMI (non-ST elevated myocardial infarction) Code(s): I21.4 - NON-ST ELEVATION (NSTEMI) MYOCARDIAL INFARCTION (13) Rectal mucosa prolapse Code(s): K62.3 - RECTAL PROLAPSE
[2019-07-23] MEDS: INSULIN SLIDING SCALE (NOVOLOG) 1 VIAL SQ SCH ×4 (07:10→23:02)
--- NOTE | 2019-07-23 08:39 | PN ---
Teaching Attending Note Name of Resident: Joanne Fields ATTENDING PHYSICIAN STATEMENT I saw and evaluated the patient. I reviewed the resident's note and discussed the case with the resident. I agree with the resident's findings and plan as documented. SUBJECTIVE: No bleeding per rectum since hospitalization patient remained at her baseline OBJECTIVE: Vital Signs Temperature 98.9 F 07/22/19 22:00 Pulse Rate 92 H 07/22/19 22:00 Respiratory Rate 20 07/22/19 22:00 Blood Pressure 162/82 07/22/19 22:00 O2 Sat by Pulse Oximetry (%) 96 07/22/19 21:00 General: Elderly woman, comfortable, not in distress HEENT; mucous membranes moist, no anemia, no jaundice, PERRLA, no nystagmus Neck: No JVD, supple, no bruit, thyroid palpably normal, normal carotid pulsations. Chest: Nontender, clear to auscultation bilaterally/bilateral wheezing/ bilateral basal rales. CVS: S1-S2 regular/irregular no murmur/gallop/rub Abdomen: bright red blood in the rectum, no active bleeding, nondistended, soft , bowel sounds present. 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: Nonverbal, oriented to self CBC, BMP 07/23/19 07:48 07/23/19 07:48 Active Medications Dextrose/Sodium Chloride (D5-1/2ns -) 1,000 mls @ 50 mls/hr IV ASDIR [facility] Last Admin: 07/22/19 17:02 Dose: 50 mls/hr Insulin Aspart (Novolog Vial Sliding Scale -) 1 vial SQ ACHS [facility]; Protocol Last Admin: 07/23/19 07:10 Dose: Not Given Metoprolol Succinate (Toprol Xl -) 25 mg PO DAILY [facility] Pantoprazole Sodium (Protonix Iv) 40 mg IVPUSH BID [facility] Last Admin: 07/22/19 23:07 Dose: 40 mg Polyethylene Glycol (Miralax (For Daily Use) -) 17 gm PO DAILY [facility] Last Admin: 07/22/19 10:00 Dose: Not Given Quinapril HCl (Accupril -) 40 mg PO DAILY [facility] Assessment and plan: 89 year old female with PMH of HLD, DM, hypothyroidism, GERD, and dementia. She is non verbal and AOx0, her daughter was available at bedside to provide a history. Patient was transferred from [facility] for evaluation of bright red blood per rectum, during the course of hospitalization there is no active bleeding, H&H are stable, evaluated by GI at present no plan for colonoscopy. Plan: Patient has no BM since hospitalization will start a bowel regimen will discuss with GI if patient is felt to be discharged back to [facility] Problem List - Problems (1) [place] (blood per rectum) Assessment/Plan: I patient has no active bleeding since hospitalization, no bowel movement for past 2 days abdomen is benign nondistended, H&H stable, will start bowel regimen follow-up with GI to discuss if patient can be discharged back to the [facility]. Code(s): K62.5 - HEMORRHAGE OF ANUS AND RECTUM (2) Hypertension Assessment/Plan: Well-controlled will continue oral blood pressure medication if indicated. Code(s): I10 - ESSENTIAL (PRIMARY) HYPERTENSION (3) Dementia Assessment/Plan: Chronic at baseline nonverbal Code(s): F03.90 - UNSPECIFIED DEMENTIA WITHOUT BEHAVIORAL DISTURBANCE (4) Hypercholesterolemia Assessment/Plan: Continue statin once able to tolerate p.o. Code(s): E78.00 - PURE HYPERCHOLESTEROLEMIA, UNSPECIFIED (5) DVT of upper extremity (deep vein thrombosis) Assessment/Plan: History of DVT right upper extremity not on any anticoagulation due to GI bleed. Code(s): I82.629 - ACUTE EMBOLISM AND THROMBOSIS OF DEEP VN UNSP UP EXTREM (6) Hypothyroid Assessment/Plan: Continue levothyroxine will start tolerating p.o. Code(s): E03.9 - HYPOTHYROIDISM, UNSPECIFIED (7) Type 2 diabetes mellitus Assessment/Plan: Patient is n.p.o. continue Accu-Chek every 6 hourly and fingersticks start on D5 half-normal saline once fingersticks drop less than 150 Code(s): E11.9 - TYPE 2 DIABETES MELLITUS WITHOUT COMPLICATIONS (8) Sacral decubitus ulcer, stage III Code(s): L89.153 - PRESSURE ULCER OF SACRAL REGION, STAGE 3 (9) Anemia Code(s): D64.9 - ANEMIA, UNSPECIFIED
[2019-07-23 08:44] LABS: BASO % 0.3 % (0-2.0); EOS % 1.5 % (0-4.5); HEMATOCRIT 25.8 % (32.4-45.2); HEMOGLOBIN 8.8 GM/dL (10.7-15.3); LYMPH % 23.2 % (8-40); MEAN CELL VOLUME 88.3 fl (80-96); MEAN PLT VOLUME 6.9 fl (7.5-11.1); MONO % 12.4 % (3.8-10.2); NEUT % 62.6 % (42.8-82.8); PLATELET COUNT 375 K/MM3 (134-434); RBC 2.92 M/mm3 (3.60-5.2); WHITE BLOOD COUNT 5.3 K/mm3 (4.0-10.0)
[2019-07-23] MEDS ORDERED: PT OWN MED DRAWER 7, Y5N ONE (09:00)
[2019-07-23 09:06] LABS: ALBUMIN 2.4 g/dl (3.4-5.0); BILIRUBIN,TOTAL 0.3 mg/dL (0.2-1); BLOOD UREA NITROGEN 10.1 mg/dL (7-18); CALCIUM 8.4 mg/dL (8.5-10.1); CREATININE 0.8 mg/dL (0.55-1.3); MAGNESIUM 1.2 mg/dL (1.8-2.4); PHOSPHOROUS 3.1 mg/dL (2.5-4.9); POTASSIUM 3.9 mmol/L (3.5-5.1); TOT PROT 6.1 g/dl (6.4-8.2)
[2019-07-23] MEDS: QUINAPRIL HCL 40 MG TABLET (FP) PO SCH (09:35)
[2019-07-23] MEDS: metoPROLOL SUCCINATE 25 MG TAB.SR.24H (FP) PO SCH (09:35)
[2019-07-23] MEDS: POLYETHYLENE GLYCOL 3350 119 GM BTL PO SCH (09:35)
[2019-07-23] MEDS: PANTOPRAZOLE SODIUM 40 MG VIAL IVPUSH SCH ×2 (09:35→23:03)
--- NOTE | 2019-07-23 11:35 | CONSULT ---
Admitting History and Physical - Primary Care Physician PCP: Alissa Em - Admission History of Present Illness: Per EMR- 89 year old female with PMH of HLD, DM, hypothyroidism, GERD, and dementia. She is non verbal and AOx0, her daughter was available at bedside to provide a history. She states that she was with the patient at her place of residence, [facility] this evening, and left at night. She received a call from the [place] at 2AM and was informed that the patient had a bloody BM and was being taken to [facility]. Family requesting diet upgrade from puree/honey thick liquid. Selected Entries 07/21/19 07/22/19 07/22/19 22:00 10:00 22:00 Supper NPO NPO 50% Temperature 07/23/19 09:09 Supper Temperature 98.2 F Laboratory Tests 07/21/19 07/23/19 03:35 07:48 WBC 5.1 5.3 CXR -LLL consolidation/PNA unchanged Seen last on 07/16/19, asked to reassess pt as family is asking for egg salad. Pt verbal, jargon, dysphonia. Tolerating puree/honey well. Suggest maintain diet as ordered at this time. Consider trial of egg custard, aspiration precautions. Pt was d/c'd on puree/honey thick liquid. Per transfer record, pt was on puree/nectar at [facility]. Pt accepted puree/honey today, with occasional cough noted on honey thick on tsp. History Source: Family Member (Per family, pt was able to eat reg food last month before admission), Medical Record Limitations to Obtaining History: Clinical Condition, Dementia - Past Medical History DIRECTOR OF INTERCOLLEGIATE ATHLETICS: Yes: Dementia, TIA Cardiovascular: Yes: HTN, Hyperlipdemia Pulmonary: Yes: Bronchitis, Sleep Apnea, Other (Bronchiectasis) Gastrointestinal: Yes: Diverticulosis, GERD (with Schatzki ring), Hiatal Hernia (large), Other (rectal prolapse despite repair and bladder suspension procedure) Hepatobiliary: Yes: Cholelithiasis Renal/: Yes: Renal Calculi ...: No Heme/Onc: Yes: Anemia Psych: Yes: Anxiety, Schizophrenia Rheumatology: Yes: Other (chondrocalcinosis) Endocrine: Yes: Diabetes Mellitus, Hypothyroidism - Past Surgical History Past Surgical History: Yes: Cataract Removal, Colonoscopy, Tonsillectomy, Upper Endoscopy - Advance Directives Advance Directives: Yes: Health Care Proxy - Smoking History Smoking history: Never smoked Have you smoked in the past 12 months: No Aproximately how many cigarettes per day: 0 - Alcohol/Substance Use Hx Alcohol Use: No History of Substance Use: reports: None - Social History ADL: Family Assistance 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 History of Recent Travel: No History - Admission Reason For Visit: RECTAL HEMORRHAGE - Diagnostics X-ray: Report Reviewed (CXR -LLL consolidation/PNA unchanged) - General Mental Status: Confused Attention: Mild Impairment Ability to Follow Directions: Poor Head/Neck Control: Needs Assist - Hearing Hearing: Impaired, Left Ear, Right Ear Hearing Aide: Yes With Patient: No Speech Evaluation - Communication Primary Language: TAMAZIGHT Communication: Yes: Non-Communicable (jargon, dysphonic) - Speech Production Able to Make Needs Known: Yes: Severely Impaired Intelligibility: Yes: Severely Impaired - Speech Characteristics Voice Loudness: Mildly Soft/Quiet Voice Pitch: Yes: Normal Voice Phonatory-based Quality: Yes: Breathy, Dysphonia Speech Pattern: Impaired Nasal Resonance: Normal - Language/Auditory Comprehension Observation: Able to respond to yes/no queries: Yes, Comprehends Conversational Speech: Yes (possibly social speech,simple directives?) - Language/Verbal Expression Able to Communicate Wants and Needs: Yes: Severely Impaired - Swallow Evaluation/Bedside Assessment Current Nutritional Intake: Dysphagia Pureed, Honey Textured Liquids Oral Secretions: Yes: WFL Dentition: Yes: Adequate Facial Symmetry at Rest: Symmetrical Laryngeal Movement: Labored,delay initiation Rate of Intake: Slow/Holding (intermittent) Bolus Size: Small Labial Seal: WFL Oral Prep Time: Increased Timing of Swallow: Delayed Coughing/Throat Clear: Yes (honey thick, occasional) Recommendations - Speech Evaluation, Impression/Plan Impression: CXR -LLL consolidation/PNA unchanged. Diet order puree/honey with occasional cough noted on honey thick on tsp. and low grade fever. Suspect possible intermittent aspiration. Defer diet upgrade. Reviewed with granddaughter. If improves, MBS as in pt or upon d/c to further assess for diet upgrade. - Disposition Discharge to: Detention Facility - Dysphagia Impressions/Plan Swallowing Skills: Impaired Dysphagia Impressions: Mild Impairment, Ongoing Evaluation, Suspect Aspiration *Silent aspiration: cannot be R/O at bedside Recommendations: Modified Barium Swallow (in future, when stronger) - Recommendations Diet Consistency: Dysphagia Pureed Medication Administration: Crushed with applesauce Liquids: Honey Thick (on tsp) Supplement: Magic Cup, Ensure Pudding
[2019-07-23] MEDS ORDERED: DOCUSATE SODIUM 100 MG CAPSULE (FP) PO PRN (11:39)
[2019-07-23] MEDS ORDERED: SENNOSIDES 8.6MG TABLET (FP) PO ONE (11:40)
[2019-07-23] MEDS ORDERED: IRON SUCROSE INJECTION 200 MG in SODIUM CHLORIDE 90 ML IVPB ONE (12:00)
--- NOTE | 2019-07-23 12:44 | PN ---
Physical Exam: SUBJECTIVE: Patient seen and examined. No events overnight. No bleeding reported. OBJECTIVE: Vital Signs Period Temp Pulse Resp BP Sys/Tolentino Pulse Ox Last 24 Hr 98.2 F-99.1 F 77-102 19-20 128-162/62-93 96 GENERAL: in NAD, nonverbal EYES: PERRL, sclera anicteric ENT: moist mucous membranes. NECK: supple. LUNGS: decreased breath sounds, no accessory muscle use. HEART: RRR ABDOMEN: Soft, nontender, nondistended, normoactive bowel sounds EXTREMITIES: 2+ pulses, no edema. Laboratory Results - last 24 hr 07/22/19 07/22/19 07/22/19 12:55 16:47 23:00 WBC RBC Hgb Hct MCV MCH MCHC RDW Plt Count MPV Absolute Neuts (auto) Neutrophils % Lymphocytes % Monocytes % Eosinophils % Basophils % Nucleated RBC % Sodium Potassium Chloride Carbon Dioxide Anion Gap BUN Creatinine Est GFR (CKD-EPI)AfAm Est GFR (CKD-EPI)NonAf POC Glucometer 122 155 Random Glucose Calcium Phosphorus Magnesium Total Bilirubin AST ALT Alkaline Phosphatase C-Reactive Protein Total Protein Albumin Urine Color Yellow Urine Appearance Clear Urine pH 5.0 D Ur Specific Morris 1.015 Urine Protein Negative Urine Glucose (UA) Negative Urine Ketones Negative Urine Blood Negative Urine Nitrite Negative Urine Bilirubin Negative Urine Urobilinogen 0.2 Ur Leukocyte Esterase Negative 07/23/19 07/23/19 07/23/19 07:09 07:48 07:48 WBC 5.3 RBC 2.92 L Hgb 8.8 L Hct 25.8 L MCV 88.3 MCH 30.0 MCHC 34.0 RDW 15.0 Plt Count 375 MPV 6.9 L Absolute Neuts (auto) 3.3 Neutrophils % 62.6 Lymphocytes % 23.2 Monocytes % 12.4 H Eosinophils % 1.5 Basophils % 0.3 Nucleated RBC % 0 Sodium 138 Potassium 3.9 Chloride 105 Carbon Dioxide 25 Anion Gap 8 BUN 10.1 Creatinine 0.8 Est GFR (CKD-EPI)AfAm 75.76 Est GFR (CKD-EPI)NonAf 65.36 POC Glucometer 155 Random Glucose 156 H Calcium 8.4 L Phosphorus 3.1 Magnesium 1.2 L Total Bilirubin 0.3 AST 25 ALT 18 Alkaline Phosphatase 114 C-Reactive Protein Total Protein 6.1 L Albumin 2.4 L Urine Color Urine Appearance Urine pH Ur Specific Morris Urine Protein Urine Glucose (UA) Urine Ketones Urine Blood Urine Nitrite Urine Bilirubin Urine Urobilinogen Ur Leukocyte Esterase 07/23/19 07/23/19 07:48 11:41 WBC RBC Hgb Hct MCV MCH MCHC RDW Plt Count MPV Absolute Neuts (auto) Neutrophils % Lymphocytes % Monocytes % Eosinophils % Basophils % Nucleated RBC % Sodium Potassium Chloride Carbon Dioxide Anion Gap BUN Creatinine Est GFR (CKD-EPI)AfAm Est GFR (CKD-EPI)NonAf POC Glucometer 152 Random Glucose Calcium Phosphorus Magnesium Total Bilirubin AST ALT Alkaline Phosphatase C-Reactive Protein 1.2 H Total Protein Albumin Urine Color Urine Appearance Urine pH Ur Specific Morris Urine Protein Urine Glucose (UA) Urine Ketones Urine Blood Urine Nitrite Urine Bilirubin Urine Urobilinogen Ur Leukocyte Esterase Active Medications Generic Name Dose Route Start Last Admin Trade Name Freq PRN Reason Stop Dose Admin Docusate Sodium 100 mg 07/23/19 11:39 Colace - PO BID PRN CONSTIPATION Iron Sucrose 200 mg/ Sodium 100 mls @ 100 mls/hr 07/23/19 12:00 Chloride IVPB 07/23/19 12:59 ONCE ONE Insulin Aspart 1 vial 07/21/19 07:00 07/23/19 11:47 Novolog Vial Sliding Scale - SQ 2 units ACHS SILVINO Administration Protocol Metoprolol Succinate 25 mg 07/23/19 10:00 07/23/19 09:35 Toprol Xl - PO 25 mg DAILY SILVINO Administration Pantoprazole Sodium 40 mg 07/21/19 22:00 07/23/19 09:35 Protonix Iv IVPUSH 40 mg BID SILVINO Administration Polyethylene Glycol 17 gm 07/22/19 10:00 07/23/19 09:35 Miralax (For Daily Use) - PO 17 grams DAILY SILVINO Administration Quinapril HCl 40 mg 07/23/19 10:00 07/23/19 09:35 Accupril - PO 40 mg DAILY SILVINO Administration Senna 1 tab 07/23/19 22:00 Senna - PO HS SILVINO ASSESSMENT/PLAN: # Rectal bleeding R/O Lower GI Bleed -no episodes of bleeding by nurses -Bleed likely due to multiple etiologies, prolapse, friability, asa use. -Per GI Rectal bleeding due to hemorrhoids. Bleeding from diverticulosis, vascular ectasias and ischemic colitis could be hourly and cause a drop in Hb. -Hgb up 1 point to 8.8 today. -monitor H&H -dc fluids now eating. -cont Pantoprazole 40mg -FOBT+ -resume puree diet -colonoscopy discussed with family by GI, currently declining. -called son today, updated him and answered all his questions. He says he discussed possible CT scan with Dr Greenwood. will discuss with dr greenwood whether a CT scan is warranted at this time. 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 (07/04 and 07/08). - s/p 2x venofer this admission. 1x last admission -Pantoprazole BID -discharge on Iron -monitor h/h #Right arm DVT -no heparin at this time due to bleed. was found last admission -+FOBT -repeat Duplex #Type 2 DM #HTN #HLD #History of TIA-aspirin held #Dvt ppx -no hep at this time Visit type - Emergency Visit Emergency Visit: Yes ED Registration Date: 07/21/19 Care time: The patient presented to the Emergency Department on the above date and was hospitalized for further evaluation of their emergent condition. - New Patient This patient is new to me today: Yes Date on this admission: 07/23/19 - Critical Care Critical Care patient: No ATTENDING PHYSICIAN STATEMENT I saw and evaluated the patient. I reviewed the resident's note and discussed the case with the resident. I agree with the resident's findings and plan as documented. SUBJECTIVE: OBJECTIVE: ASSESSMENT AND PLAN:
[2019-07-23 14:22] LABS: ANISOCYTOSIS 1+; MACROCYTOSIS 0; OVALOCYTE 1+; PLATELET ESTIMATE NORMAL
--- NOTE | 2019-07-23 15:07 | PN.GI ---
GI Progress Note Subjective: GI NOte: The Hb has unexplicably climbed. More likely yesterday's CBC was not accurate. No bleeding but no BM. Unable to get Miralax as she needs her liquids thickened. Will give Lacvtulose instead - Objective Vital Signs: Vital Signs Temperature 98.2 F 07/23/19 09:09 Pulse Rate 102 H 07/23/19 09:09 Respiratory Rate 20 07/23/19 09:09 Blood Pressure 161/93 07/23/19 09:09 O2 Sat by Pulse Oximetry (%) 96 07/22/19 21:00 Laboratory Tests 07/22/19 07/23/19 08:05 07:48 Hgb 7.8 L 8.8 L Constitutional: Calm ...Auscultate: Yes: Normoactive Bowel Sounds ...Palpate: Yes: Soft, Other (nontender) Labs: CBC, BMP 07/23/19 07:48 07/23/19 07:48 INR, PTT INR 1.17 (0.83-1.09) H 07/21/19 09:00 Assessment/Plan Assessment - Rectal bleeding due to hemorrhoids has resolved - Constipation Plan: -- Stop Miralax; start Lactulose -- Follow CBCs -- If bleeding increases will again discuss colonoscopy Discussed the case with Dr Em Problem List - Problems (1) Hematochezia Code(s): K92.1 - MELENA (2) DVT of upper extremity (deep vein thrombosis) Code(s): I82.629 - ACUTE EMBOLISM AND THROMBOSIS OF DEEP VN UNSP UP EXTREM (3) Hypothyroid Code(s): E03.9 - HYPOTHYROIDISM, UNSPECIFIED (4) Type 2 diabetes mellitus Code(s): E11.9 - TYPE 2 DIABETES MELLITUS WITHOUT COMPLICATIONS (5) Anemia due to gastrointestinal blood loss Code(s): D50.0 - IRON DEFICIENCY ANEMIA SECONDARY TO BLOOD LOSS (CHRONIC) (6) Constipation Code(s): K59.00 - CONSTIPATION, UNSPECIFIED (7) Dementia Code(s): F03.90 - UNSPECIFIED DEMENTIA WITHOUT BEHAVIORAL DISTURBANCE (8) Diverticulosis Code(s): K57.90 - DVRTCLOS OF INTEST, PART UNSP, W/O PERF OR ABSCESS W/O BLEED (9) Hypernatremia Code(s): E87.0 - HYPEROSMOLALITY AND HYPERNATREMIA (10) Hypertension Code(s): I10 - ESSENTIAL (PRIMARY) HYPERTENSION (11) Hypothyroidism Code(s): E03.9 - HYPOTHYROIDISM, UNSPECIFIED (12) NSTEMI (non-ST elevated myocardial infarction) Code(s): I21.4 - NON-ST ELEVATION (NSTEMI) MYOCARDIAL INFARCTION (13) Rectal mucosa prolapse Code(s): K62.3 - RECTAL PROLAPSE
[2019-07-23] MEDS ORDERED: LACTULOSE 20 GM/30 ML UDC (FOR ORAL USE ONLY) PO PRN (15:08)
[2019-07-23] MEDS: SENNOSIDES 8.6MG TABLET (FP) PO SCH (23:04)
[2019-07-24] MEDS: INSULIN SLIDING SCALE (NOVOLOG) 1 VIAL SQ SCH ×4 (06:32→23:02)
[2019-07-24] MEDS ORDERED: MAGNESIUM SULF 50% (8.12 MEQ/2 ML-1 GM VIAL) IVPB ONE (09:07)
[2019-07-24 09:51] LABS: BASO % 0.4 % (0-2.0); HEMATOCRIT 25.5 % (32.4-45.2); HEMOGLOBIN 8.6 GM/dL (10.7-15.3); LYMPH % 21.5 % (8-40); MCH 29.9 pg (25.7-33.7); MCHC 33.6 g/dl (32.0-36.0); MEAN CELL VOLUME 89.2 fl (80-96); MONO % 10.2 % (3.8-10.2); NEUT % 66.9 % (42.8-82.8); PLATELET COUNT 361 K/MM3 (134-434); RBC 2.86 M/mm3 (3.60-5.2); RDW 14.9 % (11.6-15.6); WHITE BLOOD COUNT 6.5 K/mm3 (4.0-10.0)
[2019-07-24 10:13] LABS: ALBUMIN 2.3 g/dl (3.4-5.0); BILIRUBIN,TOTAL 0.7 mg/dL (0.2-1); CREATININE 0.8 mg/dL (0.55-1.3)
[2019-07-24] MEDS ORDERED: PT OWN MED DRAWER 7, Y5N ONE (10:45)
[2019-07-24] MEDS: metoPROLOL SUCCINATE 25 MG TAB.SR.24H (FP) PO SCH ×2 (11:30→11:39)
[2019-07-24] MEDS: PANTOPRAZOLE SODIUM 40 MG VIAL IVPUSH SCH ×2 (11:38→23:01)
[2019-07-24] MEDS: QUINAPRIL HCL 40 MG TABLET (FP) PO SCH (11:39)
[2019-07-24 14:20] LABS: ANISOCYTOSIS 1+; MACROCYTOSIS 0; OVALOCYTE 1+; PLATELET ESTIMATE NORMAL
[2019-07-24] MEDS ORDERED: FLU VACCINE QUAD 60 MCG/0.5 ML (MDV 19-20) IM ONE (15:00)
[2019-07-24] MEDS ORDERED: INSULIN (NOVOLOG) ASPART 100 UNITS/ML 10ML VIAL ONE (17:02)
--- NOTE | 2019-07-24 18:27 | PN ---
Progress Note, Physician Chief Complaint: bloody BM History of Present Illness: no further episodes of bleeding, patient sleeping comfortably - Current Medication List Current Medications: Active Medications Docusate Sodium (Colace -) 100 mg PO BID PRN PRN Reason: CONSTIPATION Influenza Virus Vaccine Quadrival (Flulaval Quad [id number]) 60 mcg IM .ONCE ONE Stop: 07/25/19 10:01 Insulin Aspart (Novolog Vial Sliding Scale -) 1 vial SQ [facility]; Protocol Last Admin: 07/24/19 16:42 Dose: Not Given Lactulose (Cephulac (Oral Use)) 20 gm PO Q8H PRN PRN Reason: CONSTIPATION Last Admin: 07/23/19 23:04 Dose: 20 gm Metoprolol Succinate (Toprol Xl -) 25 mg PO DAILY [facility] Last Admin: 07/24/19 11:30 Dose: Not Given Pantoprazole Sodium (Protonix Iv) 40 mg IVPUSH BID [facility] Last Admin: 07/24/19 11:38 Dose: 40 mg Quinapril HCl (Accupril -) 40 mg PO DAILY [facility] Last Admin: 07/24/19 11:39 Dose: 40 mg Senna (Senna -) 1 tab PO HS [facility] Last Admin: 07/23/19 23:04 Dose: 1 tab - Objective Vital Signs: Vital Signs Temperature 98.9 F 07/24/19 15:00 Pulse Rate 93 H 07/24/19 15:00 Respiratory Rate 20 07/24/19 15:00 Blood Pressure 159/72 07/24/19 15:00 O2 Sat by Pulse Oximetry (%) 97 07/24/19 09:00 Constitutional: Yes: No Distress, Calm Cardiovascular: Yes: WNL, Regular Rate and Rhythm Respiratory: Yes: Regular, CTA Bilaterally Gastrointestinal: Yes: Normal Bowel Sounds, Soft Edema: No Neurological: Yes: Other (nonverbal) Labs: CBC, BMP 07/24/19 08:45 07/24/19 08:45 INR, PTT INR 1.17 (0.83-1.09) H 07/21/19 09:00 Problem List - Problems (1) Anemia Code(s): D64.9 - ANEMIA, UNSPECIFIED (2) Hematochezia Code(s): K92.1 - MELENA (3) Hypothyroid Code(s): E03.9 - HYPOTHYROIDISM, UNSPECIFIED (4) UT (blood per rectum) Code(s): K62.5 - HEMORRHAGE OF ANUS AND RECTUM (5) Sacral decubitus ulcer, stage III Code(s): L89.153 - PRESSURE ULCER OF SACRAL REGION, STAGE 3 (6) Type 2 diabetes mellitus Code(s): E11.9 - TYPE 2 DIABETES MELLITUS WITHOUT COMPLICATIONS (7) Constipation Code(s): K59.00 - CONSTIPATION, UNSPECIFIED Assessment/Plan ASSESSMENT: Lower GIB Constipation SLOAN DVT right arm DM2 HTN HLD TIA hx PLAN: -no further episodes of bleeding -started on lactulose, miralax DC -h/h stable, monitor -PPI -holding asa and AC -venofer infusions -right arm dvt-holding AC, high risk of rebleeding -cw current mngmt
[2019-07-24] MEDS ORDERED: ACETAMINOPHEN 1000 MG/100 ML VIAL (NON FORMULARY) IVPB PRN (19:36)
[2019-07-24] MEDS: METOPROLOL TARTRATE 25 MG TABLET (FP) PO SCH ×2 (20:36→23:03)
[2019-07-24] MEDS: SENNOSIDES 8.6MG TABLET (FP) PO SCH (23:01)
[2019-07-25 03:53] LABS: PH,URINE 5.5 (5.0-8.0); URINE APPEARANCE Clear; URINE BILIRUBIN Negative (NEGATIVE); URINE COLOR Yellow; URINE GLUCOSE (UA) Negative (NEGATIVE); URINE KETONE Negative (NEGATIVE); URINE LEUK ESTERASE Trace (NEGATIVE); URINE NITRITE Positive (NEGATIVE); URINE PROTEIN Trace (NEGATIVE); URINE UROBILINOGEN 0.2 mg/dL (0.2-1.0)
[2019-07-25] MEDS: INSULIN SLIDING SCALE (NOVOLOG) 1 VIAL SQ SCH ×4 (07:55→21:17)
[2019-07-25 08:31] LABS: BASO % 0.5 % (0-2.0); EOS % 1.4 % (0-4.5); HEMATOCRIT 25.6 % (32.4-45.2); HEMOGLOBIN 8.5 GM/dL (10.7-15.3); LYMPH % 22.8 % (8-40); MCHC 33.2 g/dl (32.0-36.0); MEAN CELL VOLUME 90.2 fl (80-96); MONO % 13.4 % (3.8-10.2); NEUT % 61.9 % (42.8-82.8); PLATELET COUNT 333 K/MM3 (134-434); RBC 2.84 M/mm3 (3.60-5.2); RDW 15.5 % (11.6-15.6); WHITE BLOOD COUNT 7.3 K/mm3 (4.0-10.0)
[2019-07-25 08:42] LABS: BLOOD UREA NITROGEN 14.1 mg/dL (7-18); CALCIUM 8.4 mg/dL (8.5-10.1); CREATININE 0.8 mg/dL (0.55-1.3); MAGNESIUM 1.7 mg/dL (1.8-2.4); POTASSIUM 4.1 mmol/L (3.5-5.1)
[2019-07-25] MEDS: QUINAPRIL HCL 40 MG TABLET (FP) PO SCH (09:33)
[2019-07-25] MEDS: METOPROLOL TARTRATE 25 MG TABLET (FP) PO SCH ×2 (09:33→21:16)
[2019-07-25] MEDS: PANTOPRAZOLE SODIUM 40 MG VIAL IVPUSH SCH ×2 (09:33→21:17)
[2019-07-25 10:12] LABS: ANISOCYTOSIS 1+; MACROCYTOSIS 0; OVALOCYTE 1+; PLATELET ESTIMATE NORMAL; TARGET CELLS 1+; TEAR DROP CELLS 1+
--- NOTE | 2019-07-25 11:43 | PN ---
Progress Note (short form) - Note Progress Note: fevers resolving resting comfortably Vital Signs Period Temp Pulse Resp BP Sys/Tolentino Pulse Ox Last 24 Hr 98.1 F-100.7 F 85-110 18-20 103-162/47-97 95-95 cor-rrr lungs clear ab soft,nt ext no edema CBC, BMP 07/26/19 07:50 07/26/19 07:50 Microbiology 07/25/19 14:00 Urine - Urine Clean Catch Urine Culture - Final NO GROWTH OBTAINED 07/24/19 19:16 Blood - Peripheral Venous Blood Culture - Preliminary NO GROWTH OBTAINED AFTER 24 HOURS, INCUBATION TO CONTINUE FOR 4 DAYS. 07/24/19 19:10 Blood - Peripheral Venous Blood Culture - Preliminary NO GROWTH OBTAINED AFTER 24 HOURS, INCUBATION TO CONTINUE FOR 4 DAYS. influenza negative cxray retrocardiac area unchanged from 07/09! a/p fevers resolving ?intermittent aspiration f/u speech pathology observe off antibiotics at this time
[2019-07-25] MEDS ORDERED: MAGNESIUM SULF 50% (8.12 MEQ/2 ML-1 GM VIAL) IVPB ONE (12:00)
[2019-07-25] MEDS ORDERED: PT OWN MED DRAWER 7, Y5N ONE (12:59)
[2019-07-25] MEDS: COLLAGENASE CLOSTRIDIUM HIST. 30 GRAMS TUBE TP SCH (13:58)
--- NOTE | 2019-07-25 14:02 | CONS ---
DATE OF CONSULTATION: DATE OF DICTATION: 07/25/2019 REQUESTED BY: Hospitalist service. This is an 89-year-old female, status post recent admission from July 03 to July 16 for septic shock and acute respiratory failure. She required intubation. She was treated for left lower lobe pneumonia with Zosyn and Zithromax. She was extubated on the . She had an episode of rectal bleeding. Colonoscopy was refused. She received blood transfusion. She was found to have a right upper extremity DVT, [facility] , off anticoagulation due to the rectal bleeding. She was sent back from the prison on the with hematochezia. She was seen on the by Dr. Greenwood, who again offered colonoscopy to the family and it was declined. I am asked to see her now because last night she had fever, which has resolved this morning. She has also been seen by our speech pathologist on the , who raised concerns for possible intermittent aspiration. She is currently resting comfortably. She is alert. She has no fever this morning and, per the nursing staff, is not coughing. They report the family feeds her sometimes. This morning, the nursing unit coordinator helped her with breakfast, which she tolerated. She is on a modified diet. Her past medical history is notable for hyperlipidemia, diabetes, hypothyroidism, GERD, and dementia. She has a history of chondrocalcinosis, hypertension, diabetes. There is no documented surgical history. She has no known drug allergies. SOCIAL HISTORY: Nonsmoker. No history of alcohol use. She was living at home prior to the last admission and was discharged to SNF. Her medications at the prison include B complex, Accupril, vitamins, Toprol XL, metformin, Namenda, Synthroid, Lipitor, vitamin C, and Xanax. REVIEW OF SYSTEMS: Notable for hematochezia. PHYSICAL EXAMINATION: General: She is awake and alert. Vital Signs: Temperature T-max was 101.6, current temperature 97.8. Pulse 88. Blood pressure 148/74. Respiratory rate 20. HEENT: Normocephalic. Her eyes are anicteric. Neck: Supple. Lungs: Clear to auscultation. She has diminished breath sounds on the lung exam. Heart: Regular rate and rhythm. Abdomen: Soft. Extremities: Without edema. She has evidence of a left heel deep tissue injury. She has a blister on the left heel, and she has a stage 2 sacral ulcer. White count is 7.3, hemoglobin 8.5, platelets 133, BUN 14, creatinine 0.8. Urinalysis is notable for trace leukocytes. Urine culture and blood cultures have been ordered and chest x-ray is pending. In summary, this is an 89-year-old woman with an isolated fever, normal white count, hemodynamically stable. Suspect intermittent aspiration. Urinary tract infection is also a possibility. Await cultures. Awaiting her chest x-ray. Would follow up with speech pathology. Would screen with influenza antigen as well. Observe off antibiotics at this time. Further recommendations to follow. LICHA ARAIZA M.D. [id number]
--- NOTE | 2019-07-25 15:28 | PN ---
Progress Note, Physician Chief Complaint: bloody BM History of Present Illness: no further episodes of bleeding, patient spiked temp last night - Current Medication List Current Medications: Active Medications Acetaminophen (Ofirmev Injection -) 1,000 mg IVPB ONCE PRN PRN Reason: FEVER Stop: 07/25/19 19:35 Last Admin: 07/24/19 23:03 Dose: 1,000 mg Collagenase (Santyl -) 1 applic TP DAILY [facility]; Protocol Last Admin: 07/25/19 13:58 Dose: 1 applic Docusate Sodium (Colace -) 100 mg PO BID PRN PRN Reason: CONSTIPATION Influenza Virus Vaccine Quadrival (Flulaval Quad 9546-3667) 60 mcg IM .ONCE ONE Stop: 07/25/19 10:01 Insulin Aspart (Novolog Vial Sliding Scale -) 1 vial SQ [facility]; Protocol Last Admin: 07/25/19 11:52 Dose: Not Given Lactulose (Cephulac (Oral Use)) 20 gm PO Q8H PRN PRN Reason: CONSTIPATION Last Admin: 07/23/19 23:04 Dose: 20 gm Metoprolol Tartrate (Lopressor -) 12.5 mg PO BID [facility] Last Admin: 07/25/19 09:33 Dose: 12.5 mg Pantoprazole Sodium (Protonix Iv) 40 mg IVPUSH BID [facility] Last Admin: 07/25/19 09:33 Dose: 40 mg Quinapril HCl (Accupril -) 40 mg PO DAILY [facility] Last Admin: 07/25/19 09:33 Dose: 40 mg Senna (Senna -) 1 tab PO HS [facility] Last Admin: 07/24/19 23:01 Dose: 1 tab - Objective Vital Signs: Vital Signs Temperature 97.8 F 07/25/19 10:00 Pulse Rate 88 07/25/19 10:00 Respiratory Rate 20 07/25/19 10:00 Blood Pressure 148/74 07/25/19 10:00 O2 Sat by Pulse Oximetry (%) 97 07/24/19 21:00 Constitutional: Yes: No Distress, Calm Cardiovascular: Yes: Regular Rate and Rhythm Respiratory: Yes: Regular, CTA Bilaterally Gastrointestinal: Yes: WNL, Normal Bowel Sounds, Soft Edema: No Neurological: Yes: Other (nonverbal) Labs: CBC, BMP 07/25/19 07:25 07/25/19 07:25 INR, PTT INR 1.17 (0.83-1.09) H 07/21/19 09:00 Problem List - Problems (1) Anemia Code(s): D64.9 - ANEMIA, UNSPECIFIED (2) Hematochezia Code(s): K92.1 - MELENA (3) Hypothyroid Code(s): E03.9 - HYPOTHYROIDISM, UNSPECIFIED (4) RI (blood per rectum) Code(s): K62.5 - HEMORRHAGE OF ANUS AND RECTUM (5) Sacral decubitus ulcer, stage III Code(s): L89.153 - PRESSURE ULCER OF SACRAL REGION, STAGE 3 (6) Type 2 diabetes mellitus Code(s): E11.9 - TYPE 2 DIABETES MELLITUS WITHOUT COMPLICATIONS (7) Constipation Code(s): K59.00 - CONSTIPATION, UNSPECIFIED Assessment/Plan ASSESSMENT: Fevers Lower GIB Constipation SLOAN DVT right arm DM2 HTN HLD TIA hx PLAN: -no further episodes of bleeding -cw lactulose -spiked temp last night, urine cx pending, blood cx sent -cxr ordered, possible recurrent aspiration -holding abx for now, monitor fever curve -h/h stable, monitor -PPI -holding asa and AC -venofer infusions -right arm dvt-holding AC, high risk of rebleeding -cw current mngmt -ID kyler
[2019-07-25] MEDS ORDERED: INSULIN (NOVOLOG) ASPART 100 UNITS/ML 10ML VIAL ONE (16:31)
[2019-07-25] MEDS: SENNOSIDES 8.6MG TABLET (FP) PO SCH (21:17)
[2019-07-26] MEDS: INSULIN SLIDING SCALE (NOVOLOG) 1 VIAL SQ SCH ×4 (06:24→22:18)
--- NOTE | 2019-07-26 07:48 | PN ---
Teaching Attending Note Name of Resident: Joanne Fiedls ATTENDING PHYSICIAN STATEMENT I saw and evaluated the patient. I reviewed the resident's note and discussed the case with the resident. I agree with the resident's findings and plan as documented. SUBJECTIVE: Patient remained afebrile, no change in mental status OBJECTIVE: Vital Signs Temperature 98.1 F 07/26/19 05:53 Pulse Rate 89 07/26/19 05:53 Respiratory Rate 18 07/26/19 05:53 Blood Pressure 162/85 07/26/19 05:53 O2 Sat by Pulse Oximetry (%) 95 07/25/19 21:00 General: Elderly woman, comfortable, not in distress HEENT; mucous membranes moist, no anemia, no jaundice, PERRLA, no nystagmus Neck: No JVD, supple, no bruit, thyroid palpably normal, normal carotid pulsations. Chest: Nontender, clear to auscultation bilaterally/bilateral wheezing/ bilateral basal rales. CVS: S1-S2 regular/irregular no murmur/gallop/rub Abdomen: bright red blood in the rectum, no active bleeding, nondistended, soft , bowel sounds present. 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, oriented to self 07/26/19 07:50 07/26/19 07:50 Urine Test Results Urine Color Yellow 07/25/19 03:30 Urine Appearance Clear 07/25/19 03:30 Urine pH 5.5 (5.0-8.0) 07/25/19 03:30 Ur Specific Hibbs 1.020 (1.010-1.035) 07/25/19 03:30 Urine Protein Trace (NEGATIVE) 07/25/19 03:30 Urine Glucose (UA) Negative (NEGATIVE) 07/25/19 03:30 Urine Ketones Negative (NEGATIVE) 07/25/19 03:30 Urine Blood Trace-intact (NEGATIVE) 07/25/19 03:30 Urine Nitrite Positive (NEGATIVE) 07/25/19 03:30 Urine Bilirubin Negative (NEGATIVE) 07/25/19 03:30 Ur Leukocyte Esterase Trace (NEGATIVE) 07/25/19 03:30 Active Medications Collagenase (Santyl -) 1 applic TP DAILY [facility]; Protocol Last Admin: 07/25/19 13:58 Dose: 1 applic Docusate Sodium (Colace -) 100 mg PO BID PRN PRN Reason: CONSTIPATION Influenza Virus Vaccine Quadrival (Flulaval Quad [id number]) 60 mcg IM .ONCE ONE Stop: 07/25/19 10:01 Insulin Aspart (Novolog Vial Sliding Scale -) 1 vial SQ [facility]; Protocol Last Admin: 07/26/19 06:24 Dose: Not Given Lactulose (Cephulac (Oral Use)) 20 gm PO Q8H PRN PRN Reason: CONSTIPATION Last Admin: 07/23/19 23:04 Dose: 20 gm Metoprolol Tartrate (Lopressor -) 12.5 mg PO BID [facility] Last Admin: 07/25/19 21:16 Dose: 12.5 mg Pantoprazole Sodium (Protonix Iv) 40 mg IVPUSH BID [facility] Last Admin: 07/25/19 21:17 Dose: 40 mg Quinapril HCl (Accupril -) 40 mg PO DAILY [facility] Last Admin: 07/25/19 09:33 Dose: 40 mg Senna (Senna -) 1 tab PO HS [facility] Last Admin: 07/25/19 21:17 Dose: 1 tab Assessment and plan: 89 year old female with PMH of HLD, DM, hypothyroidism, GERD, and dementia. She is non verbal and AOx0, her daughter was available at bedside to provide a history. Patient was transferred from [facility] for evaluation of bright red blood per rectum, during the course of hospitalization there is no active bleeding, H&H are stable, evaluated by GI at present no plan for colonoscopy. Plan: Yesterday patient developed low-grade fever, CXR no acute infiltrate except persistent retrocardiac questionable infiltrate, remained afebrile UA is unremarkable evaluated by ID will observe off antibiotics. Problem List - Problems (1) NM (blood per rectum) Assessment/Plan: No active bleeding since hospitalization H&H is stable we will continue bowel regimen. Evaluation by GI no plan for colonoscopy.. Code(s): K62.5 - HEMORRHAGE OF ANUS AND RECTUM (2) Hypertension Assessment/Plan: Well-controlled will continue oral blood pressure medication if indicated. Code(s): I10 - ESSENTIAL (PRIMARY) HYPERTENSION (3) Dementia Assessment/Plan: Chronic at baseline nonverbal Code(s): F03.90 - UNSPECIFIED DEMENTIA WITHOUT BEHAVIORAL DISTURBANCE (4) Hypercholesterolemia Assessment/Plan: Continue statin once able to tolerate p.o. Code(s): E78.00 - PURE HYPERCHOLESTEROLEMIA, UNSPECIFIED (5) DVT of upper extremity (deep vein thrombosis) Assessment/Plan: History of DVT right upper extremity not on any anticoagulation due to GI bleed. Code(s): I82.629 - ACUTE EMBOLISM AND THROMBOSIS OF DEEP VN UNSP UP EXTREM (6) Hypothyroid Assessment/Plan: Continue levothyroxine will start tolerating p.o. Code(s): E03.9 - HYPOTHYROIDISM, UNSPECIFIED (7) Type 2 diabetes mellitus Assessment/Plan: Patient is n.p.o. continue Accu-Chek every 6 hourly and fingersticks start on D5 half-normal saline once fingersticks drop less than 150 Code(s): E11.9 - TYPE 2 DIABETES MELLITUS WITHOUT COMPLICATIONS (8) Sacral decubitus ulcer, stage III Assessment/Plan: Patient is a stage III sacral decubitus needs wound care ulcer base looks healthy. Code(s): L89.153 - PRESSURE ULCER OF SACRAL REGION, STAGE 3 (9) Anemia Assessment/Plan: Chronic anemia presents with lower GI bleed, H&H remained stable on IV and multivitamins Code(s): D64.9 - ANEMIA, UNSPECIFIED (10) Fever Assessment/Plan: Yesterday had low-grade fever remained afebrile overnight, WBC normal, chest x- ray no new infiltrate except persistent retrocardiac infiltrate/atelectasis, ID evaluated recommended observe off antibiotics follow-up pending work-up. Wound care consult. Problems reviewed: Yes Code(s): R50.9 - FEVER, UNSPECIFIED
[2019-07-26 08:43] LABS: BASO % 0.4 % (0-2.0); EOS % 1.4 % (0-4.5); HEMATOCRIT 24.4 % (32.4-45.2); HEMOGLOBIN 8.1 GM/dL (10.7-15.3); LYMPH % 21.9 % (8-40); MCH 29.7 pg (25.7-33.7); MCHC 33.2 g/dl (32.0-36.0); MEAN CELL VOLUME 89.7 fl (80-96); MONO % 9.5 % (3.8-10.2); NEUT % 66.8 % (42.8-82.8); PLATELET COUNT 348 K/MM3 (134-434); RBC 2.72 M/mm3 (3.60-5.2); RDW 15.2 % (11.6-15.6); WHITE BLOOD COUNT 7.2 K/mm3 (4.0-10.0)
[2019-07-26 09:19] LABS: CALCIUM 8.3 mg/dL (8.5-10.1); CREATININE 0.7 mg/dL (0.55-1.3); MAGNESIUM 1.7 mg/dL (1.8-2.4); POTASSIUM 4.1 mmol/L (3.5-5.1)
[2019-07-26] MEDS ORDERED: FLU VACCINE QUAD 60 MCG/0.5 ML (MDV 19-20) IM ONE (10:00)
[2019-07-26] MEDS ORDERED: PT OWN MED DRAWER 7, Y5N ONE (10:13)
[2019-07-26] MEDS: METOPROLOL TARTRATE 25 MG TABLET (FP) PO SCH (10:27)
[2019-07-26] MEDS: PANTOPRAZOLE SODIUM 40 MG VIAL IVPUSH SCH ×2 (10:27→22:18)
[2019-07-26] MEDS: QUINAPRIL HCL 40 MG TABLET (FP) PO SCH (10:28)
[2019-07-26] MEDS ORDERED: IRON SUCROSE INJECTION 200 MG in SODIUM CHLORIDE 90 ML IVPB ONE (10:30)
[2019-07-26] MEDS: COLLAGENASE CLOSTRIDIUM HIST. 30 GRAMS TUBE TP SCH (10:35)
[2019-07-26 12:02] LABS: ANISOCYTOSIS 1+; MACROCYTOSIS 0; OVALOCYTE 1+; PLATELET ESTIMATE NORMAL
--- NOTE | 2019-07-26 15:22 | PN ---
Physical Exam: SUBJECTIVE: Patient seen and examined. Febrile 100.7 at 10pm last night. no fevers since. OBJECTIVE: Vital Signs Period Temp Pulse Resp BP Sys/Tolentino Pulse Ox Last 24 Hr 98.1 F-100.7 F 85-110 18-20 110-162/47-97 95-95 GENERAL: in NAD, nonverbal EYES: PERRL, sclera anicteric ENT: moist mucous membranes. NECK: supple. LUNGS: decreased breath sounds, no accessory muscle use. HEART: RRR ABDOMEN: Soft, nontender, nondistended, normoactive bowel sounds EXTREMITIES: 2+ pulses, no edema. Laboratory Results - last 24 hr 07/25/19 07/25/19 07/26/19 16:20 21:11 06:22 WBC RBC Hgb Hct MCV MCH MCHC RDW Plt Count MPV Absolute Neuts (auto) Neutrophils % Neutrophils % (Manual) Band Neutrophils % Lymphocytes % Lymphocytes % (Manual) Monocytes % Monocytes % (Manual) Eosinophils % Eosinophils % (Manual) Basophils % Basophils % (Manual) Myelocytes % (Man) Promyelocytes % (Man) Blast Cells % (Manual) Nucleated RBC % Metamyelocytes Hypochromia Platelet Estimate Polychromasia Poikilocytosis Anisocytosis Microcytosis Macrocytosis Spherocytes Ovalocytes Sodium Potassium Chloride Carbon Dioxide Anion Gap BUN Creatinine Est GFR (CKD-EPI)AfAm Est GFR (CKD-EPI)NonAf POC Glucometer 172 172 130 Random Glucose Calcium Magnesium 07/26/19 07/26/19 07/26/19 07:50 07:50 11:42 WBC 7.2 RBC 2.72 L Hgb 8.1 L Hct 24.4 L MCV 89.7 MCH 29.7 MCHC 33.2 RDW 15.2 Plt Count 348 MPV 7.0 L Absolute Neuts (auto) 4.8 Neutrophils % 66.8 Neutrophils % (Manual) 60.9 Band Neutrophils % 2.8 Lymphocytes % 21.9 Lymphocytes % (Manual) 24.8 Monocytes % 9.5 Monocytes % (Manual) 5 Eosinophils % 1.4 Eosinophils % (Manual) 1.9 D Basophils % 0.4 Basophils % (Manual) 0.0 Myelocytes % (Man) 0 Promyelocytes % (Man) 0 Blast Cells % (Manual) 0 Nucleated RBC % 0 Metamyelocytes 0 Hypochromia 0 Platelet Estimate Normal Polychromasia 0 Poikilocytosis 1+ Anisocytosis 1+ Microcytosis 1+ Macrocytosis 0 Spherocytes 1+ Ovalocytes 1+ Sodium 137 Potassium 4.1 Chloride 103 Carbon Dioxide 28 Anion Gap 5 L BUN 15.0 Creatinine 0.7 Est GFR (CKD-EPI)AfAm 89.03 Est GFR (CKD-EPI)NonAf 76.82 POC Glucometer 205 Random Glucose 125 H Calcium 8.3 L Magnesium 1.7 L Active Medications Generic Name Dose Route Start Last Admin Trade Name Freq PRN Reason Stop Dose Admin Collagenase 1 applic 07/25/19 12:00 07/26/19 10:35 Santyl - TP 1 applic DAILY [facility] Administration Protocol Docusate Sodium 100 mg 07/23/19 11:39 Colace - PO BID PRN CONSTIPATION Insulin Aspart 1 vial 07/21/19 07:00 07/26/19 11:46 Novolog Vial Sliding Scale - SQ 4 units ACHS [facility] Administration Protocol Lactulose 20 gm 07/23/19 15:08 07/23/19 23:04 Cephulac (Oral Use) PO 20 gm Q8H PRN Administration CONSTIPATION Metoprolol Tartrate 12.5 mg 07/24/19 18:41 07/26/19 10:27 Lopressor - PO 12.5 mg BID [facility] Administration Pantoprazole Sodium 40 mg 07/21/19 22:00 07/26/19 10:27 Protonix Iv IVPUSH 40 mg BID [facility] Administration Quinapril HCl 40 mg 07/23/19 10:00 07/26/19 10:28 Accupril - PO 40 mg DAILY [facility] Administration Senna 1 tab 07/23/19 22:00 07/25/19 21:17 Senna - PO 1 tab HS [facility] Administration ASSESSMENT/PLAN: # Rectal bleeding R/O Lower GI Bleed -no episodes of bleeding by nurses -Bleed likely due to multiple etiologies, prolapse, friability, asa use. -Per GI Rectal bleeding due to hemorrhoids. Bleeding from diverticulosis, vascular ectasias and ischemic colitis could be hourly and cause a drop in Hb. -Hgb stable -monitor H&H -cont Pantoprazole 40mg -colonoscopy discussed with family by GI, currently declining. 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 (07/04 and 07/08). - s/p 3x venofer this admission. 1x last admission. will give her 1 more after tomorrow and discharge on PO iron -Pantoprazole BID -monitor h/h #Right arm DVT -no heparin at this time due to bleed. was found last admission -+FOBT #Type 2 DM #HTN #HLD #History of TIA-aspirin held #Dvt ppx -no hep at this time dispo: if no further fevers, likely dc in AM Visit type - Emergency Visit Emergency Visit: Yes ED Registration Date: 07/21/19 Care time: The patient presented to the Emergency Department on the above date and was hospitalized for further evaluation of their emergent condition. - New Patient This patient is new to me today: Yes Date on this admission: 07/26/19 - Critical Care Critical Care patient: No ATTENDING PHYSICIAN STATEMENT I saw and evaluated the patient. I reviewed the resident's note and discussed the case with the resident. I agree with the resident's findings and plan as documented. SUBJECTIVE: OBJECTIVE: ASSESSMENT AND PLAN:
[2019-07-26] MEDS ORDERED: METOPROLOL TARTRATE 25 MG TABLET (FP) PO ONE (18:11)
[2019-07-26] MEDS ORDERED: PIPERACILLIN/TAZOB 3.375 GM 3.375 GM in DEXTROSE 5%-WATER - 50 ML IVPB ONE (18:28)
[2019-07-26] MEDS ORDERED: SODIUM CHLORIDE 0.9% 500 ML INFUS.BAG IV ONE (18:32)
[2019-07-26] MEDS: ACETAMINOPHEN 325 MG TABLET (FP) PO PRN (18:39)
[2019-07-26] MEDS ORDERED: VANCOMYCIN 1 GM in D5W (PRE-DOCKED) 1,000 MG/250 ML IVPB ONE (19:01)
[2019-07-26 20:14] LABS: HYALINE CASTS 17 /lpf (0-8); URINE APPEARANCE TURBID; URINE BACTERIA >9000 /hpf (NEGATIVE); URINE BILIRUBIN NEGATIVE (NEGATIVE); URINE COLOR YELLOW; URINE GLUCOSE (UA) NEGATIVE (NEGATIVE); URINE KETONE NEGATIVE (NEGATIVE); URINE LEUK ESTERASE 3+ (NEGATIVE); URINE NITRITE NEGATIVE (NEGATIVE); URINE PROTEIN 1+ (NEGATIVE); URINE RBC 5 /hpf (0-4); URINE UROBILINOGEN 0.2 mg/dL (0.2-1.0); URINE WBC 102 /hpf (0-5)
[2019-07-26] MEDS ORDERED: DEXTROSE 5%-WATER - 50 ML IVPB ONE (21:22)
[2019-07-26] MEDS ORDERED: PIPERACILLIN/TAZOBACTAM 3.375 GM VIAL IVPB ONE (21:22)
[2019-07-26] MEDS: SENNOSIDES 8.6MG TABLET (FP) PO SCH (22:18)
[2019-07-27] MEDS: INSULIN SLIDING SCALE (NOVOLOG) 1 VIAL SQ SCH ×4 (06:05→22:05)
[2019-07-27] MEDS ORDERED: PIPERACILLIN/TAZOBACTAM 2.25 GM VIAL IVPB ONE ×3 (08:46→20:32)
[2019-07-27] MEDS ORDERED: DEXTROSE 5%-WATER - 50 ML IVPB ONE ×3 (08:46→20:32)
[2019-07-27] MEDS: PIPERACILLIN/TAZOB 2.25 GM 2.25 GM in DEXTROSE 5%-WATER - 50 ML IVPB SCH ×3 (08:50→20:53)
--- NOTE | 2019-07-27 09:04 | PN ---
Teaching Attending Note Name of Resident: Joanne Fields ATTENDING PHYSICIAN STATEMENT I saw and evaluated the patient. I reviewed the resident's note and discussed the case with the resident. I agree with the resident's findings and plan as documented. SUBJECTIVE: Last night patient spiked fever OBJECTIVE: Vital Signs Temperature 98.4 F 07/27/19 06:00 Pulse Rate 91 H 07/27/19 06:00 Respiratory Rate 07/27/19 06:00 Blood Pressure 128/62 07/27/19 06:00 O2 Sat by Pulse Oximetry (%) 98 07/26/19 21:00 General: Elderly woman, comfortable, not in distress HEENT; mucous membranes moist, no anemia, no jaundice, PERRLA, no nystagmus Neck: No JVD, supple, no bruit, thyroid palpably normal, normal carotid pulsations. Chest: Nontender, bilateral basal rales. CVS: S1-S2 regular/irregular no murmur/gallop/rub Abdomen: bright red blood in the rectum, no active bleeding, nondistended, soft , bowel sounds present. 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 VERTICAL: Nonverbal, oriented to self CBC, BMP 07/27/19 07:45 07/27/19 07:45 Chest x-ray shows retrocardiac/basal infiltrate air bronchogram Active Medications Acetaminophen (Tylenol -) 650 mg PO Q6H PRN PRN Reason: Fever Or Pain Last Admin: 07/26/19 18:39 Dose: 650 mg Collagenase (Santyl -) 1 applic TP DAILY SILVINO; Protocol Last Admin: 07/26/19 10:35 Dose: 1 applic Docusate Sodium (Colace -) 100 mg PO BID PRN PRN Reason: CONSTIPATION Piperacillin Sod/Tazobactam (Sod 2.25 gm/ Dextrose) 50 mls @ 100 mls/hr IVPB Q6H-IV SILVINO; Protocol Piperacillin Sod/Tazobactam (Sod 2.25 gm/ Dextrose) 50 mls @ 100 mls/hr IVPB Q6H-IV SILVINO Stop: 07/28/19 03:29 Last Admin: 07/27/19 08:50 Dose: 100 mls/hr Insulin Aspart (Novolog Vial Sliding Scale -) 1 vial SQ ACHS SILVINO; Protocol Last Admin: 07/27/19 06:05 Dose: Not Given Lactulose (Cephulac (Oral Use)) 20 gm PO Q8H PRN PRN Reason: CONSTIPATION Last Admin: 07/23/19 23:04 Dose: 20 gm Metoprolol Tartrate (Lopressor -) 12.5 mg PO BID [facility] Last Admin: 07/27/19 11:00 Dose: 12.5 mg Pantoprazole Sodium (Protonix Iv) 40 mg IVPUSH BID [facility] Last Admin: 07/26/19 22:18 Dose: 40 mg Quinapril HCl (Accupril -) 40 mg PO DAILY [facility] Last Admin: 07/27/19 11:01 Dose: 40 mg Senna (Senna -) 1 tab PO HS [facility] Last Admin: 07/26/19 22:18 Dose: 1 tab Assessment and plan: 89 year old female with PMH of HLD, type II DM, hypothyroidism, GERD, and dementi Patient was transferred from [facility] for evaluation of bright red blood per rectum, during the course of hospitalization there is no active bleeding, H&H are stable, evaluated by GI at present no plan for colonoscopy. Last night patient developed fever work-up shows left basilar infiltrate with air bronchograms Plan: Yesterday patient spiked fever with some shortness of breath, repeat chest x-ray shows left basilar infiltrate most likely aspiration, follow-up ID recommendations, last night patient was started on Zosyn considering normal white cell count Problem List - Problems (1) MT (blood per rectum) Assessment/Plan: No active bleeding since hospitalization H&H is stable we will continue bowel regimen. Evaluation by GI no plan for colonoscopy.. Code(s): K62.5 - HEMORRHAGE OF ANUS AND RECTUM (2) Hypertension Assessment/Plan: Well-controlled will continue oral blood pressure medication if indicated. Code(s): I10 - ESSENTIAL (PRIMARY) HYPERTENSION (3) Dementia Assessment/Plan: Chronic at baseline nonverbal Code(s): F03.90 - UNSPECIFIED DEMENTIA WITHOUT BEHAVIORAL DISTURBANCE (4) Hypercholesterolemia Assessment/Plan: Continue statin once able to tolerate p.o. Code(s): E78.00 - PURE HYPERCHOLESTEROLEMIA, UNSPECIFIED (5) DVT of upper extremity (deep vein thrombosis) Assessment/Plan: History of DVT right upper extremity not on any anticoagulation due to GI bleed. Code(s): I82.629 - ACUTE EMBOLISM AND THROMBOSIS OF DEEP VN UNSP UP EXTREM (6) Hypothyroid Assessment/Plan: Continue levothyroxine will start tolerating p.o. Code(s): E03.9 - HYPOTHYROIDISM, UNSPECIFIED (7) Type 2 diabetes mellitus Assessment/Plan: Patient is n.p.o. continue Accu-Chek every 6 hourly and fingersticks start on D5 half-normal saline once fingersticks drop less than 150 Code(s): E11.9 - TYPE 2 DIABETES MELLITUS WITHOUT COMPLICATIONS (8) Sacral decubitus ulcer, stage III Assessment/Plan: Patient is a stage III sacral decubitus needs wound care ulcer base looks healthy. Code(s): L89.153 - PRESSURE ULCER OF SACRAL REGION, STAGE 3 (9) Anemia Assessment/Plan: Chronic anemia presents with lower GI bleed, H&H remained stable on IV and multivitamins Code(s): D64.9 - ANEMIA, UNSPECIFIED (10) Fever Assessment/Plan: Yesterday developed fever with shortness of breath and cough and desaturation most likely aspiration, chest x-ray shows left basilar infiltrate T WBC remained normal patient remained afebrile will discuss with ID for antibiotic coverage. Repeat his speech and swallow evaluation. Problems reviewed: Yes Code(s): R50.9 - FEVER, UNSPECIFIED
[2019-07-27 09:12] LABS: BASO % 0.3 % (0-2.0); EOS % 1.8 % (0-4.5); HEMATOCRIT 23.5 % (32.4-45.2); LYMPH % 14.9 % (8-40); MCH 30.3 pg (25.7-33.7); MCHC 33.9 g/dl (32.0-36.0); MEAN CELL VOLUME 89.3 fl (80-96); MONO % 8.8 % (3.8-10.2); NEUT % 74.2 % (42.8-82.8); PLATELET COUNT 372 K/MM3 (134-434); RBC 2.64 M/mm3 (3.60-5.2); RDW 15.6 % (11.6-15.6); WHITE BLOOD COUNT 7.6 K/mm3 (4.0-10.0)
--- NOTE | 2019-07-27 10:22 | PN ---
Progress Note (short form) - Note Progress Note: VASCULAR SURGERY 89yo F was consulted to the vascular service for evaluation of sacral decub. Pt is nonverbal and is unable to give history, unable to assess from chart age of sacral decub. Last Vital Signs Temp Pulse Resp BP Pulse Ox 98.9 F 92 H 20 140/76 98 07/27/19 09:16 07/27/19 09:16 07/27/19 09:16 07/27/19 09:16 07/26/19 21:00 CBC, BMP 07/27/19 07:45 PE: Gen: disoriented Resp: breathing comfortably Back: Stage 2/3 ulcer sacral region 3x 4 cm no erythema or discharge. Problem List - Problems (1) Sacral decubitus ulcer, stage III Assessment/Plan: Sacral Ulcer/DTI Plan -Reposition every two hours while in bed -Air mattress recommended -Use drawsheets and Trendelenburg when repositioning to reduce friction and shear -Manageincontinence via timely cleansing, use of appropriate incontinence disposables and use of barrier ointment to intact skin -Ensure adequate hydration/nutrition, supplementation per primary team -Ensure off-loading to all bony areas (heels, ankles, hips and tailbone) with Allevyn/Optifoam -Clean open wounds with normal saline and apply (santyl) Code(s): L89.153 - PRESSURE ULCER OF SACRAL REGION, STAGE 3
[2019-07-27 10:31] LABS: ALBUMIN 2.2 g/dl (3.4-5.0); BILIRUBIN,TOTAL 0.2 mg/dL (0.2-1); BLOOD UREA NITROGEN 20.6 mg/dL (7-18); CALCIUM 8.5 mg/dL (8.5-10.1); CREATININE 1.1 mg/dL (0.55-1.3); POTASSIUM 4.6 mmol/L (3.5-5.1); TOT PROT 5.9 g/dl (6.4-8.2)
[2019-07-27] MEDS ORDERED: PT OWN MED DRAWER 7, Y5N ONE (10:51)
[2019-07-27] MEDS: METOPROLOL TARTRATE 25 MG TABLET (FP) PO SCH ×2 (11:00→22:02)
[2019-07-27] MEDS: QUINAPRIL HCL 40 MG TABLET (FP) PO SCH (11:01)
--- NOTE | 2019-07-27 11:31 | PN ---
Physical Exam: SUBJECTIVE: Patient seen and examined. Low grade fever last night, tachycardic, mild respiratory distress. Sepsis workup started. Vanc/zosyn given. ID consulted. CXR with left basilar infiltrate, L effusion. OBJECTIVE: Vital Signs Period Temp Pulse Resp BP Sys/Tolentino Pulse Ox Last 24 Hr 97.9 F-100.3 F 83-114 18-22 103-177/56-79 98 GENERAL: in NAD, nonverbal EYES: PERRL, sclera anicteric ENT: moist mucous membranes. NECK: supple. LUNGS: decreased breath sounds, no accessory muscle use. HEART: RRR ABDOMEN: Soft, nontender, nondistended, normoactive bowel sounds EXTREMITIES: 2+ pulses, no edema. Laboratory Results - last 24 hr 07/26/19 07/26/19 07/26/19 07:50 11:42 17:24 WBC RBC Hgb Hct MCV MCH MCHC RDW Plt Count MPV Absolute Neuts (auto) Neutrophils % Neutrophils % (Manual) 60.9 Band Neutrophils % 2.8 Lymphocytes % Lymphocytes % (Manual) 24.8 Monocytes % Monocytes % (Manual) 5 Eosinophils % Eosinophils % (Manual) 1.9 D Basophils % Basophils % (Manual) 0.0 Myelocytes % (Man) 0 Promyelocytes % (Man) 0 Blast Cells % (Manual) 0 Nucleated RBC % 0 Metamyelocytes 0 Hypochromia 0 Platelet Estimate Normal Polychromasia 0 Poikilocytosis 1+ Anisocytosis 1+ Microcytosis 1+ Macrocytosis 0 Spherocytes 1+ Ovalocytes 1+ Sodium Potassium Chloride Carbon Dioxide Anion Gap BUN Creatinine Est GFR (CKD-EPI)AfAm Est GFR (CKD-EPI)NonAf POC Glucometer 205 128 Random Glucose Calcium Total Bilirubin AST ALT Alkaline Phosphatase Total Protein Albumin Urine Color Urine Appearance Urine pH Ur Specific Tracy Urine Protein Urine Glucose (UA) Urine Ketones Urine Blood Urine Nitrite Urine Bilirubin Urine Urobilinogen Ur Leukocyte Esterase Urine WBC (Auto) Urine RBC (Auto) Urine Casts (Auto) U Pathogenic Cast Auto U Epithel Cells (Auto) Urine Bacteria (Auto) 07/26/19 07/26/19 07/27/19 19:14 22:15 06:04 WBC RBC Hgb Hct MCV MCH MCHC RDW Plt Count MPV Absolute Neuts (auto) Neutrophils % Neutrophils % (Manual) Band Neutrophils % Lymphocytes % Lymphocytes % (Manual) Monocytes % Monocytes % (Manual) Eosinophils % Eosinophils % (Manual) Basophils % Basophils % (Manual) Myelocytes % (Man) Promyelocytes % (Man) Blast Cells % (Manual) Nucleated RBC % Metamyelocytes Hypochromia Platelet Estimate Polychromasia Poikilocytosis Anisocytosis Microcytosis Macrocytosis Spherocytes Ovalocytes Sodium Potassium Chloride Carbon Dioxide Anion Gap BUN Creatinine Est GFR (CKD-EPI)AfAm Est GFR (CKD-EPI)NonAf POC Glucometer 209 103 Random Glucose Calcium Total Bilirubin AST ALT Alkaline Phosphatase Total Protein Albumin Urine Color Yellow Urine Appearance Turbid Urine pH 6.0 Ur Specific Tracy 1.018 Urine Protein 1+ H Urine Glucose (UA) Negative Urine Ketones Negative Urine Blood 1+ H Urine Nitrite Negative Urine Bilirubin Negative Urine Urobilinogen 0.2 Ur Leukocyte Esterase 3+ H Urine WBC (Auto) 102 Urine RBC (Auto) 5 Urine Casts (Auto) 17 U Pathogenic Cast Auto None seen U Epithel Cells (Auto) 6.0 Urine Bacteria (Auto) >9000 07/27/19 07/27/19 07:45 07:45 WBC 7.6 RBC 2.64 L Hgb 8.0 L Hct 23.5 L MCV 89.3 MCH 30.3 MCHC 33.9 RDW 15.6 Plt Count 372 MPV 7.0 L Absolute Neuts (auto) 5.7 Neutrophils % 74.2 Neutrophils % (Manual) Band Neutrophils % Lymphocytes % 14.9 D Lymphocytes % (Manual) Monocytes % 8.8 Monocytes % (Manual) Eosinophils % 1.8 Eosinophils % (Manual) Basophils % 0.3 Basophils % (Manual) Myelocytes % (Man) Promyelocytes % (Man) Blast Cells % (Manual) Nucleated RBC % 0 Metamyelocytes Hypochromia Platelet Estimate Polychromasia Poikilocytosis Anisocytosis Microcytosis Macrocytosis Spherocytes Ovalocytes Sodium 140 Potassium 4.6 Chloride 105 Carbon Dioxide 28 Anion Gap 8 BUN 20.6 H Creatinine 1.1 Est GFR (CKD-EPI)AfAm 51.55 Est GFR (CKD-EPI)NonAf 44.48 POC Glucometer Random Glucose 111 H Calcium 8.5 Total Bilirubin 0.2 AST 36 ALT 28 Alkaline Phosphatase 112 Total Protein 5.9 L Albumin 2.2 L Urine Color Urine Appearance Urine pH Ur Specific Tracy Urine Protein Urine Glucose (UA) Urine Ketones Urine Blood Urine Nitrite Urine Bilirubin Urine Urobilinogen Ur Leukocyte Esterase Urine WBC (Auto) Urine RBC (Auto) Urine Casts (Auto) U Pathogenic Cast Auto U Epithel Cells (Auto) Urine Bacteria (Auto) Active Medications Generic Name Dose Route Start Last Admin Trade Name Freq PRN Reason Stop Dose Admin Acetaminophen 650 mg 07/26/19 18:12 07/26/19 18:39 Tylenol - PO 650 mg Q6H PRN Administration Fever Or Pain Collagenase 1 applic 07/25/19 12:00 07/26/19 10:35 Santyl - TP 1 applic DAILY SILVINO Administration Protocol Docusate Sodium 100 mg 07/23/19 11:39 Colace - PO BID PRN CONSTIPATION Piperacillin Sod/Tazobactam 50 mls @ 100 mls/hr 07/27/19 09:00 Sod 2.25 gm/ Dextrose IVPB Q6H-IV SILVINO Protocol Piperacillin Sod/Tazobactam 50 mls @ 100 mls/hr 07/27/19 09:00 07/27/19 08:50 Sod 2.25 gm/ Dextrose IVPB 07/28/19 03:29 100 mls/hr Q6H-IV SILVINO Administration Insulin Aspart 1 vial 07/21/19 07:00 07/27/19 06:05 Novolog Vial Sliding Scale - SQ Not Given ACHS SILVINO Protocol Lactulose 20 gm 07/23/19 15:08 07/23/19 23:04 Cephulac (Oral Use) PO 20 gm Q8H PRN Administration CONSTIPATION Metoprolol Tartrate 12.5 mg 07/27/19 10:00 07/27/19 11:00 Lopressor - PO 12.5 mg BID SILVINO Administration Pantoprazole Sodium 40 mg 07/21/19 22:00 07/26/19 22:18 Protonix Iv IVPUSH 40 mg BID SILVINO Administration Quinapril HCl 40 mg 07/23/19 10:00 07/27/19 11:01 Accupril - PO 40 mg DAILY SILVINO Administration Senna 1 tab 07/23/19 22:00 07/26/19 22:18 Senna - PO 1 tab HS SILVINO Administration ASSESSMENT/PLAN: # Rectal bleeding R/O Lower GI Bleed -no further episodes of bleeding -Bleed likely due to multiple etiologies, prolapse, friability, asa use. -Per GI Rectal bleeding due to hemorrhoids. Bleeding from diverticulosis, vascular ectasias and ischemic colitis could be hourly and cause a drop in Hb. -Hgb stable -monitor H&H -cont Pantoprazole 40mg -colonoscopy discussed with family by GI, currently declining. #Low Grade Fevers -bcx,ucx -ID consulted -vanc/zoysn given -zosyn continued -no fevers since last night -CXR with left basilar infiltrate, L effusion. 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 (07/04 and 07/08). - s/p 3x venofer this admission. 1x last admission. will give her 1 more tomorrow. -Pantoprazole BID -monitor h/h #Right arm DVT -no heparin at this time due to bleed. was found last admission -+FOBT #Type 2 DM #HTN #HLD #History of TIA-aspirin held #Dvt ppx -no hep at this time Visit type - Emergency Visit Emergency Visit: Yes ED Registration Date: 07/21/19 Care time: The patient presented to the Emergency Department on the above date and was hospitalized for further evaluation of their emergent condition. - New Patient This patient is new to me today: Yes Date on this admission: 07/27/19 - Critical Care Critical Care patient: No ATTENDING PHYSICIAN STATEMENT I saw and evaluated the patient. I reviewed the resident's note and discussed the case with the resident. I agree with the resident's findings and plan as documented. SUBJECTIVE: OBJECTIVE: ASSESSMENT AND PLAN:
--- NOTE | 2019-07-27 12:00 | PN ---
Progress Note, SPECIALIST EMPLOYEE LABOR RELATIONS - Note Progress Note: Selected Entries 07/26/19 07/26/19 07/26/19 02:00 05:53 10:00 Breakfast 100% Lunch 50% Supper Temperature 99.6 F 98.1 F 98.3 F 07/26/19 07/26/19 07/26/19 14:00 18:00 22:00 Breakfast 100% Lunch 75% Supper 75% Temperature 98.7 F 100.3 F H 99.5 F 07/27/19 07/27/19 07/27/19 02:00 06:00 09:16 Breakfast Lunch Supper Temperature 97.9 F 98.4 F 98.9 F Laboratory Tests 07/27/19 07:45 WBC 7.6 On puree/honey thick liquid Good po acceptance reported Continue diet as ordered
[2019-07-27] MEDS: PANTOPRAZOLE SODIUM 40 MG VIAL IVPUSH SCH ×2 (12:01→22:02)
[2019-07-27] MEDS: COLLAGENASE CLOSTRIDIUM HIST. 30 GRAMS TUBE TP SCH (12:01)
--- NOTE | 2019-07-27 15:08 | PN ---
Progress Note (short form) - Note Progress Note: flow grade intermittent temp no aspiration noted by speech pathologist Vital Signs Period Temp Pulse Resp BP Sys/Tolentino Pulse Ox Last 24 Hr 97.9 F-100.3 F 83-114 18-22 110-177/56-79 98-98 cor-rrr lungs decreased bs at bases abd soft,nt ext no edema influenza negative cxray retrocardiac area ?air bronchograms- infiltrate versus atelectasis CBC, BMP 07/27/19 07:45 07/27/19 07:45 Microbiology 07/24/19 19:16 Blood - Peripheral Venous Blood Culture - Preliminary NO GROWTH OBTAINED AFTER 48 HOURS, INCUBATION TO CONTINUE FOR 3 DAYS. 07/24/19 19:10 Blood - Peripheral Venous Blood Culture - Preliminary NO GROWTH OBTAINED AFTER 48 HOURS, INCUBATION TO CONTINUE FOR 3 DAYS. 07/25/19 14:00 Urine - Urine Clean Catch Urine Culture - Final NO GROWTH OBTAINED a/p now on zosyn would get chest ct to evaluate retrocardiac area chest pt ordered Problem List - Problems (1) Fever Code(s): R50.9 - FEVER, UNSPECIFIED (2) Aspiration pneumonia Code(s): J69.0 - PNEUMONITIS DUE TO INHALATION OF FOOD AND VOMIT
[2019-07-27] MEDS: SENNOSIDES 8.6MG TABLET (FP) PO SCH (22:02)
[2019-07-28] MEDS ORDERED: PIPERACILLIN/TAZOBACTAM 2.25 GM VIAL IVPB ONE ×4 (01:25→20:42)
[2019-07-28] MEDS ORDERED: DEXTROSE 5%-WATER - 50 ML IVPB ONE ×4 (01:25→20:42)
[2019-07-28] MEDS: PIPERACILLIN/TAZOB 2.25 GM 2.25 GM in DEXTROSE 5%-WATER - 50 ML IVPB SCH ×4 (02:46→20:50)
[2019-07-28] MEDS: INSULIN SLIDING SCALE (NOVOLOG) 1 VIAL SQ SCH ×4 (06:27→22:21)
--- NOTE | 2019-07-28 08:47 | PN ---
Teaching Attending Note Name of Resident: Joanne Fields ATTENDING PHYSICIAN STATEMENT I saw and evaluated the patient. I reviewed the resident's note and discussed the case with the resident. I agree with the resident's findings and plan as documented. SUBJECTIVE: Offers no new complaint and when appropriate OBJECTIVE: Vital Signs Temp 99.5 F 07/28/19 06:59 Pulse 91 H 07/28/19 06:59 Resp 20 07/28/19 06:59 BP 103/62 07/28/19 06:59 Pulse Ox 98 07/27/19 21:00 General: Elderly woman, comfortable, not in distress HEENT; mucous membranes moist, no anemia, no jaundice, PERRLA, no nystagmus Neck: No JVD, supple, no bruit, thyroid palpably normal, normal carotid pulsations. Chest: Nontender, bilateral basal rales. CVS: S1-S2 regular/irregular no murmur/gallop/rub Abdomen: bright red blood in the rectum, no active bleeding, nondistended, soft , bowel sounds present. Extremities: Stage III sacral decubitus, No cough tenderness, pulses present MECHANIC HELPER: Nonverbal, oriented to self CBC, BMP 07/28/19 07:56 07/28/19 07:56 CT chest: Multilobar infiltrate. Assessment and plan: 89 year old female with PMH of HLD, type II DM, hypothyroidism, GERD, and dementia Patient was transferred from [facility] for evaluation of bright red blood per rectum, during the course of hospitalization there is no active bleeding, H&H are stable, evaluated by GI at present no plan for colonoscopy. Patient developed fever and respiratory distress was put on Zosyn day 2 and afebrile, yesterday CT chest was performed that shows multiple infiltrate Impression: Multilobar pneumonia possibility of recurrent aspiration follow-up ID recommendations. Problem List - Problems (1) ND (blood per rectum) Assessment/Plan: No active bleeding since hospitalization H&H is stable we will continue bowel regimen. Evaluation by GI no plan for colonoscopy.. Code(s): K62.5 - HEMORRHAGE OF ANUS AND RECTUM (2) Hypertension Assessment/Plan: Well-controlled will continue oral blood pressure medication if indicated. Code(s): I10 - ESSENTIAL (PRIMARY) HYPERTENSION (3) Dementia Assessment/Plan: Chronic at baseline nonverbal Code(s): F03.90 - UNSPECIFIED DEMENTIA WITHOUT BEHAVIORAL DISTURBANCE (4) Hypercholesterolemia Assessment/Plan: Continue statin once able to tolerate p.o. Code(s): E78.00 - PURE HYPERCHOLESTEROLEMIA, UNSPECIFIED (5) DVT of upper extremity (deep vein thrombosis) Assessment/Plan: History of DVT right upper extremity not on any anticoagulation due to GI bleed. Code(s): I82.629 - ACUTE EMBOLISM AND THROMBOSIS OF DEEP VN UNSP UP EXTREM (6) Hypothyroid Assessment/Plan: Continue levothyroxine will start tolerating p.o. Code(s): E03.9 - HYPOTHYROIDISM, UNSPECIFIED (7) Type 2 diabetes mellitus Assessment/Plan: Patient is n.p.o. continue Accu-Chek every 6 hourly and fingersticks start on D5 half-normal saline once fingersticks drop less than 150 Code(s): E11.9 - TYPE 2 DIABETES MELLITUS WITHOUT COMPLICATIONS (8) Sacral decubitus ulcer, stage III Assessment/Plan: Patient is a stage III sacral decubitus needs wound care ulcer base looks healthy. Code(s): L89.153 - PRESSURE ULCER OF SACRAL REGION, STAGE 3 (9) Anemia Assessment/Plan: Chronic anemia presents with lower GI bleed, H&H remained stable on IV and multivitamins Code(s): D64.9 - ANEMIA, UNSPECIFIED (10) Aspiration pneumonia Assessment/Plan: Continue Zosyn, speech and swallow evaluation appreciated. Problems reviewed: Yes Code(s): J69.0 - PNEUMONITIS DUE TO INHALATION OF FOOD AND VOMIT
[2019-07-28 08:48] LABS: BASO % 0.7 % (0-2.0); EOS % 1.7 % (0-4.5); HEMATOCRIT 23.1 % (32.4-45.2); HEMOGLOBIN 7.6 GM/dL (10.7-15.3); LYMPH % 17.6 % (8-40); MCH 29.8 pg (25.7-33.7); MCHC 32.9 g/dl (32.0-36.0); MEAN CELL VOLUME 90.5 fl (80-96); MEAN PLT VOLUME 6.9 fl (7.5-11.1); MONO % 9.3 % (3.8-10.2); NEUT % 70.7 % (42.8-82.8); PLATELET COUNT 376 K/MM3 (134-434); RBC 2.55 M/mm3 (3.60-5.2); RDW 15.5 % (11.6-15.6); WHITE BLOOD COUNT 8.7 K/mm3 (4.0-10.0)
[2019-07-28 09:17] LABS: ALBUMIN 2.1 g/dl (3.4-5.0); BILIRUBIN,TOTAL 0.3 mg/dL (0.2-1); BLOOD UREA NITROGEN 20.1 mg/dL (7-18); CALCIUM 8.6 mg/dL (8.5-10.1); CREATININE 1.1 mg/dL (0.55-1.3); POTASSIUM 4.6 mmol/L (3.5-5.1); TOT PROT 5.9 g/dl (6.4-8.2)
[2019-07-28] MEDS: PANTOPRAZOLE SODIUM 40 MG VIAL IVPUSH SCH (10:04)
[2019-07-28] MEDS ORDERED: PT OWN MED DRAWER 7, Y5N ONE (10:05)
[2019-07-28] MEDS: QUINAPRIL HCL 40 MG TABLET (FP) PO SCH (10:06)
[2019-07-28] MEDS: METOPROLOL TARTRATE 25 MG TABLET (FP) PO SCH ×2 (10:06→22:21)
--- NOTE | 2019-07-28 10:38 | PN ---
Progress Note (short form) - Note Progress Note: afebrile today awake NAD Vital Signs Period Temp Pulse Resp BP Sys/Tolentino Pulse Ox Last 24 Hr 98.3 F-99.5 F 84-102 20-20 103-157/62-82 98 cor-rrr lungs decreased bs at bases abd soft,nt ext no edema CBC, BMP 07/28/19 07:56 07/28/19 07:56 Microbiology 07/26/19 20:35 Blood - Peripheral Venous Blood Culture - Preliminary Staphylococcus Coagulase Neg 07/27/19 01:45 Urine - Urine - Catheterized Urine Culture - Preliminary Lactose Fermenting Neg Bacilli Gram Negative Hosea Group D Strep Or Entero Coccus 07/26/19 21:20 Blood - Peripheral Venous Blood Culture - Preliminary NO GROWTH OBTAINED AFTER 24 HOURS, INCUBATION TO CONTINUE FOR 4 DAYS. 07/24/19 19:16 Blood - Peripheral Venous Blood Culture - Preliminary NO GROWTH OBTAINED AFTER 72 HOURS, INCUBATION TO CONTINUE FOR 2 DAYS. 07/24/19 19:10 Blood - Peripheral Venous Blood Culture - Preliminary NO GROWTH OBTAINED AFTER 72 HOURS, INCUBATION TO CONTINUE FOR 2 DAYS. 07/25/19 14:00 Urine - Urine Clean Catch Urine Culture - Final NO GROWTH OBTAINED chest ct- patchy bilateral infiltrates a/p bilateral infiltrates- probable intermittent aspiration continue zosy for total 72 hours, then po augmentin aspiration precautions legionella urinary antigen dw hospitalist service
[2019-07-28] MEDS: COLLAGENASE CLOSTRIDIUM HIST. 30 GRAMS TUBE TP SCH (10:53)
[2019-07-28 11:59] LABS: ANISOCYTOSIS 1+; MACROCYTOSIS 0; OVALOCYTE 1+; PLATELET ESTIMATE NORMAL
--- NOTE | 2019-07-28 12:18 | PN ---
Progress Note, MASTER CARPENTER - Note Progress Note: Selected Entries 07/26/19 07/26/19 07/26/19 02:00 05:53 10:00 Breakfast 100% Lunch 50% Supper Temperature 99.6 F 98.1 F 98.3 F 07/26/19 07/26/19 07/26/19 14:00 18:00 22:00 Breakfast 100% Lunch 75% Supper 75% Temperature 98.7 F 100.3 F H 99.5 F 07/27/19 07/27/19 07/27/19 02:00 06:00 09:16 Breakfast Lunch Supper Temperature 97.9 F 98.4 F 98.9 F Laboratory Tests 07/27/19 07:45 WBC 7.6 Selected Entries 07/27/19 07/27/19 07/27/19 02:00 06:00 09:16 Breakfast Lunch Temperature 97.9 F 98.4 F 98.9 F 07/27/19 07/27/19 07/27/19 14:00 18:00 22:00 Breakfast 100% 100% Lunch 75% 75% Temperature 98.3 F 98.9 F 07/28/19 07/28/19 06:59 09:00 Breakfast Lunch Temperature 99.5 F 98.3 F Laboratory Tests 07/26/19 07/27/19 07/28/19 07:50 07:45 07:56 WBC 7.2 7.6 8.7 On puree/honey thick liquid Good po acceptance reported Continue diet as ordered Suggest MBS to r/o silent aspiration and determine safety of PO intAKE. Pt's daughter and son are in agreement. ID feels pt is aspirating intermittently. Consider MBS to further assess.
--- NOTE | 2019-07-28 16:17 | PN ---
Physical Exam: SUBJECTIVE: Patient seen and examined. no events overnight. OBJECTIVE: Vital Signs Period Temp Pulse Resp BP Sys/Tolentino Pulse Ox Last 24 Hr 98.3 F-99.5 F 87-102 20-20 103-157/62-82 98 GENERAL: in NAD, nonverbal, looks comfortable EYES: PERRL, sclera anicteric ENT: moist mucous membranes. NECK: supple. LUNGS: decreased breath sounds, no accessory muscle use. HEART: RRR ABDOMEN: Soft, nontender, nondistended, normoactive bowel sounds EXTREMITIES: 2+ pulses, no edema. Laboratory Results - last 24 hr 07/27/19 07/27/19 07/28/19 17:09 21:10 05:59 WBC RBC Hgb Hct MCV MCH MCHC RDW Plt Count MPV Absolute Neuts (auto) Neutrophils % Neutrophils % (Manual) Band Neutrophils % Lymphocytes % Lymphocytes % (Manual) Monocytes % Monocytes % (Manual) Eosinophils % Eosinophils % (Manual) Basophils % Basophils % (Manual) Myelocytes % (Man) Promyelocytes % (Man) Blast Cells % (Manual) Nucleated RBC % Metamyelocytes Hypochromia Platelet Estimate Platelet Comment Polychromasia Poikilocytosis Anisocytosis Microcytosis Macrocytosis Spherocytes Ovalocytes [place] Cells Sodium Potassium Chloride Carbon Dioxide Anion Gap BUN Creatinine Est GFR (CKD-EPI)AfAm Est GFR (CKD-EPI)NonAf POC Glucometer 136 170 117 Random Glucose Calcium Total Bilirubin AST ALT Alkaline Phosphatase Total Protein Albumin 07/28/19 07/28/19 07/28/19 07:56 07:56 11:01 WBC 8.7 RBC 2.55 L Hgb 7.6 L Hct 23.1 L MCV 90.5 MCH 29.8 MCHC 32.9 RDW 15.5 Plt Count 376 MPV 6.9 L Absolute Neuts (auto) 6.2 Neutrophils % 70.7 Neutrophils % (Manual) 65.7 Band Neutrophils % 11.1 Lymphocytes % 17.6 Lymphocytes % (Manual) 15.2 D Monocytes % 9.3 Monocytes % (Manual) 2 L Eosinophils % 1.7 Eosinophils % (Manual) 2.0 Basophils % 0.7 Basophils % (Manual) 0.0 Myelocytes % (Man) 2 D Promyelocytes % (Man) 0 Blast Cells % (Manual) 0 Nucleated RBC % 0 Metamyelocytes 0 Hypochromia 0 Platelet Estimate Normal Platelet Comment Present Polychromasia 1+ Poikilocytosis 1+ Anisocytosis 1+ Microcytosis 1+ Macrocytosis 0 Spherocytes 1+ Ovalocytes 1+ Anai Cells 1+ Sodium 139 Potassium 4.6 Chloride 105 Carbon Dioxide 26 Anion Gap 8 BUN 20.1 H Creatinine 1.1 Est GFR (CKD-EPI)AfAm 51.55 Est GFR (CKD-EPI)NonAf 44.48 POC Glucometer 218 Random Glucose 115 H Calcium 8.6 Total Bilirubin 0.3 AST 54 H ALT 38 Alkaline Phosphatase 114 Total Protein 5.9 L Albumin 2.1 L Active Medications Generic Name Dose Route Start Last Admin Trade Name Freq PRN Reason Stop Dose Admin Acetaminophen 650 mg 07/26/19 18:12 07/26/19 18:39 Tylenol - PO 650 mg Q6H PRN Administration Fever Or Pain Collagenase 1 applic 07/25/19 12:00 07/28/19 10:53 Santyl - TP 1 applic DAILY SILVINO Administration Protocol Docusate Sodium 100 mg 07/23/19 11:39 Colace - PO BID PRN CONSTIPATION Piperacillin Sod/Tazobactam 50 mls @ 100 mls/hr 07/27/19 21:00 07/28/19 14:39 Sod 2.25 gm/ Dextrose IVPB 100 mls/hr Q6H-IV SILVINO Administration Protocol Insulin Aspart 1 vial 07/21/19 07:00 07/28/19 11:55 Novolog Vial Sliding Scale - SQ 4 units ACHS SILVINO Administration Protocol Lactulose 20 gm 07/23/19 15:08 07/23/19 23:04 Cephulac (Oral Use) PO 20 gm Q8H PRN Administration CONSTIPATION Metoprolol Tartrate 12.5 mg 07/27/19 10:00 07/28/19 10:06 Lopressor - PO 12.5 mg BID SILVINO Administration Pantoprazole Sodium 40 mg 07/21/19 22:00 07/28/19 10:04 Protonix Iv IVPUSH 40 mg BID SILVINO Administration Quinapril HCl 40 mg 07/23/19 10:00 07/28/19 10:06 Accupril - PO 40 mg DAILY SILVINO Administration Senna 1 tab 07/23/19 22:00 07/27/19 22:02 Senna - PO 1 tab HS SILVINO Administration ASSESSMENT/PLAN: Impression: Multilobar pneumonia possibility of recurrent aspiration follow-up ID recommendations. #Multilobal PNA -likely aspiration -check [place] -FU cultures -IV abx day 2 -fu ID reccs. -currently afebrile -monitor vital signs -aspiraton pecautions # Rectal bleeding R/O Lower GI Bleed -no further episodes of bleeding -Bleed likely due to multiple etiologies, prolapse, friability, asa use. -Per GI Rectal bleeding due to hemorrhoids. Bleeding from diverticulosis, vascular ectasias and ischemic colitis could be hourly and cause a drop in Hb. -Hgb stable -monitor H&H -cont Pantoprazole 40mg -colonoscopy discussed with family by GI, currently declining. 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 (07/04 and 07/08). - s/p 3x venofer this admission. 1x last admission. -Pantoprazole BID -monitor h/h #Sacral decubitus ulcer stage 2 -wound care #Right arm DVT -no heparin at this time due to bleed. was found last admission -+FOBT #Type 2 DM #HTN #HLD #History of TIA-aspirin held #Dvt ppx -no hep at this time Visit type - Emergency Visit Emergency Visit: Yes ED Registration Date: 07/21/19 Care time: The patient presented to the Emergency Department on the above date and was hospitalized for further evaluation of their emergent condition. - New Patient This patient is new to me today: No - Critical Care Critical Care patient: No ATTENDING PHYSICIAN STATEMENT I saw and evaluated the patient. I reviewed the resident's note and discussed the case with the resident. I agree with the resident's findings and plan as documented. SUBJECTIVE: OBJECTIVE: ASSESSMENT AND PLAN:
[2019-07-28] MEDS: SENNOSIDES 8.6MG TABLET (FP) PO SCH (22:22)
[2019-07-28] MEDS: ACETAMINOPHEN 325 MG TABLET (FP) PO PRN (22:33)
[2019-07-29] MEDS ORDERED: PIPERACILLIN/TAZOBACTAM 2.25 GM VIAL IVPB ONE ×4 (01:11→20:33)
[2019-07-29] MEDS ORDERED: DEXTROSE 5%-WATER - 50 ML IVPB ONE ×4 (01:11→20:34)
[2019-07-29] MEDS: PIPERACILLIN/TAZOB 2.25 GM 2.25 GM in DEXTROSE 5%-WATER - 50 ML IVPB SCH ×4 (02:32→20:40)
[2019-07-29] MEDS: INSULIN SLIDING SCALE (NOVOLOG) 1 VIAL SQ SCH ×4 (06:47→22:50)
[2019-07-29] MEDS ORDERED: INSULIN (NOVOLOG) ASPART 100 UNITS/ML 10ML VIAL ONE (06:57)
--- NOTE | 2019-07-29 08:29 | PN ---
Teaching Attending Note Name of Resident: Joanne Fields ATTENDING PHYSICIAN STATEMENT I saw and evaluated the patient. I reviewed the resident's note and discussed the case with the resident. I agree with the resident's findings and plan as documented. SUBJECTIVE: Offers no new complaints OBJECTIVE: Vital Signs Temperature 97.6 F 07/29/19 06:00 Pulse Rate 93 H 07/29/19 06:00 Respiratory Rate 20 07/29/19 06:00 Blood Pressure 149/70 07/29/19 06:00 O2 Sat by Pulse Oximetry (%) 96 07/28/19 21:00 General: Elderly woman, comfortable, not in distress HEENT; mucous membranes moist, no anemia, no jaundice, PERRLA, no nystagmus Neck: No JVD, supple, no bruit, thyroid palpably normal, normal carotid pulsations. Chest: Nontender, bilateral basal rales. CVS: S1-S2 regular/irregular no murmur/gallop/rub Abdomen: bright red blood in the rectum, no active bleeding, nondistended, soft , bowel sounds present. 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 Assessment and plan: 89 year old female with PMH of HLD, type II DM, hypothyroidism, GERD, and dementia Patient was transferred from [facility] for evaluation of bright red blood per rectum, during the course of hospitalization there is no active bleeding, H&H are stable, evaluated by GI at present no plan for colonoscopy. Patient developed fever and respiratory distress was put on Zosyn day 2 and afebrile, yesterday CT chest was performed that shows multiple infiltrate Impression: Multilobar pneumonia possibility of recurrent aspiration follow-up ID recommendations. Problem List - Problems (1) MT (blood per rectum) Assessment/Plan: No active bleeding since hospitalization H&H is stable we will continue bowel regimen. Evaluation by GI no plan for colonoscopy.. Code(s): K62.5 - HEMORRHAGE OF ANUS AND RECTUM (2) Hypertension Assessment/Plan: Well-controlled will continue oral blood pressure medication if indicated. Code(s): I10 - ESSENTIAL (PRIMARY) HYPERTENSION (3) Dementia Assessment/Plan: Chronic at baseline nonverbal Code(s): F03.90 - UNSPECIFIED DEMENTIA WITHOUT BEHAVIORAL DISTURBANCE (4) Hypercholesterolemia Assessment/Plan: Continue statin once able to tolerate p.o. Code(s): E78.00 - PURE HYPERCHOLESTEROLEMIA, UNSPECIFIED (5) DVT of upper extremity (deep vein thrombosis) Assessment/Plan: History of DVT right upper extremity not on any anticoagulation due to GI bleed. Code(s): I82.629 - ACUTE EMBOLISM AND THROMBOSIS OF DEEP VN UNSP UP EXTREM (6) Hypothyroid Assessment/Plan: Continue levothyroxine will start tolerating p.o. Code(s): E03.9 - HYPOTHYROIDISM, UNSPECIFIED (7) Type 2 diabetes mellitus Assessment/Plan: Patient is n.p.o. continue Accu-Chek every 6 hourly and fingersticks start on D5 half-normal saline once fingersticks drop less than 150 Code(s): E11.9 - TYPE 2 DIABETES MELLITUS WITHOUT COMPLICATIONS (8) Sacral decubitus ulcer, stage III Assessment/Plan: Patient is a stage III sacral decubitus needs wound care ulcer base looks healthy. Code(s): L89.153 - PRESSURE ULCER OF SACRAL REGION, STAGE 3 (9) Anemia Assessment/Plan: Chronic anemia presents with lower GI bleed, H&H remained stable on IV and multivitamins Code(s): D64.9 - ANEMIA, UNSPECIFIED (10) Aspiration pneumonia Assessment/Plan: Continue Zosyn, speech and swallow evaluation appreciated. Code(s): J69.0 - PNEUMONITIS DUE TO INHALATION OF FOOD AND VOMIT (11) UTI (urinary tract infection) Assessment/Plan: Urine culture growing multiple organisms including Klebsiella follow-up with ID for appropriate antibiotic Problems reviewed: Yes Code(s): N39.0 - URINARY TRACT INFECTION, SITE NOT SPECIFIED
[2019-07-29 09:13] LABS: BASO % 0.5 % (0-2.0); EOS % 1.9 % (0-4.5); HEMATOCRIT 22.8 % (32.4-45.2); HEMOGLOBIN 7.7 GM/dL (10.7-15.3); LYMPH % 17.5 % (8-40); MCH 30.4 pg (25.7-33.7); MCHC 33.7 g/dl (32.0-36.0); MEAN CELL VOLUME 90.1 fl (80-96); MEAN PLT VOLUME 6.8 fl (7.5-11.1); MONO % 9.4 % (3.8-10.2); NEUT % 70.7 % (42.8-82.8); PLATELET COUNT 375 K/MM3 (134-434); RBC 2.53 M/mm3 (3.60-5.2); RDW 15.8 % (11.6-15.6); WHITE BLOOD COUNT 8.5 K/mm3 (4.0-10.0)
[2019-07-29] MEDS ORDERED: PT OWN MED DRAWER 7, Y5N ONE ×2 (09:23→10:55)
[2019-07-29 09:45] LABS: ALBUMIN 2.1 g/dl (3.4-5.0); BILIRUBIN,TOTAL 0.2 mg/dL (0.2-1); BLOOD UREA NITROGEN 19.3 mg/dL (7-18); CALCIUM 8.8 mg/dL (8.5-10.1); CREATININE 0.9 mg/dL (0.55-1.3); POTASSIUM 4.7 mmol/L (3.5-5.1); TOT PROT 5.9 g/dl (6.4-8.2)
[2019-07-29] MEDS: PANTOPRAZOLE SODIUM 40 MG VIAL IVPUSH SCH (10:19)
[2019-07-29] MEDS: METOPROLOL TARTRATE 25 MG TABLET (FP) PO SCH ×3 (10:19→22:52)
[2019-07-29] MEDS: COLLAGENASE CLOSTRIDIUM HIST. 30 GRAMS TUBE TP SCH (10:28)
[2019-07-29] MEDS: QUINAPRIL HCL 40 MG TABLET (FP) PO SCH (11:21)
--- NOTE | 2019-07-29 14:01 | PN ---
Physical Exam: SUBJECTIVE: Patient seen and examined. Low grade at 10pm 100.1 temp. OBJECTIVE: Vital Signs Period Temp Pulse Resp BP Sys/Tolentino Pulse Ox Last 24 Hr 97.6 F-100.1 F 69-103 20-20 103-149/47-82 96-99 GENERAL: in NAD, nonverbal, looks comfortable EYES: PERRL, sclera anicteric ENT: moist mucous membranes. NECK: supple. LUNGS: decreased breath sounds, no accessory muscle use. HEART: RRR ABDOMEN: Soft, nontender, nondistended, normoactive bowel sounds EXTREMITIES: 2+ pulses, no edema. Laboratory Results - last 24 hr 07/28/19 07/28/19 07/29/19 16:32 21:30 06:35 WBC RBC Hgb Hct MCV MCH MCHC RDW Plt Count MPV Absolute Neuts (auto) Neutrophils % Lymphocytes % Monocytes % Eosinophils % Basophils % Nucleated RBC % Sodium Potassium Chloride Carbon Dioxide Anion Gap BUN Creatinine Est GFR (CKD-EPI)AfAm Est GFR (CKD-EPI)NonAf POC Glucometer 108 240 86 Random Glucose Calcium Total Bilirubin AST ALT Alkaline Phosphatase Total Protein Albumin 07/29/19 07/29/19 07/29/19 07:45 07:45 11:24 WBC 8.5 RBC 2.53 L Hgb 7.7 L Hct 22.8 L MCV 90.1 MCH 30.4 MCHC 33.7 RDW 15.8 H Plt Count 375 MPV 6.8 L Absolute Neuts (auto) 6.0 Neutrophils % 70.7 Lymphocytes % 17.5 Monocytes % 9.4 Eosinophils % 1.9 Basophils % 0.5 Nucleated RBC % 0 Sodium 140 Potassium 4.7 Chloride 106 Carbon Dioxide 27 Anion Gap 8 BUN 19.3 H Creatinine 0.9 Est GFR (CKD-EPI)AfAm 65.70 Est GFR (CKD-EPI)NonAf 56.69 POC Glucometer 207 Random Glucose 87 Calcium 8.8 Total Bilirubin 0.2 AST 42 H ALT 33 Alkaline Phosphatase 117 Total Protein 5.9 L Albumin 2.1 L Active Medications Generic Name Dose Route Start Last Admin Trade Name Freq PRN Reason Stop Dose Admin Acetaminophen 650 mg 07/26/19 18:12 07/28/19 22:33 Tylenol - PO 650 mg Q6H PRN Administration Fever Or Pain Collagenase 1 applic 07/25/19 12:00 07/29/19 10:28 Santyl - TP 1 applic DAILY SILVINO Administration Protocol Docusate Sodium 100 mg 07/23/19 11:39 Colace - PO BID PRN CONSTIPATION Piperacillin Sod/Tazobactam 50 mls @ 100 mls/hr 07/27/19 21:00 07/29/19 09:19 Sod 2.25 gm/ Dextrose IVPB 100 mls/hr Q6H-IV SILVINO Administration Protocol Insulin Aspart 1 vial 07/21/19 07:00 07/29/19 12:13 Novolog Vial Sliding Scale - SQ 4 units ACHS SILVINO Administration Protocol Lactulose 20 gm 07/23/19 15:08 07/23/19 23:04 Cephulac (Oral Use) PO 20 gm Q8H PRN Administration CONSTIPATION Metoprolol Tartrate 12.5 mg 07/27/19 10:00 07/29/19 11:21 Lopressor - PO Not Given BID SILVINO Pantoprazole Sodium 40 mg 07/29/19 10:00 07/29/19 10:19 Protonix Iv IVPUSH 40 mg DAILY SILVINO Administration Quinapril HCl 40 mg 07/23/19 10:00 07/29/19 11:21 Accupril - PO Not Given DAILY SILVINO Senna 1 tab 07/23/19 22:00 07/28/19 22:22 Senna - PO 1 tab HS SILVINO Administration Impression: Multilobar pneumonia possibility of recurrent aspiration follow-up ID recommendations. ASSESSMENT/PLAN: #Multilobal PNA -likely aspiration -urine cultures: Klebsiella, lactose fermenting gram neg -IV abx day 3 -fu ID reccs. -currently afebrile -monitor vital signs -aspiraton pecautions # Rectal bleeding R/O Lower GI Bleed -no further episodes of bleeding -Bleed likely due to multiple etiologies, prolapse, friability, asa use. -Per GI Rectal bleeding due to hemorrhoids. Bleeding from diverticulosis, vascular ectasias and ischemic colitis could be hourly and cause a drop in Hb. -Hgb stable -monitor H&H -cont Pantoprazole 40mg -colonoscopy discussed with family by GI, currently declining. #constipation -2 BMs yesterday -bowel regimen #Iron def Anemia -likely due to chronic bleeding likely from multiple etiologies that include residual rectal prolapse repair site friablity, suspected small bowel vascular ectasias and possible large hiatal hernia [place] ulcers per GI -s/p 2 Units PRBC last admission. (07/04 and 07/08). - s/p 3x venofer this admission. 1x last admission. -Pantoprazole daily -monitor h/h #Sacral decubitus ulcer stage 2 -wound care #Right arm DVT -no heparin at this time due to possible bleed -was found last admission #Type 2 DM #HTN #HLD #History of TIA-aspirin held #Dvt ppx -no hep at this time Visit type - Emergency Visit Emergency Visit: Yes ED Registration Date: 07/21/19 Care time: The patient presented to the Emergency Department on the above date and was hospitalized for further evaluation of their emergent condition. - New Patient This patient is new to me today: Yes Date on this admission: 07/29/19 - Critical Care Critical Care patient: No ATTENDING PHYSICIAN STATEMENT I saw and evaluated the patient. I reviewed the resident's note and discussed the case with the resident. I agree with the resident's findings and plan as documented. SUBJECTIVE: OBJECTIVE: ASSESSMENT AND PLAN:
--- NOTE | 2019-07-29 14:04 | PN ---
Progress Note, [employer] - Note Progress Note: Selected Entries 07/29/19 07/29/19 07/29/19 02:00 06:00 10:00 Breakfast 75% Lunch 75% Temperature 99.3 F 97.6 F 98.7 F Laboratory Tests 07/28/19 07/29/19 07:56 07:45 WBC 8.7 8.5 Mbs reviewed. Compensatory swallowing strategies reviewed
[2019-07-29 14:26] LABS: ANISOCYTOSIS 1+; MACROCYTOSIS 0; OVALOCYTE 1+; PLATELET ESTIMATE NORMAL
--- NOTE | 2019-07-29 16:59 | PN ---
Progress Note (short form) - Note Progress Note: MBS noted with some silent aspiration with cup Vital Signs Period Temp Pulse Resp BP Sys/Tolentino Pulse Ox Last 24 Hr 97.6 F-100.1 F 69-104 20- 103-152/47-88 96-99 cor-rrr lungs decreased bs at bases abd soft,nt ext no edema CBC, BMP 07/29/19 07:45 07/29/19 07:45 Microbiology 07/27/19 01:45 Urine - Urine - Catheterized Urine Culture - Preliminary Klebsiella Pneumoniae Lactose Fermenting Neg Bacilli#2 Group D Strep Or Entero Coccus 07/26/19 20:35 Blood - Peripheral Venous Blood Culture - Final Staphylococcus Epidermidis 07/26/19 21:20 Blood - Peripheral Venous Blood Culture - Preliminary NO GROWTH OBTAINED AFTER 48 HOURS, INCUBATION TO CONTINUE FOR 3 DAYS. 07/24/19 19:16 Blood - Peripheral Venous Blood Culture - Preliminary NO GROWTH OBTAINED AFTER 96 HOURS, INCUBATION TO CONTINUE FOR 1 DAYS. 07/24/19 19:10 Blood - Peripheral Venous Blood Culture - Preliminary NO GROWTH OBTAINED AFTER 96 HOURS, INCUBATION TO CONTINUE FOR 1 DAYS. 07/28/19 14:45 Urine For Antigen Detection Legionella Antigen - Final 07/28/19 14:45 Urine For Antigen Detection Streptococcus pneumoniae Antigen (M - Final 07/25/19 14:00 Urine - Urine Clean Catch Urine Culture - Final NO GROWTH OBTAINED Active Medications Acetaminophen (Tylenol -) 650 mg PO Q6H PRN PRN Reason: Fever Or Pain Last Admin: 07/28/19 22:33 Dose: 650 mg Collagenase (Santyl -) 1 applic TP DAILY SILVINO; Protocol Last Admin: 07/29/19 10:28 Dose: 1 applic Docusate Sodium (Colace -) 100 mg PO BID PRN PRN Reason: CONSTIPATION Piperacillin Sod/Tazobactam (Sod 2.25 gm/ Dextrose) 50 mls @ 100 mls/hr IVPB Q6H-IV SILVINO; Protocol Last Admin: 07/29/19 15:33 Dose: 100 mls/hr Insulin Aspart (Novolog Vial Sliding Scale -) 1 vial SQ ACHS SILVINO; Protocol Last Admin: 07/29/19 16:50 Dose: Not Given Lactulose (Cephulac (Oral Use)) 20 gm PO Q8H PRN PRN Reason: CONSTIPATION Last Admin: 07/23/19 23:04 Dose: 20 gm Metoprolol Tartrate (Lopressor -) 12.5 mg PO BID [facility] Last Admin: 07/29/19 11:21 Dose: Not Given Pantoprazole Sodium (Protonix Iv) 40 mg IVPUSH DAILY [facility] Last Admin: 07/29/19 10:19 Dose: 40 mg Quinapril HCl (Accupril -) 40 mg PO DAILY [facility] Last Admin: 07/29/19 11:21 Dose: Not Given Senna (Senna -) 1 tab PO HS [facility] Last Admin: 07/28/19 22:22 Dose: [address]- patchy bilateral infiltrates a/p bilateral infiltrates- most likley due to aspiration (noted on MBS)-zosyn day #3 to follow instructions per speech pathology can switch to po augmentin in am -treat for another 4-5 days po aspiration precautions
[2019-07-29] MEDS: SENNOSIDES 8.6MG TABLET (FP) PO SCH (22:52)
[2019-07-30] MEDS ORDERED: PIPERACILLIN/TAZOBACTAM 2.25 GM VIAL IVPB ONE ×2 (02:26→09:15)
[2019-07-30] MEDS ORDERED: DEXTROSE 5%-WATER - 50 ML IVPB ONE ×2 (02:26→09:15)
[2019-07-30] MEDS: PIPERACILLIN/TAZOB 2.25 GM 2.25 GM in DEXTROSE 5%-WATER - 50 ML IVPB SCH ×2 (02:32→09:25)
[2019-07-30] MEDS: INSULIN SLIDING SCALE (NOVOLOG) 1 VIAL SQ SCH ×4 (06:05→23:48)
[2019-07-30 09:12] LABS: BASO % 0.4 % (0-2.0); EOS % 1.2 % (0-4.5); HEMATOCRIT 22.3 % (32.4-45.2); HEMOGLOBIN 7.6 GM/dL (10.7-15.3); LYMPH % 23.5 % (8-40); MCH 30.6 pg (25.7-33.7); MCHC 33.9 g/dl (32.0-36.0); MEAN CELL VOLUME 90.2 fl (80-96); MEAN PLT VOLUME 6.3 fl (7.5-11.1); MONO % 7.9 % (3.8-10.2); PLATELET COUNT 376 K/MM3 (134-434); RBC 2.48 M/mm3 (3.60-5.2); RDW 15.6 % (11.6-15.6); WHITE BLOOD COUNT 7.5 K/mm3 (4.0-10.0)
[2019-07-30] MEDS ORDERED: PT OWN MED DRAWER 7, Y5N ONE ×2 (09:14→18:50)
[2019-07-30] MEDS: METOPROLOL TARTRATE 25 MG TABLET (FP) PO SCH ×2 (09:25→23:43)
[2019-07-30] MEDS: PANTOPRAZOLE SODIUM 40 MG VIAL IVPUSH SCH (09:28)
[2019-07-30] MEDS: COLLAGENASE CLOSTRIDIUM HIST. 30 GRAMS TUBE TP SCH (09:28)
[2019-07-30] MEDS: QUINAPRIL HCL 40 MG TABLET (FP) PO SCH (09:28)
[2019-07-30 09:55] LABS: ALBUMIN 2.1 g/dl (3.4-5.0); BILIRUBIN,TOTAL 0.6 mg/dL (0.2-1); BLOOD UREA NITROGEN 18.2 mg/dL (7-18); CALCIUM 8.5 mg/dL (8.5-10.1); CREATININE 0.9 mg/dL (0.55-1.3); POTASSIUM 4.4 mmol/L (3.5-5.1)
[2019-07-30] MEDS ORDERED: D5-1/2NS+10 MEQ KCL - 10 MEQ/1,000 ML INFUS.BAG IV SCH (13:45)
--- NOTE | 2019-07-30 14:11 | PN ---
Progress Note, Physician Chief Complaint: Patient remained at her baseline no fever no chills - Current Medication List Current Medications: Active Medications Acetaminophen (Tylenol -) 650 mg PO Q6H PRN PRN Reason: Fever Or Pain Last Admin: 07/28/19 22:33 Dose: 650 mg Amoxicillin/Clavulanate Potassium (Augmentin - 875mg Tablet) 1 tab PO BID@0800, 1730 [facility] Collagenase (Santyl -) 1 applic TP DAILY [facility]; Protocol Last Admin: 07/30/19 09:28 Dose: 1 applic Docusate Sodium (Colace -) 100 mg PO BID PRN PRN Reason: CONSTIPATION Potassium Chloride/Dextrose/Sod Cl (D5-1/2ns+10 Meq Kcl -) 1,000 mls @ 75 mls/ hr IV ASDIR [facility] Insulin Aspart (Novolog Vial Sliding Scale -) 1 vial SQ ACHS [facility]; Protocol Last Admin: 07/30/19 13:15 Dose: Not Given Lactulose (Cephulac (Oral Use)) 20 gm PO Q8H PRN PRN Reason: CONSTIPATION Last Admin: 07/23/19 23:04 Dose: 20 gm Metoprolol Tartrate (Lopressor -) 12.5 mg PO BID [facility] Last Admin: 07/30/19 09:25 Dose: 12.5 mg Pantoprazole Sodium (Protonix Iv) 40 mg IVPUSH DAILY [facility] Last Admin: 07/30/19 09:28 Dose: 40 mg Quinapril HCl (Accupril -) 40 mg PO DAILY [facility] Last Admin: 07/30/19 09:28 Dose: 40 mg Senna (Senna -) 1 tab PO HS [facility] Last Admin: 07/29/19 22:52 Dose: 1 tab - Objective Vital Signs: Vital Signs Temperature 98 F 07/29/19 22:00 Pulse Rate 90 07/29/19 22:00 Respiratory Rate 22 H 07/29/19 22:00 Blood Pressure 121/61 07/29/19 22:00 O2 Sat by Pulse Oximetry (%) 98 07/29/19 21:00 General: Elderly woman, comfortable, not in distress HEENT; mucous membranes moist, no anemia, no jaundice, PERRLA, no nystagmus Neck: No JVD, supple, no bruit, thyroid palpably normal, normal carotid pulsations. Chest: Nontender, bilateral basal rales. CVS: S1-S2 regular/irregular no murmur/gallop/rub Abdomen: bright red blood in the rectum, no active bleeding, nondistended, soft , bowel sounds present. Extremities: Stage III sacral decubitus, No cough tenderness, pulses present FRUIT GROWER: Nonverbal, oriented to self Labs: CBC, BMP 07/30/19 08:50 07/30/19 08:50 INR, PTT INR 1.17 (0.83-1.09) H 07/21/19 09:00 CBC,CMP WBC 7.5 K/mm3 (4.0-10.0) 07/30/19 08:50 RBC 2.48 M/mm3 (3.60-5.2) L 07/30/19 08:50 Hgb 7.6 GM/dL (10.7-15.3) L 07/30/19 08:50 Hct 22.3 % (32.4-45.2) L 07/30/19 08:50 MCV 90.2 fl (80-96) 07/30/19 08:50 MCH 30.6 pg (25.7-33.7) 07/30/19 08:50 MCHC 33.9 g/dl (32.0-36.0) 07/30/19 08:50 RDW 15.6 % (11.6-15.6) 07/30/19 08:50 Plt Count 376 K/MM3 (134-434) 07/30/19 08:50 MPV 6.3 fl (7.5-11.1) L 07/30/19 08:50 Absolute Neuts (auto) 5.0 K/mm3 (1.5-8.0) 07/30/19 08:50 Neutrophils % 67.0 % (42.8-82.8) 07/30/19 08:50 Neutrophils % (Manual) 64.3 % (42.8-82.8) 07/29/19 07:45 Band Neutrophils % 4.0 % 07/29/19 07:45 Lymphocytes % 23.5 % (8-40) D 07/30/19 08:50 Lymphocytes % (Manual) 15.8 % (8-40) 07/29/19 07:45 Monocytes % 7.9 % (3.8-10.2) 07/30/19 08:50 Monocytes % (Manual) 5 % (3.8-10.2) D 07/29/19 07:45 Eosinophils % 1.2 % (0-4.5) 07/30/19 08:50 Eosinophils % (Manual) 0.0 % (0-4.5) D 07/29/19 07:45 Basophils % 0.4 % (0-2.0) 07/30/19 08:50 Basophils % (Manual) 2.0 % (0-2.0) D 07/29/19 07:45 Myelocytes % (Man) 2 % (0-2) 07/29/19 07:45 Promyelocytes % (Man) 2 % (0-2) D 07/29/19 07:45 Blast Cells % (Manual) 0 % (0-0) 07/29/19 07:45 Nucleated RBC % 0 % (0-0) 07/30/19 08:50 Metamyelocytes 1 % (0-2) D 07/29/19 07:45 Hypochromia 0 07/29/19 07:45 Platelet Estimate Normal 07/29/19 07:45 Platelet Comment Present 07/29/19 07:45 Polychromasia 0 07/29/19 07:45 Poikilocytosis 1+ 07/29/19 07:45 Anisocytosis 1+ 07/29/19 07:45 Microcytosis 1+ 07/29/19 07:45 Macrocytosis 0 07/29/19 07:45 Spherocytes 1+ 07/28/19 07:56 Target Cells 1+ 07/25/19 07:25 Tear Drop Cells 1+ 07/25/19 07:25 Ovalocytes 1+ 07/29/19 07:45 Stomatocytes 1+ 07/25/19 07:25 Anai Cells 1+ 07/29/19 07:45 Acanthocytes (Spur) 1+ 07/25/19 07:25 Sodium 137 mmol/L (136-145) 07/30/19 08:50 Potassium 4.4 mmol/L (3.5-5.1) 07/30/19 08:50 Chloride 104 mmol/L (98-107) 07/30/19 08:50 Carbon Dioxide 26 mmol/L (21-32) 07/30/19 08:50 Anion Gap 7 MMOL/L (8-16) L 07/30/19 08:50 BUN 18.2 mg/dL (7-18) H 07/30/19 08:50 Creatinine 0.9 mg/dL (0.55-1.3) 07/30/19 08:50 Est GFR (CKD-EPI)AfAm 65.70 07/30/19 08:50 Est GFR (CKD-EPI)NonAf 56.69 07/30/19 08:50 POC Glucometer 115 UNITS (80-120) 07/30/19 13:11 Random Glucose 100 mg/dL (74-106) 07/30/19 08:50 Calcium 8.5 mg/dL (8.5-10.1) 07/30/19 08:50 Phosphorus 3.1 mg/dL (2.5-4.9) 07/23/19 07:48 Magnesium 1.7 mg/dL (1.8-2.4) L 07/26/19 07:50 Iron 30 ug/dL (50-175) L 07/21/19 09:00 TIBC 385 ug/dL (250-450) 07/21/19 09:00 Iron Saturation 7 % (17.5-39) L 07/21/19 09:00 Unsaturated IBC 355 ug/dL (200-275) H 07/21/19 09:00 Total Bilirubin 0.6 mg/dL (0.2-1) 07/30/19 08:50 AST 432 U/L (15-37) H 07/30/19 08:50 ALT 195 U/L (13-61) H 07/30/19 08:50 Alkaline Phosphatase 241 U/L (45-117) H 07/30/19 08:50 Creatine Kinase 88 U/L (26-192) 07/21/19 03:35 Troponin I < 0.02 ng/ml (0.00-0.05) 07/21/19 03:35 C-Reactive Protein 1.2 MG/DL (0.00-0.3) H 07/23/19 07:48 Total Protein 6.0 g/dl (6.4-8.2) L 07/30/19 08:50 Albumin 2.1 g/dl (3.4-5.0) L 07/30/19 08:50 Problem List - Problems (1) SD (blood per rectum) Assessment/Plan: No active bleeding since hospitalization H&H is stable we will continue bowel regimen. Evaluation by GI no plan for colonoscopy.. Code(s): K62.5 - HEMORRHAGE OF ANUS AND RECTUM (2) Hypertension Assessment/Plan: Well-controlled will continue oral blood pressure medication if indicated. Code(s): I10 - ESSENTIAL (PRIMARY) HYPERTENSION (3) Dementia Assessment/Plan: Chronic at baseline nonverbal Code(s): F03.90 - UNSPECIFIED DEMENTIA WITHOUT BEHAVIORAL DISTURBANCE (4) Hypercholesterolemia Assessment/Plan: Continue statin once able to tolerate p.o. Code(s): E78.00 - PURE HYPERCHOLESTEROLEMIA, UNSPECIFIED (5) DVT of upper extremity (deep vein thrombosis) Assessment/Plan: History of DVT right upper extremity not on any anticoagulation due to GI bleed. Code(s): I82.629 - ACUTE EMBOLISM AND THROMBOSIS OF DEEP VN UNSP UP EXTREM (6) Hypothyroid Assessment/Plan: Continue levothyroxine will start tolerating p.o. Code(s): E03.9 - HYPOTHYROIDISM, UNSPECIFIED (7) Type 2 diabetes mellitus Assessment/Plan: Patient is n.p.o. continue Accu-Chek every 6 hourly and fingersticks start on D5 half-normal saline once fingersticks drop less than 150 Code(s): E11.9 - TYPE 2 DIABETES MELLITUS WITHOUT COMPLICATIONS (8) Sacral decubitus ulcer, stage III Assessment/Plan: Patient is a stage III sacral decubitus needs wound care ulcer base looks healthy. Code(s): L89.153 - PRESSURE ULCER OF SACRAL REGION, STAGE 3 (9) Anemia Assessment/Plan: Chronic anemia presents with lower GI bleed, H&H remained stable on IV and multivitamins Code(s): D64.9 - ANEMIA, UNSPECIFIED (10) Aspiration pneumonia Assessment/Plan: Patient passes speech and swallow, but CT scan findings are very consistent with aspiration pneumonia completed 3 days of IV antibiotic as per ID recommendation we will switch to p.o. Augmentin. Code(s): J69.0 - PNEUMONITIS DUE TO INHALATION OF FOOD AND VOMIT (11) UTI (urinary tract infection) Assessment/Plan: Urine culture growing multiple organisms including Klebsiella follow-up with ID for appropriate antibiotic Code(s): N39.0 - URINARY TRACT INFECTION, SITE NOT SPECIFIED (12) Transaminitis Assessment/Plan: Today's labs shows elevated SGOT SGPT and alkaline phosphatase, can be drug- induced follow-up hepatobiliary ultrasound, JENNIFER Rivas on p.o. Augmentin, IV hydration, follow-up ultrasound results GI consult. Problems reviewed: Yes Code(s): R74.0 - NONSPEC ELEV OF LEVELS OF TRANSAMNS & LACTIC ACID DEHYDRGNSE
--- NOTE | 2019-07-30 15:37 | PN ---
Progress Note (short form) - Note Progress Note: MBS noted with silent aspiration with cup-intermittent with nectar and thin lequids awake alert confused no distress Vital Signs Period Temp Pulse Resp BP Sys/Tolentino Pulse Ox Last 24 Hr 98 F-99.8 F 83-92 20-22 111-146/45-89 98 cor-rrr lungs decreased bs at bases abd soft,nt ext no edema CBC, BMP 07/30/19 08:50 07/30/19 08:50 Laboratory Tests 07/30/19 08:50 Total Bilirubin 0.6 AST 432 H ALT 195 H Alkaline Phosphatase 241 H Microbiology 07/27/19 01:45 Urine - Urine - Catheterized Urine Culture - Final Klebsiella Pneumoniae Enterobacter Aerogenes Group D Strep Or Entero Coccus 07/26/19 21:20 Blood - Peripheral Venous Blood Culture - Preliminary NO GROWTH OBTAINED AFTER 72 HOURS, INCUBATION TO CONTINUE FOR 2 DAYS. 07/24/19 19:16 Blood - Peripheral Venous Blood Culture - Final NO GROWTH AFTER 5 DAYS INCUBATION 07/24/19 19:10 Blood - Peripheral Venous Blood Culture - Final NO GROWTH AFTER 5 DAYS INCUBATION 07/26/19 20:35 Blood - Peripheral Venous Blood Culture - Final Staphylococcus Epidermidis 07/28/19 14:45 Urine For Antigen Detection Legionella Antigen - Final 07/28/19 14:45 Urine For Antigen Detection Streptococcus pneumoniae Antigen (M - Final 07/25/19 14:00 Urine - Urine Clean Catch Urine Culture - Final NO GROWTH OBTAINED chest ct- patchy bilateral infiltrates a/p bilateral infiltrates- most likley due to aspiration (noted on MBS)-zosyn day #4 - d/w daughter last night, explained that with the silent aspiration she is always at risk of aspiration and that most of the scattered infiltrates are due to the aspiration and that this process will most likely continue to follow instructions per speech pathology abnormal LFTS- new- repeat, sonogram- cannot see GB on chest ct-spoke with radiology zosyn is not a common cause of abnl lfts, ?protonix will switch to ertapenem for now aspiration precautions dementia rectal bleeding resolved will d/w hospitalist
[2019-07-30] MEDS ORDERED: AMOX TR/POT CLAV 875MG/125MG TABLETS (FP) PO SCH (17:30)
[2019-07-30] MEDS: ERTAPENEM SODIUM 1 GM in SODIUM CHLORIDE 50 ML IVPB SCH (17:34)
[2019-07-30 17:47] LABS: ALBUMIN 2.3 g/dl (3.4-5.0); BILIRUBIN,DIRECT 0.2 mg/dL (0.0-0.2); BILIRUBIN,TOTAL 0.3 mg/dL (0.2-1); TOT PROT 6.5 g/dl (6.4-8.2)
[2019-07-30 21:47] LABS: INR 1.08 (0.83-1.09); PROTHROMBIN TIME (PATIENT) 12.7 SEC (9.7-13.0)
[2019-07-30] MEDS: SENNOSIDES 8.6MG TABLET (FP) PO SCH (23:43)
[2019-07-31] MEDS: INSULIN SLIDING SCALE (NOVOLOG) 1 VIAL SQ SCH ×4 (06:34→21:13)
[2019-07-31 09:20] LABS: BASO % 0.5 % (0-2.0); EOS % 1.2 % (0-4.5); HEMATOCRIT 25.1 % (32.4-45.2); HEMOGLOBIN 8.5 GM/dL (10.7-15.3); LYMPH % 19.6 % (8-40); MCH 30.4 pg (25.7-33.7); MCHC 33.7 g/dl (32.0-36.0); MEAN CELL VOLUME 90.4 fl (80-96); MEAN PLT VOLUME 6.7 fl (7.5-11.1); MONO % 11.2 % (3.8-10.2); NEUT % 67.5 % (42.8-82.8); PLATELET COUNT 419 K/MM3 (134-434); RBC 2.78 M/mm3 (3.60-5.2); RDW 15.5 % (11.6-15.6); WHITE BLOOD COUNT 7.5 K/mm3 (4.0-10.0)
[2019-07-31 09:46] LABS: ALBUMIN 2.3 g/dl (3.4-5.0); BILIRUBIN,TOTAL 0.3 mg/dL (0.2-1); BLOOD UREA NITROGEN 16.8 mg/dL (7-18); CALCIUM 8.9 mg/dL (8.5-10.1); CREATININE 0.9 mg/dL (0.55-1.3); POTASSIUM 4.5 mmol/L (3.5-5.1); TOT PROT 6.4 g/dl (6.4-8.2)
[2019-07-31] MEDS ORDERED: PT OWN MED DRAWER 7, Y5N ONE (10:36)
[2019-07-31] MEDS: PANTOPRAZOLE SODIUM 40 MG VIAL IVPUSH SCH (10:46)
[2019-07-31] MEDS: ERTAPENEM SODIUM 1 GM in SODIUM CHLORIDE 50 ML IVPB SCH (10:46)
[2019-07-31] MEDS: METOPROLOL TARTRATE 25 MG TABLET (FP) PO SCH ×2 (10:46→21:14)
[2019-07-31] MEDS: QUINAPRIL HCL 40 MG TABLET (FP) PO SCH (10:47)
[2019-07-31] MEDS: COLLAGENASE CLOSTRIDIUM HIST. 30 GRAMS TUBE TP SCH (10:47)
--- NOTE | 2019-07-31 13:11 | PN ---
Progress Note (short form) - Note Progress Note: No new changes comfortable lying in the bed no distress no fever no chills. Vital Signs Period Temp Pulse Resp BP Sys/Tolentino Pulse Ox Last 24 Hr 98.2 F-99.4 F 84-98 18-22 112-157/69-81 97 Review of system Head no headache no dizziness Ear nose throat no epistaxis Cardiovascular no chest pain Neuro no history of stroke Dermatology no history of stroke Rest of review of systems are negative Physical examination General: Elderly woman, comfortable, not in distress HEENT; mucous membranes moist, no anemia, no jaundice, PERRLA, no nystagmus Neck: No JVD, supple, no bruit, thyroid palpably normal, normal carotid pulsations. Chest: Nontender, bilateral basal rales. CVS: S1-S2 regular/irregular no murmur/gallop/rub Abdomen: bright red blood in the rectum, no active bleeding, nondistended, soft , bowel sounds present. Extremities: Stage III sacral decubitus, No cough tenderness, pulses present HAND GRINDER: Nonverbal, oriented to self Laboratory Results - last 24 hr 07/30/19 07/30/19 07/30/19 13:11 16:15 16:15 WBC RBC Hgb Hct MCV MCH MCHC RDW Plt Count MPV Absolute Neuts (auto) Neutrophils % Lymphocytes % Monocytes % Eosinophils % Basophils % Nucleated RBC % PT with INR 12.70 INR 1.08 Sodium Potassium Chloride Carbon Dioxide Anion Gap BUN Creatinine Est GFR (CKD-EPI)AfAm Est GFR (CKD-EPI)NonAf POC Glucometer 115 Random Glucose Calcium Total Bilirubin 0.3 Direct Bilirubin 0.2 AST 332 H ALT 211 H Alkaline Phosphatase 282 H Total Protein 6.5 Albumin 2.3 L 07/30/19 07/30/19 07/31/19 17:26 23:46 06:32 WBC RBC Hgb Hct MCV MCH MCHC RDW Plt Count MPV Absolute Neuts (auto) Neutrophils % Lymphocytes % Monocytes % Eosinophils % Basophils % Nucleated RBC % PT with INR INR Sodium Potassium Chloride Carbon Dioxide Anion Gap BUN Creatinine Est GFR (CKD-EPI)AfAm Est GFR (CKD-EPI)NonAf POC Glucometer 109 92 106 Random Glucose Calcium Total Bilirubin Direct Bilirubin AST ALT Alkaline Phosphatase Total Protein Albumin 07/31/19 07/31/19 07/31/19 08:10 08:10 12:47 WBC 7.5 RBC 2.78 L Hgb 8.5 L Hct 25.1 L MCV 90.4 MCH 30.4 MCHC 33.7 RDW 15.5 Plt Count 419 MPV 6.7 L Absolute Neuts (auto) 5.0 Neutrophils % 67.5 Lymphocytes % 19.6 Monocytes % 11.2 H Eosinophils % 1.2 Basophils % 0.5 Nucleated RBC % 0 PT with INR INR Sodium 137 Potassium 4.5 Chloride 103 Carbon Dioxide 27 Anion Gap 7 L BUN 16.8 Creatinine 0.9 Est GFR (CKD-EPI)AfAm 65.70 Est GFR (CKD-EPI)NonAf 56.69 POC Glucometer 160 Random Glucose 98 Calcium 8.9 Total Bilirubin 0.3 Direct Bilirubin AST 165 H ALT 143 H Alkaline Phosphatase 240 H Total Protein 6.4 Albumin 2.3 L Assessment and plan Aspiration pneumonia Patient is developing because of her chronic dysphagia problem she is on IV antibiotics changed by ID yesterday continue same treatment this time Rectal bleeding Stable hemoglobin is stable and she has no blood in the hospital GI seen and is had no colonoscopy. Hypertension stable same medication Dementia chronic at baseline same treatment Hyperlipidemia stable continue same medication Hypothyroidism stable continue same medication Diabetes stable continue medication and fingerstick Sacral ulcer stable continue wound care Visit type - Emergency Visit Emergency Visit: Yes ED Registration Date: 07/21/19 Care time: The patient presented to the Emergency Department on the above date and was hospitalized for further evaluation of their emergent condition. - New Patient This patient is new to me today: Yes Date on this admission: 07/31/19 - Critical Care Critical Care patient: No - Discharge Referral Referred to [facility] Med P.C.: No
[2019-07-31] MEDS: SENNOSIDES 8.6MG TABLET (FP) PO SCH (21:14)
[2019-08-01] MEDS: INSULIN SLIDING SCALE (NOVOLOG) 1 VIAL SQ SCH ×4 (06:34→21:22)
[2019-08-01] MEDS ORDERED: PT OWN MED DRAWER 7, Y5N ONE (09:17)
[2019-08-01] MEDS: METOPROLOL TARTRATE 25 MG TABLET (FP) PO SCH ×2 (10:13→22:23)
[2019-08-01] MEDS: ERTAPENEM SODIUM 1 GM in SODIUM CHLORIDE 50 ML IVPB SCH (10:14)
[2019-08-01] MEDS: QUINAPRIL HCL 40 MG TABLET (FP) PO SCH (10:14)
[2019-08-01] MEDS: PANTOPRAZOLE SODIUM 40 MG VIAL IVPUSH SCH (10:15)
[2019-08-01] MEDS: COLLAGENASE CLOSTRIDIUM HIST. 30 GRAMS TUBE TP SCH (10:22)
--- NOTE | 2019-08-01 11:01 | PN ---
Progress Note (short form) - Note Progress Note: No new changes comfortable lying in the bed no distress no fever no chills. Review of system no Change Physical examination General: Elderly woman, comfortable, not in distress HEENT; mucous membranes moist, no anemia, no jaundice, PERRLA, no nystagmus Neck: No JVD, supple, no bruit, thyroid palpably normal, normal carotid pulsations. Chest: Nontender, bilateral basal rales. CVS: S1-S2 regular/irregular no murmur/gallop/rub Abdomen: bright red blood in the rectum, no active bleeding, nondistended, soft , bowel sounds present. Extremities: Stage III sacral decubitus, No cough tenderness, pulses present BICYCLE FITTER: Nonverbal, oriented to self Laboratory Results - last 24 hr 07/30/19 07/30/19 07/30/19 13:11 16:15 16:15 WBC RBC Hgb Hct MCV MCH MCHC RDW Plt Count MPV Absolute Neuts (auto) Neutrophils % Lymphocytes % Monocytes % Eosinophils % Basophils % Nucleated RBC % PT with INR 12.70 INR 1.08 Sodium Potassium Chloride Carbon Dioxide Anion Gap BUN Creatinine Est GFR (CKD-EPI)AfAm Est GFR (CKD-EPI)NonAf POC Glucometer 115 Random Glucose Calcium Total Bilirubin 0.3 Direct Bilirubin 0.2 AST 332 H ALT 211 H Alkaline Phosphatase 282 H Total Protein 6.5 Albumin 2.3 L 07/30/19 07/30/19 07/31/19 17:26 23:46 06:32 WBC RBC Hgb Hct MCV MCH MCHC RDW Plt Count MPV Absolute Neuts (auto) Neutrophils % Lymphocytes % Monocytes % Eosinophils % Basophils % Nucleated RBC % PT with INR INR Sodium Potassium Chloride Carbon Dioxide Anion Gap BUN Creatinine Est GFR (CKD-EPI)AfAm Est GFR (CKD-EPI)NonAf POC Glucometer 109 92 106 Random Glucose Calcium Total Bilirubin Direct Bilirubin AST ALT Alkaline Phosphatase Total Protein Albumin 07/31/19 07/31/19 07/31/19 08:10 08:10 12:47 WBC 7.5 RBC 2.78 L Hgb 8.5 L Hct 25.1 L MCV 90.4 MCH 30.4 MCHC 33.7 RDW 15.5 Plt Count 419 MPV 6.7 L Absolute Neuts (auto) 5.0 Neutrophils % 67.5 Lymphocytes % 19.6 Monocytes % 11.2 H Eosinophils % 1.2 Basophils % 0.5 Nucleated RBC % 0 PT with INR INR Sodium 137 Potassium 4.5 Chloride 103 Carbon Dioxide 27 Anion Gap 7 L BUN 16.8 Creatinine 0.9 Est GFR (CKD-EPI)AfAm 65.70 Est GFR (CKD-EPI)NonAf 56.69 POC Glucometer 160 Random Glucose 98 Calcium 8.9 Total Bilirubin 0.3 Direct Bilirubin AST 165 H ALT 143 H Alkaline Phosphatase 240 H Total Protein 6.4 Albumin 2.3 L Assessment and plan Aspiration pneumonia Patient is developing because of her chronic dysphagia problem she is on IV antibiotics changed by ID yesterday continue same treatment this time Acute cholecystitis on ultrasound. Discussed with the family in detail about the disease process will call surgical evaluation order is already put in continue IV antibiotics. Order labs for tomorrow morning CBC and complete metabolic profile Rectal bleeding Stable hemoglobin is stable and she has no blood in the hospital GI seen and is had no colonoscopy. Hypertension stable same medication Dementia chronic at baseline same treatment Hyperlipidemia stable continue same medication Hypothyroidism stable continue same medication Diabetes stable continue medication and fingerstick Sacral ulcer stable continue wound care Visit type - Emergency Visit Emergency Visit: Yes ED Registration Date: 07/21/19 Care time: The patient presented to the Emergency Department on the above date and was hospitalized for further evaluation of their emergent condition. - New Patient This patient is new to me today: No - Critical Care Critical Care patient: No - Discharge Referral Referred to [facility] Med P.C.: No
--- NOTE | 2019-08-01 11:51 | PN ---
Progress Note (short form) - Note Progress Note: surgery 89f non verbal, dementia, psych, acute dvt, failed anticoagulation for gi bleed , sacral decubiti, now with low grade fever, mildly elevated lfts, and u/s showing possible cholecystitis. recommend HIDA. if positive would consider percutaneous drainage as pt is not a candidate for surgery.
--- NOTE | 2019-08-01 12:50 | PN.GI ---
GI Progress Note Subjective: For Dr. Greenwood: Called by son who was attempting to reach Dr. Greenwood. Concerned that he was told Ms. Miguel may need surgery for her gallbladder Had to review chart as she has not been actively followed by GI: Transaminases / ALP arjun 07/30 Abd US revealed gallstones and trace pericholecystic fluid - Objective Vital Signs: Vital Signs Temperature 98.4 F 08/01/19 10:00 Pulse Rate 108 H 08/01/19 10:00 Respiratory Rate 18 08/01/19 10:00 Blood Pressure 147/80 08/01/19 10:00 O2 Sat by Pulse Oximetry (%) 98 07/31/19 21:00 Constitutional: Calm Cardiovascular: Yes: Regular Rate and Rhythm, Murmur Respiratory: Yes: Diminished (at bases bilaterally) Gastrointestinal Inspection: No: Distention ...Auscultate: Yes: Normoactive Bowel Sounds ...Palpate: No: Tenderness (No grimacing upon palpation) ...Percussion: No: Tympanitic Edema: No Neurological: Yes: Lethargy Labs: CBC, BMP 07/31/19 08:10 07/31/19 08:10 INR, PTT INR 1.08 (0.83-1.09) 07/30/19 16:15 Problem List - Problems (1) Abnormal liver function tests Assessment/Plan: In review of the chart, Patient evaluated by surgeon Dr. Lind. Advised a HIDA scan and percutaneous cholecystostomy if the study supports acute cholecystitis, as he felt Ms. Miguel is not a surgical candidate. Monitor LFTS (downward trend) For HIDA scan On Abx per ID Dr. Greenwood resumes coverage 2/3 Code(s): R94.5 - ABNORMAL RESULTS OF LIVER FUNCTION STUDIES
[2019-08-01] MEDS: ACETAMINOPHEN 325 MG TABLET (FP) PO PRN (21:23)
[2019-08-01] MEDS: SENNOSIDES 8.6MG TABLET (FP) PO SCH (21:23)
[2019-08-02] MEDS: INSULIN SLIDING SCALE (NOVOLOG) 1 VIAL SQ SCH ×4 (06:47→21:40)
[2019-08-02 11:25] LABS: BASO % 0.6 % (0-2.0); EOS % 0.8 % (0-4.5); HEMATOCRIT 25.9 % (32.4-45.2); HEMOGLOBIN 8.6 GM/dL (10.7-15.3); LYMPH % 21.3 % (8-40); MCH 30.4 pg (25.7-33.7); MCHC 33.3 g/dl (32.0-36.0); MEAN CELL VOLUME 91.2 fl (80-96); MEAN PLT VOLUME 6.9 fl (7.5-11.1); MONO % 9.7 % (3.8-10.2); NEUT % 67.6 % (42.8-82.8); RBC 2.84 M/mm3 (3.60-5.2); RDW 16.3 % (11.6-15.6); WHITE BLOOD COUNT 9.8 K/mm3 (4.0-10.0)
[2019-08-02] MEDS: PANTOPRAZOLE SODIUM 40 MG VIAL IVPUSH SCH (13:04)
[2019-08-02] MEDS: ERTAPENEM SODIUM 1 GM in SODIUM CHLORIDE 50 ML IVPB SCH (13:04)
[2019-08-02] MEDS: QUINAPRIL HCL 40 MG TABLET (FP) PO SCH (13:05)
[2019-08-02] MEDS: METOPROLOL TARTRATE 25 MG TABLET (FP) PO SCH ×2 (13:05→21:41)
[2019-08-02] MEDS: COLLAGENASE CLOSTRIDIUM HIST. 30 GRAMS TUBE TP SCH (13:06)
--- NOTE | 2019-08-02 14:22 | PN ---
Physical Exam: SUBJECTIVE: Patient seen and examined. No events overnight. OBJECTIVE: Vital Signs Period Temp Pulse Resp BP Sys/Tolentino Pulse Ox Last 24 Hr 97.5 F-100.9 F 87-96 18-26 109-159/59-82 99 GENERAL: in NAD, nonverbal, looks comfortable EYES: PERRL, sclera anicteric ENT: moist mucous membranes. NECK: supple. LUNGS: decreased breath sounds, no accessory muscle use. HEART: RRR ABDOMEN: Soft, nontender, nondistended, normoactive bowel sounds EXTREMITIES: 2+ pulses, no edema. Laboratory Results - last 24 hr 08/01/19 08/01/19 08/02/19 17:44 21:06 06:46 WBC RBC Hgb Hct MCV MCH MCHC RDW Plt Count MPV Absolute Neuts (auto) Neutrophils % Lymphocytes % Monocytes % Eosinophils % Basophils % Nucleated RBC % POC Glucometer 145 127 110 08/02/19 08/02/19 10:00 13:03 WBC 9.8 RBC 2.84 L Hgb 8.6 L Hct 25.9 L MCV 91.2 MCH 30.4 MCHC 33.3 RDW 16.3 H Plt Count 472 H MPV 6.9 L Absolute Neuts (auto) 6.6 Neutrophils % 67.6 Lymphocytes % 21.3 Monocytes % 9.7 Eosinophils % 0.8 Basophils % 0.6 Nucleated RBC % 0 POC Glucometer 108 Active Medications Generic Name Dose Route Start Last Admin Trade Name Freq PRN Reason Stop Dose Admin Acetaminophen 650 mg 07/26/19 18:12 08/01/19 21:23 Tylenol - PO 650 mg Q6H PRN Administration Fever Or Pain Collagenase 1 applic 07/25/19 12:00 08/02/19 13:06 Santyl - TP 1 applic DAILY SILVINO Administration Protocol Docusate Sodium 100 mg 07/23/19 11:39 07/31/19 10:46 Colace - PO 100 mg BID PRN Administration CONSTIPATION Ertapenem 1 gm/ Sodium 50 mls @ 100 mls/hr 07/30/19 16:00 08/02/19 13:04 Chloride IVPB 100 mls/hr DAILY SILVINO Administration Insulin Aspart 1 vial 07/21/19 07:00 08/02/19 13:04 Novolog Vial Sliding Scale - SQ Not Given ACHS SILVINO Protocol Lactulose 20 gm 07/23/19 15:08 07/23/19 23:04 Cephulac (Oral Use) PO 20 gm Q8H PRN Administration CONSTIPATION Metoprolol Tartrate 12.5 mg 07/27/19 10:00 08/02/19 13:05 Lopressor - PO 12.5 mg BID SILVINO Administration Pantoprazole Sodium 40 mg 07/29/19 10:00 08/02/19 13:04 Protonix Iv IVPUSH 40 mg DAILY SILVINO Administration Quinapril HCl 40 mg 07/23/19 10:00 08/02/19 13:05 Accupril - PO 40 mg DAILY SILVINO Administration Senna 1 tab 07/23/19 22:00 08/01/19 21:23 Senna - PO 1 tab HS SILVINO Administration ASSESSMENT/PLAN: Impression: Multilobar pneumonia possibility of recurrent aspiration ASSESSMENT/PLAN: #Multilobal PNA -likely aspiration -urine cultures: Klebsiella, lactose fermenting gram neg -Febrile last night 10pm -Switched to Ertapenem now Day 3 -fu ID reccs. -currently afebrile -monitor vital signs -aspiraton precautions #R/O Cholecystitis -Abd US revealed gallstones and trace pericholecystic fluid -for HIDA - Patient evaluated by surgeon Dr. Lind. Advised a HIDA scan and percutaneous cholecystostomy if the study supports acute cholecystitis, as he felt Ms. Miguel is not a surgical candidate. # Rectal bleeding R/O Lower GI Bleed -no further episodes of bleeding -Bleed likely due to multiple etiologies, prolapse, friability, asa use. -Per GI Rectal bleeding due to hemorrhoids. Bleeding from diverticulosis, vascular ectasias and ischemic colitis could be hourly and cause a drop in Hb. -Hgb stable -monitor H&H -cont Pantoprazole 40mg -colonoscopy discussed with family by GI, currently declining. #Iron def Anemia -likely due to chronic bleeding likely from multiple etiologies that include residual rectal prolapse repair site friablity, suspected small bowel vascular ectasias and possible large hiatal hernia [place] ulcers per GI -s/p 2 Units PRBC last admission. (07/04 and 07/08). - s/p 3x venofer this admission. 1x last admission. -Pantoprazole daily -monitor h/h #Sacral decubitus ulcer stage 2 -wound care #Right arm DVT -no heparin at this time due to possible bleed -was found last admission #Type 2 DM #HTN #HLD #History of TIA-aspirin held #Dvt ppx -no hep at this time Visit type - Emergency Visit Emergency Visit: Yes ED Registration Date: 07/21/19 Care time: The patient presented to the Emergency Department on the above date and was hospitalized for further evaluation of their emergent condition. - New Patient This patient is new to me today: Yes Date on this admission: 08/02/19 - Critical Care Critical Care patient: No ATTENDING PHYSICIAN STATEMENT I saw and evaluated the patient. I reviewed the resident's note and discussed the case with the resident. I agree with the resident's findings and plan as documented. SUBJECTIVE: OBJECTIVE: ASSESSMENT AND PLAN:
[2019-08-02 14:39] LABS: ALBUMIN 2.4 g/dl (3.4-5.0); BILIRUBIN,TOTAL 0.2 mg/dL (0.2-1); BLOOD UREA NITROGEN 24.2 mg/dL (7-18); CALCIUM 8.7 mg/dL (8.5-10.1); CREATININE 1.1 mg/dL (0.55-1.3); POTASSIUM 4.4 mmol/L (3.5-5.1); TOT PROT 6.9 g/dl (6.4-8.2)
[2019-08-02] MEDS ORDERED: SODIUM CHLORIDE 0.9% 500 ML INFUS.BAG IV ONE (14:45)
[2019-08-02 14:46] LABS: PLATELET COUNT 472 K/MM3 (134-434)
--- NOTE | 2019-08-02 15:08 | CONS ---
DATE OF CONSULTATION: 08/02/2019 REASON FOR CONSULTATION: Acute cholecystitis, cholelithiasis. This is an inpatient consultation at the request of the medical team. BRIEF HISTORY: This is an 89-year-old female with multiple medical problems including dementia, stroke, hypertension, hyperlipidemia, bronchitis, sleep apnea, long-term bound, diverticulosis, gastroesophageal reflux disease, hiatal hernia, rectal prolapse, cholelithiasis, schizophrenia, chondrocalcinosis, diabetes, and hypothyroid who was admitted to [facility] for treatment of an acute DVT in her upper arm. She was anticoagulated. Developed a GI bleed and the anticoagulation was stopped. At some point, she was noted to have a mildly elevated liver function test. Had an ultrasound done, which suggested the possibility of acute cholecystitis. Request was made for cholecystectomy for this possible acute cholecystitis. PAST MEDICAL HISTORY: As stated in HPI. PAST SURGICAL HISTORY: Gleaned from the chart. She has a small scar above her pubic bone. The chart mentions that she has had cataracts, rectal prolapse repair 3 times, and a tonsillectomy. HOME MEDICATIONS: Have been reviewed. They include Synthroid, metoprolol, vitamin C, Namenda, Lipitor, metformin, Xanax. ALLERGIES: She has no known drug allergies. REVIEW OF SYSTEMS: Unobtainable. PHYSICAL EXAMINATION: General: This is a thin 89-year-old female in no distress. Vital Signs: She is afebrile with a maximum temperature of 100.9. HEENT: Her head is normocephalic. Her sclerae are anicteric. Neck: Supple. Chest: Clear. Abdomen: Soft. She has an umbilical hernia. She has a small scar above her pubic tubercle. She is nontender. She is nondistended. Extremities: Edema. On view of her laboratory, her bilirubin is normal. Her AST is 165, her ALT is 143, and her alkaline phosphatase is 240. Her white blood cell count is normal without a shift. Her urinalysis is suggestive of a urinary tract infection. On review of her imaging, she has an ultrasound, which shows multiple, tiny gallstones posteriorly with minimal thickening and trace pericholecystic fluid. At my request, a HIDA scan was ordered. The HIDA scan shows rapid filling of her gallbladder entirely at 20 minutes. ASSESSMENT: This is an 89-year-old female nonverbal not a candidate for surgery with gallstones. PLAN: HIDA scan rules out acute cholecystitis. At this point, not only is she not a candidate for surgery, but there is no indication for cholecystectomy. Recommend looking for other causes of the liver function tests and low-grade fever. DO ROSALINA IYER/[id number]
--- NOTE | 2019-08-02 16:19 | PN ---
Teaching Attending Note Name of Resident: Joanne Fields ATTENDING PHYSICIAN STATEMENT I saw and evaluated the patient. I reviewed the resident's note and discussed the case with the resident. I agree with the resident's findings and plan as documented. 89 F h/o HLD, DM, hypothyroidism, GERD, RUE DVT formerly on AC, Stage 3 sacral decubitus ulcer and dementia, non-verbal at baseline, transferred from [facility] for rectal bleeding. Patient admitted for aspiration PNA with prolonged abx course, complicated by rectal bleeding in which was attributed to hemorrhoids. H /H now stable. CT chest showing multilobar PNA, however clinically patient appears stable and as per daughter, slightly improved from prior. HIDA scan done for transaminitis today did not show gall bladder pathology. VS otherwise stable. GENERAL: in NAD, nonverbal, looks comfortable, NAD EYES: PERRL, sclera anicteric ENT: moist mucous membranes, neck supple, MMM LUNGS: poor inspiratory effort, no appreciable crackles or wheezing HEART: S1, S2+, RRR ABDOMEN: Soft, nontender, nondistended, normoactive bowel sounds, no squinting to deep palpation of abdomen EXTREMITIES: 2+ pulses, no edema. Vital Signs - 24 hr 08/01/19 08/01/19 08/01/19 18:00 21:00 22:00 Temperature 97.8 F 100.9 F H Pulse Rate 96 H 88 Respiratory 18 26 H Rate Blood Pressure 159/59 L 122/59 L O2 Sat by Pulse 99 Oximetry (%) 08/02/19 08/02/19 08/02/19 06:00 09:37 16:05 Temperature 97.5 F L 98.3 F 97.7 F Pulse Rate 87 87 90 Respiratory 20 18 18 Rate Blood Pressure 109/60 134/82 122/82 O2 Sat by Pulse Oximetry (%) Microbiology 07/26/19 21:20 Blood - Peripheral Venous Blood Culture - Final NO GROWTH AFTER 5 DAYS INCUBATION 07/27/19 01:45 Urine - Urine - Catheterized Urine Culture - Final Klebsiella Pneumoniae Enterobacter Aerogenes Group D Strep Or Entero Coccus 07/24/19 19:16 Blood - Peripheral Venous Blood Culture - Final NO GROWTH AFTER 5 DAYS INCUBATION 07/24/19 19:10 Blood - Peripheral Venous Blood Culture - Final NO GROWTH AFTER 5 DAYS INCUBATION 07/26/19 20:35 Blood - Peripheral Venous Blood Culture - Final Staphylococcus Epidermidis 07/28/19 14:45 Urine For Antigen Detection Legionella Antigen - Final 07/28/19 14:45 Urine For Antigen Detection Streptococcus pneumoniae Antigen (M - Final 07/25/19 14:00 Urine - Urine Clean Catch Urine Culture - Final NO GROWTH OBTAINED Laboratory Results - last 24 hr 08/01/19 08/01/19 08/02/19 17:44 21:06 06:46 WBC RBC Hgb Hct MCV MCH MCHC RDW Plt Count MPV Absolute Neuts (auto) Neutrophils % Lymphocytes % Monocytes % Eosinophils % Basophils % Nucleated RBC % Sodium Potassium Chloride Carbon Dioxide Anion Gap BUN Creatinine Est GFR (CKD-EPI)AfAm Est GFR (CKD-EPI)NonAf POC Glucometer 145 127 110 Random Glucose Calcium Total Bilirubin AST ALT Alkaline Phosphatase Total Protein Albumin 08/02/19 08/02/19 08/02/19 10:00 10:00 13:03 WBC 9.8 RBC 2.84 L Hgb 8.6 L Hct 25.9 L MCV 91.2 MCH 30.4 MCHC 33.3 RDW 16.3 H Plt Count 472 H MPV 6.9 L Absolute Neuts (auto) 6.6 Neutrophils % 67.6 Lymphocytes % 21.3 Monocytes % 9.7 Eosinophils % 0.8 Basophils % 0.6 Nucleated RBC % 0 Sodium 137 Potassium 4.4 Chloride 104 Carbon Dioxide 27 Anion Gap 7 L BUN 24.2 H Creatinine 1.1 Est GFR (CKD-EPI)AfAm 51.55 Est GFR (CKD-EPI)NonAf 44.48 POC Glucometer 108 Random Glucose 120 H Calcium 8.7 Total Bilirubin 0.2 AST 55 H ALT 69 H Alkaline Phosphatase 214 H Total Protein 6.9 Albumin 2.4 L Home Medications Medication Instructions Recorded Levothyroxine [Synthroid -] 75 mcg PO DAILY #0 tablet 06/14/13 Metoprolol Succinate [Toprol XL -] 25 mg PO DAILY #0 tab.sr.24h 06/14/13 Multivit-Min/FA/Lycopene/Lut 1 each PO DAILY #0 tablet 06/14/13 [Centrum Silver Tablet] Quinapril HCl [Accupril -] 40 mg PO DAILY #0 tablet 06/14/13 Ascorbic Acid [Vitamin C -] 500 mg PO DAILY #30 tablet 06/20/14 Memantine HCl [Namenda -] 20 mg PO HS 01/22/16 Metformin HCl [Riomet] 750 mg PO BID 01/22/16 Atorvastatin Ca [Lipitor] 10 mg PO HS tablet 07/15/19 Alprazolam [Xanax] 0.5 mg PO HS 07/21/19 Vitamin B Complex [B Complex] 1 each PO DAILY 07/21/19 Current Medications Generic Name Dose Route Start Last Admin Trade Name Freq PRN Reason Stop Dose Admin Acetaminophen 650 mg 07/26/19 18:12 08/01/19 21:23 Tylenol - PO 650 mg Q6H PRN Administration Fever Or Pain Collagenase 1 applic 07/25/19 12:00 08/02/19 13:06 Santyl - TP 1 applic DAILY SILVINO Administration Protocol Docusate Sodium 100 mg 07/23/19 11:39 07/31/19 10:46 Colace - PO 100 mg BID PRN Administration CONSTIPATION Ertapenem 1 gm/ Sodium 50 mls @ 100 mls/hr 07/30/19 16:00 08/02/19 13:04 Chloride IVPB 100 mls/hr DAILY SILVINO Administration Insulin Aspart 1 vial 07/21/19 07:00 08/02/19 13:04 Novolog Vial Sliding Scale - SQ Not Given ACHS SILVINO Protocol Lactulose 20 gm 07/23/19 15:08 07/23/19 23:04 Cephulac (Oral Use) PO 20 gm Q8H PRN Administration CONSTIPATION Metoprolol Tartrate 12.5 mg 07/27/19 10:00 08/02/19 13:05 Lopressor - PO 12.5 mg BID SILVINO Administration Pantoprazole Sodium 40 mg 07/29/19 10:00 08/02/19 13:04 Protonix Iv IVPUSH 40 mg DAILY SILVINO Administration Quinapril HCl 40 mg 07/23/19 10:00 08/02/19 13:05 Accupril - PO 40 mg DAILY SILVINO Administration Senna 1 tab 07/23/19 22:00 08/01/19 21:23 Senna - PO 1 tab HS SILVINO Administration A/P: 89 F h/o HLD, DM, hypothyroidism, GERD, RUE DVT formerly on AC, Stage 3 sacral decubitus ulcer and dementia, non-verbal at baseline, admitted for hemorrhoidal bleed which now resolved. Also found to have UTI/PNA, and transaminitis of unknown origin. ASSESSMENT/PLAN: Multilobar PNA impression aspiration v.s. HAP urine cultures: Klebsiella, lactose fermenting gram neg still spiking fevers, maybe secondary to chronic RUE DVT v.s. microaspiration w / PNA abx escalated to Ertapenem now Day 3 follow up ID recommendations ID consult: Dr Aoms R/o cholecystitis Abd US revealed gallstones and trace pericholecystic fluid HIDA unremarkable for acute gall bladder pathology, Send Hepatitis panel with next blood draw Surgery consult: Dr Lind GI consult: Dr Rodriguez HTN cont. BB, PAULIE Rectal bleeding 2/2 hemorrhoids bleeding resolved, AC held Per GI Rectal bleeding due to hemorrhoids. Bleeding from diverticulosis, vascular ectasias and ischemic colitis could be hourly and cause a drop in Hb. H.H stable, keep PPI, family refusing colonoscopy GI consult: Dr Rodriguez SLOAN repleted iron w/ venofer, likely 2/2 GIB, transfuse PRN cont. PPI, avoid NSAIDs Sacral decubitus ulcer stage 3 wound care referral RUE DVT held off AC due to rectal bleeding ?causing fever spikes DVT ppx: SCD/TEDs GI ppx: PPI Med-surg
--- NOTE | 2019-08-02 20:52 | PN.GI ---
GI Progress Note Subjective: GI NOte: Events noted. Rapid rise and fall fo LFTs noted. Stones noted in the GB. Hida is negative - Objective Vital Signs: Vital Signs Temperature 99.4 F 08/02/19 18:00 Pulse Rate 93 H 08/02/19 18:00 Respiratory Rate 18 08/02/19 18:00 Blood Pressure 137/66 08/02/19 18:00 O2 Sat by Pulse Oximetry (%) 97 08/02/19 10:00 Laboratory Tests 07/21/19 07/22/19 07/24/19 03:35 08:05 08:45 Total Bilirubin 0.2 0.7 AST 25 ALT 18 Alkaline Phosphatase 136 H 110 07/29/19 07/30/19 07/30/19 07:45 08:50 16:15 Total Bilirubin 0.2 0.6 AST 42 H 432 H 332 H ALT 33 195 H 211 H Alkaline Phosphatase 117 241 H 282 H 07/31/19 08/02/19 08:10 10:00 Total Bilirubin 0.2 AST 165 H 55 H ALT 143 H 69 H Alkaline Phosphatase 240 H 214 H Constitutional: Calm ...Auscultate: Yes: Normoactive Bowel Sounds ...Palpate: Yes: Soft, Other (nontender) Labs: CBC, BMP 08/02/19 10:00 08/02/19 10:00 INR, PTT INR 1.08 (0.83-1.09) 07/30/19 16:15 Assessment/Plan Assessment - Such as rapid rise and fall of LFTs is most consistent with passage of stones or sludge through the CBD. Agre that Ngozi is a poor surgical candidate for elective cholecytectomy. I also doubt that she anais lie still enough in the MRI gantry to permit an adequate MRCP - Rectal bleeding due to hemorrhoids has resolved - Constipation Plan: -- Continue Lactulose -- Follow LFTs, if they rise again an MRCP will need to be reconsidered Problem List - Problems (1) Abnormal liver function tests Code(s): R94.5 - ABNORMAL RESULTS OF LIVER FUNCTION STUDIES (2) Hematochezia Code(s): K92.1 - MELENA (3) DVT of upper extremity (deep vein thrombosis) Code(s): I82.629 - ACUTE EMBOLISM AND THROMBOSIS OF DEEP VN UNSP UP EXTREM (4) Hypothyroid Code(s): E03.9 - HYPOTHYROIDISM, UNSPECIFIED (5) Type 2 diabetes mellitus Code(s): E11.9 - TYPE 2 DIABETES MELLITUS WITHOUT COMPLICATIONS (6) Anemia due to gastrointestinal blood loss Code(s): D50.0 - IRON DEFICIENCY ANEMIA SECONDARY TO BLOOD LOSS (CHRONIC) (7) Constipation Code(s): K59.00 - CONSTIPATION, UNSPECIFIED (8) Dementia Code(s): F03.90 - UNSPECIFIED DEMENTIA WITHOUT BEHAVIORAL DISTURBANCE (9) Diverticulosis Code(s): K57.90 - DVRTCLOS OF INTEST, PART UNSP, W/O PERF OR ABSCESS W/O BLEED (10) Hypernatremia Code(s): E87.0 - HYPEROSMOLALITY AND HYPERNATREMIA (11) Hypertension Code(s): I10 - ESSENTIAL (PRIMARY) HYPERTENSION (12) Hypothyroidism Code(s): E03.9 - HYPOTHYROIDISM, UNSPECIFIED (13) NSTEMI (non-ST elevated myocardial infarction) Code(s): I21.4 - NON-ST ELEVATION (NSTEMI) MYOCARDIAL INFARCTION (14) Rectal mucosa prolapse Code(s): K62.3 - RECTAL PROLAPSE
[2019-08-02] MEDS: SENNOSIDES 8.6MG TABLET (FP) PO SCH (21:41)
[2019-08-03] MEDS: INSULIN SLIDING SCALE (NOVOLOG) 1 VIAL SQ SCH ×4 (06:18→21:37)
[2019-08-03 08:23] LABS: BASO % 0.6 % (0-2.0); EOS % 1.2 % (0-4.5); HEMATOCRIT 23.2 % (32.4-45.2); HEMOGLOBIN 7.8 GM/dL (10.7-15.3); LYMPH % 24.5 % (8-40); MCH 30.4 pg (25.7-33.7); MCHC 33.5 g/dl (32.0-36.0); MEAN CELL VOLUME 90.5 fl (80-96); MEAN PLT VOLUME 6.8 fl (7.5-11.1); MONO % 10.6 % (3.8-10.2); NEUT % 63.1 % (42.8-82.8); PLATELET COUNT 436 K/MM3 (134-434); RBC 2.57 M/mm3 (3.60-5.2); RDW 15.8 % (11.6-15.6); WHITE BLOOD COUNT 8.6 K/mm3 (4.0-10.0)
[2019-08-03 08:37] LABS: ALBUMIN 2.1 g/dl (3.4-5.0); BILIRUBIN,TOTAL 0.6 mg/dL (0.2-1); CALCIUM 8.7 mg/dL (8.5-10.1); POTASSIUM 4.1 mmol/L (3.5-5.1); TOT PROT 6.5 g/dl (6.4-8.2)
[2019-08-03] MEDS: ERTAPENEM SODIUM 1 GM in SODIUM CHLORIDE 50 ML IVPB SCH (10:26)
[2019-08-03] MEDS: PANTOPRAZOLE SODIUM 40 MG VIAL IVPUSH SCH (10:26)
[2019-08-03] MEDS: METOPROLOL TARTRATE 25 MG TABLET (FP) PO SCH ×2 (10:26→21:39)
[2019-08-03] MEDS: QUINAPRIL HCL 40 MG TABLET (FP) PO SCH (10:27)
[2019-08-03] MEDS: COLLAGENASE CLOSTRIDIUM HIST. 30 GRAMS TUBE TP SCH (10:28)
--- NOTE | 2019-08-03 11:27 | PN ---
Physical Exam: SUBJECTIVE: Patient seen and examined. No events overnight. HIDA scan negative. OBJECTIVE: Vital Signs Period Temp Pulse Resp BP Sys/Tolentino Pulse Ox Last 24 Hr 97.7 F-99.4 F 90-101 18-18 122-146/63-82 96 GENERAL: in NAD, nonverbal, looks comfortable EYES: PERRL, sclera anicteric ENT: moist mucous membranes. NECK: supple. LUNGS: decreased breath sounds, no accessory muscle use. HEART: RRR ABDOMEN: Soft, nontender, nondistended, normoactive bowel sounds EXTREMITIES: 2+ pulses, no edema. Laboratory Results - last 24 hr 08/02/19 08/02/19 08/02/19 10:00 10:00 13:03 WBC 9.8 RBC 2.84 L Hgb 8.6 L Hct 25.9 L MCV 91.2 MCH 30.4 MCHC 33.3 RDW 16.3 H Plt Count 472 H MPV 6.9 L Absolute Neuts (auto) 6.6 Neutrophils % 67.6 Lymphocytes % 21.3 Monocytes % 9.7 Eosinophils % 0.8 Basophils % 0.6 Nucleated RBC % 0 Sodium 137 Potassium 4.4 Chloride 104 Carbon Dioxide 27 Anion Gap 7 L BUN 24.2 H Creatinine 1.1 Est GFR (CKD-EPI)AfAm 51.55 Est GFR (CKD-EPI)NonAf 44.48 POC Glucometer 108 Random Glucose 120 H Calcium 8.7 Total Bilirubin 0.2 AST 55 H ALT 69 H Alkaline Phosphatase 214 H Total Protein 6.9 Albumin 2.4 L 08/02/19 08/02/19 08/03/19 17:31 20:31 06:15 WBC RBC Hgb Hct MCV MCH MCHC RDW Plt Count MPV Absolute Neuts (auto) Neutrophils % Lymphocytes % Monocytes % Eosinophils % Basophils % Nucleated RBC % Sodium Potassium Chloride Carbon Dioxide Anion Gap BUN Creatinine Est GFR (CKD-EPI)AfAm Est GFR (CKD-EPI)NonAf POC Glucometer 124 139 119 Random Glucose Calcium Total Bilirubin AST ALT Alkaline Phosphatase Total Protein Albumin 08/03/19 08/03/19 07:08 07:08 WBC 8.6 RBC 2.57 L Hgb 7.8 L Hct 23.2 L MCV 90.5 MCH 30.4 MCHC 33.5 RDW 15.8 H Plt Count 436 H MPV 6.8 L Absolute Neuts (auto) 5.4 Neutrophils % 63.1 Lymphocytes % 24.5 Monocytes % 10.6 H Eosinophils % 1.2 Basophils % 0.6 Nucleated RBC % 0 Sodium 139 Potassium 4.1 Chloride 106 Carbon Dioxide 28 Anion Gap 6 L BUN 22.0 H Creatinine 1.0 Est GFR (CKD-EPI)AfAm 57.84 Est GFR (CKD-EPI)NonAf 49.91 POC Glucometer Random Glucose 122 H Calcium 8.7 Total Bilirubin 0.6 AST 42 H ALT 53 Alkaline Phosphatase 191 H Total Protein 6.5 Albumin 2.1 L Active Medications Generic Name Dose Route Start Last Admin Trade Name Freq PRN Reason Stop Dose Admin Acetaminophen 650 mg 07/26/19 18:12 08/01/19 21:23 Tylenol - PO 650 mg Q6H PRN Administration Fever Or Pain Collagenase 1 applic 07/25/19 12:00 08/03/19 10:28 Santyl - TP 1 applic DAILY SILVINO Administration Protocol Docusate Sodium 100 mg 07/23/19 11:39 07/31/19 10:46 Colace - PO 100 mg BID PRN Administration CONSTIPATION Ertapenem 1 gm/ Sodium 50 mls @ 100 mls/hr 07/30/19 16:00 08/03/19 10:26 Chloride IVPB 100 mls/hr DAILY SILVINO Administration Insulin Aspart 1 vial 07/21/19 07:00 08/03/19 06:18 Novolog Vial Sliding Scale - SQ Not Given ACHS SILVINO Protocol Lactulose 20 gm 07/23/19 15:08 07/23/19 23:04 Cephulac (Oral Use) PO 20 gm Q8H PRN Administration CONSTIPATION Metoprolol Tartrate 12.5 mg 07/27/19 10:00 08/03/19 10:26 Lopressor - PO 12.5 mg BID SILVINO Administration Pantoprazole Sodium 40 mg 07/29/19 10:00 08/03/19 10:26 Protonix Iv IVPUSH 40 mg DAILY SILVINO Administration Quinapril HCl 40 mg 07/23/19 10:00 08/03/19 10:27 Accupril - PO 40 mg DAILY SILVINO Administration Senna 1 tab 07/23/19 22:00 08/02/19 21:41 Senna - PO 1 tab HS SILVINO Administration ASSESSMENT/PLAN: 89 F h/o HLD, DM, hypothyroidism, GERD, RUE DVT formerly on AC, Stage 3 sacral decubitus ulcer and dementia, non-verbal at baseline, transferred from [facility] for rectal bleeding. Patient admitted for aspiration PNA with prolonged abx course, complicated by rectal bleeding in which was attributed to hemorrhoids. H /H now stable. CT chest showing multilobar PNA, however clinically patient appears stable and as per daughter, slightly improved from prior. HIDA scan done for transaminitis today did not show gall bladder pathology. VS otherwise stable. ASSESSMENT/PLAN: #Multilobal PNA -likely aspiration -urine cultures: Klebsiella, lactose fermenting gram neg -Febrile last night 10pm -Switched to Ertapenem now Day 4 -fu ID reccs. -currently afebrile -monitor vital signs -aspiraton precautions -Chest CT yesterday with no interval change. #Transaminitis -resolving -Abd US revealed gallstones and trace pericholecystic fluid -HIDA negative -per GI: Such as rapid rise and fall of LFTs is most consistent with passage of stones or sludge through the CBD. Follow LFTs, if they rise again an MRCP will need to be reconsidered # Rectal bleeding R/O Lower GI Bleed -no further episodes of bleeding -Bleed likely due to multiple etiologies, prolapse, friability, asa use. -Per GI Rectal bleeding due to hemorrhoids. Bleeding from diverticulosis, vascular ectasias and ischemic colitis could be hourly and cause a drop in Hb. -Hgb stable -monitor H&H -cont Pantoprazole 40mg -colonoscopy discussed with family by GI, currently declining. #Iron def Anemia -likely due to chronic bleeding likely from multiple etiologies that include residual rectal prolapse repair site friablity, suspected small bowel vascular ectasias and possible large hiatal hernia [place] ulcers per GI -s/p 2 Units PRBC last admission. (07/04 and 07/08). - s/p 3x venofer this admission. 1x last admission. -Pantoprazole daily -monitor h/h #Sacral decubitus ulcer stage 2 -wound care #Right arm DVT -no heparin at this time due to possible bleed -was found last admission #Type 2 DM #HTN #HLD #History of TIA-aspirin held #Dvt ppx -no hep at this time Visit type - Emergency Visit Emergency Visit: Yes ED Registration Date: 01/22/20 Care time: The patient presented to the Emergency Department on the above date and was hospitalized for further evaluation of their emergent condition. - New Patient This patient is new to me today: Yes Date on this admission: 08/03/19 - Critical Care Critical Care patient: No ATTENDING PHYSICIAN STATEMENT I saw and evaluated the patient. I reviewed the resident's note and discussed the case with the resident. I agree with the resident's findings and plan as documented. SUBJECTIVE: OBJECTIVE: ASSESSMENT AND PLAN:
--- NOTE | 2019-08-03 12:05 | PN ---
Progress Note, [employer] - Note Progress Note: Selected Entries 07/31/19 07/31/19 07/31/19 06:29 15:00 18:00 Breakfast Lunch Supper Temperature 98.7 F 98.3 F 100.7 F H 07/31/19 08/01/19 08/01/19 22:00 06:00 10:00 Breakfast Lunch Supper Temperature 100 F H 98.7 F 98.4 F 08/01/19 08/01/19 08/01/19 14:00 18:00 22:00 Breakfast 100% Lunch 75% Supper 50% Temperature 99.9 F H 97.8 F 100.9 F H 08/02/19 08/02/19 08/02/19 06:00 09:37 16:05 Breakfast Lunch 50% Supper Temperature 97.5 F L 98.3 F 97.7 F 08/02/19 08/02/19 08/03/19 18:00 22:00 02:00 Breakfast Lunch Supper 50% Temperature 99.4 F 99.3 F 99.4 F 08/03/19 06:00 Breakfast Lunch Supper Temperature 98.3 F Laboratory Tests 07/31/19 08/02/19 08/03/19 08:10 10:00 07:08 WBC 7.5 9.8 8.6 On puree/honey ON A TSP. Educated pt's daughter om MBS and compensatory swallowing recommendations. She was advised on blenderizing foods with extra gravy, and adding ensure, condiments,sweetener, other liquids.
--- NOTE | 2019-08-03 17:28 | PN ---
Teaching Attending Note Name of Resident: Joanne Feilds ATTENDING PHYSICIAN STATEMENT I saw and evaluated the patient. I reviewed the resident's note and discussed the case with the resident. I agree with the resident's findings and plan as documented. SUBJECTIVE: seen and examined at bedside, no acute events overnight, afebrile. OBJECTIVE: Constitutional: Yes: No Distress, Calm Cardiovascular: Yes: Regular Rate and Rhythm Respiratory: Yes: Regular, CTA Bilaterally Gastrointestinal: Yes: WNL, Normal Bowel Sounds, Soft Edema: No Neurological: Yes: Other (nonverbal) Vital Signs - 24 hr 08/02/19 08/02/19 08/02/19 18:00 21:00 22:00 Temperature 99.4 F 99.3 F Pulse Rate 93 H 95 H Respiratory 18 18 18 Rate Blood Pressure 137/66 142/80 O2 Sat by Pulse 96 Oximetry (%) 08/03/19 08/03/19 08/03/19 02:00 06:00 10:00 Temperature 99.4 F 98.3 F 99.2 F Pulse Rate 93 H 101 H 105 H Respiratory 18 18 18 Rate Blood Pressure 146/63 137/71 152/77 O2 Sat by Pulse Oximetry (%) 08/03/19 14:00 Temperature 98.5 F Pulse Rate 84 Respiratory 18 Rate Blood Pressure 117/59 L O2 Sat by Pulse Oximetry (%) Current Medications Acetaminophen (Tylenol -) 650 mg PO Q6H PRN PRN Reason: Fever Or Pain Last Admin: 08/01/19 21:23 Dose: 650 mg Collagenase (Santyl -) 1 applic TP DAILY [facility]; Protocol Last Admin: 08/03/19 10:28 Dose: 1 applic Docusate Sodium (Colace -) 100 mg PO BID PRN PRN Reason: CONSTIPATION Last Admin: 07/31/19 10:46 Dose: 100 mg Ertapenem 1 gm/ Sodium (Chloride) 50 mls @ 100 mls/hr IVPB DAILY SILVINO Last Admin: 08/03/19 10:26 Dose: 100 mls/hr Insulin Aspart (Novolog Vial Sliding Scale -) 1 vial SQ ACHS [facility]; Protocol Last Admin: 08/03/19 17:11 Dose: Not Given Lactulose (Cephulac (Oral Use)) 20 gm PO Q8H PRN PRN Reason: CONSTIPATION Last Admin: 07/23/19 23:04 Dose: 20 gm Metoprolol Tartrate (Lopressor -) 12.5 mg PO BID [facility] Last Admin: 08/03/19 10:26 Dose: 12.5 mg Pantoprazole Sodium (Protonix Iv) 40 mg IVPUSH DAILY [facility] Last Admin: 08/03/19 10:26 Dose: 40 mg Quinapril HCl (Accupril -) 40 mg PO DAILY [facility] Last Admin: 08/03/19 10:27 Dose: 40 mg Senna (Senna -) 1 tab PO HS [facility] Last Admin: 08/02/19 21:41 Dose: 1 tab Laboratory Results - last 24 hr 08/02/19 08/02/19 08/03/19 17:31 20:31 06:15 WBC RBC Hgb Hct MCV MCH MCHC RDW Plt Count MPV Absolute Neuts (auto) Neutrophils % Lymphocytes % Monocytes % Eosinophils % Basophils % Nucleated RBC % Sodium Potassium Chloride Carbon Dioxide Anion Gap BUN Creatinine Est GFR (CKD-EPI)AfAm Est GFR (CKD-EPI)NonAf POC Glucometer 124 139 119 Random Glucose Calcium Total Bilirubin AST ALT Alkaline Phosphatase Total Protein Albumin 08/03/19 08/03/19 08/03/19 07:08 07:08 12:28 WBC 8.6 RBC 2.57 L Hgb 7.8 L Hct 23.2 L MCV 90.5 MCH 30.4 MCHC 33.5 RDW 15.8 H Plt Count 436 H MPV 6.8 L Absolute Neuts (auto) 5.4 Neutrophils % 63.1 Lymphocytes % 24.5 Monocytes % 10.6 H Eosinophils % 1.2 Basophils % 0.6 Nucleated RBC % 0 Sodium 139 Potassium 4.1 Chloride 106 Carbon Dioxide 28 Anion Gap 6 L BUN 22.0 H Creatinine 1.0 Est GFR (CKD-EPI)AfAm 57.84 Est GFR (CKD-EPI)NonAf 49.91 POC Glucometer 221 Random Glucose 122 H Calcium 8.7 Total Bilirubin 0.6 AST 42 H ALT 53 Alkaline Phosphatase 191 H Total Protein 6.5 Albumin 2.1 L 08/03/19 17:08 WBC RBC Hgb Hct MCV MCH MCHC RDW Plt Count MPV Absolute Neuts (auto) Neutrophils % Lymphocytes % Monocytes % Eosinophils % Basophils % Nucleated RBC % Sodium Potassium Chloride Carbon Dioxide Anion Gap BUN Creatinine Est GFR (CKD-EPI)AfAm Est GFR (CKD-EPI)NonAf POC Glucometer 133 Random Glucose Calcium Total Bilirubin AST ALT Alkaline Phosphatase Total Protein Albumin A/P: 89 F h/o HLD, DM, hypothyroidism, GERD, RUE DVT formerly on AC, Stage 3 sacral decubitus ulcer and dementia, non-verbal at baseline, admitted for hemorrhoidal bleed which now resolved. Also found to have UTI/PNA, and transaminitis of unknown origin. Multilobar PNA-likely aspiration Transaminitis, cholelithiasis Complicated UTI-polymicrobial HTN Lower GIB SLOAN Sacral Decub stage 3 RUE DVT Plan: c/w ertapenem day 4 ID following lfts trending down no further episodes of bleeding ID and GI following PPI wound care Problem List - Problems (1) Anemia Code(s): D64.9 - ANEMIA, UNSPECIFIED (2) Hematochezia Code(s): K92.1 - MELENA (3) Hypothyroid Code(s): E03.9 - HYPOTHYROIDISM, UNSPECIFIED (4) IN (blood per rectum) Code(s): K62.5 - HEMORRHAGE OF ANUS AND RECTUM (5) Sacral decubitus ulcer, stage III Code(s): L89.153 - PRESSURE ULCER OF SACRAL REGION, STAGE 3 (6) Type 2 diabetes mellitus Code(s): E11.9 - TYPE 2 DIABETES MELLITUS WITHOUT COMPLICATIONS (7) Constipation Code(s): K59.00 - CONSTIPATION, UNSPECIFIED
--- NOTE | 2019-08-03 20:22 | PN.GI ---
GI Progress Note Subjective: GI NOte: Resting comfortably. Denies pain. LFTs continue to normalize - Objective Vital Signs: Vital Signs Temperature 98.4 F 08/03/19 18:18 Pulse Rate 85 08/03/19 18:18 Respiratory Rate 18 08/03/19 18:18 Blood Pressure 102/49 L 08/03/19 18:18 O2 Sat by Pulse Oximetry (%) 93 L 08/03/19 10:00 Laboratory Tests 07/29/19 07/30/19 07/31/19 07:45 16:15 08:10 Total Bilirubin AST 165 H ALT Alkaline Phosphatase 117 282 H 08/02/19 08/03/19 10:00 07:08 Total Bilirubin 0.6 AST 55 H 42 H ALT 53 Alkaline Phosphatase 191 H Constitutional: Calm ...Auscultate: Yes: Hypoactive Bowel Sounds ...Palpate: Yes: Soft, Other (nontender) Labs: CBC, BMP 08/03/19 07:08 08/03/19 07:08 INR, PTT INR 1.08 (0.83-1.09) 07/30/19 16:15 Assessment/Plan Assessment - Resolved choledocholithiasis. Ngozi is a poor surgical candidate for elective cholecystectomy. - Rectal bleeding due to hemorrhoids has resolved - Constipation Plan: -- Continue Lactulose -- Follow LFTs, if they rise again an MRCP will need to be reconsidered Problem List - Problems (1) Choledocholithiasis Code(s): K80.50 - CALCULUS OF BILE DUCT W/O CHOLANGITIS OR CHOLECYST W/O OBST (2) Abnormal liver function tests Code(s): R94.5 - ABNORMAL RESULTS OF LIVER FUNCTION STUDIES (3) Hematochezia Code(s): K92.1 - MELENA (4) DVT of upper extremity (deep vein thrombosis) Code(s): I82.629 - ACUTE EMBOLISM AND THROMBOSIS OF DEEP VN UNSP UP EXTREM (5) Hypothyroid Code(s): E03.9 - HYPOTHYROIDISM, UNSPECIFIED (6) Type 2 diabetes mellitus Code(s): E11.9 - TYPE 2 DIABETES MELLITUS WITHOUT COMPLICATIONS (7) Anemia due to gastrointestinal blood loss Code(s): D50.0 - IRON DEFICIENCY ANEMIA SECONDARY TO BLOOD LOSS (CHRONIC) (8) Constipation Code(s): K59.00 - CONSTIPATION, UNSPECIFIED (9) Dementia Code(s): F03.90 - UNSPECIFIED DEMENTIA WITHOUT BEHAVIORAL DISTURBANCE (10) Diverticulosis Code(s): K57.90 - DVRTCLOS OF INTEST, PART UNSP, W/O PERF OR ABSCESS W/O BLEED (11) Hypernatremia Code(s): E87.0 - HYPEROSMOLALITY AND HYPERNATREMIA (12) Hypertension Code(s): I10 - ESSENTIAL (PRIMARY) HYPERTENSION (13) Hypothyroidism Code(s): E03.9 - HYPOTHYROIDISM, UNSPECIFIED (14) NSTEMI (non-ST elevated myocardial infarction) Code(s): I21.4 - NON-ST ELEVATION (NSTEMI) MYOCARDIAL INFARCTION (15) Rectal mucosa prolapse Code(s): K62.3 - RECTAL PROLAPSE
[2019-08-03] MEDS: SENNOSIDES 8.6MG TABLET (FP) PO SCH (21:38)
[2019-08-04] MEDS: INSULIN SLIDING SCALE (NOVOLOG) 1 VIAL SQ SCH ×4 (07:04→21:55)
--- NOTE | 2019-08-04 08:35 | PN ---
Physical Exam: SUBJECTIVE: Patient seen and examined. No events overnight. 99.8 temp last night ? OBJECTIVE: Vital Signs Period Temp Pulse Resp BP Sys/Tolentino Pulse Ox Last 24 Hr 98.4 F-99.8 F 84-105 18-24 102-152/49-77 93-95 GENERAL: in NAD, nonverbal, looks comfortable EYES: PERRL, sclera anicteric ENT: moist mucous membranes. NECK: supple. LUNGS: decreased breath sounds, no accessory muscle use. HEART: RRR ABDOMEN: Soft, nontender, nondistended, normoactive bowel sounds EXTREMITIES: 2+ pulses, no edema. Laboratory Results - last 24 hr 08/03/19 08/03/19 08/03/19 07:08 12:28 17:08 Sodium 139 Potassium 4.1 Chloride 106 Carbon Dioxide 28 Anion Gap 6 L BUN 22.0 H Creatinine 1.0 Est GFR (CKD-EPI)AfAm 57.84 Est GFR (CKD-EPI)NonAf 49.91 POC Glucometer 221 133 Random Glucose 122 H Calcium 8.7 Total Bilirubin 0.6 AST 42 H ALT 53 Alkaline Phosphatase 191 H Total Protein 6.5 Albumin 2.1 L 08/03/19 08/04/19 21:33 06:53 Sodium Potassium Chloride Carbon Dioxide Anion Gap BUN Creatinine Est GFR (CKD-EPI)AfAm Est GFR (CKD-EPI)NonAf POC Glucometer 211 116 Random Glucose Calcium Total Bilirubin AST ALT Alkaline Phosphatase Total Protein Albumin Active Medications Generic Name Dose Route Start Last Admin Trade Name Freq PRN Reason Stop Dose Admin Acetaminophen 650 mg 07/26/19 18:12 08/01/19 21:23 Tylenol - PO 650 mg Q6H PRN Administration Fever Or Pain Collagenase 1 applic 07/25/19 12:00 08/03/19 10:28 Santyl - TP 1 applic DAILY SILVINO Administration Protocol Docusate Sodium 100 mg 07/23/19 11:39 07/31/19 10:46 Colace - PO 100 mg BID PRN Administration CONSTIPATION Ertapenem 1 gm/ Sodium 50 mls @ 100 mls/hr 07/30/19 16:00 08/03/19 10:26 Chloride IVPB 100 mls/hr DAILY SILVINO Administration Insulin Aspart 1 vial 07/21/19 07:00 08/04/19 07:04 Novolog Vial Sliding Scale - SQ Not Given ACHS SILVINO Protocol Lactulose 20 gm 07/23/19 15:08 07/23/19 23:04 Cephulac (Oral Use) PO 20 gm Q8H PRN Administration CONSTIPATION Metoprolol Tartrate 12.5 mg 07/27/19 10:00 08/03/19 21:39 Lopressor - PO 12.5 mg BID SILVINO Administration Pantoprazole Sodium 40 mg 07/29/19 10:00 08/03/19 10:26 Protonix Iv IVPUSH 40 mg DAILY SILVINO Administration Quinapril HCl 40 mg 07/23/19 10:00 08/03/19 10:27 Accupril - PO 40 mg DAILY SILVINO Administration Senna 1 tab 07/23/19 22:00 08/03/19 21:38 Senna - PO 1 tab HS SILVINO Administration Ursodiol 300 mg 08/04/19 10:00 Actigal - PO BID SILVINO ASSESSMENT/PLAN: 89 F h/o HLD, DM, hypothyroidism, GERD, RUE DVT formerly on AC, Stage 3 sacral decubitus ulcer and dementia, non-verbal at baseline, transferred from [facility] for rectal bleeding. Patient admitted for aspiration PNA with prolonged abx course, complicated by rectal bleeding in which was attributed to hemorrhoids. H /H now stable. CT chest showing multilobar PNA, however clinically patient appears stable and as per daughter, slightly improved from prior. HIDA scan done for transaminitis did not show gall bladder pathology. VS otherwise stable. #Multilobal PNA -likely aspiration -urine cultures: Klebsiella, lactose fermenting gram neg -Febrile last night 10pm -Switched to Ertapenem now Day 6 -fu ID reccs. -currently afebrile -monitor vital signs -aspiraton precautions -Chest CT 2/3 with no interval change. #Transaminitis 2/2 choledocholithiasis -Resolved choledocholithiasis. -lfts downtrending -Abd US revealed gallstones and trace pericholecystic fluid -HIDA negative -per GI: Such as rapid rise and fall of LFTs is most consistent with passage of stones or sludge through the CBD. If LFTs rise again an MRCP will need to be reconsidered # Rectal bleeding -resolved -no further episodes of bleeding -Bleed likely due to multiple etiologies, prolapse, friability, asa use. -Per GI Rectal bleeding due to hemorrhoids. Bleeding from diverticulosis, vascular ectasias and ischemic colitis could be hourly and cause a drop in Hb. -Hgb stable -monitor H&H -cont Pantoprazole 40mg -colonoscopy discussed with family by GI, currently declining. #Iron def Anemia -likely due to chronic bleeding likely from multiple etiologies that include residual rectal prolapse repair site friablity, suspected small bowel vascular ectasias and possible large hiatal hernia [place] ulcers per GI -s/p 2 Units PRBC last admission. (07/04 and 07/08). - s/p 3x venofer this admission. 1x last admission. -Pantoprazole daily -monitor h/h #Sacral decubitus ulcer stage 2 -wound care #Right arm DVT -no heparin at this time due to possible bleed -was found last admission #Type 2 DM #HTN #HLD #History of TIA-aspirin held #Dvt ppx -no hep at this time Visit type - Emergency Visit Emergency Visit: Yes ED Registration Date: 07/21/19 Care time: The patient presented to the Emergency Department on the above date and was hospitalized for further evaluation of their emergent condition. - New Patient This patient is new to me today: Yes Date on this admission: 08/04/19 - Critical Care Critical Care patient: No ATTENDING PHYSICIAN STATEMENT I saw and evaluated the patient. I reviewed the resident's note and discussed the case with the resident. I agree with the resident's findings and plan as documented. SUBJECTIVE: OBJECTIVE: ASSESSMENT AND PLAN:
[2019-08-04 09:14] LABS: BASO % 0.5 % (0-2.0); EOS % 1.5 % (0-4.5); HEMATOCRIT 23.3 % (32.4-45.2); HEMOGLOBIN 7.9 GM/dL (10.7-15.3); LYMPH % 24.4 % (8-40); MCH 30.7 pg (25.7-33.7); MCHC 33.9 g/dl (32.0-36.0); MEAN CELL VOLUME 90.5 fl (80-96); MEAN PLT VOLUME 6.8 fl (7.5-11.1); MONO % 10.4 % (3.8-10.2); NEUT % 63.2 % (42.8-82.8); PLATELET COUNT 429 K/MM3 (134-434); RBC 2.57 M/mm3 (3.60-5.2); RDW 16.3 % (11.6-15.6)
[2019-08-04] MEDS ORDERED: PT OWN MED DRAWER 7, Y5N ONE (09:44)
[2019-08-04 09:53] LABS: ALBUMIN 2.1 g/dl (3.4-5.0); BILIRUBIN,TOTAL 0.2 mg/dL (0.2-1); BLOOD UREA NITROGEN 22.4 mg/dL (7-18); CALCIUM 8.4 mg/dL (8.5-10.1); CREATININE 0.9 mg/dL (0.55-1.3); POTASSIUM 4.4 mmol/L (3.5-5.1); TOT PROT 6.6 g/dl (6.4-8.2)
[2019-08-04] MEDS: METOPROLOL TARTRATE 25 MG TABLET (FP) PO SCH ×2 (10:12→21:55)
[2019-08-04] MEDS: URSODIOL 300 MG CAPSULE PO SCH ×2 (10:12→21:55)
--- NOTE | 2019-08-04 10:13 | PN ---
Progress Note, COLLAR SEPARATOR - Note Progress Note: Selected Entries 08/03/19 08/03/19 08/03/19 02:00 06:00 10:00 Breakfast Lunch Supper Temperature 99.4 F 98.3 F 99.2 F 08/03/19 08/03/19 08/03/19 14:00 18:18 22:00 Breakfast 100% Lunch 100% Supper 75% Temperature 98.5 F 98.4 F 99.8 F H 08/04/19 08/04/19 08/04/19 02:00 06:00 09:39 Breakfast Lunch Supper Temperature 98.7 F 98.5 F 98 F Laboratory Tests 08/04/19 08:07 WBC 8.0 Doing well with compensatory swallowing strategies.
[2019-08-04] MEDS: ERTAPENEM SODIUM 1 GM in SODIUM CHLORIDE 50 ML IVPB SCH (10:14)
[2019-08-04] MEDS: QUINAPRIL HCL 40 MG TABLET (FP) PO SCH (10:14)
[2019-08-04] MEDS: PANTOPRAZOLE SODIUM 40 MG VIAL IVPUSH SCH (10:14)
[2019-08-04] MEDS: COLLAGENASE CLOSTRIDIUM HIST. 30 GRAMS TUBE TP SCH (10:16)
--- NOTE | 2019-08-04 14:06 | PN ---
Teaching Attending Note Name of Resident: Joanne Fields ATTENDING PHYSICIAN STATEMENT I saw and evaluated the patient. I reviewed the resident's note and discussed the case with the resident. I agree with the resident's findings and plan as documented. SUBJECTIVE: Seen and examined at bedside, no acute events overnight. Eating well with assistance. OBJECTIVE: Vital Signs - 24 hr 08/03/19 08/03/19 08/03/19 18:18 21:00 22:00 Temperature 98.4 F 99.8 F H Pulse Rate 85 88 Respiratory 18 24 H Rate Blood Pressure 102/49 L 135/65 O2 Sat by Pulse 95 Oximetry (%) 08/04/19 08/04/19 08/04/19 02:00 06:00 09:39 Temperature 98.7 F 98.5 F 98 F Pulse Rate 93 H 90 99 H Respiratory 20 20 20 Rate Blood Pressure 129/69 110/59 L 133/68 O2 Sat by Pulse Oximetry (%) PE: Constitutional: Yes: No Distress, Calm Cardiovascular: Yes: Regular Rate and Rhythm Respiratory: Yes: Regular, CTA Bilaterally Gastrointestinal: Yes: WNL, Normal Bowel Sounds, Soft Edema: No, contracted ext Neurological: Yes: Other (nonverbal) Current Medications Acetaminophen (Tylenol -) 650 mg PO Q6H PRN PRN Reason: Fever Or Pain Last Admin: 08/01/19 21:23 Dose: 650 mg Collagenase (Santyl -) 1 applic TP DAILY [facility]; Protocol Last Admin: 08/04/19 10:16 Dose: 1 applic Docusate Sodium (Colace -) 100 mg PO BID PRN PRN Reason: CONSTIPATION Last Admin: 07/31/19 10:46 Dose: 100 mg Ertapenem 1 gm/ Sodium (Chloride) 50 mls @ 100 mls/hr IVPB DAILY [facility] Last Admin: 08/04/19 10:14 Dose: 100 mls/hr Insulin Aspart (Novolog Vial Sliding Scale -) 1 vial SQ ACHS [facility]; Protocol Last Admin: 08/04/19 12:30 Dose: 4 units Lactulose (Cephulac (Oral Use)) 20 gm PO Q8H PRN PRN Reason: CONSTIPATION Last Admin: 07/23/19 23:04 Dose: 20 gm Metoprolol Tartrate (Lopressor -) 12.5 mg PO BID [facility] Last Admin: 08/04/19 10:12 Dose: 12.5 mg Pantoprazole Sodium (Protonix Iv) 40 mg IVPUSH DAILY [facility] Last Admin: 08/04/19 10:14 Dose: 40 mg Quinapril HCl (Accupril -) 40 mg PO DAILY [facility] Last Admin: 08/04/19 10:14 Dose: 40 mg Senna (Senna -) 1 tab PO HS [facility] Last Admin: 08/03/19 21:38 Dose: 1 tab Ursodiol (Actigal -) 300 mg PO BID [facility] Last Admin: 08/04/19 10:12 Dose: 300 mg Laboratory Results - last 24 hr 08/03/19 08/03/19 08/04/19 17:08 21:33 06:53 WBC RBC Hgb Hct MCV MCH MCHC RDW Plt Count MPV Absolute Neuts (auto) Neutrophils % Lymphocytes % Monocytes % Eosinophils % Basophils % Nucleated RBC % Sodium Potassium Chloride Carbon Dioxide Anion Gap BUN Creatinine Est GFR (CKD-EPI)AfAm Est GFR (CKD-EPI)NonAf POC Glucometer 133 211 116 Random Glucose Calcium Total Bilirubin AST ALT Alkaline Phosphatase Total Protein Albumin 08/04/19 08/04/19 08/04/19 08:07 08:07 12:27 WBC 8.0 RBC 2.57 L Hgb 7.9 L Hct 23.3 L MCV 90.5 MCH 30.7 MCHC 33.9 RDW 16.3 H Plt Count 429 MPV 6.8 L Absolute Neuts (auto) 5.1 Neutrophils % 63.2 Lymphocytes % 24.4 Monocytes % 10.4 H Eosinophils % 1.5 Basophils % 0.5 Nucleated RBC % 0 Sodium 140 Potassium 4.4 Chloride 107 Carbon Dioxide 28 Anion Gap 5 L BUN 22.4 H Creatinine 0.9 Est GFR (CKD-EPI)AfAm 65.70 Est GFR (CKD-EPI)NonAf 56.69 POC Glucometer 228 Random Glucose 117 H Calcium 8.4 L Total Bilirubin 0.2 AST 34 ALT 43 Alkaline Phosphatase 175 H Total Protein 6.6 Albumin 2.1 L A/P: 89 F h/o HLD, DM, hypothyroidism, GERD, RUE DVT formerly on AC, Stage 3 sacral decubitus ulcer and dementia, non-verbal at baseline, admitted for hemorrhoidal bleed which now resolved. Also found to have UTI/PNA, and transaminitis of unknown origin. Multilobar PNA-likely aspiration Transaminitis, cholelithiasis Complicated UTI-polymicrobial HTN Lower GIB SLOAN Sacral Decub stage 3 RUE DVT Plan: c/w ertapenem course, day 6 ID following lfts trending down to normal today no further episodes of bleeding ID and GI following PPI wound care STR dispo planning Problem List - Problems (1) Anemia Code(s): D64.9 - ANEMIA, UNSPECIFIED (2) Hematochezia Code(s): K92.1 - MELENA (3) Hypothyroid Code(s): E03.9 - HYPOTHYROIDISM, UNSPECIFIED (4) ID (blood per rectum) Code(s): K62.5 - HEMORRHAGE OF ANUS AND RECTUM (5) Sacral decubitus ulcer, stage III Code(s): L89.153 - PRESSURE ULCER OF SACRAL REGION, STAGE 3 (6) Type 2 diabetes mellitus Code(s): E11.9 - TYPE 2 DIABETES MELLITUS WITHOUT COMPLICATIONS (7) Constipation Code(s): K59.00 - CONSTIPATION, UNSPECIFIED
--- NOTE | 2019-08-04 18:29 | PN ---
Progress Note (short form) - Note Progress Note: MBS noted with silent aspiration with cup-intermittent with nectar and thin liquids ct scans reviewed with radiology - LLL infiltrates noted awake alert no distress- daughter is feeding her dinner Vital Signs Period Temp Pulse Resp BP Sys/Tolentino Pulse Ox Last 24 Hr 98 F-99.8 F 88-99 20-24 110-135/55-69 95-95 cor-rrr lungs clear abd soft,nt ext no edema CBC, BMP 08/04/19 08:07 08/04/19 08:07 Microbiology 07/26/19 21:20 Blood - Peripheral Venous Blood Culture - Final NO GROWTH AFTER 5 DAYS INCUBATION 07/27/19 01:45 Urine - Urine - Catheterized Urine Culture - Final Klebsiella Pneumoniae Enterobacter Aerogenes Group D Strep Or Entero Coccus 07/24/19 19:16 Blood - Peripheral Venous Blood Culture - Final NO GROWTH AFTER 5 DAYS INCUBATION 07/24/19 19:10 Blood - Peripheral Venous Blood Culture - Final NO GROWTH AFTER 5 DAYS INCUBATION 07/26/19 20:35 Blood - Peripheral Venous Blood Culture - Final Staphylococcus Epidermidis 07/28/19 14:45 Urine For Antigen Detection Legionella Antigen - Final 07/28/19 14:45 Urine For Antigen Detection Streptococcus pneumoniae Antigen (M - Final 07/25/19 14:00 Urine - Urine Clean Catch Urine Culture - Final NO GROWTH OBTAINED a/p aspiration pneumonia to complete ertapenem -in am- d/w daughter at bedside, explained that with the silent aspiration she is always at risk of aspiration and that most of the scattered infiltrates are due to the aspiration and that this process will most likely continue to follow instructions per speech pathology lfts improved aspiration precautions dementia rectal bleeding resolved please call back if needed d/w resident
[2019-08-04] MEDS: SENNOSIDES 8.6MG TABLET (FP) PO SCH (21:55)
[2019-08-05] MEDS: INSULIN SLIDING SCALE (NOVOLOG) 1 VIAL SQ SCH ×4 (06:23→22:34)
[2019-08-05 08:28] LABS: BASO % 0.3 % (0-2.0); EOS % 0.7 % (0-4.5); HEMATOCRIT 23.4 % (32.4-45.2); HEMOGLOBIN 7.8 GM/dL (10.7-15.3); LYMPH % 22.5 % (8-40); MCH 30.2 pg (25.7-33.7); MCHC 33.3 g/dl (32.0-36.0); MEAN CELL VOLUME 90.7 fl (80-96); MEAN PLT VOLUME 6.9 fl (7.5-11.1); MONO % 9.6 % (3.8-10.2); NEUT % 66.9 % (42.8-82.8); PLATELET COUNT 480 K/MM3 (134-434); RBC 2.58 M/mm3 (3.60-5.2); RDW 16.1 % (11.6-15.6); WHITE BLOOD COUNT 8.9 K/mm3 (4.0-10.0)
[2019-08-05 08:52] LABS: ALBUMIN 2.2 g/dl (3.4-5.0); BILIRUBIN,TOTAL 0.6 mg/dL (0.2-1); BLOOD UREA NITROGEN 24.3 mg/dL (7-18); CALCIUM 8.7 mg/dL (8.5-10.1); CREATININE 0.8 mg/dL (0.55-1.3); POTASSIUM 4.4 mmol/L (3.5-5.1); TOT PROT 6.8 g/dl (6.4-8.2)
[2019-08-05] MEDS: URSODIOL 300 MG CAPSULE PO SCH ×2 (10:27→22:35)
[2019-08-05] MEDS: METOPROLOL TARTRATE 25 MG TABLET (FP) PO SCH ×2 (10:28→22:34)
[2019-08-05] MEDS: ERTAPENEM SODIUM 1 GM in SODIUM CHLORIDE 50 ML IVPB SCH (10:29)
[2019-08-05] MEDS: COLLAGENASE CLOSTRIDIUM HIST. 30 GRAMS TUBE TP SCH (10:29)
[2019-08-05] MEDS: PANTOPRAZOLE SODIUM 40 MG VIAL IVPUSH SCH (10:29)
[2019-08-05] MEDS: QUINAPRIL HCL 40 MG TABLET (FP) PO SCH (10:29)
--- NOTE | 2019-08-05 12:41 | DS ---
Physical Exam: SUBJECTIVE: Patient seen and examined. No events overnight. afebrile. OBJECTIVE: Vital Signs Period Temp Pulse Resp BP Sys/Tolentino Pulse Ox Last 24 Hr 98.2 F-98.8 F 97-105 - 122-136/55-72 95 PHYSICAL EXAM GENERAL: in NAD, nonverbal, looks comfortable EYES: PERRL, sclera anicteric ENT: moist mucous membranes. NECK: supple. LUNGS: decreased breath sounds, no accessory muscle use. HEART: RRR ABDOMEN: Soft, nontender, nondistended, normoactive bowel sounds EXTREMITIES: 2+ pulses, no edema. LABS Laboratory Results - last 24 hr 08/04/19 08/04/19 08/05/19 16:48 21:54 06:22 WBC RBC Hgb Hct MCV MCH MCHC RDW Plt Count MPV Absolute Neuts (auto) Neutrophils % Lymphocytes % Monocytes % Eosinophils % Basophils % Nucleated RBC % Sodium Potassium Chloride Carbon Dioxide Anion Gap BUN Creatinine Est GFR (CKD-EPI)AfAm Est GFR (CKD-EPI)NonAf POC Glucometer 137 220 136 Random Glucose Calcium Total Bilirubin AST ALT Alkaline Phosphatase Total Protein Albumin 08/05/19 08/05/19 08/05/19 07:15 07:15 12:17 WBC 8.9 RBC 2.58 L Hgb 7.8 L Hct 23.4 L MCV 90.7 MCH 30.2 MCHC 33.3 RDW 16.1 H Plt Count 480 H MPV 6.9 L Absolute Neuts (auto) 6.0 Neutrophils % 66.9 Lymphocytes % 22.5 Monocytes % 9.6 Eosinophils % 0.7 Basophils % 0.3 Nucleated RBC % 0 Sodium 138 Potassium 4.4 Chloride 105 Carbon Dioxide 29 Anion Gap 5 L BUN 24.3 H Creatinine 0.8 Est GFR (CKD-EPI)AfAm 75.76 Est GFR (CKD-EPI)NonAf 65.36 POC Glucometer 196 Random Glucose 141 H Calcium 8.7 Total Bilirubin 0.6 AST 41 H ALT 42 Alkaline Phosphatase 178 H Total Protein 6.8 Albumin 2.2 L HOSPITAL COURSE: Date of Admission:07/21/19 89 F h/o HLD, DM, hypothyroidism, GERD, RUE DVT formerly on AC, Stage 3 sacral decubitus ulcer and dementia, non-verbal at baseline, transferred from [facility] for rectal bleeding. Patient admitted for aspiration PNA with prolonged abx course, complicated by rectal bleeding in which was attributed to hemorrhoids. H /H now stable. CT chest showing multilobar PNA, however clinically patient appears stable and as per daughter, slightly improved from prior. HIDA scan done for transaminitis did not show gall bladder pathology. VS otherwise stable. #Multilobal PNA- improved -likely aspiration -urine cultures: Klebsiella, lactose fermenting gram neg -afebrile -IV abx: Completed 7 days of ertapenem. -aspiraton precautions -Chest CT 08/02 with no interval change. #Transaminitis 2/ choledocholithiasis -Resolved choledocholithiasis. -lfts downtrending -Abd US revealed gallstones and trace pericholecystic fluid -HIDA negative -per GI: Such as rapid rise and fall of LFTs is most consistent with passage of stones or sludge through the CBD. If LFTs rise again an MRCP will need to be reconsidered # Rectal bleeding -resolved -no further episodes of bleeding -Bleed likely due to multiple etiologies, prolapse, friability, asa use. -Per GI Rectal bleeding due to hemorrhoids. Bleeding from diverticulosis, vascular ectasias and ischemic colitis could be hourly and cause a drop in Hb. -Hgb stable -monitor H&H -cont Pantoprazole 40mg -colonoscopy discussed with family by GI, currently declining. #Iron def Anemia -likely due to chronic bleeding likely from multiple etiologies that include residual rectal prolapse repair site friablity, suspected small bowel vascular ectasias and possible large hiatal hernia [place] ulcers per GI -s/p 2 Units PRBC last admission. (07/04 and 07/08). - s/p 3x venofer this admission. 1x last admission. -po iron on discharge #Sacral decubitus ulcer stage 2 -wound care #Right arm DVT -no heparin at this time due to possible bleed -was found last admission #Type 2 DM #HTN #HLD #History of TIA-aspirin held #Dvt ppx -no hep at this time Date of Discharge: 08/05/19 Minutes to complete discharge: 35 Discharge Summary Problems reviewed: Yes Reason For Visit: RECTAL HEMORRHAGE Current Active Problems Abnormal liver function tests (Acute) Abnormal liver function tests (Acute) Anemia (Acute) Aspiration pneumonia (Acute) Choledocholithiasis (Acute) DVT of upper extremity (deep vein thrombosis) (Acute) Fever (Acute) Hematochezia (Acute) Hypothyroid (Acute) [place] (blood per rectum) (Acute) Sacral decubitus ulcer, stage III (Acute) Transaminitis (Acute) Type 2 diabetes mellitus (Acute) UTI (urinary tract infection) (Acute) Condition: Stable - Instructions Diet, Activity, Other Instructions: You were treated in the hospital for Pneumonia with IV antibiotics. You clinically improved. You also presented to the hospital with rectal bleeding. You have had no bleeding episodes since being admitted. Follow up with your primary care doctor and GI doctor within 1 week. Aspiration precautions Referrals: Rosa Greenwood MD [Staff Physician] - 1 Week Beka Weller MD [Primary Care Provider] - 1 Week Disposition: LONG TERM FACILITY - Home Medications Comprehensive Discharge Medication List: Ambulatory Orders Levothyroxine [Synthroid -] 75 mcg PO DAILY #0 tablet 06/14/13 Metoprolol Succinate [Toprol XL -] 25 mg PO DAILY #0 tab.sr.24h 06/14/13 Multivit-Min/FA/Lycopene/Lut [Centrum Silver Tablet] 1 each PO DAILY #0 tablet 06/14/13 Quinapril HCl [Accupril -] 40 mg PO DAILY #0 tablet 06/14/13 Ascorbic Acid [Vitamin C -] 500 mg PO DAILY #30 tablet 06/20/14 Memantine HCl [Namenda -] 20 mg PO HS 01/22/16 Metformin HCl [Riomet] 750 mg PO BID 01/22/16 Atorvastatin Ca [Lipitor] 10 mg PO HS tablet 07/15/19 Alprazolam [Xanax] 0.5 mg PO HS 07/21/19 Vitamin B Complex [B Complex] 1 each PO DAILY 07/21/19 Collagenase Clostridium Hist. [Santyl -] 1 applic TP DAILY tube 08/05/19 Docusate Sodium [Colace -] 100 mg PO BID PRN capsule 08/05/19 Lactulose (Oral Use) [Cephulac -] 20 gm PO Q8H PRN udc 08/05/19 Sennosides [Senna -] 1 tab PO HS tablet 08/05/19 Ursodiol [Actigal -] 300 mg PO BID capsule 08/05/19 This patient is new to me today: Yes Date on this admission: 08/05/19 Emergency Visit: Yes ED Registration Date: 07/21/19 Care time: The patient presented to the Emergency Department on the above date and was hospitalized for further evaluation of their emergent condition. Critical Care patient: No - Discharge Referral Referred to [facility] Med P.C.: No ATTENDING PHYSICIAN STATEMENT I saw and evaluated the patient. I reviewed the resident's note and discussed the case with the resident. I agree with the resident's findings and plan as documented. SUBJECTIVE: OBJECTIVE: ASSESSMENT AND PLAN:
--- NOTE | 2019-08-05 14:26 | PN ---
Teaching Attending Note Name of Resident: Joanne Fields ATTENDING PHYSICIAN STATEMENT I saw and evaluated the patient. I reviewed the resident's note and discussed the case with the resident. I agree with the resident's findings and plan as documented. SUBJECTIVE: Seen and examined at bedside. remains afebrile, daughter feeding patient at bedside. no acute events overnight OBJECTIVE: Vital Signs - 24 hr 08/04/19 08/04/19 08/04/19 18:00 21:00 22:00 Temperature 98.8 F Pulse Rate 104 H 105 H Respiratory 20 20 20 Rate Blood Pressure 130/70 136/72 O2 Sat by Pulse 95 Oximetry (%) 08/05/19 06:00 Temperature 98.2 F Pulse Rate 99 H Respiratory 20 Rate Blood Pressure 123/61 O2 Sat by Pulse Oximetry (%) PE: Constitutional: Yes: No Distress, Calm Cardiovascular: Yes: Regular Rate and Rhythm Respiratory: Yes: Regular, CTA Bilaterally Gastrointestinal: Yes: WNL, Normal Bowel Sounds, Soft Edema: No, contracted ext Neurological: Yes: Other (nonverbal) Current Medications Acetaminophen (Tylenol -) 650 mg PO Q6H PRN PRN Reason: Fever Or Pain Last Admin: 08/01/19 21:23 Dose: 650 mg Collagenase (Santyl -) 1 applic TP DAILY [facility]; Protocol Last Admin: 08/05/19 10:29 Dose: 1 applic Docusate Sodium (Colace -) 100 mg PO BID PRN PRN Reason: CONSTIPATION Last Admin: 07/31/19 10:46 Dose: 100 mg Ertapenem 1 gm/ Sodium (Chloride) 50 mls @ 100 mls/hr IVPB DAILY [facility] Last Admin: 08/05/19 10:29 Dose: 100 mls/hr Insulin Aspart (Novolog Vial Sliding Scale -) 1 vial SQ ACHS [facility]; Protocol Last Admin: 08/05/19 12:20 Dose: 2 units Lactulose (Cephulac (Oral Use)) 20 gm PO Q8H PRN PRN Reason: CONSTIPATION Last Admin: 07/23/19 23:04 Dose: 20 gm Metoprolol Tartrate (Lopressor -) 12.5 mg PO BID [facility] Last Admin: 08/05/19 10:28 Dose: 12.5 mg Pantoprazole Sodium (Protonix -) 40 mg PO DAILY [facility] Quinapril HCl (Accupril -) 40 mg PO DAILY [facility] Last Admin: 08/05/19 10:29 Dose: 40 mg Senna (Senna -) 1 tab PO HS [facility] Last Admin: 08/04/19 21:55 Dose: 1 tab Ursodiol (Actigal -) 300 mg PO BID [facility] Last Admin: 08/05/19 10:27 Dose: 300 mg Abnormal Lab Results 08/05/19 08/05/19 07:15 07:15 RBC 2.58 L Hgb 7.8 L Hct 23.4 L RDW 16.1 H Plt Count 480 H MPV 6.9 L Anion Gap 5 L BUN 24.3 H Random Glucose 141 H AST 41 H Alkaline Phosphatase 178 H Albumin 2.2 L Assessment: 89 F h/o HLD, DM, hypothyroidism, GERD, RUE DVT formerly on AC, Stage 3 sacral decubitus ulcer and dementia, non-verbal at baseline, admitted for hemorrhoidal bleed which now resolved. Also found to have UTI/PNA, and transaminitis of unknown origin. Multilobar PNA-likely aspiration Transaminitis, cholelithiasis Complicated UTI-polymicrobial HTN Lower GIB SLOAN Sacral Decub stage 3 RUE DVT Plan: completed ertapenem course lfts trended down to normal no further episodes of bleeding ID and GI following PPI wound care no AC for RUE DVT due to hemorrhoidal bleed STR dispo today Problem List - Problems (1) Anemia Code(s): D64.9 - ANEMIA, UNSPECIFIED (2) Hematochezia Code(s): K92.1 - MELENA (3) Hypothyroid Code(s): E03.9 - HYPOTHYROIDISM, UNSPECIFIED (4) TX (blood per rectum) Code(s): K62.5 - HEMORRHAGE OF ANUS AND RECTUM (5) Sacral decubitus ulcer, stage III Code(s): L89.153 - PRESSURE ULCER OF SACRAL REGION, STAGE 3 (6) Type 2 diabetes mellitus Code(s): E11.9 - TYPE 2 DIABETES MELLITUS WITHOUT COMPLICATIONS (7) Constipation Code(s): K59.00 - CONSTIPATION, UNSPECIFIED
[2019-08-05] MEDS: SENNOSIDES 8.6MG TABLET (FP) PO SCH (22:31)
[2019-08-06] MEDS: INSULIN SLIDING SCALE (NOVOLOG) 1 VIAL SQ SCH ×4 (06:55→22:58)
[2019-08-06] MEDS: ERTAPENEM SODIUM 1 GM in SODIUM CHLORIDE 50 ML IVPB SCH (09:33)
[2019-08-06] MEDS: URSODIOL 300 MG CAPSULE PO SCH ×2 (09:47→22:58)
[2019-08-06] MEDS: METOPROLOL TARTRATE 25 MG TABLET (FP) PO SCH ×2 (09:47→22:56)
[2019-08-06] MEDS: QUINAPRIL HCL 40 MG TABLET (FP) PO SCH (09:48)
[2019-08-06] MEDS ORDERED: PANTOPRAZOLE 40 MG TABLET PO SCH (10:00)
--- NOTE | 2019-08-06 11:51 | PN ---
Physical Exam: SUBJECTIVE: Patient seen and examined OBJECTIVE: Vital Signs Period Temp Pulse Resp BP Sys/Tolentino Pulse Ox Last 24 Hr 98.7 F-100.6 F 75-106 18-20 116-146/62-76 97 GENERAL: The patient is awake, alert, and fully oriented, in no acute distress. HEAD: Normal with no signs of trauma. EYES: PERRL, extraocular movements intact, sclera anicteric, conjunctiva clear. No ptosis. ENT: Ears normal, nares patent, oropharynx clear without exudates, moist mucous membranes. NECK: Trachea midline, full range of motion, supple. LUNGS: Breath sounds equal, clear to auscultation bilaterally, no wheezes, no crackles, no accessory muscle use. HEART: Regular rate and rhythm, S1, S2 without murmur, rub or gallop. ABDOMEN: Soft, nontender, nondistended, normoactive bowel sounds, no guarding, no rebound, no hepatosplenomegaly, no masses. EXTREMITIES: 2+ pulses, warm, well-perfused, no edema. NEUROLOGICAL: Cranial nerves II through XII grossly intact. Normal speech, gait not observed. PSYCH: Normal mood, normal affect. SKIN: Warm, dry, normal turgor, no rashes or lesions noted Laboratory Results - last 24 hr 08/05/19 08/05/19 08/05/19 12:17 16:56 22:32 POC Glucometer 196 175 127 08/06/19 06:53 POC Glucometer 124 Active Medications Generic Name Dose Route Start Last Admin Trade Name Freq PRN Reason Stop Dose Admin Acetaminophen 650 mg 07/26/19 18:12 08/01/19 21:23 Tylenol - PO 650 mg Q6H PRN Administration Fever Or Pain Collagenase 1 applic 07/25/19 12:00 08/05/19 10:29 Santyl - TP 1 applic DAILY [facility] Administration Protocol Docusate Sodium 100 mg 07/23/19 11:39 07/31/19 10:46 Colace - PO 100 mg BID PRN Administration CONSTIPATION Insulin Aspart 1 vial 07/21/19 07:00 08/06/19 06:55 Novolog Vial Sliding Scale - SQ Not Given ACHS [facility] Protocol Lactulose 20 gm 07/23/19 15:08 07/23/19 23:04 Cephulac (Oral Use) PO 20 gm Q8H PRN Administration CONSTIPATION Metoprolol Tartrate 12.5 mg 07/27/19 10:00 08/06/19 09:47 Lopressor - PO 12.5 mg BID [facility] Administration Pantoprazole Sodium 40 mg 08/06/19 10:00 Protonix - PO DAILY [facility] Quinapril HCl 40 mg 07/23/19 10:00 08/06/19 09:48 Accupril - PO 40 mg DAILY [facility] Administration Senna 1 tab 07/23/19 22:00 08/05/19 22:31 Senna - PO 1 tab HS [facility] Administration Ursodiol 300 mg 08/04/19 10:00 08/06/19 09:47 Actigal - PO 300 mg BID [facility] Administration ASSESSMENT/PLAN: ATTENDING PHYSICIAN STATEMENT I saw and evaluated the patient. I reviewed the resident's note and discussed the case with the resident. I agree with the resident's findings and plan as documented. SUBJECTIVE: OBJECTIVE: ASSESSMENT AND PLAN:
--- NOTE | 2019-08-06 13:30 | PN ---
Progress Note (short form) - Note Progress Note: low grade temp overnight she is alert Vital Signs Period Temp Pulse Resp BP Sys/Tolentino Pulse Ox Last 24 Hr 98.7 F-100.6 F 75-106 18-20 116-146/62-76 97 cor-rrr lungs decreased bs at bases abd soft,nt ext no edema sacral ulcer stage 2-3- no drainage or odor, dti right heel CBC, BMP 08/05/19 07:15 08/05/19 07:15 Microbiology 07/26/19 21:20 Blood - Peripheral Venous Blood Culture - Final NO GROWTH AFTER 5 DAYS INCUBATION 07/27/19 01:45 Urine - Urine - Catheterized Urine Culture - Final Klebsiella Pneumoniae Enterobacter Aerogenes Group D Strep Or Entero Coccus 07/24/19 19:16 Blood - Peripheral Venous Blood Culture - Final NO GROWTH AFTER 5 DAYS INCUBATION 07/24/19 19:10 Blood - Peripheral Venous Blood Culture - Final NO GROWTH AFTER 5 DAYS INCUBATION 07/26/19 20:35 Blood - Peripheral Venous Blood Culture - Final Staphylococcus Epidermidis 07/28/19 14:45 Urine For Antigen Detection Legionella Antigen - Final 07/28/19 14:45 Urine For Antigen Detection Streptococcus pneumoniae Antigen (M - Final 07/25/19 14:00 Urine - Urine Clean Catch Urine Culture - Final NO GROWTH OBTAINED a/p fevers- lowgrade- has completed 10 days of antibiotics for aspiration pneumonia , cxray unchanged- would observe off antibiotics normal wbc would consider ct scan of abd/pelvis if low grade fevers persist d/c antibiotics, reculture off antibiotics if needed lfts improved aspiration precautions dementia rectal bleeding resolved d/w hospitalist serivce
--- NOTE | 2019-08-06 14:23 | PN ---
Teaching Attending Note Name of Resident: Joanne Fields ATTENDING PHYSICIAN STATEMENT I saw and evaluated the patient. I reviewed the resident's note and discussed the case with the resident. I agree with the resident's findings and plan as documented. SUBJECTIVE: seen at bedside today, appears comfortable, NAD, non-verbal, small fever spikes overnight will observe 1 day without abx coverage as per ID recs. OBJECTIVE: PE: Constitutional: Yes: No Distress, Calm Cardiovascular: Yes: Regular Rate and Rhythm Respiratory: Yes: Regular, CTA Bilaterally Gastrointestinal: Yes: WNL, Normal Bowel Sounds, Soft, NT, ND Edema: No, contracted ext Neurological: Yes: Other (nonverbal) Vital Signs - 24 hr 08/05/19 08/05/19 08/05/19 15:33 18:00 21:00 Temperature 100.3 F H 100.6 F H Pulse Rate 90 Respiratory 20 Rate Blood Pressure 146/69 O2 Sat by Pulse 97 Oximetry (%) 08/05/19 08/06/19 08/06/19 22:00 03:45 06:00 Temperature 99.5 F 99 F 98.7 F Pulse Rate 91 H 87 75 Respiratory 20 18 18 Rate Blood Pressure 127/62 121/71 116/62 O2 Sat by Pulse Oximetry (%) 08/06/19 08/06/19 09:00 10:00 Temperature 98.7 F Pulse Rate 100 H Respiratory 18 Rate Blood Pressure 124/72 O2 Sat by Pulse 93 L Oximetry (%) Microbiology 07/26/19 21:20 Blood - Peripheral Venous Blood Culture - Final NO GROWTH AFTER 5 DAYS INCUBATION 07/27/19 01:45 Urine - Urine - Catheterized Urine Culture - Final Klebsiella Pneumoniae Enterobacter Aerogenes Group D Strep Or Entero Coccus 07/24/19 19:16 Blood - Peripheral Venous Blood Culture - Final NO GROWTH AFTER 5 DAYS INCUBATION 07/24/19 19:10 Blood - Peripheral Venous Blood Culture - Final NO GROWTH AFTER 5 DAYS INCUBATION 07/26/19 20:35 Blood - Peripheral Venous Blood Culture - Final Staphylococcus Epidermidis 07/28/19 14:45 Urine For Antigen Detection Legionella Antigen - Final 07/28/19 14:45 Urine For Antigen Detection Streptococcus pneumoniae Antigen (M - Final 07/25/19 14:00 Urine - Urine Clean Catch Urine Culture - Final NO GROWTH OBTAINED Current Medications Generic Name Dose Route Start Last Admin Trade Name Freq PRN Reason Stop Dose Admin Acetaminophen 650 mg 07/26/19 18:12 08/01/19 21:23 Tylenol - PO 650 mg Q6H PRN Administration Fever Or Pain Collagenase 1 applic 07/25/19 12:00 08/05/19 10:29 Santyl - TP 1 applic DAILY [facility] Administration Protocol Docusate Sodium 100 mg 07/23/19 11:39 07/31/19 10:46 Colace - PO 100 mg BID PRN Administration CONSTIPATION Insulin Aspart 1 vial 07/21/19 07:00 08/06/19 12:18 Novolog Vial Sliding Scale - SQ 2 units ACHS [facility] Administration Protocol Lactulose 20 gm 07/23/19 15:08 07/23/19 23:04 Cephulac (Oral Use) PO 20 gm Q8H PRN Administration CONSTIPATION Metoprolol Tartrate 12.5 mg 07/27/19 10:00 08/06/19 09:47 Lopressor - PO 12.5 mg BID [facility] Administration Pantoprazole Sodium 40 mg 08/06/19 10:00 Protonix - PO DAILY [facility] Quinapril HCl 40 mg 07/23/19 10:00 08/06/19 09:48 Accupril - PO 40 mg DAILY [facility] Administration Senna 1 tab 07/23/19 22:00 08/05/19 22:31 Senna - PO 1 tab HS [facility] Administration Ursodiol 300 mg 08/04/19 10:00 08/06/19 09:47 Actigal - PO 300 mg BID [facility] Administration ASSESSMENT AND PLAN: 89 F h/o HLD, DM, hypothyroidism, GERD, RUE DVT formerly on AC, Stage 3 sacral decubitus ulcer and dementia, non-verbal at baseline, admitted for hemorrhoidal bleed which now resolved. Likely microaspirating, spiking low grade fevers, no further abx as per ID recs. Will observe 1 more day off abx. Multilobar PNA-likely micro aspiration Transaminitis, cholelithiasis Complicated UTI-polymicrobial HTN Lower GIB resolved. SLOAN Sacral Decub stage 3 RUE DVT Plan: completed ertapenem course no further abx as per ID recommends, will observe 1 more day off abx lfts trended down to normal no further episodes of bleeding ID and GI following PPI wound care no AC for RUE DVT due to hemorrhoidal bleed Observe 1 day off abx and consider DC tomorrow if VSS, afebrile
[2019-08-06] MEDS: COLLAGENASE CLOSTRIDIUM HIST. 30 GRAMS TUBE TP SCH (15:25)
--- NOTE | 2019-08-06 16:18 | PN ---
Physical Exam: SUBJECTIVE: Patient seen and examined. comfortable in nad. last night febrile at 100.6. cultures, cxr OBJECTIVE: Vital Signs Period Temp Pulse Resp BP Sys/Tolentino Pulse Ox Last 24 Hr 98.7 F-100.6 F 75-100 18-20 116-146/62-72 93-97 GENERAL: in NAD, nonverbal, looks comfortable EYES: PERRL, sclera anicteric ENT: moist mucous membranes. NECK: supple. LUNGS: decreased breath sounds, no accessory muscle use. HEART: RRR ABDOMEN: Soft, nontender, nondistended, normoactive bowel sounds EXTREMITIES: 2+ pulses, no edema. Laboratory Results - last 24 hr 08/05/19 08/05/19 08/06/19 16:56 22:32 06:53 POC Glucometer 175 127 124 08/06/19 12:03 POC Glucometer 189 Active Medications Generic Name Dose Route Start Last Admin Trade Name Freq PRN Reason Stop Dose Admin Acetaminophen 650 mg 07/26/19 18:12 08/01/19 21:23 Tylenol - PO 650 mg Q6H PRN Administration Fever Or Pain Collagenase 1 applic 07/25/19 12:00 08/06/19 15:25 Santyl - TP 1 applic DAILY [facility] Administration Protocol Docusate Sodium 100 mg 07/23/19 11:39 07/31/19 10:46 Colace - PO 100 mg BID PRN Administration CONSTIPATION Famotidine 20 mg 08/06/19 15:45 Pepcid PO DAILY [facility] Insulin Aspart 1 vial 07/21/19 07:00 08/06/19 12:18 Novolog Vial Sliding Scale - SQ 2 units ACHS [facility] Administration Protocol Lactulose 20 gm 07/23/19 15:08 07/23/19 23:04 Cephulac (Oral Use) PO 20 gm Q8H PRN Administration CONSTIPATION Metoprolol Tartrate 12.5 mg 07/27/19 10:00 08/06/19 09:47 Lopressor - PO 12.5 mg BID [facility] Administration Quinapril HCl 40 mg 07/23/19 10:00 08/06/19 09:48 Accupril - PO 40 mg DAILY [facility] Administration Senna 1 tab 07/23/19 22:00 08/05/19 22:31 Senna - PO 1 tab HS [facility] Administration Ursodiol 300 mg 08/04/19 10:00 08/06/19 09:47 Actigal - PO 300 mg BID [facility] Administration ASSESSMENT/PLAN: 89 F h/o HLD, DM, hypothyroidism, GERD, RUE DVT formerly on AC, Stage 3 sacral decubitus ulcer and dementia, non-verbal at baseline, transferred from [facility] for rectal bleeding. Patient admitted for aspiration PNA with prolonged abx course, complicated by rectal bleeding in which was attributed to hemorrhoids. H /H now stable. CT chest showing multilobar PNA, however clinically patient appears stable and as per daughter, slightly improved from prior. HIDA scan done for transaminitis did not show gall bladder pathology. VS otherwise stable. #Multilobal PNA -likely aspiration -afebrile since last night. -urine cultures: Klebsiella, enterobacter, group d -FU repeat bcx -afebrile -IV abx: Completed 8 days of ertapenem. -observe off abx per ID. -aspiraton precautions -Chest CT 2 with no interval change. -Multiple discussions with family that patient is likely to keep aspirating. #Transaminitis 2/2 choledocholithiasis -Resolved choledocholithiasis. -lfts downtrending -Abd US revealed gallstones and trace pericholecystic fluid -HIDA negative -per GI: Such as rapid rise and fall of LFTs is most consistent with passage of stones or sludge through the CBD. If LFTs rise again an MRCP will need to be reconsidered # Rectal bleeding -resolved -no further episodes of bleeding -Bleed likely due to multiple etiologies, prolapse, friability, asa use. -Per GI Rectal bleeding due to hemorrhoids. Bleeding from diverticulosis, vascular ectasias and ischemic colitis could be hourly and cause a drop in Hb. -Hgb stable -monitor H&H -cont Pantoprazole 40mg -colonoscopy discussed with family by GI, currently declining. #Iron def Anemia -likely due to chronic bleeding likely from multiple etiologies that include residual rectal prolapse repair site friablity, suspected small bowel vascular ectasias and possible large hiatal hernia [place] ulcers per GI -s/p 2 Units PRBC last admission. (07/04 and 07/08). - s/p 3x venofer this admission. 1x last admission. -po iron on discharge #Sacral decubitus ulcer stage 2 -wound care #Right arm DVT -no heparin at this time due to possible bleed -was found last admission #Type 2 DM #HTN #HLD #History of TIA-aspirin held #Dvt ppx -no hep at this time Likely dc in the AM Visit type - Emergency Visit Emergency Visit: Yes ED Registration Date: 07/21/19 Care time: The patient presented to the Emergency Department on the above date and was hospitalized for further evaluation of their emergent condition. - New Patient This patient is new to me today: Yes Date on this admission: 08/06/19 - Critical Care Critical Care patient: No ATTENDING PHYSICIAN STATEMENT I saw and evaluated the patient. I reviewed the resident's note and discussed the case with the resident. I agree with the resident's findings and plan as documented. SUBJECTIVE: OBJECTIVE: ASSESSMENT AND PLAN:
[2019-08-06] MEDS: FAMOTIDINE 40 MG/5 ML ORAL SUSPENSION PO SCH (18:01)
[2019-08-06] MEDS ORDERED: INSULIN (NOVOLOG) ASPART 100 UNITS/ML 10ML VIAL ONE (19:48)
[2019-08-06] MEDS: SENNOSIDES 8.6MG TABLET (FP) PO SCH (22:53)
[2019-08-07] MEDS: INSULIN SLIDING SCALE (NOVOLOG) 1 VIAL SQ SCH ×4 (07:18→21:39)
[2019-08-07 09:43] LABS: BASO % 0.5 % (0-2.0); HEMATOCRIT 23.4 % (32.4-45.2); HEMOGLOBIN 7.9 GM/dL (10.7-15.3); LYMPH % 21.5 % (8-40); MCH 30.5 pg (25.7-33.7); MCHC 33.8 g/dl (32.0-36.0); MEAN CELL VOLUME 90.5 fl (80-96); MEAN PLT VOLUME 6.9 fl (7.5-11.1); MONO % 8.9 % (3.8-10.2); NEUT % 68.1 % (42.8-82.8); PLATELET COUNT 541 K/MM3 (134-434); RBC 2.58 M/mm3 (3.60-5.2); WHITE BLOOD COUNT 7.5 K/mm3 (4.0-10.0)
[2019-08-07] MEDS: METOPROLOL TARTRATE 25 MG TABLET (FP) PO SCH ×2 (09:54→21:40)
[2019-08-07] MEDS: URSODIOL 300 MG CAPSULE PO SCH ×2 (09:54→21:40)
[2019-08-07] MEDS: QUINAPRIL HCL 40 MG TABLET (FP) PO SCH (09:55)
[2019-08-07] MEDS: FAMOTIDINE 40 MG/5 ML ORAL SUSPENSION PO SCH (09:57)
[2019-08-07] MEDS: COLLAGENASE CLOSTRIDIUM HIST. 30 GRAMS TUBE TP SCH (09:58)
[2019-08-07 10:20] LABS: ALBUMIN 2.1 g/dl (3.4-5.0); BILIRUBIN,TOTAL 0.4 mg/dL (0.2-1); BLOOD UREA NITROGEN 30.7 mg/dL (7-18); CALCIUM 8.7 mg/dL (8.5-10.1); CREATININE 0.8 mg/dL (0.55-1.3); POTASSIUM 4.4 mmol/L (3.5-5.1)
--- NOTE | 2019-08-07 11:59 | PN ---
Physical Exam: SUBJECTIVE: Patient seen and examined. She appears comfortable in bed. OBJECTIVE: Vital Signs Period Temp Pulse Resp BP Sys/Tolentino Pulse Ox Last 24 Hr 97.7 F-100.0 F 68-99 18-18 132-154/69-94 96 GENERAL: The patient is awake, alert, and in no acute distress. LUNGS: Breath sounds equal, clear to auscultation bilaterally, no wheezes, no crackles, no accessory muscle use. HEART: Regular rate and rhythm, S1, S2 without murmur, rub or gallop. ABDOMEN: Soft, nontender, nondistended, normoactive bowel sounds, no guarding, no rebound, no hepatosplenomegaly, no masses. EXTREMITIES: 2+ pulses, warm, well-perfused, no edema. Laboratory Results - last 24 hr 08/06/19 08/06/19 08/06/19 12:03 17:41 22:48 WBC RBC Hgb Hct MCV MCH MCHC RDW Plt Count MPV Absolute Neuts (auto) Neutrophils % Lymphocytes % Monocytes % Eosinophils % Basophils % Nucleated RBC % Sodium Potassium Chloride Carbon Dioxide Anion Gap BUN Creatinine Est GFR (CKD-EPI)AfAm Est GFR (CKD-EPI)NonAf POC Glucometer 189 163 154 Random Glucose Calcium Total Bilirubin AST ALT Alkaline Phosphatase Total Protein Albumin 08/07/19 08/07/19 08/07/19 06:00 07:07 07:13 WBC 7.5 RBC 2.58 L Hgb 7.9 L Hct 23.4 L MCV 90.5 MCH 30.5 MCHC 33.8 RDW 16.0 H Plt Count 541 H MPV 6.9 L Absolute Neuts (auto) 5.1 Neutrophils % 68.1 Lymphocytes % 21.5 Monocytes % 8.9 Eosinophils % 1.0 Basophils % 0.5 Nucleated RBC % 0 Sodium 142 Potassium 4.4 Chloride 107 Carbon Dioxide 27 Anion Gap 7 L BUN 30.7 H Creatinine 0.8 Est GFR (CKD-EPI)AfAm 75.76 Est GFR (CKD-EPI)NonAf 65.36 POC Glucometer 133 Random Glucose 138 H Calcium 8.7 Total Bilirubin 0.4 AST 67 H ALT 52 Alkaline Phosphatase 173 H Total Protein 7.0 Albumin 2.1 L Active Medications Generic Name Dose Route Start Last Admin Trade Name Freq PRN Reason Stop Dose Admin Acetaminophen 650 mg 07/26/19 18:12 08/01/19 21:23 Tylenol - PO 650 mg Q6H PRN Administration Fever Or Pain Collagenase 1 applic 07/25/19 12:00 08/07/19 09:58 Santyl - TP 1 applic DAILY [facility] Administration Protocol Docusate Sodium 100 mg 07/23/19 11:39 07/31/19 10:46 Colace - PO 100 mg BID PRN Administration CONSTIPATION Famotidine 20 mg 08/06/19 15:45 08/07/19 09:57 Pepcid PO 20 mg DAILY [facility] Administration Insulin Aspart 1 vial 07/21/19 07:00 08/07/19 07:18 Novolog Vial Sliding Scale - SQ Not Given ACHS [facility] Protocol Lactulose 20 gm 07/23/19 15:08 07/23/19 23:04 Cephulac (Oral Use) PO 20 gm Q8H PRN Administration CONSTIPATION Metoprolol Tartrate 12.5 mg 07/27/19 10:00 08/07/19 09:54 Lopressor - PO 12.5 mg BID [facility] Administration Quinapril HCl 40 mg 07/23/19 10:00 08/07/19 09:55 Accupril - PO 40 mg DAILY [facility] Administration Senna 1 tab 07/23/19 22:00 08/06/19 22:53 Senna - PO 1 tab HS [facility] Administration Ursodiol 300 mg 08/04/19 10:00 08/07/19 09:54 Actigal - PO 300 mg BID [facility] Administration ASSESSMENT/PLAN: This is an 89 year old woman with a history of HTN, hyperlipidemia, type 2 DM, anemia, TIA, GERD, dementia, RUE DVT, sacral pressure ulcer who was sent to the ED from [facility] for evaluation of rectal bleeding. 1. Aspiration pneumonia - Completed antibiotics - Had temp 100.0 yesterday afternoon - will monitor 2. Choledocholithiasis - Resolved 3. Rectal bleeding secondary to hemorrhoids - Resolved - Hgb stable 4. Iron-deficiency anemia - Hgb stable 5. Hyperlipidemia - Lipitor held secondary to transaminitis 6. Type 2 DM - Continue Novolog sliding scale 7. HTN - Continue Lopressor, Accupril 8. GERD 9. Dementia 10. Recent RUE DVT - RUE venous doppler shows no evidence of DVT 11. Stage III sacral pressure ulcer - Continue wound care 12. History of TIA - Aspirin held secondary to rectal bleeding - Lipitor held secondary to transaminitis 13. Disposition - Plan for return to [facility] once authorization obtained Visit type - Emergency Visit Emergency Visit: Yes ED Registration Date: 07/21/19 Care time: The patient presented to the Emergency Department on the above date and was hospitalized for further evaluation of their emergent condition. - New Patient This patient is new to me today: Yes Date on this admission: 08/07/19 - Critical Care Critical Care patient: No - Discharge Referral Referred to [facility] Med P.C.: No
[2019-08-07] MEDS ORDERED: INSULIN (LEVEMIR) 100 UNITS/ML UNITS SQ ONE (21:14)
[2019-08-07] MEDS ORDERED: INSULIN (NOVOLOG) ASPART 100 UNITS/ML 10ML VIAL ONE (21:15)
[2019-08-07] MEDS: SENNOSIDES 8.6MG TABLET (FP) PO SCH (21:40)
[2019-08-08] MEDS: INSULIN SLIDING SCALE (NOVOLOG) 1 VIAL SQ SCH ×4 (06:24→21:50)
[2019-08-08] MEDS ORDERED: PT OWN MED DRAWER 7, Y5N ONE ×2 (08:34→09:28)
[2019-08-08] MEDS: URSODIOL 300 MG CAPSULE PO SCH ×2 (09:23→21:49)
[2019-08-08] MEDS: METOPROLOL TARTRATE 25 MG TABLET (FP) PO SCH ×2 (09:23→21:49)
[2019-08-08] MEDS: QUINAPRIL HCL 40 MG TABLET (FP) PO SCH (09:29)
[2019-08-08] MEDS: FAMOTIDINE 40 MG/5 ML ORAL SUSPENSION PO SCH (09:29)
[2019-08-08] MEDS: COLLAGENASE CLOSTRIDIUM HIST. 30 GRAMS TUBE TP SCH (09:34)
--- NOTE | 2019-08-08 14:54 | PN ---
Physical Exam: SUBJECTIVE: Patient seen and examined. She appears comfortable. OBJECTIVE: Vital Signs Period Temp Pulse Resp BP Sys/Tolentino Pulse Ox Last 24 Hr 98.5 F-99.9 F 69-100 18-20 125-143/54-80 96 GENERAL: The patient is awake, alert, and in no acute distress. LUNGS: Breath sounds equal, clear to auscultation bilaterally, no wheezes, no crackles, no accessory muscle use. HEART: Regular rate and rhythm, S1, S2, (+) 2/6 SM, no rub or gallop. ABDOMEN: Soft, nontender, nondistended, normoactive bowel sounds, no guarding, no rebound, no hepatosplenomegaly, no masses. EXTREMITIES: 2+ pulses, warm, well-perfused, no edema. Laboratory Results - last 24 hr 08/07/19 08/07/19 08/08/19 16:51 21:37 06:20 POC Glucometer 92 208 122 08/08/19 12:18 POC Glucometer 217 Active Medications Generic Name Dose Route Start Last Admin Trade Name Christianoq PRN Reason Stop Dose Admin Acetaminophen 650 mg 07/26/19 18:12 08/01/19 21:23 Tylenol - PO 650 mg Q6H PRN Administration Fever Or Pain Collagenase 1 applic 07/25/19 12:00 08/08/19 09:34 Santyl - TP 1 applic DAILY [facility] Administration Protocol Docusate Sodium 100 mg 07/23/19 11:39 07/31/19 10:46 Colace - PO 100 mg BID PRN Administration CONSTIPATION Famotidine 20 mg 08/06/19 15:45 08/08/19 09:29 Pepcid PO 20 mg DAILY [facility] Administration Insulin Aspart 1 vial 07/21/19 07:00 08/08/19 13:26 Novolog Vial Sliding Scale - SQ 4 units ACHS [facility] Administration Protocol Lactulose 20 gm 07/23/19 15:08 07/23/19 23:04 Cephulac (Oral Use) PO 20 gm Q8H PRN Administration CONSTIPATION Metoprolol Tartrate 12.5 mg 07/27/19 10:00 08/08/19 09:23 Lopressor - PO 12.5 mg BID [facility] Administration Quinapril HCl 40 mg 07/23/19 10:00 08/08/19 09:29 Accupril - PO 40 mg DAILY [facility] Administration Senna 1 tab 07/23/19 22:00 08/07/19 21:40 Senna - PO 1 tab HS [facility] Administration Ursodiol 300 mg 08/04/19 10:00 08/08/19 09:23 Actigal - PO 300 mg BID [facility] Administration ASSESSMENT/PLAN: This is an 89 year old woman with a history of HTN, hyperlipidemia, type 2 DM, anemia, TIA, GERD, dementia, RUE DVT, sacral pressure ulcer who was sent to the ED from [facility] for evaluation of rectal bleeding. 1. Aspiration pneumonia - Completed antibiotics - Afebrile 2. Choledocholithiasis - Resolved 3. Rectal bleeding secondary to hemorrhoids - Resolved - Hgb stable 4. Iron-deficiency anemia - Hgb stable 5. Hyperlipidemia - Lipitor held secondary to transaminitis 6. Type 2 DM - Continue Novolog sliding scale 7. HTN - Continue Lopressor, Accupril 8. GERD 9. Dementia 10. Recent RUE DVT - RUE venous doppler shows no evidence of DVT 11. Stage III sacral pressure ulcer - Continue wound care 12. History of TIA - Aspirin held secondary to rectal bleeding - Lipitor held secondary to transaminitis 13. Disposition - Plan for return to [facility] once authorization obtained Visit type - Emergency Visit Emergency Visit: Yes ED Registration Date: 07/21/19 Care time: The patient presented to the Emergency Department on the above date and was hospitalized for further evaluation of their emergent condition. - New Patient This patient is new to me today: No - Critical Care Critical Care patient: No - Discharge Referral Referred to [facility] Med P.C.: No
[2019-08-08] MEDS: SENNOSIDES 8.6MG TABLET (FP) PO SCH (21:49)
[2019-08-09] MEDS: INSULIN SLIDING SCALE (NOVOLOG) 1 VIAL SQ SCH ×4 (06:42→22:03)
[2019-08-09 10:03] LABS: HEMATOCRIT 23.2 % (32.4-45.2); HEMOGLOBIN 7.7 GM/dL (10.7-15.3); MCH 30.5 pg (25.7-33.7); MCHC 33.3 g/dl (32.0-36.0); MEAN CELL VOLUME 91.4 fl (80-96); MEAN PLT VOLUME 6.9 fl (7.5-11.1); PLATELET COUNT 542 K/MM3 (134-434); RBC 2.54 M/mm3 (3.60-5.2); WHITE BLOOD COUNT 7.6 K/mm3 (4.0-10.0)
[2019-08-09] MEDS ORDERED: PT OWN MED DRAWER 7, Y5N ONE (10:28)
[2019-08-09 10:32] LABS: BLOOD UREA NITROGEN 31.7 mg/dL (7-18); CALCIUM 8.9 mg/dL (8.5-10.1); CREATININE 0.8 mg/dL (0.55-1.3); POTASSIUM 4.7 mmol/L (3.5-5.1)
[2019-08-09] MEDS: URSODIOL 300 MG CAPSULE PO SCH ×2 (10:35→22:02)
[2019-08-09] MEDS: METOPROLOL TARTRATE 25 MG TABLET (FP) PO SCH ×2 (10:36→22:02)
[2019-08-09] MEDS: COLLAGENASE CLOSTRIDIUM HIST. 30 GRAMS TUBE TP SCH (10:40)
[2019-08-09] MEDS: QUINAPRIL HCL 40 MG TABLET (FP) PO SCH (11:20)
[2019-08-09] MEDS: FAMOTIDINE 40 MG/5 ML ORAL SUSPENSION PO SCH (11:20)
--- NOTE | 2019-08-09 16:16 | DS ---
Physical Exam: SUBJECTIVE: Patient seen and examined in am. Did not respond to any questions ( minimally verbal) but was awake and not in any obvious distress. OBJECTIVE: Vital Signs Period Temp Pulse Resp BP Sys/Tolentino Pulse Ox Last 24 Hr 98.1 F-99.1 F 75-101 18-20 115-148/61-81 96-96 Vital Signs Temp 98.6 F 08/09/19 18:00 Pulse 106 H 08/09/19 18:00 Resp 18 08/09/19 18:00 BP 140/79 08/09/19 18:00 Pulse Ox 96 08/09/19 09:00 Intake & Output 08/08/19 08/09/19 08/09/19 23:59 11:59 23:59 Intake Total 1000 Output Total 500 Balance 1000 -500 Intake: Oral 1000 Output: Urine 500 External Catheter 500 Other: Voiding Method External Catheter External Catheter Diaper # Unmeasured Voids Void 1 Bowel Movement No Yes Yes # Bowel Movements 1 1 Body Mass Index (BMI) 21.9 PHYSICAL EXAM GENERAL: The patient is awake, alert, in no acute distress. EYES: PERRL, extraocular movements intact, sclera anicteric ENT: edentulous, moist mucous membranes. LUNGS: Breath sounds equal, clear to auscultation bilaterally, no wheezes, no crackles HEART: Regular rate and rhythm, S1, S2 3/6 murmur RSB, LSB (radiating to L carotid) ABDOMEN: Soft, nontender, nondistended, normoactive bowel sounds, no guarding EXTREMITIES: 2+ pulses, warm, well-perfused, no edema. NEUROLOGICAL: Not verbally responsive, awake, and alert LABS CBC, BMP 08/09/19 08:35 08/09/19 08:35 Laboratory Results - last 24 hr 08/08/19 08/08/19 08/09/19 16:58 21:48 06:37 WBC RBC Hgb Hct MCV MCH MCHC RDW Plt Count MPV Sodium Potassium Chloride Carbon Dioxide Anion Gap BUN Creatinine Est GFR (CKD-EPI)AfAm Est GFR (CKD-EPI)NonAf POC Glucometer 112 189 117 Random Glucose Calcium 08/09/19 08/09/19 08/09/19 08:35 08:35 11:26 WBC 7.6 RBC 2.54 L Hgb 7.7 L Hct 23.2 L MCV 91.4 MCH 30.5 MCHC 33.3 RDW 16.0 H Plt Count 542 H MPV 6.9 L Sodium 142 Potassium 4.7 Chloride 107 Carbon Dioxide 29 Anion Gap 6 L BUN 31.7 H Creatinine 0.8 Est GFR (CKD-EPI)AfAm 75.76 Est GFR (CKD-EPI)NonAf 65.36 POC Glucometer 202 Random Glucose 115 H Calcium 8.9 Microbiology 08/06/19 01:05 Blood - Peripheral Venous Blood Culture - Preliminary NO GROWTH OBTAINED AFTER 72 HOURS, INCUBATION TO CONTINUE FOR 2 DAYS. 08/06/19 02:10 Blood - Peripheral Venous Blood Culture - Preliminary NO GROWTH OBTAINED AFTER 72 HOURS, INCUBATION TO CONTINUE FOR 2 DAYS. 08/06/19 02:10 Urine - Urine - Catheterized Urine Culture - Final NO GROWTH OBTAINED 07/26/19 21:20 Blood - Peripheral Venous Blood Culture - Final NO GROWTH AFTER 5 DAYS INCUBATION 07/27/19 01:45 Urine - Urine - Catheterized Urine Culture - Final Klebsiella Pneumoniae Enterobacter Aerogenes Group D Strep Or Entero Coccus 07/24/19 19:16 Blood - Peripheral Venous Blood Culture - Final NO GROWTH AFTER 5 DAYS INCUBATION 07/24/19 19:10 Blood - Peripheral Venous Blood Culture - Final NO GROWTH AFTER 5 DAYS INCUBATION 07/26/19 20:35 Blood - Peripheral Venous Blood Culture - Final Staphylococcus Epidermidis 07/28/19 14:45 Urine For Antigen Detection Legionella Antigen - Final 07/28/19 14:45 Urine For Antigen Detection Streptococcus pneumoniae Antigen (M - Final 07/25/19 14:00 Urine - Urine Clean Catch Urine Culture - Final NO GROWTH OBTAINED RUE venous doppler shows no evidence of DVT ABd US: Gall stones with trace pericholecystic fluid HIDA: Neg for filling defect HOSPITAL COURSE: Date of Admission:07/21/19 Date of Discharge: 08/09/19 Pt is an 89 yo F with a PMHx of HTN, HLD, T2DM, anemia, TIA, GERD, dementia, RUE DVT, sacral pressure ulcer who was sent to the ED from [facility] for evaluation of rectal bleeding. Pt was found to have bleeding hemorrhoids which resolved during the admission. She was aslo treated for aspiration PNA. Pt was seen by GI for multiple gall bladder stones with a negative HIDA scan and was not deemed a surgical candidate. Pt was noted to be iron deficient and received 3 venofer and was continued on outpt iron. She was also placed on outpt famotidine. She was continued on her home medications. Pt was noted to have silent aspiration on MBS, and was treated initially with zosyn then ertapenem. Pt's aspirin was held due to I bleed and lipitor was held due to transaminitis. Pt continued to receive local wound care for sacral ulcer and repeat duplex of RUE did not show any DVT. Pt's transaminitis improved prior to discharge. Minutes to complete discharge: 40 Discharge Summary Problems reviewed: Yes Reason For Visit: RECTAL HEMORRHAGE Current Active Problems Abnormal liver function tests (Acute) Abnormal liver function tests (Acute) Anemia (Acute) Aspiration pneumonia (Acute) Choledocholithiasis (Acute) DVT of upper extremity (deep vein thrombosis) (Acute) Fever (Acute) Hematochezia (Acute) Hypothyroid (Acute) SC (blood per rectum) (Acute) Sacral decubitus ulcer, stage III (Acute) Transaminitis (Acute) Type 2 diabetes mellitus (Acute) UTI (urinary tract infection) (Acute) Condition: Stable - Instructions Diet, Activity, Other Instructions: You were treated in the hospital for Pneumonia with IV antibiotics. You clinically improved. You also presented to the hospital with rectal bleeding from your hemorrhoids. You have had no bleeding episodes since being admitted. Follow up with your primary care doctor and GI doctor within 1 week. Avoid aspirin or over the counter pain medications such as ibuprofen (motrin) or naproxen (aleve) We are starting you on medication to protect your stomach- famotidine, take daily We are aslo starting you on iron tablets, do not take the iron tablets and the famotidine together, space them by at least 2 hours apart Aspiration precautions If you think your symptoms are not getting better with worsening bleed, shortness of breath or chest pain, please return to the nearest emergency room Referrals: Rosa Greenwood MD [Staff Physician] - 1 Week Beka Weller MD [Primary Care Provider] - 1 Week Disposition: [facility] - Home Medications Comprehensive Discharge Medication List: Ambulatory Orders Levothyroxine [Synthroid -] 75 mcg PO DAILY #0 tablet 06/14/13 Metoprolol Succinate [Toprol XL -] 25 mg PO DAILY #0 tab.sr.24h 06/14/13 Multivit-Min/FA/Lycopene/Lut [Centrum Silver Tablet] 1 each PO DAILY #0 tablet 06/14/13 Quinapril HCl [Accupril -] 40 mg PO DAILY #0 tablet 06/14/13 Ascorbic Acid [Vitamin C -] 500 mg PO DAILY #30 tablet 06/20/14 Memantine HCl [Namenda -] 20 mg PO HS 01/22/16 Metformin HCl [Riomet] 750 mg PO BID 01/22/16 Atorvastatin Ca [Lipitor] 10 mg PO HS tablet 07/15/19 Alprazolam [Xanax] 0.5 mg PO HS 07/21/19 Vitamin B Complex [B Complex] 1 each PO DAILY 07/21/19 Collagenase Clostridium Hist. [Santyl -] 1 applic TP DAILY tube 08/05/19 Docusate Sodium [Colace -] 100 mg PO BID PRN capsule 08/05/19 Ferrous Sulfate 325 mg PO Q2D #30 tablet 08/05/19 Lactulose (Oral Use) [Cephulac -] 20 gm PO Q8H PRN udc 08/05/19 Sennosides [Senna -] 1 tab PO HS tablet 08/05/19 Ursodiol [Actigal -] 300 mg PO BID capsule 08/05/19 Famotidine [Pepcid] 20 mg PO DAILY #150 ml 08/09/19 This patient is new to me today: Yes Date on this admission: 08/09/19 Emergency Visit: Yes ED Registration Date: 07/21/19 Care time: The patient presented to the Emergency Department on the above date and was hospitalized for further evaluation of their emergent condition. Critical Care patient: No - Discharge Referral Referred to [facility] Med [facility] No ATTENDING PHYSICIAN STATEMENT I saw and evaluated the patient. I reviewed the resident's note and discussed the case with the resident. I agree with the resident's findings and plan as documented. SUBJECTIVE: OBJECTIVE: ASSESSMENT AND PLAN:
--- NOTE | 2019-08-09 19:15 | PN ---
Teaching Attending Note Name of Resident: Juliana Mijares ATTENDING PHYSICIAN STATEMENT I saw and evaluated the patient. I reviewed the resident's note and discussed the case with the resident. I agree with the resident's findings and plan as documented. SUBJECTIVE: Patient appears comfortable. OBJECTIVE: Vital Signs Period Temp Pulse Resp BP Sys/Tolentino Pulse Ox Last 24 Hr 98.1 F-99.1 F 75-106 18-20 115-148/61-81 96-96 GENERAL: The patient is awake, alert, and in no acute distress. LUNGS: Breath sounds equal, clear to auscultation bilaterally, no wheezes, no crackles, no accessory muscle use. HEART: Regular rate and rhythm, S1, S2, (+) 2/6 SM, no rub or gallop. ABDOMEN: Soft, nontender, nondistended, normoactive bowel sounds, no guarding, no rebound, no hepatosplenomegaly, no masses. EXTREMITIES: 2+ pulses, warm, well-perfused, no edema. Laboratory Results - last 24 hr 08/08/19 08/09/19 08/09/19 21:48 06:37 08:35 WBC 7.6 RBC 2.54 L Hgb 7.7 L Hct 23.2 L MCV 91.4 MCH 30.5 MCHC 33.3 RDW 16.0 H Plt Count 542 H MPV 6.9 L Sodium Potassium Chloride Carbon Dioxide Anion Gap BUN Creatinine Est GFR (CKD-EPI)AfAm Est GFR (CKD-EPI)NonAf POC Glucometer 189 117 Random Glucose Calcium 08/09/19 08/09/19 08/09/19 08:35 11:26 17:07 WBC RBC Hgb Hct MCV MCH MCHC RDW Plt Count MPV Sodium 142 Potassium 4.7 Chloride 107 Carbon Dioxide 29 Anion Gap 6 L BUN 31.7 H Creatinine 0.8 Est GFR (CKD-EPI)AfAm 75.76 Est GFR (CKD-EPI)NonAf 65.36 POC Glucometer 202 126 Random Glucose 115 H Calcium 8.9 Current Medications Generic Name Dose Route Start Last Admin Trade Name Freq PRN Reason Stop Dose Admin Acetaminophen 650 mg 07/26/19 18:12 08/01/19 21:23 Tylenol - PO 650 mg Q6H PRN Administration Fever Or Pain Collagenase 1 applic 07/25/19 12:00 08/09/19 10:40 Santyl - TP 1 applic DAILY SILVINO Administration Protocol Docusate Sodium 100 mg 07/23/19 11:39 07/31/19 10:46 Colace - PO 100 mg BID PRN Administration CONSTIPATION Famotidine 20 mg 08/06/19 15:45 08/09/19 11:20 Pepcid PO 20 mg DAILY SILVINO Administration Insulin Aspart 1 vial 07/21/19 07:00 08/09/19 17:13 Novolog Vial Sliding Scale - SQ Not Given ACHS [facility] Protocol Lactulose 20 gm 07/23/19 15:08 07/23/19 23:04 Cephulac (Oral Use) PO 20 gm Q8H PRN Administration CONSTIPATION Metoprolol Tartrate 12.5 mg 07/27/19 10:00 08/09/19 10:36 Lopressor - PO 12.5 mg BID SILVINO Administration Quinapril HCl 40 mg 07/23/19 10:00 08/09/19 11:20 Accupril - PO 40 mg DAILY SILVINO Administration Senna 1 tab 07/23/19 22:00 08/08/19 21:49 Senna - PO 1 tab HS SILVINO Administration Ursodiol 300 mg 08/04/19 10:00 08/09/19 10:35 Actigal - PO 300 mg BID SILVINO Administration ASSESSMENT AND PLAN: This is an 89 year old woman with a history of HTN, hyperlipidemia, type 2 DM, anemia, TIA, GERD, dementia, RUE DVT, sacral pressure ulcer who was sent to the ED from [facility] for evaluation of rectal bleeding. 1. Aspiration pneumonia - Completed antibiotics - Afebrile 2. Choledocholithiasis - Resolved 3. Rectal bleeding secondary to hemorrhoids - Resolved - Hgb stable 4. Iron-deficiency anemia 5. Hyperlipidemia - Lipitor held secondary to transaminitis 6. Type 2 DM - Continue Novolog sliding scale 7. HTN - Continue Lopressor, Accupril 8. GERD 9. Dementia 10. Recent RUE DVT - RUE venous doppler shows no evidence of DVT 11. Stage III sacral pressure ulcer - Continue wound care 12. History of TIA - Aspirin held secondary to rectal bleeding - Lipitor held secondary to transaminitis 13. Disposition - Ok for return to [facility]
[2019-08-09] MEDS: SENNOSIDES 8.6MG TABLET (FP) PO SCH (22:03)
[2019-08-10] MEDS: INSULIN SLIDING SCALE (NOVOLOG) 1 VIAL SQ SCH ×3 (06:03→17:02)
[2019-08-10] MEDS ORDERED: PT OWN MED DRAWER 7, Y5N ONE (10:36)
[2019-08-10] MEDS: QUINAPRIL HCL 40 MG TABLET (FP) PO SCH (10:42)
[2019-08-10] MEDS: METOPROLOL TARTRATE 25 MG TABLET (FP) PO SCH (10:43)
[2019-08-10] MEDS: URSODIOL 300 MG CAPSULE PO SCH (10:43)
[2019-08-10] MEDS: FAMOTIDINE 40 MG/5 ML ORAL SUSPENSION PO SCH (10:46)
[2019-08-10] MEDS: COLLAGENASE CLOSTRIDIUM HIST. 30 GRAMS TUBE TP SCH (10:47)
[2019-08-10] MEDS ORDERED: INSULIN (NOVOLOG) ASPART 100 UNITS/ML 10ML VIAL ONE (11:35)
[2019-08-10 18:24] VITALS: BP 122/69; PULSE 98; TEMP 99.6
== END 2019-08-10 19:59 | DRG 393 ==
LOC: JER 02:48 → JERBED 05:16 → OBSVTOIN 06:42 → J5S 14:49
PROVIDERS: ADMIT Internal Medicine; ATTEND Internal Medicine
DX: K64.9 Unspecified hemorrhoids (principal); L89.153 Pressure ulcer of sacral region, stage 3; J69.0 Pneumonitis due to inhalation of food and vomit; K62.5 Hemorrhage of anus and rectum; E87.0 Hyperosmolality and hypernatremia; I82.621 Acute embolism and thrombosis of deep veins of right upper extremity; N39.0 Urinary tract infection, site not specified; K80.42 Calculus of bile duct with acute cholecystitis without obstruction; E03.9 Hypothyroidism, unspecified; F03.90 Unspecified dementia, unspecified severity, without behavioral disturbance, psychotic disturbance, mood disturbance, and anxiety; K21.9 Gastro-esophageal reflux disease without esophagitis; E78.5 Hyperlipidemia, unspecified; E11.9 Type 2 diabetes mellitus without complications; D64.9 Anemia, unspecified; Z79.84 Long term (current) use of oral hypoglycemic drugs; E88.09 Other disorders of plasma-protein metabolism, not elsewhere classified; D50.9 Iron deficiency anemia, unspecified; E78.00 Pure hypercholesterolemia, unspecified; K59.00 Constipation, unspecified; K62.3 Rectal prolapse; R74.0 Nonspecific elevation of levels of transaminase and lactic acid dehydrogenase [LDH]; R13.10 Dysphagia, unspecified; R94.5 Abnormal results of liver function studies; G47.30 Sleep apnea, unspecified; F20.9 Schizophrenia, unspecified; M11.20 Other chondrocalcinosis, unspecified site; K80.50 Calculus of bile duct without cholangitis or cholecystitis without obstruction; K57.90 Diverticulosis of intestine, part unspecified, without perforation or abscess without bleeding
CPT/HCPCS: 36415; 71045-TC-FY; 71250-TC; 73110-TC-RT-FY; 73130-TC-RT-FY; 74230-TC-FY; 76705-TC; 78226-TC; 80048; 80053; 80076; 81003; 82272; 82550; 82962; 83540; 83550; 83735; 84100; 84484; 85025; 85027; 85610; 85730; 86140; 86850; 86900; 86901; 87040; 87086; 87186; 87804; 87899; 92611-GN; 93005; 93010; 93971; 97116-GP; 97161-GP; 99285-25; A9537; G0008; G0378; J0131; J1756; J7030; Q2036